=== PATIENT | female | born 1990 | race Caucasian/White ===

== ENCOUNTER 2022-07-09 19:31 | Emergency (ER) | payer BC, SELFPAY ==
[2022-07-09 19:50] VITALS: BP 115/78; PULSE 89; TEMP 36.9; O2SAT 99; BMI 39.0
[2022-07-09] MEDS: ONDANSETRON ODT 4 MG TAB PO (20:33)
[2022-07-09] MEDS: IBUPROFEN 400 MG TABLET 800 MG PO (20:33)
[2022-07-09 20:35] LABS: Appearance Urine Clear (Clear); Bilirubin Urine Negative (Negative); Blood Urine Negative (Negative); Color Urine Yellow (Yellow); Glucose Urine Negative (Negative); Ketones Urine Trace (Negative); Leukocyte Esterase Urine Negative (Negative); Nitrite Urine Negative (Negative); Protein Urine Negative (Negative); Specific Gravity Urine 1.025 (1.000-1.030)
--- OUTSIDE RECORDS SUMMARY | 2022-07-09 20:38 | XMS_ITS | Encounter Summary ---
:1990 Author Organization [place] Address [facility] 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 Diagnoses Previous, desires PT WILL NOT BE 39 WEEKS WILL BE 36 WKS DUE TO PREVIOUS CLASSICAL Rh Labor And Delivery Procedures SECTION repeat, bilateral salpingectomy [address] [place], [place] [phone] Phone: Fax: Referral ID Status Reason Start Date Expiration Date Visits Requ ested Visits Authorized [id number] 1 1 Encounter Details Date Type Department Care Team Description 11/09/2018 Surgery [facility] Sue Herrera CESARE AN SECTION repeat, [place] [facility] bilateral salpingectomy [address] [facility] [place], [place] [address] [facility] [id number] [facility] [address] [place], [place] [address] Surgery Details Date/Time Status Location OR Service Patient Case Case Traum a Class Class Type Case? 11/09/18 11:40 Posted RH L+D LD 01 Obstetrics Surgery AM Admit Panel 1 Procedure LRB Anes Op Region Wound Class Commen ts SECTION repeat, N/A Spinal Abdomen II-Clean Co ntaminated bilateral salpingectomy Surgeon Surgeon Role Service Panel Sue Herrera MD Primary Obstetrics 1 Special Needs 4'11 240# stated documented in this encounter Social History Tobacco Use Types Packs/Day Years Used Date Smoking Tobacco: Never Smokeless Tobacco: Never Comments: Patient denies smoking Alcohol Use Standard Drinks/Week Comments No 0 (1 standard drink = 0.6 oz pure alcoho l) Alcohol Habits Answer Date Recorded How often do you have a drink containing alcohol? Never 11/02/2018 How many drinks containing alcohol do you have on a typical Not asked day when you are drinking? How often do you have six or more drinks on one occasion? No t asked Sex Assigned at Date Recorded Not on file documented as of this encounter Last Filed Vital Signs Vital Sign Reading Time Taken Comments Blood Pressure 111/54 11/09/2018 1:04 PM CATCHER HELPER Pulse 88 11/09/2018 10:00 AM CATCHER HELPER Temperature 36.4 ??C (97.5 ??F) 11/09/2018 1:04 PM CATCHER HELPER Respiratory Rate 18 11/09/2018 1:04 PM CATCHER HELPER Oxygen Saturation 96% 11/09/2018 1:08 PM CATCHER HELPER Inhaled Oxygen Concentration - - Weight 108.9 kg (240 lb) 11/09/2018 10:32 AM CATCHER HELPER Height 149.9 cm (4' 11) 11/09/2018 10:32 AM CATCHER HELPER Body Mass Index 48.47 11/09/2018 10:32 AM CATCHER HELPER documented in this encounter Discharge Summaries Sue Herrera MD - 11/12/2018 11:20 AM CST Patient was admitted 11/09/18 for repeat c/s and bilateral salpingectomies. She had a routine post-opcourse and was discharged with routine teaching. Please see hospital chart for specifics of admission. Sue Herrera HER HELPER documented in this encounter Discharge Instructions Discharge InstructionsToKerrie escamilla RN - 11/12/2018 9:32 AM CST Postop Instructions Follow up in 6 weeks for visit. Remove clear dressing in 1 week. : [phone] Activity ?? Do not lift more than 10 pounds for 6 weeks after surgery. Ask family and friends for help when you need it. ?? No driving until you have stopped taking your pain medications (usually two weeks after surgery). ?? No heavy exercise or activity for 6 weeks. Don't do anything that will put a strain on your surgery site. ?? Don't strain when using the toilet. Your care team may prescribe a stool softener if you have problems with your bowel movements. To care for your incision: ?? Keep the incision clean and dry. ?? Do not soak your incision in water. No swimming or hot tubs until it has fully healed. You may soak in the bathtub if the water level is below your incision. ?? Do not use peroxide, gel, cream, lotion, or ointment on your incision. ?? Adjust your clothes to avoid pressure on your surgery site (check the elastic in your underwear for example). You may see a small amount of clear or pink drainage and this is normal. Check with your health care provider: ?? If the drainage increases or has an odor. ?? If the incision reddens, you have swelling, or develop a rash. ?? If you have increased pain and the medicine we prescribed doesn't help. ?? If you have a fever above 100.4 F (38 C) with or without chills when placing thermometer under your tongue. The area around your incision (surgery wound), will feel numb. This is normal. The numbness should go away in less than a year. Keep your hands clean: Always wash your hands before touching your incision (surgery wound). This helps reduce your risk ofinfection. If your hands aren't dirty, you may use an alcohol hand-rub to clean your hands. Keep your nails clean and short. Call your healthcare provider if you have any of these symptoms: ?? You soak a sanitary pad with blood within 1 hour, or you see blood clots larger than a golf ball. ?? Bleeding that lasts more than 6 weeks. ?? Vaginal discharge that smells bad. ?? Severe pain, cramping or tenderness in your lower belly area. ?? A need to urinate more frequently (use the toilet more often), more urgently (use the toilet veryquickly), or it martínez when you urinate. ?? Nausea and vomiting. ?? Redness, swelling or pain around a vein in your leg. ?? Problems or a red or painful area on your breast. ?? Chest pain and cough or are gasping for air. ?? Problems with coping with sadness, anxiety or depression. If you have concerns about hurting yourself or the baby, call your provider immediately. ?? You have questions or concerns after you return home. HER HELPER documented in this encounter Medications at Time of Discharge Medication Sig Dispensed Refills Start Date End Date MV-Min-Fe Take 1 tablet by 0 Fum-FA-DHA ( 1 mouth daily PO) venlafaxine (EFFEXOR) 75 Take 75 mg by mouth 0 MG tablet 3 times daily oxyCODONE (ROXICODONE) 5 Take 1-2 tablets 20 tablet 0 11/1211/15/2018 MG tabletIndications: S/P (5-10 mg) by mouth repeat low transverse every 3 hours as needed for pain documented as of this encounter Progress Notes Kerrie Fountain RN - 11/12/2018 11:20 AM CST All discharge instructions were reviewed with patient by commercial lines underwriter and all questions answered. Patient left unit with all belongings and infant at 1120. Filled Oxycodone prescription given to patient and discussed next time available. Meaghan Little MD - 11/12/2018 8:48 AM CST POD3 Feels well, no concerns BP 126/70 Pulse 86 Temp 97.8 ??F (36.6 ??C) (Oral) Resp 18 Ht 1.499 m (4' 11) Wt 108.9 kg(240 lb) LMP 02/23/2018 SpO2 99% BMI 48.47 kg/m?? NAD Abd soft, ND Inc CDI Ext NT POD3 s/p RLTCS discharge home F/u 6 wks Meaghan Bee Sue Mcguire MD - 11/11/2018 7:38 AM CST [facility] Obstetrics Progress Note Subjective: This is the patient's second day since delivery. She is doing well. She is urinating on her own. Pain is controlled with medication. Objective: All vitals stable Temp: 98.1 ??F (36.7 ??C) Temp src: Oral BP: 101/55 Pulse: 78 Heart Rate: 84 Resp: 16 SpO2: 99 % EXAM: Constitutional: healthy, alert, no distress. Abdomen: Abdomen soft, non-tender. BS normal. No masses, fundus is firm. JOINT/EXTREMITIES: extremities normal Incision: dry and intact, some dry blood under dressing Last hemoglobin was Hemoglobin Date Value Ref Range Status 11/10/2018 10.7 (L) 11.7 - 15.7 g/dL Final ] Assessment: Stable course. Plan: Routine care. Ambulation encouraged Breast feeding strategies discussed Pain control measures as needed Reportable signs and symptoms dicussed with the patient Anticipate discharge tomorrow- will monitor for weight loss and pre-term concerns prior to discharge. Sue Herrera Anastasia Baca RN - 11/10/2018 10:08 AM CST Public Health Nurse (PHN) met with patient, discussed resources within [facility]. Provided family resources of [facility] services resource card, home visiting card, community resource guide and car seat information card given and discussed. Family is aware how to add baby to insur ance and have a primary provider arranged for baby. Explained how to self refer to [facility]. Patient declined any questions or concerns. Neville Lockwood MD - 11/10/2018 8:46 AM CST [facility] Obstetrics Post-Op / Progress Note Interval History: Doing well. Pain is well-controlled. No fevers. No history of wound drainage, warmth or significant erythema. Good appetite. Denies chest pain, shortness of breath, nausea or vomiting. Ambulatory. well. Significant Problems: Medications: All medications related to the patient's surgery have been reviewed Physical Exam: All vitals stable EXAM: Constitutional: healthy, alert, no distress. Abdomen: Abdomen soft, non-tender. BS normal. No masses, fundus is firm. Incision: Clean, dry and intact, no erythema or induration. JOINT/EXTREMITIES: extremities normal- no calf tenderness Data: All laboratory data related to this surgery reviewed Lab Results Component Value Date HGB 10.7 (L) 11/10/2018 Assessment and Plan: Assessment: Post-operative day #1 Low transverse repeat section and Bilateral salpingectomy No immediate surgical complications identified. Plan: Ambulation encouraged Neville Sanches MD HER HELPER documented in this encounter Miscellaneous Notes Plan of Care - Kerrie Fountain RN - 11/12/2018 9:28 AM CST Patient meeting expected goals. Is up independent in room, meeting all personal and infant needs. VSS. Pain is being managed with Tylenol, Ibuprofen and Oxycodone. Incision to low abdomen is with barrier film, well approximated, scant dried drainage with no signs of infection noted. Patient is aware to removed barrier film after 1 week as MD today directed her to do and to then follow up in 6 weeks in clinic. Patient is , pumping and gives EBM to infant via bottle. Patient is stable andwill be ready for discharge later today. HER HELPER Plan of Care - Karol Velasquez RN - 11/12/2018 4:53 AM CST Patient vital signs stable and meeting expected outcomes. and bottle feeding infant independently. Up independently and voiding adequately. Pain controlled with tylenol, ibuprofen, and oxycodone. Incision WDL. Able to perform all cares for self and . Bonding well with baby. Plan todischarge home today. Will continue to monitor. HER HELPER Plan of Care - Sherri Caballero RN - 11/11/2018 9:42 PM CST VS within normal limits. Eating and drinking, tolerating regular diet well. Voiding without difficulty. Pt c/o incisional pain, rating pain 5-7/10. Taking Tylenol, Ibuprofen and Oxycodone for pain. Incision covered with barrier film, small amount of old serosanguinous drainage present. Incision is well approximated, no signs of infection noted. Pt is both breast and bottle feeding with donor breast milk. Also pumping and performing hand expression. She has been independent with self and cares. Pt is attentive to 's needs, bonding well. Continue to monitor. HER HELPER Plan of Care - Kerrie Fountain RN - 11/11/2018 11:58 AM CST Patient meeting expected goals. Is up independent in room, meeting all personal and infant needs. Pain is being managed with Tylenol and Ibuprofen and discussed PRN Oxycodone availability. VSS. Incision to low abdomen is with barrier film, small dried drainage present. Incision is well approximated, and no signs of infection noted. Is both breast and bottle feeding infant with donor milk due to weight loss issues. Patient is bonding well with infant and performing all cares. Encouraged walking halls. HER HELPER Plan of Care - Jacquelin Cavazos RN - 11/11/2018 4:53 AM CST Having some increased pain, managing with tylenol and ibuprofen, also trying heating pad. Nipple cream given for sore nipples. Needing encouragement and reinforcement for baby cares. No support person this shift. Bonding well with baby. Safe sleep practices reinforced. HER HELPER Plan of Care - Shante Artis RN - 11/10/2018 9:50 PM CST Pt up ambulating independently in room . Voiding without difficulty. Incision has moist drainage under Tegaderm. Reports adequate pain control with current pain plan. Family present and supportive. Meeting expected goals. Mother attentive to infants needs. , hand expressing milk post feeds and pumping. Mother has been unable to express more than 1 or 2 drops post feeds this evening evenwith RN assistance. HER HELPER Plan of Care - Zuleyka Farrell RN - 11/10/2018 3:23 PM CST VSS, Bonding well with baby. Pain is well controlled with Toradol and tylenol. Lo catheter removed at 13:00, tolerated well. Awaiting first void post removal. Ambulated in room with a stand by assist. Steady on her feet, will call out when she needs to use the bathroom. Tolerating regular diet well. Independent in self and baby cares. is going well. HER HELPER Note - Yesenia Shah RN - 11/10/2018 11:33 AM CST LC visit. Infant has been latching frequently and well per Norah's report and RN assessments, however is LPT and small. OT's have been stable. She is also using hand expression and pumping. Weight loss is WNL. Plan for continued support with feeds and close monitoring of latch. No questions present at this time. HER HELPER Plan of Care - Aracely Brink RN - 11/10/2018 5:09 AM CST Pt stable and meeting expected goals. VSS. Pt ambulated to the bathroom and tolerated well. Urine output is adequate. Pain managed with tylenol and toradol. Pt complains of itching & given nubain, but did not get full relief. Will reassess when nubain is due again. is going well. Pt needs reinforcement on infant LPT education. Bonding with infant. Continued to monitor. HER HELPER Plan of Care - Shante Artis RN - 11/09/2018 10:08 PM CST Pt c/o nausea and had episode of emesis tolerating small amounts of water and some crackers. Incision covered with Tegaderm moist drainage noted . Reports adequate pain control with current pain plan. Family present and supportive part of the shift. Meeting expected goals. Mother attentive to infants n eeds. and hand expressing. VSS will continue to monitor. HER HELPER Plan of Care - Khadijah Cuellar RN - 11/09/2018 5:03 PM CST Data: Norah Chun transferred to [facility] via cart at 1630. Baby transferred via parent's arms. Action: Receiving unit notified of transfer: Yes. Patient and family notified of room change. Reportgiven to CHRISTIANNE Frey at 1435. Belongings sent to receiving unit. Accompanied by Registered Nurse. Oriented patient to surroundings. Call light within reach. ID bands double-checked with receiving RN. Response: Patient tolerated transfer and is stable. HER HELPER Plan of Care - Jasmine Gibson RN - 11/09/2018 3:32 PM CST Toxicology screen done in error. Patient denies being a smoker. Bedside handoff given to Khadijah FAUST. HER HELPER Provider Notification - Jasmine Gibson RN - 11/09/2018 1:30 PM CST 11/09/18 1311 Provider Notification Provider Name/Title Dr. Herrera Method of Notification At Bedside Request Evaluate in Person HER HELPER Op Note - Sue Herrera MD - 11/09/2018 1:13 PM CST Procedure Date: 11/09/2018 PREOPERATIVE DIAGNOSES: 1. Prior section x 4; most recent classical. 2. Desired permanent sterilization. 3. Inadequate cardiac visualization on outside echo of fetus. POSTOPERATIVE DIAGNOSES: 1. Prior section x 4; most recent classical. 2. Desired permanent sterilization. 3. Inadequate cardiac visualization on outside echo of fetus. 4. Tissue dystocia. 5. Adhesions. PROCEDURES: 1. Repeat low transverse section. 2. Lysis of adhesions. 3. Vacuum-assisted section. 4. Bilateral salpingectomies. SURGEON: Sue Herrera MD MACHINE PACKAGER: Oneida Ochoa PA-C, and Meaghan Bee MD ANESTHESIA: Spinal. ESTIMATED BLOOD LOSS: 146 QBL. SPECIMENS: Cord blood and blood as well as bilateral fallopian tubes. FINDINGS: A male infant with scarring of the uterus to anterior abdomen. COMPLICATIONS: Scarring of the uterus and tissue dystocia of the head. INDICATIONS: The patient is a 28-year-old G5, P3-1-0-4, at 36-0/7 weeks. She has had 4 prior sections, most recently a classical section for presentation. this time has been complicated by maternal obesity, desire for sterilization and inadequate visualization on 2 echos on outside evaluation; therefore, requiring echo within 24-48 hours after delivery. She transferred care to [facility] due to the ability to do echos over her primary provider Marina. She was seen in the office. Risks, benefits and alternatives were discussed of the procedure and she did sign informed consent. DESCRIPTION OF PROCEDURE: The patient was brought to the operating room where spinal anesthetic was placed. She was prepped and draped in the normal sterile fashion. A pause for the cause was performed. The patient and procedure were correctly identified. At that point, a low transverse skin incision was made. It was carried down to the underlying fascial layer, which was scored with Bovie electrocautery and stretched bilaterally. Two Denny clamps were placed anteriorly and the fascial layer was dissected from the rectus muscles using sharp dissection both inferior and superior. The rectus muscleswere then and the peritoneum was tented with 2 [place] clamps and entered sharply with the Hubbard scissors. A stretch of the peritoneal cavity was performed. It was taken down in meticulous layers. There were adhesions of the anterior uterus to the anterior abdominal wall. This was taken down in layers using Bovie electrocautery. The bladder flap was created and bluntly dissected inferiorly. Due to the thin lower uterine segment, it was tented anteriorly with 2 Allis clamps, entered sharply with a scalpel, clamps were removed and the hysterotomy was stretched bilaterally. The vertex delivered through the uterine wall; however, due to maternal tissue dystocia, a Kiwi vacuum extractor was placed 2 cm into the posterior fontanel and was placed in the green zone and without any pop-offs,the vertex delivered atraumatically. The fetus was delivered and remained on the abdomen with stimulation for delayed cord clamp of 1 minute, the cord was then clamped and cut by myself and the was handed to the NICU staff. At this point, the placenta delivered spontaneously, Schultze pres entation, intact with a 3-vessel cord and the uterus was attempted to be exteriorized. There was significant scarring of the uterus to the anterior abdominal wall. This was taken down in layers with Bovie electrocautery. The uterus was then exteriorized and wrapped in a moist lap. The hysterotomy was c losed with a running locked suture of 0 Monocryl and a second horizontal imbricating suture of 0 Monocryl. The bilateral salpingectomies were performed with LigaSure cautery device and the uterus was returned to the maternal abdomen noting hemostasis of both salpingectomy sites as well as the hysterotomy. Pericolic gutters were irrigated with moist laps and underlying tissue layers were made hemostatic with Bovie electrocautery. The fascia was closed with a running suture of 0 Vicryl without palpable defect. The skin was closed with INSORB malini and dressed with a Tegaderm dressing. All counts were correct and she will be transferred to PACU in stable condition. SUE HERRERA MD MT: NTS Name: NORAH RODRIGUEZ MRN: [id number] Account: [id number] : 1990 Procedure Date: 11/09/2018 Document: [id number] cc: Lidya Hanson MD HER HELPER Brief Op Note - Sue Herrera MD - 11/09/2018 1:04 PM CST [facility] Gynecology Brief Operative Note Pre-operative diagnosis: 1. 4 prior c/s, one classical 2. Desired permanent sterilization 3. Inadequate cardiac visualization on outside echo of fetus. 4. Desired sterilization Post-operative diagnosis Same 4. Tissue dystocia 5. adhesions Procedure: Procedure(s): 1. Repeat low transverse c/s 2. Lysis of adhesions 3. Vacuum assisted vaginal delivery 4. Bilateral salpingectomies Surgeon: Sue Herrera MD Assistants(s): Oneida JENSEN and Meaghan Bee MD Anesthesia: Spinal Estimated blood loss: 146 ml QBL Specimens: Cord blood and blood and bilateral fallopian tubes Findings: Male infant, scaring of uterus to anterior abdomen Complications: Scaring of uterus. Tissue dystocia of head Comments: See dictated operative report for full details Sue Herrera HER HELPER Plan of Care - Jasmine Gibson RN - 11/09/2018 11:56 AM CST , 36 weeks gestation. Here for repeat section and bilateral salpingectomy, patient has classical incision. Category 1 tracing. Consent signed. Education done. home with children. Patient's mother will accompany patient to surgery. HER HELPER Pharmacy-Admission Medication History - Maria Isabel, Annabelle T, [facility] - 11/07/2018 4:55 PM CST Admission medication history interview status for this patient is complete. See [facility] admission navigator for allergy information, prior to admission medications and immunization status. RETAIL SERVICE SPECIALIST meds completed by pre-admitting nurse Zohreh Andrade and reviewed by pharmacy Prior to Admission medications Medication Sig Last Dose Taking? Auth Provider aspirin 81 MG EC tablet Take 81 mg by mouth daily Yes Reported, Patient omeprazole 20 MG tablet Take 20 mg by mouth daily Yes Reported, Patient ondansetron (ZOFRAN-ODT) 8 MG ODT tab Take 8 mg by mouth every 8 hours as needed for nausea Yes Reported, Patient MV-Min-Fe Fum-FA-DHA ( 1 PO) Take 1 tablet by mouth daily Yes Reported, Patient venlafaxine (EFFEXOR) 75 MG tablet Take 75 mg by mouth 3 times daily Yes Reported, Patient HER HELPER documented in this encounter Plan of Treatment Not on filedocumented as of this encounter Procedures Procedure Name Priority Date/Time Associated Comments Diagnosis HEMOGLOBIN Routine 11/10/2018 7:01 AM Results f or this CATCHER HELPER procedure are i n the results section. SURGICAL PATHOLOGY Routine 11/09/2018 12:46 Resul ts for this EXAM PM CATCHER HELPER procedure are i n the results section. SECTION, WITH 11/09/2018 11:49 Previous, jennifer res BILATERAL AM CATCHER HELPER PT WILL NOT BE 39 SALPINGECTOMY WEEKS WILL BE 36 WKS DUE TO PREVIOUS CLASSICAL Special Needs 4' 240# stated DRUG ABUSE SCRN 7 UR Routine 11/09/2018 10:00 AM Results for this (/) (RH, SH, UR) CATCHER HELPER procedure are in the results section . GROUP B STREP PCR Routine 11/02/2018 Results fo r this procedure are i n the results section . RUBELLA ANTIBODY IGG Routine 04/15/2018 Results for this procedure are i n the results section . RUBELLA ANTIBODY IGG Routine 04/15/2018 Results for this procedure are i n the results section . HIV ANTIGEN ANTIBODY COMBO Routine 04/15/2018 R esults for this procedure are i n the results section . HEPATITIS B SURFACE ANTIGEN Routine 04/14/2018 Results for this procedure are i n the results section . documented in this encounter Results (ABNORMAL) Hemoglobin (11/10/2018 7:01 AM CATCHER HELPER) P athologist Signature Hemoglobin 10.7 (L) 11.7 - 15.7 11/10/2018 [place] g/dL 7:17 AM CATCHER HELPER [facility] Specimen Anatomical Collection Method Collection Time Receive d Time (Source) Location / / Volume Laterality Blood specimen 11/10/2018 7:01 AM 019 7:02 (specimen) CATCHER HELPER AM CATCHER HELPER Sue Herrera MD LAB - BLOOD ORDERABLES Performing Organization Address City/State/ZIP Code Phon e Number [place] [address] [address], [place] [address] [facility] [address] [phone] [facility] [phone] Surgical pathology exam (11/09/2018 12:46 PM CATCHER HELPER) Component Value Ref Test Analysis Performed At [facility] Range Method Time Signature Copath Report Patient Name: NORAH RODRIGUEZ MR#: [id number] Specimen #: [id number] Collected: 11/09/2018 Received: 11/09/2018 Reported: 11/10/2018 12:27 Ordering Phy(s): SUE HERRERA For improved result formatting, select 'View Enhanced Report Format' under Linked Documents section. SPECIMEN(S): Fallopian tubes, bilateral FINAL DIAGNOSIS: Fallopian tubes, right and left, salpingectomies. - Two benign transected fallopian tubes present. Electronically signed out by: Tylor Rodriguez M.D. CLINICAL HISTORY: Sterilization. GROSS: The specimen is received in formalin labeled with the patien t's name, identifying information and designated fallopian tubes, bilateral. ??It consists of two fimbriate d fallopian tubes, each measuring 5 x 1 cm. ??The serosa is pink-purple and edematous. ??Chlorine Plant Operator sectio ns of both fallopian tubes with fimbria are submitted in 2 blocks. (Dictated by: MIKEY Erazo 2018 03:58 PM) MICROSCOPIC: Microscopic evaluation performed. The technical component of this testing [facility], with the professional compo nent performed at the [facility], [address] [place] [address] ??[phone] ([phone]) CPT Codes: A: 00204-LO5 COLLECTION SITE: Client: [facility] Location: RHOB (R) Specimen (Source) Anatomical Collection Method Collection Time Re ceived Time Location / / Volume Laterality Tissue specimen BOTH FALLOPIAN 11/09/2018 12:46 (specimen) TUBES / Unknown PM CATCHER HELPER Sue [facility] Performing Organization Address City/State/ZIP Code Phon e Number [place] Drug Screen Urine / (11/09/2018 10:00 AM CATCHER HELPER) [facility] Hospitality Method Time Signature Amphetamine Qual Negative NEG^Negati 11/09/2018 [place] Urine ve 11:38 AM [facility] Comment: Cutoff for a negative amphetami ne is 500 ng/mL or less. Cannabinoids Qual Negative NEG^Negative 11/09/2018 11:39 AM [facility] Comment: Cutoff for a negative cannabino id is 50 ng/mL or less. Cocaine Qual Urine Negative NEG^Negative 11/09/2018 11:38 A [facility] Comment: Cutoff for a negative cocaine i s 300 ng/mL or less. Opiates Qualitative Negative NEG^Negative 11/09/2018 11:38 AM [facility] Comment: Cutoff for a negative opiate is 300 ng/mL or less. Pcp Qual Urine Negative NEG^Negative 11/09/2018 11:39 AM [facility] Comment: Cutoff for a negative PCP is 25 ng/mL or less. Specimen Anatomical Collection Method Collection Time Receive d Time (Source) Location / / Volume Laterality Urine specimen URINE SPECIMEN / 11/09/2018 10:00 11/09 (specimen) Unknown AM CATCHER HELPER 11:17 AM [facility] Sue Herrera MD LAB - URINE ORDERABLES Performing Organization Address City/State/ZIP Code Phon e Number M [facility] [address] [address] [facility] [address] [phone] Group B strep PCR (11/02/2018) athologist Signature Group B Strep Negative PCR Patient Reported LAB - MICRO GENERAL ORDERABL ES Rubella Antibody IgG Quantitative (04/15/2018) athologist Signature Rubella YAKELIN negative IgG Specimen (Source) Anatomical Location Collection Method / Collectio n Time Received Time / Laterality Volume Blood specimen (specimen) Patient Reported LAB - BLOOD ORDERABLES Rubella Antibody IgG Quantitative (04/15/2018) [facility] gist Method Time Signature Rubella Antibody negative IU/mL IgG Quantitative Specimen (Source) Anatomical Location Collection Method / Collectio n Time Received Time / Laterality Volume Blood specimen (specimen) Patient Reported LAB - BLOOD ORDERABLES HIV Antigen Antibody Combo (04/15/2018) Analysis Performed At [facility] Time Signature HIV Antigen non-reacti Antibody Combo ve Specimen (Source) Anatomical Location Collection Method / Collectio n Time Received Time / Laterality Volume Blood specimen (specimen) Patient Reported LAB - BLOOD ORDERABLES Hepatitis B surface antigen (04/14/2018) [facility] Time Signature Hep B Surface non-reacti Agn ve Specimen (Source) Anatomical Location Collection Method / Collectio n Time Received Time / Laterality Volume Blood specimen (specimen) Patient Reported LAB - BLOOD ORDERABLES documented in this encounter Visit Diagnoses Not on filedocumented in this encounter Administered Medications Inactive Administered Medications - up to 3 most recent administrations Medication Order MAR Action Action Date Dose Rate Site dextrose 5% in lactated ringers New Bag 11/10/2018 4:20 AM CATCHER HELPER 125 mL/hr infusion at 125 mL/hr, Intravenous, CONTINUOUS, Subsequent IV at nurse's discretion. DC IV when tolerating fluids or at nurse's discretion & saline lock., Post-procedure, Starting on Wed11/09/18 at 1400, Until 11/12/18 at 1321 New Bag 11/09/2018 8:45 PM CATCHER HELPER 125 mL/hr ibuprofen (ADVIL/MOTRIN) tablet 800 mg Given 11/12/2018 8:59 AM CATCHER HELPER 800 mg 800 mg, Oral, EVERY 6 HOURS PRN, other, cramping, Starting on Ene 11/10/18 at 1200, Start 6 hours after ketorolac is completed (if ordered). Max dose: 3200 mg/day, Post-procedure Given 11/12/2018 1:31 AM CATCHER HELPER 800 mg Given 11/11/2018 7:06 PM CATCHER HELPER 800 mg medication instruction CONTINUOUS PRN, Starting on Wed11/09/18 at 1349, Until 11/12/18 at 1321, -All intrathecal medications must be preserva tive free -All orders must be compounded in preservative free Normal Saline -Absolut shailesh no anticoagulants, thrombolytics, or antiplatelet medications or other opioid analgesics or other sedatives without prior notification of Anesthesia Service -All patients who receive intrathecal medications must have IV access., PACU/Phase II Opioid plan - medication inst ruction CONTINUOUS PRN, Starting on Wed11/09/18 at 1349, Until 11/12/18 at 1321, May give opioids (NOT Sedatives) as ordered by OB provider when patient meets parameters: respirations greater than 14 breaths per m inute, is NOT somnolent, oxygen saturation is greater than 95%, pain inadequate ly controlled with other adjuvant medications. May give other medications per O B provider orders., PACU/Phase II ORAL Pain Medications - may administer a s ordered by surgeon for take home use CONTINUOUS PRN, Starting on Wed11/09/18 at 1349, Until 11/12/18 at 1321, May administer oral pain medications as ordered by surgeon for take home use. Discontinue IV pain medication prior to administration of oral pain medication., PACU/Phase II oxyCODONE (ROXICODONE) tablet 5-10 mg Given 11/12/2018 8:59 AM CATCHER HELPER 5 mg 5-10 mg, Oral, EVERY 3 HOURS PRN, other, pain control or improvement in physical function. Hold dose for analgesic side effects., Starting on Wed11/09/18 at 1350, Start with the lowest dose. May adjust dose by 5 mg every 3 hours as needed. Notify provider to assess for uncontrolled pain or analgesic side effects. Hold while on ROUTE AIDE or with regular IV opioid dosing. Maximum total is 80 mg in 24 hours., Post-procedure Given 11/12/2018 4:22 AM CATCHER HELPER 5 mg Given 11/11/2018 8:06 PM CATCHER HELPER 5 mg oxytocin (PITOCIN) 30 units in New Bag 11/09/2018 3:32 PM CATCHER HELPER 100 mL/hr 100 mL/hr 500 mL 0.9% NaCl infusion 100 mL/hr, Intravenous, CONTINUOUS, Starting on Wed11/09/18 at 1400, Anesthesia Provider to administer at 340 mL/hr for 30 minutes (or longer per provider discretion) then decrease to 100 mL/hr. Continue until a total of 2 bags administered (1st bag initiated by Anesthesia Provider.) Discontinue IV or saline lock IV per nurse discretion., Post-procedure senna-docusate (SENOKOT-S/PERICOLACE) Given 11/12/2018 8:[address] 1 tablet 8.6-50 MG per tablet 1 tablet 1 tablet, Oral, 2 TIMES DAILY PRN, constipation, Starting on Wed11/09/18 at 1350, If no bowel movement in 24 hours, increase to 2 tablets PO. Hold for loose stools. Preferred agent for constipation related to opioids., Post-procedure Given 11/11/2018 9:06 AM CATCHER HELPER 1 tablet Given 11/10/2018 10:52 PM CATCHER HELPER 1 tablet senna-docusate (SENOKOT-S/PERICOLACE) 8. 6-50 MG per tablet 2 tablet 2 tablet, Oral, 2 TIMES DAILY PRN, const ipation, Starting on Wed11/09/18 at 1350, Hold for loose stools. Preferred agent for constipatio n related to opioids., Post-procedure sodium chloride 0.9% (bottle) irrigation Given 11/09/2018 1:09 PM CATCHER HELPER 475 mLs PRN, Starting on Wed11/09/18 at 1309, Anesthesia Intra-op sodium chloride 0.9% (bottle) irrigation Given 11/09/2018 1:10 PM CATCHER HELPER 50 mLs PRN, Starting on Wed11/09/18 at 1310, Anesthesia Intra-op venlafaxine (EFFEXOR) tablet 75 mg Given 11/12/2018 8:59 AM CATCHER HELPER 75 mg 75 mg, Oral, 3 TIMES DAILY, First dose on Wed11/09/18 at 1600 Given 11/11/2018 9:31 PM CATCHER HELPER 75 mg Given 11/11/2018 4:15 PM CATCHER HELPER 75 mg documented in this encounter Active and Recently Administered Medications Times are shown in CATCHER HELPER. Scheduled Medication Order 11/10/2018 11/11/2018 11/12/2018 acetaminophen (TYLENOL) tablet 975 mg 0242 (Given - Pr ovider: Aracely Brink RN)1114 (Given - Provider: Zuleyka Farrell RN)2001 (Given - Provider: Shante Artis RN) 0343 (Given - Provider: Jacquelin Cavazos, CHRISTIANNE )1129 (Given - Provider: Kerrie Fountain, CHRISTIANNE)2005 (Given - Provider: Sherri Caballero RN) 0422 (Given - Provider: Karol Velasquez, CHRISTIANNE) 975 mg, Oral, EVERY 8 HOURS, First dose on Wed11/09/18 at 1400, For 3 days, Do not use if patient has an active opioid/acetaminophen combined analgesic product ordered for pain. Maximum acetaminophen do se from all sources = 75 mg/kg/day not to exceed 4 grams/day., P ost-procedure ketorolac (TORADOL) injection 30 mg (COMPLETED) 0242 ( Given - Provider: Aracely Brink, CHRISTIANNE)0926 (Given - Provider: Zuleyka Farrell RN) 30 mg, Intravenous, EVERY 6 HOURS, First dose on Wed11/09/18 at 1400, For 24 hours, Give first dose in PACU (alright to give with narcotic analgesic if ordered) X 24 hours Can cause pain on injection. I f ordered intravenously (IV) : administe r through a running maintenance fluid over 1 minute followed by a flush. If patient complains of pain on injection, may dilute 15-30 mg in 5 mL and push over 1 to 2 minutes. , Post-procedure scopolamine (TRANSDERM-SCOP) patch REMOVAL 1800 (Patch /Med Removed - Provider: Shante Artis RN) Ene 11/10/18 at 1130, For 1 dose, Remove patch 24 hours after it was placed., PACU/Phase II venlafaxine (EFFEXOR) tablet 75 mg 0926 (Given - Provi ming: Zuleyka Farrell RN)1609 (Given - Provider: Shante Artis RN)2252 (Given - Provider: Shante Artis RN) 0906 (Given - Provider: Rula Orona)1615 (Given - Provider: Sherri Caballero, CHRISTIANNE)2131 (Given - Provider: Sherri Caballero RN) 0859 (Given - Provider: Kerrie Fountain, CHRISTIANNE) 75 mg, Oral, 3 TIMES DAILY, First dose on Wed11/09/18 at 1600 Continuous Medication Order 11/10/2018 11/11/2018 11/12/2018 dextrose 5% in lactated ringers infusion 0420 (New Bag - Provider: Aracely Brink, CHRISTIANNE) at 125 mL/hr, Intravenous, CONTINUOUS, S ubsequent IV at nurse's discretion. DC IV when tolerating fluids or at nurse's discretion & saline lock., Post- procedure, Starting Wed11/09/18 at 1400, Until 11/12/18 at 1321 oxytocin (PITOCIN) 30 units in 500 mL 0.9% NaCl infusion 100 mL/hr, Intravenous, at 100 mL/hr, CO NTINUOUS, Starting 11/09/18 at 1400, Post-procedure, Anesthesia Provider to administer at 340 mL/hr for 30 minutes (or longer per provider discretion) then dec rease to 100 mL/hr. Continue until a tot al of 2 bags administered (1st bag initiated by Anesthesia Provider.) Discontinue IV or saline lock IV per nurse discretion. PRN Medication Order 11/10/2018 11/11/2018 11/12/2018 acetaminophen (TYLENOL) tablet 650 mg 650 mg, Oral, EVERY 4 HOURS PRN, other, multimodal surgical pain management along with NSAIDS and opioid medication as indicated based on pain control and physical function., Starting 11/12/18 at 000 0, May give first dose 4 hours after las t scheduled dose of acetaminophen Maximum acetaminophen dose from all sources = 75 mg/kg/day not to exceed 4 grams/day., Post-procedure bisacodyl (DULCOLAX) Suppository 10 mg 10 mg, Rectal, DAILY PRN, constipation, Starting 11/11/18 at 0000, Start POD 2, Post-procedure hydrocortisone 2.5 % cream Rectal, 3 TIMES DAILY PRN, hemorrhoids, Starting 11/09/18 at 1350, Apply to hemorrhoids. Send only if nurse requests., Post-procedure ibuprofen (ADVIL/MOTRIN) tablet 800 mg 1609 (Given - P rovider: Shante Artis RN)2253 (Given - Provider: Shante Artis RN) 0728 (Given - Provider: Jacquelin Cavazos, CHRISTIANNE)1251 (Given - Provider: Kerrie Fountain, CHRISTIANNE)1906 (Given - Provider: Sherri Caballero RN) 0131 (Given - Provider: Karol langston RN)0859 (Given - Provider: Kerrie Fountain, CHRISTIANNE) 800 mg, Oral, EVERY 6 HOURS PRN, other, cramping, Starting Ene 11/10/18 at 1200, Start 6 hours after ketorolac is completed (if ordered). Max dose: 3200 mg/day, Post-procedure lactated ringers BOLUS 1,000 mL Intravenous, 1,000 mL, ONCE PRN, post pa rtum hemorrhage (PPH), Starting 11/09/18 at 1350, For 1 dose, Rate: 500-1000 mL/hr. Start IF HEMORRHAGE, Post-procedure lanolin ointment Topical, EVERY 1 HOUR PRN, dry skin, sor eness, Starting Wed11/09/18 at 1350, Apply to sore nipples after feedings, Post-procedure lidocaine (LMX4) cream Topical, EVERY 1 HOUR PRN, pain, with VA D insertion or accessing implanted port., Starting Wed11/09/18 at 1350, Do NOT give if patient has a history of allergy to any local anesthetic or any isela pro duct. Apply at least 30 minutes prior to VAD insertion or port access. In divided doses as needed for size of site for insertion with MAX Dose: 2.5 g (?? of 5 g tube), Post-procedure lidocaine 1 % 0.1-1 mL 0.1-1 mL, Other, EVERY 1 HOUR PRN, mild pain with VAD insertion., Starting Wed11/09/18 at 1350, Do NOT give if patient has a history of allergy to any local anesthetic or any isela product. MAX dose 1 mL subcutaneous OR intradermal in divid ed doses as needed for VAD insertion., Post-procedure medication instruction CONTINUOUS PRN, Starting Wed11/09/18 at 1349, Until 11/12/18 at 1321, -All intrathecal medications must be preservative free -All orders must be compounded in preservative free Normal Saline -Absolut shailesh no anticoagulants, thrombolytics, or antiplatelet medications or other opioid analgesics or other sedatives without prior notification of Anesthesia Service -All patients who receive intrathecal medications must have IV access., PACU/Phase II nalbuphine (NUBAIN) injection 2.5-5 mg (CANCELED) 0032 (Given - Provider: Aracely Brink RN)0110 (Given - Provider: Aracely Brink RN)0656 (Given - Provider: Aracely Brink RN) 2.5-5 mg, Intravenous, EVERY 6 HOURS PRN , other, for pruritus, Starting Wed11/09/18 at 1349, Give 2.5 mg initially. If pruritus persists after 30 minutes, may give additional 2.5 mg. If effective, then repeat effective dose Q6H PRN pruritus., PACU/Phase II naloxone (NARCAN) injection 0.1-0.4 mg 0.1-0.4 mg, Intravenous, EVERY 2 MIN PRN , opioid reversal, Starting 11/09/18 at 1350, For respiratory rate LESS than or EQUAL to 8. Partial reversal dose: 0.1 mg titrated q 2 minutes for Analgesia Si de Effects Monitoring Sedation Level of 3 (frequently drowsy, arousable, drifts to sleep during conversation).Full reversal dose: 0.4 mg bolus for Analgesia Side Effects Monitoring Sedation Level of 4 ( somnolent, minimal or no response to sti mulation). For ordered IV doses 0.1-2mg give IVP. Give each 0.4mg over 15 seconds in emergency situations. For non- emergent situations further dilute in 9mL of NS to facilitate titration of response., Post-procedure No MMR Needed - Assessment: Patient does not need MMR vaccine CONTINUOUS PRN, Starting Wed11/09/18 at 1350, Until 11/12/18 at 1321, Post-procedure NO Rho (D) immune globulin (RhoGam) needed - mother Rh POSITIVE CONTINUOUS PRN, Starting Wed11/09/18 at 1350, Until 11/12/18 at 1321, Post-procedure No Tdap Needed - Assessment: Patient does not need Tdap vaccine CONTINUOUS PRN, Starting 11/09/18 at 1350, Until 11/12/18 at 1321, Post-procedure ondansetron (ZOFRAN) injection 4 mg 4 mg, Intravenous, EVERY 6 HOURS PRN, na usea, vomiting, Administer over 2-5 Minutes, Starting 11/09/18 at 1350, If nausea not resolved in 15 minutes, notify provider before proceeding to prochlorpera zicam (COMPAZINE) [if ordered]. Irritant. For ordered IV doses 0.1-4 mg, give IV Push undiluted over 2-5 minutes., Post-procedure Opioid plan - medication instruction CONTINUOUS PRN, Starting Wed11/09/18 at 1349, Until 11/12/18 at 1321, May give opioids (NOT Sedatives) as ordered by OB provider when patient meets parameters: respirations greater than 14 breaths pe r minute, is NOT somnolent, oxygen satur ation is greater than 95%, pain inadequately controlled with other adjuvant medications. May give other medications per OB provider orders., PACU/Phase II ORAL Pain Medications - may administer as ordered by surgeon for take home use CONTINUOUS PRN, Starting Wed11/09/18 at 1349, Until 11/12/18 at 1321, May administer oral pain medications as ordered by surgeon for take home use. Discontinue IV pain medication prior to administration of oral pain medication., PACU/Phase II oxyCODONE (ROXICODONE) tablet 5-10 mg 12 51 (Given - Provider: Kerrie Fountain, RN)1616 (Given - Provider: Sherri Caballero, RN)2006 (Given - Provider: Sherri Caballero RN) 0422 (Given - Provider: Karol langston RN)0859 (Given - Provider: Kerrie Fountain, CHRISTIANNE) 5-10 mg, Oral, EVERY 3 HOURS PRN, other, pain control or improvement in physical function. Hold dose for analgesic side effects., Starting Wed11/09/18 at 1350, Start with the lowest dose. May adjust dos e by 5 mg every 3 hours as needed. Notif y provider to assess for uncontrolled pain or analgesic side effects. Hold while on ROUTE AIDE or with regular IV opioid dosing. Maximum total is 80 mg in 24 hours., Post-procedure oxytocin (PITOCIN) 30 units in 500 mL 0.9% NaCl infusion 340 mL/hr, Intravenous, at 340 mL/hr, CO NTINUOUS PRN, for hemorrhage (PPH) UNTIL bleeding subsided, Starting Wed11/09/18 at 1350, Post-procedure, When bleeding subsides decrease rate to 100 m L/hr. Notify provider immediately when i nfusion begun. Oxytocin is first line medication for PPH. oxytocin (PITOCIN) injection 10 Units 10 Units, Intramuscular, ONCE PRN, postp artum hemorrhage (PPH). IF no IV access is available., Starting Wed11/09/18 at 1350, For 1 dose, Oxytocin is first line medication for PPH., Post-procedure senna-docusate (SENOKOT-S/PERICOLACE) 8. 6-50 MG per tablet 1 tablet(Linked Group 1) 2251 (Given - Provider: Shante Artis RN) 0906 (Giv en - Provider: Kerrie Fountain, CHRISTIANNE) 0859 (Given - Provider: Kerrie Fountain, Rula N) 1 tablet, Oral, 2 TIMES DAILY PRN, const ipation, Starting Wed11/09/18 at 1350, If no bowel movement in 24 hours, increase to 2 tablets PO. Hold for loose stools. Preferred agent for constipation related to opioids., Post-procedure senna-docusate (SENOKOT-S/PERICOLACE) 8. 6-50 MG per tablet 2 tablet(Linked Group 1) 2252 (See Alternative - Provider: Shante Artis RN) 0906 (See Alternative - Provider: Kerrie Fountain, CHRISTIANNE) 0859 (See Alternative - Provider: Kerrie Fountain, CHRISTIANNE) 2 tablet, Oral, 2 TIMES DAILY PRN, const ipation, Starting Wed11/09/18 at 1350, Hold for loose stools. Preferred agent for constipation related to opioids., Post-procedure simethicone (MYLICON) chewable tablet 80 mg 80 mg, Oral, 4 TIMES DAILY PRN, other, g as, Starting Wed11/09/18 at 1350, Chew., Post-procedure sodium chloride (PF) 0.9% PF flush 3 mL 3 mL, Intracatheter, EVERY 1 MIN PRN, li ne flush, for peripheral IV flush post IV meds, Starting Wed11/09/18 at 1350, Post-procedure sodium phosphate (FLEET ENEMA) 1 enema 1 enema, Rectal, DAILY PRN, constipation , , Starting Wed11/11/18 at 0000, Use if bisacodyl not effective. Start POD 2., Post-procedure tranexamic acid (CYKLOKAPRON) infusion 1 g 1 g, Intravenous, Administer over 10 Min utes, EVERY 30 MIN PRN, Starting Wed11/09/18 at 1350, For 2 doses, Post- hemorrhage (PPH), Provider consultation REQUIRED and MUST be administered as soon a s the ONSET of bleeding AND within 3 breezy rs of regardless of cause of the PPH (atony OR laceration). IF bleeding continues, a 2nd dose may be administered after 30 minutes. IF concern for DIC (Diss eminated Intravascular Coagulation), obt ain coagulation studies PRIOR to administration. Mix in 50 mL or 100 mL normal saline and infuse. Contraindications include: history of PE (Pulmonary Emboli), DVT (Deep Vein Thrombosis) and current Suba rachnoid hemorrhage and active DIC., Post-procedure Linked Groups Order Group 1: senna-docusate (SENOKOT-S/PERICOLACE) 8.6-50 MG per tablet 1 tabletJump to med 1 tablet, Oral, 2 TIMES DAILY PRN, const ipation, Starting Wed11/09/18 at 1350
If no bowel movement in 24 hours, increase to 2 tablets PO. Hold for loose stools. Preferred agent for constipation related to opioids.
Post-procedure Or senna-docusate (SENOKOT-S/PERICOLACE) 8.6-50 MG per tablet 2 tabletJump to med 2 tablet, Oral, 2 TIMES DAILY PRN, const ipation, Starting Wed11/09/18 at 1350
Hold for loose stools. Preferred agent for constipation related to opioids.
Post-procedure documented in this encounter Care Teams Maintenance Journeyman Relationship Specialty Start Date End Date Lidya Hanson PCP - General powerhouse oiler 07/13/18 documented as of this encounter
--- OUTSIDE RECORDS SUMMARY | 2022-07-09 20:38 | XMS_ITS | Encounter Summary ---
:1990 Author Organization [place] Address [facility] [place] [address] Care Team Providers Name Role Phone Lidya Hanson Primary Care Provider Unavailable Reason for Visit Reason Comments Ultrasound obesity, HX c/sec x 4 (1 cla ssical), anterior placenta, re evaluate placenta Encounter Details Date Type Department Care Team Description 10/19/2018 Office Visit [facility] Luis F Foley MD [address] [place] [address] History of classical section (P rimary Dx); Maternal Katie Patel DO [address] [place] [address] Obesity affecting in second [facility] [address] [place] [address] Social History Tobacco Use Types Packs/Day Years Used Date Smoking Tobacco: Never Assessed Alcohol Habits Answer Date Recorded How often do you have a drink containing alcohol? Never 11/02/2018 How many drinks containing alcohol do you have on a typical Not asked day when you are drinking? How often do you have six or more drinks on one occasion? No t asked Sex Assigned at Date Recorded Not on file documented as of this encounter Progress Notes Katie Patel DO - 10/19/2018 2:00 PM CST Please see Imaging tab under Chart Review for details of today's US. Katie Patel DO Maternal- Medicine SHAPER SETUP OPERATOR documented in this encounter Plan of Treatment Not on filedocumented as of this encounter Visit Diagnoses Diagnosis History of classical section - Primary Obesity affecting in second tr imester documented in this encounter Care Teams Pump Attendant Relationship Specialty Start Date End Date Lidya Hanson PCP - General belt measurer 07/13/18 documented as of this encounter
--- OUTSIDE RECORDS SUMMARY | 2022-07-09 20:38 | XMS_ITS | Clinical Summary ---
:1990 Author Organization [place] Address [address] [place] [address]. [place] [address] Care Team Providers Name Role Phone Lidya Hanson Primary Care Provider Unavailable Allergies Active Allergy Reactions Severity Noted Date Comments Cats Other (See Comments) 11/09/2018 Rashes and ring worms Medications Medication Sig Dispensed Refills Start Date End Date Status venlafaxine (EFFEXOR) Take 75 mg by 0 Active 75 MG tablet mouth 3 times daily MV-Min-Fe Take 1 tablet by 0 Active Fum-FA-DHA ( 1 mouth daily PO) Active Problems Problem Noted Date S/P repeat low transverse 11/09/2018 Social History Tobacco Use Types Packs/Day Years [...] Assigned at Date Recorded Not on file Last Filed Vital Signs Vital Sign Reading Time Taken Comments Blood Pressure 122/71 11/12/2018 9:00 AM EVENT MANAGER Pulse 86 11/12/2018 2:00 AM EVENT MANAGER Temperature 36.7 ??C (98.1 ??F) 11/12/2018 9:00 AM EVENT MANAGER Respiratory Rate 18 11/12/2018 9:00 AM EVENT MANAGER Oxygen Saturation 99% 11/10/2018 9:26 AM EVENT MANAGER Inhaled Oxygen Concentration - - Weight 108.9 kg (240 lb) 11/09/2018 10:32 AM EVENT MANAGER Height 149.9 cm (4' 11) 11/09/2018 10:32 AM EVENT MANAGER Body Mass Index 48.47 11/09/2018 10:32 AM EVENT MANAGER Plan of Treatment Not on file Insurance Payer Benefit Plan / Subscriber ID Effective Dates Phone Addre ss Type Group BLUE PLUS BLUE PLUS [id number] 2018-Present [phone] [id number] [place] [address] Care Teams Lead Quality Technician Relationship Specialty Start Date End Date Lidya Hanson PCP - General gas well pumper 07/13/18
--- OUTSIDE RECORDS SUMMARY | 2022-07-09 20:38 | XMS_ITS | Encounter Summary ---
:1990 Author Organization [place] Address [facility] [place] [address] Care Team Providers Name Role Phone Lidya Beltran Primary Care Provider Unavailable Reason for Referral - Closed Specialty Diagnoses / Procedures Referred By Contact Refer red To Contact Diagnoses Suspected anomaly, antepartum, single or unspecified fetus Rh Maternal Med [address] [place] [address] Referral ID Status Reason Start Date Expiration Date Visits Requ ested Visits Authorized [id number] Closed 07/13/2018 07/13/2019 1 1 Diagnostic Imaging Ultrasound - Closed Specialty Diagnoses / Procedures Referred By Contact Refer red To Contact Diagnoses Suspected anomaly, antepartum, single or unspecified fetus Rh Maternal Med Procedures MFM US Comprehensive Single F/U [address] [place] [address] Referral ID Status Reason Start Date Expiration Date Visits Requ ested Visits Authorized [id number] Closed 07/13/2018 07/13/2019 1 1 Reason for Visit Reason Comments Ultrasound Comp- hx c/s x4 Encounter Details Date Type Department Care Team Description [facility] [address] [place] [address] Suspected anomaly, antepartum, sin gle or unspecified fetus (Primary Dx); Maternal Katie Patel DO [address] [place] [address] History of poor growth; [facility] History of c lassical section; [place] Hx of pre-eclampsia in prior , currently [address] [facility] [address] [place] [address] Social History Tobacco Use Types [...] encounter Progress Notes Katie Patel DO - 07/13/2018 11:30 AM CDT Please see Imaging tab under Chart Review for details of today's US. Katie Patel DO Maternal- Medicine documented in this encounter Plan of Treatment Scheduled Referrals Name Type Priority Associated Diagnoses Order S chedule [facility] Genetic Counseling Referral Routine Suspected an omaly, Expected: 08/03/2018 antepartum, single or (Appro ximate), unspecified fetus Expires: 1 documented as of this encounter Results [facility] US Comprehensive Single F/U (08/05/2018 9:59 AM INFORMATION TECHNOLOGY AUDITOR) Anatomical Region Laterality Modality Ultrasound Specimen (Source) Anatomical Collection Method Collection Time Re ceived Time Location / / Volume Laterality 08/05/2018 10:16 AM INFORMATION TECHNOLOGY AUDITOR Impressions 08/05/2018 10:03 AM INFORMATION TECHNOLOGY AUDITOR IMPRESSION Growth parameters and estimated we ight were consistent with appropriate for gestational age pattern of growth. The cardiac anatomy was again poorly visualized. anatomy appeared otherwise normal for gestational age. Narrative 08/05/2018 10:03 AM INFORMATION TECHNOLOGY AUDITOR Comp Follow Up Pat. Name: NORAH RODRIGUEZ Study Date: 08/05/2018 10:16am Pat. NO: [id number] Referring ??MD: CHASIDY BELTRAN Site: [place] Boat Pilot: Tomasa Stokes RDMS : 1990 Age: 28 INDICATION Reevaluate growth and suboptimal a natomy. METHOD Transabdominal ultrasound examination. V iew: Suboptimal view: limited by maternal body habitus. Suboptimal view: limited by position Sorensen . Number of fetuses: 1 DATING ? Date ?Details ?Gest. age ?LESLEY Prior assessment ? GA: 6 w + 1 d ?22 w + 2 d ? 12/07/2018 U/S ? 08/05/2018 ? based upon AC, BPD, Femur, HC ? 22 w + 2 d ? 12/07/2018 Assigned dating ?Dating performed on 07/13/2018, based on the prior assessment (on 04/14/2018) ? 22 w + 2 d ? 12/07/2018 GENERAL EVALUATION Cardiac activity present. FHR 135 bpm. movements present. Presentation tranverse with head to mate rnal left. Placenta anterior. Umbilical cord 3 vessel cord. Amniotic fluid MVP 5.6 cm. ELOINA 18.2 cm. Q1 4.6 cm, Q2 3.1 cm, Q3 5.6 cm, Q4 4.9 cm. BIOMETRY Main Biometry: BPD ?54.4 ?mm ? 22w 4d ?Toribio BENAVIDES ?69.0 ?mm ? 21w 4d ?Nicolaides HC ?197.6 ?mm ?22w 0d ?Hadlock Cerebellum tr ?24.5 ? mm ?22w 4d ?Nicolaides AC ?169.9 ?mm ?22w 0d ?Hadlock Femur ?39.1 ? mm ?22w 4d ?Hadlock Humerus ?35.7 ?mm ? 22w 3d ?Marci Weight Calculation: EFW ? 486 ? g ? 38% ?Truman EFW (lb,oz) ? 1 lb 1 ?oz EFW by ?[facility] ([id number]) Head / Face / Neck Biometry: Company Driver ? 5.6 ? mm CM ?2.1 ? mm ANATOMY The following structures appear normal: Head / Neck ? Cranium. Head size. Head shape. Lateral ventricles. Midline falx. Cavum septi pellucidi. Cisterna magna. Thalami. Face ? Profile. Heart / Thorax ?4-chamber view. LVOT view. Abdomen ? Abdominal wall. Stomach: Stomach size and situs appear normal. Bladder: Bladder appears normal in size and shape. Genitals. Spine ?Cervical spine. Thoracic spine. Lumbar spine. Sacral spine. Extremities / Skeleton ?Rig ht foot. Left foot. The following structures could not be ad equately visualized: Abdomen ? Kidneys. The following structures could not be vi sualized: Heart / Thorax ?Aortic arch view. Bicaval view. The following structures were documented previously: Heart / Thorax ?RVOT view. Ductal arch view. Gender: male. MATERNAL STRUCTURES Cervix ?Not examined Right Ovary ?Not examined Left Ovary ?Not examined RECOMMENDATION We discussed the findings on today's ult rasound with the patient. Your patient has been scheduled for a fe katlyn echocardiogram with Pediatric Cardiology. A copy of that consultation will be forwarded to you separately. A repeat ultrasound has been scheduled i n 4 weeks to reevaluate growth due to BMI >40, Return to primary provider for continued care. Thank-you for the opportunity to partici jack in the care of this patient. If you have questions regarding today's evaluation or if we can be of further service, please contact the Maternal- Medicine Center. anomalies may be present but not detected Procedure Note Quique Cooper MD - 08/05/2018Forma tting of this note might be different from the original. Comp Follow Up Pat. Name:Nirav RODRIGUEZ te:08/05/2018 10:16am Pat. NO: [id number] MD:LIDYA BELTRAN [place]:Rula Redmond :1990Age:28 INDICATION Reevaluate growth and suboptimal a natomy. METHOD Transabdominal ultrasound examination. V iew: Suboptimal view: limited by maternal body habitus. Suboptimal view: limited by position Sorensen . Number of fetuses: 1 DATING Date Details Gest. age LESLEY Prior assessment 04/14/2018 GA: 6 w + 1 d 22 w + 2 d 12/07/2018 U/S 08/05/2018 based upon AC, BPD, Femur, HC 22 w + 2 d 12/07/2018 Assigned dating Dating performed on 06/27, based on the prior assessment (on 04/14/2018) w + 2 d 12/07/2018 GENERAL EVALUATION Cardiac activity present. FHR 135 bpm. movements present. Presentation tranverse with head to mate rnal left. Placenta anterior. Umbilical cord 3 vessel cord. Amniotic fluid MVP 5.6 cm. ELOINA 18.2 cm. Q1 4.6 cm, Q2 3.1 cm, Q3 5.6 cm, Q4 4.9 cm. BIOMETRY Main Biometry: BPD 54.4 mm 22w 4d Hadlock OFD 69.0 mm 21w 4d Nicolaides HC 197.6 mm 22w 0d Hadlock Cerebellum tr 24.5 mm 22w 4d Nicolaides AC 169.9 mm 22w 0d Hadlock Femur 39.1 mm 22w 4d Hadlock Humerus 35.7 mm 22w 3d Marci Weight Calculation: EFW 486 g 38% Truman EFW (lb,oz) 1 lb 1 oz EFW by Hadlock ([id number]) Head / Face / Neck Biometry: Company Driver 5.6 mm CM 2.1 mm ANATOMY The following structures appear normal: Head / Neck Cranium. Head size. Head sha pe. Lateral ventricles. Midline falx. Cavum septi pellucidi. Cisterna magna. Thalami. Face Profile. Heart / Thorax 4-chamber view. LVOT view . Abdomen Abdominal wall. Stomach: Stomach size and situs appear normal. Bladder: Bladder appears normal in size and shape. Genitals. Spine Cervical spine. Thoracic spine. Gillian mbar spine. Sacral spine. Extremities / Skeleton Right foot. Left foot. The following structures could not be ad equately visualized: Abdomen Kidneys. The following structures could not be vi sualized: Heart / Thorax Aortic arch view. Bicaval view. The following structures were documented previously: Heart / Thorax RVOT view. Ductal arch vi ew. Gender: male. MATERNAL STRUCTURES Cervix Not examined Right Ovary Not examined Left Ovary Not examined RECOMMENDATION We discussed the findings on today's ult rasound with the patient. Your patient has been scheduled for a fe katlyn echocardiogram with Pediatric Cardiology. A copy of that consultation will be forwarded to you separately. A repeat ultrasound has been scheduled i n 4 weeks to reevaluate growth due to BMI >40, Return to primary provider for continued care. Thank-you for the opportunity to partici jack in the care of this patient. If you have questions regarding today's evaluation or if we can be of further service, please contact the Maternal- Medicine Center. anomalies may be present but not detected IMPRESSION Growth parameters and estimated we ight were consistent with appropriate for gestational age pattern of growth. The cardiac anatomy was again poorly visualized. anatomy appeared otherwise normal for gestational age. Katie Patel DO [facility] US ORDERABLES documented in this encounter Visit Diagnoses Diagnosis Suspected anomaly, antepartum, sin gle or unspecified fetus - Primary History of poor growth Personal history of problems History of classical section Hx of pre-eclampsia in prior , currently with other poor obstetric hist ory Suspected anomaly, antepartum, sin gle or unspecified fetus documented in this encounter Care Teams Mobile Service Rv Technician Relationship Specialty Start Date End Date Lidya Beltran PCP - General jig and fixture maker 07/13/18 documented as of this encounter
--- OUTSIDE RECORDS SUMMARY | 2022-07-09 20:38 | XMS_ITS | Encounter Summary ---
:1990 Author Organization [place] Address [address] [facility] [place] [address] Care Team Providers Name Role Phone Lidya Beltran Primary Care Provider Unavailable Reason for Referral Diagnostic Imaging Ultrasound - Closed Specialty Diagnoses / Procedures Referred By Contact Refer red To Contact Diagnoses History of poor growth Hx of pre-eclampsia in prior , currently Obesity affecting in second trimester Rh Maternal Med Procedures [facility] Comprehensive Single F/U [address] [place] [address] Referral ID Status Reason Start Date Expiration Date Visits Requ ested Visits Authorized [id number] Closed 08/05/2018 08/05/2019 1 1 RECOVERY WORKER Reason for Visit Diagnostic Imaging Ultrasound - Closed Specialty Diagnoses / Procedures Referred By Contact Refer red To Contact Diagnoses History of poor growth Hx of pre-eclampsia in prior , currently Obesity affecting in second trimester Rh Maternal Med Procedures [facility] Comprehensive Single F/U [address] [place] [address] Referral ID Status Reason Start Date Expiration Date Visits Requ ested Visits Authorized [id number] Closed 08/05/2018 08/05/2019 1 1 Encounter Details Date Type Department Care Team Description 08/31/2018 Hospital Encounter [facility] Finn Edmond MD [address] [place], [place] [address] History of poor growth; Maternal Steffi Zuniga, [address] [place], [place] [address] Hx of pre-eclampsia in prior , currently ; [facility] Obesity affe cting in second trimester [place] [address] [place] [address] Social History Tobacco Use Types Packs/Day Years [...] on file documented as of this encounter Plan of Treatment Not on filedocumented as of this encounter Procedures Procedure Name Priority Date/Time Associated Comments Diagnosis [facility] US COMPREHENSIVE Routine 08/31/2018 2:39 PM History of poo r Results for this SINGLE F/U TIN RECOVERY WORKER growth procedure are in Hx of pre-eclampsia the resu lts in prior , section. currently pregna nt Obesity affecting in second trimester documented in this encounter Results [facility] Comprehensive Single F/U (08/31/2018 2:39 PM TIN RECOVERY WORKER) Anatomical Region Laterality Modality Ultrasound Specimen (Source) Anatomical Collection Method Collection Time Re ceived Time Location / / Volume Laterality 08/31/2018 2:11 PM TIN RECOVERY WORKER Impressions 08/31/2018 4:00 PM TIN RECOVERY WORKER IMPRESSION 1) Intrauterine at 26 0/7 week s gestational age in the Breech presentation. 2) The visualized anatomy appears normal. The ultrasound is limited due to maternal body habitus. 3) Growth parameters and estimated weight were consistent with an appropriate for gestation age pattern of growth. 4) The amniotic fluid volume appeared no rmal. Narrative 08/31/2018 4:00 PM TIN RECOVERY WORKER Comp Follow Up Pat. Name: NORAH RODRIGUEZ Study Date: 08/31/2018 2:11pm Pat. NO: [id number] Referring ??MD: CHASIDY BELTRAN Site: [facility] Boat Hand: Rula Roberts : 1990 Age: 28 INDICATION History of x 4, BMI >40, decli javier aneuploidy screening, Suboptimal heart views on prior ultrasounds (normal peds cardiology echo today) METHOD Transabdominal ultrasound examination. V iew: Sufficient Sorensen . Number of fetuses: 1 DATING ? Date ?Details ?Gest. age ?LESLEY Prior assessment ? GA: 6 w + 1 d ?26 w + 0 d ? 12/07/2018 U/S ? 08/31/2018 ? based upon AC, BPD, Femur, HC ? 25 w + 2 d ? 12/12/2018 Assigned dating ?Dating performed on 07/13/2018, based on the prior assessment (on 04/14/2018) ? 26 w + 0 d ? 12/07/2018 GENERAL EVALUATION Cardiac activity present. FHR 145 bpm. movements present. Presentation thais breech. Placenta anterior . Umbilical cord 3 vessel cord. Amniotic fluid Amount of AF: normal. MVP 6.3 cm. BIOMETRY Main Biometry: BPD ?64.7 ?mm ? 26w 1d ?Hadlock OFD ?80.4 ?mm ? 24w 2d ?Nicolaides HC ?233.1 ?mm ?25w 2d ?Hadlock Cerebellum tr ?29.5 ? mm ?26w 2d ?Nicolaides AC ?203.9 ?mm ?25w 0d ?Hadlock Femur ?44.5 ? mm ?24w 5d ?Hadlock Humerus ?42.7 ?mm ? 25w 4d ?Marci Weight Calculation: EFW ? 755 ? g ? 31% ?Truman EFW (lb,oz) ? 1 lb 11 ? oz EFW by ?Hadlock ([id number]) Head / Face / Neck Biometry: Trial Justice ? 3.5 ? mm Nasal bone ? 8.9 ? mm ANATOMY The following structures appear normal: Head / Neck ? Cranium. Head size. Head shape. Lateral ventricles. Midline falx. Cavum septi pellucidi. Cerebellum. Thalami. Face ? Profile. Heart / Thorax ?4-chamber view. RVOT view. LVOT view. Abdomen ? Abdominal wall. Stomach: Stomach size and situs appear normal. Kidneys. Bladder: Bladder appears normal in size and shape. Genitals. Gender: male. MATERNAL STRUCTURES Cervix ?Not examined Right Ovary ?Not examined Left Ovary ?Not examined RECOMMENDATION We discussed the findings on today's ult rasound with the patient. Hx of 4 prior c/s including 1 classical c/s. Anterior placenta- not low lying. The patient has a hx of preeclampsia with severe features and delivered at 32 weeks previously. She is on a baby ASA. She is very worrie d about developing preE again. Suggested bringing up her concerns with you on Wednesday at her visit. Consider q 2 week visits for serial BP checks, etc. The patient had a echo with Peds C ards which was limited, but was otherwise normal. The aortic arch could not be seen. A echo is recommended after 24-48 hrs of life. A repeat ultrasound has been scheduled h ere in 3 weeks to reevaluate growth. Return to primary provider for continued care. Thank you for the opportunity to partici santiago in the care of this patient. If you have questions regarding today's evaluation or if we can be of further service, please contact the Maternal- Medicine Center. anomalies may be present but not detected Procedure Note Steffi Zuniga, DO - 08/31/2018 Comp Follow Up Pat. Name:GARY Nirav CHUN te:08/31/2018 2:11pm Pat. NO: [id number] MD:LIDYA BELTRAN [facility]Yakelin Mayer RDMS :1990Age:28 INDICATION History of x 4, BMI >40, decli javier aneuploidy screening, Suboptimal heart views on prior ultrasounds (normal peds cardiology echo today) METHOD Transabdominal ultrasound examination. V iew: Sufficient Sorensen . Number of fetuses: 1 DATING Date Details Gest. age LESLEY Prior assessment 04/14/2018 GA: 6 w + 1 d 26 w + 0 d 12/07/2018 U/S 08/31/2018 based upon AC, BPD, Femur, HC 25 w + 2 d 12/12/2018 Assigned dating Dating performed on 06/27, based on the prior assessment (on 04/14/2018) 26 w + 0 d 12/07/2018 GENERAL EVALUATION Cardiac activity present. FHR 145 bpm. movements present. Presentation thais breech. Placenta anterior . Umbilical cord 3 vessel cord. Amniotic fluid Amount of AF: normal. MVP 6.3 cm. BIOMETRY Main Biometry: BPD 64.7 mm 26w 1d Hadlock OFD 80.4 mm 24w 2d Nicolaides HC 233.1 mm 25w 2d Hadlock Cerebellum tr 29.5 mm 26w 2d Nicolaides AC 203.9 mm 25w 0d Hadlock Femur 44.5 mm 24w 5d Hadlock Humerus 42.7 mm 25w 4d Marci Weight Calculation: EFW 755 g 31% Truman EFW (lb,oz) 1 lb 11 oz EFW by Hadlock ([id number]) Head / Face / Neck Biometry: Trial Justice 3.5 mm Nasal bone 8.9 mm ANATOMY The following structures appear normal: Head / Neck Cranium. Head size. Head sha pe. Lateral ventricles. Midline falx. Cavum septi pellucidi. Cerebellum. Thalami. Face Profile. Heart / Thorax 4-chamber view. RVOT view . LVOT view. Abdomen Abdominal wall. Stomach: Stomach size and situs appear normal. Kidneys. Bladder: Bladder appears normal in size and shape. Genitals. Gender: male. MATERNAL STRUCTURES Cervix Not examined Right Ovary Not examined Left Ovary Not examined RECOMMENDATION We discussed the findings on today's [facility] rasound with the patient. Hx of 4 prior c/s including 1 classical c/s. Anterior placenta- not low lying. The patient has a hx of preeclampsia with severe features and delivered at 32 weeks previously. She is on a baby ASA. She is very worrie d about developing preE again. Suggested bringing up her concerns with you on Wednesday at her visit. Consider q 2 week visits for serial BP checks, etc. The patient had a echo with Peds C ards which was limited, but was otherwise normal. The aortic arch could not be seen. A echo is recommended after 24-48 hrs of life. A repeat ultrasound has been scheduled h ere in 3 weeks to reevaluate growth. Return to primary provider for continued care. Thank you for the opportunity to partici jack in the care of this patient. If you have questions regarding today's evaluation or if we can be of further service, please contact the [facility] Medicine [facility]. anomalies may be present but not detected IMPRESSION 1) Intrauterine at 26 0/7 week s gestational age in the Breech presentation. 2) The visualized anatomy appears normal. The ultrasound is limited due to maternal body habitus. 3) Growth parameters and estimated weight were consistent with an appropriate for gestation age pattern of growth. 4) The amniotic fluid volume appeared no rmal. Quique Cooper MD [facility] US ORDER[facility] documented in this encounter Visit Diagnoses Diagnosis History of poor growth Personal history of problems Hx of pre-eclampsia in prior , currently with other poor obstetric hist ory Obesity affecting in second tr aydin documented in this encounter Care Teams Live Source Operator Relationship Specialty Start Date End Date Lidya Beltran PCP - General harvest worker field crop 07/13/18 documented as of this encounter
--- OUTSIDE RECORDS SUMMARY | 2022-07-09 20:38 | XMS_ITS | Encounter Summary ---
:1990 Author Organization [place] Address [address] [place] [address]. [place] [address] Care Team Providers Name Role Phone Lidya Hanson Primary Care Provider Unavailable Tate Ibrahim ASSISTANT CHIEF ENGINEER Unavailable Encounter Details Date Type Department Care Team Description 11/02/2018 Orders Only [facility] Sue Her, Pre-op Formerly [facility] laboratory examination [address] [employer] (Primary Dx) [place], [place] [address] [facility] [id number] [facility] [address] [place] [address] Social History Tobacco Use Types Packs/Day Years Used Date Smoking Tobacco: Never Smokeless Tobacco: Never Alcohol Use Standard Drinks/Week Comments No 0 [...] Not on filedocumented as of this encounter Results Hemoglobin (11/08/2018 10:08 AM [facility]) athologist Signature Hemoglobin 12.6 11.7 - 15.7 11/08/2018 [facility] g/dL 10:11 AM [facility] Specimen Anatomical Collection Method Collection Time Receive d Time (Source) Location / / Volume Laterality Blood specimen 11/08/2018 10:08 9 (specimen) AM [facility] 10:09 AM [facility] Sue Her MD LAB - BLOOD ORDERABLES Performing Organization Address City/[facility]/ZIP Code Phon e Number [facility] [address] [place], [place] [address] [place] [address] [address] [place], [place] [address], [facility] [phone] ABO/Rh type and screen (11/08/2018 10:08 AM [facility] SCI[facility] TE[facility]) [facility] Method Time Signature Units Ordered 2 11/09/2018 [facility] 9:57 AM [facility] ABO O 11/08/2018 [facility] 10:53 AM [facility] RH(D) Pos [facility] Antibody Neg 11/08/2018 [facility] Screen 10:53 AM [facility] Test Valid [place] 11/08/2018 [facility] Only At [facility] 10:39 AM [facility] Specimen 11/11/2018 11/08/2018 [facility] Expires 10:39 AM [facility] Crossmatch Red Blood 11/09/2018 [facility] Cells 9:57 AM [facility] Specimen Anatomical Collection Method Collection Time Receive d Time (Source) Location / / Volume Laterality Blood specimen 11/08/2018 10:08 9 (specimen) AM [facility] 10:09 AM [facility] Sue Her MD LAB - BLOOD BANK TEST ORDER Performing Organization Address [facility]/ZIP [facility] [place]on [place] Number [facility] [address] [place], [place] [address] [facility] [address] [place], [place] [address], [facility] [phone] documented in this encounter Visit Diagnoses Diagnosis Pre-operative laboratory examination - P rimary Pre-procedural laboratory examination documented in this encounter Care Teams Line Lead Relationship Specialty Start Date End Date Lidya Hanson PCP - General loan review analyst 07/13/18 Tate Ibrahim LSW Lead Credit Associate Primary Care - CC 01/09/19 05/15/19 documented as of this encounter
--- OUTSIDE RECORDS SUMMARY | 2022-07-09 20:38 | XMS_ITS | Encounter Summary ---
:1990 Author Organization [place] Address 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 - Closed Specialty Diagnoses / Procedures Referred By Contact Refer red To Contact Diagnoses Suspected anomaly, antepartum, single or unspecified fetus Rh Maternal Med [address] [place] [address] Referral ID Status Reason Start Date Expiration Date Visits Requ ested Visits Authorized [id number] Closed 07/13/2018 07/13/2019 1 1 Encounter Details Date Type Department Care Team Description 08/05/2018 Office Visit [facility] Katie Patel DO [address] [place], [place] [id number] Suspected Maternal Quique Cooper MD [address] [place] [address] anomaly, antepartum, Medicine Center Kev Morrow GC MATERNAL MEDICINE [address] [place], [place] [address] single or [place] unspecified fetus [address] [place] [address] Social History Tobacco Use Types Packs/Day Years [...] documented as of this encounter Progress Notes Kev Morrow, - 08/05/2018 8:[address] [facility] Genetic Counseling Consult Patient: Barbra Chun Date of : 1990 Date of Service: 08/05/18 Barbra Chun was seen at the [facility] for genetic consultation as part of her appointment for comprehensive ultrasound. The indication for genetic counseling is marker for increased risk for Down syndrome identified on anatomy scan. Impression/Plan: 1. 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 Please see the ultrasound report for further details. Barbra returned to [facility] today for a follow up scan and genetic counseling. 2. Barbra had a cell-free DNA test in the interim time period, which was normal. History: /Parity: Age at Delivery: 28 year old LESLEY: 12/07/2018, by Ultrasound Gestational Age: 22w2d ??? No significant complications or exposures were reported in the current . ??? Barbra???s history is significant for 4 prior pregnancies, all delivered via , the most recent prematurely due to preeclampsia. Please see corresponding physician note from Barbra's first comprehensive ultrasound for Dr. Patel's recommendations regarding management of Barbra's current . Medical History: Barbra???s reported medical history is not expected to impact management or risks to fetaldevelopment. Family History: A three-generation pedigree was not obtained, but Barbra denies any family history of multiple miscarriages, stillbirths, defects, cognitive impairment, known genetic conditions, and consanguinity. Risk Assessment for Chromosome Conditions: We explained that the risk for chromosome abnormalities increases with maternal age. We discussed specific features of common chromosome abnormalities, including Down syndrome, trisomy 13, trisomy 18, and sex chromosome trisomies. ??? - At age 28 at midtrimester, the risk to have a baby with Down syndrome is 1 in 990. ??? - At age 28 at midtrimester, the risk to have a baby with any chromosome abnormality is 1 in 495. ??? - At age 28 at delivery, the risk to have a baby with Down syndrome is 1 in 1176. ??? - At age 28 at delivery, the risk to have a baby with any chromosome abnormality is 1 in 476. We discussed that markers identified on a level II ultrasound are findings that are used to adjust risk for chromosome abnormalities. We discussed the specific finding that was identified on her initial scan, hypoplastic nasal bone. This finding is a common variant in the general population and seen in as many as 1% of pregnancies. It is not expected to cause any complications or concerns on its own,but we discussed that when it is identified, it increases the risk for a to be affected with Down syndrome. We discussed that the relative risk increase for an hypoplastic nasal bone is 20.1.Based on a current age related risk of 1/990, the adjusted risk for Barbra???s to be affected with Down syndrome is 1/49, or slightly over 2%. We discussed that conversely there is a 98% chance that the does not have Down syndrome. ??? Barbra had maternal serum screening earlier in . Non-invasive Testing (NIPT) ??? Maternal plasma cell-free DNA testing ??? Screens for trisomy 21, trisomy 13, trisomy 18, and sex chromosome aneuploidy ??? First trimester ultrasound with nuchal translucency and nasal bone assessment was not performed in this , to our knowledge. ??? Barbra had a [id number] test earlier in ; we reviewed the results today, which are normal for chromosome 13, chromosome 18 and chromosome 21 (no aneuploidy detected) ??? Given the accuracy of this test, these results greatly decrease the chance for certain chromosome abnormalities ??? We discussed the limitations of normal NIPT results ?? MSAFP (after 15 weeks for open neural tube defect screening) results were not available for our review today. Given the low risk NIPT result, the risks for Brabra's to be affected with Down syndrome are greatly reduced, and considered low, but not zero. Testing Options: We discussed the following options: Non-invasive Testing (NIPT) ?? Maternal plasma cell-free DNA testing; first trimester ultrasound with nuchal translucency and nasal bone assessment is recommended, when appropriate ?? Screens for trisomy 21, trisomy 13, trisomy 18, and sex chromosome aneuploidy ?? Cannot screen for open neural tube defects; maternal serum AFP after 15 weeks is recommended Genetic Amniocentesis ?? Invasive procedure typically performed in the second trimester by which amniotic fluid is obtained for the purpose of chromosome analysis and/or other genetic analysis ?? Diagnostic results; >99% sensitivity for chromosome abnormalities ?? AFAFP measurement tests for open neural tube defects Comprehensive (Level II) ultrasound: Detailed ultrasound performed between 18- 22 weeks gestation toscreen for major defects and markers for aneuploidy. We reviewed the benefits and limitations of this testing. Screening tests provide a risk assessment specific to the for certain chromosome abnormalities, but cannot definitively diagnose or exclude a chromosome abnormality. Follow-up genetic counseling and consideration of diagnostic testing is recommended with any abnormal screening result. Diagnostic tests carry inherent risks- including risk of miscarriage- that require careful consideration. These tests can detect chromosome abnormalities with greater than 99% certainty. Results can be compromised by maternal cell contamination or mosaicism, and are limited by the resolution of c ytogenetic G-banding technology. There is no screening nor diagnostic test that can detect all formsof defects or mental disability. It was a pleasure to be involved with Barbra???s care. [id number] time of the meeting was 20 minutes. Kev Morrow MS, [facility] Licensed Genetic Counselor Pager: [phone] NG MACHINE OPERATOR SEMIAUTOMATIC documented in this encounter Plan of Treatment Not on filedocumented as of this encounter Visit Diagnoses Diagnosis Suspected anomaly, antepartum, sin gle or unspecified fetus documented in this encounter Care Teams Senior Accountant Analyst Relationship Specialty Start Date End Date Lidya Hanson PCP - General court security officer 07/13/18 documented as of this encounter
--- OUTSIDE RECORDS SUMMARY | 2022-07-09 20:38 | XMS_ITS | Encounter Summary ---
:1990 Author Organization [place] Address [address] [place] [address] Care Team Providers Name Role Phone Lidya Beltran Primary Care Provider Unavailable Reason for Referral Diagnostic Imaging Ultrasound - Closed Specialty Diagnoses / Procedures Referred By Contact Refer red To Contact Diagnoses BMI 45.0-49.9, adult (H) Ur Maternal Med Procedures [facility] Comprehensive Single F/U [address] [place], [place] [address] Referral ID Status Reason Start Date Expiration Date Visits Requ ested Visits Authorized [id number] Closed 08/31/2018 08/31/2019 1 1 ESS PLANNER Reason for Visit Diagnostic Imaging Ultrasound - Closed Specialty Diagnoses / Procedures Referred By Contact Refer red To Contact Diagnoses BMI 45.0-49.9, adult (H) Ur Maternal Med Procedures [facility] Comprehensive Single F/U [address] [place], [place] [address] Referral ID Status Reason Start Date Expiration Date Visits Requ ested Visits Authorized [id number] Closed 08/31/2018 08/31/2019 1 1 Encounter Details Date Type Department Care Team Description 09/21/2018 Hospital Encounter [facility] Nano Michel DO [address] [address] BMI 45.0-49.9, Maternal Luis F Foley MD [address] [place] [address] adult (H) [facility] [address] [place] [address] Social History Tobacco Use Types [...] Procedure Name Priority Date/Time Associated Comments Diagnosis [facility] COMPREHENSIVE Routine 09/21/2018 10:59 BMI 45.0-49.9, R esults for this SINGLE F/U AM PROCESS PLANNER adult (H) procedure are i n the results section. documented in this encounter Results [facility] Comprehensive Single F/U (09/21/2018 10:59 AM PROCESS PLANNER) Anatomical Region Laterality Modality Ultrasound Specimen (Source) Anatomical Collection Method Collection Time Re ceived Time Location / / Volume Laterality 09/21/2018 10:32 AM PROCESS PLANNER Impressions 09/21/2018 1:52 PM PROCESS PLANNER IMPRESSION 1) Sorensen intrauterine at 2 9 weeks 0 days gestational age. 2) None of the anomalies commonly detect ed by ultrasound were evident in the limited anatomic survey as described above, anatomy limited by gestational age and lie. 3) Growth parameters and estimated weight were consistent with established dates. 4) The amniotic fluid volume appeared no rmal. 5) Normal activity for gestational age. 6) Anterior placenta, NOT low lying or p revia. No findings to suggest high risk of placenta accreta spectrum at this time. Narrative 09/21/2018 1:52 PM PROCESS PLANNER Comp Follow Up Pat. Name: NORAH RODRIGUEZ Study Date: 09/21/2018 10:32am Pat. NO: [id number] Referring ??MD: CHASIDY BELTRAN Site: [facility] [employer] Consultant: Hanna Smith RDMS : 1990 Age: 28 INDICATION History of x 4 including one c lassical C/S, BMI >40, declines aneuploidy screening, Suboptimal heart views on prior ultrasounds (normal peds cardiology echo today) METHOD Transabdominal ultrasound examination. V iew: Sufficient Sorensen . Number of fetuses: 1 DATING ? Date ?Details ?Gest. age ?LESLEY Prior assessment ? GA: 6 w + 1 d ?29 w + 0 d ? 12/07/2018 U/S ? 09/21/2018 ? based upon AC, BPD, Femur, HC ?28 w + 2 d ? 12/12/2018 Assigned dating ?Dating performed on 09/21/2018, based on the prior assessment (on 04/14/2018) ? 29 w + 0 d ? 12/07/2018 GENERAL EVALUATION Cardiac activity present. FHR 128 bpm. movements present. Presentation cephalic. Placenta anterior. Umbilical cord 3 vessel cord. Amniotic fluid MVP 7.3 cm. BIOMETRY Main Biometry: BPD ?72.6 ?mm ? 29w 1d ?Hadlock OFD ?93.7 ?mm ? 27w 5d ?Nicolaides HC ?267.0 ?mm ?29w 1d ?Hadlock Cerebellum tr ?34.1 ? mm ?29w 4d ?Nicolaides AC ?233.2 ?mm ?27w 5d ?Hadlock Femur ?50.7 ? mm ?27w 1d ?Hadlock Humerus ?48.3 ?mm ? 28w 3d ?Marci Weight Calculation: EFW ? 1,118 ? g ? 31% ?Truman EFW (lb,oz) ? 2 lb 7 ?oz EFW by ?Hadlock ([id number]) ANATOMY The following structures appear normal: Head / Neck ? Cranium. Head size. Head shape. Lateral ventricles. Midline falx. Cavum septi pellucidi. Cisterna magna. Thalami. Face ? Profile. Heart / Thorax ?RVOT view. LVOT view. Aortic arch view. Ductal arch view. Abdomen ? Abdominal wall. Stomach: Stomach size and situs appear normal. Kidneys. Bladder: Bladder appears normal in size and shape. Genitals. The following structures were documented previously: Heart / Thorax ?4-chamber view. Spine ?Cervical spine. Thoracic spine. Lumbar spine. Sacral spine. Gender: male. MATERNAL STRUCTURES Cervix ?Not examined Right Ovary ?Not examined Left Ovary ?Not examined RECOMMENDATION Findings reviewed with Norah today. She has had four prior C/S, including a classical C/S, and it has been recommended that she deliver by repeat C/S between 61l2k-91e9a previously. If delivered at < 37w0d, she should have late steroid course given in the 2-3 days prior to her C/S. She indicates that she was told that we could do a hysterectomy at the time of h er C/S since she has been told that she should not get again and a tubal ligation doesn't always work - states this is what her friend had done. Explained that we do not recommend a hysterectomy for permanent contraception given the increased risk of performing this procedure at the time of C/S. I have recommended t hat she sign tubal consent forms with her primary OB as I do not recommend further pregnancies since this will be her 5th C/S. She states she is interested in permanen t contraception. Did review risk of accreta due to many C/S, including one classical, and now anterior placenta. We will reassess placenta appearance at her follow up MFM US in 3-4 weeks. Will contact office of primary OB in [place] today to determine if they are planning transfer of care to a [place] provider, as the patient stat es that she believes that she has been told to deliver at [facility] due to need for late /early term delivery by C/S and due to recommendation by pediatric cardi ology that she have a echo in first 48 hours of life (unable to complete cardiac assessment with MFM or pediatric cardiology. Procedure Note Luis F Foley MD - 09/21/2018Form atting of this note might be different from the original. Comp Follow Up Pat. Name:GARY AMMY HIMANSHUSarah Thorpe te:09/21/2018 10:32am Pat. NO: [id number] MD:LIDYA BELTRAN [facility]Rula Maddox :1990Age:28 INDICATION History of x 4 including one c lassical C/S, BMI >40, declines aneuploidy screening, Suboptimal heart views on prior ultrasounds (normal peds cardiology echo today) METHOD Transabdominal ultrasound examination. V iew: Sufficient Sorensen . Number of fetuses: 1 DATING Date Details Gest. age LESLEY Prior assessment 04/14/2018 GA: 6 w + 1 d 29 w + 0 d 12/07/2018 U/S 09/21/2018 based upon AC, BPD, Femur , HC 28 w + 2 d 12/12/2018 Assigned dating Dating performed on 08/28, based on the prior assessment (on 04/14/2018) 29 w + 0 d 12/07/2018 GENERAL EVALUATION Cardiac activity present. FHR 128 bpm. movements present. Presentation cephalic. Placenta anterior. Umbilical cord 3 vessel cord. Amniotic fluid MVP 7.3 cm. BIOMETRY Main Biometry: BPD 72.6 mm 29w 1d Hadlock OFD 93.7 mm 27w 5d Nicolaides HC 267.0 mm 29w 1d Hadlock Cerebellum tr 34.1 mm 29w 4d Nicolaides AC 233.2 mm 27w 5d Hadlock Femur 50.7 mm 27w 1d Hadlock Humerus 48.3 mm 28w 3d Marci Weight Calculation: EFW 1,118 g 31% Truman EFW (lb,oz) 2 lb 7 oz EFW by Hadlock ([id number]) ANATOMY The following structures appear normal: Head / Neck Cranium. Head size. Head sha pe. Lateral ventricles. Midline falx. Cavum septi pellucidi. Cisterna magna. Thalami. Face Profile. Heart / Thorax RVOT view. LVOT view. Aor tic arch view. Ductal arch view. Abdomen Abdominal wall. Stomach: Stomach size and situs appear normal. Kidneys. Bladder: Bladder appears normal in size and shape. Genitals. The following structures were documented previously: Heart / Thorax 4-chamber view. Spine Cervical spine. Thoracic spine. Gillian mbar spine. Sacral spine. Gender: male. MATERNAL STRUCTURES Cervix Not examined Right Ovary Not examined Left Ovary Not examined RECOMMENDATION Findings reviewed with Norah today. She has had four prior C/S, including a classical C/S, and it has been recommended that she deliver by repeat C/S between 25s4m-59p4m previously. If delivered at < 37w0d, she should have late steroid course given in the 2-3 days prior to her C/S. She indicates that she was told that we could do a hysterectomy at the time of h er C/S since she has been told that she should not get again and a tubal ligation doesn't always work - states this is what her friend had done. Explained that we do not recommend a hysterectomy for permanent contraception given the increased risk of performing this procedure at the time of C/S. I have recommended t hat she sign tubal consent forms with her primary OB as I do not recommend further pregnancies since this will be her 5th C/S. She states she is interested in permanen t contraception. Did review risk of accreta due to many C/S, including one classical, and now anterior placenta. We will reassess placenta appearance at her follow up MFM US in 3-4 weeks. Will contact office of primary OB in [place] today to determine if they are planning transfer of care to a [place] provider, as the patient stat es that she believes that she has been told to deliver at [facility] due to need for late /early term delivery by C/S and due to recommendation by pediatric cardi ology that she have a echo in first 48 hours of life (unable to complete cardiac assessment with M or pediatric cardiology. IMPRESSION 1) Sorensen intrauterine at 2 9 weeks 0 days gestational age. 2) None of the anomalies commonly detect ed by ultrasound were evident in the limited anatomic survey as described above, anatomy limited by gestational age and lie. 3) Growth parameters and estimated weight were consistent with established dates. 4) The amniotic fluid volume appeared no rmal. 5) Normal activity for gestational age. 6) Anterior placenta, NOT low lying or p revia. No findings to suggest high risk of placenta accreta spectrum at this time. Steffi Zuniga DO IMG M US ORDERABLES documented in this encounter Visit Diagnoses Diagnosis BMI 45.0-49.9, adult (H) Body Mass Index 45.0-49.9, adult documented in this encounter Care Teams Plastic Outfitter Relationship Specialty Start Date End Date Lidya Beltran PCP - General sizing sprayer 07/13/18 documented as of this encounter
--- OUTSIDE RECORDS SUMMARY | 2022-07-09 20:38 | XMS_ITS | Encounter Summary ---
:1990 Author Organization [place] Address [address] [place] [address]. [place] [address] Care Team Providers Name Role Phone Lidya Hanson Primary Care Provider Unavailable Encounter Details Date Type Department Care Team Description 11/08/2018 Travel Social History Tobacco Use Types Packs/Day Years [...] filedocumented as of this encounter Visit Diagnoses Not on filedocumented in this encounter Care Teams Wood Machine Carver Relationship Specialty Start Date End Date Lidya Hanson PCP - General chemistry technical officer 07/13/18 documented as of this encounter
--- OUTSIDE RECORDS SUMMARY | 2022-07-09 20:38 | XMS_ITS | Encounter Summary ---
:1990 Author Organization [place] Address Formerly [facility] [place] [address] Care Team Providers Name Role Phone Lidya Hanson Primary Care Provider Unavailable Reason for Visit Auth/Cert Specialty Diagnoses / Procedures Referred By Contact Refer red To Contact plant packer Diagnoses Previous, desires PT WILL NOT BE 39 WEEKS WILL BE 36 WKS DUE TO PREVIOUS CLASSICAL Rh Labor And Delivery Procedures SECTION repeat, bilateral salpingectomy [address] [place], [place] [address] Phone: Fax: Referral ID Status Reason Start Date Expiration Date Visits Requ ested Visits Authorized [id number] 1 1 Encounter Details Date Type Department Care Team Description 11/09/2018 Anesthesia Event [facility] Deandre Perez DO [facility] ANESTHESIA [address] [place] [address] [facility] Perla Melo APRN CLOTH FINISHER [facility] ANESTHESIA [address] [place] [address] [address] [place] [address] Anesthesia Record Procedure Summary Procedure Name Responsible Anesthesia Start Anesthesia Stop Anesthesiologist Time Time SECTION Florian Perez DO 11/09/18 1206 11/09/18 1 306 repeat, bilateral salpingectomy (Abdomen) Events Date Time Event Comment 11/09/2018 1114 1206 An Start 1207 MD Present 1210 MD Present 1216 An Start Data 1217 MD Present 1225 MD Present 1232 MD Present 1233 Uterine Incision 1234 Baby Delivered 1237 Placenta Delivered 1240 MD Present 1254 an stop data 1304 Present 1306 An Stop Electronically s igned by Perla Melo on November 09 1:06 PM Name Total bupivacaine spinal 0.75% in dextrose 8.25% 12 mg fentaNYL (SUBLIMAZE) injection 15 mcg morphine PF 1mg/mL 0.3 mg ondansetron 2mg/mL 4 mg phenylephrine 10mg/mL 500 mcg oxytocin 30 units in 500 mL 0.9% NaCl infusion 200 mL ceFAZolin (ANCEF) intermittent infusion 2 g in 100 mL dextrose PRE-MIX 2 g lactated ringers infusion 1,300 mL Agents Name NO HELIOX O2 N2O Air Exp Sevoflurane Exp Isoflurane Exp Desflurane Exp N2O Ins Sevoflurane Ins Isoflurane Ins Desflurane O2 Auxiliary Blood No blood administrations on file. Lines, Drains, and Airways Type Details Placement Removal Incision/Surgical Site 11/09/18; 1313; 11/09/18 1313 by Bilateral; Abdomen; Maria Elena Landers, CHRISTIANNE insorb, island dressing Peripheral IV 11/09/18; 1025; 18 G; 11/09/18 1025 by 11/10/18 2101 by Left; Hand; Jasmine Gibson RN Glocke, Ra chel R, Chlorhexidine; None; RN Tolerated well Urethral Catheter 11/09/18; 1225; No; 11/09/18 1225 by 11/10/18 1300 by Epidural/Intrathecal Maria Elena Landers, Zuleyka Holland, Catheter; 16 fr RN documented in this encounter Social History Tobacco [...] on file documented as of this encounter OR Notes Anesthesia Postprocedure Evaluation - Florian Perez DO - 11/09/2018 1:55 PM CST Patient: Barbra Chun Procedure(s): SECTION repeat, bilateral salpingectomy Diagnosis:Previous, desires PT WILL NOT BE 39 WEEKS WILL BE 36 WKS DUE TO PREVIOUS CLASSICAL Diagnosis Additional Information: 1. 4 prior c/s, one classical 2. Desired permanent sterilization 3. Inadequate cardiac visualization on outside echo of fetus. 4. Desired sterilization Post-operative diagnosis Same 4. Tissue dystocia 5. adhesions Procedure: Procedure(s): 1, . Repeat low transverse c/s 2. Lysis of adhesions 3. Vacuum assisted vaginal delivery 4. Bilateral salpingectomies 1. 4 prior c/s, one classical 2. Desired permanent sterilization 3. Inadequate cardiac visualization on outside echo of fetus, . 4. Desired sterilization Post-operative diagnosis Same 4. Tissue dystocia 5. adhesions Anesthesia Type: Spinal Note: Anesthesia Post Evaluation Patient location during evaluation: PACU Patient participation: Able to fully participate in evaluation Level of consciousness: awake Pain management: adequate Airway patency: patent Cardiovascular status: acceptable Respiratory status: acceptable Hydration status: acceptable PONV: controlled Anesthetic complications: None Comments: .Anticipate full return of neurologic function Last vitals: Vitals: 11/09/18 1313 11/09/18 1316 11/09/18 1321 BP: 115/56 110/54 Pulse: Resp: Temp: SpO2: 97% Electronically Signed By: Florian Perez DO November 09, 2018 1:55 PM HAUL CHAIN FEEDER Anesthesia Procedure Notes - Florian Perez DO - 11/09/2018 12:40 PM LOG HAUL CHAIN FEEDER Associated Order(s): Spinal Block Peripheral nerve/Neuraxial procedure note : intrathecal Pre-Procedure Performed by Florian Perez DO Location: OR Pre-Anesthestic Checklist: patient identified, IV checked, risks and benefits discussed, informed consent, monitors and equipment checked, pre-op evaluation and at physician/surgeon's request Timeout Correct Patient: Yes Correct Procedure: Yes Correct Site: Yes Correct Laterality: N/A Correct Position: Yes Site Marked: N/A . Procedure Documentation . Procedure: Intrathecal. Insertion Site:L3-4 (midline approach) Patient Prep;mask, sterile gloves, povidone-iodine 7.5% surgical scrub. . Needle: Sprotte Spinal Needle (gauge): 24 Spinal/LP Needle Length (inches): 3.5 Introducer used . Assessment/Narrative Paresthesias: No. . . clear CSF fluid removed . Comments: .Bupivicaine 12mg + Fentanyl 15mcg + Morphine 0.3mg Rula Perez HAUL CHAIN FEEDER Anesthesia Preprocedure Evaluation - Florian Perez DO - 11/09/2018 11:13 AM CST Anesthesia Pre-Procedure Evaluation Patient: Barbra Chun : 1990 Preoperative Diagnosis: Previous, desires PT WILL NOT BE 39 WEEKS WILL BE 36 WKS DUE TO PREVIOUS CLASSICAL Procedure(s): SECTION repeat, bilateral salpingectomy Past Medical History: Diagnosis Date ??? Anemia after c/s ??? Depressive disorder on medication ??? Gastroesophageal reflux disease ??? Hypertension history of preeclampsis with last baby Past Surgical History: Procedure Laterality Date ??? CHOLECYSTECTOMY ??? ENT SURGERY tonsillectomy ??? 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 ROS/MED HX ENT/Pulmonary: - neg pulmonary ROS Neurologic: - neg neurologic ROS Cardiovascular: - neg cardiovascular ROS METS/Exercise Tolerance: Hematologic: - neg hematologic ROS Musculoskeletal: - neg musculoskeletal ROS GI/Hepatic: (+) GERD Renal/Genitourinary: - ROS Renal section negative Endo: Comment: .Body mass index is 48.47 kg/m??. - neg endo ROS Psychiatric: - neg psychiatric ROS Infectious Disease: - neg infectious disease ROS Malignancy: Other: Comment: .Lab Test 11/08/18 1008 HGB 12.6 No lab results found. Physical Exam Normal systems: cardiovascular and pulmonary Airway Mallampati: III Dental Cardiovascular Rhythm and rate: regular and normal Pulmonary breath sounds clear to auscultation Lab Results Component Value Date HGB 12.6 11/08/2018 Preop Vitals BP Readings from Last 3 Encounters: 11/09/18 118/72 Pulse Readings from Last 3 Encounters: 11/09/18 88 Resp Readings from Last 3 Encounters: 11/09/18 18 SpO2 Readings from Last 3 Encounters: No data found for SpO2 Temp Readings from Last 1 Encounters: 11/09/18 98.6 ??F (37 ??C) (Oral) Ht Readings from Last 1 Encounters: 11/09/18 1.499 m (4' 11) Wt Readings from Last 1 Encounters: 11/09/18 108.9 kg (240 lb) Estimated body mass index is 48.47 kg/m?? as calculated from the following: Height as of this encounter: 1.499 m (4' 11). Weight as of this encounter: 108.9 kg (240 lb). Anesthesia Plan History & Physical Review ASA Status: 3 . Plan for Spinal PONV prophylaxis: Ondansetron (or other 5HT-3) Postoperative Care Postoperative pain management: IV analgesics, Oral pain medications and Multi- modal analgesia. Consents Florian Perez DO . HAUL CHAIN FEEDER documented in this encounter Miscellaneous Notes Anesthesia Care Transfer Note - Perla Melo APRN CRNA - 11/09/2018 1:05 PM CST Patient: Barbra Chun Procedure(s): SECTION repeat, bilateral salpingectomy Diagnosis: Previous, desires PT WILL NOT BE 39 WEEKS WILL BE 36 WKS DUE TO PREVIOUS CLASSICAL Diagnosis Additional Information: No value filed. Anesthesia Type: Spinal Note: Airway :Room Air Patient transferred to:Phase II Handoff Report: Identifed the Patient, Identified the Reponsible Provider, Reviewed the pertinent medical history, Discussed the surgical course, Reviewed Intra-OP anesthesia mangement and issues during anesthesia, Set expectations for post-procedure period and Allowed opportunity for questions and acknowledgement of understanding Vitals: (Last set prior to Anesthesia Care Transfer) RUSSELL VITALKrystina 11/09/2018 1224 - 11/09/2018 1305 11/09/2018 Pulse: 86 SpO2: 97 % Electronically Signed By: Perla Melo APRN CRNA November 09, 2018 1:05 PM HAUL CHAIN FEEDER documented in this encounter Plan of Treatment Not on filedocumented as of this encounter Procedures Procedure Name Priority Date/Time Associated Diagnosis Comme nts ANE SPINAL BLOCK FORM Routine 11/09/2018 12:40 PM LOG HAUL CHAIN FEEDER Procedure Note - Salvador Perez DO - 11/09/2018 12:40 PM CSTThis note is in progress. Formatting of this note migh t be different from the original. Peripheral nerve/Neuraxial p rocedure note : intrathecal Pre-Procedure Performed by Florian Perez DO Location: OR Pre-Anesthestic Checklist: p atient identified, IV checked, risks and benefits discussed, informed consent, monitors and equipment checked, pre-op evaluation and at physician/surgeon's request Timeout Correct Patient: Yes Correct Procedure: Yes Correct Site: Yes Correct Laterality: N/A Correct Position: Yes Site Marked: N/A . Procedure Documentation . Procedure: Intrathecal. Inse rtion Site:L3-4 (midline approach) Patient Prep;mask, sterile g loves, povidone-iodine 7.5% surgical scrub. . Needle: Sprotte Spinal Needle (gauge): 24 Spinal/LP Needle Length (inches): 3.5 Introducer used . Assessment/Narrative Paresthesias: No. . . clear CSF fluid removed . Comments: .Bupivicaine 12mg + Fentanyl 15mcg + Morphine 0.3mg Rula Perez documented in this encounter Visit Diagnoses Not on filedocumented in this encounter Administered Medications Inactive Administered Medications - up to 3 most recent administrations Medication Order MAR Action Action Date Dose Rate Site bupivacaine 0.75% in dextrose Given 11/09/2018 12:13 PM LOG HAUL CHAIN FEEDER 12 m g 8.25% (intrathecal) (SENSORCAINE) 0.75-8.25 % injection PRN, Starting on Wed11/09/18 at 1213, Anesthesia Intra-op ceFAZolin (ANCEF) intermittent infusion 2 g in Given 0 11/09/2018 12:06 PM LOG HAUL CHAIN FEEDER 2 g 100 mL dextrose PRE-MIX Routine, 2 g, Intravenous, PRE-OP/PRE-PROCEDURE, Starting on Wed11/09/18 at 0950, For 1 dose, Give no sooner than 30 minutes prior to incision. If patient weight is greater than or equal to 120 kg increase dose to 3 g., Indications: Perioperative Pharmacoprophylaxis, Pre-procedure fentaNYL (PF) (SUBLIMAZE) injection Given 11/09/2018 12:13 PM LOG HAUL CHAIN FEEDER 15 mcg Intrathecal, PRN, Administer over 3-5 Minutes, Starting on Wed11/09/18 at 1213, Anesthesia Intra-op lactated ringers infusion New Bag 11/09/2018 12:40 PM LOG HAUL CHAIN FEEDER at 125 mL/hr, Intravenous, CONTINUOUS, Pre-procedure, Starting on Wed11/09/18 at 1000, Until Wed11/09/18 at 1308 New Bag 11/09/2018 12:06 PM LOG HAUL CHAIN FEEDER New Bag 11/09/2018 11:28 AM LOG HAUL CHAIN FEEDER 125 mL/hr morphine (PF) (ASTRAMORPH /DURAMORPH) Given 11/09/2018 12:13 PM LOG HAUL CHAIN FEEDER 0.3 mg injection Intrathecal, PRN, Administer over 4-5 Minutes, Starting on Wed11/09/18 at 1213, Anesthesia Intra-op ondansetron (ZOFRAN) injection Given 11/09/2018 12:22 PM LOG HAUL CHAIN FEEDER 4 mg PRN, Administer over 2-5 Minutes, Starting on Wed11/09/18 at 1222, Anesthesia Intra-op oxytocin (PITOCIN) 30 units in 500 mL 0.9% Given 11/09 12:57 PM LOG HAUL CHAIN FEEDER 199 mLs NaCl infusion Intravenous, PRN, Starting on Wed11/09/18 at 1235, Anesthesia Intra-op Given 11/09/2018 12:35 PM LOG HAUL CHAIN FEEDER 1 mL phenylephrine (NADEEN-SYNEPHRINE) injection Given 11/09/2018 12:36 PM LOG HAUL CHAIN FEEDER 100 mcg PRN, Starting on Wed11/09/18 at 1217, Anesthesia Intra-op Given 11/09/2018 12:25 PM LOG HAUL CHAIN FEEDER 100 mcg Given 11/09/2018 12:20 PM LOG HAUL CHAIN FEEDER 150 mcg documented in this encounter Care Teams Marketing Copywriter Relationship Specialty Start Date End Date Lidya Hanson PCP - General plant packer 07/13/18 documented as of this encounter
--- OUTSIDE RECORDS SUMMARY | 2022-07-09 20:38 | XMS_ITS | Encounter Summary ---
:1990 Author Organization [place] Address [address] [place] [address]. [place] [address] Care Team Providers Name Role Phone Lidya Hanson Primary Care Provider Unavailable Reason for Visit Reason Comments Ultrasound Encounter Details Date Type Department Care Team Description 08/31/2018 Office Visit [facility] Sariah Montez Enc ounter for [facility] MBBS screening for Specialty Clinic [address] [place] [address] congenital cardiac [address] [place] [address] [id number] abnormalities ([facility] [address] [place] [address] Dx) [place] [id number] [place] [address] [place] [address] Social History Tobacco Use Types [...] documented as of this encounter Progress Notes Hayley Bragg MD - 08/31/2018 2:11 PM CST Cardiology Consult Date of Visit: 08/31/2018 Gestational Age 26 weeks Due Date: 12/07/2018 Delivery: Dear Dr. Coopre I had the opportunity to meet with Barbra and her partner today for a Cardiology Consult and Echocardiography. Echo demonstrated Likely normal echocardiogram. The study quality is poor. Difficult study due to position and poor imaging windows. heart rate is regular at 147 bpm. The aorticarch is not visualized. No hydrops. I have reviewed the Echo findings. The parents had appropriate questions. I did my best to answer their questions. Plan: Post- echocardiogram should be performed within 24-48 hours of life. Thank you for allowing me to participate in Barbra's care. Feel free to contact me with questions. I spend 10 minutes counseling the patient about her echocardiogram findings. All of this time was face to face. Dr Hayley Bragg Long Term [facility] Pharmacist Director, Cardiology [facility] T ROCK TAPER documented in this encounter Plan of Treatment Not on filedocumented as of this encounter Visit Diagnoses Diagnosis Encounter for screening for congen ital cardiac abnormalities - Primary documented in this encounter Care Teams Carton Inspector Relationship Specialty Start Date End Date Lidya Hanson PCP - General scale balancer 07/13/18 documented as of this encounter
--- OUTSIDE RECORDS SUMMARY | 2022-07-09 20:38 | XMS_ITS | Encounter Summary ---
:1990 Author Organization [place] Address [address] [place] [address] Care Team Providers Name Role Phone Lidya Beltran Primary Care Provider Unavailable Reason for Referral Diagnostic Imaging Ultrasound - Closed Specialty Diagnoses / Procedures Referred By Contact Refer red To Contact Diagnoses Hx of pre-eclampsia in prior , currently BMI 45.0-49.9, adult (H) History of classical section Luis F Foley MD Procedures [facility] Comprehensive Single F/U [address] [facility] [address] [place], [place] [address] Referral ID Status Reason Start Date Expiration Date Visits Requ ested Visits Authorized [id number] Closed 09/21/2018 09/21/2019 1 1 OR'S AIDE Reason for Visit Diagnostic Imaging Ultrasound - Closed Specialty Diagnoses / Procedures Referred By Contact Refer red To Contact Diagnoses Hx of pre-eclampsia in prior , currently BMI 45.0-49.9, adult (H) History of classical section Luis F Foley MD Procedures [facility] Comprehensive Single F/U [address] [place], [place] [address] Referral ID Status Reason Start Date Expiration Date Visits Requ ested Visits Authorized [id number] Closed 09/21/2018 09/21/2019 1 1 Encounter Details Date Type Department Care Team Description 10/19/2018 Hospital Encounter [facility] Mcpherson MD [address] [place], [place] [address] Hx of pre-eclampsia in prior , currently ; Maternal Ktaie Patel DO [address] [place] [address] BMI 45.0-49.9, adult (H); Medicine [facility] History of c lassical section [place] [address] [facility] [address] [place] [address] Social History Tobacco Use Types [...] on file documented as of this encounter Medications at Time of Discharge [...] every 3 hours as needed for pain aspirin 81 MG EC tablet Take 81 mg by mouth 0 11/12/2018 daily omeprazole 20 MG tablet Take 20 mg by mouth 0 11/12/2018 daily ondansetron (ZOFRAN-ODT) Take 8 mg by mouth 0 11/12/2018 8 MG ODT tab every 8 hours as needed for nausea documented as of this encounter Plan of Treatment Not on filedocumented as of this encounter Procedures Procedure Name Priority Date/Time Associated Comments Diagnosis [facility] COMPREHENSIVE Routine 10/19/2018 1:51 PM Hx of pre-ecla mpsia Results for this SINGLE F/U TAILOR'S AIDE in prior , procedur e are in currently pregna nt the results BMI 45.0-49.9, section. adult (H) History of classical section documented in this encounter Results [facility] US Comprehensive Single F/U (10/19/2018 1:51 PM TAILOR'S AIDE) Anatomical Region Laterality Modality Ultrasound Specimen (Source) Anatomical Collection Method Collection Time Re ceived Time Location / / Volume Laterality 10/19/2018 1:22 PM TAILOR'S AIDE Impressions 10/19/2018 1:56 PM TAILOR'S AIDE IMPRESSION 1) Intrauterine at 33+0 weeks gestational age. 2) None of the anomalies commonly detect ed by ultrasound were evident in the limited anatomic survey described above. 3) Growth parameters and estimated weight were consistent with an appropriate for gestation age pattern of growth. 4) The amniotic fluid volume appeared no rmal. Narrative 10/19/2018 1:56 PM TAILOR'S AIDE Comp Follow Up Pat. Name: NORAH RODRIGUEZ Study Date: 10/19/2018 1:22pm Pat. NO: [id number] Referring ??: CHASIDY BELTRAN Site: [facility] Electronic Field Service Engineer: Hanna Smith RDMS : 1990 Age: 28 INDICATION History of x 4 including one c lassical C/S, BMI >40, declines aneuploidy screening. METHOD Transabdominal ultrasound examination. V iew: Sufficient Sorensen . Number of fetuses: 1 DATING ? Date ?Details ?Gest. age ?LESLEY Prior assessment ? 7/ ? GA: 6 w + 1 d ?33 w + 0 d ? 12/07/2018 U/S ? 10/19/2018 ? based upon AC, BPD, Femur, HC ? 32 w + 3 d ? 12/11/2018 Assigned dating ?Dating performed on 10/19/2018, based on the prior assessment (on 04/14/2018) ? 33 w + 0 d ? 12/07/2018 GENERAL EVALUATION Cardiac activity present. FHR 143 bpm. movements present. Presentation cephalic. Placenta anterior. Umbilical cord 3 vessel cord. Amniotic fluid MVP 5.2 cm. BIOMETRY Main Biometry: BPD ?81.3 ?mm ? 32w 5d ?Hadlock OFD ?110.3 ?mm ?33w 1d ?Nicolaides HC ?306.7 ?mm ?34w 1d ?Hadlock Cerebellum tr ?41.7 ? mm ?35w 5d ?Nicolaides AC ?277.2 ?mm ?31w 5d ?Hadlock Femur ?59.4 ? mm ?31w 0d ?Hadlock Humerus ?52.3 ?mm ? 30w 3d ?Marci Weight Calculation: EFW ? 1,848 ?g ? 27% ? Truman EFW (lb,oz) ? 4 lb 1 ?oz EFW by ?Hadlock ([id number]) ANATOMY The following structures appear normal: Head [...] structures were documented previously: Heart / Thorax ?Aortic arch view. Ductal arch view. Spine ?Cervical spine. Thoracic spine. Lumbar spine. Sacral spine. Gender: male. MATERNAL STRUCTURES Cervix ?Not examined Right Ovary ?Not examined Left Ovary ?Not examined RECOMMENDATION We discussed the findings on today's ult rasound with the patient. Plan is for delivery on 11/09 g iven prior classical delivery. We discussed that the placenta does not show any overt signs concerning for placenta accreta at this time, however a small focal accreta carito ot be ruled out with ultrasound. Further ultrasound studies as clinically indicated.. Return to primary provider for continued care.. Thank-you for the opportunity to partici jack in the care of this patient. If you have questions regarding today's evaluation or if we can be of further service, please contact the [facility]. anomalies may be present but not detected Procedure Note Katie Patel, - 10/19/2018Format ting of this note might be different from the original. Comp Follow Up Pat. Name:Nirav RODRIGUEZ te:10/19/2018 1:22pm Pat. NO: [id number] MD:LIDYA BELTRAN Site:Marniegrapher:Rula Maddox :1990Age:28 INDICATION History of x 4 including one c lassical C/S, BMI >40, declines aneuploidy screening. METHOD Transabdominal ultrasound examination. V iew: Sufficient Sorensen . Number of fetuses: 1 DATING Date Details Gest. age LESLEY Prior assessment 04/14/2018 GA: 6 w + 1 d 33 w + 0 d 12/07/2018 U/S 10/19/2018 based upon AC, BPD, Femur, HC 32 w + 3 d 12/11/2018 Assigned dating Dating performed on 09/28, based on the prior assessment (on 04/14/2018) 33 w + 0 d 12/07/2018 GENERAL EVALUATION Cardiac activity present. FHR 143 bpm. movements present. Presentation cephalic. Placenta anterior. Umbilical cord 3 vessel cord. Amniotic fluid MVP 5.2 cm. BIOMETRY Main Biometry: BPD 81.3 mm 32w 5d Hadlock OFD 110.3 mm 33w 1d Nicolaides HC 306.7 mm 34w 1d Hadlock Cerebellum tr 41.7 mm 35w 5d Nicolaides AC 277.2 mm 31w 5d Hadlock Femur 59.4 mm 31w 0d Hadlock Humerus 52.3 mm 30w 3d Marci Weight Calculation: EFW 1,848 g 27% Truman EFW (lb,oz) 4 lb 1 oz EFW by Hadlock ([id number]) ANATOMY The following structures appear normal: Head [...] structures were documented previously: Heart / Thorax Aortic arch view. Ductal arch view. Spine Cervical spine. Thoracic spine. Gillian mbar spine. Sacral spine. Gender: male. MATERNAL STRUCTURES Cervix Not examined Right Ovary Not examined Left Ovary Not examined RECOMMENDATION We discussed the findings on today's [facility] with the patient. Plan is for delivery on 11/09 g iven prior classical delivery. We discussed that the placenta does not show any overt signs concerning for placenta accreta at this time, however a small focal accreta carito ot be ruled out with ultrasound. Further ultrasound studies as clinically indicated.. Return to primary provider for continued care.. Thank-you for the opportunity to partici jack in the care of this patient. If you have questions regarding today's evaluation or if we can be of further service, please contact the [facility]. anomalies may be present but not detected IMPRESSION 1) Intrauterine at 33+0 weeks gestational age. 2) None of the anomalies commonly detect ed by ultrasound were evident in the limited anatomic survey described above. 3) Growth parameters and estimated weight were consistent with an appropriate for gestation age pattern of growth. 4) The amniotic fluid volume appeared no rmal. Ronela Pratima Foley MD [facility] US ORDERABLES documented in this encounter Visit Diagnoses Diagnosis Hx of pre-eclampsia in prior , currently with other poor obstetric hist ory BMI 45.0-49.9, adult (H) Body Mass Index 45.0-49.9, adult History of classical section documented in this encounter Care Teams Project Management Specialist Relationship Specialty Start Date End Date Lidya Beltran PCP - General log feeder 07/13/18 documented as of this encounter
--- OUTSIDE RECORDS SUMMARY | 2022-07-09 20:38 | XMS_ITS | Encounter Summary ---
:1990 Author Organization [place] Address [address] [place] [address]. [place] [address] Care Team Providers Name Role Phone Lidya Hanson Primary Care Provider Unavailable Encounter Details Date Type Department Care Team Description 10/19/2018 Travel Social History Tobacco Use Types Packs/Day [...] on filedocumented in this encounter Care Teams Dryer Feeder Relationship Specialty Start Date End Date Lidya Hanson PCP - General regulatory coordinator 07/13/18 documented as of this encounter
--- OUTSIDE RECORDS SUMMARY | 2022-07-09 20:38 | XMS_ITS | Encounter Summary ---
:1990 Author Organization [place] Address [address] [facility] [place] [address] Care Team Providers Name Role Phone Lidya Beltran Primary Care Provider Unavailable Reason for Referral Diagnostic Imaging Ultrasound - Closed Specialty Diagnoses / Procedures Referred By Contact Refer red To Contact Diagnoses Suspected anomaly, antepartum, single or unspecified fetus Rh Maternal Med Procedures [facility] US Comprehensive Single F/U [address] [place] [address] Referral ID Status Reason Start Date Expiration Date Visits Requ ested Visits Authorized [id number] Closed 07/13/2018 07/13/2019 1 1 ER Reason for Visit Diagnostic Imaging Ultrasound - Closed Specialty Diagnoses / Procedures Referred By Contact Refer red To Contact Diagnoses Suspected anomaly, antepartum, single or unspecified fetus Rh Maternal Med Procedures [facility] US Comprehensive Single F/U [address] [place] [address] Referral ID Status Reason Start Date Expiration Date Visits Requ ested Visits Authorized [id number] Closed 07/13/2018 07/13/2019 1 1 Encounter Details Date Type Department Care Team Description 08/05/2018 Hospital Encounter [facility] Becky Wang DO [address] [place], [place] [id number] Suspected Maternal Quique Cooper MD [address] [place] [address] anomaly, antepartum, [facility] single or [place] unspecified fetus [address] [facility] [address] [place] [address] Social History Tobacco Use Types [...] Procedure Name Priority Date/Time Associated Comments Diagnosis [facility] US COMPREHENSIVE Routine 08/05/2018 9:59 AM Suspected feta l Results for this SINGLE F/U LOPPER anomaly, procedure are i n antepartum, single the resul ts or unspecified section. fetus documented in this encounter Results [facility] US Comprehensive Single F/U (08/05/2018 9:59 AM LOPPER) Anatomical Region Laterality Modality Ultrasound Specimen (Source) Anatomical Collection Method Collection Time Re ceived Time Location / / Volume Laterality 08/05/2018 10:16 AM LOPPER Impressions 08/05/2018 10:03 AM LOPPER IMPRESSION Growth parameters and estimated we ight were consistent with appropriate for gestational age pattern of growth. The cardiac anatomy was again poorly visualized. anatomy appeared otherwise normal for gestational age. Narrative 08/05/2018 10:03 AM LOPPER Comp Follow Up Pat. Name: NORAH RODRIGUEZ Study Date: 08/05/2018 10:16am Pat. NO: [id number] Referring ??MD: CHASIDY BELTRAN Site: [facility] Geothermal Installer: Tomasa Stokes RDMS : 1990 Age: 28 [...] Biometry: BPD ?54.4 ?mm ? 22w 4d ?Hadlock OFD ?69.0 ?mm ? 21w 4d ?Nicolaides HC ?197.6 ?mm ?22w 0d ?Hadlock Cerebellum tr ?24.5 ? mm ?22w 4d ?Nicolaides AC ?169.9 ?mm ?22w 0d ?Hadlock Femur ?39.1 ? mm ?22w 4d ?Hadlock Humerus ?35.7 ?mm ? 22w 3d ?Marci Weight Calculation: EFW ? 486 ? g ? 38% ?Truman EFW (lb,oz) ? 1 lb 1 ?oz EFW by ?Hadlock ([id number]) Head / Face / Neck Biometry: Accounting Lecturer ? 5.6 ? mm CM ?2.1 ? [...] the original. Comp Follow Up Pat. Name:GARY Nirav CHUN te:08/05/2018 10:16am Pat. NO: [id number] MD:LIDYA BELTRAN Site:[facility]:Rula Redmond :1990Age:28 INDICATION Reevaluate growth and suboptimal a natomy. METHOD Transabdominal ultrasound examination. V iew: Suboptimal view: limited by maternal body habitus. Suboptimal view: limited by position Sorensen . Number of fetuses: 1 DATING Date Details Gest. age LESLYE Prior assessment 04/14/2018 GA: 6 w + 1 d 22 w + 2 d 12/07/2018 U/S 08/05/2018 based upon AC, BPD, Femur, HC 22 w + 2 d 12/07/2018 Assigned dating Dating performed on 06/27, based on the prior assessment (on 04/14/2018) 22 w + 2 d 12/07/2018 GENERAL EVALUATION [...] 1 lb 1 oz EFW by Hadlock ([id number]) Head / Face / Neck Biometry: Accounting Lecturer 5.6 mm CM 2.1 mm ANATOMY The [...] RECOMMENDATION We discussed the findings on today's ulalysha uribe with the patient. Your patient has been scheduled for a fe katlyn echocardiogram with Pediatric Cardiology. A copy of that consultation will be forwarded to you separately. A repeat ultrasound has been scheduled i n 4 weeks to reevaluate growth due to BMI >40, Return to primary provider for continued care. Thank-you for the opportunity to partici santiago in [...] normal for gestational age. Katie Patel DO [facility] US ORDERABLES documented in this encounter Visit Diagnoses Diagnosis Suspected anomaly, antepartum, sin gle or unspecified fetus documented in this encounter Care Teams Anodizer Relationship Specialty Start Date End Date Lidya Beltran PCP - General planograph operator 07/13/18 documented as of this encounter
--- OUTSIDE RECORDS SUMMARY | 2022-07-09 20:38 | XMS_ITS | Encounter Summary ---
:1990 Author Organization [facility] Address [address] [place] [address]. [place] [address] Care Team Providers Name Role Phone Lidya Beltran Primary Care Provider Unavailable Reason for Referral - Closed Specialty Diagnoses / Procedures Referred By Contact Refer red To Contact Cardiology Diagnoses History of poor growth Hx of pre-eclampsia in prior , currently Obesity affecting in second trimester Rh Maternal Med Zz Ur Peds Echo Lab Procedures Echo Complete-Peds Cardiology [address] [facility] [address] [place] [address] [place] [address] Referral ID Status Reason Start Date Expiration Date Visits Requ ested Visits Authorized [id number] Closed 08/05/2018 08/05/2019 1 1 TECHNICIAN Reason for Visit - Closed Specialty Diagnoses / Procedures Referred By Contact Refer red To Contact Cardiology Diagnoses History of poor growth Hx of pre-eclampsia in prior , currently Obesity affecting in second trimester Rh Maternal Med Zz Ur Peds Echo Lab Procedures Echo Complete-Peds Cardiology [address] [place] [address] [place] [address] Referral ID Status Reason Start Date Expiration Date Visits Requ ested Visits Authorized [id number] Closed 08/05/2018 08/05/2019 1 1 Encounter Details Date Type Department Care Team Description 08/31/2018 Hospital Encounter [facility] Echo/EKG Glen Bowden MD [address] [place], [place] [address] History of poor growth; [address] Steffi Inman DO [address] [place], [place] [address] Hx of pre-eclampsia in prior , currently ; [place] [address] Urmfmusfet Obesity affecting in second tr imester Social History Tobacco Use Types Packs/Day Years [...] Name Priority Date/Time Associated Diagnosis Comme nts ECHO Routine 08/31/2018 1:53 PM History of poor Result s for this COMPLETE* WELD TECHNICIAN growth procedure are in Hx of pre-eclampsia the resu lts in prior , section. currently pregna nt Obesity affecting in second trimester documented in this encounter Results Echo Complete-Peds Cardiology (08/31/2018 1:53 PM WELD TECHNICIAN) Anatomical Region Laterality Modality Ultrasound Specimen (Source) Anatomical Collection Method Collection Time Re ceived Time Location / / Volume Laterality 08/31/2018 1:14 PM WELD TECHNICIAN Narrative 08/31/2018 2:16 PM WELD TECHNICIAN [id number]^DENNISE^GLEN^ABIGAIL ?Study ID: [id number] ?[facility] ?[facility] ?[address] ?[place] [address] ? Echocardiogram __ Name: NORAH RODRIGUEZ Study Date: 08/31/2018 01:14 PM ? Patient Location: [facility] Gender: Female ?Patient Class: Outpatient : 1990 ? Age: 28 yrs Ordering Provider: GLEN BOWDEN Referring Provider: LIDYA BELTRAN Performed By: Sabina Mera RDCS Reading Physician: Patsy Miramontes Reason For Study: , History of poor feta l growth, Hx of pre-eclampsia in prior pre Data: Number of fetuses: This is a kraus gestation. Due date: 12/07/2018. Gestational age: 26w0d. Deli very at: undecided. Specific Indication: echocar diogram performed for poor views of heart on ultrasound. __ CONCLUSIONS Likely normal echocardiogram. The study quality is poor. Difficult study due to position and poor imaging w indows. heart rate is regular at 147 bpm. The aortic arch is not visualiz ed. No hydrops. Results reviewed with the mother. Post-gene echocardiogram should be perf ormed within 24-48 hours of life. __ Technical Information: A complete two dimensional, spectral and color Doppler echocardiogram is performed. The study quality is poor. Di fficult study due to position and poor imaging windows. position and segmental anatomy: The fetus in transverse position. The he art is in left chest. The cardiac apex points towards the left. There is normal atrial arrangement, with concordant atrioventricular and ventriculoarterial connections. The abdominal aorta is to the left of the spine. There is a left s ided stomach. Systemic and pulmonary veins: The systemic venous return is normal. At least one right and one left pulmonary veins are seen returning to th e left atrium. Atria and atrial septum: Normal right atrial size. The left atriu m is normal in size. The flap of the foramen ovale opens in to the left atriu m. There is laminar [id number]-rr-[id number] shunting across the foramen ovale. Atrioventricular valves: The tricuspid valve is normal in appeara nce and motion. There is no tricuspid insufficiency. The mitral valve is franca l in appearance and motion. There is no mitral valve insufficiency. Ventricles and ventricular septum: Normal right ventricular size. Normal ri ght ventricular systolic function. Normal left ventricular size. Normal lef t ventricular systolic function. No obvious ventricular level shunting. Outflows tracts: Normal great artery relationship. The ri ght ventricular outflow tract is normal in caliber. The pulmonary valve h as normal appearance and motion. There is normal flow across the pulmonary valv e. There is unobstructed flow through the left ventricular outflow tract. The aortic valve has normal appearance and motion. There is normal flow across the aortic valve. Great arteries: The main pulmonary artery has normal shahriar earance. There is unobstructed flow in the main pulmonary artery. The pulmonary artery bifurcation is normal. There is unobstructed flow in both branch pulm onary arteries. The ductus arteriosus has normal appearance with normal antegr allie flow. There is unobstructed antegrade flow in the ascending aorta. T he aortic arch is not visualized. Effusions and extracardiac findings: No pericardial effusion. No hydrops. cardiac rhythm: heart rate is regular at 147 bpm. Doppler: There is normal flow in the ductus venos us, umbilical artery and umbilical vein. echocardiography cannot rule out s mall atrial or ventricular septal defects, persistent ductus arteriosus, m ild coarctation of the aorta, partial anomalous pulmonary venous return, minor anatomic valve anomalies or coronary artery anomalies. Doppler Measurements & Calculations Ao V2 max: 66.4 cm/sec ? PDA max sys madison: 76.6 cm/sec Ao max P.8 mmHg __ Reading Physician: ?Hayley tidwell MD 08/31/2018 02:16 PM Procedure Note Hayley Bragg MD - 08/31/2018Form atting of this note might be different from the original. [id number]^DENNISE^GLEN^ABIGAIL Study ID: [id number] [facility] [address] [address] Echocardiogram __ Name: NORAH RODRIGUEZ Study Date: 08/31/2018 01:14 PM [facility] Gender: Female Patient Class: Outpatient : 1990 Age: 28 yrs Ordering Provider: GLEN BOWDEN Referring Provider: LIDYA BELTRAN Performed By: Sabina Mera RDCS Reading Physician: Patsy Miramontes Reason For Study: , History of poor feta l growth, Hx of pre-eclampsia in prior pre Data: Number of fetuses: This is a kraus gestation. Due date: 12/07/2018. Gestational age: 26w0d. Deli very at: undecided. Specific Indication: echocar diogram performed for poor views of heart on ultrasound. __ CONCLUSIONS Likely normal echocardiogram. The study quality is poor. Difficult study due to position and poor imaging w indows. heart rate is regular at 147 bpm. The aortic arch is not visualiz ed. No hydrops. Results reviewed with the mother. Post- echocardiogram should be perf ormed within 24-48 hours of life. __ Technical Information: A complete two dimensional, spectral and color Doppler echocardiogram is performed. The study quality is poor. Di fficult study due to position and poor imaging windows. position and segmental anatomy: The fetus in transverse position. The he art is in left chest. The cardiac apex points towards the left. There is normal atrial arrangement, with concordant atrioventricular and ventriculoarterial connections. The abdominal aorta is to the left of the spine. There is a left s ided stomach. Systemic and pulmonary veins: The systemic venous return is normal. At least one right and one left pulmonary veins are seen returning to th e left atrium. Atria and atrial septum: Normal right atrial size. The left atriu m is normal in size. The flap of the foramen ovale opens in to the left atriu m. There is laminar [id number]-am-ggrb shunting across the foramen ovale. Atrioventricular valves: The tricuspid valve is normal in appeara nce and motion. There is no tricuspid insufficiency. The mitral valve is franca l in appearance and motion. There is no mitral valve insufficiency. Ventricles and ventricular septum: Normal right ventricular size. Normal ri ght ventricular systolic function. Normal left ventricular size. Normal lef t ventricular systolic function. No obvious ventricular level shunting. Outflows tracts: Normal great artery relationship. The ri ght ventricular outflow tract is normal in caliber. The pulmonary valve h as normal appearance and motion. There is normal flow across the pulmonary valv e. There is unobstructed flow through the left ventricular outflow tract. The aortic valve has normal appearance and motion. There is normal flow across the aortic valve. Great arteries: The main pulmonary artery has normal shahriar earance. There is unobstructed flow in the main pulmonary artery. The pulmonary artery bifurcation is normal. There is unobstructed flow in both branch pulm onary arteries. The ductus arteriosus has normal appearance with normal antegr allie flow. There is unobstructed antegrade flow in the ascending aorta. T he aortic arch is not visualized. Effusions and extracardiac findings: No pericardial effusion. No hydrops. cardiac rhythm: heart rate is regular at 147 bpm. Doppler: There is normal flow in the ductus venos us, umbilical artery and umbilical vein. echocardiography cannot rule out s mall atrial or ventricular septal defects, persistent ductus arteriosus, m ild coarctation of the aorta, partial anomalous pulmonary venous return, minor anatomic valve anomalies or coronary artery anomalies. Doppler Measurements & Calculations Ao V2 max: 66.4 cm/sec PDA max sys madison: 76.6 cm/sec Ao max P.8 mmHg __ Reading Physician: Hayley Bragg MD 08/31/2018 02:16 PM Glen Bowden MD CV PEDS ECHO ORDERABLES documented in this encounter Visit Diagnoses Diagnosis History of poor growth Personal history of problems Hx of pre-eclampsia in prior , currently with other poor obstetric hist ory Obesity affecting in second tr imester documented in this encounter Care Teams Food Technologist Relationship Specialty Start Date End Date Lidya Beltran PCP - General supervisor payroll 07/13/18 documented as of this encounter
--- OUTSIDE RECORDS SUMMARY | 2022-07-09 20:38 | XMS_ITS | Encounter Summary ---
:1990 Author Organization [place] Address [address] [place] [address]. [place] [address] Care Team Providers Name Role Phone Lidya Hanson Primary Care Provider Unavailable Encounter Details Date Type Department Care Team Description 09/21/2018 Travel Social History Tobacco Use Types Packs/Day [...] on filedocumented in this encounter Care Teams Trigonometry Tutor Relationship Specialty Start Date End Date Lidya Hanson PCP - General warp changer 07/13/18 documented as of this encounter
--- OUTSIDE RECORDS SUMMARY | 2022-07-09 20:38 | XMS_ITS | Encounter Summary ---
:1990 Author Organization [place] Address [facility] 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 Diagnoses Previous, desires PT WILL NOT BE 39 WEEKS WILL BE 36 WKS DUE TO PREVIOUS CLASSICAL Rh Labor And Delivery Procedures SECTION repeat, bilateral salpingectomy [address] [place], [place] [address] Phone: Fax: Referral ID Status Reason Start Date Expiration Date Visits Requ ested Visits Authorized [id number] 1 1 Encounter Details Date Type Department Care Team Description 11/09/2018 - Hospital Encounter [facility] Sue Herrera S/P repeat low 11/12/2018 [facility] Isaias transverse [address] SECURITY DISPATCHER (Primary Dx) [place], [place] [facility] [phone] [address] [facility] [phone] [address] [facility] [address] [place], [place] [address] Social History Tobacco Use Types Packs/Day Years [...] Comments Blood Pressure 122/71 11/12/2018 9:00 AM PICKLING MACHINE OPERATOR Pulse 86 11/12/2018 2:00 AM PICKLING MACHINE OPERATOR Temperature 36.7 ??C (98.1 ??F) 11/12/2018 9:00 AM PICKLING MACHINE OPERATOR Respiratory Rate 18 11/12/2018 9:00 AM PICKLING MACHINE OPERATOR Oxygen Saturation 99% 11/10/2018 9:26 AM PICKLING MACHINE OPERATOR Inhaled Oxygen Concentration - - Weight 108.9 kg (240 lb) 11/09/2018 10:32 AM PICKLING MACHINE OPERATOR Height 149.9 cm (4' 11) 11/09/2018 10:32 AM PICKLING MACHINE OPERATOR Body Mass Index 48.47 11/09/2018 10:32 AM PICKLING MACHINE OPERATOR documented in this encounter Discharge Summaries Sue Herrera MD - 11/12/2018 11:20 AM CST Patient was admitted 11/09/18 for repeat c/s and bilateral salpingectomies. She had a routine post-opcourse and was discharged with routine teaching. Please see hospital chart for specifics of admission. Sue Herrera LING MACHINE OPERATOR documented in this encounter Discharge Instructions Discharge InstructionsToKerrie escamilla RN - 11/12/2018 9:32 AM CST Postop Instructions Follow up in 6 weeks for visit. Remove clear dressing in 1 week. : [phone] Activity ?? Do not lift more than [...] questions or concerns after you return home. LING MACHINE OPERATOR documented in this encounter Medications at Time [...] discharge instructions were reviewed with patient by group underwriter and all questions answered. Patient left unit with all belongings and at 1120. Filled Oxycodone prescription given to patient and discussed next time available. LING MACHINE OPERATOR Meaghan Bee MD - 11/12/2018 8:48 AM CST POD3 Feels well, no concerns BP 126/70 Pulse 86 Temp 97.8 ??F (36.6 ??C) (Oral) Resp 18 Ht 1.499 m (4' 11) Wt 108.9 kg(240 lb) LMP 02/23/2018 SpO2 99% BMI 48.47 kg/m?? NAD Abd soft, ND Inc CDI Ext NT POD3 s/p RLTCS discharge home F/u 6 wks Meaghan Bee LING MACHINE OPERATOR Sue Herrera MD - 11/11/2018 7:38 AM CST [facility] Progress Note Subjective: This is the [...] (PHN) met with patient, discussed resources within [facility]. Provided family resources of [facility] services resource card, home visiting card, community resource guide and car seat information card given and discussed. Family is aware how to add baby to insur ance and have a primary provider arranged for baby. Explained how to self refer to [facility]. Patient declined any questions or concerns. Neville Lockwood MD - 11/10/2018 8:46 AM CST [facility] Post-Op / Progress Note Interval History: [...] identified. Plan: Ambulation encouraged Neville Sanches MD LING MACHINE OPERATOR documented in this encounter Miscellaneous Notes Plan of Care - Kerrie Fountain RN - 11/12/2018 9:28 AM CST Patient meeting expected goals. Is up independent in room, meeting all personal and needs. VSS. Pain is being managed with [...] andwill be ready for discharge later today. LING MACHINE OPERATOR Plan of Care - Karol Velasquez RN - 11/12/2018 4:53 AM CST Patient vital signs stable and meeting expected outcomes. and bottle feeding independently. Up independently and voiding adequately. Pain controlled with tylenol, ibuprofen, and oxycodone. Incision WDL. Able to perform all cares for self and infant. Bonding well with baby. Plan todischarge home today. Will continue to monitor. LING MACHINE OPERATOR Plan of Care - Sherri Caballero RN [...] 's needs, bonding well. Continue to monitor. LING MACHINE OPERATOR Plan of Care - Kerrie Fountain RN [...] loss issues. Patient is bonding well with and performing all cares. Encouraged walking halls. LING MACHINE OPERATOR Plan of Care - Jacquelin Cavazos RN - 11/11/2018 4:53 AM CST Having some increased pain, managing with tylenol and ibuprofen, also trying heating pad. Nipple cream given for sore nipples. Needing encouragement and reinforcement for baby cares. No support person this shift. Bonding well with baby. Safe sleep practices reinforced. LING MACHINE OPERATOR Plan of Care - Shante Artis RN [...] post feeds this evening evenwith RN assistance. LING MACHINE OPERATOR Plan of Care - Zuleyka Farrell RN - 11/10/2018 3:23 PM CST VSS, Bonding well with baby. Pain is well controlled with Toradol and tylenol. Ol catheter removed at 13:00, tolerated well. Awaiting first void post removal. Ambulated in room with a stand by assist. Steady on her feet, will call out when she needs to use the bathroom. Tolerating regular diet well. Independent in self and baby cares. is going well. LING MACHINE OPERATOR Note - Yesenia Shah RN - 11/10/2018 11:33 AM CST LC visit. Infant has been latching frequently and well per Norah's report and RN assessments, however is LPT and small. OT's have been stable. She is also using hand expression and pumping. Weight loss is WNL. Plan for continued support with feeds and close monitoring of infant latch. No questions present at this time. LING MACHINE OPERATOR Plan of Care - Aracely Brink RN [...] is going well. Pt needs reinforcement on LPT education. Bonding with infant. Continued to monitor. LING MACHINE OPERATOR Plan of Care - Shante Artis RN [...] hand expressing. VSS will continue to monitor. LING MACHINE OPERATOR Plan of Care - Khadijah Cuellar RN - 11/09/2018 5:03 PM CST Data: Norah Chun transferred to 422 via cart at 1630. Baby transferred via parent's arms. Action: Receiving unit notified of transfer: Yes. Patient and family notified of room change. Reportgiven to CHRISTIANNE Frey at 1435. Belongings sent to receiving unit. Accompanied by Registered Nurse. Oriented patient to surroundings. Call light within reach. ID bands double-checked with receiving RN. Response: Patient tolerated transfer and is stable. LING MACHINE OPERATOR Plan of Care - Jasmine Gibson RN - 11/09/2018 3:32 PM CST Toxicology screen done in error. Patient denies being a smoker. Bedside handoff given to Khadijah FAUST. LING MACHINE OPERATOR Provider Notification - Jasmine Gibson RN - 11/09/2018 1:30 PM CST 11/09/18 1311 Provider Notification Provider Name/Title Dr. Herrera Method of Notification At Bedside Request Evaluate in Person LING MACHINE OPERATOR Op Note - Sue Herrera MD - [...] 4. Bilateral salpingectomies. SURGEON: Sue Herrera MD INFORMATION SERVICES ASSISTANT: Oneida Ochoa PA-C, and Meaghan Bee MD ANESTHESIA: Spinal. ESTIMATED BLOOD LOSS: 146 QBL. SPECIMENS: Cord blood and blood as well as bilateral fallopian tubes. FINDINGS: A male with scarring of the uterus to anterior [...] hours after delivery. She transferred care to [facility] due to the ability to do echos over her primary provider [facility]. She was seen in the office. Risks, [...] and the peritoneum was tented with 2 [place] clamps and entered sharply with the [place] scissors. A stretch of the peritoneal cavity [...] in stable condition. SUE HERRERA MD MT: TRISTEN Name: NORAH RODRIGUEZ MRN: [id number] Account: [id number] : 1990 Procedure Date: 11/09/2018 Document: [id number] cc: Lidya Hanson MD LING MACHINE OPERATOR Brief Op Note - Sue Herrera MD - 11/09/2018 1:04 PM CST [facility] Brief Operative Note Pre-operative diagnosis: 1. [...] operative report for full details Sue Herrera LING MACHINE OPERATOR Plan of Care - Jasmine Gibson RN - 11/09/2018 11:56 AM CST , 36 weeks gestation. Here for repeat section and bilateral salpingectomy, patient has classical incision. Category 1 tracing. Consent signed. Education done. home with children. Patient's mother will accompany patient to surgery. LING MACHINE OPERATOR Pharmacy-Admission Medication History - Annabelle Nicolas RPH - 11/07/2018 4:55 PM CST Admission medication history interview status for this patient is complete. See [facility] admission navigator for allergy information, prior to admission medications and immunization status. MAINTENANCE PLUMBER meds completed by pre-admitting nurse Zohreh Andrade [...] mouth 3 times daily Yes Reported, Patient LING MACHINE OPERATOR documented in this encounter Plan of Treatment Not on filedocumented as of this encounter Procedures Procedure Name Priority Date/Time Associated Comments Diagnosis HEMOGLOBIN Routine 11/10/2018 7:01 AM Results f or this PICKLING MACHINE OPERATOR procedure are i n the results section. SURGICAL PATHOLOGY Routine 11/09/2018 12:46 Resul ts for this EXAM PM PICKLING MACHINE OPERATOR procedure are i n the results section. SECTION, WITH 11/09/2018 11:49 Previous, jennifer res BILATERAL AM PICKLING MACHINE OPERATOR PT WILL NOT BE 39 SALPINGECTOMY WEEKS WILL BE 36 WKS DUE TO PREVIOUS CLASSICAL Special Needs 4'11 240# stated DRUG ABUSE SCRN 7 UR Routine 11/09/2018 10:00 AM Results for this (/) (RH, SH, UR) PICKLING MACHINE OPERATOR procedure are in the results section . [...] encounter Results (ABNORMAL) Hemoglobin (11/10/2018 7:01 AM PICKLING MACHINE OPERATOR) P athologist Signature Hemoglobin 10.7 (L) 11.7 - 15.7 11/10/2018 [place] g/dL 7:17 AM [facility] Specimen Anatomical Collection Method Collection Time Receive d Time (Source) Location / / Volume Laterality Blood specimen 11/10/2018 7:01 AM 019 7:02 (specimen) PICKLING MACHINE OPERATOR AM PICKLING MACHINE OPERATOR Sue Herrera MD LAB - BLOOD ORDERABLES Performing Organization Address City/State/ZIP Code Phon e Number M [place] [address] [address] [facility] [address] [phone] Surgical pathology exam (11/09/2018 12:46 PM PICKLING MACHINE OPERATOR) Component Value Ref Test Analysis Performed At [facility] gist Range Method Time Signature Copath Report Patient Name: NORAH RODRIGUEZ MR#: [id number] Specimen #: [id number] Collected: 11/09/2018 Received: 11/09/2018 Reported: 11/10/2018 12:27 [...] cm. ??The serosa is pink-purple and edematous. ??Patent Paralegal sectio ns of both fallopian tubes with fimbria are submitted in 2 blocks. (Dictated by: MIKEY Erazo 2018 03:58 PM) MICROSCOPIC: Microscopic evaluation performed. The technical component of this testing was completed at the [facility], with the professional compo nent performed at the [facility], [address] [place] [address] ??[phone] ([phone]) CPT Codes: A: 71987-NN2 COLLECTION SITE: Client: [facility] Location: RHOB (R) Specimen (Source) Anatomical Collection Method Collection Time Re ceived Time Location / / Volume Laterality Tissue specimen BOTH FALLOPIAN 11/09/2018 12:46 (specimen) TUBES / Unknown PM PICKLING MACHINE OPERATOR Sue Herrera MD [facility] Performing Organization Address City/State/ZIP Code Phon e Number [place] Drug Screen Urine / (11/09/2018 10:00 AM [facility]) [facility] Method Time Signature Amphetamine Qual Negative NEG^Negati 11/09/2018 [place] Urine ve 11:38 AM [facility] Comment: Cutoff for a negative amphetami ne is 500 ng/mL or less. Cannabinoids Qual Negative NEG^Negative 11/09/2018 11:39 AM [facility] Comment: Cutoff for a negative cannabino id is 50 ng/mL or less. Cocaine Qual Urine Negative NEG^Negative 11/09/2018 11:38 A M [facility] Comment: Cutoff for a negative cocaine i s 300 ng/mL or less. Opiates Qualitative Negative NEG^Negative 11/09/2018 11:38 AM [facility] Comment: Cutoff for a negative opiate is 300 ng/mL or less. Pcp Qual Urine Negative NEG^Negative 11/09/2018 11:39 AM [facility] Comment: Cutoff for a negative PCP is 25 ng/mL or less. Specimen Anatomical Collection Method Collection Time Receive d Time (Source) Location / / Volume Laterality Urine specimen URINE SPECIMEN / 11/09/2018 10:00 11/09 (specimen) Unknown AM PICKLING MACHINE OPERATOR 11:17 AM PICKLING MACHINE OPERATOR Sue Herrera MD LAB - URINE ORDERABLES Performing Organization Address City/State/ZIP Code Phon e Number M [facility] [address] [address] [facility] [address] [phone] Group B strep PCR (11/02/2018) athologist Signature Group B Strep Negative PCR Patient Reported LAB - MICRO GENERAL ORDERABL ES Rubella Antibody IgG Quantitative (04/15/2018) athologist Signature Rubella YAKELIN negative IgG Specimen (Source) Anatomical Location Collection Method / Collectio n Time Received Time / Laterality Volume Blood specimen (specimen) Patient Reported LAB - BLOOD ORDERABLES Rubella Antibody IgG Quantitative (04/15/2018) Patholo gist Method Time Signature Rubella Antibody negative IU/mL IgG Quantitative Specimen (Source) Anatomical Location Collection Method / Collectio n Time Received Time / Laterality Volume Blood specimen (specimen) Patient Reported LAB - BLOOD ORDERABLES HIV Antigen Antibody Combo (04/15/2018) Analysis Performed At Patho logist Time Signature HIV Antigen non-reacti Antibody Combo ve Specimen (Source) Anatomical Location Collection Method / Collectio n Time Received Time / Laterality Volume Blood specimen (specimen) Patient Reported LAB - BLOOD ORDERABLES Hepatitis B surface antigen (04/14/2018) Analysis Performed At Patho logist Time Signature Hep B Surface non-reacti Agn ve Specimen (Source) Anatomical Location Collection Method / Collectio n Time Received Time / Laterality Volume Blood specimen (specimen) Patient Reported LAB - BLOOD ORDERABLES documented in this encounter Visit Diagnoses Diagnosis S/P repeat low transverse - Pr imary delivery, without mention of in dication, unspecified as to episode of care S/P repeat low transverse delivery, without mention of in dication, unspecified as to episode of care documented in this encounter Administered Medications Inactive Administered Medications - up to 3 most recent administrations Medication Order MAR Action Action Date Dose Rate Site acetaminophen (TYLENOL) tablet 975 Given 11/12/2018 4:22 AM PICKLING MACHINE OPERATOR 975 mg mg 975 mg, Oral, EVERY 8 HOURS, First dose on Wed11/09/18 at 1400, For 3 days, Do not use if patient has an active opioid/acetaminophen combined analgesic product ordered for pain. Maximum acetaminophen dose from all sources = 75 mg/kg/day not to exceed 4 grams/day., Post-procedure Given 11/11/2018 8:06 PM PICKLING MACHINE OPERATOR 975 mg Given 11/11/2018 11:29 AM PICKLING MACHINE OPERATOR 975 mg dextrose 5% in lactated ringers infusion New Bag 11/10/2018 4:20 AM PICKLING MACHINE OPERATOR 125 mL/hr at 125 mL/hr, Intravenous, CONTINUOUS, Subsequent IV at nurse's discretion. DC IV when tolerating fluids or at nurse's discretion & saline lock., Post-procedure, Starting on Wed11/09/18 at 1400, Until 11/12/18 at 1321 New Bag 11/09/2018 8:45 PM PICKLING MACHINE OPERATOR 125 mL/hr ibuprofen (ADVIL/MOTRIN) tablet 800 mg Given 11/12/2018 8:59 AM PICKLING MACHINE OPERATOR 800 mg 800 mg, Oral, EVERY 6 HOURS PRN, other, cramping, Starting on Ene 11/10/18 at 1200, Start 6 hours after ketorolac is completed (if ordered). Max dose: 3200 mg/day, Post-procedure Given 11/12/2018 1:31 AM PICKLING MACHINE OPERATOR 800 mg Given 11/11/2018 7:06 PM PICKLING MACHINE OPERATOR 800 mg ketorolac (TORADOL) injection 30 mg Given 11/10/2018 9:26 AM PICKLING MACHINE OPERATOR 30 mg 30 mg, Intravenous, EVERY 6 HOURS, First dose on Wed11/09/18 at 1400, For 24 hours, Give first dose in PACU (alright to give with narcotic analgesic if ordered) X 24 hours Can cause pain on injection. If ordered intravenously (IV) : administer through a running maintenance fluid over 1 minute followed by a flush. If patient complains of pain on injection, may dilute 15-30 mg in 5 mL and push over 1 to 2 minutes. , Post-procedure Given 11/10/2018 2:42 AM PICKLING MACHINE OPERATOR 30 mg Given 11/09/2018 8:02 PM PICKLING MACHINE OPERATOR 30 mg lactated ringers BOLUS 1,000 mL New Bag 11/09/2018 10:27 AM PICKLING MACHINE OPERATOR 1,000 mLs 999 mL/hr Intravenous, 1,000 mL, ONCE, On Wed11/09/18 at 1000, For 1 dose, Prior to surgery. IF preeclamptic give only 500 mL, Pre-procedure lactated ringers infusion New Bag 11/09/2018 12:40 PM PICKLING MACHINE OPERATOR at 125 mL/hr, Intravenous, CONTINUOUS, Pre-procedure, Starting on Wed11/09/18 at 1000, Until Wed11/09/18 at 1308 New Bag 11/09/2018 12:06 PM PICKLING MACHINE OPERATOR New Bag 11/09/2018 11:28 AM PICKLING MACHINE OPERATOR 125 mL/hr medication instruction CONTINUOUS PRN, Starting on Wed11/09/18 [...] PACU/Phase II nalbuphine (NUBAIN) injection 2.5-5 mg Given 11/10/2018 6:56 AM PICKLING MACHINE OPERATOR 5 mg 2.5-5 mg, Intravenous, EVERY 6 HOURS PRN, other, for pruritus, Starting on Wed11/09/18 at 1349, Give 2.5 mg initially. If pruritus persists after 30 minutes, may give additional 2.5 mg. If effective, then repeat effective dose Q6H PRN pruritus., PACU/Phase II Given 11/10/2018 1:10 AM PICKLING MACHINE OPERATOR 2.5 mg Given 11/10/2018 12:32 AM PICKLING MACHINE OPERATOR 2.5 mg Opioid plan - medication inst ruction CONTINUOUS [...] tablet 5-10 mg Given 11/12/2018 8:59 AM PICKLING MACHINE OPERATOR 5 mg 5-10 mg, Oral, EVERY 3 HOURS PRN, other, pain control or improvement in physical function. Hold dose for analgesic side effects., Starting on Wed11/09/18 at 1350, Start with the lowest dose. May adjust dose by 5 mg every 3 hours as needed. Notify provider to assess for uncontrolled pain or analgesic side effects. Hold while on WEIGHT LOSS CONSULTANT or with regular IV opioid dosing. Maximum total is 80 mg in 24 hours., Post-procedure Given 11/12/2018 4:22 AM PICKLING MACHINE OPERATOR 5 mg Given 11/11/2018 8:06 PM PICKLING MACHINE OPERATOR 5 mg oxytocin (PITOCIN) 30 units in New Bag 11/09/2018 3:32 PM PICKLING MACHINE OPERATOR 100 mL/hr 100 mL/hr 500 mL 0.9% NaCl infusion 100 mL/hr, Intravenous, CONTINUOUS, Starting on Wed11/09/18 at 1400, Anesthesia Provider to administer at 340 mL/hr for 30 minutes (or longer per provider discretion) then decrease to 100 mL/hr. Continue until a total of 2 bags administered (1st bag initiated by Anesthesia Provider.) Discontinue IV or saline lock IV per nurse discretion., Post-procedure scopolamine (TRANSDERM) 72 hr Given 11/09/2018 5:22 PM PICKLING MACHINE OPERATOR 1 pat ch Behind Left Ear patch 1 patch 1 patch, Transdermal, ONCE, On Wed11/09/18 at 1400, For 1 dose, For nausea/vomiting. Apply patch to skin, behind ear. Remove after 24 hours. Each 1.5 mg patch delivers 1 mg of scopolamine., PACU/Phase II senna-docusate (SENOKOT-S/PERICOLACE) Given 11/12/2018 8:[address] 1 tablet 8.6-50 MG per tablet 1 tablet 1 tablet, Oral, 2 TIMES DAILY PRN, constipation, Starting on Wed11/09/18 at 1350, If no bowel movement in 24 hours, increase to 2 tablets PO. Hold for loose stools. Preferred agent for constipation related to opioids., Post-procedure Given 11/11/2018 9:06 AM PICKLING MACHINE OPERATOR 1 tablet Given 11/10/2018 10:52 PM PICKLING MACHINE OPERATOR 1 tablet senna-docusate (SENOKOT-S/PERICOLACE) 8. 6-50 MG per tablet 2 tablet 2 tablet, Oral, 2 TIMES DAILY PRN, const ipation, Starting on Wed11/09/18 at 1350, Hold for loose stools. Preferred agent for constipatio n related to opioids., Post-procedure sodium citrate-citric acid (BICITRA) Given 11/09/2018 11:[address] 30 mLs solution 30 mL 30 mL, Oral, PRE-OP/PRE-PROCEDURE, Starting on Wed11/09/18 at 0950, For 1 dose, For gastric pH neutralization. GIVE WITHIN 45 minutes PRIOR TO SURGICAL PROCEDURE., Pre-procedure venlafaxine (EFFEXOR) tablet 75 mg Given 11/12/2018 8:59 AM PICKLING MACHINE OPERATOR 75 mg 75 mg, Oral, 3 TIMES DAILY, First dose on Wed11/09/18 at 1600 Given 11/11/2018 9:31 PM PICKLING MACHINE OPERATOR 75 mg Given 11/11/2018 4:15 PM PICKLING MACHINE OPERATOR 75 mg documented in this encounter Active and Recently Administered Medications Times are shown in PICKLING MACHINE OPERATOR. Scheduled Medication Order 11/10/2018 11/11/2018 11/12/2018 acetaminophen (TYLENOL) tablet 975 mg 0242 (Given - Pr ovider: Aracely Brink RN)1114 (Given - Provider: Zuleyka Farrell RN)2001 (Given - Provider: Shante Artis RN) 0343 (Given - Provider: Jacquelin Cavazos RN )112 (Given - Provider: Kerrie Fountain RN)2005 (Given - Provider: Sherri Caballero RN) 0422 [...] ost-procedure ketorolac (TORADOL) injection 30 mg (COMPLETED) 024 ( Given - Provider: Aracely Brink, CHRISTIANNE)09 (Given - Provider: Zuleyka Farrell RN) 30 [...] Shante Artis RN) 0906 (Given - Provider: Kerrie Fountain R N)1615 (Given - Provider: Sherri Caballero, CHRISTIANNE)2131 (Given - Provider: Sherri Caballero RN) 0859 (Given - Provider: Kerrie Fountain RN) 75 mg, Oral, 3 TIMES DAILY, First dose on Wed11/09/18 at 1600 Continuous Medication Order 11/10/2018 11/11/2018 11/12/2018 dextrose 5% in lactated ringers infusion 0420 (New Bag - Provider: Aracely L Kolles, RN) at 125 mL/hr, Intravenous, CONTINUOUS, S ubsequent IV at nurse's discretion. DC IV when tolerating fluids or at nurse's discretion & saline lock., Post- procedure, Starting Wed11/09/18 at 1400, Until 11/12/18 at 1321 oxytocin (PITOCIN) 30 units in 500 mL 0.9% NaCl infusion 100 mL/hr, Intravenous, at 100 mL/hr, CO NTINUOUS, Starting Wed11/09/18 at 1400, Post-procedure, Anesthesia Provider to administer [...] 10 mg, Rectal, DAILY PRN, constipation, Starting Wed11/11/18 at 0000, Start POD 2, Post-procedure hydrocortisone 2.5 % cream Rectal, 3 TIMES DAILY PRN, hemorrhoids, Starting Wed11/09/18 at 1350, Apply to hemorrhoids. Send only if nurse requests., Post-procedure ibuprofen (ADVIL/MOTRIN) tablet 800 mg 1609 (Given - P rovider: Shante Artis, CHRISTIANNE)2253 (Given - Provider: Shante Artis, CHRISTIANNE) 0728 (Given - Provider: Jacquelin Cavazos RN)1251 (Given - Provider: Kerrie Fountain, CHRISTIANNE)1906 (Given [...] D insertion or accessing implanted port., Starting 11/09/18 at 1350, Do NOT give if patient [...] PRN, mild pain with VAD insertion., Starting 11/09/18 at 1350, Do NOT give if patient has a history of allergy to any local anesthetic or any isela product. MAX dose 1 mL subcutaneous OR intradermal in divid ed doses as needed for VAD insertion., Post-procedure medication instruction CONTINUOUS PRN, Starting 11/09/18 at 1349, Until 11/12/18 at 1321, -All [...] 2 MIN PRN , opioid reversal, Starting Wed11/09/18 at 1350, For respiratory rate LESS than [...] not need Tdap vaccine CONTINUOUS PRN, Starting Wed11/09/18 at 1350, Until 11/12/18 at 1321, Post-procedure ondansetron (ZOFRAN) injection 4 mg 4 mg, Intravenous, EVERY 6 HOURS PRN, na usea, vomiting, Administer over 2-5 Minutes, Starting Wed11/09/18 at 1350, If nausea not resolved in 15 minutes, notify provider before proceeding to prochlorpera zine (COMPAZINE) [if ordered]. Irritant. For ordered IV [...] Fountain, RN)1616 (Given - Provider: Sherri Caballero, CHRISTIANNE)2006 (Given - Provider: Sherri Caballero, CHRISTIANNE) 0422 (Given - Provider: Karol langston RN)0859 (Given - Provider: Kerrie Fountain RN) 5-10 mg, Oral, EVERY 3 HOURS PRN, other, pain control or improvement in physical function. Hold dose for analgesic side effects., Starting Wed11/09/18 at 1350, Start with the lowest dose. May adjust dos e by 5 mg every 3 hours as needed. Notif y provider to assess for uncontrolled pain or analgesic side effects. Hold while on WEIGHT LOSS CONSULTANT or with regular IV opioid dosing. Maximum [...] 2251 (Given - Provider: Shante Artis RN) 09 (Giv en - Provider: Kerrie Fountain, CHRISTIANNE) 0859 (Given - Provider: Rula Orona N) 1 tablet, Oral, 2 TIMES DAILY PRN, const ipation, Starting Wed11/09/18 at 1350, If no bowel movement in 24 hours, increase to 2 tablets PO. Hold for loose stools. Preferred agent for constipation related to opioids., Post-procedure senna-docusate (SENOKOT-S/PERICOLACE) 8. 6-50 MG per tablet 2 tablet(Linked Group 1) 2251 (See Alternative - Provider: Shante Artis RN) 09 (See Alternative - Provider: Kerrie Fountain, CHRISTIANNE) [...] 2 TIMES DAILY PRN, const ipation, Starting 11/09/18 at 1350
If no bowel movement in 24 hours, increase to 2 tablets PO. Hold for loose stools. Preferred agent for constipation related to opioids.
Post-procedure Or senna-docusate (SENOKOT-S/PERICOLACE) 8.6-50 MG per tablet 2 tabletJump to med 2 tablet, Oral, 2 TIMES DAILY PRN, const ipation, Starting 11/09/18 at 1350
Hold for loose stools. Preferred agent for constipation related to opioids.
Post-procedure documented in this encounter Care Teams Snapper On Relationship Specialty Start Date End Date Lidya Hanson PCP - General painter apprentice 07/13/18 documented as of this encounter
--- OUTSIDE RECORDS SUMMARY | 2022-07-09 20:38 | XMS_ITS | Encounter Summary ---
:1990 Author Organization [place] Address [facility] [place] [address] Care Team Providers Name Role Phone Lidya Beltran Primary Care Provider Unavailable Reason for Referral Diagnostic Imaging Ultrasound - Closed Specialty Diagnoses / Procedures Referred By Contact Refer red To Contact Diagnoses BMI 45.0-49.9, adult (H) Ur Maternal Med Procedures [facility] US Comprehensive Single F/U [address] [place], [place] [address] Referral ID Status Reason Start Date Expiration Date Visits Requ ested Visits Authorized [id number] Closed 08/31/2018 08/31/2019 1 1 R COVERING INSTALLER Reason for Visit Reason Comments Ultrasound Echo/RL2-suboptimal vi ews on previous US Encounter Details Date Type Department Care Team Description 08/31/2018 Office Visit [facility] Qiuque Cooper MD [address] [address] Hx of pre-eclampsia in prior , currently (Primary Dx); Maternal Steffi Zuniga DO [address] [facility] [address] [place] [address] BMI 45.0-49.9, adult (H) [facility] [address] [place], [place] [address] Social History Tobacco Use Types Packs/Day Years [...] documented as of this encounter Progress Notes Steffi Zuniga DO - 08/31/2018 2:45 PM CST Please see Imaging tab under Chart Review for details of today's US. Steffi Zuniga DO R COVERING INSTALLER documented in this encounter Plan of Treatment Not on filedocumented as of this encounter Results [facility] US Comprehensive Single F/U (09/21/2018 10:59 AM FLOOR COVERING INSTALLER) Anatomical Region Laterality Modality Ultrasound Specimen (Source) Anatomical Collection Method Collection Time Re ceived Time Location / / Volume Laterality 09/21/2018 10:32 AM FLOOR COVERING INSTALLER Impressions 09/21/2018 1:52 PM FLOOR COVERING INSTALLER IMPRESSION 1) Sorensen intrauterine at 2 9 [...] at this time. Narrative 09/21/2018 1:52 PM FLOOR COVERING INSTALLER Comp Follow Up Pat. Name: NORAH RODRIGUEZ Study Date: 09/21/2018 10:32am Pat. NO: [id number] Referring ??MD: CHASIDY BELTRAN Site: [facility] Correspondence School Teacher: Hanna Smith RDMS : 1990 Age: 28 [...] 2 lb 7 ?oz EFW by ?Hadlock ([id number]) ANATOMY The following structures appear normal: Head [...] that she deliver by repeat C/S between [id number] previously. If delivered at < 37w0d, she [...] Will contact office of primary OB in [place] today to determine if they are planning transfer of care to a [place] provider, as the patient stat es that she believes that she has been told to deliver at [facility] due to need for late /early term delivery by C/S and due to recommendation by pediatric cardi ology that she have a echo in first 48 hours of life (unable to complete cardiac assessment with MFM or pediatric cardiology. Procedure Note Luis F Foley MD - 09/21/2018Form atting of this note might be different from the original. Comp Follow Up Pat. Name:Nirav RODRIGUEZ te:09/21/2018 10:32am Pat. NO: [id number] MD:LIDYA BELTRAN [facility] Maddox :1990Age:28 INDICATION History of x 4 [...] 1d Hadlock Humerus 48.3 mm 28w 3d [facility] Weight Calculation: EFW 1,118 g 31% Truman EFW (lb,oz) 2 lb 7 oz EFW by Hadlock ([id number]) ANATOMY The following structures appear normal: Head [...] that she deliver by repeat C/S between [id number] previously. If delivered at < 37w0d, she [...] Will contact office of primary OB in [place] today to determine if they are planning transfer of care to a [place] provider, as the patient stat es that she believes that she has been told to deliver at [facility] due to need for late /early term delivery by C/S and due to recommendation by pediatric cardi ology that she have a echo in first 48 hours of life (unable to complete cardiac assessment with MFM or pediatric cardiology. IMPRESSION 1) Sorensen intrauterine [...] at this time. Steffi Zuniga DO IMG MFM US ORDERABLES documented in this encounter Visit Diagnoses Diagnosis Hx of pre-eclampsia in prior , currently - Primary with other poor obstetric hist ory BMI 45.0-49.9, adult (H) Body Mass Index 45.0-49.9, adult BMI 45.0-49.9, adult (H) Body Mass Index 45.0-49.9, adult documented in this encounter Care Teams Floor Runner Relationship Specialty Start Date End Date Lidya Beltran PCP - General forest and conservation worker 07/13/18 documented as of this encounter
--- OUTSIDE RECORDS SUMMARY | 2022-07-09 20:38 | XMS_ITS | Encounter Summary ---
:1990 Author Organization [facility] Address [address] [place] [address]. [place] [address] Care Team Providers Name Role Phone Lidya Hanson Primary Care Provider Unavailable Encounter Details Date Type Department Care Team Description 11/08/2018 Hospital Encounter [facility] Sue Her Pre -operative Luna Esparza MD laboratory [address] ALTERATION WORKER examination [place], [place] [facility] [phone] 1955 [facility] [phone] [place], [place] [address] Social History Tobacco Use Types Packs/Day Years [...] Name Priority Date/Time Associated Diagnosis Comme nts BLOOD COMPONENT Routine 11/08/2018 10:08 Pre-operative Results for this AM DOCUMENT CONTROL ASSOCIATE laboratory procedure are i n examination the results section. BLOOD COMPONENT Routine 11/08/2018 10:08 Pre-operative Results for this AM DOCUMENT CONTROL ASSOCIATE laboratory procedure are i n examination the results section. HEMOGLOBIN Routine 11/08/2018 10:08 Pre-operative Results fo r this AM DOCUMENT CONTROL ASSOCIATE laboratory procedure are i n examination the results section. ABO/RH TYPE AND Routine 11/08/2018 10:08 Pre-operative Results for this SCREEN AM DOCUMENT CONTROL ASSOCIATE laboratory procedure are i n examination the results section. documented in this encounter Results Blood component (11/08/2018 10:08 AM DOCUMENT CONTROL ASSOCIATE) [facility] gist Method Time Signature Unit Number [id number] 11/09/2018 [facility] 9:57 AM [facility] Blood Red Blood 11/09/2018 [facility] Component Cells 9:57 AM [facility] Leukocyte HOSPITAL Reduced Division 00 11/09/2018 [facility] Number 9:57 AM [facility] Status of No longer 11/12/2018 [facility] Unit available 3:00 AM [facility] 11/12/2018 HOSPITAL 0300 Blood Product [id number] 11/09/2018 [facility] Code 9:57 AM [facility] Unit Status [facility] Specimen Anatomical Collection Method Collection Time Receive d Time (Source) Location / / Volume Laterality 11/08/2018 10:08 11/08/2018 AM DOCUMENT CONTROL ASSOCIATE 10:09 AM DOCUMENT CONTROL ASSOCIATE Sue Her MD LABORATORY Performing Organization Address City/State/ZIP Code Phon e Number [place] [address] [place], [place] [address] [facility] [address] [place], [place] [address], [facility] [phone] Blood component (11/08/2018 10:08 AM DOCUMENT CONTROL ASSOCIATE) [facility] Method Time Signature Unit Number [id number] 11/09/2018 [facility] 9:57 AM [facility] Blood Red Blood 11/09/2018 [facility] Component Cells 9:57 AM [facility] Leukocyte HOSPITAL Reduced Division 00 11/09/2018 [facility] Number 9:57 AM [facility] Status of No longer 11/12/2018 [facility] Unit available 3:00 AM [facility] 11/12/2018 HOSPITAL 0300 Blood Product [id number] 11/09/2018 [facility] Code 9:57 AM [facility] Unit Status [facility] Specimen Anatomical Collection Method Collection Time Receive d Time (Source) Location / / Volume Laterality 11/08/2018 10:08 11/08/2018 AM DOCUMENT CONTROL ASSOCIATE 10:09 AM DOCUMENT CONTROL ASSOCIATE Sue Her MD LABORATORY Performing Organization Address City/State/ZIP Code [facility] e [facility] [address] [place], [place] [address] [facility] [address], [place] [address], [facility] [phone] ABO/Rh type and screen (11/08/2018 10:08 AM DOCUMENT CONTROL ASSOCIATE) [facility] Time Signature Units Ordered 2 11/09/2018 [facility] 9:57 AM [facility] ABO O 11/08/2018 [facility] 10:53 AM [facility] RH(D) Pos [facility] Antibody Neg 11/08/2018 [facility] Screen 10:53 AM [facility] Test Valid [place] 11/08/2018 [facility] Only At [facility] 10:39 AM [facility] Specimen 11/11/2018 11/08/2018 [facility] Expires 10:39 AM [facility] Crossmatch Red Blood 11/09/2018 [facility] Cells 9:57 AM [facility] Specimen Anatomical Collection Method Collection Time Receive d Time (Source) Location / / Volume Laterality Blood specimen 11/08/2018 10:08 9 (specimen) AM DOCUMENT CONTROL ASSOCIATE 10:09 AM DOCUMENT CONTROL ASSOCIATE Sue Her MD LAB - BLOOD BANK TEST ORDER Performing Organization Address City/State/ZIP [facility] Phon e Number M [facility] [address] [place], [place] [address] [place] [address] [address] [place], [place] [address], [facility] [phone] Hemoglobin (11/08/2018 10:08 AM DOCUMENT CONTROL ASSOCIATE) athologist Signature Hemoglobin 12.6 11.7 - 15.7 11/08/2018 [facility] g/dL 10:11 AM DOCUMENT CONTROL ASSOCIATE HOSPITAL Specimen Anatomical Collection Method Collection Time Receive d Time (Source) Location / / Volume Laterality Blood specimen 11/08/2018 10:08 9 (specimen) AM DOCUMENT CONTROL ASSOCIATE 10:09 AM DOCUMENT CONTROL ASSOCIATE Sue Her MD LAB - BLOOD ORDERABLES Performing Organization Address City/[facility]/ZIP [facility] Phon e Number M [facility] [address] [place], [place] [address] [facility] [address] [place], [place] [address], [facility] [phone] documented in this encounter Visit Diagnoses Diagnosis Pre-operative laboratory examination Pre-procedural laboratory examination documented in this encounter Care Teams Pad Machine Operator Relationship Specialty Start Date End Date Lidya Hanson PCP - General degreaser operator 07/13/18 documented as of this encounter
--- OUTSIDE RECORDS SUMMARY | 2022-07-09 20:38 | XMS_ITS | Encounter Summary ---
:1990 Author Organization [place] Address [address] [place] [address]. [place] [address] Care Team Providers Name Role Phone Lidya Beltran Primary Care Provider Unavailable Reason for Referral - Closed Specialty Diagnoses / Procedures Referred By Contact Refer red To Contact Cardiology Diagnoses History of poor growth Hx of pre-eclampsia in prior , currently Obesity affecting in second trimester Rh Maternal Med Zz Ur Peds Echo Lab Procedures Echo Complete-Peds Cardiology [address] [facility] [address] [place] [address] [place] [address] Referral ID Status Reason Start Date Expiration Date Visits Requ ested Visits Authorized [id number] Closed 08/05/2018 08/05/2019 1 1 CULTURAL TECHNICAL OFFICER Diagnostic Imaging Ultrasound - Closed Specialty Diagnoses / Procedures Referred By Contact Refer red To Contact Diagnoses History of poor growth Hx of pre-eclampsia in prior , currently Obesity affecting in second trimester Rh Maternal Med Procedures MFM US Comprehensive Single F/U [address] [place] [address] Referral ID Status Reason Start Date Expiration Date Visits Requ ested Visits Authorized [id number] Closed 08/05/2018 08/05/2019 1 1 CULTURAL TECHNICAL OFFICER Reason for Visit Reason Comments Ultrasound RL2: suboptimal anatomy, hx of preeclampsia with severe features, hx of FGR Encounter Details Date Type Department Care Team Description 08/05/2018 Office Visit [facility] Katie Wang DO [address] [place], [place] [address] Suspected anomaly, antepartum, sin gle or unspecified fetus (Primary Dx); Maternal Glen Cooper MD [address] [place] [address] History of poor growth; [facility] Hx of pre-ec lampsia in prior , currently ; Howe Obesity affecting in second trimester [address] [facility] [address] [place] [address] Social History Tobacco Use Types [...] documented as of this encounter Progress Notes Glen Cooper MD - 08/05/2018 8:30 AM CST Please see Imaging tab under Chart Review for details of today's US at the [facility]. Glen Cooper MD Maternal- Medicine CULTURAL TECHNICAL OFFICER documented in this encounter Plan of Treatment Not on filedocumented as of this encounter Results [facility] US Comprehensive Single F/U (08/31/2018 2:39 PM AGRICULTURAL TECHNICAL OFFICER) Anatomical Region Laterality Modality Ultrasound Specimen (Source) Anatomical Collection Method Collection Time Re ceived Time Location / / Volume Laterality 08/31/2018 2:11 PM AGRICULTURAL TECHNICAL OFFICER Impressions 08/31/2018 4:00 PM AGRICULTURAL TECHNICAL OFFICER IMPRESSION 1) Intrauterine at 26 0/7 week s gestational age in the Breech presentation. 2) The visualized anatomy appears normal. The ultrasound is limited due to maternal body habitus. 3) Growth parameters and estimated weight were consistent with an appropriate for gestation age pattern of growth. 4) The amniotic fluid volume appeared no rmal. Narrative 08/31/2018 4:00 PM AGRICULTURAL TECHNICAL OFFICER Comp Follow Up Pat. Name: NORAH RODRIGUEZ Study Date: 08/31/2018 2:11pm Pat. NO: [id number] Referring ??MD: CHASIDY BELTRAN Site: [facility] Rn Radiation Oncology: Rula Roberts : 1990 Age: 28 INDICATION History of x 4, BMI >40, decli javier aneuploidy screening, Suboptimal heart views on prior ultrasounds (normal peds cardiology echo today) METHOD Transabdominal ultrasound examination. V iew: Sufficient Kraus . Number of fetuses: 1 DATING ? [...] Biometry: BPD ?64.7 ?mm ? 26w 1d ?Toribio BENAVIDES ?80.4 ?mm ? 24w 2d ?Nicolaides HC ?233.1 ?mm ?25w 2d ?Hadlock Cerebellum tr ?29.5 ? mm ?26w 2d ?Nicolaides AC ?203.9 ?mm ?25w 0d ?Hadlock Femur ?44.5 ? mm ?24w 5d ?Hadlock Humerus ?42.7 ?mm ? 25w 4d ?Marci Weight Calculation: EFW ? 755 ? g ? 31% ?Truman EFW (lb,oz) ? 1 lb 11 ? oz EFW by ?Hadlock ([id number]) Head / Face / Neck Biometry: Bottom Buffer ? 3.5 ? mm Nasal bone ? [...] DO - 08/31/2018 Comp Follow Up Pat. Name:Nirav RODRIGUEZ te:08/31/2018 2:11pm Pat. NO: [id number] MD:LIDYA BELTRAN [facility]Yakelin Mayer RDMS :1990Age:28 INDICATION History of x 4, BMI >40, decli javier aneuploidy screening, Suboptimal heart views on prior ultrasounds (normal peds cardiology echo today) METHOD Transabdominal ultrasound examination. V iew: Sufficient Kraus . Number of fetuses: 1 DATING Date [...] 1 lb 11 oz EFW by Hadlock ([id number]) Head / Face / Neck Biometry: Bottom Buffer 3.5 mm Nasal bone 8.9 mm ANATOMY [...] The amniotic fluid volume appeared no rmal. [facility] Echo Complete-Peds Cardiology (08/31/2018 1:53 PM AGRICULTURAL TECHNICAL OFFICER) Anatomical Region Laterality Modality Ultrasound Specimen (Source) Anatomical Collection Method Collection Time Re ceived Time Location / / Volume Laterality 08/31/2018 1:14 PM AGRICULTURAL TECHNICAL OFFICER Narrative 08/31/2018 2:16 PM AGRICULTURAL TECHNICAL OFFICER [id number]^DENNISE^GLEN^ABIGAIL ?Study ID: [id number] ?[facility] ?[facility] ?[address] ?[place] [address] ? Echocardiogram __ Name: NORAH RODRIGUEZ Study Date: 08/31/2018 01:14 PM ? Patient Location: [facility] Gender: Female ?Patient Class: Outpatient : 1990 ? Age: 28 yrs Ordering Provider: GLEN COOPER Referring Provider: LIDYA BELTRAN Performed By: Sabina Mera, [facility] Reading Physician: Patsy Miramontes Reason For Study: [...] the left atriu m. There is laminar [id number]-khlg shunting across the foramen ovale. Atrioventricular valves: [...] note might be different from the original. [id number] [facility] [id number]^DENNISE^GLEN^ABIGAIL Study ID: [id number] [facility] [address] [address] Echocardiogram __ Name: NORAH RODRIGUEZ Study Date: 08/31/2018 01:14 PM Patient Location: [facility] Gender: Female Patient Class: Outpatient : 1990 Age: 28 yrs Ordering Provider: GLEN COOPER Referring Provider: LIDYA BELTRAN Performed By: Sabina Mera [facility] Reading Physician: Patsy Miramontes Reason For Study: [...] the left atriu m. There is laminar mpynv-rc-phso shunting across the foramen ovale. Atrioventricular valves: [...] Hayley Bragg MD 08/31/2018 02:16 PM Glen Cooper MD CV PEDS ECHO ORDERABLES documented in this encounter Visit Diagnoses Diagnosis Suspected anomaly, antepartum, sin gle or unspecified fetus - Primary History of poor growth Personal history of problems Hx of pre-eclampsia in prior , currently with other poor obstetric hist ory Obesity affecting in second tr imester History of poor growth Personal history of problems Hx of pre-eclampsia in prior , currently with other poor obstetric hist ory Obesity affecting in second tr imester History of poor growth Personal history of problems Hx of pre-eclampsia in prior , currently with other poor obstetric hist ory Obesity affecting in second tr imester documented in this encounter Care Teams Ged Preparation Teacher Relationship Specialty Start Date End Date Lidya Beltran PCP - General pull socket assembler 07/13/18 documented as of this encounter
--- OUTSIDE RECORDS SUMMARY | 2022-07-09 20:38 | XMS_ITS | Encounter Summary ---
:1990 Author Organization [place] Address [address] [facility] [address] Care Team Providers Name Role Phone Lidya Beltran Primary Care Provider Unavailable Reason for Referral Diagnostic Imaging Ultrasound - Closed Specialty Diagnoses / Procedures Referred By Contact Refer red To Contact Diagnoses Hx of pre-eclampsia in prior , currently BMI 45.0-49.9, adult (H) History of classical section Luis F Foley MD Procedures [facility] US Comprehensive Single F/U [address] [place], [place] [address] Referral ID Status Reason Start Date Expiration Date Visits Requ ested Visits Authorized [id number] Closed 09/21/2018 09/21/2019 1 1 ERAGE CLERK Reason for Visit Reason Comments Ultrasound obesity Encounter Details Date Type Department Care Team Description 09/21/2018 Office Visit [facility] Maria Ines Zuniga DO [address] [place] [address] Hx of pre-eclampsia in prior , currently (Primary Dx); Maternal Luis F Foley MD [address] [place] [address] BMI 45.0-49.9, adult (H); Medicine Center History of c lassical section [place] [address] [facility] [address] [place] [phone] Social History Tobacco Use Types Packs/Day Years [...] documented as of this encounter Progress Notes Luis F Foley MD - 09/21/2018 10:45 AM CST Please see full imaging report from ViewPoint program under imaging tab. Findings reviewed with Norah today. She has had four prior C/S, including a classical C/S, and it has been recommended that she deliver by repeat C/S between [id number] previously. If delivered at < 37w0d, she should have late steroid course given in the 2-3 days prior to her C/S. She indicates that she was told that we could do a hysterectomy at the time of her C/S since she has been told that she should not get again and a tubal ligation doesn't always work - states this is what her friend had done. Explained that we do not recommend a hysterectomy for permanent contraception given the increased risk of performing this procedure at the time of C/S. I have recommended that she sign tubal consent forms with her primary OB as I do not recommend further pregnancies since this will be her 5th C/S. She states she is interested in permanent contraception. Did review risk of accreta due to many C/S, including one classical, and now anterior placenta. We will reassess ranjit jasso at her follow up MFM US in 3-4 weeks. Will contact office of primary OB in [place] today to determine if they are planning transfer of care to a [place] provider, as the patient states that she believes that she has been told to deliver at [facility] due to need for late /early term delivery by C/S and due to recommendation by pediatric cardiology that she have a echo in first 48 hours of life (unable to complete cardiac assessment with MFM or pediatric cardiology. Luis F Foley MD Maternal Medicine ERAGE CLERK documented in this encounter Plan of Treatment Not on filedocumented as of this encounter Results M US Comprehensive Single F/U (10/19/2018 1:51 PM BROKERAGE CLERK) Anatomical Region Laterality Modality Ultrasound Specimen (Source) Anatomical Collection Method Collection Time Re ceived Time Location / / Volume Laterality 10/19/2018 1:22 PM BROKERAGE CLERK Impressions 10/19/2018 1:56 PM BROKERAGE CLERK IMPRESSION 1) Intrauterine at 33+0 weeks gestational age. 2) None of the anomalies commonly detect ed by ultrasound were evident in the limited anatomic survey described above. 3) Growth parameters and estimated weight were consistent with an appropriate for gestation age pattern of growth. 4) The amniotic fluid volume appeared no rmal. Narrative 10/19/2018 1:56 PM BROKERAGE CLERK Comp Follow Up Pat. Name: NORAH RODRIGUEZ Study Date: 10/19/2018 1:22pm Pat. NO: [id number] Referring ??: CHASIDY BELTRAN Site: [facility] Applications Processor: Hanna Smith RDMS : 1990 Age: 28 [...] 4 lb 1 ?oz EFW by ?Hadlock ([id number]) ANATOMY The following structures appear normal: Head [...] present but not detected Procedure Note Katie Patel DO - 10/19/2018Format ting of this note might be different from the original. Comp Follow Up Pat. Name:Nirav RODRIGUEZ te:10/19/2018 1:22pm Pat. NO: [id number] MD:LIDYA BELTRAN Site:[facility]acharyer:Rula Maddox :1990Age:28 INDICATION History of x 4 [...] 4 lb 1 oz EFW by Hadlock ([id number]) ANATOMY The following structures appear normal: Head [...] care.. Thank-you for the opportunity to partici santiago [...] The amniotic fluid volume appeared no rmal. Luis F Foley MD [facility] US ORDERABLES documented in this encounter Visit Diagnoses Diagnosis Hx of pre-eclampsia in prior , currently - Primary with other poor obstetric hist ory BMI 45.0-49.9, adult (H) Body Mass Index 45.0-49.9, adult History of classical section Hx of pre-eclampsia in prior , currently with other poor obstetric hist ory BMI 45.0-49.9, adult (H) Body Mass Index 45.0-49.9, adult History of classical section documented in this encounter Care Teams Delicatessen Department Manager Relationship Specialty Start Date End Date Lidya Beltran PCP - General womens health nurse practitioner 07/13/18 documented as of this encounter
--- OUTSIDE RECORDS SUMMARY | 2022-07-09 20:39 | XMS_ITS | Encounter Summary ---
:1990 Author Organization [place] Address [facility] [place] [address] Care Team Providers Name Role Phone Lidya Beltran Primary Care Provider Unavailable Tate Ibrahim CONTROLLED ATMOSPHERIC FURNACE BRAZER Unavailable Reason for Referral Diagnostic Imaging Ultrasound - Closed Specialty Diagnoses / Procedures Referred By Contact Refer red To Contact Diagnoses related condition, antepartum Lidya Beltran Procedures [facility] [address] [place] [address] Referral ID Status Reason Start Date Expiration Date Visits Requ ested Visits Authorized [id number] Closed 07/11/2018 07/11/2019 1 1 - Closed Specialty Diagnoses / Procedures Referred By Contact Refer red To Contact Diagnoses related condition, antepartum Lidya Beltran [address] [place] [address] Referral ID Status Reason Start Date Expiration Date Visits Requ ested Visits Authorized [id number] Closed 07/11/2018 07/11/2019 1 1 Encounter Details Date Type Department Care Team Description 07/11/2018 Orders Only [facility] Valentin, related Maternal Lidya Meier condition, antepartum Medicine Center [address] (Primary Dx) [place], [place] [address] [facility] [address] [address] [place] [address] Social History Tobacco Use Types [...] as of this encounter Plan of Treatment Scheduled Referrals Name Type Priority Associated Diagnoses Order [facility] Referral Routine related Order ed: 07/11/2018 REFERRAL- condition, antepartum documented as of this encounter Results [facility] US Comprehensive Single (07/13/2018 11:40 AM CDT) Anatomical Region Laterality Modality Ultrasound Specimen (Source) Anatomical Collection Method Collection Time Re ceived Time Location / / Volume Laterality 07/13/2018 10:17 AM CDT Impressions 07/13/2018 1:41 PM CDT IMPRESSION 1) Intrauterine at 19+0 weeks gestational age. 2) Hypoplastic nasal bone. None of the a nomalies commonly detected by ultrasound were evident in the detailed anatomic survey described above. Suboptimal cardiac, feet and spine views. 3) Growth parameters and estimated weight were consistent with an appropriate for gestation age pattern of growth. 4) The amniotic fluid volume appeared no rmal. 5) Anterior placenta. Narrative 07/13/2018 1:41 PM CDT Comprehensive Pat. Name: NORAH RODRIGUEZ Study Date: 07/13/2018 10:17am Pat. NO: [id number] Referring ??MD: CHASIDY BELTRAN Site: [facility] Plate Glass Installer Helper: Jerica Gaitan RD MS : 1990 Age: 28 INDICATION History of x 4, obesity, decli javier aneuploidy screening. METHOD Transabdominal ultrasound examination. V iew: Sufficient Sorensen . Number of fetuses: 1 DATING ? Date ?Details ?Gest. age ?LESLEY Prior assessment ? 7/ ? GA: 6 w + 1 d ?19 w + 0 d ? 12/07/2018 U/S ? 07/13/2018 ? based upon AC, BPD, Femur, HC ?19 w + 1 d ? 12/06/2018 Assigned dating ?Dating performed on 07/13/2018, based on the prior assessment (on 04/14/2018) ? 19 w + 0 d ? 12/07/2018 GENERAL EVALUATION Cardiac activity present. FHR 130 bpm. movements present. Presentation cephalic. Placenta anterior, no previa . Umbilical cord 3 vessel cord. Amniotic fluid Amount of AF: normal. MVP 4.1 cm. ELOINA 13.6 cm. Q1 3.0 cm, Q2 3.7 cm, Q3 4.1 cm, Q4 2.8 cm. BIOMETRY Main Biometry: BPD ?43.8 ?mm ? 19w 2d ?Hadlock OFD ?57.9 ?mm ? 19w 0d ?Nicolaides HC ?165.5 ?mm ?19w 2d ?Hadlock Cerebellum tr ?20.2 ? mm ?19w 1d ?Nicolaides AC ?134.3 ?mm ?18w 6d ?Hadlock Femur ?29.1 ? mm ?19w 0d ?Hadlock Humerus ?29.4 ?mm ? 19w 4d ?Marci Weight Calculation: EFW ? 267 ? g EFW (lb,oz) ? 0 lb 9 ?oz EFW by ?Hadlock ([id number]) Head / Face / Neck Biometry: Crisis Mental Health Therapist ? 6.6 ? mm CM ?4.4 ? mm Nasal bone ? 4.8 ? mm Nuchal fold ? 5.0 ? mm ANATOMY The following structures appear normal: Head / Neck ? Cranium. Head size. Head shape. Lateral ventricles. Choroid plexus. Midline falx. Cavum septi pellucidi. Cerebellum. Cisterna magna. ? Parenchyma. Thalami. Vermis. ? Neck. Nuchal fold. Face ? Lips. Profile. Nose. Maxilla. Mandible. Orbits. Lens. Heart / Thorax ?4-chamber view. RVOT view. LVOT view. Situs. Ductal arch view. Superior vena cava. Inferior vena cava. 3-vessel view. Cardiac position. ? Cardiac size. Cardiac rhythm. ? Right lung. Left lung. Diaphragm. Abdomen ? Abdominal wall. Cord insertion. Stomach. Kidneys. Bladder. Liver. Bowel. Genitals. Spine ?Cervical spine. Thoracic spine. Extremities / Skeleton ?Rig ht hand. Left hand. The following structures could not be ad equately visualized: Heart / Thorax ?Aortic arch view. Bicaval view. 7-wwegel-dgjmwor view. Spine ?Lumbar spine. Sacral spine. Extremities / Skeleton ?Rig ht foot. Left foot. Gender: male. MATERNAL STRUCTURES Cervix ?Visualized ? Appearance: Appears Closed Right Ovary ?Not visualized Left Ovary ?Visualized RECOMMENDATION We discussed the findings on today's ult rasound with the patient. We discussed the finding of a hypoplasti c nasal bone on today's ultrasound. This finding is associated with Down syndrome with an associated relative risk of 20.1, making her risk 1/49. We discussed the availabi lity of NIPT screening versus amniocentesis for the precise diagnosis of chromosomal abnormalities including the associated procedure-related risk of loss of 1/500. At this time she is interested in proceeding with NIPT screening, but cannot stay today to have this drawn. She would like to schedule a genetic counseling apporti onment and blood draw at her next visit in 2-3 weeks when we reevaluate cardiac, feet and spine views which were suboptimally seen today. She would not b e interested in termination if testing results were positive. We also discussed the risks of placenta accreta given her anterior placenta and history of 4 prior c-sections, including a classical with her last . At this time there was no evidence of placenta a ccreta on today's ultrasound, but she was counseled that this does not preclude the risk and we recommend this is closely followed every 4 weeks throughout pregna ncy. She was counseled on risks including hemorrhage and potential need for c-hysterectomy at the time of delivery is an accreta is present. Given her prior classical c- section delivery is recommended at 36-37 weeks gestation and potentially earlier if concerns for accreta arise. Growth ultrasounds are also recommended every 4 weeks given a p rior history of growth restriction. She is taking a daily ASA to help reduce her risk of recurrent preeclampsia, which required delivery 32 weeks in her last . Return to primary provider for continued care., Thank-you for the opportunity to partici jack in the care of this patient. If you have questions regarding today's evaluation or if we can be of further service, please contact the Maternal[facility] Medicine Center. anomalies may be present but not detected Procedure Note Katie Patel, - 07/13/2018Format ting of this note might be different from the original. Comprehensive Pat. Name:Nirav RODRIGUEZ te:07/13/2018 10:17am Pat. NO: [id number] MD:LIDYA BELTRAN Site:Marniegrapher:Jerica Gaitan RDMS :1990Age:28 INDICATION History of x 4, obesity, decli javier aneuploidy screening. METHOD Transabdominal ultrasound examination. V iew: Sufficient Sorensen . Number of fetuses: 1 DATING Date Details Gest. age LESLEY Prior assessment 04/14/2018 GA: 6 w + 1 d 19 w + 0 d 12/07/2018 U/S 07/13/2018 based upon AC, BPD, Femur , HC 19 w + 1 d 12/06/2018 Assigned dating Dating performed on 06/27, based on the prior assessment (on 04/14/2018) 19 w + 0 d 12/07/2018 GENERAL EVALUATION Cardiac activity present. FHR 130 bpm. movements present. Presentation cephalic. Placenta anterior, no previa . Umbilical cord 3 vessel cord. Amniotic fluid Amount of AF: normal. MVP 4.1 cm. ELOINA 13.6 cm. Q1 3.0 cm, Q2 3.7 cm, Q3 4.1 cm, Q4 2.8 cm. BIOMETRY Main Biometry: BPD 43.8 mm 19w 2d Hadlock OFD 57.9 mm 19w 0d Nicolaides HC 165.5 mm 19w 2d Hadlock Cerebellum tr 20.2 mm 19w 1d Nicolaides AC 134.3 mm 18w 6d Hadlock Femur 29.1 mm 19w 0d Hadlock Humerus 29.4 mm 19w 4d Marci Weight Calculation: EFW 267 g EFW (lb,oz) 0 lb 9 oz EFW by Hadlock ([id number]) Head / Face / Neck Biometry: Crisis Mental Health Therapist 6.6 mm CM 4.4 mm Nasal bone 4.8 mm Nuchal fold 5.0 mm ANATOMY The following structures appear normal: Head / Neck Cranium. Head size. Head sha pe. Lateral ventricles. Choroid plexus. Midline falx. Cavum septi pellucidi. Cerebellum. Cisterna magna. Parenchyma. Thalami. Vermis. Neck. Nuchal fold. Face Lips. Profile. Nose. Maxilla. Latricia ble. Orbits. Lens. Heart / Thorax 4-chamber view. RVOT view . LVOT view. Situs. Ductal arch view. Superior vena cava. Inferior vena cava. 3-vessel view. Cardiac position. Cardiac size. Cardiac rhythm. Right lung. Left lung. Diaphragm. Abdomen Abdominal wall. Cord insertion. Stomach. Kidneys. Bladder. Liver. Bowel. Genitals. Spine Cervical spine. Thoracic spine. Extremities / Skeleton Right hand. Left hand. The following structures could not be ad equately visualized: Heart / Thorax Aortic arch view. Bicaval view. 0-vgeuxm-rcgvqsp view. Spine Lumbar spine. Sacral spine. Extremities / Skeleton Right foot. Left foot. Gender: male. MATERNAL STRUCTURES Cervix Visualized Appearance: Appears Closed Right Ovary Not visualized Left Ovary Visualized RECOMMENDATION We discussed the findings on today's ul rasound with the patient. We discussed the finding of a hypoplasti c nasal bone on today's ultrasound. This finding is associated with Down syndrome with an associated relative risk of 20.1, making her risk 49. We discussed the availabi lity of NIPT screening versus amniocentesis for the precise diagnosis of chromosomal abnormalities including the associated procedure-related risk of loss of . At this time she is interested in proceeding with NIPT screening, but cannot stay today to have this drawn. She would like to schedule a genetic counseling apporti onment and blood draw at her next visit in 2-3 weeks when we reevaluate cardiac, feet and spine views which were suboptimally seen today. She would not b e interested in termination if testing results were positive. We also discussed the risks of placenta accreta given her anterior placenta and history of 4 prior c-sections, including a classical with her last . At this time there was no evidence of placenta a ccreta on today's ultrasound, but she was counseled that this does not preclude the risk and we recommend this is closely followed every 4 weeks throughout pregna ncy. She was counseled on risks including hemorrhage and potential need for c-hysterectomy at the time of delivery is an accreta is present. Given her prior classical c- section delivery is recommended at 36-37 weeks gestation and potentially earlier if concerns for accreta arise. Growth ultrasounds are also recommended every 4 weeks given a p rior history of growth restriction. She is taking a daily ASA to help reduce her risk of recurrent preeclampsia, which required delivery 32 weeks in her last . Return to primary provider for continued care., Thank-you for the opportunity to partici santiago in the care of this patient. If you have questions regarding today's evaluation or if we can be of further service, please contact the Maternal- Medicine Center. anomalies may be present but not detected IMPRESSION 1) Intrauterine at 19+0 weeks gestational age. 2) Hypoplastic nasal bone. None of the a nomalies commonly detected by ultrasound were evident in the detailed anatomic survey described above. Suboptimal cardiac, feet and spine views. 3) Growth parameters and estimated weight were consistent with an appropriate for gestation age pattern of growth. 4) The amniotic fluid volume appeared no rmal. 5) Anterior placenta. Lidya Beltran [facility] US ORDERABLES documented in this encounter Visit Diagnoses Diagnosis related condition, antepartum - Primary related condition, antepartum documented in this encounter Care Teams Video Producer Relationship Specialty Start Date End Date Lidya Beltran PCP - General poultry farm supervisor 07/13/18 Tate Ibrahim LSW Lead Ore Storage Drier Primary Care - CC 01/09/19 05/15/19 documented as of this encounter
--- OUTSIDE RECORDS SUMMARY | 2022-07-09 20:39 | XMS_ITS | Encounter Summary ---
:1990 Author Organization [facility] Address [address] [place] [address] Care Team Providers Name Role Phone Unavailable Primary Care Provider Unavailable Encounter Details Date Type Department Care Team Description 06/18/2021 Clinical Communication Department of Bayron Lomeli, Radiology, Anup Alexis [facility], in [address] [place] [address] [place] [id number] [place], [place] [phone] (Work) [phone] Social History Tobacco Use Types Packs/Day Years Used Date Smoking Tobacco: Never Smokeless Tobacco: Never Alcohol Use Standard Drinks/Week Comments No 0 (1 standard drink = 0.6 oz pure alcoho l) Alcohol Habits Answer Date Recorded How often do you have a drink containing alcohol? Never 06/25/2021 How many drinks containing alcohol do you have on a typical Not asked day when you are drinking? How often do you have six or more drinks on one occasion? No t asked Comment: Not asked Social Isolation Answer Date Recorded In a typical week, how many times do you More than three dionicio es a week 06/25/2021 talk on the phone with family, friends, or neighbors? How often do you get together with friends More than three t imes a week 06/25/2021 or relatives? How often do you attend gnosticism or Never 2020 restorationism services? Do you belong to any clubs or No 06/25/2021 organizations such as gnosticism groups, unions, fraternal or athletic groups, or school groups? How often do you attend meetings of the Never 06/25/2021 clubs or organizations you belong to? Are you now , , , 06/25/2021 , never or living with a partner? Physical Activity Answer Date Recorded On average, how many days per week do you engage in moderate to 7 days 06/25/2021 strenuous exercise (like walking fast, running, jogging, dancing, swimming, biking, or other activities that cause a light or heavy sweat)? On average, how many minutes do you engage in exercise at th is 50 min 06/25/2021 level? Stress Answer Date Recorded Do you feel stress - tense, restless, nervous, or anxious, o r Very much 06/25/2021 unable to sleep at night because your mind is troubled all the time - these days? Financial Resource Strain Answer Date Recorded How hard is it for you to pay for the very basics like Somew hat hard 06/25/2021 food, housing, medical care, and heating? Food Insecurity Answer Date Recorded Within the past 12 months, you worried that your food would Never true 06/25/2021 run out before you got money to buy more. Within the past 12 months, the food you bought just didn't N ever true 06/25/2021 last and you didn't have money to get more. Transportation Needs Answer Date Recorded In the past 12 months, has lack of transportation kept you f rom No 06/25/2021 medical appointments or from getting medications? In the past 12 months, has lack of transportation kept you f rom No 06/25/2021 meetings, work, or getting things needed for daily living? Housing Stability Answer Date Recorded In the last 12 months, was there a time when you were not ab le Yes 06/25/2021 to pay the mortgage or rent on time? In the last 12 months, how many places have you lived? 1 06/25/2021 In the last 12 months, was there a time when you did not hav e a No 06/25/[address] or slept in a longterm (including now)? Sex Assigned at Date Recorded Female 04/12/2018 10:21 PM CDT documented as of this encounter Plan of Treatment Not on filedocumented as of this encounter Visit Diagnoses Not on filedocumented in this encounter Additional Health Concerns Infection Onset Date Last Indicated Resolved Time COVID19 Pending 06/16/2021 06/17/2021 06/18/2021 3:24 AM CDT Assessment Noted Time PHQ-9 Depression Total Score: 1 11/16/2012 11:45 AM CS T documented as of this encounter
--- OUTSIDE RECORDS SUMMARY | 2022-07-09 20:39 | XMS_ITS | Clinical Summary ---
:1990 Author Organization [facility] [place] [address] Care Team Providers Name Role Phone ChristoferPrabhjotZohreh PAPER BUNDLER Primary Care Provider Allergies Active Allergy Reactions Severity Noted Date Comments Cats (Fur, Dander, Saliva) Hives 04/15/2014 Medications Medication Sig Dispensed Refills Start Date End Date Status cetirizine (ZYRTEC) Take 1 tablet 30 tablet 2 05/24/2019 Active 10 mg by mouth once tabletIndications: daily. Seafood allergy sertraline (ZOLOFT) Take 1.5 45 tablet 0 03/07/2020 Active 100 mg tablets by tabletIndications: mouth every Depression, morning. recurrent (HC) cholestyramine-sucr Take 1 Packet 30 Packet 0 04/30/2020 Active ose 4 G (QUESTRAN) by mouth once 4 gram daily. packetIndications: Increase by 1 Chronic diarrhea packet every week as needed for ongoing chronic diarrhea. Maximum 4 packets daily. ondansetron (ZOFRAN Place 1 20 tablet 0 04/30/2020 Active ODT) 4 mg tablet on the disintegrating tongue every tabletIndications: 8 hours if Adenitis needed for Nausea/Vomiti ng. topiramate Take 1 tablet 60 tablet 0 07/15/2020 Acti ve (TOPAMAX) 50 mg by mouth 2 tabletIndications: times daily. Migraine syndrome traMADoL (ULTRAM) Take 1 tablet 12 tablet 0 07/15/2020 Active 50 mg by mouth tabletIndications: every 6 hours Migraine syndrome if needed for Pain. metoclopramide HCl Take 1 tablet 120 tablet 3 07/15/2020 Active (REGLAN) 5 mg by mouth 4 tabletIndications: times daily Viral syndrome, before meals Nausea and and at vomiting, bedtime. intractability of vomiting not specified, unspecified vomiting type venlafaxine Take 75 mg by 0 Acti ve (EFFEXOR) 75 mg mouth. tablet albuterol HFA Inhale 2 1 Each 0 11/25/2020 Activ e (PRO-AIR; VENTOLIN; Puffs by PROVENTIL) 90 mouth every 4 mcg/actuation hours if inhalerIndications: needed (cough Cough, Suspected or wheezing). COVID-19 virus infection amitriptyline Take 1 Tablet 45 Tablet 0 10/13/2021 A ctive (ELAVIL) 25 mg (25 mg) by tabletIndications: mouth at Has run out of bedtime. medications ketorolac (TORADOL) 0 06/13/2021 Active 10 mg tablet fluconazole 150mg PO x1. 2 Tablet 0 03/19/2022 Acti ve (DIFLUCAN) 150 mg Repeat in 3 tabletIndications: days if Vaginal yeast needed. infection ibuprofen (ADVIL; Take 1 tablet 50 tablet 0 05/24/2019 0 Discontinued MOTRIN) 600 mg by mouth 4 22 (*Me d tabletIndications: times daily complete/Regimen Sore throat if needed. complet e/Level Maximum of of care c hange) 3200 mg in 24 hours. amitriptyline Take 1 Tablet 90 Tablet 3 02/03/2021 07/07/20 D iscontinued (ELAVIL) 25 mg (25 mg) by 22 (Dup licate tabletIndications: mouth at t herapy Headache syndrome bedtime. (E -cancel not sent)) doxycycline Take 1 Tablet 14 Tablet 0 06/14/2022 06/21/20 Exp ired (VIBRAMYCIN) 100 mg (100 mg) by 22 tabletIndications: mouth two Acute non-recurrent times daily maxillary sinusitis for 7 days. fluticasone (50 mcg Inhale 1-2 16 g 0 06/14/2022 06/28/20 per actuation) Sprays to 22 nasal solution both nostrils (FLONASE)Indication two times s: Acute daily for 14 non-recurrent days. maxillary sinusitis Active Problems Patient Care Coordination Note Formatting of this note is different fro m the original. Weight Management - Adult Surgical Progr am Patient Received Binder: Yes Part of [facility] Program: no Initial Consult / Established Care [address] 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 Planned Operation [place]-en-Y Gastric Bypa ss Payor: [employer] [place] / Plan: [employer] [place] / Product Type: *No Product type* / Insurance requirements:None Est. Pgm Completion: ~ April, Procedure Location: [facility] Co-morbidities: GERD Orders: Labs Yes Imaging / Procedures GB out 01/08/15 Pre-Surgery Program Consults: - Registered Dietitian 3 - Psychological Evaluation: TBD Referrals: No -Tobacco Cessation: reports that she has never smoked. She has never used smokeless tobacco. Future Appointments Date Time Provider Department Center 01/01/2022 1:00 PM Savanna Gamboa, RD [facility]BW Problem Noted Date Screening for endocrine, metabolic and immunity disord er 11/28/2021 Obesity 11/28/2021 COVID-19 virus infection 10/15/2021 Endometriosis 05/27/2020 Abnormal obstetric ultrasound scan 07/19/2018 Seasonal allergies 07/11/2018 History of prior with intrauterine growth re stricted 04/14/2018 History of renal calculi 01/12/2017 Vitamin D deficiency 06/24/2016 Morbid obesity with BMI of 40.0-44.9, adult 04/20/2016 Complication of , childbirth and [place] 0 03/10/2016 Mixed anxiety depressive disorder 03/10/2016 Overview: Overview: Depression Anxiety Hypovitaminosis D 01/10/2016 Female pelvic peritoneal adhesions 07/05/2014 Adjustment disorder with depressed mood 07/21/2011 Ovarian cyst Resolved Problems Problem Noted Date Resolved Date Poor growth affecting management of mother in third 06/23/2016 trimester Abnormal placenta function test 04/22/2016 06/23/20 16 Poor growth affecting management of mother in third 06/23/2016 trimester Severe pre-eclampsia in third trimester 04/20/2016 06/23/2016 Previous delivery affecting , antepartum 0 04/20/2016 06/23/2016 Overview: Previous C/S (3) with normal appearing p osterior placenta Severe headache 04/20/2016 04/21/2016 Obesity during third trimester, antepartum 04/20/2016 06/23/2016 Overview: BMI = 43 suspected Asymmetric IUGR 04/20/2016 04/21/2016 suspected Oligohydramnios 04/20/2016 04/21/2016 Previous section complicating 06/18/2014 04/20/2016 Kidney stone 12/23/2011 04/20/2016 Supervision of other normal , antepartum 11/26/2009 06/23/2016 Delivered by section 06/23/2016 Encounters Date Type Specialty Care Team Description 2022 Telemedicine Ana Stokes URI (S evere headache, chills, PA nausea, fever 1 00.0 and rash 3 days /) 2022 Travel 07/02/2022 Travel 06/14/2022 Office Visit Yvette Anderson NP Person U nder Investigation (PUI) (Cough, s ore throat, fevers, chest c ongestion, nasal drainage x 1 week) 06/14/2022 Travel from Last 3 Months Immunizations Name Administration Dates Next Due DTaP 07/04/1996, 04/07/1995, 02/04/1995, 02/14/1993, 1992, 1992 HIB PRP-T (ActHIB,Hiberix) 10/17/1993, 02/14/1993, 3, 1992 Hepatitis A (Peds) 08/26/1999, 12/10/1998 Hepatitis A (Peds),Unspecified 08/26/1999, 12/10/1998 Hepatitis B (Peds) 01/05/1996, 03/04/1995, 01/29/1995 Hepatitis B, Unspecified 01/05/1996, 03/04/1995, 01/29/1995 Hib Conjugate, Unspecified 10/17/1993, 02/14/1993, 3, 1992 Human Papilloma Virus Vaccine 11/30/2011, 10/02/2011 Inactivated Polio Vaccine 07/04/1996, 04/07/1995, 02/04/1995 , 1992, 1992 Influenza A (H1N1), Inactivated 08/20/2009 Influenza A (H1N1), Inactivated (Age 1108/20/2009 6-35 Mos) Influenza A (H1N1), Inactivated (Age 1108/20/2009 >=3 Years) Influenza Virus, Unspecified 07/24/2019, 11/03/2017, 016, 08/27/2015, 06/22/2014, 08/31/2012, 07/10/2009 Influenza, IIV3 (Age >=3 years) 08/30/2012, 07/10/2009 Influenza, IIV4 07/23/2020, 07/24/2019, 07/08/2018, 11/03/2017, 06/23/2016, 06/22/2014 MMR 04/25/2016, 06/21/2014, 06/02/2013, 07/04/1996, 10/17/1993 TD, UNSPECIFIED 05/14/2004 Td (Age >=7 Years) 05/14/2004 Tdap 06/22/2014, 05/14/2004 Family History Medical History Relation Name Comments Good Health Brother 1 Good Health Father Diabetes Maternal Grandfather Hypertension Maternal Grandfather Arthritis Maternal Grandmother Diabetes Maternal Grandmother Diabetes Mother Good Health Mother Diabetes Paternal Grandfather Diabetes Paternal Grandmother Good Health Sister 1 Relation Name Status Comments Brother 1 Alive Brother 2 Alive Daughter Alive Father Alive Maternal Grandfather Alive Maternal Grandmother Alive Mother Alive Paternal Grandfather Alive Paternal Grandmother Alive Sister 1 Alive Sister 2 Alive Sister 3 Alive Son 1 Alive Son 2 Alive Son 3 Alive Social History Tobacco Use Types Packs/Day Years Used Date Never Smoker Smokeless Tobacco: Never Used Tobacco Cessation: Counseling Given: Yes Alcohol Use Standard Drinks/Week Comments No 0 (1 standard drink = 0.6 oz pure alcoho l) Alcohol Habits Answer Date Recorded How often do you have a drink containing alcohol? Never 01/30/2019 How many drinks containing alcohol do you have on a typical Not asked day when you are drinking? How often do you have six or more drinks on one occasion? Ne garett 01/30/2019 Comment: Not asked Sex Assigned at Date Recorded Female 05/24/2020 1:28 PM CDT COVID-19 Exposure Response Date Recorded In the last 10 days, have you been in contact with Yes 2022 4:20 AM CDT someone who was confirmed or suspected to have Coronavirus/COVID-19? Obstetrics History Para Term AB IAB SAB Ectopic Multiple Living Live Births 5 4 3 1 0 0 0 0 0 4 4 Date Outcome GA Total Labor/2nd/3rd Weight Sex Delivery Anes PTL Latha A 1 A5 Name Clin Labor 11/26 Term 37w 3.01 kg M Spina Y Chanel /2009 2d (6 lb l ng 10 oz) Comments: System Generated. Please review and update details. 12/30/2012 Term 39w1d 2.83 kg (6 lb M Spinal N Li ving Aponte 4 oz) 06/20/2014 Term 39w0d 2.55 kg (5 lb F Spinal Y Li ving 8 9 AMMY,BG Aponte 10 oz) (NORAH) Delivery Location: [facility] Comments: pelvic adhesions 04/23/2016 33w1d 1.03 M Spinal N Living [address] kg (2 WilianElodia Chun Casiano lb and D r 4.3 Wasso n oz) Last Filed Vital Signs Vital Sign Reading Time Taken Comments Blood Pressure 108/76 06/14/2022 2:28 PM CDT Pulse 84 06/14/2022 2:28 PM CDT Temperature 36.9 ??C (98.5 ??F) 06/14/2022 2:28 PM CDT Respiratory Rate 16 06/14/2022 2:28 PM CDT Oxygen Saturation 97% 06/14/2022 2:28 PM CDT Inhaled Oxygen Concentration - - Weight 102.1 kg (225 lb) 06/14/2022 2:28 PM CDT Height 144.8 cm (4' 9.01) 01/01/2022 1:00 PM CDT Body Mass Index 48.68 01/01/2022 1:00 PM CDT Plan of Treatment Health Maintenance Due Date Last Done Comments Hepatitis C screening for age 1007/07/2010 18-79 Depression screening for age 12+ 09/28/2020 09/28/2019, , 01/30/2019, Additional history exists COVID-19 vaccine series (3 - 03/19/2021 01/22/2021, 021 Booster for Moderna series) Influenza for age 9-49 05/28/2022 07/23/2020, 07/24/2019, 07/24/2019, Additional history exists Pap test for age 21-65 07/24/2022 07/24/2019, 02/10/2018, 11/08/2014 BMI (ht and wt on same day) for 01/01/2023 01/01/2022, 03/0 12/2021, age 18+ 07/15/2020, Additional history exists Tetanus booster 06/22/2024 06/22/2014, 05/14/2004, 05/14/2004, Additional history exists Tdap Completed 06/22/2014, 05/14/2004 Procedures Procedure Name Priority Date/Time Associated Comments Diagnosis THROAT RAPID STREP Routine 06/14/2022 2:59 PM Sore throat Res ults for this ONLY CLINIC CDT procedure are i n the results section. COVID 19 Routine 06/14/2022 2:41 PM Sore throat Results f or this CDT procedure are i n the results section. COVID 19 COLLECTION Routine 06/14/2022 2:41 PM Sore throat Re sults for this CDT procedure are i n the results section. from Last 3 Months Results THROAT RAPID STREP ONLY CLINIC (06/14/2022 2:59 PM CDT) Analysis Performed At [facility] THROAT RAPID Negative 06/14/2022 VAN TASSELL STREP A 3:05 PM CDT [facility] Specimen Anatomical Collection Method Collection Time Receive d Time (Source) Location / / Volume Laterality Throat SPECIMEN FROM Non-Blood / 06/14/2022 2:59 PM 06/14/20 22 2:59 THROAT / Unknown Unknown CDT PM CDT Yvette Anderson NP MICROBIOLOGY Performing Organization Address City/State/ZIP Code Phon e Number [facility] [address] [place] [address] COVID 19 (06/14/2022 2:41 PM CDT) Analysis Performed At Patho logist Time Signature COVID 19 Negative Negative 06/16/2022 [facility] 4:31 PM CDT LABORATORY-[facility] Comment: All PCR tests are subject to fa lse negative result due to variability in viral load and collection technique. A n egative result does not rule out a SARS-CoV-2 infection. Clinical correlation required . Specimen Anatomical Location / Collection Method Collection Abdi e Received Time (Source) Laterality / Volume Other SPECIMEN FROM Non-Blood / 06/14/2022 2:41 06/16/2022 8:11 NASOPHARYNGEAL Unknown PM CDT AM CDT STRUCTURE / Unknown Narrative [facility] LABORATORY-CENTRAL LABORAT ORY - 06/16/2022 4:31 PM CDT This test has been authorized by FDA und er an Emergency Use Authorization (EUA). This test is only authorized for the duration of time the declaration that circumstances exist justifying the authorization of th e emergency use of in vitro diagnostic tests for detection of SARS-CoV-2 virus and/or diagnosis of COVID-19 infection under section 564(b)(1) of the Act, 21 U.S.C. 360bbb-3(b)(1), unless the authorization is terminated or revoked sooner. Yvette Anderson NP MICROBIOLOGY Performing Organization Address City/[facility] Phon e Number [facility] [address] [place] [id number] LABORATORY-CENTRAL 2000 LABORATORY COVID 19 COLLECTION (06/14/2022 2:41 PM CDT) [facility] Method Time Signature TESTING [facility] 06/16/2022 [facility] Laboratory 8:12 AM CDT LABORATORY-CE NTRAL LABORATORY Comment: Specimen submitted to [facility] for testing. Specimen Anatomical Location / Collection Method Collection Abdi e Received Time (Source) Laterality / Volume Other SPECIMEN FROM Non-Blood / 06/14/2022 2:41 06/14/2022 2:51 NASOPHARYNGEAL Unknown PM CDT PM CDT STRUCTURE / Unknown Yvette Anderson NP SEND OUTS Performing Organization Address City/[facility]/ZIP [facility] Phon e Number [facility] [address] [place] [id number] LABORATORY-CENTRAL 1999 LABORATORY from Last 3 Months Insurance Payer Benefit Plan / Subscriber ID Effective Dates Phone Addre ss Type Group [employer] [place] [employer] [id number] 2018-Present [address] [address] [place] [address] [place] [id number] 2014-Present [address] [place] [address] [address] (Home) [address] [id number] [place] Personal/Family Self 1990 [address] (Home[address] [id number] Wilian Personal/Family Self 1990 [address] (Home) [address] [id number] [employer] [facility] Employer 09/27/2000 [address] JACK OCONNOR [place] (Home) DEPT [id number] Jones Oconnor [phone] KELLER (Work) [place] [id number] [employer] [facility]/[employer] Employer ATTN KIRSTY MARCIAL (Home) RESOURCES [phone] [phone] (Work) [place] [phone] Advance Directives Latest Code Status on File Code Status Date Activated Date Inactivated Comments Full Code 05/15/2020 12:48 PM 05/15/2020 7:36 PM Code Status Discussion: Discussed Full Code 04/23/2016 11:18 AM 04/26/2016 3:48 PM Code Status Discussion: Not Discussed Full Code 04/23/2016 9:26 AM 04/23/2016 11:18 AM Full Code 04/23/2016 8:50 AM 04/23/2016 9:26 AM Full Code 04/20/2016 9:29 PM 04/23/2016 8:50 AM 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
--- OUTSIDE RECORDS SUMMARY | 2022-07-09 20:39 | XMS_ITS | Encounter Summary ---
:1990 Author Organization [facility] Address [address] [place] [address] Care Team Providers Name Role Phone Unavailable Primary Care Provider Unavailable Encounter Details Date Type Department Care Team Description 06/17/2021 Lab Department of [facility] Matthew Andrade Pre procedural Lab Exam; Medicine, [facility] [place] Contact With And (Suspected) Exposure To COVID-19 [facility], in [place], [facility] [address] [place], [place] [address] [facility] [id number] [place] [address] [facility] [phone] Social History Tobacco Use Types Packs/Day Years [...] or relatives? How often do you attend mormonism or Never 2020 denominational services? Do you belong to any clubs or No 06/25/2021 organizations such as mormonism groups, unions, fraternal or athletic groups, or [...] place to sleep or slept in a senior care (including now)? Sex Assigned at Date Recorded Female 04/12/2018 10:21 PM CDT documented as of this encounter Plan of Treatment Not on filedocumented as of this encounter Procedures Procedure Name Priority Date/Time Associated Diagnosis Comme nts SARS CORONAVIRUS-2 Routine 06/17/2021 11:27 Preprocedura l Lab Exam Results for this RNA, V AM CDT Contact With And procedure a re in (Suspected) Exposure the res ults To COVID-19 section. documented in this encounter Results SARS Coronavirus-2 RNA, V Asymptomatic (06/17/2021 11:27 AM CDT) [facility] Method Time Signature SARS-CoV-2 Swab, 06/18/2021 MKTO Specimen Nasopharynx 3:23 AM CDT Source SARS CoV-2 Undetected Undetected 06/18/2021 MKTO RNA, TMA 3:23 AM CDT Comment: SARS-CoV-2 RNA absent. This result does not rule out COVID-19 in the patient, as the sensitivity of the test depends o n the timing of the specimen collection and the quality of the specim en. Result should be correlated with patient's history and clinical presentat ion. ----ADDITIONAL INFORMATION---- This molecular amplification test was pe rformed using the Aptima SARS-CoV-2 assay ([employer] on the [place] [employer] tem under emergency use authorization (EUA) by the U.S. Food and Drug Administ ration. Fact sheets for this EUA assay can be fo und at the following links: For Healthcare Providers: https://www.fd a.gov/media/486583/download For Patients: https://www.fda.gov/media/ 960117/download Specimen Anatomical Collection Method Collection Time Receive d Time (Source) Location / / Volume Laterality Varies 06/17/2021 11:27 06/17/2021 8:18 (Nasopharynx) AM CDT PM CDT Matthew Andrade M.D. LAB MICROBIOLOGY - GENERAL O RDERABLES Performing Organization Address City/State/ZIP Code Phon e Number [facility] [address] [place] [phone] [place] [address] System in [address] documented in this encounter Visit Diagnoses Diagnosis Preprocedural Lab Exam Contact With And (Suspected) Exposure To COVID-19 documented in this encounter Additional Health Concerns Infection Onset Date Last Indicated Resolved Time COVID19 Pending 06/16/2021 06/17/2021 06/18/2021 3:24 AM CDT Assessment Noted Time PHQ-9 Depression Total Score: 1 11/16/2012 11:45 AM CS T documented as of this encounter
--- OUTSIDE RECORDS SUMMARY | 2022-07-09 20:39 | XMS_ITS | Encounter Summary ---
:1990 Author Organization [facility] Address [address] [place] [address] Care Team Providers Name Role Phone Unavailable Primary Care Provider Unavailable Reason for Visit Physical Therapy (Routine) - Closed Specialty Diagnoses / Procedures Referred By Contact Refer red To Contact Diagnoses Pain Pelvic Female Nate Barrios M.D. [facility] Procedures PMR Pelvic floor & bowel/bladder rehab [address] [place] [phone] Referral ID Status Reason Start Date Expiration Date Visits Requ ested Visits Authorized [id number] Closed 03/05/2021 03/05/2022 1 1 Encounter Details Date Type Department Care Team Description 06/25/2021 Comprehensive Visit Department of Physical Nate Weathers M.D. [address] [place] [phone] Spasm Muscle (Primary Dx); Medicine and Charis Akers, P.TWander, D.P.T., OCS [address] [place] [address] [phone] Pain Pelvic Female; Rehabilitation in Lack Of Co ordination [place], [place] [address] [place] [phone] Social History Tobacco Use Types Packs/Day Years [...] or relatives? How often do you attend holiness or Never 2020 protestant services? Do you belong to any clubs or No 06/25/2021 organizations such as holiness groups, unions, fraternal or athletic groups, or [...] place to sleep or slept in a penitentiary (including now)? Education Answer Date Recorded What is the highest level of school you have GED or equivale nt 06/25/2021 completed or the highest degree you have received? Sex Assigned at Date Recorded Female 04/12/2018 10:21 PM CDT documented as of this encounter Consult Notes Charis Akers P.T., D.P.T., [facility] - 06/25/2021 9:30 AM CDT Physical Therapy Pelvic Floor Outpatient Evaluation and Treatment By co-signing this note, the provider certifies the therapy being provided to this patient is reasonable and necessary for the diagnosis or treatment of this patient. SUBJECTIVE Patient's Name: Barbra Medina Referring Provider: Nate Barrios M.D. Medical Diagnosis: 1. Spasm Muscle 2. Pain Pelvic Female Reason for Referral: Pelvic pain Payor: [facility] / Plan: [facility] / Product Type: Medicaid HMO / Psychiatric Visit Count: 1 PT Next Certification Date: 09/23/21 PERTINENT MEDICAL / SURGICAL HISTORY: Patient Active Problem List Diagnosis ??? Other Specified Anxiety Disorders ??? Female Pelvic Peritoneal Adhesions Postinfective ??? Body Mass Index 45.0 To 49.9 Adult (HCC) ??? Complication Preg Previous (C) Section Antepartum ??? Deficiency Vitamin D ??? Stone Urinary Personal History ??? History Of Uterine Scar From Previous Surgery ??? Allergy Seasonal ??? Abnormal Ultrasound ??? Endometriosis ??? Morbid Severe Obesity Due To Excess Calories (HCC) ??? Rhinitis Seasonal ??? Menstrual Irregularity ??? Dysmenorrhea ??? Fever Of Unknown Origin ??? Menorrhagia Past Surgical History: Procedure Laterality Date ??? SECTION N/A 11/26/2009 delivery only;.. ??? SECTION N/A 12/30/2012 delivery only;.. ??? SECTION N/A 06/20/2014 delivery only;.. ??? SECTION N/A 04/23/2016 section ??? SECTION ??? CHOLECYSTECTOMY ??? LAPAROSCOPIC CHOLECYSTECTOMY N/A 01/08/2015 Laparoscopic cholecystectomy ??? MASS EXCISION 04/2020 abdominal wall endometriosis removal; pathology positive for endometriosis ??? SALPINGECTOMY during last ??? TONSILLECTOMY N/A 2015 Tonsillectomy ??? TONSILLECTOMY Barbra Medina is a 30 y.o. female who presents to outpatient physical therapy for evaluation. Her symptoms consist of left lower quadrant/pelvic pain. Patient with known endometriosis, status post ablation 06/19/[address] Barrios. Appreciate referral. Please see this documentation for complete medical and surgical history related to referral. Patient describes her pain as pressure, heavy, sharp, stabbing, cramping. Overall she reports her symptoms vary and are not improving. 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 Patient reports low back pain since her 4th in which her providers have difficulty placing epidural. She will have intermittent left lower extremity pain. She describes this as a ???flash ???of pain the last for approximately 5-10 minutes. This will occur approximately 5 times per month. Denies numbness and tingling. Patient also reports the bilateral upper extremities feel weak. Denies past injury or trauma to her back or hips. Additionally patient reports struggling with migraines daily. Bowel: Patient has struggle slightly with bowel movements ever since her gallbladder removal. She reports urgency after eating. She will have 4-5 bowel movements per day. Typically Camden stool scale type 6. After her surgery/ablation last week she did struggle for couple days of constipation. This has resolved. She is not taking any medication or supplements for her bowels. Patient reports struggling with thirst since her surgery last week and she is currently drinking 6 gal of water per day,, this was verified by asking water intake in multiple questions. Prior to surgery she reports drinking shahriar roximately 80 oz of water per day. Additionally patient reports struggling with nausea.. Bladder: Patient reports struggling with bladder function since she was a child. She does remember being taking to a position as a young person and having some sort of procedure done that resulted in dysuria for some time. Currently she reports positive frequency, positive stress urinary incontinence.She does wear 3 protective pads per day. Positive nocturia with 3-4 9 voids per night. Denies dysuria. Denies difficulty starting the stream of urine. She will have postvoid dribbling and occasional double voiding. Prolapse: Patient does report heaviness and pressure in her lower abdomen, however, has not seen or felt a bulge at the introitus. Reproduction/Sexual Health: , all sections. Onset of menses at approximately age 8. Initially she had regular menses with minimal bleeding and minimal to no dysmenorrhea. After her most recent delivery in 2019 she reports having fallopian tubes removed in after this developing pain with menses, primarily in left lower quadrant. Patient did have biopsy last year which confirmed endometriosis. Denies any sexual health concerns. Patient has not been the victim of unwanted sexual experiences, trauma or abuse. Patient has not been the victim of other typed of abuse. Patient denies balance problems or a history of a fall. Patient rates general health as fair. Additional symptoms: Pain that wakes her from sleeping, widespread muscle/joint pain, nausea, vomiting, depression, stress, anxiety. Patient is also entertaining the possibility of having a gastric bypass surgery. Current exercise: Walking OBJECTIVE I have briefly reviewed the Review of Systems and patient's electronic medical record. I am only responding to those symptoms which are directly relevant to the specific indication for my consultation.I recommend that the patient follow up with their primary or referring provider to pursue any other symptoms which may be of concern. PHYSICAL EXAM Contact monitoring: PPE used during therapy: Therapist was wearing the following PPE throughout entire session: surgicalmask, eye protection and gloves Patient was wearing a mask during therapy session: yes Patient seen with Salome Cavazos PT, DPT who is also wearing a facemask. Provide time and space for patient to fully share their symptoms and adequately address their questions Pleasant female in no acute distress. Alert and orientated to person, place and date. Gait assessment: normal selwyn and stride, able to walk on heels and toes. Posture: Normal Noted most recent BMI: 46.58 Able to fully squat. Patient able to independently single leg stance for greater than 10 seconds bilaterally. Normal trunk range of motion without reports of pain. (-) straight leg raise LILIAN: Negative Hip scour: Negative FADIR: Negative SI screen: Negative Patient is able to globally contract, relax and expand her abdomen. scar: none painful, normal mobility. Paused to explain pelvic floor muscles examination. 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 Explained each step of pelvic floor muscle assessment prior to performing. Patient given option to discontinue examination at any time. Diaphragmatic breathing assessment: Normal pattern after cueing Perineal resting position: Difficult to assess due to body habitus Skin integrity: Normal, intact Vaginal introitus: Normal Cotton swab testing: Sensation: intact to light touch, negative tenderness at vestibule Voluntary pelvic floor muscles contraction: Present after cueing Involuntary pelvic floor muscles contraction cough test: Absent Voluntary pelvic floor muscles relaxation: Present, slightly diminished Involuntary pelvic floor muscles relaxation: Present, slightly diminished Urogenital triangle of superficial muscles (ischiocavernosus, bulbocavernosus, superficial transverse perineal): Increased soda bulbocavernosus bilaterally, patient reports sensation of ???pressure?? Urogenital diaphragm (deep transverse perineal, sphincter urethra): Normal tone, no tenderness Pelvic floor/pelvic diaphragm (levator ani pubo/iliococcygeus, obturator internus): Normal tone, no tenderness Manual muscle test at pelvic diaphragm: Power: Good squeeze, partial lift Endurance (goal is 10 seconds): Able to hold contraction times 10 seconds Coordination (goal of 10 quick contractions): Able to perform 10 quick contractions with cueing Palpation of bulbocavernosus after above: Improved muscle tone tenderness TREATMENT Treatment today consisted of: Evaluation Educated on examination findings and plan of care. Neuromuscular re-education via verbal and tactile cues to improve muscle tone and patient's ability to contract and relax her pelvic floor muscles. Educated on pelvic floor muscles awareness and application to ADLS. Recommended performing 3 to thigh pelvic muscle contract and relax coordination exercises after urination to improve bladder emptying. Neuromuscular re-education via verbal and tactile cueing to improve pace and abdominal expansion with diaphragmatic breathing. Educated on application to ADLS. In particular, recommended performing to 3 press after urination to improve bladder emptying. Therapeutic exercise: Educated on pelvic floor muscles anatomy and function. Educated on relationship between lumbar spine, hip and pelvic floor. Instructed in home exercise program to include: -seated open hip piriformis stretch -seated hip abduction lumbar flexion stretch -diaphragmatic breathing -pelvic floor muscles coordination exercises -yoga series: happy baby, upside down pigeon, cat/cow, child's pose, sphinx and bound angle. Patient performed exercises correctly after verbal and tactile cueing for proper positioning and targeting of correct muscle groups. Patient given the opportunity to ask questions and these were answered to the best of my ability. Patient education materials provided: (Women) Home Instructions for Relief of Pelvic Floor Pain [id number], Relaxed Breathing (Diaphragmatic) [id number] and Sunol handout, Yoga for Pelvic Pain. Assessment Clinical Impression: Ms. Medina presents to physical therapy with signs and symptoms consistent with left lower quadrant pain in the setting of known endometriosis. Pelvic physical therapy assessment today reveals chronic difficulties with bladder function dating back to childhood, lack of coordination pelvic floor muscles and increased tone along bulbocavernosus Rehab Potential: Ms. Medina has Good potential to achieve established physical therapy goalswithin the time frame outlined below, provided she actively participates in her physical therapy treatment plan and home program. Comorbid Conditions: Obesity, Mental health disorder, Other (Comment) (Endometriosis, status post cholecystectomy) Clinical Presentation: Unstable Examination elements: 4+ Clinical Decision Making: High complexity clinical decision making Clinical Decision Making Complexity: High complexity clinical decision making Functional Goals and Timeframes: PT Goal #1: Patient will demonstrate and/or verbalize understanding of home exercise program PT Goal #1 Date: 06/25/21 PT Goal #2: Patient will report >3+ on the Global Rating of Change PT Goal #2 Date: 07/25/21 PT Goal #3: Patient will report a 50% decrease in max pain rating for increased participation in life or work activities PT Goal #3 Date: 12/23/21 Plan Ms. Medina was educated regarding evaluative findings, diagnosis, prognosis, potential risksand benefits of rehabilitation interventions. A collaborative effort was used to establish goals andplan of care. She was informed of her right to make decisions regarding her care, including refusal of examination or treatment or selection of services from another provider if desired. The treatment plan may be progressed or modified based upon her response to treatment. Patient agrees with the plan of care and goals. Plan for next session: Continue with home program. Patient reports she is to be scheduled to follow up with Gynecology in approximately 3 months, recommend follow-up with pelvic physical therapy at same visit. Patient was given my business card to contact me if they should have further questions or concerns. This note is transcribed using [employer]. Proof-reading has been performed in real time, however, minor errors in diesel power mechanic can occur. Treatment Plan: Plan: Plan of care initiated Start of Plan of Care: 06/25/2021 PT Next Certification Date: 09/23/21 Number of Visits: up to 3 visits PT Duration: up to 120 days Treatment interventions may include: Treatment/Interventions: Therapeutic exercise, Therapeutic functional activity, Neuromuscular re-education, Manual therapy Time Spent with Patient PT Evaluation (min): 40 min Therapeutic Exercise (min): 25 min Neuromuscular Re-Education (min): 15 min Time Calculation Total Timed Units (min): 40 min Total Treatment Time (min): 80 min Charis Akers P.T., D.P.T., OCS documented in this encounter Plan of Treatment Not on filedocumented as of this encounter Visit Diagnoses Diagnosis Spasm Muscle - Primary Pain Pelvic Female Lack Of Coordination documented in this encounter Additional Health Concerns Assessment Noted Time PHQ-9 Depression Total Score: 1 11/16/2012 11:45 AM CS T documented as of this encounter
--- OUTSIDE RECORDS SUMMARY | 2022-07-09 20:39 | XMS_ITS | Encounter Summary ---
:1990 Author Organization [facility] Address [address] [place] [address] Care Team Providers Name Role Phone Unavailable Primary Care Provider Unavailable Encounter Details Date Type Department Care Team Description 06/17/2021 Hospital Encounter Department of Matthew Andrade Soft Tissue Laboratory Medicine [place] in [place], [facility] [place], [place] [id number] [place], [place] [phone] (Work) [phone] Social History Tobacco Use Types Packs/Day Years [...] or relatives? How often do you attend jain or Never 2020 gnosticism services? Do you belong to any clubs or No 06/25/2021 organizations such as jain groups, unions, fraternal or athletic groups, or [...] place to sleep or slept in a retirement (including now)? Sex Assigned at Date Recorded Female 04/12/2018 10:21 PM CDT documented as of this encounter Medications at Time of Discharge Medication Sig Dispensed Refills Start Date End Date albuterol (PROVENTIL Inhale 1-2 puffs as 0 2017 HFA,VENTOLIN HFA) 90 needed. mcg/actuation inhaler amitriptyline (ELAVIL) 25 mg Take 25 mg by mouth 0 02/03/2021 tablet at bedtime. cetirizine (ZyrTEC) 10 mg Take 10 mg by mouth 0 0 05/24/2019 tablet as needed. cholestyramine (QUESTRAN) 4 Take 1 packet by 0 gram packet mouth as needed. ibuprofen (ADVIL,MOTRIN) 200 Take 400 mg by 0 mg tablet mouth as needed for pain. metoclopramide (REGLAN) 5 mg Take 5 mg by mouth 0 07/15/2020 tablet as needed. ondansetron (ZOFRAN) 4 mg Take 4 mg by mouth 0 tablet daily. sertraline (ZOLOFT) 100 mg Take 100 mg by 0 03/07 tablet mouth at bedtime. topiramate (TOPAMAX) 50 mg Take 50 mg by mouth 0 03/07/2020 tablet at bedtime. traMADoL (ULTRAM) 50 mg Take 50 mg by mouth 0 tablet as needed. venlafaxine (EFFEXOR) 75 mg Take 75 mg by mouth 0 tablet at bedtime. documented as of this encounter Plan of Treatment Not on filedocumented as of this encounter Procedures Procedure Name Priority Date/Time Associated Comments Diagnosis PROTHROMBIN TIME Routine 06/17/2021 11:54 Lesion Soft Tissue R esults for this (PT), P AM CDT procedure are i n the results section. CBC WITHOUT Routine 06/17/2021 11:54 Lesion Soft Tissue Resul ts for this DIFFERENTIAL, B AM CDT procedure ar e in the results section. CREATININE WITH EGFR, Routine 06/17/2021 11:54 Lesion Soft Tis sophia Results for this S/P AM CDT procedure are i n the results section. documented in this encounter Results Creatinine with Estimated GFR (06/17/2021 11:54 AM CDT) P athologist Signature Creatinine 0.65 0.59 - 06/17/2021 [facility] 1.04 mg/dL 12:49 PM CDT eGFR-Black/Afric >90 >=60 06/17/2021 [facility] an Chinese mL/min/BSA 12:49 PM CDT Comment: ----ADDITIONAL INFORMATION---- Estimated GFR calculated using the 2009 CKD_EPI creatinine equation. eGFR Non-Black/ >90 >=60 mL/min/BSA 06/17/2021 12:49 PM CDT [facility] Comment: ----ADDITIONAL INFORMATION---- Estimated GFR calculated using the 2009 CKD_EPI creatinine equation. Specimen Anatomical Collection Method Collection Time Receive d Time (Source) Location / / Volume Laterality Blood (Blood, 06/17/2021 11:54 06/17/2021 Venous) AM CDT 11:58 AM CDT Matthew Andrade M.D. LAB BLOOD ADD-ON Performing Organization Address City/[facility] Code Phon e Number [facility]- [address] [place] [address] [facility] [address] System in [place] [address] [place] [address] Prothrombin Time (PT) (06/17/2021 11:54 AM CDT) P athologist Signature Prothrombin 10.7 9.4 - 12.5 06/17/2021 [facility] Time, P sec 12:13 PM CDT INR 0.9 0.9 - 1.1 06/17/2021 [place] 12:13 PM CDT Comment: ----ADDITIONAL INFORMATION---- Standard intensity warfarin therapeutic range: 2.0 to 3.0 ?? High intensity warfarin therapeutic rang e: 2.5 to 3.5 Specimen Anatomical Collection Method Collection Time Receive d Time (Source) Location / / Volume Laterality Blood (Blood, 06/17/2021 11:54 06/17/2021 Venous) AM CDT 11:58 AM CDT Matthew Andrade M.D. LAB BLOOD ADD-ON Performing Organization Address City/State/[facility] Code Phon e Number [facility]- [address] [place] [address] [place] [address] System in [place] [address] [place] [address] CBC without Differential (06/17/2021 11:54 AM CDT) P athologist Signature Hemoglobin 13.4 11.6 - 06/17/2021 [place] 15.0 g/dL 12:01 PM CDT Hematocrit 40.9 35.5 - 06/17/2021 [facility] 44.9 % 12:01 PM CDT Erythrocytes 4.61 3.92 - 06/17/2021 [place] 5.13 12:01 PM CDT x10(12)/L MCV 88.7 78.2 - 06/17/2021 [place] 97.9 fL 12:01 PM CDT RBC Distrib Width 12.9 12.2 - 06/17/2021 [place] 16.1 % 12:01 PM CDT Platelet Count 302 157 - 371 06/17/2021 [place] x10(9)/L 12:01 PM CDT Leukocytes 8.4 3.4 - 9.6 06/17/2021 [facility] x10(9)/L 12:01 PM CDT Specimen Anatomical Collection Method Collection Time Receive d Time (Source) Location / / Volume Laterality Blood (Blood, 06/17/2021 11:54 06/17/2021 Venous) AM CDT 11:58 AM CDT Matthew Andrade M.D. LAB BLOOD ADD-ON Performing Organization Address City/State/ZIP Code Phon e Number [facility]- [address] [address] [place] [address] System in [place] [address] [facility] documented in this encounter Visit Diagnoses Diagnosis Lesion Soft Tissue documented in this encounter Additional Health Concerns Infection Onset Date Last Indicated Resolved Time COVID19 Pending 06/16/2021 06/17/2021 06/18/2021 3:24 AM CDT Assessment Noted Time PHQ-9 Depression Total Score: 1 11/16/2012 11:45 AM CS T documented as of this encounter
--- OUTSIDE RECORDS SUMMARY | 2022-07-09 20:39 | XMS_ITS | Encounter Summary ---
:1990 Author Organization [facility] Address [address] [place] [address] Care Team Providers Name Role Phone Unavailable Primary Care Provider Unavailable Reason for Referral Outpatient (Routine) - Closed Specialty Diagnoses / Procedures Referred By Contact Refer red To Contact Radiology Oneida De León APRN, C.N.PWander, [facility] M.S.N. [address] [place] [phone] Referral ID Status Reason Start Date Expiration Date Visits Requ ested Visits Authorized [id number] Closed 06/20/2021 06/20/2022 1 1 Scheduling Instructions Phone visit f/u post AWE ablation Reason for Visit Outpatient (Routine) - Closed Specialty Diagnoses / Procedures Referred By Contact Refer red To Contact Radiology Oneida De León APRN C.N.PWander, [facility] M.S.N. [address] [place] [phone] Referral ID Status Reason Start Date Expiration Date Visits Requ ested Visits Authorized [id number] Closed 06/19/2021 06/19/2022 1 1 Encounter Details Date Type Department Care Team Description 06/20/2021 Virtual Visit Department of Radiology, Oneida De León APRN, [facility], in C.N.P., M.S.N. [place], [place] [address] [facility] [address] [place] [phone] (Wo rk) Social History Tobacco Use Types Packs/Day Years [...] or relatives? How often do you attend jehovah's witness or Never 2020 mandaeism services? Do you belong to any clubs or No 06/25/2021 organizations such as jehovah's witness groups, unions, fraternal or athletic groups, or [...] place to sleep or slept in a custodial (including now)? Sex Assigned at Date Recorded Female 04/12/2018 10:21 PM CDT documented as of this encounter Progress Notes Oneida De León APRN, C.N.P., M.S.N. - 06/20/2021 9:[address] ABLATION PROGRESS NOTE Phone Consult SUBJECTIVE This patient is post-procedure day 1 from percutaneous ablation of ... This patient did well post-procedure and was discharged from the post-procedure area to local lodging. Overnight, the patient reports doing well. Pain well- controlled. Denies difficulty with urination or noting hematuria. No N/V. No drainage or bleeding from puncture sites. Discussed that it is normal for her procedural area and abdomen to feel swollen. Should could expectfluid retention and weight gain of 10-15 pounds for the next 7-10 days as her body heals. She could also expect to notice puffiness or swelling in her lower back, upper thighs or labia, which should resolve on its own. Patient reports no pain with the ablation 0/10-- her pain pain complaint is her throat, which she will take tylenol/ibuprofen and over the counter numbing cough drops for. I will plan to reach out to her in about 4 weeks to see if her abdominal endometrial pain has improved after cycling. OBJECTIVE CURRENT MEDICATIONS Current Outpatient Medications on File Prior to Visit Medication Sig Dispense Refill ??? albuterol (PROVENTIL HFA,VENTOLIN HFA) 90 mcg/actuation inhaler Inhale 1-2 puffs as needed. ??? amitriptyline (ELAVIL) 25 mg tablet Take 25 mg by mouth at bedtime. ??? cetirizine (ZyrTEC) 10 mg tablet Take 10 mg by mouth as needed. ??? cholestyramine (QUESTRAN) 4 gram packet Take 1 packet by mouth as needed. ??? ibuprofen (ADVIL,MOTRIN) 200 mg tablet Take 400 mg by mouth as needed for pain. ??? metoclopramide (REGLAN) 5 mg tablet Take 5 mg by mouth as needed. ??? ondansetron (ZOFRAN) 4 mg tablet Take 4 mg by mouth daily. 0 ??? sertraline (ZOLOFT) 100 mg tablet Take 100 mg by mouth at bedtime. ??? topiramate (TOPAMAX) 50 mg tablet Take 50 mg by mouth at bedtime. ??? traMADoL (ULTRAM) 50 mg tablet Take 50 mg by mouth as needed. ??? venlafaxine (EFFEXOR) 75 mg tablet Take 75 mg by mouth at bedtime. Current Facility-Administered Medications on File Prior to Visit Medication Dose Route Frequency Provider Last Rate Last Admin ??? [DISCONTINUED] acetaminophen tablet 650 mg (TYLENOL) 650 mg oral Q4H PRN Oneida De León APRN, C.N.P., M.S.N. ??? [DISCONTINUED] bupivacaine PF 0.25 % (2.5 mg/mL) injection (MARCAINE) Code/Trauma/Sedation Mattehw Holcomb M.D. 6 mL at 06/19/21 1307 ??? [DISCONTINUED] ceFAZolin injection (ANCEF) intravenous PRN Tate Almanza APRN, SHIPPING AND RECEIVING COORDINATOR, MNA 2 g at 06/19/21 1145 ??? [DISCONTINUED] dexmedeTOMIDine 4 mcg/mL in NaCl 0.9% 100 mL infusion (PRECEDEX) 0.1-1.5 mcg/kg/hr (Order-Specific) intravenous Continuous Altagracia Mcgee M.D. Stopped at 06/19/21 1320 ??? [DISCONTINUED] ePHEDrine (PF) injection intravenous PRN Tate Almanza WASTEWATER ENGINEER, SHIPPING AND RECEIVING COORDINATOR, MNA 5 mg at06/19/21 1257 ??? [DISCONTINUED] fentaNYL injection (SUBLIMAZE) intravenous PRN Tate Almanza WASTEWATER ENGINEER, SHIPPING AND RECEIVING COORDINATOR, MNA 50 mcg at 06/19/21 1057 ??? [DISCONTINUED] glycopyrrolate injection (ROBINUL) intravenous PRN EversmAmaya whites Gina, WASTEWATER ENGINEER, SHIPPING AND RECEIVING COORDINATOR, DNAP 0.1 mg at 06/19/21 1300 ??? [DISCONTINUED] HYDROmorphone (PF) injection (DILAUDID) intravenous PRN Tate Almanaz APRN, SHIPPING AND RECEIVING COORDINATOR, MNA 0.4 mg at 06/19/21 1230 ??? [DISCONTINUED] HYDROmorphone (PF) injection 0.2 mg (DILAUDID) 0.2 mg intravenous Q5 Min PRN Altagracia Mcgee M.D. ??? [DISCONTINUED] ketamine injection (KETALAR) intravenous PRN Tate Almanza APRN, SHIPPING AND RECEIVING COORDINATOR, MNA 10 mg at 06/19/21 1214 ??? [DISCONTINUED] ketamine injection 10 mg (KETALAR) 10 mg intravenous Once PRN Altagracia Mcgee M.D. ??? [DISCONTINUED] lactated ringers intravenous As Directed PRN Tate Almanza APRN, SHIPPING AND RECEIVING COORDINATOR, MNA Stopped at 06/19/21 1340 ??? [DISCONTINUED] lactated ringers intravenous As Directed PRN Tate Almanza WASTEWATER ENGINEER, SHIPPING AND RECEIVING COORDINATOR, MNA Anesthesia Discontinued at 06/19/21 1413 ??? [DISCONTINUED] lactated ringers 20 mL/hr intravenous Continuous Eversman, Narjis A, WASTEWATER ENGINEER, SHIPPING AND RECEIVING COORDINATOR, DNAP ??? [DISCONTINUED] lactated ringers 20 mL/hr intravenous Continuous Eversman, Narjis A, WASTEWATER ENGINEER, SHIPPING AND RECEIVING COORDINATOR, DNAP ??? [DISCONTINUED] lidocaine (PF) (cardiac) injection intravenous PRN Pendl, Tate M, WASTEWATER ENGINEER, SHIPPING AND RECEIVING COORDINATOR, MNA 100 mg at 06/19/21 1057 ??? [DISCONTINUED] ondansetron (PF) injection (ZOFRAN) intravenous PRN EverAmaya ruizs A, WASTEWATER ENGINEER, SHIPPING AND RECEIVING COORDINATOR, DNAP 4 mg at 06/19/21 1247 ??? [DISCONTINUED] phenylephrine injection intravenous PRN Tate Almanza, WASTEWATER ENGINEER, SHIPPING AND RECEIVING COORDINATOR, MNA 100 mcg at 06/19/21 1143 ??? [DISCONTINUED] propofol 10 mg/mL infusion (DIPRIVAN) intravenous As Directed PRN Tate Almanza, WASTEWATER ENGINEER, SHIPPING AND RECEIVING COORDINATOR, MNA Stopped at 06/19/21 1320 ??? [DISCONTINUED] propofoL injection (DIPRIVAN) intravenous PRN Tate Almanza, WASTEWATER ENGINEER, SHIPPING AND RECEIVING COORDINATOR, MNA 100 mg at 06/19/21 1107 ??? [DISCONTINUED] sodium chloride 0.9 % injection 10 mL 10 mL intravenous PRN Matthew Andrade M.D. ??? [DISCONTINUED] sodium chloride 0.9 % injection 3 mL 3 mL intravenous PRN Matthew Andrade M.D. ??? [DISCONTINUED] sodium chloride 0.9 % injection 3 mL 3 mL intravenous Q12H Matthew Bowie M.D. ??? [DISCONTINUED] sugammadex injection (BRIDION) intravenous PRN Eversman, Narjis A, WASTEWATER ENGINEER, SHIPPING AND RECEIVING COORDINATOR, DNAP ??? [DISCONTINUED] sugammadex injection (BRIDION) intravenous PRN Everjimyan, Narjis A, WASTEWATER ENGINEER, SHIPPING AND RECEIVING COORDINATOR, DNAP 300 mg at 06/19/21 1300 ??? [DISCONTINUED] vecuronium injection (NORCURON) intravenous PRN Tate Almanza, WASTEWATER ENGINEER, SHIPPING AND RECEIVING COORDINATOR, MNA 2 mg at 06/19/21 1214 VITAL SIGNS There were no vitals filed for this visit. ALLERGIES Allergies Allergen Reactions ??? House Dust Other (see comments) Cough, eyes watery and red, throat tickles and runny nose ??? Cat Dander Hives has allergy to cats ASSESSMENT/PLAN #1 Post-procedure day [address] ablation procedure Patient reports doing well overnight. No immediate notable complications. Reviewed puncture site care and encouraged patient to call with any questions or concerns. She returned home last evening. For any questions or concerns regarding this patient, please page Ablation Radiology nurse at [phone] Wednesday through Wednesday 7 a.m. to 5 p.m. or Body Radiology on-call fellow at [phone] after 5 p.m.and on weekends I spent 5 minutes in discussion with the patient on post-procedure care as described above. documented in this encounter Plan of Treatment Scheduled Referrals Name Type Priority Associated Order Schedule Diagnoses Interventional Outpatient Referral Routine Expect ed: Radiology office visit 07/17, (clinic) Expires: 06/20/2024 documented as of this encounter Visit Diagnoses Diagnosis Endometriosis documented in this encounter Additional Health Concerns Assessment Noted Time PHQ-9 Depression Total Score: 1 11/16/2012 11:45 AM CS T documented as of this encounter
--- OUTSIDE RECORDS SUMMARY | 2022-07-09 20:39 | XMS_ITS | Encounter Summary ---
:1990 Author Organization [facility] Address [address] [place] [address] Care Team Providers Name Role Phone Unavailable Primary Care Provider Unavailable Reason for Visit Reason Comments Follow-up Encounter Details Date Type Department Care Team Description 08/05/2021 Clinical Communication Department of Link Ascencio, Follow-up Obstetrics and M.D. Gynecology in [address] [place] [address] 200 [facility] [address] [place], [place] [phone] [address] (Work) [phone] Social History Tobacco Use Types Packs/Day Years [...] or relatives? How often do you attend samaritan or Never 2020 islam services? Do you belong to any clubs or No 06/25/2021 organizations such as samaritan groups, unions, fraternal or athletic groups, or [...] place to sleep or slept in a mcc (including now)? Education Answer Date Recorded What is the highest level of school you have GED or equivale nt 06/25/2021 completed or the highest degree you have received? Sex Assigned at Date Recorded Female 04/12/2018 10:21 PM CDT documented as of this encounter Miscellaneous Notes Telephone Encounter - Vivien Burns R.N. - 08/13/2021 11:04 AM CST Images from the original note were not included. Ruby Veras R.N. You 2 hours ago (8:31 AM) Dr. Barrios's recommendation is not to renew the Depo Lupron at this time. ??Have patient monitor her pain until now and her return visit to see Dr. Barrios on 09/23/21. Thank you, Ruby Veras RN Patient notified and agrees with plan. Advised to check for an sooner appointments in [place]. TE CLERK FOR BASIC TRAFFIC Telephone Encounter - Vivien Burns R.N. - 08/12/2021 2:37 PM CST CHIEF COMPLAINT / REASON FOR CALL Follow-up Information Discussed Spoke with patient. She stated that she has not reached out to anyone in [place] and called first since we are closer. She is s/p ablation for LLQ abdominal wall endometriosis on 06/19 in [place]. She stated that her pain is back and she is also spotting. She is wondering if she can get the depolupron injection locally in . She is scheduled for a MRI pelvis and TECHNICAL PROJECT COORDINATOR follow up in [place] on 09/23. PLAN Notified that we will reach out to [place] to see what their recommendations are and we can go from there. Dr. Ascencio is OK with this as long as [place] is. We will be in touch once we hear back. Disposition/Recommendation: notified provider and awaiting recommendations Information/Education: patient/caller able to teach back Caller agreeable to plan of care: yes The following references were used: nursing clinical judgement TE CLERK FOR BASIC TRAFFIC Telephone Encounter - Tomasa Wu R.N. - 08/08/2021 9:49 AM CST Left message for patient to return our call if any further questions after reviewing portal message sent. TE CLERK FOR BASIC TRAFFIC Telephone Encounter - Tomasa Wu R.N. - 08/07/2021 11:27 AM MINUTE CLERK FOR BASIC TRAFFIC Portal message sent to patient for update. TE CLERK FOR BASIC TRAFFIC Telephone Encounter - Sue Duggan - 08/05/2021 2:24 PM CST Reason for Communication: Patient calling in and states that she is due for her DEPO shot but forgotto schedule it. Patients last DEPO shot was 02/25/21 and states she is now having bad cramping. Patient is wanting to schedule the DEPO shot but there are no scheduling orders. Please advise. Current Can Nursing/Provider leave a detailed message?: Yes Did the patient refuse triage through Nurse line? (for symptom based concerns): n/a Action Needed: Place scheduling orders for DEPO and call back Name of Medication (if relevant): n/a Please send all scheduling replies to scheduling pool. TE CLERK FOR BASIC TRAFFIC documented in this encounter Plan of Treatment Not on filedocumented as of this encounter Visit Diagnoses Not on filedocumented in this encounter Additional Health Concerns Assessment Noted Time PHQ-9 Depression Total Score: 1 11/16/2012 11:45 AM CS T documented as of this encounter
--- OUTSIDE RECORDS SUMMARY | 2022-07-09 20:39 | XMS_ITS | Encounter Summary ---
:1990 Author Organization [facility] Address [address] [place] [address] Care Team Providers Name Role Phone Lidya Beltran Primary Care Provider Unavailable Reason for Referral Diagnostic Imaging Ultrasound - Closed Specialty Diagnoses / Procedures Referred By Contact Refer red To Contact Diagnoses related condition, antepartum Lidya Beltran Procedures [facility] Comprehensive Single [address] [place] [address] Referral ID Status Reason Start Date Expiration Date Visits Requ ested Visits Authorized [id number] Closed 07/11/2018 07/11/2019 1 1 Reason for Visit Diagnostic Imaging Ultrasound - Closed Specialty Diagnoses / Procedures Referred By Contact Refer red To Contact Diagnoses related condition, antepartum Lidya Beltran Procedures [facility] Comprehensive Single [address], [place] [address] Referral ID Status Reason Start Date Expiration Date Visits Requ ested Visits Authorized [id number] Closed 07/11/2018 07/11/2019 1 1 Encounter Details Date Type Department Care Team Description 07/13/2018 Hospital Encounter [facility] Lidya Beltran [address] [place] [address] related Maternal Patel, Katie Wise, DO [address] [place] [address] condition, Medicine Center antepartum [place] [address] [facility] [address] [place] [address] Social History Tobacco Use Types [...] Procedure Name Priority Date/Time Associated Comments Diagnosis [facility] COMPREHENSIVE Routine 07/13/2018 11:40 relate d Results for this SINGLE AM CDT condition, procedure are i n antepartum the results section. documented in this encounter Results [facility] Comprehensive Single (07/13/2018 11:40 AM CDT) [...] RODRIGUEZ Study Date: 07/13/2018 10:17am Pat. NO: [id number] Referring ??MD: CHASIDY BELTRAN Site: [facility] Landman: Jerica Gaitan RD MS : 1990 Age: [...] 0 lb 9 ?oz EFW by ?Hadlock ([id number]) Head / Face / Neck Biometry: Clinical Science Liaison ? 6.6 ? mm CM ?4.4 ? [...] / Thorax ?Aortic arch view. Bicaval view. 9-lpegyx-djffunk view. Spine ?Lumbar spine. Sacral spine. Extremities [...] Pat. Name:Nirav RODRIGUEZ te:07/13/2018 10:17am Pat. NO: [id number] MD:LIDYA BELTRAN Site:[facility]her:Jerica Gaitan RDMS :1990Age:28 INDICATION [...] (lb,oz) 0 lb 9 oz EFW by Toribio ([id number]) Head / Face / Neck Biometry: Clinical Science Liaison 6.6 mm CM 4.4 mm Nasal bone [...] / Thorax Aortic arch view. Bicaval view. 7-cjhmfj-xuhchqt view. Spine Lumbar spine. Sacral spine. Extremities [...] no rmal. 5) Anterior placenta. Lidya Beltran [facility] US ORDERABLES documented in this encounter Visit Diagnoses Diagnosis related condition, antepartum documented in this encounter Care Teams Pr Specialist Relationship Specialty Start Date End Date Lidya Beltran PCP - General back tender paper machine 07/13/18 documented as of this encounter
--- OUTSIDE RECORDS SUMMARY | 2022-07-09 20:39 | XMS_ITS | Encounter Summary ---
:1990 Author Organization [facility] Address [address] [place] [address] Care Team Providers Name Role Phone Unavailable Primary Care Provider Unavailable Reason for Referral Outpatient (Routine) - Closed Specialty Diagnoses / Procedures Referred By Contact Refer red To Contact Radiology Oneida De León APRN, C.N.PWander, [facility] M.S.N. [address] [place] [phone] Referral ID Status Reason Start Date Expiration Date Visits Requ ested Visits Authorized [id number] Closed 06/19/2021 06/19/2022 1 1 Encounter Details Date Type Department Care Team Description 06/19/2021 Orders Only Department of Radiology, Sal Wallace, [place], [place] [address] [place] [address] [place] [phone] Social History Tobacco Use Types Packs/Day Years [...] or relatives? How often do you attend methodist or Never 2020 adventism services? Do you belong to any clubs or No 06/25/2021 organizations such as methodist groups, unions, [facility] or athletic groups, or school groups? How [...] place to sleep or slept in a halfway (including now)? Sex Assigned at Date Recorded Female 04/12/2018 10:21 PM CDT documented as of this encounter Plan of Treatment Scheduled Referrals Name Type Priority Associated Order Schedule Diagnoses Interventional Outpatient Referral Routine Expect ed: Radiology office visit 06/20, (clinic) Expires: 06/19/2024 documented as of this encounter Visit Diagnoses Not on filedocumented in this encounter Additional Health Concerns Assessment Noted Time PHQ-9 Depression Total Score: 1 11/16/2012 11:45 AM CS T documented as of this encounter
--- OUTSIDE RECORDS SUMMARY | 2022-07-09 20:39 | XMS_ITS | Encounter Summary ---
:1990 Author Organization [facility] Address [address] [place] [address] Care Team Providers Name Role Phone Unavailable Primary Care Provider Unavailable Reason for Visit Outpatient (Routine) - Closed Specialty Diagnoses / Procedures Referred By Contact Refer red To Contact Radiology Oneida De León APRN, C.N.PWander, [facility] M.S.N. [address] [place] [phone] Referral ID Status Reason Start Date Expiration Date Visits Requ ested Visits Authorized [id number] Closed 10/23/2021 10/23/2022 1 1 Encounter Details Date Type Department Care Team Description 12/22/2021 Virtual Visit Department of Radiology, Mirza De León APRN C.N.P., M.S.N. [address] [place] [phone] [place], in Silvana Loja P.A.-C. [address] [place] [phone] [phone] Social History Tobacco Use Types Packs/Day Years [...] or relatives? How often do you attend hinduism or Never 2020 taoist services? Do you belong to any clubs or No 06/25/2021 organizations such as hinduism groups, unions, fraternal or athletic groups, or [...] place to sleep or slept in a care home (including now)? Education Answer Date Recorded What is the highest level of school you have GED or equivale nt 06/25/2021 completed or the highest degree you have received? Sex Assigned at Date Recorded Female 04/12/2018 10:21 PM CDT documented as of this encounter Progress Notes Silvana Loja P.A.-C. - 12/22/2021 8:30 AM CDT Called pt. 6 month f/u post AWE ablation. Pt did not answer. Message left for her to return the call. Oneida De León APRN, C.N.P., M.S.N. - 12/22/2021 8:[address] ABLATION PROGRESS NOTE Phone Consult SUBJECTIVE This patient is post-procedure 6 months from percutaneous ablation of AWE. This patient did well post-procedure and was discharged from the post-procedure area to local lodging. Initially, her pain wascompletely resolved. Over the past several months, morning nausea and pain with menstrual cycle havereturn to preprocedural pain levels. Unfortunately, the patient had missed follow-up appointments and imaging scans that were schedule due to COVID diagnosis. She states that she received an injection (unsure of the name) over the past several months that assisted with the AWE pain. She states that she was told she is unable to receive any more of these injections until she does her follow-up with imaging and the gynecology team. I am uncertain as to what medications she is referring to and do not see any relevant notes in her charts here or locally. OBJECTIVE CURRENT MEDICATIONS Current Outpatient Medications on [...] Take 75 mg by mouth at bedtime. No current facility-administered medications on file prior to visit. VITAL SIGNS There were no vitals filed for this visit. ALLERGIES Allergies Allergen Reactions ??? House Dust Other (see comments) Cough, eyes watery and red, throat tickles and runny nose ??? Cat Dander Hivaviva has allergy to cats ASSESSMENT/PLAN #1 6 months post AWE ablation procedure Unfortunately, it appears the patient has recurrence of AWE given symptoms of return of pain with menstrual cycle and morning nausea. I encouraged her to reach out to the gynecology team to reschedule her updated imaging and see if they have any additional suggestions or if she might be a candidate for repeat ablation. I spent 5 minutes in discussion with [...]
--- OUTSIDE RECORDS SUMMARY | 2022-07-09 20:39 | XMS_ITS | Encounter Summary ---
:1990 Author Organization [facility] Address [address] [place] [address] Care Team Providers Name Role Phone Unavailable Primary Care Provider Unavailable Reason for Referral Outpatient (Routine) - Closed Specialty Diagnoses / Procedures Referred By Contact Refer red To Contact Radiology Oneida De León [facility] [address] [place] [phone] Referral ID Status Reason Start Date Expiration Date Visits Requ ested Visits Authorized [id number] Closed 10/23/2021 10/23/2022 1 1 Scheduling Instructions Phone call f/u INAL PROFILER Encounter Details Date Type Department Care Team Description 10/23/2021 Orders Only Department of Radiology, [facility] C[facility]., M.S.N . [place], [place] [address] [place] [address] [address] [place] [phone] (Wo rk) Social History Tobacco Use Types [...] or relatives? How often do you attend religious or Never 2020 mu-ism services? Do you belong to any clubs or No 06/25/2021 organizations such as religious groups, unions, fraternal or athletic groups, or [...] place to sleep or slept in a intermediate (including now)? Education Answer Date Recorded What [...] Referral Routine Expect ed: Radiology office visit 12/21, (clinic) Expires: 01/21/2023 documented as of this encounter Visit Diagnoses Not on filedocumented in this encounter Additional Health Concerns Assessment Noted Time PHQ-9 Depression Total Score: 1 11/16/2012 11:45 AM CS T documented as of this encounter
--- OUTSIDE RECORDS SUMMARY | 2022-07-09 20:39 | XMS_ITS | Encounter Summary ---
:1990 Author Organization [facility] Address [address] [place] [address] Care Team Providers Name Role Phone Unavailable Primary Care Provider Unavailable Encounter Details Date Type Department Care Team Description 12/23/2021 Clinical Communication Department of Matthew Andrade, Radiology, Silvana Menchaca M.D. [facility], in [address] [place] [phone] [place], [place] [phone] (Work) [phone] Social History Tobacco Use Types Packs/Day Years [...] do you attend gnosticism or Never 2020 zoroastrian services? Do you belong to any clubs [...] this encounter Miscellaneous Notes Telephone Encounter - Leonardo Harvey - 12/23/2021 3:00 PM CDT Good Afternoon - Ms. Medina called in this afternoon. She missed her telephone visit yesterday and was calling in. She can be reached at . -Leonardo documented in this encounter Plan of Treatment Not on filedocumented as of this encounter Visit Diagnoses Not on filedocumented in this encounter Additional Health Concerns Assessment Noted Time PHQ-9 Depression Total Score: 1 11/16/2012 11:45 AM CS T documented as of this encounter
--- OUTSIDE RECORDS SUMMARY | 2022-07-09 20:39 | XMS_ITS | Encounter Summary ---
:1990 Author Organization [facility] Address [address] [place] [address] Care Team Providers Name Role Phone Unavailable Primary Care Provider Unavailable Encounter Details Date Type Department Care Team Description 07/01/2021 Orders Only Department of Radiology, Bayron Lomeli R.N. [facility], in [address] [place], [place] [address] [place] [phone] [place] [phone] Social History Tobacco Use Types Packs/Day Years [...] or relatives? How often do you attend jewish or Never 2020 scientologist services? Do you belong to any clubs or No 06/25/2021 organizations such as jewish groups, unions, fraternal or athletic groups, or [...] place to sleep or slept in a fpc (including now)? Education Answer Date Recorded What [...]
--- OUTSIDE RECORDS SUMMARY | 2022-07-09 20:39 | XMS_ITS | Encounter Summary ---
:1990 Author Organization [facility] [place] [facility] Address [address] [place] [address] Care Team Providers Name Role Phone Unavailable Primary Care Provider Unavailable Reason for Referral Outpatient (Routine) - Closed Specialty Diagnoses / Procedures Referred By Contact Refer red To Contact Diagnoses Lesion Soft Tissue Matthew Andrade M.D. [facility] Procedures US Assisted Guidance [address] [place] [phone] Referral ID Status Reason Start Date Expiration Date Visits Requ ested Visits Authorized [id number] Closed 05/08/2021 05/08/2022 1 1 Reason for Visit Auth/Cert Specialty Diagnoses / Procedures Referred By Contact Refer red To Contact Diagnoses Lesion Soft Tissue Procedures CT SOFT TISSUE ABLATION OP Referral ID Status Reason Start Date Expiration Date Visits Requ ested Visits Authorized [id number] 1 1 Encounter Details Date Type Department Care Team Description 06/19/2021 Hospital Encounter Department of Matthew Andrade Lesion Soft Tissue Radiology, Greta Esparza M.D. [place], in [place], [address] [place] [address] [place] [phone] [place], [place] [phone] (Work) [phone] Social History Tobacco Use Types Packs/Day Years [...] or relatives? How often do you attend druze or Never 2020 church services? Do you belong to any clubs or No 06/25/2021 organizations such as druze groups, unions, fraternal or athletic groups, or [...] place to sleep or slept in a half-way (including now)? Sex Assigned at Date Recorded [...] Procedure Name Priority Date/Time Associated Comments Diagnosis US ASSISTED RAD - Routine 06/19/2021 1:48 Lesion Soft Results for this GUIDANCE (most inpatients PM CDT Tissue procedure a re in and all the results outpatients) section. documented in this encounter Results US Assisted Guidance (06/19/2021 1:48 PM CDT) Anatomical Region Laterality Modality Procedural, Ultrasound RST LOS, Ultrasound ARZ LOS, Procedur e N/A Ultrasound FLA LOS Specimen (Source) Anatomical Collection Method Collection Time Re ceived Time Location / / Volume Laterality 06/19/2021 3:16 PM CDT Impressions 06/19/2021 3:19 PM CDT Percutaneous cryoablation of endometriosis in the left abdominal wall. NR Narrative 06/19/2021 3:19 PM CDT EXAM: CT SOFT TISSUE ABLATION, US ASSISTED GUIDANCE PRE-PROCEDURE: Patient seen, evaluated, and history reviewed. Discussed risks, benefits, alternatives for procedure, an d obtained informed consent. Patient understands information and questions an swered. Immediately prior to starting the procedure, in the presence of the as sisting personnel, procedural pause was conducted to verify correct patient iden tity and verification of procedure to be performed, and as applicable, correct si de and site, correct patient position, availability of implants, special equipm ent, or special requirements, and all image and specimen identification data. The roles and responsibilities of care team members, residents, and fellows wer e discussed. Sedation provided by [employer]. The risks, benefits, and alternatives to the planned procedure were discussed in detail, including the risk of exposure t o COVID-19 within the facility. Careful consideration was given to the urgency o f the procedure, which has been reviewed and confirmed by practice leadership. Ad ditional consideration has been given to the availability of staff, supplies and equipment, including but not limited to a post-operative bed, a ventilator in th e intensive care unit, blood products, and personal protective equipment. All q uestions pertaining to the procedure and these risks were answered, and the patie nt agreed to proceed. TECHNIQUE: Using sterile technique, ultr asound and CT guidance, and general anesthesia, percutaneous image-guided ab lation was performed. Prior to probe placement, 22-gauge spinal needle was pl aced between the targeted mass and the underlying abdominal wall. Saline was in stilled to hydro-displace the target from the abdominal wall musculature. Add itional saline was placed between the skin and the target to minimize the risk of freezing the skin. 50 mL of saline total were instilled. Following ablation , 6 mL of 0.25% bupivacaine were instilled along and within the left abdo emiliano wall near the ablation site. TARGET LESION AND LOCATION: Left abdomin al wall ABLATIVE METHOD: Cryoablation. PRESUMED OR KNOWN TUMOR TYPE: Endometrio sis TARGET LESION SIZE: 1.5 cm x 1.5 cm x 1. 5 cm PROBES: 2 x Galil IceForce DURATION: 8 min freeze, 5 min active tim w, 6 min freeze, 14 min active thaw. BIOPSY: Not performed today. COMPLICATION: None. BLOOD LOSS: Less than 5 mL. FINDINGS: The ablation zone encompasses the targeted left abdominal wall mass. Expected fluid in the subcutaneous fat f rom hydro-displacement and ablation. Procedure Note Matthew Andrade M.D. - 06/19/2021Format ting of this note might be different from the original. EXAM: CT SOFT TISSUE ABLATION, US ASSIST ED GUIDANCE PRE-PROCEDURE: Patient seen, evaluated, and history reviewed. Discussed risks, benefits, alternatives for procedure, an jyotsna obtained informed consent. Patient understands information and questions an swered. Immediately prior to starting the procedure, in the presence of the as sisting personnel, procedural pause was conducted to verify correct patient iden tity and verification of procedure to be performed, and as applicable, correct si de and site, correct patient position, availability of implants, special equipm ent, or special requirements, and all image and specimen identification data. The roles and responsibilities of care team members, residents, and fellows wer e discussed. Sedation provided by [employer]. The risks, benefits, and alternatives to the planned procedure were discussed in detail, including the risk of exposure t o COVID-19 within the facility. Careful consideration was given to the urgency o f the procedure, which has been reviewed and confirmed by practice leadership. Ad ditional consideration has been given to the availability of staff, supplies and equipment, including but not limited to a post-operative bed, a ventilator in e intensive care unit, blood products, and personal protective equipment. All q uestions pertaining to the procedure and these risks were answered, and the patie nt agreed to proceed. TECHNIQUE: Using sterile technique, ultr asound and CT guidance, and general anesthesia, percutaneous image-guided ab lation was performed. Prior to probe placement, 22-gauge spinal needle was pl aced between the targeted mass and the underlying abdominal wall. Saline was in stilled to hydro-displace the target from the abdominal wall musculature. Add itional saline was placed between the skin and the target to minimize the risk of freezing the skin. 50 mL of saline total were instilled. Following ablation , 6 mL of 0.25% bupivacaine were instilled along and within the left abdo emiliano wall near the ablation site. TARGET LESION AND LOCATION: Left abdomin al wall ABLATIVE METHOD: Cryoablation. PRESUMED OR KNOWN TUMOR TYPE: Endometrio sis TARGET LESION SIZE: 1.5 cm x 1.5 cm x 1. 5 cm PROBES: 2 x Galil IceForce DURATION: 8 min freeze, 5 min active tim w, 6 min freeze, 14 min active thaw. BIOPSY: Not performed today. COMPLICATION: None. BLOOD LOSS: Less than 5 mL. FINDINGS: The ablation zone encompasses the targeted left abdominal wall mass. Expected fluid in the subcutaneous fat f rom hydro-displacement and ablation. IMPRESSION: Percutaneous cryoablation of endometrios is in the left abdominal wall. NR Matthew ELIZABETH US PROCEDURES documented in this encounter Visit Diagnoses Diagnosis Lesion Soft Tissue documented in this encounter Additional Health Concerns Assessment Noted Time PHQ-9 Depression Total Score: 1 11/16/2012 11:45 AM CS T documented as of this encounter
--- OUTSIDE RECORDS SUMMARY | 2022-07-09 20:39 | XMS_ITS | Encounter Summary ---
:1990 Author Organization [facility] Address [address] [place] [address] Care Team Providers Name Role Phone Unavailable Primary Care Provider Unavailable Encounter Details Date Type Department Care Team Description 05/08/2021 Documentation Preoperative Evaluation Shefali Gonzalez, [facility] L[facility]R .T. [place] [address] [place] [phone] Social History Tobacco Use Types Packs/Day Years [...] or relatives? How often do you attend mandaen or Never 2020 zoroastrian services? Do you belong to any clubs or No 06/25/2021 organizations such as mandaen groups, unions, fraternal or athletic groups, or [...] documented as of this encounter Progress Notes Shefali Gonzalez, C[facility]lle., L.R.T. - 05/08/2021 10:01 AM CDT There was a complete review of the EMR (Electronic Medical Record) to ascertain if a BRITTANY (Pre-Op Exam) appointment is needed. Scheduled for soft tissue ablation on 06/19/2021 to be performed by Matthew Andrade The following portions of the patient's history were reviewed and updated as appropriate: allergies,family history, social history and surgical history. Based upon information available in the EMR, patient can proceed directly to the OR (operating room)for the planned procedure. Physical exam to be done by anesthesia the morning of procedure. If the patient is on anticoagulation or antiplatelet agents, perioperative management is arranged bythe surgical service as indicated. The patient should skip all oral anti-diabetic agents, NABILA (bpqwnzkarmk-lzuxlurown-eaqwaq) inhibitors, diuretics, ARB's (angiotensin receptor blockers) and tobacco products on the day of the procedure. This is a BRITTANY pre-screening note. The patient was not seen in BRITTANY. Preoperative evaluation and assessment Do you have heart problems : No Do you have any difficulties or need assistance activities of daily living: No Do you have any bleeding problems or are you taking any blood thinners No Do you have diabetes No Do you have breathing problems No Have you had a stroke, TIA, or seizures No Do you have kidney or liver problems No Is your BMI >40? Yes Do you take more than five prescriptions medications No Do you have chronic pain that requires daily prescription pain medications No Age: 30 Patient Risk Factor Score: 1 Surgical Risk Category: 2 Per Preoperative Medical Assessment and Evaluation Types; the patient meets: (X) Fast Track documented in this encounter Plan of Treatment Not on filedocumented as of this encounter Visit Diagnoses Not on filedocumented in this encounter Additional Health Concerns Assessment Noted Time PHQ-9 Depression Total Score: 1 11/16/2012 11:45 AM CS T documented as of this encounter
--- OUTSIDE RECORDS SUMMARY | 2022-07-09 20:39 | XMS_ITS | Encounter Summary ---
:1990 Author Organization [facility] Address [address] [place] [address] Care Team Providers Name Role Phone Unavailable Primary Care Provider Unavailable Encounter Details Date Type Department Care Team Description 06/24/2021 Orders Only Department of Ruby Veras Endometriosi s In Cutaneous Scar (Primary Dx); Obstetrics and R.N. Pain Pelvic Female; Gynecology in [address] [place] [address] Endometriosis [place], [place] [address] [place] [phone] [place] [address] Social History Tobacco Use Types Packs/Day Years [...] or relatives? How often do you attend christianity or Never 2020 jain services? Do you belong to any clubs or No 06/25/2021 organizations such as christianity groups, unions, fraternal or athletic groups, or [...] place to sleep or slept in a jail (including now)? Sex Assigned at Date Recorded Female 04/12/2018 10:21 PM CDT documented as of this encounter Plan of Treatment Not on filedocumented as of this encounter Visit Diagnoses Diagnosis Endometriosis In Cutaneous Scar - Primar y Pain Pelvic Female Endometriosis documented in this encounter Additional Health Concerns Assessment Noted Time PHQ-9 Depression Total Score: 1 11/16/2012 11:45 AM CS T documented as of this encounter
--- OUTSIDE RECORDS SUMMARY | 2022-07-09 20:39 | XMS_ITS | Encounter Summary ---
:1990 Author Organization [facility] Address [address] [place] [address] Care Team Providers Name Role Phone Unavailable Primary Care Provider Unavailable Reason for Referral MRI/CAT/PET Scan (Routine) - Closed Specialty Diagnoses / Procedures Referred By Contact Refer red To Contact Radiology Diagnoses Lesion Soft Tissue Matthew Andrade M.D. [facility] Procedures CT Soft Tissue Ablation [address] [place] [address] Referral ID Status Reason Start Date Expiration Date Visits Requ ested Visits Authorized [id number] Closed 05/08/2021 05/08/2022 1 1 Reason for Visit Auth/Cert Specialty Diagnoses / Procedures Referred By Contact Refer red To Contact Diagnoses Lesion Soft Tissue Procedures CT SOFT TISSUE ABLATION OP Referral ID Status Reason Start Date Expiration Date Visits Requ ested Visits Authorized [id number] 1 1 Encounter Details Date Type Department Care Team Description 06/19/2021 Hospital Encounter Department of Matthew Andrade Lesion Soft Tissue Radiology, Silvana Esparza M.D. [facility], in [address] [place] [address] [place] [phone] [place], [place] [phone] (Work) [phone] Social History Tobacco Use Types Packs/Day Years [...] or relatives? How often do you attend amish or Never 2020 methodist services? Do you belong to any clubs or No 06/25/2021 organizations such as amish groups, unions, fraternal or athletic groups, or [...] PM CDT documented as of this encounter Last Filed Vital Signs Vital Sign Reading Time Taken Comments Blood Pressure 124/70 06/19/2021 3:15 PM CDT Pulse 68 06/19/2021 3:15 PM CDT Temperature 36.8 ??C (98.2 ??F) 06/19/2021 2:13 PM CDT Respiratory Rate 14 06/19/2021 3:15 PM CDT Oxygen Saturation 93% 06/19/2021 3:15 PM CDT Inhaled Oxygen Concentration - - Weight 106 kg (234 lb 2.1 oz) 06/19/2021 9:53 AM CDT Height - - Body Mass Index 46.58 02/17/2021 2:19 PM CDT documented in this encounter Discharge Instructions Discharge Instr - Oneida Chirinos APRN, C.N.P., M.S.N. - 06/18/2021 9:02 AM CDT Medications: She should continue to take tylenol on a schedule as bupivacaine will wear off in 4-6 hours. Starting 24 hours post-procedure, can alternate tylenol and ibuprofen for pain control. Care for the percutaneous puncture site Keep dressing in place over puncture site for 24-48 hours. 24-48 hours after procedure, it is okay to shower. Remove the dressing and clean and rinse the puncture site gently with soap and water. If there is drainage or crusting at the insertion site, gently but thoroughly clean the site using awash cloth or cotton tip swab with soap and water. After removing the dressing and cleaning the site, allow the area to air-dry or pat dry with a cleantowel. Reapply a Band-Aid to the puncture site or leave open to air. Do not submerge puncture site in water such as tub bathing or swimming until completely healed. No vigorous activities for 24 hours, then advance activity as tolerated. Limit lifting to less than 10 pounds for one week. Seeking emergency care Contact your health care provider immediately or seek emergency care for the following symptoms: A temperature of 101 degrees Fahrenheit (38.3 degrees Celsius) or higher Chills Severe abdominal pain Drainage that has blood in it for more than 24 hours. For nonemergent questions or concerns: If you have questions related to the ablation procedure, please contact [phone] Wednesday through Wednesday 8AM-5PM. If on weekends or nights, please contact the [facility] molded goods controls operator ([phone]) and ask to be connected to the non-vascular interventional radiology fellow reception manager. AttachmentsThe following attachments cannot be sent through Care Everywhere. Instructions After Sedation or Anesthesia for Adults (Belizean)documented in this encounter Medications at Time of [...] at bedtime. documented as of this encounter Progress Notes Oneida De León APRN, C.N.P., M.S.N. - 06/19/2021 1:[address] ABLATION NOTE CHIEF COMPLAINT / PURPOSE FOR VISIT Percutaneous cryoablation of endometriosis in the left abdominal wall without complication. HISTORY OF PRESENT ILLNESS Barbra Medina is a 30 y.o. female from [place], [place] now s/p ablation for left lower quadrant abdominal wall endometriosis. Doing well in post-procedure area without N/V, uncontrolled pain, or difficulty speaking or swallowing, voiding and walking without issue. Post-procedural communication sent to the referring provider: Dr. Barrios We discussed pre-procedure during consult of the possibility of need for steroid taper. The procedure did not involve a large amount of abdominal wall muscle, so we decided it was not necessary. She will be given tylenol before discharge-- but did not feel particular pain with the bupivacaine post-procedure. She should continue to take tylenol on a schedule as this will wear off in 4-6 hours. Starting 24 hours post-procedure, can alternate tylenol and ibuprofen for pain control. Reporting 0/10 pain post-procedure. CURRENT MEDICATIONS No current facility-administered medications on file prior to encounter. Current Outpatient Medications on File Prior to Encounter Medication Sig Dispense Refill ??? albuterol (PROVENTIL [...] Take 75 mg by mouth at bedtime. VITAL SIGNS Vitals: 06/19/21 0953 BP: 130/71 Temp: 36.8 ??C SpO2: 97% ALLERGIES Allergies Allergen Reactions ??? House Dust Other (see comments) Cough, eyes watery and red, throat tickles and runny nose ??? Cat Dander Hives has allergy to cats ASSESSMENT/PLAN - Post-procedure care: Puncture site care per AVS. - Antibiotics - Cefazolin given prior to procedure. No ongoing antibiotics required. - Anticoagulation - Hold X 24 hours, then as needed. - Diet: as tolerated - Activity: Out of bed as tolerated. No vigorous activities for 24 hours, then advance activity as tolerated. Limit lifting to less than 10 pounds for one week. - Pain: Tylenol 1 gm po q 6 hr as needed. May start alternating tylenol and ibuprofen starting 24 hours post-procedure. - Skin: Patient reports difficulty with an odor that comes from the suprapubic area under the pannus. She has cleaned this area with alcohol for some time, but still notes is has an odor. She has had previous providers look at this area without recommendations for what she should do. I recommend not putting any ointments or powders on this area while the procedural wounds are healing. She should washthis with gentle soap and water, patting dry. Once healed-- She could try a thin layer of anti-fungal ointment twice daily after cleansing/drying. If after several days of this it does not improve-- she should stop and see her GP. - Disposition: Okay for dismissal when stable, O2 sats stable over 90%, and meets PACU dismissal criteria. For any questions or concerns regarding this patient please page Ablation Radiology nurse at [phone] Wednesday through Wednesday 7 a.m. to 5 p.m. or the [facility] molded goods controls operator ([phone]) and ask paulino connected to the non-vascular interventional radiology fellow reception manager. documented in this encounter Plan of Treatment Not on filedocumented as of this encounter Procedures Procedure Name Priority Date/Time Associated Comments Diagnosis CT SOFT TISSUE RAD - Routine 06/19/2021 2:04 Lesion Soft Results f or this ABLATION (most inpatients PM CDT Tissue procedure a re in and all the results outpatients) section. ADULT OXYGEN Routine 06/19/2021 1:29 THERAPY PM CDT documented in this encounter Results CT Soft Tissue Ablation (06/19/2021 2:04 PM CDT) Anatomical Region Laterality Modality Whole body, Abdominal RST LOS, N/A Computed Tomography, Computed Neuroradiology ARZ LOS, Vascular Tomogra phy Interventional ARZ LOS, Vascular Interventional FLA LOS, Procedural Specimen (Source) Anatomical Collection Method Collection Time [...] fellows wer e discussed. Sedation provided by [facility]. The risks, benefits, and alternatives to the [...] fellows wer e discussed. Sedation provided by [facility]. The risks, benefits, and alternatives to the [...] the left abdominal wall. NR Matthew ELIZABETH CT PROCEDURES documented in this encounter Visit Diagnoses Diagnosis Lesion Soft Tissue documented in this encounter Administered Medications Inactive Administered Medications - up to 3 most recent administrations Medication Order MAR Action Action Date Dose Rate Site acetaminophen tablet 650 mg (TYLENOL) 650 mg, oral, Every 4 hours PRN, mild pain or score 1- 3 of 10, Starting on Ene 06/19/21 at 1537 bupivacaine PF 0.25 % (2.5 mg/mL) Given 06/19/2021 1:07 6 mL Abdominal Tissue injection (MARCAINE) PM CDT Code/trauma/sedation medication, Starting on Ene 06/19/21 at 1307 sodium chloride 0.9 % injection 10 mL 10 mL, intravenous, As needed, line care, Starting on Ene 06/19/21 at 0948, Preprocedure (RAD), Peripheral Intraveno us Catheter and Rapid Infusion Catheter, prior to blood sampling, post blood transfusion or pos t blood sampling sodium chloride 0.9 % injection 3 mL 3 mL, intravenous, As needed, line care, Starting on T hu 06/19/21 at 0948, Preprocedure (RAD), Prior to and following infusion an d between multiple consecutive infusions: sodium chloride 0.9 % injection sodium chloride 0.9 % injection 3 mL 3 mL, intravenous, Every 12 hours scheduled, First dos e on Ene 06/19/21 at 2100, Preprocedure (RAD), Peripheral Intraveno us Catheter and Rapid Infusion Catheter, when no infusion to maintain patency documented in this encounter Active and Recently Administered Medications Times are shown in CDT. Scheduled Medication Order 06/17/2021 06/18/2021 06/19/2021 sodium chloride 0.9 % injection 3 mL 3 mL, intravenous, Every 12 hours schedu led, First dose on Ene 06/19/21 at 2100, Preprocedure (RAD), Peripheral Intravenous Catheter and Rapid Infusion Catheter, when no infusion to maintain patency Continuous Medication Order 06/17/2021 06/18/2021 06/19/2021 dexmedeTOMIDine 4 mcg/mL in NaCl 0.9% 100 mL infusion (PRECEDEX) (CANCELED) 1059 (New Bag - Provider: Tate Almanza APRN, RUSSELL, MNA)1101 (Rate/Dose Change - Provider: Tate Almanza APRN, RUSSELL, MNA)1250 (Rate/Dose Change - Provider: Lucy Long APRN, RUSSELL, DNAP) 0.1-1.5 mcg/kg/hr ? 110 kg Order-specific weight (2.75-41.25 mL/hr), intravenous, Continuous, Starting on Ene 06/19/21 at 1030, Intra-Op, In OR 400 mcg in 100 mL, Initiate at: Other, Rate: Per Provider, 1320 (Stopped - Provider: Lucy Long, DATA MANAGEMENT ASSOCIATE, [facility], DNAP) Titrate at: Other, Titrate: Per Provide r, Goal: Other, Goal: Per Provider, Restriction Criteria (Pharmacy will review and approve if criteria met): INITIATED and MAINTAINED only in patients in the operating rooms or in the intensive care unit lactated ringers 1300 (Due) 20 mL/hr, intravenous, at 20 mL/hr, Cont inuous, Starting on Ene 06/19/21 at 1300, PACU & Post-Op lactated ringers 1300 (Due) 20 mL/hr, intravenous, at 20 mL/hr, Cont inuous, Starting on Ene 06/19/21 at 1300, PACU & Post-Op PRN Medication Order 06/17/2021 06/18/2021 06/19/2021 acetaminophen tablet 650 mg (TYLENOL) 650 mg, oral, Every 4 hours PRN, mild pa in or score 1-3 of 10, Starting on Ene 06/19/21 at 1537 bupivacaine PF 0.25 % (2.5 mg/mL) injection (MARCAINE) (CANCELED ) 1307 (Given - Provider: Matthew Andrade M.D.) Code/trauma/sedation medication, Starting on Ene 06/19/21 at 1307 HYDROmorphone (PF) injection 0.2 mg (DILAUDID) 0.2 mg, intravenous, Every 5 min PRN, mo derate pain or score 4-6 of 10, severe pain or score 7-10 of 10, Starting on Ene 06/19/21 at 1329, PACU (only), Up to maximum total dose of 2 mg ketamine injection 10 mg (KETALAR) 10 mg, intravenous, Once as needed, Refr actory moderate pain or score 4-6 of 10, Refractory severe pain score 7-10 of 10 after fentanyl or hydromorphone administration, Pain sedation mismatch AND RASS l ess than -1, Starting on Ene 06/19/21 at 1329, For 1 dose, PACU ( only) sodium chloride 0.9 % injection 10 mL 10 mL, intravenous, As needed, line care , Starting on Ene 06/19/21 at 0948, Preprocedure (RAD), Peripheral Intravenous Catheter and Rapid Infusion Catheter, prior to blood sampling, post blood transfusion or post blood sampling sodium chloride 0.9 % injection 3 mL 3 mL, intravenous, As needed, line care, Starting on Ene 06/19/21 at 0948, Preprocedure (RAD), Prior to and following infusion and between multiple consecutive infusions: sodium chloride 0.9 % injection documented in this encounter Additional Health Concerns Assessment Noted Time PHQ-9 Depression Total Score: 1 11/16/2012 11:45 AM CS T documented as of this encounter
--- OUTSIDE RECORDS SUMMARY | 2022-07-09 20:39 | XMS_ITS | Encounter Summary ---
:1990 Author Organization [facility] Address [address] [place] [id number] Care Team Providers Name Role Phone Unavailable Primary Care Provider Unavailable Reason for Visit Outpatient (Routine) - Closed Specialty Diagnoses / Referred By Contact Referred To Contact Procedures Interventional Pain Diagnoses Pain Pelvic Female Nate Barrios, Luda Foster, Medicine / Pain Medicine Procedures PM THER CPM GROUP SELAM Bethea APRN, M.S. [address] [facility] [address] [place] [phone] Fax: Referral ID Status Reason Start Date Expiration Date Visits Requ ested Visits Authorized [id number] Closed 05/21/2021 05/21/2022 1 1 Encounter Details Date Type Department Care Team Description 05/21/2021 Clinical Support Division of Pain Luda Foster, Pain Pelvic Female Medicine in SELAM QUIROZ, M.S. (Primary Dx) [place], [place] [address] [place] [address] [place] [phone] Social History Tobacco Use Types Packs/Day Years [...] do you attend druze or Never 2020 druze services? Do you belong to any clubs [...] documented as of this encounter Progress Notes Luda Foster APRN, CNS, M.S. - 05/21/2021 1:30 PM CDT SUBJECTIVE REASON FOR VISIT Pain Clinic Chronic Pain Management Group visit. CHIEF COMPLAINT [facility] Pain Management Cognitive Behavioral Therapy Program for management of Chronic Pain. Patient attended the [facility] group Program total time of 135 minutes. HISTORY OF PRESENT ILLNESS Barbra Medina is a 30 y.o. female, who attended the Cognitive Behavioral program focused on functional adaptation to chronic pain, facilitated by: SELAM Landrum APRN. She was 1 of 4 patients and family present. I reviewed the patient's medical history and facilitated the group with patient involvement for 135 minutes. I would direct the interested reader to notes by Katya Hernandez APRN, CNP for full details and pain history dated May 06, 2021. Diagnosis: #1 Pelvic pain female ASSESSMENT / PLAN Barbra Medina attended the Cognitive Behavioral Group visit which focused on functional adaptation to chronic pain. Topics discussed include understanding chronic pain, acute vs. chronicpain, tje-ksjwwl-whefde perspectives impacted by the cycle of pain and review of the pain cycle in order to identify patterns of thoughts and behaviors that have impaired function and quality of life. Begin discussion on how to make changes using rehabilitative strategies such as goal setting, use of cognitive behavioral therapy in managing problematic mood, thoughts and behaviors related to chronic pain, benefits of exercise, sleep hygiene, stress management, appropriate use of medications, problems related to pain behaviors, and benefits of relaxation. Learning methods used: Class/Group, Demonstration, Discussion, Explanation, Examples, Handouts. Therapeutic interventions: Encouraging group members to provide input in discussion as to how their liveshave been affected by chronic pain. Therapist will assist participants with identification of goals toward self-management of chronic pain. Mood: Euthymic. Behaviors/level of attentiveness, participation level: very active in discussion, asking appropriatequestions in attempts to understand. Summary group session: Very open to discussion on how to use self-management strategies to manage chronic pain, specifically cognitive behavioral therapy. Patient appreciative of additional educationalmaterials provided. She is especially interested utilizing sleep hygiene strategies. Educational materials provided to the patient include: Understanding Chronic Pain (MJ0210-16) What Is Cognitive Behavioral Therapy (CBT)? (XH5462) Cognitive Coping Skills: Changing Your Thought About Chronic Pain and Illness (WS2296-65) Anxiety and Chronic Pain or Illness (ET9414-91) Chronic Pain or Illness: Relaxation Skills (AA7936-57) Stress Management (UZ1247) Relaxed Breathing (Diaphragmatic) (NQ1071) Moderation/Modification for Chronic Conditions (FE5022-99) Perfectionism (TD6118-79) Self-Talk for Better Sleep (SN5928) Some Facts to Help You Sleep (JO7445-08) The patient was provided with the following relaxation CD and instructed to use it on a daily basis: Relaxation for Your Mind and Body (FS8316) The patient was provided the following educational DVDs: Living in the Moment (JH4463) Mindful Movements: Gentle Yoga (TH9885-35) Gentle Movements: Cam Chi Qigong (NT8204) Paced Breathing Meditation (LQ3654-46) Understanding Central Sensitization (MP5809) Additional web links: Patient enjoys online educational resources. The following TEDx talk topics were provided: ??? Karol Rogel on self-compassion ??? Rand Bobby on perfectionism ??? Caden Louis M.D.on mindfulness, resiliency and stress management ??? Caden Louis on happy brain: how to overcome our neural predispositions to suffering ??? Eladia Aguilar on stress management ??? Luiz Johnson on happiness and gratitude ??? Kaleigh Thomas on behavior change ??? Chinmay Fox on self esteem ??? Sabina Lynn on mindfulness over matter ??? Tame the beast-It's time to rethink persistent pain -commercetoolsube Additional websites for online learning: Understanding Pain in Less than 5 minutes https://www.commercetoolsube.com/watch?v=C_3phB93rvI Understanding Pain: Sheyla stops his opioids https://www.commercetoolsube.com/watch?v=QA5xbKUPwHR Sheyla Chooses https://www.commercetoolsube.com/watch?v=lDcg5mH5zLE https://www.retrainpain.org/japanese Taming the Beast Dr. Manish Weeks https://www.commercetoolsube.com/watch?v=neMgcGlg8K7 Understanding Central Sensitization Chapter 1 NF4121-13 https://www.[facility].org/patient-education?VID=vid-96612049 Understanding Central Sensitization Chapter 2 Calming Central Sensitization UD6174-95 https://www.[facility].org/patient-education?VID=vid-81415150 Dr. Kev Brandon Central Sensitization https://www.commercetoolsube.com/watch?v=3svpH0lSynt Neuroplasticity made simple: Valentín Johns, PhD researcher - [employer] https://www.commercetoolsube.com/watch?v=uX09bSHKJbC Dr. Brian Willis breathing exercise Sleep in 60 seconds https://www.commercetoolsube.com/watch?v=mz7K00REhsv Dr. Brian Willis breathing exercises Three Breathing Exercises http://www.finn.Iceni [employer]/nita/u/WZE21147/lnxbe-xugvnmhnw-mdkzkabgf.html. Chronic Pain: Take Steps to Regain Your Life Qv3945 https://askmayoexpert.[facility].org/document/aueloiy-sqehcroqhuuwt-ntota-strate kuld-vr-bdzg-nkg-btxv-e-kpowmf-nmgwbwe-ip-life/doc-24502115?request_lang=en Smart device apps: Hqfzyr0Lyhww:Breathing pacer: My Calm Beat BellyBio Interactive Breathing MeMoves: Calming movement activities Patient enjoys learning through reading and the following supplemental reading list was provided: ??? Back in Control by Dr. Delfino Orozco www.Plei.[employer]eni Technology ??? A Calm Brain by Dr. Lauren Castanon ??? Timeless Healing by Dr. Asael Holt ??? Women's Bodies, Women's Hall and other books by Dr. Mariajose Steiner ??? The [facility] Handbook for Happiness: A Four-Step Plan for Resilient Living by Dr. Caden Louis. ??? No More Sleepless Nights by Leonardo Leong PhD Together we discussed the following Plan: 1. Use of cognitive behavioral therapy strategies in managing chronic pain. If she chooses, it may be helpful to follow with a cognitive behavioral therapist in her local area to assist in changing thoughts and behaviors and improve coping strategies. 2. Relaxation- recommended daily practice of relaxed diaphragmatic breathing. Demonstration providedduring this session. Relaxation DVD???s and CD provided as well. 3. Recommend daily exercise 4. Review of moderation of activity 5. Review of importance of leisure/hobby/fun activities on a daily basis. 6. We did discuss the [facility] 3 week outpatient programwhich may be beneficial if she has difficulty with the application of these strategies. It was a pleasure to meet with Barbra Medina. I provided ample opportunity for questions and all questions were addressed. She verbalized her appreciation of this group and the opportunity to discuss these concepts. Thank you for the referral. Total group time: 135 minutes documented in this encounter Plan of Treatment Not on filedocumented as of this encounter Visit Diagnoses Diagnosis Pain Pelvic Female - Primary documented in this encounter Additional Health Concerns Assessment Noted Time PHQ-9 Depression Total Score: 1 11/16/2012 11:45 AM CS T documented as of this encounter
--- OUTSIDE RECORDS SUMMARY | 2022-07-09 20:39 | XMS_ITS | Encounter Summary ---
:1990 Author Organization [facility] Address [address] [place] [id number] Care Team Providers Name Role Phone Unavailable Primary Care Provider Unavailable Reason for Visit Outpatient (Routine) - Closed Specialty Diagnoses / Procedures Referred By Contact Refer red To Contact Radiology Diagnoses Endometriosis In Cutaneous Scar Pain Left Lower Quadrant Nate Barrios M.D. [facility] [address] [place] [phone] Referral ID Status Reason Start Date Expiration Date Visits Requ ested Visits Authorized [id number] Closed 05/07/2021 05/07/2022 1 1 Encounter Details Date Type Department Care Team Description 05/15/2021 Virtual Visit Department of Nate Barrios M.D. [address] [place] [address] [phone] Endometriosis In Cutaneous Scar; Radiology, Oneida Rosa APRN, C.N.P., M.S.N. [address] [place] [address] [phone] Pain Left Lower Quadrant Building, in Andre Parekh M.D. [address] [place] [phone] [place] [id number] [place] [address] [phone] Social History Tobacco Use Types Packs/Day Years [...] or relatives? How often do you attend hoahaoism or Never 2020 yazidi services? Do you belong to any clubs or No 06/25/2021 organizations such as hoahaoism groups, unions, fraternal or athletic groups, or [...] or slept in a mcc (including now)? Sex Assigned at Date Recorded Female 04/12/2018 10:21 PM CDT documented as of this encounter Consult Notes Oneida De León APRN, C.N.P., M.S.N. - 05/15/2021 10:00 AM CDT IR ABLATION CONSULT The patient was present for a consult via real-time audio technology by Dr. Parekh and Oneida De León APRN, CNP on 05/15/21. REASON FOR CONSULT Chief Complaint/Reason for Consult: Consult and consideration of percutaneous ablation. HISTORY OF PRESENT ILLNESS Barbra Medina is a 30 y.o. female referred for consideration of ablation for left lower quadrant abdominal wall endometriosis. Mrs. Medina is , deliveries x 5, with pathology proven endometriosis in April 2020. Patient reports that she initially sought care from a provider when she noticed she had heavier, longer, and more painful menstrual cycles after her third or fourth and section. Pain in the left lower quadrant has been cyclical and there is a palpable mass. She underwent excision of the mass, but unfortunately developed progressively worsening pain in the LLQ and radiated to the lower back. She has also undergone a variety of hormonal controls to try and resolve the pain, these have also been unsuccessful. Pain today during our visit was 7/10, at it's worst it's a 10/10. She has had to seek medical care to treat the pain when it's most severe. Plan is to cryoablate the prominent endometrial tissue mass on the left lower abdominal region along the section scar. This is scheduled for 06/[address] Andrade. We will plan for post-procedural steroid taper for pain and inflammation. Referring provider: Dr. Barrios Approving provider: Dr. Izabella Medina denies any anti-platelet or anticoagulative medications. Recent pertinent laboratory values include (07/24/21) hemoglobin 13.3, platelets 336, white blood cell count 7.7. Labs will need to be updated before ablation. MEDICATIONS: Current Outpatient Medications: ??? albuterol (PROVENTIL HFA,VENTOLIN HFA) 90 mcg/actuation inhaler, Inhale 1-2 puffs as needed. , Disp: , Rfl: ??? amitriptyline (ELAVIL) 25 mg tablet, Take 25 mg by mouth at bedtime. , Disp: , Rfl: ??? cetirizine (ZyrTEC) 10 mg tablet, Take 10 mg by mouth as needed. , Disp: , Rfl: ??? cholestyramine (QUESTRAN) 4 gram packet, Take 1 packet by mouth as needed. , Disp: , Rfl: ??? ibuprofen (ADVIL,MOTRIN) 200 mg tablet, Take 400 mg by mouth as needed for pain., Disp: , Rfl: ??? metoclopramide (REGLAN) 5 mg tablet, Take 5 mg by mouth as needed. , Disp: , Rfl: ??? ondansetron (ZOFRAN) 4 mg tablet, Take 4 mg by mouth daily. , Disp: , Rfl: 0 ??? sertraline (ZOLOFT) 100 mg tablet, Take 100 mg by mouth at bedtime. , Disp: , Rfl: ??? topiramate (TOPAMAX) 50 mg tablet, Take 50 mg by mouth at bedtime. , Disp: , Rfl: ??? traMADoL (ULTRAM) 50 mg tablet, Take 50 mg by mouth as needed. , Disp: , Rfl: ??? venlafaxine (EFFEXOR) 75 mg tablet, Take 75 mg by mouth at bedtime. , Disp: , Rfl: ALLERGIES Allergies Allergen Reactions ??? House Dust Other (see comments) Cough, eyes watery and red, throat tickles and runny nose ??? Cat Dander Hives has allergy to cats Past Medical History: Diagnosis Date ??? Abnormal Pap Smear Cervix x1, No cervical procedures, repeat normal ??? Adhesion Pelvic Female 07/05/2014 ??? Allergy Initial ??? Body Mass Index 45.0 To 49.9 Adult (HCC) 01/12/2017 Rule activated problem due to BMI 45-49 posted on 01/12 at 08:26 CDT. ??? Deficiency Vitamin D 06/24/2016 ??? Depression Anxiety 03/10/2016 Depression Anxiety ??? Dysmenorrhea ??? Endometriosis ??? Gallbladder Disorder ??? Hirsutism ??? Infection Urinary Tract during pregnacy ??? Labor Greater Than 22 Less Than 37 Week delivery at 32 and 34 weeks ??? Menorrhagia ??? Menstrual Irregularity ??? Migraine Headache ??? Nausea And Vomiting ??? Preeclampsia fourth pregnacy ??? Stone Kidney Personal History 01/12/2017 Past Surgical History: Procedure Laterality Date ??? SECTION N/A 11/26/2009 delivery only;.. ??? SECTION N/A 12/30/2012 delivery only;.. ??? SECTION N/A 06/20/2014 delivery only;.. ??? SECTION N/A 04/23/2016 section ??? SECTION ??? CHOLECYSTECTOMY ??? LAPAROSCOPIC CHOLECYSTECTOMY N/A 01/08/2015 Laparoscopic cholecystectomy ??? MASS EXCISION 04/2020 abdominal wall endometriosis removal; pathology positive for endometriosis ??? SALPINGECTOMY during last ??? TONSILLECTOMY N/A 2015 Tonsillectomy ??? TONSILLECTOMY VITAL SIGNS Temp Readings from Last 1 Encounters: 05/22/19 36.4 ??C (Temporal) BP Readings from Last 2 Encounters: 02/25/21 108/70 02/17/21 124/70 Pulse Readings from Last 2 Encounters: 02/17/21 96 06/18/20 80 CONSENT: Discussed risks and benefits of procedure. Risks include infection, bleeding risk, damage to adjacent organs, vessels or nerves as well as risk of exposure to COVID-19 within the facility and risks with anesthesia. Benefits include curative procedure to ablate the tumor. All questions pertaining to the procedure and these risks were answered and the patient agreed to proceed. Written informed consent to procedure and blood product administration need to be obtained. ASSESSMENT / PLAN #1 Left lower quadrant abdominal wall endometriosis prior to ablation - Mass appears amenable to ablation. Discussed risks and benefits of procedure. Patient is agreeableto procedure, but will need consent signed prior to procedure. - Discussed anticipated post-procedure course with puncture site care including keeping bandage clean and dry for 24 hours, then okay to shower. Keep from avoiding submerging in nicholas, bath or hot tub for 1 week and limit lifting to <10 lbs for one week. - Discussed recommendation for f/u in 3 months with referring provider for imaging post procedure. - Patient is not on anticoagulation, NABILA/ARB's or DMII medications. Discussed that Aspirin should beavoided for the week prior to the procedure. - Will need COVID testing prior - Will need BRITTANY clearance and updated lab testing #2 Disposition - Patient scheduled for ablation procedure 06/[address] Andrade; planning for post-procedural steroid taper for pain and inflammation management. - Anticipate same-day procedure, although discussed the possibility of having to stay overnight in the hospital. Patient is from out of town, and we discussed that it is recommended that the patient stay at local lodging with career and transition teacher present the evening post procedure. For any questions or concerns regarding this patient please page the [facility] nurse pager at [phone] Wednesday through Wednesday 7 a.m. to 5 p.m. or contact the note author. We spent over half of a total 30 minutes with the patient in counseling and discussion and/or coordination of care as described above. documented in this encounter Plan of Treatment Not on filedocumented as of this encounter Visit Diagnoses Diagnosis Endometriosis In Cutaneous Scar Pain Left Lower Quadrant documented in this encounter Additional Health Concerns Assessment Noted Time PHQ-9 Depression Total Score: 1 11/16/2012 11:45 AM CS T documented as of this encounter
--- OUTSIDE RECORDS SUMMARY | 2022-07-09 20:39 | XMS_ITS | Encounter Summary ---
:1990 Author Organization [facility] Address [facility] [place] [address] Care Team Providers Name Role Phone Unavailable Primary Care Provider Unavailable Reason for Visit Reason Comments Ultrasound hx of c/s x4, hx FGR Encounter Details Date Type Department Care Team Description 07/12/2018 PRE VISIT [facility] Maria Elena Rivera Ultraso und (hx of c/s Maternal Medicine RN x4, hx FGR) [address] [place] [address] Social History Tobacco Use Types [...]
--- OUTSIDE RECORDS SUMMARY | 2022-07-09 20:39 | XMS_ITS | Encounter Summary ---
:1990 Author Organization [facility] Address [facility] [place] [address] Care Team Providers Name Role Phone Lidya Hanson Primary Care Provider Unavailable Travis Ibrahimjose FUENTESW Unavailable Reason for Referral - Closed Specialty Diagnoses / Procedures Referred By Contact Refer red To Contact Diagnoses related condition, antepartum Lidya Hanson [address] [place] [address] Referral ID Status Reason Start Date Expiration Date Visits Requ ested Visits Authorized [id number] Closed 07/11/2018 07/11/2019 1 1 Encounter Details Date Type Department Care Team Description 07/11/2018 Orders Only [facility] Valentin, related Maternal Lidya Meier condition, antepartum Medicine Center [address] (Primary Dx) [place], [place] [address] [facility] [phone] [address] [place] [address] Social History Tobacco Use Types [...] Type Priority Associated Diagnoses Order S chedule [facility] Referral Routine related Order ed: 07/11/2018 REFERRAL- condition, antepartum documented as of this encounter Visit Diagnoses Diagnosis related condition, antepartum - Primary documented in this encounter Care Teams Blocker And Sewer Relationship Specialty Start Date End Date Lidya Hanson PCP - General drilling plant operator 07/13/18 Tate Ibrahim LSW Lead Manager Of Construction Primary Care - CC 01/09/19 05/15/19 documented as of this encounter
--- OUTSIDE RECORDS SUMMARY | 2022-07-09 20:39 | XMS_ITS | Encounter Summary ---
:1990 Author Organization [facility] Address [address] [place] [id number] Care Team Providers Name Role Phone Unavailable Primary Care Provider Unavailable Reason for Visit Auth/Cert Specialty Diagnoses / Procedures Referred By Contact Refer red To Contact Diagnoses Lesion Soft Tissue Procedures CT SOFT TISSUE ABLATION OP Referral ID Status Reason Start Date Expiration Date Visits Requ ested Visits Authorized [id number] 1 1 Encounter Details Date Type Department Care Team Description 06/19/2021 Anesthesia Event Department of Radiology, Lucy Isbell APRN, FISHER SEAL, DNAP [address] [place] [address] [phone] [facility] in Altagracia Mcgee M.D. [address] [place] [phone] [place], [place] [address] [place], [place] [id number] Anesthesia Record Procedure Summary Procedure Name Responsible Anesthesia Start Anesthesia Stop Time Anesthesiologist Time CT SOFT TISSUE Lucy Long APRN, 06/19/21 1049 1413 ABLATION FISHER SEAL, DNAP Events Date Time Event Comment 06/19/2021 1049 An Start Machine/Equipmen t Checked Infection Precautions Foll owed Procedure/Site Verified NPO Sta tus Verified Supine Standard ASA Mon itors Applied 1103 An Induction 1103 An Intubation 1135 Turnover to Proceduralist 1147 Proc Start 1150 Anesthesia Time Out 1256 Quick Note Proceduralist in jecting 0.025% 6ml bupivacaine 1305 Quick Note Gas off 1322 Proc Fin 1340 Turnover to ANE Staff 1353 Airway Removal Criteria Met 1354 Extubation/Airway Removed 1357 an stop data 1413 An End I completed my h andoff to the receiving staff during [facility] we 1. Identified the patient 2. Ident ified the responsible provider 3. Revi ewed the pertinent medical history 4. Discussed the surgical course 5. Review ed intra-op anesthesia management and i ssues during anesthesia 6. Set expectati ons for post-procedure period 7. Allowe d opportunity for questions and ac knowledgement of understanding. Name Total fentanyl injection 50 mcg/mL 100 mcg lidocaine 2% (mg) injection 100 mg propofol 10 mg/mL 300 mg propofol 10 mg/mL infusion 738.09 mg vecuronium 10 mg injection 14 mg phenylephrine 100 mcg/mL injection 300 mcg ePHEDrine PF 5 mg/mL syringe injection 20 mg ondansetron 4 mg/2 mL injection 4 mg sugammadex 100 mg/mL injection 300 mg glycopyrrolate 0.2 mg/mL injection 0.1 mg dexmedeTOMIDine 4 mcg/mL in NaCl 0.9% 100 mL infusion (PRECEDEX) 169.95 mcg ketamine 10 mg/mL injection 20 mg HYDROmorphone PF 2 mg/mL injection 1 mg ceFAZolin 2 g Lactated Ringers Free Drip 1,000 mL lactated ringers free drip 600 mL Agents No agents on file. Blood No blood administrations on file. Lines, Drains, and Airways Type Details Placement Removal Puncture Abdomen; Lower; Abdominal 06/19/21 1208 by Wall Ablation Peripheral IV Placement Date: 06/19/21; 06/19/21 0959 by 06/19 1600 by Placement Time: 958; Larry Jo Sarah M, R.N. Catheter Size: 20 G; Orientation: Left; Location: Antecubital; Site Prep: Chlorhexidine (Preferred); Technique: (vcb); Inserted by: tony; Insertion Attempts: 1; Removal Date: 06/19/21; Removal Time: 1600; Removal Reason: Patient discharged ETT Placement Date: 06/19/21; 06/19/21 1103 by Pendl , 06/19/21 1357 by Placement Time: 1103 Tate Garner APRN, RUSSELL, Adelina man, Narjis A, (created via procedure MNA RICHIE, SOCORRO A, DNAP documentation); Mask Ventilation: Easy mask; Type: Standard ETT; Single Lumen Tube Size: 7 mm; Cuffed: Yes; Location: Oral; Grade View: Grade 1; Insertion Attempts: 1; Placement Verification: Bilateral breath sounds, Positive ETCO2, Symmetrical chest wall movement; Removal Date: 06/19/21; Removal Time: 1357 Peripheral IV Placement Date: 06/19/21; 06/19/21 1113 by Pendl , 06/19/21 1600 by Placement Time: 1113; Tate Garner APRN, RUSSELL, Naomi castro, Yakelin Garner, R.N. Catheter Size: 18 G; MNA Orientation: Right; Location: Hand; Removal Date: 06/19/21; Removal Time: 1600; Removal Reason: Patient discharged documented in this encounter Social History Tobacco [...] do you attend christianity or Never 2020 orthodoxy services? Do you belong to any clubs [...] place to sleep or slept in a skilled nursing (including now)? Sex Assigned at Date Recorded Female 04/12/2018 10:21 PM CDT documented as of this encounter OR Notes Anesthesia Postprocedure Evaluation - Lucy Long, RICHIE, FISHER SEAL, DNAP - 06/19/2021 3:38 PM CDT Patient: Barbra Medina Procedure Summary Date: 06/19/21 Room / Location: Department of Radiology in [place], [place] Anesthesia Start: 1049 Anesthesia Stop: 1413 Procedure: CT SOFT TISSUE ABLATION Diagnosis: Lesion Soft Tissue Lesion Soft Tissue (Left abdominal wall, endometriosis) Scheduled Providers: Matthew Andrade M.D. Responsible Provider: Tate Almanza APRN, CRNA, MNA Anesthesia Type: general ASA Status: 3 Anesthesia Type: general Last vitals Vitals Value Taken Time BP 108/74 06/19/21 1445 Temp 36.8 ??C 06/19/21 1413 Pulse 81 06/19/21 1451 Resp 20 06/19/21 1451 SpO2 93 % 06/19/21 1451 Vitals shown include unvalidated device data. Please reference Vitals flowsheet for most recent vital signs. Anesthesia Post Evaluation Patient Disposition: dismissal Cardiovascular status: hemodynamics (HR & BP) acceptable Respiratory status: patent airway with spontaneous effort Temperature: normothermic Oxygen requirements: room air Level of consciousness: awake Pain score: pain adequately controlled and/or at baseline Post Op nausea/vomiting: none Hydration status: euvolemic Anesthesia Procedure Notes - Tate Almanza APRN, CRNA, MNA - 06/19/2021 11:44 AM CDTAssociated Order(s): Airway Airway Date/Time: 06/19/2021 11:03 AM Performed by: Tate Almanza APRN, CRNA, MNA Authorized by: Tate Almanza APRN, CRNA, MNA Care team members present 1. Tate Almanza APRN, CRNA, MNA 3. Altagracia Mcgee M.D. Patient location during procedure: OR / Procedure Area PROCEDURE DETAILS: Mask difficulty assessment: easy mask Final airway type: video laryngoscope Laryngeal Manipulation: no Final best view of glottic structures - Cormack/Lehane Score: grade 1 ETT location: oral VL device: glide scope Adult tube size: 7 Adult ETT distance at teeth/gum: 19 Oral tube type: standard ETT Cuffed: yes Number of attempt to successful placement: 1 Airway confirmation: bilateral breath sounds, positive ETCO2 and bilateral chest rise Other previous techniques attempted: none PRE PROCEDURE DETAILS: Pre evaluation for airway management: procedure Urgency: elective Preop assessment of probable difficulty: questionable / suspicious difficult airway Preoxygenation: bag valve mask SEDATION / ANESTHESIA Anesthesia method: none POST PROCEDURE DETAILS: Procedure outcome: successful Airway event: no complications ATTESTATION STATEMENT Anesthesia Preprocedure Evaluation - Altagarcia Mcgee M.D. - 06/19/2021 10:04 AM CDT Preprocedure Anesthesia & H&P Assessment Procedure Summary Date/Time: 06/19/21 1030 Scheduled providers: Matthew Andrade M.D. Procedure: CT SOFT TISSUE ABLATION Diagnosis: Lesion Soft Tissue [M79.89] Lesion Soft Tissue [M79.89] Indications: Left abdominal wall, endometriosis Location: Department of Radiology in [place], [place] Pertinent components of the patient's history including current problem list, medical history, surgical history, family history, social history, medications and allergies were reviewed. Present illnessand pre-op diagnosis were confirmed. The planned surgery / procedure was verified with the patient /legal guardian. The patient's general health condition remains unchanged RELEVANT COMORBID CONDITIONS MSK/RHEUM (+) Female Pelvic Peritoneal Adhesions Postinfective Other (+) Body Mass Index 45.0 To 49.9 Adult (HCC) (+) Endometriosis (+) Morbid Severe Obesity Due To Excess Calories (HCC) OBJECTIVE PHYSICAL EXAMINATION Airway (HEENT) Mallampati: I TM Distance: >3 FB Neck ROM: Full Mouth Opening: >3 cm Upper Lip Bite Test Class: III Cardiovascular Rhythm: Regular Functional Capacity: >4 METS Pulmonary Pulmonary Assessment: Non labored General / Constitutional Constitutional Assessment: Obese General State of Health:: healthy appearing Neurological Normal Dental Normal ASSESSMENT / PLAN ANESTHESIA PLAN ASA: 3 Anesthesia Plan: general PLAN: .GETA Access: 2 PIV Monitors: standard ASA Airway: 7.0 ETT Induction: fent/prop/yoan Maintenance: prop gtt, precedex Analgesia: tylenol, fentanyl PONV prophylaxis: zofran, dexamethasone Disposition: PACU post op, outpatient Patient seen and allergies reviewed, anesthesia plan and risks discussed directly with patient /legal guardian or through an fell cutter. Risks/Benefits/Alternatives of Blood transfusion discussed with patient / legal guardian, including an opportunity to ask questions and/or decline some or all transfusion therapies. The patient / legalguardian consented to the use of all blood products, as deemed medically necessary Approval to Proceed: approved for anesthesia documented in this encounter Miscellaneous Notes Addendum Note - Lucy Long APRN, CRNA, DNAP - 07/25/2021 3:19 PM CDT Addendum created 07/25/21 1519 by Lucy Long APRN, CRNA, DNAP Clinical Note Signed documented in this encounter Plan of Treatment Not on filedocumented as of this encounter Procedures Procedure Name Priority Date/Time Associated Comments Diagnosis LDA ANE ENDOTRACHEAL Routine 06/19/2021 11:03 Res ults for this AIRWAY AM CDT procedure are i n the results section. documented in this encounter Results LDA ANE ENDOTRACHEAL AIRWAY (06/19/2021 11:03 AM CDT) Narrative Tate Almanza APRN, CRNA, MNA - 06/19 11:03 AM CDT Tate Almanza APRN, CRNA, MNA ? 06/19/2021 11:45 AM Airway Date/Time: 06/19/2021 11:03 AM Performed by: Tate Almanza APRN, CRN A, MNA Authorized by: Tate lAmanza APRN, CR NA, MNA Care team members present 1. Tate Almanza APRN, CRNA, MNA 3. Altagracia Mcgee M.D. Patient location during procedure: OR / Procedure Area PROCEDURE DETAILS: Mask difficulty assessment: easy mask Final airway type: video laryngoscope Laryngeal Manipulation: no ?? Final best view of glottic structures - Cormack/Lehane Score: grade 1 ETT location: oral VL device: glide scope Adult tube size: 7 Adult ETT distance at teeth/gum: 19 Oral tube type: standard ETT Cuffed: yes Number of attempt to successful placemen t: 1 Airway confirmation: bilateral breath so unds, positive ETCO2 and bilateral chest rise Other previous techniques attempted: non e PRE PROCEDURE DETAILS: Pre evaluation for airway management: pr ocedure Urgency: elective Preop assessment of probable difficulty: questionable / suspicious difficult airway Preoxygenation: bag valve mask SEDATION / ANESTHESIA Anesthesia method: none POST PROCEDURE DETAILS: ? Procedure outcome: successful ?? Airway event: no complications ATTESTATION STATEMENT Tate Almanza RECEIVING BARN CUSTODIAN, FISHER SEAL, MNA ANESTHESIA ORDERABLES documented in this encounter Visit Diagnoses Not on filedocumented in this encounter Administered Medications Inactive Administered Medications - up to 3 most recent administrations Medication Order MAR Action Action Date Dose Rate Site ceFAZolin injection (ANCEF) Given 06/19/2021 11:45 AM CDT 2 g intravenous, As needed, Starting on Ene 06/19/21 at 1145, Anesthesia Intra-op dexmedeTOMIDine 4 mcg/mL Rate/Dose Change 06/19/2021 12:50 0.5 mcg/ kg/hr 13.75 mL/hr in NaCl 0.9% 100 mL PM CDT infusion (PRECEDEX) 0.1-1.5 mcg/kg/hr ? 110 kg Order-specific weight (2.75-41.25 mL/hr), intravenous, Continuous, Starting on Ene 06/19/21 at 1030, Intra-Op, In OR 400 mcg in 100 mL, Initiate at: Other, Rate: Per Provider, Titrate at: Other, Titrate: Per Provider, Goal: Other, Goal: Per Provider, Restriction Criteria (Pharmacy will review and approve if criteria met): INITIATED and MAINTAINED only in patients in the operating rooms or in the intensive care unit Rate/Dose Change 06/19/2021 11:01 AM CDT 0.7 mcg/kg/hr 19.25 mL/hr New Bag 06/19/2021 10:59 AM CDT 0.7 mcg/kg/hr 19.25 mL/hr ePHEDrine (PF) injection Given 06/19/2021 12:57 PM CDT 5 mg intravenous, As needed, Starting on Ene 06/19/21 at 1158, Anesthesia Intra-op Given 06/19/2021 12:12 PM CDT 5 mg Given 06/19/2021 11:58 AM CDT 10 mg fentaNYL injection (SUBLIMAZE) Given 06/19/2021 10:57 AM CDT 50 mcg intravenous, As needed, Starting on Ene 06/19/21 at 1056, Anesthesia Intra-op Given 06/19/2021 10:56 AM CDT 50 mcg glycopyrrolate injection (ROBINUL) Given 06/19/2021 1:00 PM CDT 0.1 mg intravenous, As needed, Starting on Ene 06/19/21 at 1300, Anesthesia Intra-op HYDROmorphone (PF) injection (DILAUDID) Given 06/19/2021 12:30 PM CDT 0.4 mg intravenous, As needed, Starting on Ene 06/19/21 at 1149, Anesthesia Intra-op Given 06/19/2021 11:49 AM CDT 0.6 mg ketamine injection (KETALAR) Given 06/19/2021 12:14 PM CDT 10 mg intravenous, As needed, Starting on Ene 06/19/21 at 1108, Anesthesia Intra-op Given 06/19/2021 11:08 AM CDT 10 mg lactated ringers New Bag 06/19/2021 11:15 AM CDT intravenous, Continuous Infusion: Per Instructions PRN, Starting on Ene 06/19/21 at 1115, Anesthesia Intra-op lactated ringers New Bag 06/19/2021 1:39 PM CDT intravenous, Continuous Infusion: Per Instructions PRN, Starting on Ene 06/19/21 at 1051, Anesthesia Intra-op New Bag 06/19/2021 10:51 AM CDT lidocaine (PF) (cardiac) injection Given 06/19/2021 10:57 AM CDT 100 mg intravenous, As needed, Starting on Ene 06/19/21 at 1057, Anesthesia Intra-op ondansetron (PF) injection (ZOFRAN) Given 06/19/2021 12:47 PM CDT 4 mg intravenous, As needed, Starting on Ene 06/19/21 at 1247, Anesthesia Intra-op phenylephrine injection Given 06/19/2021 11:43 AM CDT 100 mcg intravenous, As needed, Starting on Ene 06/19/21 at 1117, Anesthesia Intra-op Given 06/19/2021 11:34 AM CDT 100 mcg Given 06/19/2021 11:17 AM CDT 100 mcg propofol 10 mg/mL infusion New Bag 06/19/2021 11:01 50 mcg/kg/min 31.86 mL/hr (DIPRIVAN) AM CDT intravenous, Continuous Infusion: Per Instructions PRN, Starting on Ene 06/19/21 at 1101, Anesthesia Intra-op propofoL injection (DIPRIVAN) Given 06/19/2021 11:07 AM CDT 100 mg intravenous, As needed, Starting on Ene 06/19/21 at 1058, Anesthesia Intra-op Given 06/19/2021 10:58 AM CDT 200 mg sugammadex injection (BRIDION) Given 06/19/2021 1:00 PM CDT 300 mg intravenous, As needed, Starting on Ene 06/19/21 at 1300, Anesthesia Intra-op vecuronium injection (NORCURON) Given 06/19/2021 12:14 PM CDT 2 mg intravenous, As needed, Starting on Ene 06/19/21 at 1058, Anesthesia Intra-op Given 06/19/2021 11:48 AM CDT 2 mg Given 06/19/2021 10:58 AM CDT 10 mg documented in this encounter Additional Health Concerns Assessment Noted Time PHQ-9 Depression Total Score: 1 11/16/2012 11:45 AM CS T documented as of this encounter
--- OUTSIDE RECORDS SUMMARY | 2022-07-09 20:39 | XMS_ITS | Clinical Summary ---
:1990 Author Organization [facility] Address [address] [place] [address] Care Team Providers Name Role Phone Unavailable Primary Care Provider Unavailable Source Comments Patient records contain information from all sites at [facility]. For routine questions regarding patient records, call [phone] during business hours, M-F 8:00 AM - 5:00 PM Central Time. Record requests for emergency care only can be directed to [phone] at any time.[facility] Allergies Active Allergy Reactions Severity Noted Date Comments Cat Dander Hives 04/11/2009 has allergy to cats House Dust Other (see comments) Medium 05/05/2021 Cough, eyes watery and red, throat tickles and runny nose Medications Medication Sig Dispensed Refills Start Date End Date Status ondansetron (ZOFRAN) 4 Take 4 mg by 0 07/21/2018 Active mg tablet mouth daily. albuterol (PROVENTIL Inhale 1-2 puffs 0 09/14/2018 Active HFA,VENTOLIN HFA) 90 as needed. mcg/actuation inhaler cetirizine (ZyrTEC) 10 Take 10 mg by 0 05/24/2019 Active mg tablet mouth as needed. cholestyramine Take 1 packet by 0 04/30/2020 Active (QUESTRAN) 4 gram packet mouth as needed. topiramate (TOPAMAX) 50 Take 50 mg by 0 03/07/2020 Active mg tablet mouth at bedtime. sertraline (ZOLOFT) 100 Take 100 mg by 0 03/07/2020 Active mg tablet mouth at bedtime. venlafaxine (EFFEXOR) 75 Take 75 mg by 0 Active mg tablet mouth at bedtime. amitriptyline (ELAVIL) Take 25 mg by 0 02/03/2021 Active 25 mg tablet mouth at bedtime. metoclopramide (REGLAN) Take 5 mg by 0 07/15/2020 Active 5 mg tablet mouth as needed. traMADoL (ULTRAM) 50 mg Take 50 mg by 0 07/15/2020 Active tablet mouth as needed. ibuprofen (ADVIL,MOTRIN) Take 400 mg by 0 Active 200 mg tablet mouth as needed for pain. Active Problems Patient Care Coordination Note Formatting of this note might be differe nt from the original. OB education completed. LMP:02/23/18 EDC: 12/07/18 FOB involved: Donato Hx prior classical section and prior CS x 4: CS at 36+0 - 37+6 weeks, Level II US with shows anterior placenta, no evidence of accreta, US q 4 weeks to reassess this Desires sterilization: Federal tubal con sent signed 09/23/2018 History of preeclampsia with severe feat ures: Patient was delivered early, at 33 weeks, due to this. Baseline HELLP labs normal, 24 urine protein and urine protein to creatinine ratio to be collected. A spirin 81 mg beginning at 13 weeks. Iván y growth ultrasounds after 20 weeks. Urine dips prior to each visit. History of growth restriction: Mon thly growth ultrasounds after 20 weeks. Depression and anxiety: EPDS 5 on 2017, EPDS 10 05/27/2018, EPDS 13 on 06/21/2018, Zoloft increased to 75 mg daily, EPDS at next visit BMI greater than 40: Anesthesia consult in the 3rd trimester, early GCT normal, repeat at 28 weeks Vitamin D deficiency: S/P ergocalciferol 50,000 IU weekly x 8 weeks, daily vitamin D3 800 IU Seasonal allergies: Zyrtec daily Hypoplastic nasal bone: Maternal serum s creen normal, follow up US normal Cardiac structures not well visualized o n cardiac echo: echocardiogram recommended 24-28 hours post delivery Pain at prior Pfannenstiel incision site : Improved post injection Heartburn: Not well managed with Zantac, prescription for omeprazole sent. Hospital registration completed and sent to [facility] for processing. Problem Noted Date Menorrhagia 02/12/2021 Fever Of Unknown Origin 07/24/2020 Overview: With associated cough, loss of taste and smell, and body aches. COVID test negative x 2. Will order testing for EBV and CBC to further evaluate. Menstrual Irregularity 06/22/2020 Overview: Associated with abnormal hair growth, ac ne, and weight gain. TSH, prolactin, testosterone studies, SHBG, 17-hydroxyprogesterone, and day #21 progesterone level all normal. Fasting insulin not accurate, as she was not fasting when this was col lected. Will also get US between days 5- 10 of cycle to further evaluate. She will call with onset of menses to schedule this. Dysmenorrhea 06/22/2020 Overview: Normal Pelvic US 07/04/2020. Surgical co nsultation ordered and scheduled. Endometriosis 05/27/2020 Overview: Mass within anterior abdominal wall invo lving the fascia excised on 05/15/2020. Surgical consultation ordered and scheduled. Abnormal Ultrasound 07/19/2018 Allergy Seasonal 07/11/2018 Rhinitis Seasonal 07/11/2018 History Of Uterine Scar From Previous Surgery 04/14/20 18 Overview: Previous section x5. Body Mass Index 45.0 To 49.9 Adult 01/12/2017 Overview: Rule activated problem due to BMI 45-49 posted on 01/12 at 08:26 CDT. Stone Urinary Personal History 01/12/2017 Deficiency Vitamin D 06/24/2016 Morbid Severe Obesity Due To Excess Calories 6 Overview: May be contributing to ovulatory dysfunc tion. Other Specified Anxiety Disorders 03/10/2016 Overview: Depression Anxiety Depression Anxiety Formatting of this note might be differe nt from the original. Overview: Depression Anxiety Complication Preg Previous (C) Section Antepa rtum 03/10/2016 Female Pelvic Peritoneal Adhesions Postinfective 07/05 Resolved Problems Problem Noted Date Resolved Date Examination Other Normal Third Trimester 10/07/2018 06/22/2020 Maternal Care For Unspecified Type Scar From Previous 201706/22/2020 Delivery With Personal History Preeclampsia Previous 201706/22/2020 Personal History Intrauterine Growth Restriction High Risk 0 04/14/2018 06/22/2020 Immunizations Name Administration Dates Next Due 4vHPV (discontinued) 11/30/2011, 10/02/2011 DTaP (Infanrix, [employer]edia) 07/04/1996, 04/07/1995, 02/04/1995 , 02/14/1993, 1992, 1992 H1N1 All Forms 08/20/2009 H1N1 Inj 08/20/2009 H1N1 Inj Preservative Free 08/20/2009 HepA Pediatric/Adolescent 08/26/1999, 12/10/1998 HepA, Pediatric Unspecified 08/26/1999, 12/10/1998 HepB Pediatric/Adolescent 01/05/1996, 03/04/1995, 01/29/1995 HepB, Unspecified 01/05/1996, 03/04/1995, 01/29/1995 Hib (PRP-T) (ACTHIB, HIBERIX) 10/17/1993, 02/14/1993, 1992, 1992 Hib, Unspecified 10/17/1993, 02/14/1993, 1992, 1992 IPV 07/04/1996, 04/07/1995, 02/04/1995, 1992, 1992 Influenza (IM) Preservative Free 07/10/2009 Influenza TIV (IM) 08/30/2012, 07/10/2009 Influenza, Injectable, Quadrivalent 07/24/2019, 11/03/2017, 06/23/2016, 06/22/2014 Influenza, Seasonal, Injectable 08/31/2012 Influenza, Unspecified 11/03/2017, 06/23/2016, 08/27/2015, 06/22/2014, 08/31/2012, 07/10/2009 MMR 04/25/2016, 06/21/2014, 06/02/2013, 07/04/1996, 10/17/1993 Td (Adult), adsorbed 05/14/2004 Td, (Adult) Unspecified 05/14/2004 Tdap 09/23/2018, 03/24/2016, 06/22/2014, 06/02/2013, 05/14/2004 influenza vaccine quad 07/23/2020, 07/08/2018, 11/03/2017, (FLUZONE/FLUARIX) (6 months and 06/23/2016, 06/22/2014 older)(PF) Family History Medical History Relation Name Comments Diabetes Maternal Grandfather Hypertension Maternal Grandfather Arthritis Maternal Grandmother Diabetes Mother Shante Ramirez Alzheimer's disease Paternal Grandfather Diabetes Paternal Grandfather Breast cancer Neg Hx Cancer of intestine Neg Hx Endometrial cancer Neg Hx Ovarian cancer Neg Hx Uterine cancer Neg Hx Relation Name Status Comments Maternal Grandfather Maternal Grandmother Mother Shante Ramirez Paternal Grandfather Social History Tobacco Use Types Packs/Day Years [...] or relatives? How often do you attend orthodox or Never 2020 church services? Do you belong to any clubs or No 06/25/2021 organizations such as orthodox groups, unions, fraternal or athletic groups, or [...] minutes do you engage in exercise at is 50 min 06/25/2021 level? Stress Answer [...] place to sleep or slept in a group home (including now)? Education Answer Date Recorded What is the highest level of school you have GED or equivale nt 06/25/2021 completed or the highest degree you have received? Sex Assigned at Date Recorded Female 04/12/2018 10:21 PM CDT Last Filed Vital Signs Vital Sign Reading Time Taken Comments Blood Pressure 124/70 06/19/2021 3:15 PM CDT Pulse 68 06/19/2021 3:15 PM CDT Temperature 36.8 ??C (98.2 ??F) 06/19/2021 2:13 PM CDT Respiratory Rate 14 06/19/2021 3:15 PM CDT Oxygen Saturation 93% 06/19/2021 3:15 PM CDT Inhaled Oxygen Concentration - - Weight 106 kg (234 lb 2.1 oz) 06/19/2021 9:53 AM CDT Height 151 cm (4' 11.45) 02/17/2021 2:19 PM CDT Body Mass Index 46.58 02/17/2021 2:19 PM CDT Plan of Treatment Health Maintenance Due Date Last Done Comments Hepatitis C Screening 1990 COVID-19 Vaccine (3 - 03/19/2021 01/22/2021, 12/25/2020 Booster for Moderna series) Depression Screening 09/27/2021 (Annual PHQ-2) Influenza Vaccine (#1) 2022 07/23/2020, 07/24/2019, 07/24/2019, Additional history exists Cervical Cancer Screening 07/24/2022 07/24/2019 (Performed elsewhere), 01/13/2017, 01/02/2014 DTaP,Tdap,and Td Vaccines 09/23/2028 09/23/2018, 03/24/2016 , (10 - Td or Tdap) 06/22/2014, Additional history exists Hepatitis B Vaccines Completed 01/05/1996, 01/05/1996, 03/04/1995, Additional history exists HIV Screening Completed 04/14/2018, 01/22/2014, 10/26/2012 Pneumococcal vaccine (0-64 Aged Out No lo nger eligible years) based on patient 's age to complete this topic Insurance Payer Benefit Plan Subscriber ID Effective Phone Address Typ e / Group Dates BLUE CROSS BCBS BLUE [id number] 2018-Prese ATTN: Patsy shabazz HMO BLUE SHIELD PLUS HMO nt CONSUMER [facility] [address] [address] [place] [address]
--- OUTSIDE RECORDS SUMMARY | 2022-07-09 20:40 | XMS_ITS | Encounter Summary ---
:1990 Author Organization [facility] Address [address] [place] [address] Care Team Providers Name Role Phone Unavailable Primary Care Provider Unavailable Encounter Details Date Type Department Care Team Description 04/30/2021 Admin Visit Urgent Care in [place], [place] [address] [place] [address] [facility] [phone] Social History Tobacco Use Types Packs/Day Years [...] or relatives? How often do you attend protestant or Never 2020 yazidism services? Do you belong to any clubs or No 06/25/2021 organizations such as protestant groups, unions, fraternal or athletic groups, or [...] Date Last Indicated Resolved Time COVID19 Pending 04/29/2021 04/30/2021 04/30/2021 11:53 PM CDT Assessment Noted Time PHQ-9 Depression Total Score: 1 11/16/2012 11:45 AM CS T documented as of this encounter
--- OUTSIDE RECORDS SUMMARY | 2022-07-09 20:40 | XMS_ITS | Encounter Summary ---
:1990 Author Organization [facility] Address [address] [place] [address] Care Team Providers Name Role Phone Unavailable Primary Care Provider Unavailable Encounter Details Date Type Department Care Team Description 07/04/2020 Hospital Encounter Department of Valentin, Yordyua mu Laboratory Medicine Ramonita Bose Irregularity in [place], [address] [facility] [place] [phone] [phone] Social History Tobacco Use Types Packs/Day Years [...] or relatives? How often do you attend baptist or Never 2020 adventism services? Do you belong to any clubs or No 06/25/2021 organizations such as baptist groups, unions, fraternal or athletic groups, or [...] 2017 HFA,VENTOLIN HFA) 90 needed. mcg/actuation inhaler cetirizine (ZyrTEC) 10 mg Take 10 mg by mouth 0 0 05/24/2019 tablet as needed. cholestyramine (QUESTRAN) Take 1 packet by 0 12/2019 4 gram packet mouth as needed. ondansetron (ZOFRAN) 4 mg Take 4 mg by mouth 0 tablet daily. sertraline (ZOLOFT) 100 mg Take 100 mg by 0 03/07 tablet mouth at bedtime. topiramate (TOPAMAX) 50 mg Take 50 mg by mouth 0 03/07/2020 tablet at bedtime. venlafaxine (EFFEXOR) 75 Take 75 mg by mouth 0 mg tablet at bedtime. aspirin [address] tablet Take by mouth. 0 05/05/2021 ibuprofen (ADVIL,MOTRIN) Take 600 mg by 0 019 05/05/2021 600 mg tablet mouth. sertraline (ZOLOFT) 25 mg Take 1 tablet (25 30 tablet 11 05/05/2021 tablet mg total) by mouth daily. Take with 50 mg tablets for 75 mg daily. sertraline (ZOLOFT) 50 mg Take 1 tablet (50 30 tablet 05/05/2021 tablet mg total) by mouth daily. documented as of this encounter Plan of Treatment Not on filedocumented as of this encounter Procedures Procedure Name Priority Date/Time Associated Diagnosis Comme nts INSULIN, S Routine 07/04/2020 3:46 PM Menstrual Irregularity Results for this CDT procedure are i n the results section. PROGESTERONE, S Routine 07/04/2020 3:46 PM Menstrual Irregular ity Results for this CDT procedure are i n the results section. documented in this encounter Results (ABNORMAL) Insulin (07/04/2020 3:46 PM CDT) P athologist Signature Insulin, S 25.7 (H) 2.6 - 24.9 07/05/2020 SDSC mcIU/mL 9:10 AM CDT Specimen Anatomical Collection Method Collection Time Receive d Time (Source) Location / / Volume Laterality Blood (Blood, 07/04/2020 3:46 PM 07/05/20 8:25 Venous) CDT AM CDT Lidya Hanson M.D. LAB BLOOD ADD-ON Performing Organization Address City/[facility]/ZIP Code Phon e Number [facility] [address] [place], [place] [phone] SU[facility] CENTER [facility] [place] [address] Laboratory Medicine and Pathology [address] [place] Progesterone Level (07/04/2020 3:46 PM CDT) P athologist Signature Progesterone, S 8.4 See Note* 07/05/2020 DTL ng/mL 7:15 AM CDT Comment: Reference intervals are central 90th % o f healthy population. Follicular phase: <=0.89 ng/mL Ovulation: <=12 ng/mL Luteal phase: 1.8-24 ng/ml Post-menopausal: <0.20 ng/mL 1st Trimester: 11-44 ng/mL 2nd Trimester: 25-83 ng/mL 3rd Trimester: 58-214 ng/mL Specimen Anatomical Collection Method Collection Time Receive d Time (Source) Location / / Volume Laterality Blood (Blood, 07/04/2020 3:46 PM 07/05/20 6:43 Venous) CDT AM CDT Lidya Hanson M.D. LAB BLOOD ADD-ON Performing Organization Address City/[facility]/ZIP Code Phon e Number [facility] - [address] [place], [place] [address] [facility] [place] [address] Laboratories-[facility] [address] documented in this encounter Visit Diagnoses Diagnosis Menstrual Irregularity documented in this encounter Additional Health Concerns Assessment Noted Time PHQ-9 Depression Total Score: 1 11/16/2012 11:45 AM CS T documented as of this encounter
--- OUTSIDE RECORDS SUMMARY | 2022-07-09 20:40 | XMS_ITS | Encounter Summary ---
:1990 Author Organization [facility] Address [address] [place] [address] Care Team Providers Name Role Phone Unavailable Primary Care Provider Unavailable Reason for Visit Reason Onset Date Comments Outpatient COVID-19 Testing 07/10/2020 Encounter Details Date Type Department Care Team Description 07/10/2020 External Outreach Department of Jc Snyder Infect ion [facility] Internal Medicine in J, D.O. Respiratory (Primary [place], [place] [address] Dx) [address] [place] [phone] Social History Tobacco Use Types Packs/Day Years [...] or relatives? How often do you attend buddhist or Never 2020 yazidism services? Do you belong to any clubs or No 06/25/2021 organizations such as buddhist groups, unions, fraternal or athletic groups, or [...] documented as of this encounter Progress Notes Annemarie Anderson R.N. - 07/10/2020 8:11 AM CDT Encounter created for the drive-through COVID-19 testing. documented in this encounter Plan of Treatment Not on filedocumented as of this encounter Procedures Procedure Name Priority Date/Time Associated Diagnosis Comme nts SARS CORONAVIRUS-2 Routine 07/10/2020 3:32 PM Infection Upper Results for this RNA, V CDT Respiratory procedure are i n the results section. documented in this encounter Results SARS Coronavirus-2 RNA, V Symptomatic (07/10/2020 3:32 PM CDT) [facility] Method Time Signature SARS-CoV-2 Swab, 07/11/2020 MKTO Specimen Nasopharynx 4:12 AM CDT Source SARS CoV-2 Undetected Undetected 07/11/2020 MKTO RNA, TMA 4:12 AM CDT Comment: SARS-CoV-2 RNA absent. This result does not rule out COVID-19 in the patient, as the sensitivity of the test depends o n the timing of the specimen collection and the quality of the specim en. Result should be correlated with patient's history and clinical presentat ion. ----ADDITIONAL INFORMATION---- This test is performed using the Aptima SARS-CoV-2 assay ([employer] which has received Emergency Use Authori zation (EUA) by the U.S. Food and Drug Administration. Fact sheets for this Emergency Use Autho rization (EUA) assay can be found at the following links: For Healthcare Providers: https://www.fd a.gov/media/241971/download For Patients: https://www.fda.gov/media/ 717132/download Specimen Anatomical Collection Method Collection Time Receive d Time (Source) Location / / Volume Laterality Varies 07/10/2020 3:32 PM 0 7:17 (Nasopharynx) CDT PM CDT Jc J Hellweg D.O. LAB MICROBIOLOGY - GENERAL O RDERABLES Performing Organization Address City/State/ZIP Code Phon e Number [facility]- [facility] [place] [address] [place] [address] System in [place] [address] [place] [address] documented in this encounter Visit Diagnoses Diagnosis Infection Upper Respiratory - Primary documented in this encounter Additional Health Concerns Infection Onset Date Last Indicated Resolved Time COVID19 Pending 07/10/2020 07/10/2020 07/11/2020 4:13 AM CDT Assessment Noted Time PHQ-9 Depression Total Score: 1 11/16/2012 11:45 AM CS T documented as of this encounter
--- OUTSIDE RECORDS SUMMARY | 2022-07-09 20:40 | XMS_ITS | Encounter Summary ---
:1990 Author Organization [facility] Address [address] [place] [address] Care Team Providers Name Role Phone Unavailable Primary Care Provider Unavailable Reason for Visit Reason Comments Pre-Ablation Encounter Details Date Type Department Care Team Description 05/07/2021 Clinical Communication Department of Rakesh Lopez Pre-Ablation Radiology, Silvana Garner R.N.[facility], in [place]N. [place], [place] [address] [place] [address] [address] [place] [phone] Social History Tobacco Use Types Packs/Day Years [...] or relatives? How often do you attend baptism or Never 2020 presybeterian services? Do you belong to any clubs or No 06/25/2021 organizations such as baptism groups, unions, fraternal or athletic groups, or [...] place to sleep or slept in a alf (including now)? Sex Assigned at Date Recorded Female 04/12/2018 10:21 PM CDT documented as of this encounter Miscellaneous Notes Telephone Encounter - Andre Parekh M.D. - 05/07/2021 4:11 PM CDT Case Review by Interventional Oncology for potential ablation: Referring provider: Dr. Barrios Target Location: left abdominal wall Number of lesions: one Updated imaging needed: no Schedule consult: yes Schedule US: no Neuromonitoring: No Primary modality: CT Ureteral stent: no Combined embolization case?: no Approved for ablation: Yes Third case candidate?: no Reviewed by: Andre Parekh M.D. documented in this encounter Plan of Treatment Not on filedocumented as of this encounter Visit Diagnoses Not on filedocumented in this encounter Additional Health Concerns Assessment Noted Time PHQ-9 Depression Total Score: 1 11/16/2012 11:45 AM CS T documented as of this encounter
--- OUTSIDE RECORDS SUMMARY | 2022-07-09 20:40 | XMS_ITS | Encounter Summary ---
:1990 Author Organization [facility] Address [address] [place] [address] Care Team Providers Name Role Phone Unavailable Primary Care Provider Unavailable Reason for Referral Outpatient (Routine) - Closed Specialty Diagnoses / Procedures Referred By Contact Refer red To Contact Obstetrics and Diagnoses Endometriosis Link Ascencio, [facility] Gynecology M.DWander [address] [place] [address] Referral ID Status Reason Start Date Expiration Date Visits Requ ested Visits Authorized [id number] Closed 02/21/2021 02/21/2022 1 1 Encounter Details Date Type Department Care Team Description 02/21/2021 Clinical Communication Department of Link Ascencio, Obstetrics and M.DWander Gynecology in 200 [place], [place] 200 [facility] [address] [place], [place] [phone] (Work) [phone] Social History Tobacco Use Types Packs/Day Years [...] or relatives? How often do you attend pentecostalism or Never 2020 holiness services? Do you belong to any clubs or No 06/25/2021 organizations such as pentecostalism groups, unions, fraMyTrainer or athletic groups, or school groups? How [...] or slept in a intermediate (including now)? Sex Assigned at Date Recorded Female 04/12/2018 10:21 PM CDT documented as of this encounter Miscellaneous Notes Addendum Note - Tomasa Wu R.N. - 02/21/2021 1:47 PM CDT Addended by: TOMASA WU on: 02/21/2021 01:47 PM Modules accepted: Orders Telephone Encounter - Tomasa Wu R.N. - 02/21/2021 1:46 PM CDT Spoke with Arcelia from Gynecology in [place] to make sure the consult is entered appropriately. New order has been entered. Telephone Encounter - Sharon Mcneil - 02/21/2021 12:50 PM CDT Reason for Communication: Patient called. She has been waiting for a call from [place] to set up ahysterectomy since Wednesday. She hadn't gotten a call so she call them. They told her that the order by Dr Ascencio was put in for [facility] - but needs to be entered as [facility]. Current if questions Can Nursing/Provider leave a detailed message?: yes Did the patient refuse triage through Nurse line? (for symptom based concerns): na Action Needed: wants corrected order entered so she can get this scheduled in [place] Name of Medication (if relevant): na documented in this encounter Plan of Treatment Scheduled Referrals Name Type Priority Associated Diagnoses Order S [facility] Obstetrics and Outpatient Referral Routine Endometriosis Expec aureliano: Gynecology - 02/21/2021 Gynecology consult (Approxim ate), (clinic) Expires: 02/22/2024 documented as of this encounter Visit Diagnoses Diagnosis Endometriosis - Primary documented in this encounter Additional Health Concerns Assessment Noted Time PHQ-9 Depression Total Score: 1 11/16/2012 11:45 AM CS T documented as of this encounter
--- OUTSIDE RECORDS SUMMARY | 2022-07-09 20:40 | XMS_ITS | Encounter Summary ---
:1990 Author Organization [facility] Address [address] [place] [address] Care Team Providers Name Role Phone Unavailable Primary Care Provider Unavailable Encounter Details Date Type Department Care Team Description 06/22/2020 Clinical Communication Department of Valentin Obstetrics and [place] Gynecology in [address] [place], [place] 200 [facility] [place] [address] [place], [place] [phone] [phone] (Work) [phone] Social History Tobacco Use Types Packs/Day Years [...] or relatives? How often do you attend judaism or Never 2020 yazdanism services? Do you belong to any clubs or No 06/25/2021 organizations such as judaism groups, unions, fraternal or athletic groups, or [...] place to sleep or slept in a usp (including now)? Sex Assigned at Date Recorded Female 04/12/2018 10:21 PM CDT documented as of this encounter Miscellaneous Notes Addendum Note - Rauenhorst, Cooper, M.D. - 06/24/2020 4:35 PM CDT Addended by: COOPER BELTRAN on: 06/24/2020 04:35 PM Modules accepted: Orders Telephone Encounter - Aysha Mckay - 06/24/2020 4:01 PM CDT Patient notified of the process needed for prior authorization. Telephone Encounter - Cooper Beltran M.D. - 06/24/2020 3:22 PM CDT I will sign this. Please let her know that we need to do this prior to starting the prior authorization process. It doesn't mean that she has to go ahead with this. Addendum Note - Aysha Mckay - 06/24/2020 8:08 AM CDT Addended by: AYSHA MCKAY on: 06/24/2020 08:08 AM Modules accepted: Orders Telephone Encounter - Cooper Beltran M.D. - 06/22/2020 10:27 AM CDT I would like to start her on a 6 month course of depot lupron for ovarian supression due to history of endometriosis. Please find out if we need prior authorization or if this will be feasible for her from a cost perspective. documented in this encounter Plan of Treatment Not on filedocumented as of this encounter Visit Diagnoses Diagnosis Endometriosis - Primary documented in this encounter Additional Health Concerns Assessment Noted Time PHQ-9 Depression Total Score: 1 11/16/2012 11:45 AM CS T documented as of this encounter
--- OUTSIDE RECORDS SUMMARY | 2022-07-09 20:40 | XMS_ITS | Encounter Summary ---
:1990 Author Organization [facility] Address [address] [place] [address] Care Team Providers Name Role Phone Unavailable Primary Care Provider Unavailable Reason for Referral Outpatient (Routine) - Closed Specialty Diagnoses / Procedures Referred By Contact Refer red To Contact Radiology Diagnoses Endometriosis In Cutaneous Scar Pain Left Lower Quadrant Nate Barrios M.D. [facility] [address] [place] [phone] Referral ID Status Reason Start Date Expiration Date Visits Requ ested Visits Authorized [id number] Closed 05/07/2021 05/07/2022 1 1 Reason for Visit Outpatient (Routine) - Closed Specialty Diagnoses / Procedures Referred By Contact Refer red To Contact Obstetrics and Diagnoses Endometriosis Link Ascencio, [facility] Gynecology [place] [address] [place] [phone] Referral ID Status Reason Start Date Expiration Date Visits Requ ested Visits Authorized [id number] Closed 02/21/2021 02/21/2022 1 1 Encounter Details Date Type Department Care Team Description 05/07/2021 Comprehensive Visit Department of Mike Barrios riocolt In Cutaneous Scar (Primary Dx); Obstetrics and Nate Blue M.D. Pain Left Lower Quadrant Gynecology in [address] [place] [phone] [place] [address] [place], [place] (Work) [address] [phone] Social History Tobacco Use Types Packs/Day Years [...] or relatives? How often do you attend mormon or Never 2020 congregation services? Do you belong to any clubs or No 06/25/2021 organizations such as mormon groups, unions, fraternal or athletic groups, or [...] documented as of this encounter Consult Notes Nate Barrios M.D. - 05/07/2021 2:00 PM CDT SUBJECTIVE Referring provider: Link Ascencio M.D. REASON FOR VISIT Left lower quadrant pain, abdominal wall endometriosis HISTORY OF PRESENT ILLNESS I had the pleasure of seeing Ms. Barbra Medina in the Complex Endometriosis [facility] at [facility] on 05/07/2021. Patient is unaccompanied.She is a 30 y.o. who presents with the above stated complaint. Please see the history as documented in the 1st part of her endometriosis clinic visit by nurse practitioner Shefali Hernandez on May 06, 2021. In short, the she has had pain to some degree during and in between her 5 sections. She has had more and more left lower quadrant pain that seems to cycle with her menses. In 2019 she was noted to have a subcutaneous mass, in April of that year it was excised and found to be positive for endometriosis on pathology. She reports that this was not done by an manager wellness. She continued to have pain. Repeat imaging demonstrated persistence of the mass. Again, see the consult from May 06, 2021 for the complete history. Menstrual History: No LMP recorded. Past Medical History: Diagnosis Date ??? Abnormal Pap Smear Cervix x1, No cervical procedures, repeat normal ??? Adhesion Pelvic Female 07/05/2014 ??? Allergy Initial ??? Body Mass Index 45.0 To 49.9 Adult ([facility]) 01/12/2017 Rule activated problem due to BMI [...] ??? TONSILLECTOMY N/A 2015 Tonsillectomy ??? TONSILLECTOMY Family History Problem Relation Age of Onset ??? Diabetes Mother ??? Arthritis Maternal Grandmother ??? Hypertension Maternal Grandfather ??? Diabetes Maternal Grandfather ??? Diabetes Paternal Grandfather ??? Alzheimer's disease Paternal Grandfather ??? Breast cancer Neg Hx ??? Ovarian cancer Neg Hx ??? Uterine cancer Neg Hx ??? Endometrial cancer Neg Hx ??? Cancer of intestine Neg Hx Social History Socioeconomic History ??? Marital status: Spouse name: Brian ??? Number of children: None ??? Years of education: None ??? Highest education level: None Occupational History ??? None Tobacco Use ??? Smoking status: Never Smoker ??? Smokeless tobacco: Never Used Vaping Use ??? Vaping Use: never used Substance and Sexual Activity ??? Alcohol use: No ??? Drug use: No ??? Sexual activity: Yes Partners: Male control/protection: Tubal ligation (tubes tied) Comment: No history of STDs. + recent pap smear. Other Topics Concern ??? None Social History Narrative ??? None Social Determinants of Health Financial Resource Strain: ??? Difficulty of Paying Living Expenses: Food Insecurity: ??? Worried About Running Out of Food in the Last Year: ??? Ran Out of Food in the Last Year: Transportation Needs: ??? Lack of Transportation (Medical): ??? Lack of Transportation (Non-Medical): Physical Activity: ??? Days of Exercise per Week: ??? Minutes of Exercise per Session: Stress: ??? Feeling of Stress : Social Connections: ??? Frequency of Communication with Friends and Family: ??? Frequency of Social Gatherings with Friends and Family: ??? Attends Judaism Services: ??? Active Member of Clubs or Organizations: ??? Attends Club or Organization Meetings: ??? Marital Status: Intimate Partner Violence: ??? Fear of Current or Ex-Partner: ??? Emotionally Abused: ??? Physically Abused: ??? Sexually Abused: Allergies Allergen Reactions ??? House Dust Other (see comments) Cough, eyes watery and red, throat tickles and runny nose ??? 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 MRI of the pelvis is reviewed both images and report. ASSESSMENT / PLAN #1 Endometriosis In Cutaneous Scar #2 Pain Left Lower Quadrant Imaging demonstrates a 1.7 cm mass consistent with likely abdominal wall endometriosis given her section history and prior excision demonstrating endometriosis on pathology. This was likely incompletely excised. The location of the mass corresponds with the left lower quadrant location of thepatient's symptoms. In regards to endometriosis of the abdominal wall or section scar, we reviewed this etiology. We discussed that this appears to be a separate etiology from pelvic endometriosis. We discussed treatment options including hormonal suppression, surgical excision, and Interventional Radiology ablation. She has failed to respond to hormonal suppression in the form of Depo Lupron. Given lower complication rates and equivalent treatment success seen in limited case series, interventional radiology ablation is preferred over surgical excision. Her lesion appears amenable to our ablation technique. She is referred for an ablation consult and procedure. I do not believe biopsy is necessary given that this was previously sampled. We discussed remains possible she might have symptoms from uterine or other causes of discomfort. However, I do believe starting with ablation of this obvious left lower quadrant mass is the recommended 1st step. We will re- evaluate 3 months after the ablation to determine if there are any residual cau ses of discomfort in need of addressing. All questions and concerns were addressed to the best of my ability. Nate Barrios M.D. Total time 40 min, at least 50% of which was spent counseling. Orders Placed This Encounter Procedures ??? Radiology - Ablation Consult (Clinic) Has biopsy proven endometriosis of this site Standing Status: Future Standing Expiration Date: 05/07/2024 Referral Priority: Routine Referral Type: Outpatient Referral Location: [facility] Requested Specialty: Radiology Number of Visits Requested: 1 documented in this encounter Plan of Treatment Scheduled Referrals Name Type Priority Associated Diagnoses Order S chedule Radiology - Outpatient RAD - Routine Endometriosis In Expected: Ablation Consult Referral (most inpatients Cutaneous Scar 05/07/2021 (Clinic) and all Pain Left Lower (Approximate ), outpatients) Quadrant Expires: 05/07/2024 documented as of this encounter Visit Diagnoses Diagnosis Endometriosis In Cutaneous Scar - Primar y Pain Left Lower Quadrant documented in this encounter Additional Health Concerns Assessment Noted Time PHQ-9 Depression Total Score: 1 11/16/2012 11:45 AM CS T documented as of this encounter
--- OUTSIDE RECORDS SUMMARY | 2022-07-09 20:40 | XMS_ITS | Encounter Summary ---
:1990 Author Organization [facility] Address [address] [place] [address] Care Team Providers Name Role Phone Unavailable Primary Care Provider Unavailable Encounter Details Date Type Department Care Team Description 08/08/2020 Clinical Communication Department of [place], Obstetrics and [place] [facility]ne[facility] in [address] [address] [place] [address] [facility] [phone] Social History Tobacco Use Types Packs/Day Years [...] do you attend samaritan or Never 2020 bahai services? Do you belong to any clubs [...] place to sleep or slept in a [place] [facility] facility (including now)? Sex Assigned at Date Recorded Female 04/12/2018 10:21 PM CDT documented as of this encounter Miscellaneous Notes Telephone Encounter - Horejsi, Vivien L, R.N. - 08/13/2020 10:57 AM CST Left message for patient to return our call. Advised that US would have to be done by 08/16 with this cycle. CRAB SHEDDER Telephone Encounter - Vivien Burns R.N. - 08/09/2020 8:36 AM CST Left message for patient to return our call. CRAB SHEDDER Telephone Encounter - Vivien Burns R.N. - 08/08/2020 1:24 PM CST Left message for patient to return our call. Pelvic US ordered to be done on days 5-10. CRAB SHEDDER Telephone Encounter - Raquel Biswas - 08/08/2020 12:33 PM CST Reason for Communication: pt called and was told to call in when she started her period to set up anUS. Please order. Current Can Nursing/Provider leave a detailed message?: yes Did the patient refuse triage through Nurse line? (for symptom based concerns): na Action Needed: Please call back Name of Medication (if relevant): CRAB SHEDDER documented in this encounter Plan of Treatment Not on filedocumented as of this encounter Visit Diagnoses Diagnosis Menstrual Irregularity - Primary documented in this encounter Additional Health Concerns Assessment Noted Time PHQ-9 Depression Total Score: 1 11/16/2012 11:45 AM CS T documented as of this encounter
--- OUTSIDE RECORDS SUMMARY | 2022-07-09 20:40 | XMS_ITS | Encounter Summary ---
:1990 Author Organization [facility] Address [address] [place] [address] Care Team Providers Name Role Phone Unavailable Primary Care Provider Unavailable Reason for Referral Physical Therapy (Routine) - Closed Specialty Diagnoses / Procedures Referred By Contact Refer red To Contact Diagnoses Endometriosis Pelvic Floor Tension Myalgia Shefali Hernandez APRN, C.N.P., M.S.N. [address] [place] [phone] Referral ID Status Reason Start Date Expiration Date Visits V isits Requested Authorized [id number] Closed Service not 05/06/2021 05/06/2022 1 1 available in [facility] Reason for Visit Outpatient (Routine) - Closed Specialty Diagnoses / Procedures Referred By Contact Refer red To Contact Obstetrics and Diagnoses Endometriosis Link Ascencio, [facility] M.DWander [address] [place] [address] Referral ID Status Reason Start Date Expiration Date Visits Requ ested Visits Authorized [id number] Closed 02/21/2021 02/21/2022 1 1 Encounter Details Date Type Department Care Team Description 05/06/2021 Comprehensive Visit Department of Shefali Hernandez (Primary Dx); Obstetrics and R, RICHIE, C.N.P., Pain Pelv ic Female Chronic; Gynecology in M.S.N. Pelvic Floor Tension Myalgia [place], 200 [place], [place] 200 [facility] [address] [place], [place] [phone] (Work) [phone] Social History Tobacco Use Types Packs/Day Years [...] do you attend religious or Never 2020 alevism services? Do you belong to any clubs [...] documented as of this encounter Consult Notes Shefali Hernandez, RICHIE, C.N.P., M.S.N. - 05/06/2021 11:00 AM CDT SUBJECTIVE CHIEF COMPLAINT/REASON FOR VISIT endometriosis Chronic pelvic pain REFERRING PROVIDER: Link Ascencio M.D. HISTORY OF PRESENT ILLNESS Barbra Medina is a pleasant 30 y.o. , deliveries x 5, who presents today into the Endometriosis Clinic for evaluation of a left lower quadrant abdominal wall nodule and pelvic pain.The patient's past gynecologic history is significant for pathology proven endometriosis in April 2020. Barbra reported irregular menstrual periods in 2019. Menses occurred every 21 days and lasted 2-3 days in duration. Vaginal bleeding was heavy in flow, changing a pad every 2-3 hours. No intermenstrualbleeding. The vaginal bleeding was accompanied by left lower quadrant pain and a palpable mass. She s ubsequently underwent excision of the mass within the left lower abdominal wall. Per operative report The mass was dissected from surrounding tissues using a combination of blunt dissection and electrocautery, and was then sent to pathology for further evaluation. The mass was noted to involve the deep fascia. Pathology was positive for endometriosis. Barbra's pelvic pain progressively worsened following the excisional procedure. She describes the pain as a constant sharp/stabing sensation in the LLQ radiating to the low back. At baseline pain is rated a 10/10. The pelvic pain is aggravated with walking, activity, and lying down. She denies alleviating factors. Tylenol, ibuprofen, heat, and ice have not been effective in managing her discomfort. Barbra has been evaluated on several different occasions for the pelvic pain. She was given Depo Lupron on 02/17/21 for management of pain. The pelvic pain has not responded to the Depo Lupron. She reports feeling cold, hirsutism, and hair loss following the Depo Lupron injection. She has been amenorrheic since January 2021. Barbra reports occasional pain with defecation, primarily with constipation. This is unrelated to menstrual periods. Stool softeners were utilized during menses. Barbra denies pain with urination. She does suffer from urinary frequency. Prior to Depo Lupron, Barbra had menstrual periods every 21 days lasting 3-5 days in duration. Vaginal bleeding was moderate in flow. Pelvic pain did not change with menstruation. Barbra did have onset of menarche at age 6/7. Menses were regular, occurring monthly, lasting 2-3 days in duration. Vaginal bleeding was light in flow. She denies dysmenorrhea. Pain Description: Onset: 2020 Location: LLQ, low back Ratin/10 Aggravating factors: Walking, activity, lying Alleviating factors: None Pain rating: Pain with ovulation: 10 Pain just before period: 10 Pain with period: 10 Pain after period: 10 Pain with intercourse: 5 Pain hours or days after intercourse: 4 Prior surgeries: Past Surgical History: Procedure Laterality Date ??? SECTION N/A 11/26/2009 delivery only;.. ??? SECTION N/A 12/30/2012 delivery only;.. ??? SECTION N/A 06/20/2014 delivery only;.. ??? SECTION N/A 04/23/2016 section ??? SECTION ??? LAPAROSCOPIC CHOLECYSTECTOMY N/A 01/08/2015 Laparoscopic cholecystectomy ??? TONSILLECTOMY N/A 2015 Tonsillectomy Recent Imaging: Pelvic MRI 05/05/2021 IMPRESSION: 1. T1 bright foci with some T2 dark thickening and heterogeneous enhancement along the scar, likely related to endometriosis implants. 2. Discrete enhancing tissue in the subcutaneous fat of the left lower abdominal wall with imaging characteristics consistent with an area of abdominal wall endometriosis. 3. Follicles in normal-sized ovaries bilaterally without evidence of an endometrioma in either side. 4. No imaging evidence of deep infiltrating endometriosis or bowel invasive Disease. CT abdomen Pelvis 02/06/2021: IMPRESSION: 1. Increased size a left lower quadrant abdominal wall nodule which is superior to the level of the previously excised area of endometriosis and could represent an additional focus of abdominal wall endometriosis. Axial image 121. 2. Incidental follicular cyst in the left ovary. 3. No additional pelvic abnormality. 4. Fatty infiltration of the liver. Status post gallbladder surgery. Pelvic ultrasound 07/04/2020: Uterus: 4.6 x 5.2 x 8.8 cm. Anteverted Myometrium: Presumed scar. Endometrium: Normal. Thickness: 10 mm ?? Right ovary: Only seen transabdominally. Ovarian volume: Visually normal. Left ovary: Normal. Ovarian volume: 19 ml. Normal Doppler characteristics of the ovary. Intraperitoneal Fluid: Trivial, likely physiologic. ?? Transvaginal exam performed to better visualize the adnexa. ?? IMPRESSION: 1. Endometrial thickness within physiologic limits for age. 2. Prior section. Previous hormonal treatments: Mirena IUD- removed after 1 year d/t discomfort, Nexplanon- removed after 1 year d/t irregular bleeding, Depo Lupron Current hormonal treatments: Depo Lupron administered 02/17/21 Other treatments: None Pathology proven endometriosis: 05/15/2020 LEFT SUPRAPUBIC MASS, EXCISION: 1. Endometriosis 2. Negative for malignancy Menses: Currently amenorrheic on Depo Lupron. History of sexual assault: No REVIEW OF SYSTEMS GI: Pain with defecation, primarily with constipation. No incontinence or hematochezia. Urinary: Urinary frequency. No hesitancy, burning, pain, or hematuria. DIAGNOSTICS OBJECTIVE PHYSICAL EXAM There were no vitals taken for this visit. General: Alert and oriented, well appearing, no acute distress. Psych: Appropriate affect, answers questions appropriately. HEENT Head: normocephalic Respiratory: Breaths nonlabored Abdomen: Soft and protuberant. No evidence of organomegaly. No discrete masses palpated. tender to palpation in left lower quadrant and along low transverse region of the abdomen. Positive Carnett's Sign. Lymph: No inguinal lymphadenopathy bilaterally. Pelvis: External genitalia were normal in appearance; no lesions noted. Urethral meatus was normal in size, location, and appearance. Urethra was negative. Bimanual exam reveals no CMT or uterine tenderness. Uterus is normal size. Vulvodynia exam: Negative Pelvic Floor Exam: Right levator ani muscle area:5 Right obturator internus muscle area: 0 Left levator ani muscle area:5 Left obturator internus muscle area:0 This visit was chaperoned by clinical assistant account manager Aggie Payne. IMPRESSION/REPORT/PLAN Diagnosis Plan 1. Endometriosis Obstetrics and Gynecology - Gynecology consult (clinic) External referral PT ([facility]) 2. Pain Pelvic Female Chronic 3. Pelvic Floor Tension Myalgia External referral PT ([facility]) It was a pleasure meeting Barbra today. We reviewed the protocol in our Endometriosis Clinic, which involves multidisciplinary consults, MRI imaging, review of MRI images in multidisciplinary conference, and conclusion of visits with my esteemed colleague, Dr. Nate Barrios. Barbra reports LLQ and low back pain starting in 2019. She is status post excision of a left lower abdominal wall mass in April 2020. Pathology was positive for endometriosis. Pelvic plain has progressively worsened following this procedure. Today, Barbra reports constant left lower quadrant and back pain. Pain is rated a 10/10. She did receive Depo Lupron on February 17, 2021. This has made no impact on her pain. A pelvic exam was performed today. Mild pelvic floor tension myalgia was palpated along the bilateral anterior levators. We discussed that she may benefit from pelvic floor physical therapy. She is scheduled to meet with a pelvic floor physical therapist on June 25, 2021. Barbra is also pre scheduled for cognitive behavioral therapy. We briefly reviewed the pelvic MRI from 05/05/21. The MRI noted possible endometriosis along the scar and endometriosis implants. Barbra is scheduled to meet with Dr. Barrios tomorrow, 05/07/21. The pelvic MRI and plan of care willbe discussed in detail during this visit. She verbalized understanding and denied further questions. Shefali Hernandez APRN, [place]y.N.Belen., M.S.N. Total time: 60 minutes documented in this encounter Plan of Treatment Not on filedocumented as of this encounter Visit Diagnoses Diagnosis Endometriosis - Primary Pain Pelvic Female Chronic Pelvic Floor Tension Myalgia documented in this encounter Additional Health Concerns Assessment Noted Time PHQ-9 Depression Total Score: 1 11/16/2012 11:45 AM CS T documented as of this encounter
--- OUTSIDE RECORDS SUMMARY | 2022-07-09 20:40 | XMS_ITS | Encounter Summary ---
:1990 Author Organization [facility] Address [address] [place] [address] Care Team Providers Name Role Phone Unavailable Primary Care Provider Unavailable Encounter Details Date Type Department Care Team Description 06/18/2020 Hospital Encounter Department of [place], Menstrua l Irregularity; Laboratory Medicine Ramonita Bose. Dysmenorrhea in [facility] [address] [place] [facility] [address] [phone] Social History Tobacco Use Types Packs/Day Years [...] or relatives? How often do you attend jew or Never 2020 catholic services? Do you belong to any clubs or No 06/25/2021 organizations such as jew groups, unions, fraternal or athletic groups, or [...] mg Take 1 tablet (25 30 tablet 05/05/2021 tablet mg total) by mouth daily. Take with 50 mg tablets for 75 mg daily. sertraline (ZOLOFT) 50 mg Take 1 tablet (50 30 tablet 05/05/2021 tablet mg total) by mouth daily. documented as of this encounter Plan of Treatment Not on filedocumented as of this encounter Procedures Procedure Name Priority Date/Time Associated Diagnosis Comme nts TESTOSTERONE, TOT, Routine 06/18/2020 5:16 PM Menstrual Res ults for this BIOAVAILABLE, AND CDT Irregularity procedure are in FREE, S the results section. SEX HORMONE-BINDING Routine 06/18/2020 5:16 PM Menstrual Re sults for this GLOBULIN (SHBG), S CDT Irregularity procedure are in the results section. 17-HYDROXYPROGESTER Routine 06/18/2020 5:16 PM Menstrual Re sults for this ONE, S CDT Irregularity procedure are i n the results section. PROLACTIN, S Routine 06/18/2020 5:16 PM Menstrual Results f or this CDT Irregularity procedure are i n the results section. THYROID-STIMULATING Routine 06/18/2020 5:16 PM Menstrual Re sults for this HORMONE-SENSITIVE CDT Irregularity procedure are in (S-TSH) the results section. documented in this encounter Results Prolactin (06/18/2020 5:16 PM CDT) athologist Signature Prolactin Total 11.0 4.8 - 23.3 06/19/2020 DTL ng/mL 7:16 AM CDT Comment: ----ADDITIONAL INFORMATION---- The testing method is an electrochemilum inescence assay manufactured by [employer] and performed on the Karoline system. Values obtained with different assay met hods or kits may be different and cannot be used inte rchangeably. Test results cannot be interpreted as ab solute evidence for the presence or absence of malignant disease. Specimen Anatomical Collection Method Collection Time Receive d Time (Source) Location / / Volume Laterality Blood (Blood, 06/18/2020 5:16 PM 06/19/20 6:37 Venous) CDT AM CDT Lidya Hanson M.D. LAB BLOOD ADD-ON Performing Organization Address City/State/ZIP Code Phon e Number [facility] - [address] [place], [place] [address] [facility] [place] [address] Laboratories-[facility] 200 [facility] 17-Hydroxyprogesterone (06/18/2020 5:16 PM CDT) athologist Signature 17-Hydroxyproge <40 ng/dL 06/20/2020 [facility] sterlizbet, S 8:59 PM CDT Comment: ----REFERENCE VALUE---- < 80 (Follicular) <285 (Luteal) ----ADDITIONAL INFORMATION---- This test was developed and its performa nce characteristics determined by [facility] in a manner consistent with CLIA requirements. This test has not been cleared or approved by the [place] and Drug Administration. Specimen Anatomical Collection Method Collection Time Receive d Time (Source) Location / / Volume Laterality Blood (Blood, 06/18/2020 5:16 PM 06/19/20 20 Venous) CDT 12:14 PM CDT Lidya Hanson M.D. LAB BLOOD NON ADD-ON Performing Organization Address City/[facility] [address]/[facility] Phon e Number [facility] [address] [place] [address] [address] [facility] [place] [address] Laboratory Medicine and Pathology [address] [place] [address] Dr. CROCKER Sex Hormone-Binding Globulin (SHBG) (06/18/2020 5:16 PM CDT) athologist Signature Sex Hormone 30 18-144 06/19/2020 [facility] Binding (non-pregna 9:42 AM CDT Globulin, S nt) nmol/L Specimen Anatomical Collection Method Collection Time Receive d Time (Source) Location / / Volume Laterality Blood (Blood, 06/18/2020 5:16 PM 06/19/20 20 8:18 Venous) CDT AM CDT Lidya Hanson M.D. LAB BLOOD ADD-ON Performing Organization Address [facility] [address]/[facility] Phon e Number [address] [place] [address] [facility] [place] [address] Laboratory Medicine and Pathology [address] [place] [address] Dr. CROCKER Testosterone, Total, Bioavailable, and Free (06/18/2020 5:16 PM CDT) athologist Signature Testosterone, 6.9 ng/dL 06/20/2020 [facility] Bioavailable, S 10:12 PM CDT Comment: ----REFERENCE VALUE---- Females (non-oophorectomized): 0.8-4.0 (On oral estrogen) 0.8-10 (Not on oral estrogen) ----ADDITIONAL INFORMATION---- Testing performed by Differential Precip itation. This test was developed and its performa nce characteristics determined by [facility] in a manner consistent with CLIA requirements. This test has not been cleared or approved by the [place] and Drug Administration. Testosterone, Total by Mass 30 8 - 60 ng/dL 0 8:39 AM CDT [facility] Spectrometry, Serum Comment: ----ADDITIONAL INFORMATION---- Testing performed by Liquid Chromatograp hy-Tandem Mass Spectrometry (LC-MS/MS). This test was developed and its performa nce characteristics determined by [facility] in a manner consistent with CLIA requirements. This test has not been cleared or approved by the [place] and Drug Administration. Testosterone, Free, S 0.69 0.06 - 1.06 ng/dL 06/21/2020 3:54 PM CDT [facility] Comment: ----ADDITIONAL INFORMATION---- Testing performed by Milena holder This test was developed and its performa nce characteristics determined by [facility] in a manner consistent with CLIA requirements. This test has not been cleared or approved by the [place] and Drug Administration. Specimen Anatomical Collection Method Collection Time Receive d Time (Source) Location / / Volume Laterality Blood (Blood, 06/18/2020 5:16 PM 06/19/20 6:50 Venous) CDT AM CDT Lidya Hanson M.D. LAB BLOOD NON ADD-ON Performing Organization Address City/[facility] [address]/ZIP Code Phon e Number [facility] [address] [place], [place] [address] [place] [address] CENTER [facility] [place] [address] Laboratory Medicine and Pathology [address] CROCKER S-TSH (Thyroid-Stimulating Hormone - Sensitive) (06/18/2020 5:16 PM CDT) athologist Signature TSH, Sensitive 1.4 0.3 - 4.2 06/18/2020 [place] mIU/L 6:21 PM CDT Comment: Biotin has been identified by the best martins as a potential interfering substance. ??Higher concentr ations of biotin may be found in multivitamins, hair/nail supple ments, and workout supplements. ??If the result does not [facility] clinical observations, repeat testing after patient refrains fr om the use of supplements for at least 12 hours. Specimen Anatomical Collection Method Collection Time Receive d Time (Source) Location / / Volume Laterality Blood (Blood, 06/18/2020 5:16 PM 06/18/20 20 6:01 Venous) CDT PM CDT Lidya Hanson M.D. LAB BLOOD ADD-ON Performing Organization Address City/[facility] [address]/ZIP [facility] Phon e Number [facility] [address] [place] [address] [place] [address] System in [place] [address] documented in this encounter Visit Diagnoses Diagnosis Menstrual Irregularity Dysmenorrhea documented in this encounter Additional Health Concerns Assessment Noted Time PHQ-9 Depression Total Score: 1 11/16/2012 11:45 AM CS T documented as of this encounter
--- OUTSIDE RECORDS SUMMARY | 2022-07-09 20:40 | XMS_ITS | Encounter Summary ---
:1990 Author Organization [facility] Address [address] [place] [address] Care Team Providers Name Role Phone Unavailable Primary Care Provider Unavailable Reason for Visit Reason Comments Endometriosis Outpatient (Routine) - Closed Specialty Diagnoses / Procedures Referred By Contact Refer red To Contact Obstetrics and Diagnoses Endometriosis Aracely Shah, [facility] Gynecology EXHAUSTER ENGINEER, C.N.P. [address] [place] [address] Referral ID Status Reason Start Date Expiration Date Visits Requ ested Visits Authorized [id number] Closed 02/12/2021 02/12/2022 1 1 Encounter Details Date Type Department Care Team Description 02/17/2021 Office Visit Department of Link Ascencio, Aracelyio sis (Primary Obstetrics and M.D. Dx) Gynecology in [address] [place] [address] [address] [facility] [address] [place], [place] [phone] [address] (Work) [phone] Social History Tobacco Use Types Packs/Day Years [...] do you attend samaritan or Never 2020 gnosticism services? Do you belong to any clubs or No 06/25/2021 organizations such as samaritan groups, unions, fraWeatlas or athletic groups, or school groups? How [...] Reading Time Taken Comments Blood Pressure 124/70 02/17/2021 2:19 PM CDT Pulse 96 02/17/2021 2:19 PM CDT Temperature - - Respiratory Rate - - Oxygen Saturation - - Inhaled Oxygen Concentration - - Weight 108 kg (238 lb 10.4 oz) 02/17/2021 2:19 PM CDT Height 151 cm (4' 11.45) 02/17/2021 2:19 PM CDT Body Mass Index 47.48 02/17/2021 2:19 PM CDT documented in this encounter Progress Notes Link Ascencio M.D. - 02/17/2021 2:30 PM CDT Consult note Consult requested by Aracely Shah HISTORY OF PRESENT ILLNESS Barbra García Carol is a 30 y.o. who presents in consultation regarding Abnormal Uterine Bleeding as well as pelvic pain secondary to known endometriosis. History of Caesarean x5 with bilateral salpingectomy at last delivery. History of endometriosis as proven by excision of a mass within the left lower abdominal wall/groin on 05/15/2020, per the operative report, The mass was dissected from surrounding tissues using a combination of blunt dissection and electrocautery, and was then sent to pathology for further evaluation. The mass was noted to involve the deep fascia.?? Also noted with her 5th section was scarring of the uterus to the abdominal wall as noted in the operative report dated 11/09/2018: There was significant scarring of the uterus to the anterior abdominal wall. This was taken down in layers with Bovie electrocautery. She has previously received counseling with options of hormonal suppression including Depo Lupron, she is not interested in these options. She understands that there will likely be residual deep pelvicendometriosis following hysterectomy. Menstrual periods were normal until 2018. Since that time reports ongoing cyclic pelvic pain, which frequently causes her to miss work. Pain is constant, however much worse during her periods. She alsonotices significant pain with bowel movements during her periods over the last 2-3 years. Dyspareunia is also new over this time, however pain generally only with initiation of intercourse and resolvesonce underway. Menstrual bleeding is very heavy, requiring her to wear a diaper, which requires changing every 1-2 hours. Heavy bleeding is also new over the last 2-3 years. Strongly desires surgical management for her bleeding as well as endometrial. OBSTETRICAL HISTORY: , status post Caesarean x5 GYNECOLOGIC HISTORY: Patient's last menstrual period was 01/22/2021 (exact date).. Menses are regular, every month, lasting 2 days, with heavy flow, and very painful Last pap normal, June 2019, per patient report MEDICAL HISTORY Past Medical History: Diagnosis Date ??? Adhesion Pelvic Female 07/05/2014 ??? Body Mass Index 45.0 To 49.9 Adult ([facility]) 01/12/2017 Rule activated problem due to BMI 45-49 posted on 01/12 at 08:26 CDT. ??? Deficiency Vitamin D 06/24/2016 ??? Depression Anxiety 03/10/2016 Depression Anxiety ??? Stone Kidney Personal History 01/12/2017 SURGICAL HISTORY Past Surgical History: Procedure Laterality Date ??? SECTION N/A 11/26/2009 delivery only;.. ??? SECTION N/A 12/30/2012 delivery only;.. ??? SECTION N/A 06/20/2014 delivery only;.. ??? SECTION N/A 04/23/2016 section ??? SECTION ??? LAPAROSCOPIC CHOLECYSTECTOMY N/A 01/08/2015 Laparoscopic cholecystectomy ??? TONSILLECTOMY N/A 2015 Tonsillectomy FAMILY HISTORY Family History Problem Relation Age of Onset ??? Diabetes Mother ??? Arthritis Maternal Grandmother ??? Hypertension Maternal Grandfather ??? Diabetes Maternal Grandfather ??? Diabetes Paternal Grandfather ??? Alzheimer's disease Paternal Grandfather SOCIAL HISTORY Social History Socioeconomic History ??? Marital status: Spouse name: Not on file ??? Number of children: Not on file ??? Years of education: Not on file ??? Highest education level: Not on file Occupational History ??? Not on file Tobacco Use ??? Smoking status: Never Smoker ??? Smokeless tobacco: Never Used Substance and Sexual Activity ??? Alcohol use: No ??? Drug use: No ??? Sexual activity: Yes Partners: Male control/protection: None Comment: No history of STDs. + recent pap smear. Other Topics Concern ??? Not on file Social History Narrative ??? Not on file Social Determinants of Health Financial Resource Strain: [...] Gatherings with Friends and Family: ??? Attends Rastafari Services: ??? Active Member of Clubs or Organizations: ??? Attends Club or Organization Meetings: ??? Marital Status: Intimate Partner Violence: ??? Fear of Current or Ex-Partner: ??? Emotionally Abused: ??? Physically Abused: ??? Sexually Abused: ALLERGIES/CONTRAINDICATIONS Cat dander CURRENT MEDICATIONS Current Outpatient Medications Medication Sig Dispense Refill ??? albuterol (PROVENTIL HFA,VENTOLIN HFA) 90 mcg/actuation inhaler Inhale 1-2 puffs. ??? amitriptyline (ELAVIL) 25 mg tablet Take 25 mg by mouth. ??? aspirin [address] tablet Take by mouth. ??? cetirizine (ZyrTEC) 10 mg tablet Take 10 mg by mouth. ??? cholestyramine (QUESTRAN) 4 gram packet Take 1 packet by mouth. ??? ibuprofen (ADVIL,MOTRIN) 600 mg tablet Take 600 mg by mouth. ??? metoclopramide (REGLAN) 5 mg tablet Take 5 mg by mouth. ??? ondansetron (ZOFRAN) 4 mg tablet 0 ??? sertraline (ZOLOFT) 100 mg tablet Take 150 mg by mouth. ??? sertraline (ZOLOFT) 25 mg tablet Take 1 tablet (25 mg total) by mouth daily. Take with 50 mg tablets for 75 mg daily. (Patient not taking: Reported on 05/22/2019 ) 30 tablet 11 ??? sertraline (ZOLOFT) 50 mg tablet Take 1 tablet (50 mg total) by mouth daily. 30 tablet 11 ??? topiramate (TOPAMAX) 50 mg tablet Take 50 mg by mouth. ??? traMADoL (ULTRAM) 50 mg tablet Take 50 mg by mouth. ??? venlafaxine (EFFEXOR) 75 mg tablet Take 75 mg by mouth. No current facility-administered medications for this visit. REVIEW OF SYSTEMS A 10 point Review of Systems was negative, other than as noted in the History of Present Illness. OBJECTIVE PHYSICAL EXAMINATION VITAL SIGNS Vitals: 02/17/21 1419 BP: 124/70 Pulse: 96 Weight: 108 kg Height: 151 cm Body mass index is 47.48 kg/m??. General: Alert, oriented, appropriately interactive, in no acute distress. Cardiovascular: Regular rate and rhythm. Respiratory: Clear to auscultation bilaterally. Good effort, without distress. Abdomen: Soft, obese, diffusely tender without focus, nondistended. No masses appreciated. No hernias. No inguinal lymphadenopathy. Musculoskeletal: Normal gait. Symmetric movements of upper extremities and lower extremities. Lower Extremities: Nontender, no edema. DIAGNOSTICS Hemoglobin 13.3, prolactin 11, TSH 1.4 (June 2020) Pelvic US (07/16): Uterus: 4.6 x 5.2 x 8.8 cm. Anteverted Myometrium: Presumed scar. Endometrium: Normal. Thickness: 10 mm Right ovary: Only seen transabdominally. Ovarian volume: Visually normal. Left ovary: Normal. Ovarian volume: 19 ml. Normal Doppler characteristics of the ovary. Intraperitoneal Fluid: Trivial, likely physiologic. Transvaginal exam performed to better visualize the adnexa. IMPRESSION: 1. Endometrial thickness within physiologic limits for age. 2. Prior section. The following portions of the patient's history were reviewed and updated as appropriate: allergies,current medications, family history, medical history, social history, surgical history and problem list. ASSESSMENT / PLAN Barbra Medina is a 30 y.o. who presents with chronic cyclic pelvic pain secondary to known endometriosis as well as abnormal uterine bleeding, strongly desires surgical management. We reviewed her prior surgical as well as pathology findings. We reviewed the nature of endometriosis, we also discussed potential surgical complications given no scar tissue from prior sections as well as likely scar tissue from her endometriosis. Risks of injury to bladder, bowels, or vasculature are increased in the setting of dense scar tissue. We read also reviewed that we would recommend she retain her ovaries, and that there will likely be residual endometriosis deep in her pelvis,that she could continue to potentially have cyclic the pelvic pain after a hysterectomy. Though, many women with endometriosis have significant improvements to pain following a hysterectomy. I am recommending that she sees a residential program manager who specializes in endometriosis for better outcomes for a potent ial surgery. She is requesting something to improve pain while she waits for surgery, we reviewed options and we will plan for a 1 time dose of Depo Lupron. This has been ordered. Link Ascencio M.D. 02/17/2021 2:25 PM CDT documented in this encounter Plan of Treatment Not on filedocumented as of this encounter Visit Diagnoses Diagnosis Endometriosis - Primary documented in this encounter Additional Health Concerns Assessment Noted Time PHQ-9 Depression Total Score: 1 11/16/2012 11:45 AM CS T documented as of this encounter
--- OUTSIDE RECORDS SUMMARY | 2022-07-09 20:40 | XMS_ITS | Encounter Summary ---
:[address] [facility] Address [address] [place] [address] Care Team Providers Name Role Phone Unavailable Primary Care Provider Unavailable Reason for Referral Outpatient (Routine) - Closed Specialty Diagnoses / Procedures Referred By Contact Refer red To Contact Diagnoses Lesion Soft Tissue Matthew Andrade M.D. [facility] Procedures US Assisted Guidance [address] [place], [place] [address] Referral ID Status Reason Start Date Expiration Date Visits Requ ested Visits Authorized [id number] Closed 05/08/2021 05/08/2022 1 1 MRI/CAT/PET Scan (Routine) - Closed Specialty Diagnoses / Procedures Referred By Contact Refer red To Contact Radiology Diagnoses Lesion Soft Tissue Matthew Andrade M.D. [facility] Procedures CT Soft Tissue Ablation [address] [place], [place] [address] Referral ID Status Reason Start Date Expiration Date Visits Requ ested Visits Authorized [id number] Closed 05/08/2021 05/08/2022 1 1 Encounter Details Date Type Department Care Team Description 05/08/2021 Orders Only Department of Rakesh Lopez Lesion So ft Tissue (Primary Dx); Radiology, Silvana Garner R.N., C.M.S.R .N. Preprocedural Lab Exam; [facility], in [address] [facility] Contact With And (Suspected) Exposure To COVID-19 [place], [place] [address] [facility] [address] [place] [address] Social History Tobacco Use Types Packs/Day Years [...] do you attend methodist or Never 2020 presybeterian services? Do you belong to any clubs or No 06/25/2021 organizations such as methodist groups, unions, fraternal or athletic groups, or [...] on filedocumented as of this encounter Results CT Soft Tissue Ablation [...] fellows wer e discussed. Sedation provided by CRANIOLOGIST. The risks, benefits, and alternatives to the [...] reviewed. Discussed risks, benefits, alternatives for procedure, cindy goyal obtained informed consent. Patient understands information and [...] fellows wer e discussed. Sedation provided by CRANIOLOGIST. The risks, benefits, and alternatives to the [...] in the left abdominal wall. NR Matthew Andrade M.D. IMG CT PROCEDURES US Assisted Guidance (06/19/2021 1:48 PM CDT) [...] fellows wer e discussed. Sedation provided by CRANIOLOGIST. The risks, benefits, and alternatives to the [...] to a post-operative bed, a ventilator in [facility] intensive care unit, blood products, and personal [...] fellows wer e discussed. Sedation provided by CRANIOLOGIST. The risks, benefits, and alternatives to the [...] in the left abdominal wall. NR Matthew Andrade M.D. IMG US PROCEDURES Creatinine with Estimated GFR (06/17/2021 11:54 AM CDT) P athologist Signature Creatinine 0.65 0.59 - 06/17/2021 [place] 1.04 mg/dL 12:49 PM CDT eGFR-Black/Afric >90 >=60 06/17/2021 [place] an Romanian mL/min/BSA 12:49 PM CDT Comment: ----ADDITIONAL INFORMATION---- [...] Address City/State/ZIP Code Phon e Number [facility]- [address] [place] [address] [place] [address] System in [place] [address] [place] [address] Prothrombin Time (PT) (06/17/2021 11:54 AM CDT) athologist Signature Prothrombin 10.7 9.4 - 12.5 [...] Address City/State/ZIP Code Phon e Number [facility]- [address] [place] [address] [place] [address] System in [place] [address] [facility] CBC without Differential (06/17/2021 11:54 AM CDT) athologist Signature Hemoglobin 13.4 11.6 - 06/17/2021 [...] M.D. LAB BLOOD ADD-ON Performing Organization Address City/[facility]/ZIP Code Phon e Number [facility]- [address] [place] [address] [place] [address] System in [place] [address] SARS Coronavirus-2 RNA, V Asymptomatic (06/17/2021 11:27 AM CDT) [facility] Method Time Signature SARS-CoV-2 Swab, 06/18/2021 [...] pe rformed using the Aptima SARS-CoV-2 assay ([employer] on the Oculus360s tem under emergency use authorization (EUA) by the U.S. Food and Drug Administ ration. Fact sheets for this EUA assay can be fo und at the following links: For Healthcare Providers: https://www.fd a.gov/media/891694/download For Patients: https://www.fda.gov/media/ 617820/download Specimen Anatomical Collection Method Collection Time Receive d Time (Source) Location / / Volume Laterality Varies 06/17/2021 11:27 06/17/2021 8:18 (Nasopharynx) AM CDT PM CDT Matthew Andrade M.D. LAB MICROBIOLOGY - GENERAL O RDERABLES Performing Organization Address City/[facility]/ZIP Code Phon e Number [facility]- [address] [place] [address] [place] [address] System in [place] [address] [facility] documented in this encounter Visit Diagnoses Diagnosis Lesion Soft Tissue - Primary Preprocedural Lab Exam Contact With And (Suspected) Exposure To COVID-19 Lesion Soft Tissue Lesion Soft Tissue documented in this encounter Additional Health Concerns Assessment Noted Time PHQ-9 Depression Total Score: 1 11/16/2012 11:45 AM CS T documented as of this encounter
--- OUTSIDE RECORDS SUMMARY | 2022-07-09 20:40 | XMS_ITS | Encounter Summary ---
:[address] [facility] Address [address] [place] [address] Care Team Providers Name Role Phone Unavailable Primary Care Provider Unavailable Encounter Details Date Type Department Care Team Description 04/30/2021 Hospital Encounter Department of Laboratory Belol Snyder, Medicine, [facility], in [place], [address] [place], [place] [address] [facility] [address] [place] [address] [phone] Social History Tobacco Use Types Packs/Day Years [...] or relatives? How often do you attend bahai or Never 2020 druze services? Do you belong to any clubs or No 06/25/2021 organizations such as bahai groups, unions, fraternal or athletic groups, or [...] slept in a group home (including now)? Sex Assigned at Date Recorded Female 04/12/2018 10:21 PM CDT documented as of this encounter Medications at Time of Discharge Medication Sig Dispensed Refills Start Date End Date albuterol (PROVENTIL Inhale 1-2 puffs as 0 2017 HFA,VENTOLIN HFA) 90 needed. mcg/actuation inhaler amitriptyline (ELAVIL) 25 Take 25 mg by mouth 0 0 02/03/2021 mg tablet at bedtime. cetirizine (ZyrTEC) 10 mg Take 10 mg by mouth 0 0 05/24/2019 tablet as needed. cholestyramine (QUESTRAN) Take 1 packet by 0 12/2019 4 gram packet mouth as needed. metoclopramide (REGLAN) 5 Take 5 mg by mouth 0 mg tablet as needed. ondansetron (ZOFRAN) 4 mg Take 4 mg by mouth 0 tablet daily. sertraline (ZOLOFT) 100 mg Take 100 mg by 0 03/07 tablet mouth at bedtime. topiramate (TOPAMAX) 50 mg Take 50 mg by mouth 0 03/07/2020 tablet at bedtime. traMADoL (ULTRAM) 50 mg Take 50 mg by mouth 0 tablet as needed. venlafaxine (EFFEXOR) 75 Take 75 mg by [...] mg Take 1 tablet (50 30 tablet 11 05/05/2021 tablet mg total) [...]
--- OUTSIDE RECORDS SUMMARY | 2022-07-09 20:40 | XMS_ITS | Encounter Summary ---
:1990 Author Organization [facility] Address [address] [place] [address] Care Team Providers Name Role Phone Unavailable Primary Care Provider Unavailable Reason for Visit Reason Onset Date Comments Outpatient COVID-19 Testing 04/29/2021 Encounter Details Date Type Department Care Team Description 04/29/2021 External Outreach Department of [facility] Jc Snyder Contact With And Medicine, Lida Esparza D.O. (Suspected) Exposure [facility], in [place], [address] To COVID-19 (Primary [place], [place] Dx) [address] [address] [place], [place] [phone] [address] (Work) [phone] Social History Tobacco Use Types Packs/Day Years [...] or relatives? How often do you attend lutheran or Never 2020 zoroastrianism services? Do you belong to any clubs or No 06/25/2021 organizations such as lutheran groups, unions, fraternal or athletic groups, or [...] documented as of this encounter Progress Notes Sharla Wise L.PWandreN. - 04/29/2021 11:06 AM CDT Encounter created for COVID-19 screening. documented in this encounter Plan of Treatment Not on filedocumented as of this encounter Procedures Procedure Name Priority Date/Time Associated Diagnosis Comme nts SARS CORONAVIRUS-2 Routine 04/30/2021 1:11 PM Contact With And Results for this RNA, V CDT (Suspected) Exposure procedu re are in To COVID-19 the results section. documented in this encounter Results SARS Coronavirus-2 RNA, V Asymptomatic (04/30/2021 1:11 PM CDT) [facility] Method Time Signature SARS-CoV-2 Swab, 04/30/2021 [place] Specimen Nasopharynx 11:52 PM Source CDT SARS CoV-2 Undetected Undetected 04/30/2021 [place] RNA, TMA 11:52 PM CDT Comment: SARS-CoV-2 RNA absent. This result does not rule out COVID-19 in the patient, as the sensitivity of the test depends o n the timing of the specimen collection and the quality of the specim en. Result should be correlated with patient's history and clinical presentat ion. ----ADDITIONAL INFORMATION---- This molecular amplification test was pe rformed using the Aptima SARS-CoV-2 assay ([employer] on the [employer] tem under emergency use authorization (EUA) by the U.S. Food and Drug Administ ration. Fact sheets for this EUA assay can be fo und at the following links: For Healthcare Providers: https://www.fd a.gov/media/871911/download For Patients: https://www.fda.gov/media/ 737670/download Specimen Anatomical Collection Method Collection Time Receive d Time (Source) Location / / Volume Laterality Varies 04/30/2021 1:11 PM 7:13 (Nasopharynx) CDT PM CDT Jc Snyder D.O. LAB MICROBIOLOGY - GENERAL O RDERABLES Performing Organization Address City/State/ZIP Code Phon e Number [facility]- [address] [place] [address] [place] [address] System in [place] [address] [place] [address] documented in this encounter Visit Diagnoses Diagnosis Contact With And (Suspected) Exposure To COVID-19 - Primary documented in this encounter Additional Health Concerns Infection Onset Date Last Indicated Resolved Time COVID19 Pending 04/29/2021 04/30/2021 04/30/2021 11:53 PM CDT Assessment Noted Time PHQ-9 Depression Total Score: 1 11/16/2012 11:45 AM CS T documented as of this encounter
--- OUTSIDE RECORDS SUMMARY | 2022-07-09 20:40 | XMS_ITS | Encounter Summary ---
:1990 Author Organization [facility] Address [address] [place] [address] Care Team Providers Name Role Phone Unavailable Primary Care Provider Unavailable Reason for Visit Reason Comments Other follow-up post Ultrasound dy smenorrhea Outpatient (Routine) - Closed Specialty Diagnoses / Procedures Referred By Contact Refer red To Contact Obstetrics and Diagnoses Menstrual Irregularity ROSENDO Hanson [facility] [place] [address] [place] [address] Referral ID Status Reason Start Date Expiration Date Visits Requ ested Visits Authorized [id number] Closed 06/18/2020 06/18/2021 1 1 Encounter Details Date Type Department Care Team Description 07/23/2020 Office Visit Department of Zackary Hanson (Primary Dx); Obstetrics and [place] Menstrual Irregularity; Gynecology in [address] Fever Of Unknown Origin; [place], [place] Morbid Severe Obesity Due To Excess Calories (HCC); [address] [phone] Dysmenorrhea; [place], [place] [phone] Need Vaccine I mmunization Influenza [id number] (Work) [phone] Social History Tobacco Use Types Packs/Day Years [...] do you attend pentecostalism or Never 2020 mormonism services? Do you belong to any clubs or No 06/25/2021 organizations such as pentecostalism groups, unions, fraternal or athletic groups, or [...] Sign Reading Time Taken Comments Blood Pressure 120/68 07/23/2020 4:24 PM CDT Pulse - - Temperature - - Respiratory Rate - - Oxygen Saturation - - Inhaled Oxygen Concentration - - Weight 107 kg (235 lb 10.8 oz) 07/23/2020 4:24 PM CDT Height - - Body Mass Index 48.15 04/14/2018 11:36 AM CDT documented in this encounter Progress Notes Lidya Hanson M.D. - 07/23/2020 4:30 PM CDT Images from the original note were not included. 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 female who presents for follow up of endometriosis. Barbra underwent excision of a mass within the left lower abdominal wall on 05/15/2020. Per the operative report, The mass was dissected from surrounding tissues using a combination of blunt dissection and electrocautery,and was then sent to pathology for further evaluation. The mass was noted to involve the deep fascia. Pathology returned showing endometriosis. She was sent here to discuss further treatment options. She reports that the pain in this area has improved, though she still has some pain there with menses, and the mass has resolved. She also complains of irregular menses. Sometimes she has 2 periods in amonth. The bleeding with menses is sometimes light and will stop and start. She has abnormal hair growth on her lower abdomen. Labs to evaluate for PCOS were ordered at the time of the last visit. Day #21 progesterone, testosterone levels, SHBG, prolactin, and TSH were normal. Insulin was elevated butwas not drawn when she was fasting, as was the plan. Also, her pelvic US was normal but was performed during the 2nd half of her cycle when her lining was thickened physiologically. We had discussed the option of medical management with depot lupron. She believes her insurance company has approved this. More recently, she reports that she can feel a small lump near her section incision on the left side and there is pain in this area. This is new. She also reports that she has not been feeling well over the last month. She reports fevers, and most recent high fever was to 102.5 F two days ago. She reports associated body aches, mild cough, loss of taste and smell. She has been taking tylenol and ibuprofen for this and has been off of work. She has been tested for COVID x 2 with negative results. The patient's allergies and current medications were reviewed and updated as appropriate. SYSTEMS REVIEW Constitutional: Positive for fatigue and fever. Negative for weight gain of more than 10 pounds and weight loss of more than 10 pounds. Skin: Negative for skin rash, change in mole or skin spot, breast lump and nipple discharge. Eyes: Negative for visual problems. ENT: Negative for difficulty hearing and sinus congestion. Respiratory: Positive for dry cough. Negative for coughing up mucus (phlegm), dyspnea and wheezing. Cardiovascular: Negative for chest pain, pressure or tightness and rapid or fluttering heart beat. Gastrointestinal: Positive for abdominal (belly) pain or cramping. Negative for constipation, diarrhea, heartburn, nausea and vomiting. Genitourinary: Negative for abnormal vaginal bleeding, incontinence, difficulty urinating, pain withurination and menses change or abnormal. Musculoskeletal: Positive for arthralgias and pain or stiffness in the joints. Negative for back pain. Neurological: Negative for numbness or shooting pain in hands, arms, legs, or feet, loss of balance or tendency to fall easily and headaches. Psychiatric/Behavioral: Negative for sleep disturbance, feeling down, depressed, or hopeless over past two weeks and feeling nervous, anxious, or on edge in past two weeks. OBJECTIVE Vitals: 07/23/20 1624 BP: 120/68 Weight: 107 kg PHYSICAL EXAM Constitutional General: She is not in acute distress. Appearance: Normal appearance. She is well-developed. HENT Head: Normocephalic and atraumatic. Eyes General: Vision grossly intact. Pulmonary Effort: Pulmonary effort is normal. No respiratory distress. Abdominal General: Abdomen is flat. Bowel sounds are normal. There is no distension. Palpations: Abdomen is soft. There is mass. Tenderness: There is abdominal tenderness in the left lower quadrant. There is no guarding or rebound. Neurological Mental Status: She is alert. Mental status is at baseline. Skin Findings: No lesion or rash. Psychiatric Mood and Affect: Mood normal. Behavior: Behavior normal. ASSESSMENT / PLAN Barbra Medina is a 30 y.o. female who presents for follow up of endometriosisand fever with generalized symptoms. #1 Endometriosis Overview: Mass within anterior abdominal wall involving the fascia excised on 05/15/2020. Discussed need for ovarian suppression to prevent recurrence. She has a new painful area with a small, palpable mass on the left. Will follow this closely. Discussed depo lupron to induce medical menopause, followed by supression with OCPs or depo provera. She believes her insurance company has approved this and will plan to start the injections at the time of her next visit. #2 Menstrual Irregularity Overview: Associated with abnormal hair growth, acne, and weight gain. TSH, prolactin, testosterone studies, SHBG, 17-hydroxyprogesterone, and day #21 progesterone level all normal. Fasting insulin not accurate,as she was not fasting when this was collected. Will also get US between days 5-10 of cycle to further evaluate. She will call with onset of menses to schedule this. Orders: - Obstetrics and Gynecology office visit (clinic) - Obstetrics and Gynecology office visit (clinic); Future; Expected date: 08/23/2020 #3 Fever Of Unknown Origin Overview: With associated cough, loss of taste and smell, and body aches. COVID test negative x 2. Will order testing for EBV and CBC to further evaluate. Orders: - Infectious Mononucleosis, Rapid Test; Future; Expected date: 07/23/2020 - EBV DNA Detect / Quant, Plasma; Future; Expected date: 07/23/2020 - CBC with Differential, Blood; Future; Expected date: 07/23/2020 #4 Morbid Severe Obesity Due To Excess Calories (HCC) Overview: May be contributing to ovulatory dysfunction. #5 Dysmenorrhea Overview: Pelvic US to further evaluate. Will recommend ovarian supression due to history of endometriosis. This should help with dysmenorrhea, as well. #6 Need Vaccine Immunization Influenza - influenza vaccine quad (FLUZONE/FLUARIX) (6 months and older) (PF) Followup: Tomorrow for labs, on days 5-10 of cycle for pelvic US, and in 1 month for follow up and likely depot lupron shot. documented in this encounter Plan of Treatment Not on filedocumented as of this encounter Results CBC with Differential, Blood (07/24/2020 1:35 PM CDT) athologist Signature Hemoglobin 13.3 11.6 - 07/24/2020 [facility] 15.0 g/dL 1:44 PM CDT Hematocrit 41.2 35.5 - 07/24/2020 [facility] 44.9 % 1:44 PM CDT Erythrocytes 4.63 3.92 - 07/24/2020 [facility] 5.13 1:44 PM CDT x10(12)/L MCV 89.0 78.2 - 07/24/2020 [facility] 97.9 fL 1:44 PM CDT RBC Distrib Width 12.8 12.2 - 07/24/2020 [facility] 16.1 % 1:44 PM CDT Platelet Count 336 157 - 371 07/24/2020 [facility] x10(9)/L 1:44 PM CDT Leukocytes 7.7 3.4 - 9.6 07/24/2020 [facility] x10(9)/L 1:44 PM CDT Neutrophils 4.62 1.56 - 07/24/2020 [facility] 6.45 1:44 PM CDT x10(9)/L Lymphocytes 2.49 0.95 - 07/24/2020 [facility] 3.07 1:44 PM CDT x10(9)/L Monocytes 0.34 0.26 - 07/24/2020 [facility] 0.81 1:44 PM CDT x10(9)/L Eosinophils 0.20 0.03 - 07/24/2020 [facility] 0.48 1:44 PM CDT x10(9)/L Basophils 0.02 0.01 - 07/24/2020 [facility] 0.08 1:44 PM CDT x10(9)/L Specimen Anatomical Collection Method Collection Time Receive d Time (Source) Location / / Volume Laterality Blood (Blood, 07/24/2020 1:35 PM 07/24/20 20 1:39 Venous) CDT PM CDT Liyda Hanson M.D. LAB BLOOD ADD-ON Performing Organization Address City/[facility]/ZIP Code Phon e Number [facility] [address] [place] [address] [place] [address] System in [place] [address] EBV DNA Detect / Quant, Plasma (07/24/2020 1:35 PM CDT) [facility] Method Time Signature EBV DNA Undetected Undetected 07/25/2020 [facility] Detect / IU/mL 9:13 PM CDT Quant, P Comment: Result in log IU/mL is Undetected. EBV DNA is not detected. ----ADDITIONAL INFORMATION---- This laboratory-developed, real-time PCR assay has a quantification range of 100 to 5,000,000 IU/mL (2.00 log IU/mL t o 6.70 log IU/mL). This test was developed using an analyte specific reagent. Its performance characteristics were determined by [facility] in a manner consistent with CLIA requirements. This test has not bee n cleared or approved by the U.S. Food and Drug Administration. Specimen Anatomical Collection Method Collection Time Receive d Time (Source) Location / / Volume Laterality Blood (Blood, 07/24/2020 1:35 PM 07/25/20 20 8:17 Venous) CDT AM CDT Lidya Hanson M.D. LAB MICROBIOLOGY - BLOOD ORD ERABLES Performing Organization Address City/State/ZIP Code Phon e Number [facility] [address] [place] [address] [facility] [place] [address] Laboratory Medicine and Pathology [address] [place] Infectious Mononucleosis, Rapid Test (07/24/2020 1:35 PM CDT) Analysis Performed At Path logist Time Signature Infectious [place] Negative Negative 07/24/2020 [facility] Test, B 1:51 PM CDT Specimen Anatomical Collection Method Collection Time Receive d Time (Source) Location / / Volume Laterality Blood (Blood, 07/24/2020 1:35 PM 07/24/20 1:39 Venous) CDT PM CDT Lidya Hanson M.D. LAB MICROBIOLOGY - BLOOD ORD ERABLES Performing Organization Address City/State/ZIP Code Phon e Number [facility]- [address] [place] [address] [place] [address] System in [place] [address] documented in this encounter Visit Diagnoses Diagnosis Endometriosis - Primary Menstrual Irregularity Fever Of Unknown Origin Morbid Severe Obesity Due To Excess Angélica norris (HCC) Dysmenorrhea Need Vaccine Immunization Influenza documented in this encounter Additional Health Concerns Assessment Noted Time PHQ-9 Depression Total Score: 1 11/16/2012 11:45 AM CS T documented as of this encounter
--- OUTSIDE RECORDS SUMMARY | 2022-07-09 20:40 | XMS_ITS | Encounter Summary ---
:1990 Author Organization [facility] Address [address] [place] [address] Care Team Providers Name Role Phone Unavailable Primary Care Provider Unavailable Encounter Details Date Type Department Care Team Description 12/27/2020 Orders Only [facility] PCP [facility] Sa joleen Acosta M.D. [address] [place], [place] [phone] (Wo rk) Social History Tobacco Use Types [...] or relatives? How often do you attend shinto or Never 2020 catholic services? Do you belong to any clubs or No 06/25/2021 organizations such as shinto groups, unions, fraternal or athletic groups, or [...] place to sleep or slept in a detention (including now)? Sex Assigned at Date Recorded Female 04/12/2018 10:21 PM CDT documented as of this encounter Plan of Treatment Not on filedocumented as of this encounter Visit Diagnoses Not on filedocumented in this encounter Additional Health Concerns Assessment Noted Time PHQ-9 Depression Total Score: 1 11/16/2012 11:45 AM CS T documented as of this encounter
--- OUTSIDE RECORDS SUMMARY | 2022-07-09 20:40 | XMS_ITS | Encounter Summary ---
:1990 Author Organization [facility] Address [address] [place] [address] Care Team Providers Name Role Phone Unavailable Primary Care Provider Unavailable Encounter Details Date Type Department Care Team Description 07/24/2020 Hospital Encounter Department of [place], Fever Of Unknown Laboratory Medicine Ramonita Bsoe. Origin in [address] [place] [phone] Social History Tobacco Use Types Packs/Day Years [...] or relatives? How often do you attend voodoo or Never 2020 yazdanism services? Do you belong to any clubs or No 06/25/2021 organizations such as voodoo groups, unions, fraternal or athletic groups, or [...] place to sleep or slept in a residential (including now)? Sex Assigned at Date Recorded [...] Procedure Name Priority Date/Time Associated Comments Diagnosis EBV DNA DETECT / Routine 07/24/2020 1:35 PM Fever Of Unknown R esults for this QUANT, P CDT [place] procedure are i n the results section. INFECTIOUS Routine 07/24/2020 1:35 PM Fever Of Unknown Resul ts for this MONONUCLEOSIS, RAPID CDT Origin procedu re are in TEST, S/B the results section. CBC WITH Routine 07/24/2020 1:35 PM Fever Of Unknown Resul ts for this DIFFERENTIAL, B CDT Origin procedure ar e in the results section. documented in this encounter Results CBC with Differential, Blood (07/24/2020 1:35 PM CDT) P athologist Signature Hemoglobin 13.3 11.6 - 07/24/2020 [...] 07/24/20 20 1:39 Venous) CDT PM CDT Lidya Hanson M.D. LAB BLOOD ADD-ON Performing Organization Address City/State/ZIP Code Phon e Number [facility]- [address] [place] [address] [facility] [place] [address] System in [place] [address] EBV DNA Detect / Quant, Plasma (07/24/2020 1:35 PM CDT) Patholo gist Method Time Signature EBV DNA Undetected Undetected 07/25/2020 [facility] Detect / IU/mL 9:13 PM CDT Quant, P Comment: Result in log IU/mL is Undetected. EBV DNA is not detected. ----ADDITIONAL INFORMATION---- This laboratory-developed, real-time PCR assay has a quantification range of 100 to 5,000,000 IU/mL (2.00 log IU/mL t o 6.70 log IU/mL). This test was developed using an analyte specific reagent. Its performance characteristics were determined by [facility] in a manner consistent with CLIA requirements. This test has not bee n cleared or approved by the U.S. Food and Drug Administration. Specimen Anatomical Collection Method Collection Time Receive d Time (Source) Location / / Volume Laterality Blood (Blood, 07/24/2020 1:35 PM 07/25/20 20 8:17 Venous) CDT AM CDT Lidya Hanson M.D. LAB MICROBIOLOGY - BLOOD ORD ERAREINIER Performing Organization Address City/State/ZIP Code Phon e Number [facility] [address] [place] [address] [facility] [place] [address] Laboratory Medicine and Pathology [address] [place] Infectious Mononucleosis, Rapid Test (07/24/2020 1:35 PM CDT) Analysis Performed At Patho logist Time Signature Infectious [place] Negative Negative 07/24/2020 [facility] Test, B 1:51 PM CDT Specimen Anatomical Collection Method Collection Time Receive d Time (Source) Location / / Volume Laterality Blood (Blood, 07/24/2020 1:35 PM 07/24/20 20 1:39 Venous) CDT PM CDT Lidya Hanson M.D. LAB MICROBIOLOGY - BLOOD ORD ERABLES Performing Organization Address City/State/ZIP Code Phon e Number [facility]- [address] [place] [address] [facility] [facility] [address] System in [place] [address] documented in this encounter Visit Diagnoses Diagnosis Fever Of Unknown Origin documented in this encounter Additional Health Concerns Assessment Noted Time PHQ-9 Depression Total Score: 1 11/16/2012 11:45 AM CS T documented as of this encounter
--- OUTSIDE RECORDS SUMMARY | 2022-07-09 20:40 | XMS_ITS | Encounter Summary ---
:1990 Author Organization [facility] Address [address] [place] [address] Care Team Providers Name Role Phone Unavailable Primary Care Provider Unavailable Reason for Visit Reason Comments Pre-visit Intake Encounter Details Date Type Department Care Team Description 05/05/2021 Clinical Communication Visit Review in Pr e-visit Intake [place], [place] [address] [place] [address] Social History Tobacco Use Types Packs/Day Years [...] do you attend buddhist or Never 2020 restorationist services? Do you belong to any clubs [...] place to sleep or slept in a correction (including now)? Sex Assigned at Date Recorded Female 04/12/2018 10:21 PM CDT documented as of this encounter Plan of Treatment Not on filedocumented as of this encounter Visit Diagnoses Not on filedocumented in this encounter Additional Health Concerns Assessment Noted Time PHQ-9 Depression Total Score: 1 11/16/2012 11:45 AM CS T documented as of this encounter
--- OUTSIDE RECORDS SUMMARY | 2022-07-09 20:40 | XMS_ITS | Encounter Summary ---
:1990 Author Organization [facility] Address [address] [place] [address] Care Team Providers Name Role Phone Unavailable Primary Care Provider Unavailable Reason for Visit Reason Comments COVID Inquiry Encounter Details Date Type Department Care Team Description 04/28/2021 Clinical Communication Central Appointment RonanedAZALEA dye Inquiry Office in [address] [address] Social History Tobacco Use Types Packs/Day [...] or relatives? How often do you attend oriental orthodox or Never 2020 denominational services? Do you belong to any clubs or No 06/25/2021 organizations such as oriental orthodox groups, unions, fraternal or athletic groups, [...] to sleep or slept in a senior living (including now)? Sex Assigned at Date Recorded Female 04/12/2018 10:21 PM CDT documented as of this encounter Miscellaneous Notes Telephone Encounter - Moihni Singleton - 04/28/2021 2:37 PM CDT What is the purpose of the call?: Requesting Testing Only Request Testing In the past 14 days are any of the following symptoms new to you and not related to an existing health condition?: New cough, Fever*, New shortness of breath, New sore throat, New diarrhea, New nausea,New chills, New myalgias (muscle aches), New headache Because of symptoms, transfer patient to: : [facility] Nurse Line (End Screening) Symptom Onset Date of symptom onset: 04/24/21 Testing Recommendation Endpoint Is testing recommended? : Recommended to test Plan: Endpoint recommendation: Transferred to Nursing/COVID Line/Care Team *Reminder if sending patient for testing in [facility] or [facility], route encounter to the correct testing pool. documented in this encounter Plan of Treatment Not on filedocumented as of this encounter Visit Diagnoses Not on filedocumented in this encounter Additional Health Concerns Assessment Noted Time PHQ-9 Depression Total Score: 1 11/16/2012 11:45 AM CS T documented as of this encounter
--- OUTSIDE RECORDS SUMMARY | 2022-07-09 20:40 | XMS_ITS | Encounter Summary ---
:1990 Author Organization [facility] Address [address] [place] [address] Care Team Providers Name Role Phone Unavailable Primary Care Provider Unavailable Reason for Referral Outpatient (Routine) - Closed Specialty Diagnoses / Procedures Referred By Contact Refer red To Contact Obstetrics and Diagnoses Endometriosis Aracely Shah, [facility] Gynecology FINANCIAL ADVISOR TRAINEE, C.N.P. [address] [place] [address] Referral ID Status Reason Start Date Expiration Date Visits Requ ested Visits Authorized [id number] Closed 02/12/2021 02/12/2022 1 1 Reason for Visit Reason Comments Abnormal Uterine Bleeding dub Appointment Request (Routine) - Closed Specialty Diagnoses / Procedures Referred By Contact Saira story To Contact Obstetrics and Gynecology Referral ID Status Reason Start Date Expiration Date Visits Requ ested Visits Authorized [id number] Closed 01/08/2021 01/08/2022 1 1 Encounter Details Date Type Department Care Team Description 02/12/2021 Office Visit Department of Aracely Shah (Primary Dx); Obstetrics and RICHIE Esparza, C.N.P. History Of Uterine Scar From Previous Zelaya rgery; Gynecology in [address] [place], [place] [address] [address] [place], [place] [phone] [address] (Work) [phone] Social History Tobacco Use Types Packs/Day Years [...] or relatives? How often do you attend spiritism or Never 2020 yarsanism services? Do you belong to any clubs or No 06/25/2021 organizations such as spiritism groups, unions, fraternal or athletic groups, or [...] Sign Reading Time Taken Comments Blood Pressure 98/62 02/12/2021 2:16 PM CDT Pulse - - Temperature - - Respiratory Rate - - Oxygen Saturation - - Inhaled Oxygen Concentration - - Weight 108 kg (237 lb 15.8 oz) 02/12/2021 2:16 PM CDT Height - - Body Mass Index 48.62 04/14/2018 11:36 AM CDT documented in this encounter Progress Notes Aracely Shah, RICHIE, C.N.P. - 02/12/2021 2:30 PM CDT SUBJECTIVE CHIEF COMPLAINT / REASON FOR VISIT Chief Complaint Patient presents with ??? Abnormal Uterine Bleeding dub HISTORY OF PRESENT ILLNESS Barbra is a 30 y.o. . Patient's last menstrual period was 01/22/2021 (exact date). She presents with concerns surrounding Abnormal Uterine Bleeding (dub). She has history of Caesarean section x5with bilateral salpingectomy at the time of her 5th and final on 11/09/2018. She does havehistory of endometriosis as proven by excision of a mass within the left lower abdominal wall on 05/15/2020, and pathology returning indicating endometriosis. Per the operative report, The mass was dissected from surrounding tissues using a combination of blunt dissection and electrocautery, and was then sent to pathology for further evaluation. The mass was noted to involve the deep fascia.? Also noted with her 5th section was scarring of the uterus to the abdominal wall as noted in the operative report dated 11/09/2018: There was significant scarring of the uterus to the anterior abdominal wall. This was taken down in layers with Bovie electrocautery. The uterus was then exteriorized and wrapped in a moist lap. The hysterotomy was closed with a running locked suture of 0 Monocryl and a second horizontal imbricating suture of 0 Monocryl. She was last seen in the department of Obstetrics and Gynecology by Dr. Hanson on 07/23/2020. Dr. Hanson recommended an ultrasound and discuss the need for ovarian suppression to prevent recurrence of her endometriosis. She discussed Depo Lupron to induce medical menopause, followed by suppression with OCPs or Depo-Provera. Follow-up never occurred. Patient is here today with primary concerns surrounding pain that she rates a 10/10. States that sheuses a heating pad to her low abdominal area, primarily on the left side, on a daily basis. There are many time she has had to miss work due to her pain. She notes that her pain is most problematic when she has her period, but that there is always pain. States that when she does have her. Her bleedingis very heavy, requiring her to wear a diaper, which requires changing every 1-2 hours. She also states that she feels as if the mass that was removed previously has returned. States that she can feel it when she pushes on her abdomen. She is interested in discussing management options to improve her pain, as well as her heavy and painful menstrual cycles. REVIEW OF SYSTEMS Gastrointestinal: Positive for abdominal (belly) pain or cramping. Genitourinary: Positive for abnormal vaginal bleeding and menses change or abnormal. The following systems were negative: Constitutional, Skin, Eyes, ENT, CV, Respiratory, Hematologic, Musculoskeletal, Neuro, Psych The patient's allergies, current medications, problem list, social history and family history were reviewed and updated as appropriate. OBJECTIVE BP 98/62 Wt 108 kg LMP 01/22/2021 (Exact Date) BMI 48.62 kg/m?? PHYSICAL EXAM General: She is a well-appearing female, in no acute distress. ASSESSMENT / PLAN #1 Endometriosis Overview: Mass within anterior abdominal wall involving the fascia excised on 05/15/2020. Surgical consultationordered and scheduled. Orders: - Obstetrics and Gynecology office visit (clinic); Future; Expected date: 02/12/2021 #2 History Of Uterine Scar From Previous Surgery Overview: Previous section x5. #3 Menorrhagia We did spend time discussing options for management including Depo Lupron, Depo- Provera, OCPs, Orilissa, or surgical consultation. She is most interested in proceeding with surgical consultation for consideration of possible hysterectomy at this point. She will schedule at her convenience. All questions have been answered and those present are in agreement with this plan. Aracely Shah APRN, C.N.P. Patient Education Ready to learn, no apparent learning barriers were identified; learning preferences include listening. Explained diagnosis and treatment plan; patient expressed understanding of the content. documented in this encounter Plan of Treatment Scheduled Referrals Name Type Priority Associated Diagnoses [facility] and Outpatient Referral Routine Endometriosis Expec aureliano: Gynecology office 02/12/2021 visit (clinic) (Approximate) , Expires: 02/13/2024 documented as of this encounter Visit Diagnoses Diagnosis Endometriosis - Primary History Of Uterine Scar From Previous Zelaya rgery Menorrhagia documented in this encounter Additional Health Concerns Assessment Noted Time PHQ-9 Depression Total Score: 1 11/16/2012 11:45 AM CS T documented as of this encounter
--- OUTSIDE RECORDS SUMMARY | 2022-07-09 20:40 | XMS_ITS | Encounter Summary ---
:1990 Author Organization [facility] Address [address] [place] [address] Care Team Providers Name Role Phone Unavailable Primary Care Provider Unavailable Reason for Visit Reason Comments Injections Outpatient (Routine) - Closed Specialty Diagnoses / Procedures Referred By Contact Refer red To Contact Diagnoses Endometriosis Link Ascencio M.D. [facility] Procedures Injection Visit - Depo-Lupron [address] [place] [address] Referral ID Status Reason Start Date Expiration Date Visits Requ ested Visits Authorized [id number] Closed 02/18/2021 02/18/2022 1 1 Encounter Details Date Type Department Care Team Description 02/25/2021 Procedure visit Department of Obstetrics Link Ascencio M.D. [address] [place] [address] Endometriosis and Gynecology in Fabienne Smith L.P.N. [address] [place] [phone] [place], [place] [address] [place] [address] Social History Tobacco Use Types Packs/Day Years [...] or relatives? How often do you attend latter day or Never 2020 congregational services? Do you belong to any clubs or No 06/25/2021 organizations such as latter day groups, unions, fraternal or athletic groups, or [...] place to sleep or slept in a assisted (including now)? Sex Assigned at Date Recorded Female 04/12/2018 10:21 PM CDT documented as of this encounter Last Filed Vital Signs Vital Sign Reading Time Taken Comments Blood Pressure 108/70 02/25/2021 2:42 PM CDT Pulse - - Temperature - - Respiratory Rate - - Oxygen Saturation - - Inhaled Oxygen Concentration - - Weight 109 kg (240 lb 13.6 oz) 02/25/2021 2:42 PM CDT Height - - Body Mass Index 47.91 02/17/2021 2:19 PM CDT documented in this encounter Progress Notes Fabienne Smith, L.P.N. - 02/25/2021 2:30 PM CDT Patient here for her lupron injection. Patient tolerated the injection well. documented in this encounter Plan of Treatment Not on filedocumented as of this encounter Visit Diagnoses Diagnosis Endometriosis documented in this encounter Administered Medications Inactive Administered Medications - up to 3 most recent administrations Medication Order MAR Action Action Date Dose Rate Site leuprolide (3 month) Given 02/25/2021 2:44 PM 11.25 mg Left Ventrogluteal injection 11.25 mg CDT (LUPRON DEPOT) 11.25 mg, intramuscular, Once, On Wed02/17/21 at 1445, For 1 dose documented in this encounter Additional Health Concerns Assessment Noted Time PHQ-9 Depression Total Score: 1 11/16/2012 11:45 AM CS T documented as of this encounter
--- OUTSIDE RECORDS SUMMARY | 2022-07-09 20:40 | XMS_ITS | Encounter Summary ---
:1990 Author Organization [facility] Address [address] [place] [address] Care Team Providers Name Role Phone Unavailable Primary Care Provider Unavailable Reason for Visit Reason Comments COVID Nurse Line Encounter Details Date Type Department Care Team Description 04/28/2021 Clinical Communication Division of Matthew Causey Nurse Line [facility], M.B.AWander, Medicine, Marcos Alexis [place], in [phone] [place], [place] (Work) [address] [place] [address] Social History Tobacco Use Types Packs/Day Years [...] or relatives? How often do you attend tenriism or Never 2020 mandaeism services? Do you belong to any clubs or No 06/25/2021 organizations such as tenriism groups, unions, fraternal or athletic groups, or [...] place to sleep or slept in a [facility]p (including now)? Sex Assigned at Date Recorded Female 04/12/2018 10:21 PM CDT documented as of this encounter Miscellaneous Notes Telephone Encounter - Matthew Causey R.N. - 04/28/2021 3:28 PM CDT COVID-19 Nurse Line Screening ASSESSMENT Region Select appropriate region: : [place] Age Pathway Select approprite pathway: : Adult Have you had close contact* with a person who has a LABORATORY CONFIRMED case of COVID-19 in the past 14 days?: No (Continue Screening) In the last 48 hours, have you had a fever* OR symptoms that are unrelated to a preexisting illness?: New headache, Fever, New nausea, New diarrhea, New cough Have you received a COVID-19 vaccine in the last 72 hours? : No vaccine received (Continue Screening) Do you have any of the following urgent symptoms?: No urgent symptoms noted (Continue Screening) Have you tested positive for COVID-19 in the last 45 days?: No (Continue Screening) Are ALL the following criteria met: age between 18 to 75 yrs, main symptom is a sore throat with duration of 24 hrs to 7 days, onset of sore throat not associated with new upper respiratory symptoms*? : No, COVID testing is recommended (End Screening) Symptom Onset Date of symptom onset: 04/24/21 Testing Recommendation Endpoint Is testing recommended? : Recommended to test PLAN Endpoint recommendation: Screening positive, testing indicated, advised to be swabbed for COVID-19 Only , [facility] [facility] [facility] You must schedule an appointment for testing at this location. ??Please call [phone] during the hours of 7am to 6 pm (M-F) or 9 am to 4 pm (Sat and Sun) for an appointment time. You can also schedule via your Patient Online Services account. and Please avoid using public transportation per CDC recommendation. If you do not have personal transportation please self-quarantine until a personal transportation option is available. Standard Care Points -Get a COVID -19 vaccine as soon as you can if not fully vaccinated. -Wash hands frequently with soap and water, use hand forestry consultant if soap and water aren't available. -Wear a mask over your nose and mouth to help protect yourself and others if not fully vaccinated and having no symptoms -Stay 6 feet between yourself and others who don't live with you. -Avoid crowds and poorly ventilated indoor spaces. -Seek emergent care if any of the following occur Trouble breathing Bluish lips or face Persistent pain or pressure in the chest New confusion or inability to rouse. -Notify your regular care provider of any new or worsening symptoms. Symptomatic Carepoints: Stay home and separate yourself from others and stay in a specific sick room if able. Avoid sharing personal or household items. Rest. Hydrate. Take Acetaminophen/Ibuprofen asneeded to control fever and muscles aches. Use over the counter medications as needed for other symptoms. If you have received a negative COVID-19 test result and continue to have new or worsening symptoms after 72 hours please call the COVID Nurse Line to assess if you need repeat testing or reach out to your Primary Care Provider for guidance. Education: Patient/caregiver able to teach back Patient agreeable to plan of care: Yes The following references were used: [facility] novel coronavirus (COVID- 19) resources Nursing judgement documented in this encounter Plan of Treatment Not on filedocumented as of this encounter Visit Diagnoses Not on filedocumented in this encounter Additional Health Concerns Assessment Noted Time PHQ-9 Depression Total Score: 1 11/16/2012 11:45 AM CS T documented as of this encounter
--- OUTSIDE RECORDS SUMMARY | 2022-07-09 20:40 | XMS_ITS | Encounter Summary ---
:1990 Author Organization [facility] Address [address] [place] [address] Care Team Providers Name Role Phone Unavailable Primary Care Provider Unavailable Reason for Referral Physical Therapy (Routine) - Closed Specialty Diagnoses / Procedures Referred By Contact Refer red To Contact Diagnoses Pain Pelvic Female Nate Barrios M.D. [facility] Procedures PMR Pelvic floor & bowel/bladder rehab [address] [place], [place] [phone] Referral ID Status Reason Start Date Expiration Date Visits Requ ested Visits Authorized [id number] Closed 03/05/2021 03/05/2022 1 1 Specialty Diagnoses / Procedures Referred By Contact Refer red To Contact [facility] [place] [facility] [address] [place] [address] Referral ID Status Reason Start Date Expiration Date Visits Requ ested Visits Authorized MRI/CAT/PET Scan (Routine) - Closed Specialty Diagnoses / Procedures Referred By Contact Refer red To Contact Radiology Diagnoses Pain Pelvic Female aNte Barrios M.D. [facility] Procedures MR Gynecologic Pelvis without and with IV Contrast [address] [place], [place] [phone] Referral ID Status Reason Start Date Expiration Date Visits Requ ested Visits Authorized [id number] Closed 03/05/2021 03/05/2022 1 1 Reason for Visit Reason Comments [facility]age Encounter Details Date Type Department Care Team Description 02/25/2021 Clinical Communication [facility] and Provider Gynecology in [place], [place] [address] [place] [address] Social History Tobacco Use Types Packs/Day Years [...] you attend latter day or Never 2020 mormon services? Do you belong to any clubs [...] this encounter Miscellaneous Notes Telephone Encounter - Mariaa Garcia - 05/05/2021 9:10 AM CDT 05-05-2021: Spoke with our [facility] medical receptionist biller. They will put in a reminder to have patient complete the CPP Packet when she checks in for her appt on 05-06-2021. Telephone Encounter - Mariaa Garcia - 05/01/2021 10:12 AM CDT 05-01-2021: Portal to patient. Appt 05-06-2021 Telephone Encounter - Sabina Zhou - 04/25/2021 10:30 AM CDT 04-25-2021: E-mail to patient NEED: CPP Packet Appt 05-06 Telephone Encounter - Mariaa Garcia - 04/07/2021 4:14 PM CDT 04-07-2021: Portal unread. E-mail to patient. NEED: CPP Packet for May 06 appts! Telephone Encounter - Mariaa Garcia - 04/03/2021 9:38 AM CDT 04-03-2021: Portal to patient. NEED: CPP Packet Telephone Encounter - Sabina Zhou - 03/06/2021 7:59 AM CDT 03-06-2021: CPP Packet mailed to the patient at her home address. Appt 05-06-2021. Telephone Encounter - Arcelia Hong - 03/05/2021 11:02 AM CDT Patient has been scheduled for endo clinic with MRI, CPM and PMR coordinated. She is awareof appts. Telephone Encounter - Nate Barrios M.D. - 03/04/2021 5:09 PM CDT Endo clinic. MRI, [employer] [employer], Pain group, PFPT, and consult with me. Thanks. Telephone Encounter - Arcelia Hong - 02/25/2021 4:26 PM CDT Quick Summary Obstetrics and Gynecology - Gynecology consult (clinic) for Barbra Fregoso [[phone]] (Routine) Request Summary [[id number]] Procedure: Obstetrics and Gynecology - Gynecology consult (clinic) Status: Financial Review Pending (Deferred until 03/11/2021) Requested appt date: 02/21/2021 (Before surgery) (Approximate) Authorizing: Connie Le M.D. in [facility] OBG FBAL Referral: [id number] (Authorized) Responsible dept: T OB SEROLOGY TECHNICIAN TAMI Expires: 02/22/2024 Priority: Routine Diagnosis: Endometriosis [N80.9] Request Details Triage Status: ?? Triage Priority: Routine Triage Reject Reason: ?? Triage Comments: ?? Task Type: ?? Task Status: ?? Task Due Date: ?? Task Comments: ?? Notes [place] [id number], ok to schedule Order Details Procedure: Obstetrics and Gynecology - Gynecology consult (clinic) [[id number]] Proc category: Outpatient Referral Orderables Class: Internal Referral Standing status: Future Expires: 02/22/2024 Standing interval: ?? Enc department: [facility] Ob Fbal Enc provider: Connie Le M.D. Order status: ?? Order date: 02/21/2021 Order user: Tomasa Wu, RWanderNWander Ordering provider: CONNIE LE Expected Date: First Available [1007] Auth provider: CONNIE LE Expected Completion Date: 02/21/2021 ? Ordering Comment: ? Order Panel: [facility] OBSTETRICS AND GYNECOLOGY - GYNECOLOGY CONSULT (CLINIC) PANEL [[id number]] Preference List: [facility] INTERMODAL CUSTOMER SERVICE REFERRALS [[id number]] Specimen Type: ?? Specimen Source: ?? ECL Reason for Referral: ?? Order Specific Questions Region: [place] [[id number]] Indication Other Specify: Endometriosis Clinical question: Endometriosis with likely significant scar tissue, desires hysterectomy and ablation of endometriosis documented in this encounter Plan of Treatment Scheduled Referrals Name Type Priority Associated Order Schedule Diagnoses Pain Medicine - Outpatient Referral Routine Pain Pelvic Female Expected: Group Chronic Pain Management Session (Approxim ate), (Clinic) Expires: 03/05/2024 documented as of this encounter Results MR Gynecologic Pelvis without and with IV Contrast (05/05/2021 4:17 PM CDT) Anatomical Region Laterality Modality Pelvis, Abdominal RST LOS, Abdominal ARZ LOS, Abdominal N/A Magnetic Resonance FLA LOS, Musculoskeletal ARZ LOS Specimen (Source) Anatomical Collection Method Collection Time Re ceived Time Location / / Volume Laterality 05/05/2021 4:26 PM CDT Impressions 05/05/2021 5:11 PM CDT 1. T1 bright foci with some T2 dark thickening and heterogeneous enhancement along the scar, likely related to endometriosis implants. 2. Discrete enhancing tissue in the subc utaneous fat of the left lower abdominal wall with imaging characteristics consis tent with an area of abdominal wall endometriosis. 3. Follicles in normal-sized ovaries dm aterally without evidence of an endometrioma in either side. 4. No imaging evidence of deep infiltrat ing endometriosis or bowel invasive disease. Narrative 05/05/2021 5:11 PM CDT EXAM: ??MR GYNECOLOGIC PELVIS WITHOUT AND WITH IV CONTRAST COMPARISON: ??CT abdomen and pelvis 09/2017; pelvic ultrasound 07/04/2020 FINDINGS: ?? The uterus is anteverted in orientation. Changes related to scar. Due to motion artifact of the junctional zon e is suboptimally visualized, but likely slightly irregular and thickened in the region of the fundus, suspicious for adenomyosis. The uterus measures 9.3 x 4 .5 x 6.4 cm. There are some foci of T1 bright materia l adjacent to the scar within the uterus with associated enhancement, suspicious for implants related to endometriosis (series 12, image 29-30; s eries 14, image 27-28). Postoperative changes and thickening adj acent anterior abdominal wall where the uterine fundus closely approximates the peritoneum and right rectus abdominis musculature. Enhancing discrete rounded focus of heterogeneous soft tissue with some patchy areas of T1 bright signal in the subcutaneous fat of the left lower abdominal wall with some associated soft tissue thickening that extends towards the midline scar. This focus measures 1. 7 cm in greatest dimension and has features consistent with abdominal wall endometriosis. This may extend towards the midline with an associated 2nd thick ened focus over the midline abdominal scar (series 14, image 16-18; series 8, image 5; series 29, image 9-14). Follicles in normal-sized normally posit ioned ovaries bilaterally without evidence of an endometrioma or surface i mplants on either one. The left ovary is closely apposed to the sigmoid colon wit h some intervening soft tissue thickening, but no evidence of bowel inv asive disease (series 9, image 30; series 6, image 12 Both round ligaments and uterosacral lig aments are slightly symmetrically thickened without nodularity. No lymphadenopathy. No free fluid in the pelvis. The appendix is normal. Procedure Note Stacie Arnold M.D. - 05/05/2021Formatt ing of this note might be different from the original. EXAM: MR GYNECOLOGIC PELVIS WITHOUT AND WITH IV CONTRAST COMPARISON: CT abdomen and pelvis 2017; pelvic ultrasound 07/04/2020 FINDINGS: The uterus is anteverted in orientation. Changes related to scar. Due to motion artifact of the junctional zon e is suboptimally visualized, but likely slightly irregular and thickened in the region of the fundus, suspicious for adenomyosis. The uterus measures 9.3 x 4 .5 x 6.4 cm. There are some foci of T1 bright materia l adjacent to the scar within the uterus with associated enhancement, suspicious for implants related to endometriosis (series 12, image 29-30; s eries 14, image 27-28). Postoperative changes and thickening adj acent anterior abdominal wall where the uterine fundus closely approximates the peritoneum and right rectus abdominis musculature. Enhancing discrete rounded focus of heterogeneous soft tissue with some patchy areas of T1 bright signal in the subcutaneous fat of the left lower abdominal wall with some associated soft tissue thickening that extends towards the midline scar. This focus measures 1. 7 cm in greatest dimension and has features consistent with abdominal wall endometriosis. This may extend towards the midline with an associated 2nd thick ened focus over the midline abdominal scar (series 14, image 16-18; series 8, image 5; series 29, image 9-14). Follicles in normal-sized normally posit ioned ovaries bilaterally without evidence of an endometrioma or surface i mplants on either one. The left ovary is closely apposed to the sigmoid colon wit h some intervening soft tissue thickening, but no evidence of bowel inv asive disease (series 9, image 30; series 6, image 12 Both round ligaments and uterosacral lig aments are slightly symmetrically thickened without nodularity. No lymphadenopathy. No free fluid in the pelvis. The appendix is normal. IMPRESSION: 1. T1 bright foci with some T2 dark thic kening and heterogeneous enhancement along the scar, likely related to endometriosis implants. 2. Discrete enhancing tissue in the subc utaneous fat of the left lower abdominal wall with imaging characteristics consis tent with an area of abdominal wall endometriosis. 3. Follicles in normal-sized ovaries dm aterally without evidence of an endometrioma in either side. 4. No imaging evidence of deep infiltrat ing endometriosis or bowel invasive disease. Nate Barrios M.D. [facility] PROCEDURES documented in this encounter Visit Diagnoses Diagnosis Pain Pelvic Female - Primary Pain Pelvic Female documented in this encounter Additional Health Concerns Infection Onset Date Last Indicated Resolved Time COVID19 Pending 04/29/2021 04/30/2021 04/30/2021 11:53 PM CDT Assessment Noted Time PHQ-9 Depression Total Score: 1 11/16/2012 11:45 AM CS T documented as of this encounter
--- OUTSIDE RECORDS SUMMARY | 2022-07-09 20:40 | XMS_ITS | Encounter Summary ---
:1990 Author Organization [facility] Address [address] [place] [address] Care Team Providers Name Role Phone Unavailable Primary Care Provider Unavailable Reason for Referral MRI/CAT/PET Scan (Routine) - Closed Specialty Diagnoses / Procedures Referred By Contact Refer red To Contact Radiology Diagnoses Pain Pelvic Female Nate Barrios M.D. [facility] Procedures MR Gynecologic Pelvis without and with IV Contrast [address] [place] [phone] Referral ID Status Reason Start Date Expiration Date Visits Requ ested Visits Authorized [id number] Closed 03/05/2021 03/05/2022 1 1 Reason for Visit MRI/CAT/PET Scan (Routine) - Closed Specialty Diagnoses / Procedures Referred By Contact Refer red To Contact Radiology Diagnoses Pain Pelvic Female Nate Barrios M.D. [facility] Procedures MR Gynecologic Pelvis without and with IV Contrast [address] [place] [phone] Referral ID Status Reason Start Date Expiration Date Visits Requ ested Visits Authorized [id number] Closed 03/05/2021 03/05/2022 1 1 Encounter Details Date Type Department Care Team Description 05/05/2021 Hospital Encounter Department of Nate Barrios Pain Pelvic Female Radiology, Krishan Blue M.D. [facility] [place] [address] [place] [address] [place] [address] [place], [place] [phone] (Work) [phone] Social History Tobacco Use Types Packs/Day Years [...] or relatives? How often do you attend orthodoxy or Never 2020 denominational services? Do you belong to any clubs or No 06/25/2021 organizations such as orthodoxy groups, unions, fraternal or athletic groups, or [...] at bedtime. documented as of this encounter Nursing Notes Netta Enciso R.N. - 05/05/2021 2:45 PM CDT Glucagon Administration Screening: Does patient have an allergy to glucagon or lactose (e.g. hives, difficulty breathing, anaphylaxis, necrolytic migratory erythema)? Note: nausea vomiting, bloating, and diarrhea are common and expected adverse effects of glucagon and/or lactose intolerance. NO If no???continue. Does patient have a history of insulinoma or phenochromocytoma? NO If no???continue. If yes, discusswith Radiologist. Does patient have diabetes? NO If no.. continue.. If yes??? initiate nurse initiated protocol to order POC blood glucose . If yes and insulin dependent, provide patient with Glucagon Injections if you Have Diabetes card. What is patient's glucose? Not diabetic - less than 70 treat f using Hypoglycemia Nurse Initiated Protocol - between 70 and 300 administer medication as ordered. - greater than 300 notify radiologist and do not administer medication. Is patient safe to receive Glucagon YES If yes.. Administer Glucagon as outlined in order. Does the patient need to remain NPO following scan for additional appointments today? NO Gel Administration Screening: * If also ordered with Glucagon, perform that screening as well. If not ordered with Glucagon, verify with Technologist if this may have been an oversight and Glucagon is wanted. Does patient have an allergy or sensitivity to Lidocaine or other amide-type (Prilocaine, Mepivacaine, Bupivacaine, Levobupivacaine, Articaine, Ropivacaine) local anesthetics? No If no... continue Does patient have a latex allergy? No If no, administer as ordered and outlined in medication reference document. documented in this encounter Plan of Treatment Not on filedocumented as of this encounter Procedures Procedure Name Priority Date/Time Associated Comments Diagnosis MR GYNECOLOGIC RAD - Routine 05/05/2021 4:17 Pain Pelvic Results f or this PELVIS WITHOUT AND (most inpatients PM CDT Female proce dure are in WITH IV CONTRAST and all the results outpatients) section. documented in this encounter Results MR Gynecologic Pelvis without [...] ing endometriosis or bowel invasive disease. Nate [facility] MRI PROCEDURES documented in this encounter Visit Diagnoses Diagnosis Pain Pelvic Female documented in this encounter Administered Medications Inactive Administered Medications - up to 3 most recent administrations Medication Order MAR Action Action Date Dose Rate Site gadobutrol injection 0.01-30 mL Given 05/05/2021 3:59 PM CDT 11 mL (GADAVIST) 0.01-30 mL, intravenous, Once in imaging, contrast, Starting on Wed05/05/21 at 1513, For 1 dose, Imaging Protocol Orders, Dose per Radiant Medication Guidelines Intrathecal doses greater than 0.25 mL not recommended. glucagon injection 0.5-1 mg Given 05/05/2021 3:13 PM CDT 1 mg Right Upper Arm (GlucaGen) (Back) 0.5-1 mg, subcutaneous, Once, On Wed05/05/21 at 1515, For 1 dose, Imaging Protocol Orders sodium chloride (PF) 0.9 % injection 1-1 00 mL Given 05/05/2021 4:00 PM CDT 40 mL 1-100 mL, intravenous, Once, On Wed05/05/21 at 1515, For 1 dose, Imaging Protocol Orders ultrasound gel topical gel 60-180 mL Given 05/05/2021 3:14 PM CDT 60 mL 60-180 mL, vaginal, Once, On Wed05/05/21 at 1515, For 1 dose, Imaging Protocol Orders, Dose per Radiant Medication Guidelines documented in this encounter Additional Health Concerns Assessment Noted Time PHQ-9 Depression Total Score: 1 11/16/2012 11:45 AM CS T documented as of this encounter
--- OUTSIDE RECORDS SUMMARY | 2022-07-09 20:40 | XMS_ITS | Encounter Summary ---
:1990 Author Organization [facility] Address [address] [place] [address] Care Team Providers Name Role Phone Unavailable Primary Care Provider Unavailable Encounter Details Date Type Department Care Team Description 06/24/2020 Orders Only Department of Obstetrics and Lidya Hanson Gynecology in [place] [address] [place], [place] [phone] (Wo rk) Social History Tobacco Use Types [...] or relatives? How often do you attend confucianist or Never 2020 confucianist services? Do you belong to any clubs or No 06/25/2021 organizations such as confucianist groups, unions, fraternal or athletic groups, or [...]
--- OUTSIDE RECORDS SUMMARY | 2022-07-09 20:40 | XMS_ITS | Encounter Summary ---
:1990 Author Organization [facility] Address [address] [place] [address] Care Team Providers Name Role Phone Unavailable Primary Care Provider Unavailable Encounter Details Date Type Department Care Team Description 06/24/2020 Clinical Communication Department of [place] Obstetrics and [place] Gynecology in [address] [address] [place] [address] [facility] [phone] Social History Tobacco Use Types Packs/Day Years [...] do you attend buddhist or Never 2020 yarsani services? Do you belong to any clubs [...] this encounter Miscellaneous Notes Telephone Encounter - Aysha Coffman - 06/24/2020 4:00 PM CDT See note dated 06/22 Telephone Encounter - Valarie Navas - 06/24/2020 3:56 PM CDT Patient returning call, documented in this encounter Plan of Treatment Not on filedocumented as of this encounter Visit Diagnoses Not on filedocumented in this encounter Additional Health Concerns Assessment Noted Time PHQ-9 Depression Total Score: 1 11/16/2012 11:45 AM CS T documented as of this encounter
--- OUTSIDE RECORDS SUMMARY | 2022-07-09 20:40 | XMS_ITS | Encounter Summary ---
:1990 Author Organization [facility] Address [address] [place] [address] Care Team Providers Name Role Phone Unavailable Primary Care Provider Unavailable Reason for Referral Outpatient (Routine) - Closed Specialty Diagnoses / Procedures Referred By Contact Refer red To Contact Diagnoses Dysmenorrhea Lidya Hanson [facility] [place] [facility] Procedures US Pelvis Transvaginal and Transabdominal M.D. [address] [place] [phone] Referral ID Status Reason Start Date Expiration Date Visits Requ ested Visits Authorized [id number] Closed 06/18/2020 06/18/2021 1 1 Reason for Visit Outpatient (Routine) - Closed Specialty Diagnoses / Procedures Referred By Contact Refer red To Contact Diagnoses Yolandaenorrhea Lidya Hanson [facility] [place] [facility] Procedures US Pelvis Transvaginal and Transabdominal M.D. [address] [place] [phone] Referral ID Status Reason Start Date Expiration Date Visits Requ ested Visits Authorized [id number] Closed 06/18/2020 06/18/2021 1 1 Encounter Details Date Type Department Care Team Description 07/04/2020 Hospital Encounter Department of Radiology [place] [address] [facility] [address] [place] [address] [place] [phone] Social History Tobacco Use Types Packs/Day [...] or relatives? How often do you attend mandaeism or Never 2020 gnosticism services? Do you belong to any clubs or No 06/25/2021 organizations such as mandaeism groups, unions, fraternal or athletic groups, or [...] cholestyramine (QUESTRAN) Take 1 packet by 0 0 12/2019 4 gram packet mouth as [...] Name Priority Date/Time Associated Comments Diagnosis US PELVIS RAD - Routine 07/04/2020 4:47 Dysmenorrhea Results for TRANSVAGINAL AND (most inpatients PM CDT this pr ocedure TRANSABDOMINAL and all are in the outpatients) results section. documented in this encounter Results US Pelvis Transvaginal and Transabdominal (07/04/2020 4:47 PM CDT) Anatomical Region Laterality Modality Pelvis, Ultrasound RST LOS, Ultrasound ARZ LOS, Ultrasound F LA N/A Ultrasound LOS Specimen (Source) Anatomical Collection Method Collection Time Re ceived Time Location / / Volume Laterality 07/04/2020 4:48 PM CDT Impressions 07/04/2020 4:54 PM CDT 1. Endometrial thickness within physiologic limits for age. 2. Prior section. Narrative 07/04/2020 4:54 PM CDT EXAM: ??US PELVIS TRANSVAGINAL AND TRANSABDOMINAL COMPARISON: ??11/25/2017 TECHNIQUE: ??Transabdominal and transvag inal. FINDINGS: ?? Uterus: 4.6 x 5.2 ??x 8.8 cm. ??Antevert ed Myometrium: Presumed scar. Endometrium: Normal. Thickness: 10 mm ?? Right ovary: Only seen transabdominally. ??Ovarian volume: Visually normal. Left ovary: Normal. ??Ovarian volume: 19 ml. Normal Doppler characteristics of the ovary. Intraperitoneal Fluid: Trivial, likely p hysiologic. Transvaginal exam performed to better vi sualize the adnexa. Procedure Note Jaison Roman M.D. - 07/04/2020Formatt ing of this note might be different from the original. EXAM: US PELVIS TRANSVAGINAL AND TRANSAB DOMINAL COMPARISON: 11/25/2017 TECHNIQUE: Transabdominal and transvagin al. FINDINGS: Uterus: 4.6 x 5.2 x 8.8 cm. Anteverted Myometrium: Presumed scar. Endometrium: Normal. Thickness: 10 mm Right ovary: Only seen transabdominally. Ovarian volume: Visually normal. Left ovary: Normal. Ovarian volume: 19 m l. Normal Doppler characteristics of the ovary. Intraperitoneal Fluid: Trivial, likely p hysiologic. Transvaginal exam performed to better vi sualize the adnexa. IMPRESSION: 1. Endometrial thickness within physiolo gic limits for age. 2. Prior section. Lidya EL[facility]ETH US PROCEDURES documented in this encounter Visit Diagnoses Diagnosis Dysmenorrhea documented in this encounter Additional Health Concerns Assessment Noted Time PHQ-9 Depression Total Score: 1 11/16/2012 11:45 AM CS T documented as of this encounter
--- OUTSIDE RECORDS SUMMARY | 2022-07-09 20:41 | XMS_ITS | Encounter Summary ---
:[address] [facility] Address [address] [place] [address] Care Team Providers Name Role Phone Unavailable Primary Care Provider Unavailable Reason for Visit Reason Comments Conjunctivitis X 6 days Headache Encounter Details Date Type Department Care Team Description 05/22/2019 Office Visit Urgent Care in [place] Conjuncti vitis (Primary [place], [place] M.D. Dx) [address] [place] [phone] Social History Tobacco Use Types Packs/Day Years [...] do you attend druze or Never 2020 advent services? Do you belong to any clubs [...] place to sleep or slept in a nursing home (including now)? Sex Assigned at Date Recorded Female 04/12/2018 10:21 PM CDT documented as of this encounter Last Filed Vital Signs Vital Sign Reading Time Taken Comments Blood Pressure 123/75 05/22/2019 10:03 AM CDT Pulse 80 05/22/2019 10:03 AM CDT Temperature 36.4 ??C (97.5 ??F) 05/22/2019 10:03 AM CDT Respiratory Rate - - Oxygen Saturation 97% 05/22/2019 10:03 AM CDT Inhaled Oxygen Concentration - - Weight 107 kg (236 lb 15.9 oz) 05/22/2019 10:03 AM CDT Height - - Body Mass Index 48.42 04/14/2018 11:36 AM CDT documented in this encounter Progress Notes Amilcar Wylie M.D. - 05/22/2019 10:00 AM CDT CHIEF COMPLAINT/REASON FOR VISIT Barbra Medina is a 28 y.o. female that presents with irritated reddened eyes for several days. Current Outpatient Medications: ??? albuterol (PROVENTIL HFA,VENTOLIN HFA) 90 mcg/actuation inhaler, Inhale 1-2 puffs., Disp: , Rfl: ??? aspirin [address] tablet, Take by mouth., Disp: , Rfl: ??? cetirizine (ZyrTEC) 10 mg tablet, Take 1 tablet (10 mg total) by mouth daily., Disp: 30 tablet, Rfl: 11 ??? cholecalciferol (VITAMIN D3) 400 Unit tablet, Take 2 tablets (800 Units total) by mouth daily., Disp: 60 tablet, Rfl: 8 ??? omeprazole (PriLOSEC) [address] capsule, Take 1 capsule (20 mg total) by mouth daily., Disp: 30 capsule, Rfl: 9 ??? ondansetron (ZOFRAN) 4 mg tablet, , Disp: , Rfl: 0 ??? sertraline (ZOLOFT) 50 mg tablet, Take 1 tablet (50 mg total) by mouth daily., Disp: 30 tablet, Rfl: 11 ??? SUMAtriptan (IMITREX) 50 mg tablet, daily., Disp: , Rfl: ??? venlafaxine (EFFEXOR) 75 mg tablet, Take 75 mg by mouth daily., Disp: , Rfl: ??? erythromycin (ROMYCIN) 5 mg/gram (0.5 %) ophthalmic ointment, Apply 1 cm to left eye every 6 (six) hours for 7 days., Disp: 3.5 g, Rfl: 0 ??? sertraline (ZOLOFT) 25 mg tablet, Take 1 tablet (25 mg total) by mouth daily. Take with 50 mg tablets for 75 mg daily. (Patient not taking: Reported on 05/22/2019 ), Disp: 30 tablet, Rfl: 11 Allergies Allergen Reactions ??? Cat Dander Hives has allergy to cats Vitals: 05/22/19 1003 BP: 123/75 Pulse: 80 Temp: 36.4 ??C SpO2: 97% PHYSICAL EXAMINATION GENERAL APPEARANCE: No acute distress. HEENT: Conjunctival injection both palpebral scleral, worse on the right than on the left. Vision seems fine. No other unusual findings. IMPRESSION/PLAN Conjunctivitis. Erythromycin ointment until cleared. Conservative measures are reviewed. Follow-up if not improving as expected or otherwise as needed. documented in this encounter Plan of Treatment Not on filedocumented as of this encounter Visit Diagnoses Diagnosis Conjunctivitis - Primary documented in this encounter Additional Health Concerns Assessment Noted Time PHQ-9 Depression Total Score: 1 11/16/2012 11:45 AM CS T documented as of this encounter
--- OUTSIDE RECORDS SUMMARY | 2022-07-09 20:41 | XMS_ITS | Encounter Summary ---
:1990 Author Organization [facility] Address [address] [place] [address] Care Team Providers Name Role Phone Unavailable Primary Care Provider Unavailable Encounter Details Date Type Department Care Team Description 10/04/2018 Hospital Encounter Department of Dana Hanson ion Other Normal First Trimester; Laboratory Medicine Ramonita Bose With Personal History Preeclam psia Previous in [place], [address] [place] [phone] Social History Tobacco Use Types Packs/Day Years [...] do you attend hoahaoism or Never 2020 synagogue services? Do you belong to any clubs [...] End Date albuterol (PROVENTIL Inhale 1-2 puffs 0 8 HFA,VENTOLIN HFA) 90 as needed. mcg/actuation inhaler ondansetron (ZOFRAN) 4 mg Take 4 mg by mouth 0 tablet daily. cetirizine (ZyrTEC) 10 mg Take 1 tablet (10 30 tablet 11 05/27/2019 tablet mg total) by mouth daily. omeprazole (PriLOSEC) 20 Take 1 capsule (20 30 capsule 9 09/23/[address] capsule mg total) by mouth daily. Take 1 tablet by 90 tablet 3 03/24/2018 03/24/20 19 lbarqma-rsuacrfj-epog mouth daily. fumarate-FA (VINATE M) 27-1 mg per tablet raNITIdine (ZANTAC) 150 mg Take 1 tablet (150 60 tablet 3 0 05/02/2018 05/02/2019 tablet mg total) by mouth 2 (two) times a day. aspirin [address] tablet Take by mouth. 0 05/05/2021 cholecalciferol (VITAMIN Take 2 tablets 60 tablet 8 018 06/18/2020 D3) 400 Unit tablet (800 Units total) by mouth daily. 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 With Personal History Preeclampsia Previous documented in this encounter Results (ABNORMAL) Urinalysis, Dipstick (10/04/2018 12:09 PM PAPER CUTTER OPERATOR) P athologist Signature Source Midstream 10/04/2018 ED [facility] 12:18 PM [facility] Clarity Clear Clear 10/04/2018 ED [facility] 12:18 PM [facility] Color Yellow 10/04/2018 ED [facility] 12:18 PM [facility] Comment: ----REFERENCE VALUE---- Colorless Yellow Jaimee Blood Trace (A) Negative 10/04/2018 12:18 PM [facility] Nitrite Negative Negative 10/04/2018 12:18 PM [facility] Leukocyte Esterase Negative Negative 10/04/2018 12:18 PM [facility] Protein Negative mg/dL 10/04/2018 12:18 PM [facility] Comment: ----REFERENCE VALUE---- Negative Trace Glucose Negative Negative mg/dL 10/04/2018 12:18 PM [facility] Ketones, QI(U) Negative Negative mg/dL 10/04/2018 12:18 PM [facility] Bilirubin Negative Negative 10/04/2018 12:18 PM [facility] pH 6.0 5.0 - 8.0 10/04/2018 12:18 PM [facility] Specific [place] 1.020 1.001 - 1.035 10/04/2018 12:18 PM [facility] Urobilinogen 0.2 0.2 - 1.0 mg/dL 10/04/2018 12:18 PM [facility] Specimen Anatomical Collection Method Collection Time Receive d Time (Source) Location / / Volume Laterality Urine (Urine, 10/04/2018 12:09 10/04/2018 Clean Catch) PM PAPER CUTTER OPERATOR 12:14 PM PAPER CUTTER OPERATOR Lidya Hanson M.D. LAB URINE ORDERABLES Performing Organization Address City/State/ZIP Code Phon e Number [facility] [address] [place] [address] LAB documented in this encounter Visit Diagnoses Diagnosis Examination Other Normal Pregna ncy First Trimester (HCC) With Personal History Preeclam psia Previous (HCC) documented in this encounter Additional Health Concerns Assessment Noted Time PHQ-9 Depression Total Score: 1 11/16/2012 11:45 AM CS T documented as of this encounter
--- OUTSIDE RECORDS SUMMARY | 2022-07-09 20:41 | XMS_ITS | Encounter Summary ---
:1990 Author Organization [facility] Address [address] [place] [address] Care Team Providers Name Role Phone Unavailable Primary Care Provider Unavailable Encounter Details Date Type Department Care Team Description 07/19/2018 Hospital Encounter Department of [place], Abnormal Ultrasound Laboratory Medicine Ramonita Bose. in [place], [address] [place], [place] [phone] Social History Tobacco Use Types Packs/Day Years [...] or relatives? How often do you attend anabaptism or Never 2020 zoroastrian services? Do you belong to any clubs or No 06/25/2021 organizations such as anabaptism groups, unions, fraternal or athletic groups, or [...] Sig Dispensed Refills Start Date End Date cetirizine (ZyrTEC) 10 mg Take 1 tablet (10 30 tablet 11 05/27/2019 tablet mg total) by mouth daily. Take 1 tablet by 90 tablet 3 03/24/2018 03/24/20 19 upotikx-ffahkxyg-jnuj mouth daily. fumarate-FA (VINATE M) 27-1 mg [...] Name Priority Date/Time Associated Diagnosis Comme nts [id number] Routine 07/19/2018 3:47 PM Abnormal Ultrasound Re sults for this PLUS-SENT OUT LAB CDT procedure are in the results section. documented in this encounter Results [id number] Plus (07/19/2018 3:47 PM CDT) P athologist Signature Result SEE COMMENT 07/25/2018 [place] 10:34 AM CDT [facility] Comment: For final report, select Lab-Send Out L ab Results hyperlink below. Specimen Anatomical Collection Method Collection Time Receive d Time (Source) Location / / Volume Laterality Blood (Blood, 07/19/2018 3:47 PM 07/20/20 18 8:46 Venous) CDT AM CDT Narrative [place] [facility] Dattch L LC - 07/25/2018 10:34 AM CDT Specimen Information: Specimen ID: [id number] Specimen Type: Blood Specimen Collection Start Date: 018 ??3:47 PM Specimen Received Date: 07/20/2018 ??8: 46 AM Specimen ID: [id number] Specimen Type: Blood Specimen Collection Start Date: 018 ??3:47 PM Specimen Received Date: 07/20/2018 ??8: 46 AM Lidya Hanson M.D. LAB BLOOD NON ADD-ON Performing Organization Address City/State/ZIP Code Phon e Number [facility] [address] documented in this encounter Visit Diagnoses Diagnosis Abnormal Ultrasound documented in this encounter Additional Health Concerns Assessment Noted Time PHQ-9 Depression Total Score: 1 11/16/2012 11:45 AM CS T documented as of this encounter
--- OUTSIDE RECORDS SUMMARY | 2022-07-09 20:41 | XMS_ITS | Encounter Summary ---
:1990 Author Organization [facility] Address [address] [place] [address] Care Team Providers Name Role Phone Unavailable Primary Care Provider Unavailable Encounter Details Date Type Department Care Team Description 06/21/2018 Orders Only Department of Obstetrics and Lidya Hanson Gynecology in [place] [address] [place], [place] [phone] (Wo rk) Social History Tobacco Use Types [...] or relatives? How often do you attend worship or Never 2020 temple services? Do you belong to any clubs or No 06/25/2021 organizations such as worship groups, unions, fraternal or athletic groups, or [...]
--- OUTSIDE RECORDS SUMMARY | 2022-07-09 20:41 | XMS_ITS | Encounter Summary ---
:1990 Author Organization [facility] Address [address] [place] [address] Care Team Providers Name Role Phone Unavailable Primary Care Provider Unavailable Encounter Details Date Type Department Care Team Description 10/07/2018 Clinical Communication Department of [place] Obstetrics and [place] [facility] in [address] [place], [place] [address] [facility] [address] [place], [place] [phone] (Work) [phone] Social History Tobacco Use Types Packs/Day Years [...] or relatives? How often do you attend caodaism or Never 2020 faith services? Do you belong to any clubs or No 06/25/2021 organizations such as caodaism groups, unions, fraternal or athletic groups, or [...] this encounter Miscellaneous Notes Telephone Encounter - Lidya Hanson M.D. - 10/10/2018 4:24 PM [facility] Noted. I agree with plan. R COATING HAND Telephone Encounter - Hanna Riggins R.N. - 10/10/2018 4:01 PM CST Barbra returned call and advised that we need to have her sign a PAULA to send her records to [facility] for continued care. She informs me that she has not been feeling well and has had nausea/vomiting since Wednesday night. Also states having dizziness. She says that she has not had much food and taking small amounts of fluids. Confirms good movement. States she is having contractions, she was vague as to how often. When asked how many times/hour she states 6 contractions per hour. Denies vaginal bleeding or loss offluids. I advised that it would be best to have her present to [facility] to be evaluated/monitored. Verbalizes understanding. U staff notified. 31 5/7 week gestation with H/O previous delivery R COATING HAND Telephone Encounter - Hanna Riggins R.N. - 10/10/2018 1:33 PM CST Left message to call back [facility] COATING HAND Telephone Encounter - Lidya Hanson M.D. - 10/10/2018 11:56 AM [facility] I would like her to see Dr. Her at [facility] then. Please arrange an appointment in the next 2-3 weeks and arrange for release of information as you mentioned. Thank you! R COATING HAND Telephone Encounter - Hanna Riggins R.N. - 10/10/2018 10:19 AM CST I called both clinics and both doctors that you suggested do deliver at [facility]. Were you only wanting those specific doctors? I was told Dr. Davis is scheduled out further. [facility] would be one from their group. Do you have a preference in clinic? I will then call the patient as and here come to sign release of information for records to get faxed/reviewed. [facility] fax number: [phone] [facility] fax number: [phone] Attn: Fabienne [facility]ATING [facility] Telephone Encounter - Lidya Hanson M.D. - 10/07/2018 4:22 PM [facility] [employer] Barbra cannot deliver here in [place] due to the need for a echocardiogram within 24-48 hours after delivery. She would prefer to deliver in [place]. Please see if either Dr. Daivs [facility] ([phone]) or Dr. Her with [facility] ([phone]) deliver in [place], and if so, please see if we could send a referral to get her in with one of these physicians inthe next couple of weeks. R COATING HAND documented in this encounter Plan of Treatment Not on filedocumented as of this encounter Visit Diagnoses Not on filedocumented in this encounter Additional Health Concerns Assessment Noted Time PHQ-9 Depression Total Score: 1 11/16/2012 11:45 AM CS T documented as of this encounter
--- OUTSIDE RECORDS SUMMARY | 2022-07-09 20:41 | XMS_ITS | Encounter Summary ---
:1990 Author Organization [facility] Address [address] [place] [address] Care Team Providers Name Role Phone Unavailable Primary Care Provider Unavailable Reason for Referral Outpatient (Routine) - Closed Specialty Diagnoses / Procedures Referred By Contact Refer red To Contact Physical Medicine and Diagnoses Pain Generalized Abdominal Examination Other Normal Second Trimester (HCC) ROSENDO Hanson [facility] [place] [address] [place] [address] Referral ID Status Reason Start Date Expiration Date Visits Requ ested Visits Authorized [id number] Closed 07/19/2018 07/19/2019 1 1 Scheduling Instructions Schedule in [place] Reason for Visit Reason Comments Routine Visit 19 6/7 weeks Encounter Details Date Type Department Care Team Description 07/19/2018 Routine Department of Beltran Hanson Other Normal Second Trimester (Primary Dx); Obstetrics and [place] Pain Generalized Abdominal; Gynecology in [address] Abnormal Ultra sound ; [place], [place] [address] Allergy Seasonal; [address] [place], [place] Maternal Care For Unspecifie d Type Scar From Previous Delivery; [place] [address] Personal History Intrauterine Growth Res triction High Risk ; [address] With Personal Hist ory Preeclampsia Previous ; Maternal Care Due To Uterine Scar From O ther Previous Surgery; [phone] Depression Anxi ety; (Fax) Body Mass Index 45.0 To 49.9 Adult (HCC) Social History Tobacco Use Types Packs/Day Years [...] do you attend methodist or Never 2020 mormonism services? Do you [...] Sign Reading Time Taken Comments Blood Pressure 102/68 07/19/2018 2:57 PM CDT Pulse - - Temperature - - Respiratory Rate - - Oxygen Saturation - - Inhaled Oxygen Concentration - - Weight 106 kg (233 lb 11 oz) 07/19/2018 2:57 PM CDT Height - - Body Mass Index 47.75 04/14/2018 11:36 AM CDT documented in this encounter Progress Lidya Garza M.D. - 07/19/2018 3:00 PM CDT S: She reports that she is feeling pain in the area of her section incision. This is after eating, when turning over while laying down, and when she is moving around. It is a sharp, cutting pain. She is also continues to feel very fatigued. 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 No other anatomic anomalieswere noted, but the views of the heart, feet, and spine were suboptimal. She was counseled of the increased risk of Down syndrome of 1 in 49 due to the findings of the hypoplastic nasal bone. She has been very concerned about this possibility ever since the ultrasound. REVIEW OF SYSTEMS: General: No fever, chills, fatigue, unintentional weight loss, or weight gain HEENT: No sore throat, nasal congestion, changes in vision or changes in hearing Cardiovascular: No chest pain, irregular heartbeat or racing heart Respiratory: No shortness of breath, cough, or wheezing Gastrointestinal: No nausea, vomiting, diarrhea, or constipation, + abdominal pain Genitourinary: No leaking urine, pain with urination, burning with urination, irregular vaginal bleeding, heavy periods, painful periods, abnormal vaginal discharge or leaking gas or stool Skin: No rashes or skin lesions Breasts: No masses or lumps, or discharge from the nipples Neuro: No difficulty with memory, numbness, tingling, or falls Psych: No anxiety or depression, + difficulty sleeping Endocrine: Hair loss, + intolerance of heat or cold or excessive thirst O: ABDOMEN: Soft, nontender. Gravid. No masses palpable. Well-healed Pfannenstiel skin incision. EXTREMITIES: Lower extremities nontender. No edema. IMPRESSION/PLAN 27 y.o. at 19w6d by 6+1 week ultrasound who presents for an acute OB visit today. 1. care: 1st trimester OB education up to date. Second and 3rd trimester education at 28 week visit. 2. History of prior section x4 with classical section with her last delivery: Level 2 ultrasound with Maternal Medicine revealed an anterior placenta. There was no evidence of placenta accreta on the Level II US. The provider counseled her that this does not preclude the risk. Maternal- Medicine will follow this closely with ultrasounds every 4 weeks throughout the . She was counseled on the risks including hemorrhage and potential need for hysterectomy at the time of section if accreta is present. Given her prior classical section, delivery was recommended at 36+0 to 37+0??weeks. This would need to potentially be earlier if there were concerns for placenta accreta. 3. ??History of depression and anxiety: ??She reports that her mood symptoms have improved with the medication she was prescribed. Her EPDS score was 11 at the time of the last visit. ??She has been onEffexor 150 mg daily in the past for management of this. We started her on Zoloft 50 mg daily and increased her dose to 75 mg 3 weeks ago. I will see how she is doing with this when she returns, and wewill increase her doses as needed. She believes that she has taken the news regarding the ultrasoundharder due to her mood issues recently. 4. ??History of preeclampsia with severe features: ??The patient was delivered at 33 weeks 1 day dueto this. ??So far with this , her blood pressure is normal. Baseline HELLP labs returned normal. 24 hr urine protein and urine protein/creatininte ratio have not been completed, so I will ask the patient again to do this at the time of her next visit. ??Urine dip is negative for protein today. She is on aspirin 81 mg for preeclampsia prevention. ??I will see her weekly beginning at 32 weeks.We will also plan growth ultrasounds monthly after 20 weeks. Urine dips for protein prior to each visit. 5. History of growth restriction: ??As noted above, we will plan monthly ultrasounds after 20 weeks to assess growth with this . Since Maternal- Medicine will be performing monthly growth ultrasounds to assess her placenta, they will follow growth, as well. ??If growth restriction were noted, we would need to initiate testing with Dopplers. 6. ??BMI >40: ??Plan anesthesia consult in the 3rd trimester. Early GCT returned normal. We will repeat this at 28 weeks. 7. Seasonal allergies: A prescription for Zyrtec to use daily was sent. Her symptoms are improved with this. 8. Vitamin-D efficiency: The patient is status post ergocalciferol 50,000 international units weeklyx8 weeks. Rx for daily vitamin D3 800 international units sent today. 9. Heartburn: Improved with Zantac 150 mg bid. 10. 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 cardiac anatomy,spine anatomy, and feet were not able to be visualized well at the time of level 2 ultrasound. The patient will return 1 month after the initial ultrasound for repeat ultrasound to evaluate those structures. Maternal- Medicine also offered maternal serum screening and amniocentesis for further evaluation of this finding, since it does increase her risk of trisomy 21 to 1 in 49. The patient is scheduled to return there in the next several weeks for genetic counseling, maternal serum screening, and repeat ultrasound. However, she would like to get the results of this maternal serum screening back sooner. This will be ordered here today. 12. Low abdominal pain at her Pfannenstiel skin incision site: This is likely due to scar tissue andstretching of the tissue related to her gravid abdomen. She has been seen at the center once or twice since I saw her last for this pain. She has also called into the clinic due to this. She was reassured today that this is not dangerous but likely related to scar tissue from her prior sections. I have sent referral to physical medicine rehab to see if they have any potential options for injections near her incision to help with this pain. 13. Follow-up: In 2 weeks for OBFU and in 2-3 weeks with MFM for repeat US and genetic counseling. documented in this encounter Plan of Treatment Scheduled Referrals Name Type Priority Associated Order Schedule Diagnoses Physical Medicine and Outpatient Routine Pain Generalized Ex pected: Rehabilitation - Referral Abdominal 07/19/2018 General consult Examination (Approximate ), (clinic) Other Expires: Normal 07/19/2021 Second Trimester documented as of this encounter Results [id number] Plus (07/19/2018 3:47 PM CDT) P athologist Signature Result SEE COMMENT 07/25/2018 [facility] 10:34 AM CDT [facility] Comment: For final report, select Lab-Send Out L ab Results hyperlink below. Specimen Anatomical Collection Method Collection Time Receive d Time (Source) Location / / Volume Laterality Blood (Blood, 07/19/2018 3:47 PM 07/20/20 18 8:46 Venous) CDT AM CDT Narrative [facility] - 07/25/2018 10:34 AM CDT Specimen Information: Specimen ID: [id number] Specimen Type: Blood Specimen Collection Start Date: 018 ??3:47 PM Specimen Received Date: 07/20/2018 ??8: 46 AM Specimen ID: [id number] Specimen Type: Blood Specimen Collection Start Date: 018 ??3:47 PM Specimen Received Date: 07/20/2018 ??8: 46 AM Lidya Hanson M.D. LAB BLOOD NON ADD-ON Performing Organization Address City/State/ZIP Code Phon e Number [place] [id number] [address] documented in this encounter Visit Diagnoses Diagnosis Examination Other Normal Pregna ncy Second Trimester (HCC) - Primary Pain Generalized Abdominal Abnormal Ultrasound Allergy Seasonal Maternal Care For Unspecified Type Scar From Previous Delivery (HCC) Personal History Intrauterine Growth Res triction High Risk (HCC) With Personal History Preeclam psia Previous ([facility]) Maternal Care Due To Uterine Scar From O ther Previous Surgery ([facility]) Depression Anxiety Body Mass Index 45.0 To 49.9 Adult (HCC) Abnormal Ultrasound documented in this encounter Additional Health Concerns Assessment Noted Time PHQ-9 Depression Total Score: 1 11/16/2012 11:45 AM CS T documented as of this encounter
--- OUTSIDE RECORDS SUMMARY | 2022-07-09 20:41 | XMS_ITS | Encounter Summary ---
:1990 Author Organization [facility] Address [address] [place] [address] Care Team Providers Name Role Phone Unavailable Primary Care Provider Unavailable Encounter Details Date Type Department Care Team Description 07/19/2018 Clinical Communication Department of [place] Obstetrics and [place] Gynecology in [address] [place], [place] 200 [facility] [place] [address] [place], [place] [phone] [address] (Work) [phone] Social History Tobacco Use Types Packs/Day Years [...] do you attend druze or Never 2020 hinduism services? Do you belong to any clubs [...] this encounter Miscellaneous Notes Telephone Encounter - Zohreh Hinton L.P.N. - 07/22/2018 9:55 AM CDT Patient will be seen on Jul 28 at 330 Telephone Encounter - Deepa Barakat - 07/20/2018 4:08 PM CDT Patient is calling back please call her back at [phone] Telephone Encounter - Lashonda Cavazos L.P.N. - 07/20/2018 9:10 AM CDT Left message to call back. Telephone Encounter - Siddharth Tripathi M.D. - 07/20/2018 4:13 AM CDT Zohreh, please contact this patient and offer her a triage slot for mayra. Thank you for the messageLidya. Telephone Encounter - Lidya Hanson M.D. - 07/19/2018 7:[address] Tripathi, I am sending this patient to see you. She is 19 weeks and has a history of 4 prior cesareansections. She has sharp abdominal pain in the area of her pfannenstiel incision with movement. I am unable to reproduce it with palpation and it is across the entire area of her incision She has had frequent visits to the clinic and Center and calls to the clinic due to this. Not sure if you will be able to help, since it does seem to be generalized in the area of the incision. Thank you for your help with this! documented in this encounter Plan of Treatment Not on filedocumented as of this encounter Visit Diagnoses Not on filedocumented in this encounter Additional Health Concerns Assessment Noted Time PHQ-9 Depression Total Score: 1 11/16/2012 11:45 AM CS T documented as of this encounter
--- OUTSIDE RECORDS SUMMARY | 2022-07-09 20:41 | XMS_ITS | Encounter Summary ---
:1990 Author Organization [facility] Address [address] [place] [address] Care Team Providers Name Role Phone Unavailable Primary Care Provider Unavailable Encounter Details Date Type Department Care Team Description 09/23/2018 Hospital Encounter Department of Dana Hanson ion Other Normal First Trimester; Laboratory Medicine [place] With Personal History Preeclam psia Previous in [place], [address] [place] [phone] Social History Tobacco Use Types Packs/Day Years [...] or relatives? How often do you attend mu-ism or Never 2020 orthodox services? Do you belong to any clubs or No 06/25/2021 organizations such as mu-ism groups, unions, fraternal or athletic groups, or [...] slept in a care home (including now)? Sex Assigned at Date [...] by 90 tablet 3 03/24/2018 03/24/20 19 tpudaqx-cdaabxbo-rldo mouth daily. fumarate-FA (VINATE M) 27-1 mg [...] Date/Time Associated Diagnosis Comme nts URINALYSIS, Routine 09/23/2018 8:57 AM Examination R esults for this DIPSTICK ICT DEVELOPMENT MANAGER Other Normal procedure are i n First the results Trimester section. With Personal History Preeclampsia Previous documented in this encounter Results (ABNORMAL) Urinalysis, Dipstick (09/23/2018 8:57 AM ICT DEVELOPMENT MANAGER) P athologist Signature Source Midstream 09/23/2018 [facility] 9:09 AM [facility] Clarity Cloudy (A) Clear 09/23/2018 [facility] 9:09 AM [facility] Color Yellow 09/23/2018 [facility] 9:09 AM [facility] Comment: ----REFERENCE VALUE---- Colorless Yellow Jaimee Blood Trace (A) Negative 09/23/2018 9:09 AM [facility] Nitrite Negative Negative 09/23/2018 9:09 AM [facility] Leukocyte Esterase Negative Negative 09/23/2018 9:09 AM CS T [facility] B Protein Negative mg/dL 09/23/2018 9:09 AM [facility] Comment: ----REFERENCE VALUE---- Negative Trace Glucose Negative Negative mg/dL 09/23/2018 9:09 AM [facility] Ketones, QI(U) Negative Negative mg/dL 09/23/2018 9:09 AM [facility] Bilirubin Negative Negative 09/23/2018 9:09 AM [facility] pH 6.0 5.0 - 8.0 09/23/2018 9:09 AM [facility] Specific [place] 1.025 1.001 - 1.035 09/23/2018 9:09 AM [facility] Urobilinogen 0.2 0.2 - 1.0 mg/dL 09/23/2018 9:09 AM [facility] Specimen Anatomical Collection Method Collection Time Receive d Time (Source) Location / / Volume Laterality Urine (Urine, 09/23/2018 8:57 AM 09/23/20 18 9:02 Clean Catch) ICT DEVELOPMENT MANAGER [facility] Lidya Hanson M.D. LAB URINE ORDERABLES Performing Organization Address City/State/ZIP Code Phon e Number [facility] [address] [place] [address] LAB documented in this encounter Visit Diagnoses Diagnosis Examination Other Normal Pregna ncy First Trimester (HCC) With Personal History Preeclam psia Previous (HCC) documented in this encounter Additional Health Concerns Assessment Noted Time PHQ-9 Depression Total Score: 1 11/16/2012 11:45 AM CS T documented as of this encounter
--- OUTSIDE RECORDS SUMMARY | 2022-07-09 20:41 | XMS_ITS | Encounter Summary ---
:[address] [facility] Address [address] [place] [address] Care Team Providers Name Role Phone Unavailable Primary Care Provider Unavailable Encounter Details Date Type Department Care Team Description 07/11/2018 Clinical Communication Department of [place] Obstetrics and [place] Gynecology in [address] [place], [place] 200 [facility] [address] [place], [place] [phone] (Work) [phone] Social History Tobacco Use Types Packs/Day Years [...] do you attend religious or Never 2020 worship services? Do you belong to any clubs [...]
--- OUTSIDE RECORDS SUMMARY | 2022-07-09 20:41 | XMS_ITS | Encounter Summary ---
:1990 Author Organization [facility] Address [address] [place] [address] Care Team Providers Name Role Phone Unavailable Primary Care Provider Unavailable Reason for Visit Reason Comments Routine Visit NOB exam Outpatient (Routine) - Closed Specialty Diagnoses / Procedures Referred By Contact Refer red To Contact Obstetrics and ROSENDO Hanson [place] Gynecology [place] [address] [facility] [place] [address] Referral ID Status Reason Start Date Expiration Date Visits Requ ested Visits Authorized [id number] Closed 05/27/2018 05/27/2019 1 1 Encounter Details Date Type Department Care Team Description 07/08/2018 Routine Department of Beltran Hanson Other Normal Second Trimester (Primary Dx); Obstetrics and [place] Personal History Intrauterine Growth Res triction High Risk ; Gynecology in [address] With Personal History Preeclampsia Previous ; [facility] Maternal Care Due To Uterine Scar From O ther Previous Surgery; [address] [facility] [place] [facility] Personal Histor y; [place] [address] Deficiency Vitamin D; [address] Body Mass Index 45.0 To 49.9 Adult (HCC); Depression Anxiety; [phone] Maternal Care F or Unspecified Type Scar From Previous Delivery; (Fax) Allergy Seasona l Social History Tobacco Use Types Packs/Day Years [...] do you attend shinto or Never 2020 nondenominational services? Do you belong to any clubs [...] Sign Reading Time Taken Comments Blood Pressure 100/64 07/08/2018 2:23 PM CDT Pulse 80 07/08/2018 2:23 PM CDT Temperature 36.6 ??C (97.9 ??F) 07/08/2018 2:23 PM CDT Respiratory Rate 16 07/08/2018 2:23 PM CDT Oxygen Saturation - - Inhaled Oxygen Concentration - - Weight 105 kg (230 lb 9.6 oz) 07/08/2018 2:23 PM CDT Height - - Body Mass Index 47.12 04/14/2018 11:36 AM CDT documented in this encounter Progress Lidya Garza M.D. - 07/08/2018 2:15 PM CDT S: She reports that she is feeling pain in the area of her section incision. She is also feeling very fatigued and reports that she sleeps all the time. She has had improvement in her allergy symptoms with Zyrtec. REVIEW OF SYSTEMS: General: No fever or chills, + fatigue, No unintentional weight loss, or weight gain HEENT: [...] memory, numbness, tingling, or falls Psych: No anxiety, depression or difficulty sleeping Endocrine: No excessive thirst, hair loss, intolerance of heat or cold O: Vitals: 07/08/18 1423 BP: 100/64 Pulse: 80 Temp: 36.6 ??C Resp: 16 Weight: 104.6 kg TempSrc: Temporal GENERAL: Well nourished female in no acute distress. SKIN: No rashes or lesions HEAD: Normocephalic, atraumatic. EYES: Sclerae without injection or icterus. ENT: Tympanic membranes pearly white bilaterally with positive light reflex. Nasal turbinates are not erythematous or edematous. Posterior oropharynx without erythema or exudates. Good dentition. LYMPH NODES: Neck supple. No cervical, supraclavicular or axillary lymphadenopathy. THYROID: No thyromegaly. BREASTS: Symmetric bilaterally. No lesions or dimpling of the skin noted. No dominant masses palpable. Nipples without inversion or drainage. HEART: Regular rate and rhythm. No murmurs, rubs or gallops. LUNGS: Breathing nonlabored. Chest clear to auscultation bilaterally. No wheezes or rales. ABDOMEN: Soft, nontender. Nondistended. Normoactive bowel sounds. No masses palpable. Fundus palpable and 20 weeks size. Well-healed Pfannenstiel skin incision. RECTUM: No external hemorrhoids noted. GENITALIA: External genitalia without lesions or abnormalities. Normal pubic hair distribution. Urethral meatus normal in location and appearance without masses. Vaginal mucosa is pink and moist with asmall amount of thin clear discharge present. The cervix is nulliparous and without gross lesions or abnormalities. On bimanual examination, the uterus is enlarged and 20 weeks size, nontender, there are no adnexal masses or tenderness noted. SPINE: No spinal, paraspinal or CVA tenderness. EXTREMITIES: Lower extremities nontender. No edema. GAIT: Normal. MENTAL: Alert and oriented times three. Affect pleasant. Mood happy. NEUROLOGIC: Cranial nerves II through XII grossly intact. Reflexes 2+ at patellas. IMPRESSION/PLAN 27 y.o. at 18w2d by 6+1 week ultrasound who presents for new OB visit today. 1. care: 1st trimester OB education up to date. Second and 3rd trimester education at 28 week visit. New OB physical examination completed today. 2. History of prior section x4 with classical section with her last delivery: ??Khadra plan level 2 ultrasound with Maternal Medicine to assess placentation due to increased risk of abnormal placentation with 4 prior sections. ??Will she require repeat section at 36+0 to 37+0??weeks due to this. 3. ??History of depression and anxiety: ??She reports that her mood symptoms have improved with the medication she was prescribed. Her EPDS score is 11 today. ??She has been on Effexor 150 mg daily in the past for management of this. We started her on Zoloft 50 mg daily and increased her dose to 75 mg2 1/2 weeks ago. I will see how she is doing with this when she returns, and we will increase her doses as needed. 4. ??History of preeclampsia with severe features: ??The patient was delivered at 33 weeks 1 day dueto this. ??So far with this , her blood pressure is normal. Baseline HELLP labs and urine protein to creatinine ratio returned normal. 24 hr urine protein and urine protein/creatininte ratio have not been completed, so I will ask the patient again to do this at the time of her next visit. ??She is on aspirin 81 mg for preeclampsia prevention. ??I will see her weekly beginning at 32 weeks. ??As noted above, we will plan level 2 ultrasound with Maternal Medicine. ??We will also plan growth ultrasounds monthly after 20 weeks. Urine dips for protein prior to each visit. 5. Viability: Doptones were unable to be heard today. Therefore, ultrasound was performed and shows a viable intrauterine with normal cardiac activity. 6. ??History of growth restriction: ??As noted above, we will plan monthly ultrasounds after 20 weeks to assess growth with this . ??If growth restriction were noted, we would needto initiate testing with Dopplers. 7. ??BMI >40: ??Plan anesthesia consult in the 3rd trimester. Early GCT returned normal. We will repeat this at 288 weeks. 8. Seasonal allergies: A prescription for Zyrtec to use daily was sent. Her symptoms are improved with this. 9. Vitamin-D efficiency: The patient is currently taking ergocalciferol 50,000 international units weekly x8 weeks. Once she completes this, we will transition her to daily vitamin D3 800 internationalunits. 10. Heartburn: Zantac 150 mg bid. I will see how she is doing with this when she returns. 11. Follow-up: In 1 month for OBFU and in 1-2 weeks with MFM for level II US. documented in this encounter Plan of Treatment Not on filedocumented as of this encounter Visit Diagnoses Diagnosis Examination Other Normal Pregna ncy Second Trimester (HCC) - Primary Personal History Intrauterine Growth Res triction High Risk (HCC) With Personal History Preeclam psia Previous ([facility]) Maternal Care Due To Uterine Scar From O ther Previous Surgery ([facility]) Stone Kidney Personal History Deficiency Vitamin D Body Mass Index 45.0 To 49.9 Adult ([facility]) Depression Anxiety Maternal Care For Unspecified Type Scar From Previous Delivery ([facility]) Allergy Seasonal documented in this encounter Additional Health Concerns Assessment Noted Time PHQ-9 Depression Total Score: 1 11/16/2012 11:45 AM CS T documented as of this encounter
--- OUTSIDE RECORDS SUMMARY | 2022-07-09 20:41 | XMS_ITS | Encounter Summary ---
:1990 Author Organization [facility] Address [address] [place] [address] Care Team Providers Name Role Phone Unavailable Primary Care Provider Unavailable Encounter Details Date Type Department Care Team Description 10/12/2018 Hospital Encounter Department of Dana Hanson ion Laboratory Medicine Ramonita Bose. Other Normal in [place], [address] Trimester [address] [place] [id number] [phone] Social History Tobacco Use Types Packs/Day Years [...] do you attend judaism or Never 2020 baptist services? Do you belong to any clubs [...] by 90 tablet 3 03/24/2018 03/24/20 19 modssky-qonvonis-loqp mouth daily. fumarate-FA (VINATE M) 27-1 mg [...] Name Priority Date/Time Associated Diagnosis Comme nts SYPHILIS TOTAL AB Routine 10/12/2018 3:17 PM Examination Prena katlyn Results for this W/ REFLEX S MEAT TRIMMER Other Normal procedure are i n Third the results Trimester section. GLUCOSE WILBERT, 1HR, Routine 10/12/2018 3:17 PM Examination Prena katlyn Results for this S/P MEAT TRIMMER Other Normal procedure are i n Third the results Trimester section. CBC WITHOUT Routine 10/12/2018 3:17 PM Examination R esults for this DIFFERENTIAL, B MEAT TRIMMER Other Normal procedure ar e in Third the results Trimester section. documented in this encounter Results Syphilis IgG Antibody with Reflex (10/12/2018 3:17 PM MEAT TRIMMER) athologist [facility] Syphilis IgG Negative Negative 10/14/2018 [facility] Ab, S 12:20 PM MEAT TRIMMER [facility] LAB Comment: No serologic evidence of exposu re to syphilis. Specimen Anatomical Collection Method Collection Time Receive d Time (Source) Location / / Volume Laterality Blood (Blood, 10/12/2018 3:17 PM 10/13/19 19 Venous) MEAT TRIMMER 11:31 AM MEAT TRIMMER Lidya Hanson M.D. LAB BLOOD ADD-ON Performing Organization Address City/[facility]/ZIP Code Phon e Number [facility]- [address] [place] [address] [phone] [place] LAB (ABNORMAL) Glucose Tolerance Test, 1 hour (10/12/2018 3:17 PM MEAT TRIMMER) athologist [facility] Glucose Wilbert, 1 156 (H) <130 mg/dL 10/12/2018 [facility] hr, S 6:24 PM [facility] LAB Specimen Anatomical Collection Method Collection Time Receive d Time (Source) Location / / Volume Laterality Blood (Blood, 10/12/2018 3:17 PM 10/12/19 19 6:14 Venous) MEAT TRIMMER PM MEAT TRIMMER Lidya Hanson M.D. LAB BLOOD NON ADD-ON Performing Organization Address City/State/ZIP Code Phon e Number [facility] [address] [place] [phone] LAB (ABNORMAL) CBC without Differential (10/12/2018 3:17 PM MEAT TRIMMER) [facility] Method Time Signature Hemoglobin 11.6 11.6 - 10/12/2018 [facility] 15.0 g/dL 3:28 PM [facility] Hematocrit 35.1 (L) 35.5 - 10/12/2018 [facility] 44.9 % 3:28 PM [facility] LAB Erythrocytes 3.89 (L) 3.92 - 10/12/2018 [facility] 5.13 3:28 PM [facility] x10(12)/L SYSTEM- [employer] [facility] LAB MCV 90.2 78.2 - 10/12/2018 [facility] 97.9 fL 3:28 PM [facility] LAB RBC Distrib Width 13.3 12.2 - 10/12/2018 [facility] 16.1 % 3:28 PM [facility] LAB Platelet Count 253 157 - 371 10/12/2018 [facility] x10(9)/L 3:28 PM [facility] LAB Leukocytes 7.6 3.4 - 9.6 10/12/2018 [facility] x10(9)/L 3:28 PM [facility] LAB Specimen Anatomical Collection Method Collection Time Receive d Time (Source) Location / / Volume Laterality Blood (Blood, 10/12/2018 3:17 PM 10/12/19 19 3:23 Venous) MEAT TRIMMER PM MEAT TRIMMER Lidya Hanson M.D. LAB BLOOD ADD-ON Performing Organization Address City/State/ZIP Code Phon e Number [facility] [address] [place] [address] LAB documented in this encounter Visit Diagnoses Diagnosis Examination Other Normal Pregna ncy Third Trimester (HCC) documented in this encounter Additional Health Concerns Assessment Noted Time PHQ-9 Depression Total Score: 1 11/16/2012 11:45 AM CS T documented as of this encounter
--- OUTSIDE RECORDS SUMMARY | 2022-07-09 20:41 | XMS_ITS | Encounter Summary ---
:[address] [facility] Address [address] [place] [address] Care Team Providers Name Role Phone Unavailable Primary Care Provider Unavailable Reason for Referral Specialty Diagnoses / Procedures Referred By Contact Refer red To Contact Cooper Beltran M.D. [facility] Region [address] [place] [address] Referral ID Status Reason Start Date Expiration Date Visits Requ ested Visits Authorized Scheduling Instructions Schedule for 1 hour OMER SUPPORT TECHNICIAN Reason for Visit Reason Comments Routine Visit 29+2 weeks Appointment Request (Routine) - Closed Specialty Diagnoses / Procedures Referred By Contact Refer red To Contact Obstetrics and Gynecology Referral ID Status Reason Start Date Expiration Date Visits Requ ested Visits Authorized [id number] Closed 08/26/2018 08/26/2019 1 1 Encounter Details Date Type Department Care Team Description 09/23/2018 Routine Department of Beltran Beltran Other Normal Third Trimester (Primary Dx); Obstetrics and [place] Allergy Seasonal; Gynecology in [address] Maternal Care For Unspecified Type Scar From Previous Delivery; [facility] Personal History Intrauterine Growth Res triction High Risk ; [address] [place], [place] With Personal Hist ory Preeclampsia Previous ; [place] [address] Deficiency Vitamin D; [id number] Body Mass Index 45.0 To 49.9 Adult (HCC); Depression Anxiety; [phone] Heartburn; (Fax) Counseling Ster ilization Social History Tobacco Use Types Packs/Day Years [...] do you attend gnosticism or Never 2020 hindu services? Do you belong to any clubs [...] Sign Reading Time Taken Comments Blood Pressure 112/60 09/23/2018 9:13 AM CUSTOMER SUPPORT TECHNICIAN Pulse - - Temperature - - Respiratory Rate - - Oxygen Saturation - - Inhaled Oxygen Concentration - - Weight 105 kg (231 lb 9.5 oz) 09/23/2018 9:13 AM CUSTOMER SUPPORT TECHNICIAN Height - - Body Mass Index 47.32 04/14/2018 11:36 AM CDT documented in this encounter Progress Cooper Garza M.D. - 09/23/2018 9:00 AM CST S: She complains of having nausea and no energy. Some days are much worse than others. She is takingZofran for the nausea, but it does not help a lot. The nausea is not necessary worse with a full or empty stomach, but it does cause her to have decreased appetite. She does have occasional contractions, especially at bed time. The pain near her incision has improved significantly after the area was injected by Dr. Tripathi in PM&R. At this point, she only notices the pain when she coughs. Her initial level 2 ultrasound was performed on 07/13/2018 and revealed a hypoplastic nasal bone. Follow-upultrasounds since then have shown normal anatomy. However, cardiac echo was unable to appropriately visualize the cardiac structures. Maternal serum screen returned normal. She has had increased heartburn recently not managed with Zantac. She also reports occasional contractions but none that are regular or painful. REVIEW OF SYSTEMS: General: No fever, chills, fatigue, unintentional weight loss, or weight gain HEENT: No sore throat, nasal congestion, changes in vision or changes in hearing Cardiovascular: No chest pain, irregular heartbeat or racing heart Respiratory: No shortness of breath, cough, or wheezing Gastrointestinal: + nausea, No vomiting, diarrhea, constipation, or abdominal pain Genitourinary: No leaking urine, pain with urination, burning with urination, irregular vaginal bleeding, heavy periods, painful periods, abnormal vaginal discharge or leaking gas or stool Skin: No rashes or skin lesions Breasts: No masses or lumps, or discharge from the nipples Neuro: No difficulty with memory, numbness, tingling, or falls Psych: No anxiety, depression, or difficulty sleeping Endocrine: No hair loss, intolerance of heat or cold, or excessive thirst O: EXTREMITIES: Lower extremities nontender. No edema. IMPRESSION/PLAN 27 y.o. at 29w2d by 6+1 week ultrasound who presents for [...] delivery was recommended at 36+0 to 37+0??weeks. There is no concern for placenta accreta spectrum on US. We will plan a late course of steroids 2-3 days prior to her scheduled section per [facility] recommendations. 3. ??History of depression and anxiety: ??She reports that her mood symptoms have improved with the medication she was prescribed. Her EPDS score was 12 at the time of the last visit and has improved to 8 today. She has a lot of stressors that contribute to her mood symptoms, but overall she feels like she is doing much better from a mood standpoint.??We started her on Zoloft 50 mg daily and increased her dose to 75 mg. 4. ??History of preeclampsia with severe features: [...] weekly beginning at 32 weeks.We will also continue growth ultrasounds monthly with MFM. Urine dips for protein prior to each visit. 5. History of growth restriction: ??As noted above, we will plan monthly ultrasounds after 20 weeks to assess growth with this . Since Maternal- Medicine will be performing monthly growth ultrasounds to assess her placenta, they will follow growth, as well. Most recent US with MFM on 09/21/18 showed normal growth. If growth restriction were noted, we would need to initiate testing with Dopplers. 6. ??BMI >40: ??Plan anesthesia consult in the 3rd trimester. Early GCT returned normal. We will repeat this at the time of the next visit. 7. Seasonal allergies: A prescription for Zyrtec to use daily was sent. Her symptoms are improved with this. 8. Vitamin-D efficiency: Status post ergocalciferol 50,000 international units weekly x8 weeks. Daily vitamin D3 800 international units. 9. Heartburn: Initially improved with Zantac 150 mg bid. She is now having heart burn despite that and this may be contributing to her nausea. Rx for omeprazole sent today. 10. 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 We will obtain a CBCand type and screen at the time of admission for her section. 11. cardiac structures not well visualized at the time of cardiac echo: Structures are likely normal but the study quality was poor and not all structures were well visualized. Therefore, echocardiogram has been recommended 24-48 hours post delivery. The patient desires a Dr. Lorenz see the after delivery. I will be in touch with Dr. Lorenz to see if this is possible locally or if we need to deliver else for due to this. 12. Low abdominal pain at her Pfannenstiel skin incision site: This was likely due to scar tissue and stretching of the tissue related to her gravid abdomen. She was seen by Dr. Tripathi in physical medicine rehab for injections near her incision which has helped a lot with this pain. 13. Desires sterilization: We discussed today that sterilization is considered permanent. We discussed that there are alternative methods of contraception besides sterilization. However, the patient has had four prior sections, including a classical section, and her risk with further pregnancies is high. Therefore, she desires to proceed with sterilization at the time of her section. The Federal Tubal Consent form was discussed with her and she signed today. 14. Follow-up: In 2 weeks for education, 28 week labs and OBFU with the OB educator and in 1 month with mo for OBFU. OMER SUPPORT TECHNICIAN documented in this encounter Miscellaneous Notes Addendum Note - Cooper Beltran M.D. - 09/23/2018 9:00 AM CUSTOMER SUPPORT TECHNICIAN Addended by: COOPER BELTRAN on: 10/13/2018 12:15 PM Modules accepted: Orders OMER SUPPORT TECHNICIAN documented in this encounter Plan of Treatment Scheduled Referrals Name Type Priority Associated Diagnoses Order S chedule Obstetrics and Outpatient Referral Routine Examination Prenata l Expected: Gynecology - OB Other Normal 10/07/2018 education visit Third (Approxim ate), (clinic) Trimester Expires: 09/23/2021 documented as of this encounter Results Syphilis IgG Antibody with Reflex (10/12/2018 3:17 PM CUSTOMER SUPPORT TECHNICIAN) P athologist Signature Syphilis IgG Negative Negative 10/14/2018 [facility] Ab, S 12:20 PM CUSTOMER SUPPORT TECHNICIAN [facility] Comment: No serologic evidence of exposu re to syphilis. Specimen Anatomical Collection Method Collection Time Receive d Time (Source) Location / / Volume Laterality Blood (Blood, 10/12/2018 3:17 PM 10/13/19 19 Venous) CUSTOMER SUPPORT TECHNICIAN 11:31 AM CUSTOMER SUPPORT TECHNICIAN Cooper Beltran M.D. LAB BLOOD ADD-ON Performing Organization Address City/State/ZIP Code Phon e Number [facility]- [address] [place] [address], [place] [address] [place] LAB (ABNORMAL) Glucose Tolerance Test, 1 hour (10/12/2018 3:17 PM CUSTOMER SUPPORT TECHNICIAN) P athologist Signature Glucose Wilbert, 1 156 (H) <130 mg/dL 10/12/2018 [facility] hr, S 6:24 PM [facility] LAB Specimen Anatomical Collection Method Collection Time Receive d Time (Source) Location / / Volume Laterality Blood (Blood, 10/12/2018 3:17 PM 10/12/19 19 6:14 Venous) CUSTOMER SUPPORT TECHNICIAN PM CUSTOMER SUPPORT TECHNICIAN Cooper Beltran M.D. LAB BLOOD NON ADD-ON Performing Organization Address City/State/ZIP Code Phon e Number [facility] [place] [address] [place] [address] LAB (ABNORMAL) CBC without Differential (10/12/2018 3:17 PM CUSTOMER SUPPORT TECHNICIAN) [facility] gist Method Time Signature Hemoglobin 11.6 11.6 - 10/12/2018 [facility] 15.0 g/dL 3:28 PM [facility] Hematocrit 35.1 (L) 35.5 - 10/12/2018 [facility] 44.9 % 3:28 PM [facility] LAB Erythrocytes 3.89 (L) 3.92 - 10/12/2018 [facility] 5.13 3:28 PM [facility] x10(12)/L [facility] LAB MCV 90.2 78.2 - 10/12/2018 [facility] 97.9 fL 3:28 PM [facility] RBC Distrib Width 13.3 12.2 - 10/12/2018 [facility] 16.1 % 3:28 PM [facility] LAB Platelet Count 253 157 - 371 10/12/2018 [facility] x10(9)/L 3:28 PM [facility] Leukocytes 7.6 3.4 - 9.6 10/12/2018 [facility] x10(9)/L 3:28 PM [facility] LAB Specimen Anatomical Collection Method Collection Time Receive d Time (Source) Location / / Volume Laterality Blood (Blood, 10/12/2018 3:17 PM 10/12/19 19 3:23 Venous) CUSTOMER SUPPORT TECHNICIAN PM CUSTOMER SUPPORT TECHNICIAN Cooper Beltran M.D. LAB BLOOD ADD-ON Performing Organization Address City/State/ZIP Code Phon e Number [facility] [address] [place] [address] LAB documented in this encounter Visit Diagnoses Diagnosis Examination Other Normal Pregna ncy Third Trimester ([facility]) - Primary Allergy Seasonal Maternal Care For Unspecified Type Scar From Previous Delivery ([facility]) Personal History Intrauterine Growth Res triction High Risk (HCC) With Personal History Preeclam psia Previous ([facility]) Deficiency Vitamin D Body Mass Index 45.0 To 49.9 Adult ([facility]) Depression Anxiety Heartburn Counseling Sterilization documented in this encounter Additional Health Concerns Assessment Noted Time PHQ-9 Depression Total Score: 1 11/16/2012 11:45 AM CS T documented as of this encounter
--- OUTSIDE RECORDS SUMMARY | 2022-07-09 20:41 | XMS_ITS | Encounter Summary ---
:1990 Author Organization [facility] Address [address] [place] [address] Care Team Providers Name Role Phone Unavailable Primary Care Provider Unavailable Encounter Details Date Type Department Care Team Description 06/21/2018 Clinical Communication Department of [place] Obstetrics and [place] Gynecology in [address] [place], [place] [address] [facility] [address] [place], [place] [phone] [address] (Work) [phone] Social History Tobacco Use Types Packs/Day Years [...] or relatives? How often do you attend episcopal or Never 2020 yazidism services? Do you belong to any clubs or No 06/25/2021 organizations such as episcopal groups, unions, fraternal or athletic groups, or [...] place to sleep or slept in a snf (including now)? Sex Assigned at Date Recorded Female 04/12/2018 10:21 PM CDT documented as of this encounter Miscellaneous Notes Telephone Encounter - Hanna Riggins R.N. - 06/23/2018 11:53 AM CDT Barbra was notified. Telephone Encounter - Hanna Riggins R.N. - 06/23/2018 9:30 AM CDT Left message to call back Telephone Encounter - Diamond Johnson L.P.N. - 06/22/2018 8:25 AM CDT Left message for patient to return call. Telephone Encounter - Lidya Hanson M.D. - 06/21/2018 5:31 PM CDT Please let the patient know that I sent a prescription for Zoloft, 25 mg tablets, to take with the 50 mg tablets so that we are increasing her dose based upon her mood symptoms that she reported to Melonie. documented in this encounter Plan of Treatment Not on filedocumented as of this encounter Visit Diagnoses Not on filedocumented in this encounter Additional Health Concerns Assessment Noted Time PHQ-9 Depression Total Score: 1 11/16/2012 11:45 AM CS T documented as of this encounter
--- OUTSIDE RECORDS SUMMARY | 2022-07-09 20:41 | XMS_ITS | Encounter Summary ---
:1990 Author Organization [facility] Address [address] [place] [address] Care Team Providers Name Role Phone Unavailable Primary Care Provider Unavailable Encounter Details Date Type Department Care Team Description 07/19/2018 Hospital Encounter Department of Dana Hanson Other Normal First Trimester; Laboratory Medicine Ramonita Bose With Personal History Preeclam psia Previous in [place], [address] [place] [phone] Social History Tobacco Use Types Packs/Day Years [...] or relatives? How often do you attend restorationist or Never 2020 mosque services? Do you belong to any clubs or No 06/25/2021 organizations such as restorationist groups, unions, fraternal or athletic groups, or [...] by 90 tablet 3 03/24/2018 03/24/20 19 uqzyzyi-rpxkxesh-vksz mouth daily. fumarate-FA (VINATE M) 27-1 mg [...] Date/Time Associated Diagnosis Comme nts URINALYSIS, Routine 07/19/2018 3:56 PM Examination R esults for this DIPSTICK CDT Other Normal procedure are i n First the results Trimester section. With Personal History Preeclampsia Previous documented in this encounter Results Urinalysis, Dipstick (07/19/2018 3:56 PM CDT) P athologist Signature Source Midstream 07/19/2018 [facility] 4:03 PM [facility] Clarity Clear Clear 07/19/2018 [facility] 4:03 PM [facility] Color Yellow 07/19/2018 [facility] 4:03 PM [facility] Comment: ----REFERENCE VALUE---- Colorless Yellow Jaimee Blood Negative Negative 07/19/2018 4:03 PM T [facility] [place] [facility] Nitrite Negative Negative 07/19/2018 4:03 PM CDT [facility] Leukocyte Esterase Negative Negative 07/19/2018 4:03 PM CD T [facility] [place] [facility] Protein Negative mg/dL 07/19/2018 4:03 PM CDT [facility] [place] [facility] Comment: ----REFERENCE VALUE---- Negative Trace Glucose Negative Negative mg/dL 07/19/2018 4:03 PM [facility] [place] [facility] Ketones, QI(U) Negative Negative mg/dL 07/19/2018 4:03 PM [facility] Bilirubin Negative Negative 07/19/2018 4:03 PM [facility] pH 6.0 5.0 - 8.0 07/19/2018 4:03 PM [facility] [place] [facility] Specific [place] 1.025 1.001 - 1.035 07/19/2018 4:03 PM [facility] Urobilinogen 0.2 0.2 - 1.0 mg/dL 07/19/2018 4:03 PM [facility] Specimen Anatomical Collection Method Collection Time Receive d Time (Source) Location / / Volume Laterality Urine (Urine, 07/19/2018 3:56 PM 07/19/20 18 3:56 Clean Catch) CDT PM CDT Lidya Hanson M.D. LAB URINE ORDERABLES Performing Organization Address City/State/ZIP Code Phon e Number [facility] [address] [facility] [place] [address] [place] [facility] [address] [facility] [place] [address], [facility] [place] [facility] documented in this encounter Visit Diagnoses Diagnosis Examination Other Normal Pregna ncy First Trimester (HCC) With Personal History Preeclam psia Previous (HCC) documented in this encounter Additional Health Concerns Assessment Noted Time PHQ-9 Depression Total Score: 1 11/16/2012 11:45 AM CS T documented as of this encounter
--- OUTSIDE RECORDS SUMMARY | 2022-07-09 20:41 | XMS_ITS | Encounter Summary ---
:1990 Author Organization [facility] Address [address] [place] [address] Care Team Providers Name Role Phone Unavailable Primary Care Provider Unavailable Reason for Visit Reason Comments Routine Visit 32 weeks Patient Education Third trimester OB educaiton Encounter Details Date Type Department Care Team Description 10/12/2018 Routine Department of Chente Hanson M.D. [address], [place] [address] Examination Obstetrics and Vivien Burns, RJoshua [address] [place] [phone] Other Normal Gynecology in [place], [place] Trimester [address] [place] [address] Social History Tobacco Use Types Packs/Day Years [...] or relatives? How often do you attend restoration or Never 2020 uatsdin services? Do you belong to any clubs or No 06/25/2021 organizations such as restoration groups, unions, fraternal or athletic groups, or [...] Sign Reading Time Taken Comments Blood Pressure 118/64 10/12/2018 2:27 PM DISTRICT ADMINISTRATOR Pulse - - Temperature - - Respiratory Rate - - Oxygen Saturation - - Inhaled Oxygen Concentration - - Weight 108 kg (238 lb 1.6 oz) 10/12/2018 2:27 PM DISTRICT ADMINISTRATOR Height - - Body Mass Index 48.65 04/14/2018 11:36 AM CDT documented in this encounter Progress Notes Vivien Burns R.N. - 10/12/2018 2:30 PM CST S: Patient states she is feeling ok. She has had cramping, has had nausea, has had vomiting, has nothad any vaginal bleeding or leaking of fluid. Has had irregular contractions for the past couple days. She presented to [facility] on 10/10 and was discharged home with reassurance. She stated movement is present and active. She stated her nausea and vomiting has gotten better. She is able to tolerate oral intake at this time. She stated she feels a lot of pressure when going to the bathroom. She stated that she has to push hard when she urinates or has a BM. She stated that it is hard for her to have a BM. She states that she is only going in small amounts. She also reports a mild headache that is bothersome to her at times. She also reports that she is very tired. REVIEW OF SYSTEMS: General: No fever, chills, fatigue, unintentional weight loss, or weight gain HEENT: No sore throat, nasal congestion, changes in vision or changes in hearing Cardiovascular: No chest pain, irregular heartbeat or racing heart Respiratory: No shortness of breath, cough, or wheezing Gastrointestinal: No nausea, vomiting, diarrhea, constipation or abdominal pain Genitourinary: No leaking urine, pain with urination, burning with urination, irregular vaginal bleeding, heavy periods, painful periods, abnormal vaginal discharge or leaking gas or stool Skin: No rashes or skin lesions Breasts: No masses or lumps, positive for discharge from the nipples Neuro: No difficulty with memory, numbness, tingling, or falls Psych: No anxiety, depression or difficulty sleeping Endocrine: No excessive thirst, hair loss, intolerance of heat or cold A/P: 28 y.o. at 32w0d who presents for OB follow up and third trimester OB education. 1.) 28 week labs were ordered and obtained today. We will contact her with results. 2.) TDAP was administered on 09/23. 3.) Depression screening was completed and her EPDS score was 3 today, which is normal. She stated that her mood is stable on current regimn. She will contact us with any worsening mood concerns. 4.) movement monitoring, labor signs, signs and symptoms of preeclampsia, postterm counseling,and depression were all discussed in detail. 5.) Anesthesia plans discussed. She is planning on spinal for a repeat c- section. This procedure wasreviewed today. Non-medication pain relief options were also discussed in detail. She is needing to transfer care to [place], Dr. Her, due to needing a echo 24-48 hours after delivery. Referral was faxed today and requested they call her to schedule an appt in 2 weeks to transfer care. Patient agrees with plan. 6.) education was discussed in detail, including safe sleeping positions/ SIDS, medications, and screening. [place] provider is on- call provider. She is having a boy. She is not planning oh having him circumcised. She is planning to breastfeed. Signs and symptoms of mastitis were also reviewed. 7.) family planning was reviewed and she is planning on sterilization. She stated she does not want any other children. Tubal consent form was signed. She was encouraged to discuss this withDr. Her at her first appt to get this set up with her . 8.) Has had irregular contractions for the past couple days. She presented [facility]10 and was discharged home with reassurance. She stated she feels a lot of pressure when going to the bathroom. She stated that she has to push hard when she urinates or has a BM. Due to these complaints, Dr. James was asked to check her cervix for reassurance. Cervix was closed, 60 % effaced, soft, and posterior. station was -3. Reassurance was given. 9.) She stated that it is hard for her to have a BM. She states that she is only going in small amounts. OTC medications were reviewed. She was encouraged to try these recommendations and let us know if her symptoms worsen. Third trimester education provided today using the ACOG list of recommended antepartum education topics and in accordance with [facility] guidelines. Patient states understanding to all topics presented. All questions answered during appointment. Written information regarding topics presented provided for patient to take home. Please see education tab for further details about topics addressed. RICT ADMINISTRATOR documented in this encounter Plan of Treatment Not on filedocumented as of this encounter Visit Diagnoses Diagnosis Examination Other Normal Pregna ncy Third Trimester (HCC) documented in this encounter Additional Health Concerns Assessment Noted Time PHQ-9 Depression Total Score: 1 11/16/2012 11:45 AM CS T documented as of this encounter
--- OUTSIDE RECORDS SUMMARY | 2022-07-09 20:41 | XMS_ITS | Encounter Summary ---
:1990 Author Organization [facility] Address [address] [place] [address] Care Team Providers Name Role Phone Unavailable Primary Care Provider Unavailable Reason for Visit Reason Onset Date Comments Problem 08/25/2018 Encounter Details Date Type Department Care Team Description 08/25/2018 Clinical Communication Department of Katia Hanson Problem Obstetrics and Lidya, Gynecology in [place], [place] [address] [place] [phone] Social History Tobacco Use Types Packs/Day Years [...] do you attend christianity or Never 2020 holiness services? Do you [...] place to sleep or slept in a chcf (including now)? Sex Assigned at Date Recorded Female 04/12/2018 10:21 PM CDT documented as of this encounter Miscellaneous Notes Telephone Encounter - Diamond Johnson L.P.N. - 08/26/2018 11:36 AM CORPORATE STRATEGY ASSOCIATE Please call Barbra and get her scheduled on Wednesday at 11 am with [address] Hanson. ORATE STRATEGY ASSOCIATE Telephone Encounter - Lidya Hanson M.D. - 08/26/2018 11:10 AM CORPORATE STRATEGY ASSOCIATE Barbra was seen at the Center last evening. She was not having contractions, NST was reactive,and she was discharged to home. I would like to see her back for follow-up on Wednesday. Pleasecontact her and make sure an appointment is scheduled. ORATE STRATEGY ASSOCIATE Telephone Encounter - Vivien Burns R.N. - 08/25/2018 4:20 PM CST Barbra Medina is a 28 y.o. patient of . She is 25w1d today, and a . Her Blood type is O Positive. Next OB appt is 09/02. She calls in to clinic today with concerns of nausea, constant cramping and pelvic pressure. She stated that this started this morning and it has been constant. Denies VB or LOF. Denies fever. She stated that she has hardly ate or drank anything today due to the nausea. She also stated that she is under a lot of stress, her mom just had a stoke, which she thought could also be contributing to her symptoms. She also complained of urinary frequency. Lastly, she stated that movement has been lesstoday than others. She was advised to present to [facility] for evaluation. Patient agrees with plan. [facility] notified. ORATE STRATEGY ASSOCIATE Telephone Encounter - Vivien Burns RJoshua - 08/25/2018 4:04 PM CST Left message for patient to return our call. ORATE STRATEGY ASSOCIATE Telephone Encounter - Twila Gilbert - 08/25/2018 3:22 PM CST Reason for Communication: Patient is feeling nauseous and has abdominal pain. She is approx 25 weeks. Current Can Nursing/Provider leave a detailed message: Yes Action Needed: Please call her back to discuss this. Name of Medication (if relevant): ORATE STRATEGY ASSOCIATE documented in this encounter Plan of Treatment Not on filedocumented as of this encounter Visit Diagnoses Not on filedocumented in this encounter Additional Health Concerns Assessment Noted Time PHQ-9 Depression Total Score: 1 11/16/2012 11:45 AM CS T documented as of this encounter
--- OUTSIDE RECORDS SUMMARY | 2022-07-09 20:41 | XMS_ITS | Encounter Summary ---
:1990 Author Organization [facility] Address [address] [place] [address] Care Team Providers Name Role Phone Unavailable Primary Care Provider Unavailable Reason for Visit Outpatient (Routine) - Canceled Specialty Diagnoses / Procedures Referred By Contact Refer red To Contact Obstetrics and ROSENDO Hanson DON reveles Gynecology [place] [address] [place] [address] Referral ID Status Reason Start Date Expiration Date Visits V isits Requested Authorized [id number] Canceled 07/08/2018 07/08/2019 1 1 Encounter Details Date Type Department Care Team Description 08/05/2018 Routine Department of Beltran Hanson Other Normal Second Trimester (Primary Dx); Obstetrics and [place] Maternal Care For Unspecified Type Scar From Previous Delivery; Gynecology in [address] Allergy Season al; [facility] Abnormal Ultrasound ; [address] [place], [place] With Personal Hist ory Preeclampsia Previous ; [place] [address] Personal History 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 How often do you attend hindu or Never 2020 jewish services? Do you belong to any clubs or No 06/25/2021 organizations such as hindu groups, unions, fraternal or athletic groups, or [...] Sign Reading Time Taken Comments Blood Pressure 110/64 08/05/2018 1:53 PM AIRCRAFT PAINTER Pulse - - Temperature - - Respiratory Rate - - Oxygen Saturation - - Inhaled Oxygen Concentration - - Weight 104 kg (228 lb 15.2 oz) 08/05/2018 1:53 PM AIRCRAFT PAINTER Height - - Body Mass Index 46.78 04/14/2018 11:36 AM CDT documented in this encounter Progress Notes Lidya Hanson M.D. - 08/05/2018 2:15 PM CST S: She reports that the pain near her incision has improved significantly after the area was injected by Dr. Tripathi in PM&R. 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 No other anatomic anomalies were noted, but the views of the heart, feet, and spine were suboptimal. She underwent maternal serum screen and repeat US. Maternal serum screen returned normal. Cardiac views were limited on repeat US so she will be going to [place] for cardiac echo. She feels like her legs are very swollen. She also continues to have social stressors, such as their firmness not working currently. Overall, however, she feels that her mood is improved. She also reports occasional contractions but none that are regular or painful. REVIEW OF SYSTEMS: General: No fever, chills, fatigue, unintentional weight loss, or weight gain HEENT: No sore throat, nasal congestion, changes in vision or changes in hearing Cardiovascular: No chest pain, irregular heartbeat or racing heart Respiratory: No shortness of breath, cough, or wheezing Gastrointestinal: No nausea, vomiting, diarrhea, constipation, or abdominal pain Genitourinary: No leaking urine, pain with urination, burning with urination, irregular vaginal bleeding, heavy periods, painful periods, abnormal vaginal discharge or leaking gas or stool Skin: No rashes or skin lesions Breasts: No masses or lumps, or discharge from the nipples Neuro: No difficulty with memory, numbness, tingling, or falls Psych: + anxiety, depression, and difficulty sleeping Endocrine: No hair loss, + intolerance of heat and cold, and excessive thirst O: EXTREMITIES: Lower extremities nontender. No edema. IMPRESSION/PLAN 27 y.o. at 22w2d by 6+1 week ultrasound who presents for [...] at the time of the last visit. It is 12 today. She has a lot of stressors that contribute to her mood symptoms, but overall she feels like she is doing much better from a mood standpoint.??She has been on Effexor 150 mg daily [...] vitamin D3 800 international units. 9. Heartburn: Improved with Zantac 150 mg bid. 10. 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 cardiac anatomy,spine anatomy, and feet were not able to be visualized well at the time of level 2 ultrasound. Repeat ultrasound to evaluate those structures was also limited with suboptimal views of the heart. Therefore, cardiac echo has been ordered. Maternal serum screen returned normal. 12. Low abdominal pain at her Pfannenstiel skin incision site: This was likely due to scar tissue and stretching of the tissue related to her gravid abdomen. She was seen by Dr. Tripathi in physical medicine rehab for injections near her incision which as help a lot with this pain. 13. Follow-up: In 1 month for OBFU and with [facility] for repeat US and cardiac echo as scheduled. 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
--- OUTSIDE RECORDS SUMMARY | 2022-07-09 20:41 | XMS_ITS | Encounter Summary ---
:1990 Author Organization [facility] Address [address] [place] [address] Care Team Providers Name Role Phone Unavailable Primary Care Provider Unavailable Encounter Details Date Type Department Care Team Description 07/18/2018 Clinical Communication Department of [facility], [facility], [facility] [address] [place], [place] [address] [place] [address] [facility] [phone] Social History Tobacco Use Types Packs/Day Years [...] or relatives? How often do you attend roman catholic or Never 2020 jew services? Do you belong to any clubs or No 06/25/2021 organizations such as roman catholic groups, unions, fraternal or athletic groups, or [...] Telephone Encounter - Hanna Riggins R.N. - 07/18/2018 4:33 PM CDT Notified of recommendations. She will also try using some tylenol for discomfort. Telephone Encounter - Lidya Hanson M.D. - 07/18/2018 4:23 PM CDT She mentioned this to me at the time of her last visit and was seen and evaluated at the Center recently for the same issue. This is likely stretching and pain from scar tissue at her prior abdominal incision site. An appointment tomorrow is appropriate. Telephone Encounter - Hanna Riggins R.N. - 07/18/2018 4:16 PM CDT Barbra is 19 5/7 week gestation. She has had 4 (last being 03/2016). She states that she ishaving real bad pain at scar area going to umbilicus with any movement. She states it is very difficult to get comfortable. We did discuss round ligament pain, but wanted to run this past you as wellas Barbra states that she had classical . Her next OB appointment is scheduled for tomorrow. Thanks Telephone Encounter - Sue Duggan - 07/18/2018 3:56 PM CDT Patient calling in. She states that her scare area has been hurting. She does not know if this is from the inside or on the outside. She states that this is unbearable at times and starts to cry. She would like to speak to a nurse mayra. Please advise and call back at [phone] documented in this encounter Plan of Treatment Not on filedocumented as of this encounter Visit Diagnoses Not on filedocumented in this encounter Additional Health Concerns Assessment Noted Time PHQ-9 Depression Total Score: 1 11/16/2012 11:45 AM CS T documented as of this encounter
--- OUTSIDE RECORDS SUMMARY | 2022-07-09 20:41 | XMS_ITS | Encounter Summary ---
:1990 Author Organization [facility] Address [address] [place] [address] Care Team Providers Name Role Phone Unavailable Primary Care Provider Unavailable Reason for Visit Reason Comments Abdominal Pain Outpatient (Routine) - Closed Specialty Diagnoses / Procedures Referred By Contact Refer red To Contact Physical Medicine and Diagnoses Pain Generalized Abdominal Examination Other Normal Second Trimester (HCC) ROSENDO Hanson [facility] [place] [address] [place] [address] Referral ID Status Reason Start Date Expiration Date Visits Requ ested Visits Authorized [id number] Closed 07/19/2018 07/19/2019 1 1 Encounter Details Date Type Department Care Team Description 07/28/2018 Comprehensive Visit Department of Physical Alfaro, Pain Abdominal Wall (Primary Dx); Medicine and Susie F, Pain Generalize d Abdominal; Rehabilitation in [place] Examination Other Normal Pregna ncy Second Trimester [place], [place] [address] [place] [id number] Social History Tobacco Use Types Packs/Day [...] or relatives? How often do you attend yarsani or Never 2020 anabaptist services? Do you belong to any clubs or No 06/25/2021 organizations such as yarsani groups, unions, fraternal or athletic groups, or [...] PM CDT documented as of this encounter Patient Instructions Patient InstructionsSusie Alfaro M.D. - 07/28/2018 4:15 PM CDT Images from the original note were not included. Patient Education Care After Your Steroid Injection Follow these instructions after your steroid injection. If you have questions, talk with your healthcare provider. Diet Continue with your usual diet, unless you are told otherwise. Bathing You may shower. Do not soak in a bath tub or use a hot tub, whirlpool, or sauna for the first 48 hours. Procedure site dressing(s) Remove your adhesive bandage(s) before showering. Side effects The following conditions may begin within one hour of the procedure and last up to four hours: ?? Numbness, tingling or weakness in your arms, legs or both. ?? Difficulty urinating or leaking urine. ?? Dizziness or light-headedness. If these conditions last longer than four hours, contact a member of your health care team as you were told. For a few days after your injection, you may have: ?Hot flashes?? and a red, flushed look on your face. ?? Difficulty sleeping and/or feel very alert or ???revved up.? Both positive and negative moods (mood swings). Activity Do not drive today. Do not provide care for anyone who depends on your help. After the first day, ease back into doing your daily activities. Fall prevention (for injections in the spine or legs) For several hours after the injection, it is easier to fall and hurt yourself because your legs may feel numb, clumsy, weak and unsteady. Falling could cause you to break a bone or have a serious back injury. To help keep from falling: ?? Be careful when you step on and off curbs, climb stairs and walk. ?? Remove any clutter and rugs from your floors, especially in the walkways. ?? Wear shoes with low heels until your legs feel steady again. Pain After four to six hours, the local anesthetic will wear off and your usual pain will return for a few days until you feel the anti-inflammatory effect of the steroid. It is possible for the pain to feel worse before it begins to feel better. Your procedure site(s) may feel sore for one to two days. It may be about two weeks after the procedure before you feel the greatest pain relief. For mild discomfort related to your procedure site(s), apply an ice pack covered in a soft cloth to the site(s) for 15 to 20 minutes during the first 24 hours. Repeat every four to six hours, as needed. Do not use a heating pad or any form of heat on the procedure site(s) for the first 48 hours. Medications Take your regular medications, unless you are told otherwise by your health care provider. For pain relief, take prescription pain medication or acetaminophen (Tylenol???) in the recommended dose according to package instructions. If you take blood-thinning medication Blood-thinning medications affect clotting and bleeding. If your blood-thinning medications were stopped before your procedure, both the health care provider who manages these medications and the provider who performed your procedure will need to decide when to restart these medications. If you have diabetes Your blood glucose will rise for a few days after your steroid injection(s). Monitor your blood glucose as instructed by the health care provider managing your diabetes. If your blood glucose is higher than your usual range, or if you have any questions or concerns, contact the health care provider managing your diabetes. Illness not related to injection If you become ill, have an injury or need surgery after you have the injection, tell your health care provider you had a cortisone injection. When to get medical care Contact a member of your health care team as you were told if you have: ?? A temperature of 100.4 degrees Fahrenheit (38 degrees Celsius) or higher. ?? Chills. ?? A procedure site that becomes red, swollen, tender, or warm. ?? Unusual drainage, color or odor from a procedure site. ?? Increasing pain or tenderness at a procedure site that cannot be relieved with pain medication. ?? A change in the color or temperature of your arms or legs. ?? Questions or concerns. Have someone take you to the nearest emergency center (do not drive yourself), or call 911 or your local emergency number if you have: ?? Bleeding that does not stop after you put ice on the area for 10 minutes. ?? Signs of an allergic reaction: ?? Rash. ?? Swelling in your throat. ?? Difficulty with swallowing. ?? Wheezing or difficulty with breathing. Monitoring your pain It is important to know the amount and duration of pain you have after your procedure. A care senior engineering team leader may call you within two weeks after your procedure to see if you have any questions or concernsand to ask about your pain. Be prepared to answer the following questions: ?? Did your pain improve? ?? If so, how much did your pain improve? ?? For how long did your relief last? You may be asked to rate your pain on a scale of 0 to 10, or another scale as appropriate. Zero means you have no pain, 5 means you have a moderate amount of pain, and 10 is the worst pain you have ever had. This material is for your education and information only. This content does not replace medical advice, diagnosis or treatment. New medical research may change this information. If you have questions about a medical condition, always talk with your health care provider. ? 2017 [facility] [employer] ([employer]). All rights reserved. [id number] documented in this encounter Procedure Notes Susie Alfaro M.D. - 07/28/2018 4:15 PM CDTAssociated Order(s): PMR TRIGGER POINT INJECTION (PROCEDURE ONLY) Post-Procedure Diagnose(s): Pain Abdominal Wall Ultrasound-guided, diagnostic and therapeutic, bilateral lower quadrant (inferior rectus abdominis and linea alba) abdominal wall trigger point injections Date/Time: 07/28/2018 4:59 PM Performed by: SUSIE ALFARO Authorized by: SUSIE ALFARO Care team members present: PMR nurse Indication: Bilateral abdominal wall pain, 2nd trimester Soft tissue site: Right abdominal wall and Left abdominal wall Abdominal wall: Bilateral inferior rectus abdominis muscles, linea alba Procedure details: Abdominal wall position: supine Preparation: Patient was prepped and draped in usual sterile fashion Needle size: 25 G Needle length: 2.5 in Ultrasound guidance?: Yes Ultrasound probe (MHz): Linear mid-frequency Needle visualization: In-plane Needle approach: Lateral to medial Injected medications: The injected medication(s) listed was divided equally between the identified injection location(s) Injected medications: 4 mL bupivacaine 0.25 % (2.5 mg/mL) 40 mg methylPREDNISolone acetate 40 mg/mL Three or more muscles: No Post-procedure details: Abdominal wall procedure description: The patient was placed in the appropriate position. Prior to the procedure, the appropriate abdominal wall region was examined to determine the location of the trigger point(s) and optimal needle path. Thereafter, a needle was advanced into the trigger point(s) and after negative aspiration, the medication was injected. Following the injection, the needle was withdrawn. The patient tolerated the procedure well and there were no apparent complications. After an appropriate amount of observation, the patient was dismissed from the clinic in good condition under their own power. Complications: no apparent complications Consent: Consent obtained: Verbal and written Consent given by: Patient The benefits, risks and alternatives to the procedure and the potential need for sedation or anesthesia as well as the names, roles, and responsibilities of healthcare team members performing significant interventional tasks were discussed with the patient and/or decision maker: yes [place] protocol: All relevant documentation and testing were reviewed and available. All required blood products, implants, devices and/or special equipment were made available as applicable. The pre-procedure verification was conducted, the correct site was marked if required, and the procedural time out was conducted prior to performing the procedure and confirmed in a procedural pause: yes Pre-procedure details: Appropriate hand hygiene, gown, cap, mask, protective eyewear, sterile gloves, skin preparation, sterile drape, and strict aseptic technique were utilized as applicable for the procedure.: yes Skin preparation: Chlorhexidine documented in this encounter Plan of Treatment Not on filedocumented as of this encounter Procedures Procedure Name Priority Date/Time Associated Diagnosis Comme nts PMR TRIGGER POINT Routine 07/28/2018 4:15 PM Pain Abdominal Wa ll Results for this INJECTION CDT procedure are i n (PROCEDURE ONLY) the results section. documented in this encounter Results PMR Trigger Point Injection (Procedure Only) (07/28/2018 4:15 PM CDT) Narrative [facility] - 07/28/2018 4:15 PM CDT Susie Alfaro M.D. ? 07/28/2018 10:01 PM Ultrasound-guided, diagnostic and therap eutic, bilateral lower quadrant (inferior rectus abdominis and linea alb a) abdominal wall trigger point injections Date/Time: 07/28/2018 4:59 PM Performed by: SUSIE ALFARO Authorized by: SUSIE ALFARO Care team members present: ??PMR nurse ?Indication: Bilateral abdominal wall pain, 2nd trimester ??Soft tissue site: ??Right abdominal w all and Left abdominal wall ??Abdominal wall: ??Bilateral inferior rectus abdominis muscles, linea alba Procedure details: ??Abdominal wall position: supine ??Preparation: Patient was prepped and draped in usual sterile fashion ?Needle size: ??25 G ??Needle length: ??2.5 in ??Ultrasound guidance?: Yes ?Ultrasound probe (MHz): ??Linear mid- frequency ??Needle visualization: ??In-plane ??Needle approach: ??Lateral to medial ??Injected medications: The injected me dication(s) listed was divided equally between the identified injection location(s) ?? Injected medications: ?4 mL bupivacaine 0.25 % (2.5 mg/mL) ??40 mg methylPREDNISolone acetate 40 m g/mL ??Three or more muscles: No ?? Post-procedure details: ??Abdominal wall procedure description: The patient was placed in the appropriate position. Prior to the proce dure, the appropriate abdominal wall region was examined to determine th e location of the trigger point(s) and optimal needle path. Thereafter, a n eedle was advanced into the trigger point(s) and after negative aspi ration, the medication was injected. Following the injection, the n eedle was withdrawn. ??The patient tolerated the procedure well and there w ere no apparent complications. ?? After an appropriate amount of observati on, the patient was dismissed from the clinic in good condition under their own power. ?Complications: no apparent complicati ons ?? Consent: ??Consent obtained: ??Verbal and writte n ??Consent given by: ??Patient ??The benefits, risks and alternatives to the procedure and the potential need for sedation or anesthesia as well as the names, roles, and responsibilities of healthcare team memb ers performing significant interventional tasks were discussed with the patient and/or decision maker: yes ?? [place] protocol: ??All relevant documentation and testin g were reviewed and available. All required blood products, implants, devic es and/or special equipment were made available as applicable. The pre-pr ocedure verification was conducted, the correct site was marked i f required, and the procedural time out was conducted prior to performi ng the procedure and confirmed in a procedural pause: yes ?? Pre-procedure details: ??Appropriate hand hygiene, gown, cap, mask, protective eyewear, sterile gloves, skin preparation, sterile drape, and strict aseptic technique were utilized as applicable for the procedure .: yes ?Skin preparation: ??Chlorhexidine Susie Alfaro M.D. PROCEDURE/MINOR SURGICAL ORD ERABLES Performing Organization Address City/State/ZIP Code Phon e Number MMODAL MM[facility]AL NA documented in this encounter Visit Diagnoses Diagnosis Pain Abdominal Wall - Primary Pain Generalized Abdominal Examination Other Normal Pregna ncy Second Trimester (HCC) documented in this encounter Administered Medications Inactive Administered Medications - up to 3 most recent administrations Medication Order MAR Action Action Date Dose Rate Site bupivacaine 0.25 % (2.5 mg/mL) Given 07/28/2018 4:59 PM CDT 4 mL injection 4 mL (MARCAINE) 4 mL, injection, One-Time, Starting on Ene 07/28/18 at 1659, For 1 dose methylPREDNISolone acetate injection 40 mg Given 07/28/2018 4:59 PM CDT 40 mg (DEPO-Medrol) 40 mg, injection, One-Time, Starting on Ene 07/28/18 at 1659, For 1 dose documented in this encounter Additional Health Concerns Assessment Noted Time PHQ-9 Depression Total Score: 1 11/16/2012 11:45 AM CS T documented as of this encounter
--- OUTSIDE RECORDS SUMMARY | 2022-07-09 20:41 | XMS_ITS | Encounter Summary ---
:1990 Author Organization [facility] Address [address] [place] [address] Care Team Providers Name Role Phone Unavailable Primary Care Provider Unavailable Encounter Details Date Type Department Care Team Description 05/27/2020 Clinical Communication Department of [facility] and [place] [facility] in [address] [place], [place] [address] [facility] [address] [place], [place] [phone] (Work) [phone] Social History Tobacco Use Types Packs/Day Years [...] do you attend hindu or Never 2020 spiritism services? Do you belong to any clubs [...] this encounter Miscellaneous Notes Telephone Encounter - Newton Dhaliwal - 05/27/2020 4:26 PM CDT ([facility] and [place] [facility] locations only: If the patient is not having symptoms and is requesting COVID-19 Nasal Swab testing only, use the process listed in the COVID-19 Patient Requesting COVID PCR Test OTG COVID-19 [place] Patient Requesting COVID PCR Test). 1. Do you have a pending COVID test because you had symptoms or exposure to someone with COVID or you have tested positive for COVID in the last 30 days? no 2. In the past 14 days, do you, anyone in the household, or anyone you have had prolonged exposure have any of the following? a. Fever greater than or equal to 37.8 C (100.0 F)? no b. New symptoms (Specifically: headache, cough, shortness of breath, respiratory distress, sore throat, diarrhea, nausea, vomiting, chills and repeated shaking with chills, myalgia's (muscle aches), loss of smell, or change or loss of taste sensation)? no Route reply to: Scheduling Contact Number: [phone] documented in this encounter Plan of Treatment Not on filedocumented as of this encounter Visit Diagnoses Not on filedocumented in this encounter Additional Health Concerns Assessment Noted Time PHQ-9 Depression Total Score: 1 11/16/2012 11:45 AM CS T documented as of this encounter
--- OUTSIDE RECORDS SUMMARY | 2022-07-09 20:41 | XMS_ITS | Encounter Summary ---
:1990 Author Organization [facility] Address [address] [place] [address] Care Team Providers Name Role Phone Unavailable Primary Care Provider Unavailable Encounter Details Date Type Department Care Team Description 07/28/2018 Ancillary Procedure Department of Physical Medicine and Rehab Social History Tobacco Use Types Packs/Day Years [...] do you attend druze or Never 2020 islam services? Do you [...] Name Priority Date/Time Associated Diagnosis Comme nts PHYSICAL MEDICINE Routine 07/28/2018 5:05 PM Resu lts for this AND REHAB IMAGE CDT procedure ar e in EXAM the results section. documented in this encounter Results PHYSICAL MEDICINE AND REHAB IMAGE EXAM (07/28/2018 5:05 PM CDT) Specimen (Source) Anatomical Location Collection Method / Collectio n Time Received Time / Laterality Volume Narrative [facility] - 07/28/2018 10:12 PM CDT This order has been created and auto-finalized to support the import of images acquired without order. The clini german documentation to support these images can be found on the encounter tim t produced images. Provider Not In System IMG NON RAD IMAGING PROCEDUR ES Performing Organization Address City/State/ZIP Code Phon e Number IIMS I[facility] NA documented in this encounter Visit Diagnoses Not on filedocumented in this encounter Additional Health Concerns Assessment Noted Time PHQ-9 Depression Total Score: 1 11/16/2012 11:45 AM CS T documented as of this encounter
--- OUTSIDE RECORDS SUMMARY | 2022-07-09 20:41 | XMS_ITS | Encounter Summary ---
:1990 Author Organization [facility] Address [address] [place] [address] Care Team Providers Name Role Phone Unavailable Primary Care Provider Unavailable Reason for Referral Outpatient (Routine) - Closed Specialty Diagnoses / Procedures Referred By Contact Refer red To Contact Obstetrics and Diagnoses Menstrual Irregularity ROSENDO Hanson [facility] [place] [address] [place] [phone] Referral ID Status Reason Start Date Expiration Date Visits Requ ested Visits Authorized [id number] Closed 06/18/2020 06/18/2021 1 1 Scheduling Instructions Schedule 15 minute visit Outpatient (Routine) - Closed Specialty Diagnoses / Procedures Referred By Contact Refer porsha To Contact Diagnoses Dysmenorrhea Lidya Hanson [facility] Procedures US Pelvis Transvaginal and Transabdominal [place] [address] [place] [phone] Referral ID Status Reason Start Date Expiration Date Visits Requ ested Visits Authorized [id number] Closed 06/18/2020 06/18/2021 1 1 Reason for Visit Reason Comments Endometriosis painful periods and heavy cy cles Appointment Request (Routine) - Closed Specialty Diagnoses / Procedures Referred By Contact Refer red To Contact Obstetrics and Gynecology Referral ID Status Reason Start Date Expiration Date Visits Requ ested Visits Authorized [id number] Closed 05/27/2020 05/27/2021 1 1 Encounter Details Date Type Department Care Team Description 06/18/2020 Office Visit Department of Valentin, Endometriosis (Primary Dx); Obstetrics and [place] Menstrual Irregularity; Gynecology in [address] Dysmenorrhea; [place], [place] Morbid Severe Obesity Due To Excess Calories ([facility]) [address] [facility] [address] [place], [place] [phone] (Work) [phone] Social History Tobacco Use Types Packs/Day Years [...] you attend oriental orthodox or Never 2020 baptist services? Do you [...] Sign Reading Time Taken Comments Blood Pressure 100/68 06/18/2020 3:59 PM CDT Pulse 80 06/18/2020 3:59 PM CDT Temperature - - Respiratory Rate 20 06/18/2020 3:59 PM CDT Oxygen Saturation - - Inhaled Oxygen Concentration - - Weight 108 kg (238 lb 1.6 oz) 06/18/2020 3:59 PM CDT Height - - Body Mass Index 48.65 04/14/2018 11:36 AM CDT documented in this encounter Consult Notes Lidya Hanson M.D. 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 HISTORY OF PRESENT ILLNESS Barbra is a 29 y.o. female who presents in consultation for endometriosis. Barbra underwent excision of a mass within the left lower abdominal wall on 05/15/2020. Per the operative report, Themass was dissected from surrounding tissues using a combination of blunt dissection and electrocautery, and was then sent to pathology for further evaluation. The mass was noted to involve the deep fascia. Pathology returned showing endometriosis. She was sent here to discuss further treatment options. She reports that the pain in this area has improved, though she still has some pain there with mens es, and the mass has resolved. She also complains of irregular menses. Sometimes has 2 periods in a month. The bleeding with menses is sometimes light and will stop and start. She has abnormal hair growth on her lower abdomen. She also has issues with acne. Her periods got heavier after she delivered her last child. She complains of weight gain. The patient's allergies and current medications were reviewed and updated as appropriate. REVIEW OF SYSTEMS: Constitutional: Positive for weight loss of more than 10 pounds. Negative for fatigue, fever and weight gain of more than 10 pounds. Skin: Negative for skin rash, change in mole or skin spot, breast lump and nipple discharge. Eyes: Negative for visual problems. ENT: Negative for difficulty hearing and sinus congestion. Respiratory: Negative for coughing up mucus (phlegm), dry cough, dyspnea and wheezing. Cardiovascular: Negative for chest pain, pressure or tightness and rapid or fluttering heart beat. Gastrointestinal: Negative for abdominal (belly) pain or cramping, constipation, diarrhea, heartburn, nausea and vomiting. Genitourinary: Negative for abnormal vaginal bleeding, incontinence, difficulty urinating, pain withurination and menses change or abnormal. Musculoskeletal: Negative for arthralgias, back pain and pain or stiffness in the joints. Neurological: Positive for headaches. Negative for numbness or shooting pain in hands, arms, legs, or feet and loss of balance or tendency to fall easily. Psychiatric/Behavioral: Positive for sleep disturbance, feeling down, depressed, or hopeless over past two weeks and feeling nervous, anxious, or on edge in past two weeks. The patient's Past Medical History, Past Surgical History, Social History, and Family History were reviewed and updated as appropriate. FLOOR REPRESENTATIVE HISTORY OB History Para Term AB Living 5 4 3 1 4 SAB TAB Ectopic Molar Multiple Live Births 4 # Outcome Date GA Lbr Vu/2nd Weight Sex Delivery Anes PTL Lv 5 4 04/23/16 33w1d 1.03 kg M CS-Classical Spinal N JORJE Complications: Preeclampsia Severe 3 Term 06/20/14 39w0d 2.551 kg F CS-Unspec JORJE 2 Term 12/30/12 39w1d 2.835 kg M CS-Unspec JORJE 1 Term 11/26/09 37w2d 3.005 kg M CS-LTranv JORJE Menarche was at age 9. Menses are heavy sometimes, are painful, and are not regular. She is sexuallyactive and has no issues with intercourse. She uses sterilization for contraception. OBJECTIVE PHYSICAL EXAM Vitals: 06/18/20 1559 BP: 100/68 Pulse: 80 Resp: 20 Weight: 108 kg Exam conducted with a desk representative present. Constitutional General: She is not in acute distress. Appearance: Normal appearance. She is well-developed. Genitourinary: Bladder is not tender. HENT Head: Normocephalic and atraumatic. Eyes General: Vision grossly intact. Cardiovascular Rate and Rhythm: Normal rate and regular rhythm. Heart sounds: No murmur. No friction rub. No gallop. Pulmonary Breath sounds: Normal breath sounds. No wheezing or rales. Abdominal General: A surgical scar is present. Bowel sounds are normal. There is no distension. Palpations: Abdomen is soft. There is no mass. Tenderness: There is no abdominal tenderness. Comments: Pfannenstiel skin incision and recent surgical scar well healed and without evidence of mass or tenderness in the area of recent endometriosis excision. Musculoskeletal General: No tenderness. Right lower leg: She exhibits no tenderness. No edema. Left lower leg: She exhibits no tenderness. No edema. Neurological Mental Status: She is alert and oriented to person, place, and time. Skin General: Skin is warm and dry. Findings: No lesion or rash. Psychiatric Mood and Affect: Mood normal. Behavior: Behavior normal. ASSESSMENT / PLAN 29 y.o. female who presents in consultation for endometriosis . #1 Endometriosis Overview: Mass within anterior abdominal wall involving the fascia excised on 05/15/2020. Discussed need for ovarian suppression to prevent recurrence. Discussed depo lupron to induce medical menopause, followed by supression with OCPs or depo provera. Will work on prior authorization to see if this is an optionfor her. Will discuss further at the time of the next visit. #2 Menstrual Irregularity Overview: Associated with abnormal hair growth, acne, and weight gain. Will check TSH, prolactin, testosteronestudies, SHBG, fasting insulin, 17-hydroxyprogesterone, and day #21 progesterone level to further evaluation. Will also get US between days 5-10 of cycle to further evaluate. Orders: - S-TSH (Thyroid-Stimulating Hormone - Sensitive); Future; Expected date: 06/18/2020 - Testosterone, Total, Bioavailable, and Free; Future; Expected date: 06/18/2020 - Sex Hormone-Binding Globulin (SHBG); Future; Expected date: 06/18/2020 - 17-Hydroxyprogesterone; Future; Expected date: 06/18/2020 - Prolactin; Future; Expected date: 06/18/2020 - Progesterone Level; Future; Expected date: 07/03/2020 - Obstetrics and Gynecology office visit (clinic); Future; Expected date: 07/18/2020 - Insulin; Future; Expected date: 06/26/2020 #3 Dysmenorrhea Overview: Pelvic US to further evaluate. Will recommend ovarian supression due to history of endometriosis. This should help with dysmenorrhea, as well. Orders: - US Pelvis Transvaginal and Transabdominal; Future; Expected date: 06/18/2020 Follow-up: In 1 month to discuss results and determine plan. documented in this encounter Plan of Treatment Scheduled Referrals Name Type Priority Associated Diagnoses Order S jailyndule Obstetrics and Outpatient Referral Routine Menstrual Expect ed: Gynecology office Irregularity 07/18/2020 visit (clinic) (Approximate) , Expires: 06/18/2023 documented as of this encounter Results US Pelvis Transvaginal and [...] 2. Prior section. Lidya ELIZABETH US PROCEDURES (ABNORMAL) Insulin (07/04/2020 3:46 PM CDT) P athologist Signature Insulin, S 25.7 (H) 2.6 - 24.9 07/05/2020 [facility] mcIU/mL 9:10 AM CDT Specimen Anatomical Collection Method Collection Time Receive d Time (Source) Location / / Volume Laterality Blood (Blood, 07/04/2020 3:46 PM 07/05/20 8:25 Venous) CDT AM CDT Lidya Hanson M.D. LAB BLOOD ADD-ON Performing Organization Address City/[facility]/ZIP Code Phon e Number [facility] [address] [place], [place] [address] [facility] [place] [address] Laboratory Medicine and Pathology [address] [place] Progesterone Level (07/04/2020 3:46 PM CDT) athologist Signature Progesterone, S 8.4 See Note* [...] PM 07/05/20 6:43 Venous) CDT AM CDT Authorizing Provider Result Tony Hanson M.D. LAB BLOOD ADD-ON Performing Organization Address City/[facility] Code Phon e Number [facility] - [address] [place], [place] [address] [facility] [place] [address] Laboratories-[facility] [address] Prolactin (06/18/2020 5:16 PM CDT) athologist Signature Prolactin Total 11.0 4.8 - 23.3 06/19/2020 [place] ng/mL 7:16 AM CDT Comment: ----ADDITIONAL INFORMATION---- The testing method is an electrochemilum inescence assay manufactured by [employer] and performed on the Karoline [...] Blood (Blood, 06/18/2020 5:16 PM 06/19/20 20 6:37 Venous) CDT AM CDT Lidya Hanson M.D. LAB BLOOD ADD-ON Performing Organization Address City/[facility] Phon e Number [facility] - [address] [place], [place] [address] [facility] [place] [address] Laboratories-[facility] [address] 17-Hydroxyprogesterone (06/18/2020 5:16 PM CDT) athologist Signature 17-Hydroxyproge <40 ng/dL 06/20/2020 [facility] sterone, S 8:59 PM CDT Comment: ----REFERENCE VALUE---- < 80 (Follicular) <285 (Luteal) ----ADDITIONAL INFORMATION---- This test was developed and its performa nce characteristics determined by [facility] in a manner consistent with CLIA requirements. This test has not been cleared or approved by the [place] and Drug Administration. Specimen Anatomical Collection Method Collection Time Receive d Time (Source) Location / / Volume Laterality Blood (Blood, 06/18/2020 5:16 PM 06/19/20 Venous) CDT 12:14 PM CDT Lidya Hanson M.D. LAB BLOOD NON ADD-ON Performing Organization Address City/[facility] Phon e Number [facility] [address] [place], [place] [address] [facility] [place] [address] Laboratory Medicine and Pathology [address] [place] Sex Hormone-Binding Globulin (SHBG) (06/18/2020 5:16 PM CDT) athologist Signature Sex Hormone 30 18-144 06/19/2020 [facility] Binding (non-pregna 9:42 AM CDT Globulin, S nt) nmol/L Specimen Anatomical Collection Method Collection Time Receive d Time (Source) Location / / Volume Laterality Blood (Blood, 06/18/2020 5:16 PM 06/19/20 20 8:18 Venous) CDT AM CDT Lidya Hanson M.D. LAB BLOOD ADD-ON Performing Organization Address City/State/ZIP Code Phon e Number [facility] [address] [place], [place] [address] [place] [address] [facility] [place] [address] Laboratory Medicine and Pathology [address] [place] Testosterone, Total, Bioavailable, and Free (06/18/2020 5:16 PM CDT) athologist Signature Testosterone, 6.9 ng/dL 06/20/2020 [facility] Bioavailable, S 10:12 PM CDT Comment: ----REFERENCE VALUE---- Females (non-oophorectomized): 0.8-4.0 (On oral estrogen) 0.8-10 (Not on oral estrogen) ----ADDITIONAL INFORMATION---- Testing performed by Differential Precip itation. This test was developed and its performa nce characteristics determined by [facility] in a manner consistent with CLIA requirements. This test has not been cleared or approved by the [place] and Drug Administration. Testosterone, Total by Mass 30 8 - 60 ng/dL 0 8:39 AM CDT [facility] Spectrometry, Serum Comment: ----ADDITIONAL INFORMATION---- Testing performed by Liquid Chromatograp hy-Tandem Mass Spectrometry (LC-MS/MS). This test was developed and its performa nce characteristics determined by [facility] in a manner consistent with CLIA requirements. This test has not been cleared or approved by the [place] and Drug Administration. Testosterone, Free, S 0.69 0.06 - 1.06 ng/dL 06/21/2020 3:54 PM CDT [facility] Comment: ----ADDITIONAL INFORMATION---- Testing performed by Milena Aguilari s. This test was developed and its performa nce characteristics determined by [facility] in a manner consistent with CLIA requirements. This test has not been cleared or approved by the [place] and Drug Administration. Specimen Anatomical Collection Method Collection Time Receive d Time (Source) Location / / Volume Laterality Blood (Blood, 06/18/2020 5:16 PM 09/23/20 20 6:50 Venous) CDT AM CDT Lidya Hanson M.D. LAB BLOOD NON ADD-ON Performing Organization Address City/State/ZIP Code Phon e Number [facility] [address] [place] [address] [place], [place] [address]. [place] [address] Laboratory Medicine and Pathology [address] [place] S-TSH (Thyroid-Stimulating Hormone - Sensitive) (06/18/2020 5:16 PM CDT) athologist Signature TSH, Sensitive 1.4 0.3 - 4.2 06/18/2020 [place] mIU/L 6:21 PM CDT Comment: Biotin has been identified by the best martins as a potential interfering substance. ??Higher concentr ations of biotin may be found in multivitamins, hair/nail supple ments, and workout supplements. ??If the result does not ma tch clinical observations, repeat testing after patient refrains fr om the use of supplements for at least 12 hours. Specimen Anatomical Collection Method Collection Time Receive d Time (Source) Location / / Volume Laterality Blood (Blood, 06/18/2020 5:16 PM 06/18/20 20 6:01 Venous) CDT PM CDT Lidya Hanson M.D. LAB BLOOD ADD-ON Performing Organization Address City/State/ZIP Code Phon e Number [facility]- [address] [place] [address] [place] [address] System in [place] [address] documented in this encounter Visit Diagnoses Diagnosis Endometriosis - Primary Menstrual Irregularity Dysmenorrhea Morbid Severe Obesity Due To Excess Angélica norris (HCC) Dysmenorrhea documented in this encounter Additional Health Concerns Assessment Noted Time PHQ-9 Depression Total Score: 1 11/16/2012 11:45 AM CS T documented as of this encounter
--- OUTSIDE RECORDS SUMMARY | 2022-07-09 20:41 | XMS_ITS | Encounter Summary ---
:1990 Author Organization [facility] Address [address] [place] [address] Care Team Providers Name Role Phone Unavailable Primary Care Provider Unavailable Encounter Details Date Type Department Care Team Description 10/12/2018 Hospital Encounter Department of Dana Hanson ion Other Normal First Trimester; Laboratory Medicine Ramonita Bose With Personal History Preeclam psia Previous in [place], [address] [place] [phone] Social History Tobacco Use Types Packs/Day Years [...] you attend roman catholic or Never 2020 religion services? Do you belong to any clubs [...] by 90 tablet 3 03/24/2018 03/24/20 19 [id number] mouth daily. fumarate-FA (VINATE M) 27-1 mg [...] Date/Time Associated Diagnosis Comme nts URINALYSIS, Routine 10/12/2018 2:08 PM Examination R esults for this DIPSTICK VIDEO SPECIALIST Other Normal procedure are i n First the results Trimester section. With Personal History Preeclampsia Previous documented in this encounter Results (ABNORMAL) Urinalysis, Dipstick (10/12/2018 2:08 PM VIDEO SPECIALIST) athologist Signature Source Midstream 10/12/2018 [facility] 2:[address] [facility] Clarity Cloudy (A) Clear 10/12/2018 [facility] 2:[address] [facility] Color Yellow 10/12/2018 [facility] 2:[address] [facility] Comment: ----REFERENCE VALUE---- Colorless Yellow Jaimee Blood Trace (A) Negative 10/12/2018 2:[address] [facility] Nitrite Negative Negative 10/12/2018 2:16 PM VIDEO SPECIALIST [facility] Leukocyte Esterase Negative Negative 10/12/2018 2:16 PM CS T [facility] B Protein Negative mg/dL 10/12/2018 2:[address] [facility] Comment: ----REFERENCE VALUE---- Negative Trace Glucose Negative Negative mg/dL 10/12/2018 2:16 PM [facility] Ketones, QI(U) Negative Negative mg/dL 10/12/2018 2:16 PM [facility] Bilirubin Negative Negative 10/12/2018 2:16 PM [facility] pH 7.0 5.0 - 8.0 10/12/2018 2:16 PM [facility] Specific David 1.025 1.001 - 1.035 10/12/2018 2:16 PM [facility] Urobilinogen 0.2 0.2 - 1.0 mg/dL 10/12/2018 2:16 PM [facility] [place] Specimen Anatomical Collection Method Collection Time Receive d Time (Source) Location / / Volume Laterality Urine (Urine, 10/12/2018 2:08 PM 10/12/19 19 2:12 Clean Catch) VIDEO SPECIALIST PM [facility] Lidya Hanson M.D. LAB URINE ORDERABLES Performing Organization Address City/State/ZIP Code Phon e Number [facility] [address] [place] [address] LAB documented in this encounter Visit Diagnoses Diagnosis Examination Other Normal Pregna ncy First Trimester (HCC) With Personal History Preeclam psia Previous (HCC) documented in this encounter Additional Health Concerns Assessment Noted Time PHQ-9 Depression Total Score: 1 11/16/2012 11:45 AM CS T documented as of this encounter
--- OUTSIDE RECORDS SUMMARY | 2022-07-09 20:41 | XMS_ITS | Encounter Summary ---
:1990 Author Organization [facility] Address [address] [place] [address] Care Team Providers Name Role Phone Unavailable Primary Care Provider Unavailable Encounter Details Date Type Department Care Team Description 07/20/2018 Clinical Communication Department of Physical Tripathi , Medicine and Siddharth Nesbitt M.D. Rehabilitation in [address] [place], [place] [address] [address] [place] [address] [facility] [phone] Social History Tobacco Use Types Packs/Day Years [...] or relatives? How often do you attend catholic or Never 2020 rastafarian services? Do you belong to any clubs or No 06/25/2021 organizations such as catholic groups, unions, fraternal or athletic groups, [...]
--- OUTSIDE RECORDS SUMMARY | 2022-07-09 20:41 | XMS_ITS | Encounter Summary ---
:1990 Author Organization [facility] Address [address] [place] [address] Care Team Providers Name Role Phone Unavailable Primary Care Provider Unavailable Encounter Details Date Type Department Care Team Description 08/05/2018 Hospital Encounter Department of Dana Hanson ion Other Normal First Trimester; Laboratory Medicine Ramonita Bose With Personal History Preeclam psia Previous in [place], [address] [place] [phone] Social History Tobacco Use Types Packs/Day Years [...] do you attend mandaen or Never 2020 advent services? Do you [...] Sig Dispensed Refills Start Date End Date ondansetron (ZOFRAN) 4 mg Take 4 mg by mouth 0 tablet daily. cetirizine (ZyrTEC) 10 mg Take 1 tablet (10 30 tablet 11 05/27/2019 tablet mg total) by mouth daily. Take 1 tablet by 90 tablet 3 03/24/2018 03/24/20 19 [id number] mouth daily. fumarate-FA (VINATE M) 27-1 mg [...] Date/Time Associated Diagnosis Comme nts URINALYSIS, Routine 08/05/2018 2:43 PM Examination R esults for this DIPSTICK CERTIFIED MASSAGE THERAPIST Other Normal procedure are i n First the results Trimester section. With Personal History Preeclampsia Previous documented in this encounter Results (ABNORMAL) Urinalysis, Dipstick (08/05/2018 2:43 PM CERTIFIED MASSAGE THERAPIST) P athologist Signature Source Midstream 08/05/2018 [facility] 2:[address] [facility] Clarity Turbid (A) Clear 08/05/2018 [facility] 2:[address] [facility] [employer] [facility] Color Yellow 08/05/2018 [facility] 2:46 PM [facility] Comment: ----REFERENCE VALUE---- Colorless Yellow Jaimee Blood Negative Negative 08/05/2018 2:46 PM CERTIFIED MASSAGE THERAPIST [facility] Nitrite Negative Negative 08/05/2018 2:46 PM CERTIFIED MASSAGE THERAPIST [facility] Leukocyte Esterase Negative Negative 08/05/2018 2:46 PM CS T [facility] Protein Negative mg/dL 08/05/2018 2:46 PM CERTIFIED MASSAGE THERAPIST [facility] B Comment: ----REFERENCE VALUE---- Negative Trace Glucose Negative Negative mg/dL 08/05/2018 2:46 PM [facility] [place] [facility] Ketones, QI(U) Negative Negative mg/dL 08/05/2018 2:46 PM [facility] [place] [facility] Bilirubin Negative Negative 08/05/2018 2:46 PM [facility] pH 8.5 (A) 5.0 - 8.0 08/05/2018 2:46 PM [facility] Specific [place] 1.015 1.001 - 1.035 08/05/2018 2:46 PM [facility] Urobilinogen 0.2 0.2 - 1.0 mg/dL 08/05/2018 2:46 PM [facility] Specimen Anatomical Collection Method Collection Time Receive d Time (Source) Location / / Volume Laterality Urine (Urine, 08/05/2018 2:43 PM 08/05/20 18 2:43 Clean Catch) CERTIFIED MASSAGE THERAPIST PM CERTIFIED MASSAGE THERAPIST Lidya Hanson M.D. LAB URINE ORDERABLES Performing Organization Address City/State/ZIP Code Phon e Number [facility] [address] [facility] [place] [address] LAB documented in this encounter Visit Diagnoses Diagnosis Examination Other Normal Pregna ncy First Trimester (HCC) With Personal History Preeclam psia Previous (HCC) documented in this encounter Additional Health Concerns Assessment Noted Time PHQ-9 Depression Total Score: 1 11/16/2012 11:45 AM CS T documented as of this encounter
--- OUTSIDE RECORDS SUMMARY | 2022-07-09 20:41 | XMS_ITS | Encounter Summary ---
:1990 Author Organization [facility] Address [address] [place] [address] Care Team Providers Name Role Phone Unavailable Primary Care Provider Unavailable Reason for Visit Reason Comments Routine Visit Appointment Request (Routine) - Closed Specialty Diagnoses / Procedures Referred By Contact Refer red To Contact Obstetrics and Gynecology Referral ID Status Reason Start Date Expiration Date Visits Requ ested Visits Authorized [id number] Closed 09/29/2018 09/29/2019 1 1 Encounter Details Date Type Department Care Team Description 10/04/2018 Routine Department of Beltran Hanson Other Normal Third Trimester (Primary Dx); Obstetrics and [place] Allergy Seasonal; Gynecology in 2199 Maternal Care For Unspecified Type Scar From Previous Delivery; [facility] Personal History Intrauterine Growth Res triction High Risk ; [address] [place] [address] With Personal Hist ory Preeclampsia Previous ; [place] [address] Maternal Care Due To Uterine Scar From O ther Previous Surgery; [id number] Deficiency Vitamin D; Body Mass Index 45.0 To 49.9 Adult ([facility]) ; [phone] Depression Anxi ety (Fax) Social History Tobacco [...] do you attend judaism or Never 2020 worship services? 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 - 10/04/2018 11:30 AM CST S: She complains still of having no energy and being very tired. She is tired today because she finished her shift at 6 am this morning. Her nausea is a little better. She is having tension headaches in the occipital area that sometimes radiate into the right ear, and due to this, sometimes she can not hear in that ear. She tries eating or drinking pop or water when she has the headaches. She does have occasional contractions, especially at bed time. The pain near her incision has improved significantly after the area was injected by Dr. Tripathi in PM&R. At this point, she only notices the pain when she coughs. Her initial level 2 ultrasound was performed on 07/13/2018 and revealed a hypoplastic nasal bone. Follow-up ultrasounds since then have shown normal anatomy. However, cardiac echo was unable to appropriately visualize the cardiac structures. Maternal serum screen returnednormal. Her heartburn is better with zantac and omeprazole. 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 She has to walk up 6-10 stairs 3 times a day. She is lifting 50 lbs 3 times during her shifts. Her shifts are 12 hours long. She expresses a desire to be off of work. REVIEW OF SYSTEMS: General: No fever, chills, [...] or difficulty sleeping Endocrine: No hair loss, + intolerance of heat, cold, and excessive thirst O: EXTREMITIES: Lower extremities nontender. No edema. IMPRESSION/PLAN 27 y.o. at 30w6d by 6+1 week ultrasound who presents for [...] her that this does not preclude the risk, though [facility] did comment on the most recent US that there is no concern for placenta accreta spectrum on US . Maternal- Medicine will follow this closely with ultrasounds every 4 weeks throughout thepregnancy. She was counseled on the risks including hemorrhage and potential need for hysterectomy at the time of section if accreta is present. Given her prior classical section, delivery was recommended at 36+0 to 37+0??weeks. We will plan a late course of steroids 2-3 daysprior to her scheduled section per [facility] recommendations. 3. ??History of depression and anxiety: ??She reports that her mood symptoms have improved with the medication she was prescribed. Her EPDS score was 8 when it was last checked. She has a lot of stressors that [...] initiate testing with Dopplers. 6. ??BMI >40: ??Early GCT returned normal. We will repeat this at the time of the next visit. 7. Seasonal allergies: Zyrtec daily. Her symptoms are improved with this. 8. Vitamin-D efficiency: Status post ergocalciferol 50,000 international units weekly x8 weeks. Daily vitamin D3 800 international units. 9. Heartburn: Initially improved with Zantac 150 mg bid. She is now having heart burn despite that and this may be contributing to her nausea. Rx for omeprazole was sent but was not managing her symptoms, so she is taking both zantac and omeprazole and her symptoms are improved with this. 10. 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 11. cardiac structures not well visualized at the time of cardiac echo: Structures are likely normal but the study quality was poor and not all structures were well visualized. Therefore, echocardiogram has been recommended 24-48 hours post delivery. I have been in touch with who will be the baby's doctor. Dr. Lorenz inform me that this cannot be scheduled here in [place]. Therefore we will plan delivery elsewhere. The patient prefers [place], so we will assist her in finding a provider there, and she can transfer care in there near future. 12. Low abdominal pain at her Pfannenstiel skin incision site: This was likely due to scar tissue and stretching of the tissue related to her gravid abdomen. She was seen by Dr. Tripathi in physical medicine rehab for injections near her incision which has helped with this pain. 13. Desires sterilization: We [...] Consent form was discussed with her and signed. 14. Musculoskeletal aches and pains of : The patient works long shift, lifts heavy amounts at work, and is going up stairs at work. These are likely contributing to her aches and pains. She was given a work note today restricting her to 8 hr shifts, no heavy lifting and no stairs. 15. Follow-up: In 2 weeks for education, 28 week labs and OBFU with the OB educator and in 1 month with me or with a provider in [place] for OBFU. 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 Plan of Treatment Not on filedocumented as of this encounter Visit Diagnoses Diagnosis Examination Other Normal Pregna ncy Third Trimester ([facility]) - Primary Allergy Seasonal Maternal Care For Unspecified Type Scar From Previous Delivery ([facility]) Personal History Intrauterine Growth Res triction High Risk ([facility]) With Personal History Preeclam psia Previous ([facility]) Maternal Care Due To Uterine Scar From O ther Previous Surgery ([facility]) Deficiency Vitamin D Body Mass Index 45.0 To 49.9 Adult ([facility]) Depression Anxiety documented in this encounter Additional Health Concerns Assessment Noted Time PHQ-9 Depression Total Score: 1 11/16/2012 11:45 AM CS T documented as of this encounter
--- OUTSIDE RECORDS SUMMARY | 2022-07-09 20:41 | XMS_ITS | Encounter Summary ---
:1990 Author Organization [facility] Address [address] [place] [address] Care Team Providers Name Role Phone Unavailable Primary Care Provider Unavailable Encounter Details Date Type Department Care Team Description 07/08/2018 Hospital Encounter Department of Dana Hanson ion Other Normal First Trimester; Laboratory Medicine Ramonita Bose With Personal History Preeclam psia Previous in [place], [address] [place] [phone] Social History Tobacco Use Types Packs/Day Years [...] do you attend mu-ism or Never 2020 mandaeism services? Do you [...] Start Date End Date cetirizine (ZyrTEC) 10 Take 1 tablet (10 mg 30 tablet 11 05/27/2019 mg tablet total) by mouth daily. Take 1 tablet by 90 tablet 3 03/24/2018 03/24/20 19 hfaeihl-wpeutwdu-hmjg mouth daily. fumarate-FA (VINATE M) 27-1 mg per tablet raNITIdine (ZANTAC) 150 Take 1 tablet (150 mg 60 tablet 3 0 05/02/2018 05/02/2019 mg tablet total) by mouth 2 (two) times a day. sertraline (ZOLOFT) 25 Take 1 tablet (25 mg 30 tablet 11 05/05/2021 mg tablet total) by mouth daily. Take with 50 mg tablets for 75 mg daily. sertraline (ZOLOFT) 50 Take 1 tablet (50 mg 30 tablet 11 05/05/2021 mg tablet total) by mouth daily. documented as of this encounter Plan of Treatment Not on filedocumented as of this encounter Procedures Procedure Name Priority Date/Time Associated Diagnosis Comme nts URINALYSIS, Routine 07/08/2018 2:12 PM Examination R esults for this DIPSTICK CDT Other Normal procedure are i n First the results Trimester section. With Personal History Preeclampsia Previous documented in this encounter Results Urinalysis, Dipstick (07/08/2018 2:12 PM CDT) P athologist Signature Source Midstream 07/08/2018 [facility] 2:24 PM CDT [facility] Clarity Clear Clear 07/08/2018 [facility] 2:24 PM CDT [facility] Color Yellow 07/08/2018 [facility] 2:24 PM CDT [facility] Comment: ----REFERENCE VALUE---- Colorless Yellow Jaimee Blood Negative Negative 07/08/2018 2:24 PM CDT [facility] [place] [facility] Nitrite Negative Negative 07/08/2018 2:24 PM CDT [facility] Leukocyte Esterase Negative Negative 07/08/2018 2:24 PM CD T [facility] [place] [facility] Protein Negative mg/dL 07/08/2018 2:24 PM CDT [facility] [place] [facility] Comment: ----REFERENCE VALUE---- Negative Trace Glucose Negative Negative mg/dL 07/08/2018 2:24 PM [facility] [place] [facility] Ketones, QI(U) Negative Negative mg/dL 07/08/2018 2:24 PM [facility] Bilirubin Negative Negative 07/08/2018 2:24 PM [facility] pH 6.0 5.0 - 8.0 07/08/2018 2:24 PM [facility] Specific Lily >=1.030 1.001 - 1.035 07/08/2018 2:24 PM [facility] Urobilinogen 0.2 0.2 - 1.0 mg/dL 07/08/2018 2:24 PM [facility] Specimen Anatomical Collection Method Collection Time Receive d Time (Source) Location / / Volume Laterality Urine (Urine, 07/08/2018 2:12 PM 07/08/20 18 2:18 Clean Catch) CDT PM CDT Lidya Hanson M.D. LAB URINE ORDERABLES Performing Organization Address City/State/ZIP Code Phon e Number [facility] [address] [place] [address] [place] [facility] [address] [place] [address] [place] [address] [place] [facility] documented in this encounter Visit Diagnoses Diagnosis Examination Other Normal Pregna ncy First Trimester (HCC) With Personal History Preeclam psia Previous (HCC) documented in this encounter Additional Health Concerns Assessment Noted Time PHQ-9 Depression Total Score: 1 11/16/2012 11:45 AM CS T documented as of this encounter
--- OUTSIDE RECORDS SUMMARY | 2022-07-09 20:42 | XMS_ITS | Encounter Summary ---
:1990 Author Organization [facility] Address [address] [place] [address] Care Team Providers Name Role Phone Unavailable Primary Care Provider Unavailable Reason for Referral Outpatient (Routine) - Closed Specialty Diagnoses / Procedures Referred By Contact Refer red To Contact Obstetrics [facility] Bakari Bose M.D. [address] [phone] Referral ID Status Reason Start Date Expiration Date Visits Requ ested Visits Authorized [id number] Closed 05/27/2018 05/27/2019 1 1 Scheduling Instructions 30 minute visit Specialty Diagnoses / Procedures Referred By Contact Refer porsha To Contact Lidya Hanson M.D. [facility] [address] [place] [phone] Referral ID Status Reason Start Date Expiration Date Visits Requ ested Visits Authorized Scheduling Instructions Schedule for 1 hour Reason for Visit Reason Comments Routine Visit very tired Appointment Request (Routine) - Closed Specialty Diagnoses / Procedures Referred By Contact Refer porsha To Contact Obstetrics and Gynecology Referral ID Status Reason Start Date Expiration Date Visits Requ ested Visits Authorized [id number] Closed 05/19/2018 05/19/2019 1 1 Encounter Details Date Type Department Care Team Description 05/27/2018 Routine Department of Beltran Hanson Other Normal First Trimester (Primary Dx); Obstetrics and [place] Personal History Intrauterine Growth Res triction High Risk ; Gynecology in 2199 With Personal History Preeclampsia Previous ; [place], [facility] Body Mass Index 45.0 To 49.9 Adult (HCC) ; [address] [facility] [place] Depression Anxiety; [facility] [address] Maternal Care Due To Uterine Scar From O ther Previous Surgery; [id number] Deficiency Vitamin D Social History Tobacco Use Types Packs/Day Years [...] or relatives? How often do you attend denominational or Never 2020 jehovah's witness services? Do you belong to any clubs or No 06/25/2021 organizations such as denominational groups, unions, fraternal or athletic groups, or [...] Sign Reading Time Taken Comments Blood Pressure 110/62 05/27/2018 11:55 AM CDT Pulse - - Temperature - - Respiratory Rate - - Oxygen Saturation - - Inhaled Oxygen Concentration - - Weight 104 kg (228 lb 13.4 oz) 05/27/2018 11:55 AM CDT Height - - Body Mass Index 46.76 04/14/2018 11:36 AM CDT documented in this encounter Progress Notes Lidya Hanson M.D. - 05/27/2018 11:30 AM CDT REASON FOR VISIT/CHIEF COMPLAINT New OB visit HISTORY OF PRESENT ILLNESS 27 y.o. at 12w2d by 6+1 week ultrasound who presents for new OB visit today. She has red, itchy eyes and feels congested. She wakes up at night sneezing and it is even worse in the morning. Shehas been using OTC eye drops for this with minimal relief. She has never had a problem with allergies before this year. This has been going on for the last month. She also reports a labile mood. She states that she gets mad very easily. She has been to the ER for low back and low abdominal pain. This pain is much different than anything she experienced with her other pregnancies. REVIEW OF SYSTEMS: General: No fever, chills, [...] skin lesions Breasts: No masses or lumps, no discharge from the nipples Neuro: No difficulty with memory, numbness, tingling, or falls Psych: + anxiety, depression and difficulty sleeping Endocrine: + excessive thirst, hair loss, intolerance of heat and cold Current Outpatient Prescriptions: ??? ergocalciferol (DRISDOL) 50,000 Unit capsule, Take 1 capsule (50,000 Units total) by mouth once a week for 8 doses., Disp: 8 capsule, Rfl: 0 ??? fxwotwi-cpumekcz-vsdk fumarate-FA (VINATE M) 27-1 mg per tablet, Take 1 tablet by mouthdaily., Disp: 90 tablet, Rfl: 3 ??? raNITIdine (ZANTAC) 150 mg tablet, Take 1 tablet (150 mg total) by mouth 2 (two) times a day., Disp: 60 tablet, Rfl: 3 ??? spironolactone (ALDACTONE) 25 mg tablet, , Disp: , Rfl: 0 ??? SUMAtriptan (IMITREX) 50 mg tablet, , Disp: , Rfl: 0 ??? topiramate (TOPAMAX) 50 mg tablet, , Disp: , Rfl: 0 ??? venlafaxine XR (EFFEXOR-XR) 150 mg 24 hr capsule, , Disp: , Rfl: 0 Allergies Allergen Reactions ??? Cat Dander Hives has allergy to cats Past Medical History: Diagnosis Date ??? Adhesion Pelvic Female 07/05/2014 ??? Body Mass Index 45.0 To 49.9 Adult ([facility]) 01/12/2017 Rule activated problem due to BMI 45-49 posted on 01/12 at 08:26 CDT. ??? Deficiency Vitamin D 06/24/2016 ??? Depression Anxiety 03/10/2016 Depression Anxiety ??? Stone Kidney Personal History 01/12/2017 Past Surgical History: Procedure Laterality Date ??? SECTION N/A 11/26/2009 delivery only;.. ??? SECTION N/A 12/30/2012 delivery only;.. ??? SECTION N/A 06/20/2014 delivery only;.. ??? SECTION N/A 04/23/2016 section ??? LAPAROSCOPIC CHOLECYSTECTOMY N/A 01/08/2015 Laparoscopic cholecystectomy ??? TONSILLECTOMY N/A 2015 Tonsillectomy OB History Para Term AB Living 5 4 3 1 4 SAB TAB Ectopic Molar Multiple Live Births 4 # Outcome Date GA Lbr Vu/2nd Weight Sex Delivery Anes PTL Lv 5 Current 4 04/23/16 33w1d 1.03 kg M CS-Classical Spinal N JORJE Complications: Preeclampsia Severe 3 Term 06/20/14 39w0d 2.551 kg F CS-Unspec JORJE 2 Term 12/30/12 39w1d 2.835 kg M CS-Unspec JORJE 1 Term 11/26/09 37w2d 3.005 kg M CS-LTranv JORJE Social History Social History ??? Marital status: Spouse name: N/A ??? Number of children: N/A ??? Years of education: N/A Occupational History ??? Not on file. Social History Main Topics ??? Smoking status: Never Smoker ??? Smokeless tobacco: Never Used ??? Alcohol use No ??? Drug use: No ??? Sexual activity: Yes Partners: Male Comment: No history of STDs. + recent pap smear. Other Topics Concern ??? Not on file Social History Narrative ??? No narrative on file Family History Problem Relation Age of Onset ??? Diabetes Mother ??? Arthritis Maternal Grandmother ??? Hypertension Maternal Grandfather ??? Diabetes Maternal Grandfather ??? Diabetes Paternal Grandfather ??? Alzheimer's disease Paternal Grandfather She does not have a family history of congenital anomalies. The father of the baby does not have a family history of congenital anomalies. O: Vitals: 05/27/18 1155 BP: 110/62 Weight: 103.8 kg GENERAL: Well nourished female in no acute distress. SKIN: No rashes or lesions HEAD: Normocephalic, atraumatic. EYES: Sclerae with injection bilaterally, no icterus. ENT: Tympanic membranes Pale bilaterally with positive light reflex. Nasal turbinates are mildly edematous and pale, posterior oropharynx with mild erythema, No exudates. Good dentition. LYMPH NODES: Neck supple. No submandibular or cervical lymphadenopathy. ABDOMEN: Soft, nontender. Nondistended. Normoactive bowel sounds. No masses palpable. IMPRESSION/PLAN 27 y.o. at 12w2d by 6+1 week ultrasound who presents for new OB visit today. 1. care: 1st trimester OB education up to date. Second and 3rd trimester education at 28 week visit. We will complete her new OB physical examination at the time of the next visit. 2. History of prior section x4 with classical section with her last delivery: We will plan level 2 ultrasound with Maternal Medicine to assess placentation due to increased riskof abnormal placentation with 4 prior sections. Will she require repeat section at36+0 to 37+0 weeks due to this. 3. History of depression and anxiety: She reports that her mood symptoms have increased recently. Her EPDS score is 10 today. She has been on Effexor 150 mg daily in the past for management of this. Khadra start her on Zoloft 50 mg daily. I will see how she is doing with this when she returns. 4. History of preeclampsia with severe features: The patient was delivered at 33 weeks 1 day due to this. So far with this , her blood pressure is normal. Baseline HELLP labs and urine proteinto creatinine ratio returned normal. 24 hr urine protein has not been completed, so I will ask the patient again to do this at the time of her next visit. We will start her on aspirin 81 mg daily for seizure prevention. I will see her weekly beginning at 32 weeks. As noted above, we will plan level 2 ultrasound with Maternal Medicine. We will also plan growth ultrasounds monthly after 20 weeks. 5. Viability: Doptones were unable to be heard today. Therefore, ultrasound was performed and shows a viable intrauterine with appropriate growth. 6. History of growth restriction: As noted above, we will plan monthly ultrasounds after 20 weeks to assess growth with this . If growth restriction were noted, we would need to initiate testing with Dopplers. 7. BMI >40: Plan anesthesia consult in the 3rd trimester. Plan early GCT at the time of her next visit. 8. Seasonal allergies: Exam findings and symptoms are consistent with this. A prescription for Zyrtec to use daily has been sent. Advised her to stop using the eyedrops she has been using until she confirms their safety with us. She was unable to recall the name of these eyedrops today. I will see howrivka is doing with this when she returns. 9. Vitamin-D efficiency: The patient is currently taking ergocalciferol 50,000 international units weekly x8 weeks. Once she completes this, we will transition her to daily vitamin D3 800 internationalunits. 10. Follow-up: In 3 weeks for OB ed, OBFU and GCT, and in 6 weeks for new OB exam and OBFU with me. documented in this encounter Plan of Treatment Scheduled Referrals Name Type Priority Associated Diagnoses Order S chedule Obstetrics and Outpatient Referral Routine Examination Prenata l Expected: Gynecology - OB Other Normal 06/17/2018 education visit First (Approxim ate), (clinic) Trimester Expires: 05/27/2021 Obstetrics and Outpatient Referral Routine Expect ed: Gynecology office 07/08/2018 visit (clinic) (Approximate) , Expires: 05/27/2021 documented as of this encounter Procedures Procedure Name Priority Date/Time Associated Comments Diagnosis US OB LIMITED RAD - Routine 05/27/2018 4:32 Examination Results fo r this (most inpatients PM CDT Other procedure are in and all Normal the results outpatients) First Trimester section. documented in this encounter Results Glucose Tolerance Test, 1 hour (06/21/2018 2:46 PM CDT) P athologist Signature Glucose Wilbert, 1 90 <130 mg/dL 06/21/2018 [facility] hr, S 6:07 PM CDT [facility] Specimen Anatomical Collection Method Collection Time Receive d Time (Source) Location / / Volume Laterality Blood (Blood, 06/21/2018 2:46 PM 06/21/20 18 5:40 Venous) CDT PM CDT Lidya Hanson M.D. LAB BLOOD NON ADD-ON Performing Organization Address City/State/ZIP Code Phon e Number [facility] [address] [place] [address] LAB US OB Limited (05/27/2018 4:32 PM CDT) P athologist Signature FHR 153 bpm CRL 55.9 mm Anatomical Region Laterality Modality Ultrasound OB RST LOS N/A Ultrasound Specimen (Source) Anatomical Location Collection Method / Collectio n Time Received Time / Laterality Volume Narrative 05/27/2018 4:32 PM CDT Single, living intrauterine with crown-rump length measuring 5.59 cm corresponding with 12+ 2 weeks g estational age. Cardiac activity is present at 153 beats per minute. ??Yo lk sac is not visualized. ?? Gestational sac is fundal. ??There has b een appropriate interval growth since the last ultrasound. The report for this exam was documented during the exam and is located with the images in Qreads. Lidya Hanson M.D. IMG OB US PROCEDURES documented in this encounter Visit Diagnoses Diagnosis Examination Other Normal Pregna ncy First Trimester (HCC) - Primary Personal History Intrauterine Growth Res triction High Risk (HCC) With Personal History Preeclam psia Previous (HCC) Body Mass Index 45.0 To 49.9 Adult (HCC) Depression Anxiety Maternal Care Due To Uterine Scar From O ther Previous Surgery (HCC) Deficiency Vitamin D documented in this encounter Additional Health Concerns Assessment Noted Time PHQ-9 Depression Total Score: 1 11/16/2012 11:45 AM CS T documented as of this encounter
--- OUTSIDE RECORDS SUMMARY | 2022-07-09 20:42 | XMS_ITS | Encounter Summary ---
:1990 Author Organization [facility] Address [address] [place] [address] Care Team Providers Name Role Phone Unavailable Primary Care Provider Unavailable Encounter Details Date Type Department Care Team Description 08/09/2015 Hospital Encounter HX [facility] Todd Dinero M .D. Social History Tobacco Use Types Packs/Day Years [...] or relatives? How often do you attend congregation or Never 2020 anabaptist services? Do you belong to any clubs or No 06/25/2021 organizations such as congregation groups, unions, fraternal or athletic groups, or [...] Sign Reading Time Taken Comments Blood Pressure 104/64 08/09/2015 11:36 AM ACTUARIAL TRAINEE Pulse - - Temperature - - Respiratory Rate - - Oxygen Saturation - - Inhaled Oxygen Concentration - - Weight 90.9 kg (200 lb 6.4 oz) 08/09/2015 11:36 AM ACTUARIAL TRAINEE Height 149 cm (4' 10.66) 08/09/2015 11:36 AM ACTUARIAL TRAINEE Body Mass Index 40.94 08/09/2015 11:36 AM ACTUARIAL TRAINEE documented in this encounter Progress Notes Todd Aponte M.D. - 08/09/2015 11:32 AM CST [id number] CHIEF COMPLAINT/REASON FOR VISIT Requests Nexplanon removal. HISTORY OF PRESENT ILLNESS This patient is a 25-year-old G3, P3-0-0-3 female who requests to have Nexplanon removed. She had the Nexplanon placed on 08/30/2014. The patient no longer feels comfortable having an implant in her body. She would like to consider changing to another form of contraception. She does report she still has periods with the Nexplanon and that she also has irregular bleeding. She no longer feels comfortable with the irregular bleeding symptoms and does not feel comfortable having an implant left inside her body. ALLERGIES No known drug allergies. MEDICATIONS Nexplanon, removed today. PAST MEDICAL/SURGICAL HISTORY PAST MEDICAL HISTORY: 1. Obesity. 2. GERD. 3. Constipation. 4. Seasonal allergic rhinitis. 5. Depression. 6. Pelvic adhesions. 7. History of overdose and suicide attempt. PAST SURGICAL HISTORY: 1. section 2009. 2. section 2012. 3. section 06/20/2014. PAST OBSTETRICAL HISTORY: section x3. SOCIAL HISTORY Patient denies tobacco, alcohol or drug use. No history of PID. She has been treated for chlamydia in 2012. No history of cervical dysplasia. ADULT PREVENTIVE SERVICES Provided by Zohreh Beaulieu, Certified Nurse Practitioner, at [facility]. VITAL SIGNS Weight 90.9 kg, height 149 cm. Blood pressure 104/64. PHYSICAL EXAMINATION GENERAL: Well-developed, well-nourished, obese female, in no apparent distress. Alert and oriented x3. EXTREMITIES: No clubbing, cyanosis, or edema. Nontender bilaterally. The Nexplanon capsule is palpated on the medial aspect of left upper arm in the usual location. No erythema. No signs of infection. Mobile, nontender. ABDOMINAL: Exam deferred. GENITALIA: Exam deferred. PROCEDURE I reviewed the risks, benefits, alternatives, and indication for Nexplanon removal with the patient.Patient verbalizes understanding and desires to proceed. I prepped and draped the medial aspect of left upper arm in the usual fashion. I am able to palpate and locate the Nexplanon capsule. I cleaned the area with Betadine. I located the Nexplanon capsule. I injected the distal end of the Nexplanon capsule at the prior insertion site with 3 mL of lidocaine at 1% lidocaine for local pain control. I then made a small stab incision at the distal end of the Nexplanon capsule at the prior insertion sitewith the scalpel. I passed a small hemostat through the stab incision and was able to grasp the Nexplanon capsule and, with gentle traction, this is removed. It is inspected and found to be intact. It is measured at 4 cm in length. This is shown to the patient. The small stab incision is closed with Steri-Strips. A pressure bandage is placed over the site in the usual fashion. All sponge, lap, needle, and instrument counts are correct x2. The patient tolerated the procedure well. IMPRESSION/REPORT/PLAN 1. Nexplanon capsule removal at patient request. 2. Contraception counseling. PLAN: 1. I discussed contraception options available to the patient. If the Nexplanon capsule is being removed then she will need something for contraception. I discussed control pills. I discussed Ortho Evra patch. I discussed NuvaRing. I discussed Mirena IUD, ParaGard IUD, and condoms. I discussed Depo- Provera. I gave patient literature to review. The patient is undecided. 2. The patient strongly desires to have the Nexplanon capsule removed. She no longer wants to have an implant left inside her body. She is complaining of irregular vaginal bleeding with her menses on the Nexplanon. I reviewed with the patient that this is a common finding with Nexplanon. She still desires to have the Nexplanon capsule removed. 3. I removed the Nexplanon capsule as mentioned above without difficulty. 4. The patient is undecided on contraception. I recommend she remain abstinent until she is on reliable contraception. 5. The patient states that she has an appointment with her primary provider next week and she will discuss contraception further with her primary provider. Todd Aponte M.D./ruiz cc: Zohreh Beaulieu [phone] [place] [address] Electronically Signed By: TODD APONTE MD On: 08/09/2015 01:38 PM [facility] Document Id: [id number] ARIAL TRAINEE documented in this encounter Miscellaneous Notes Miscellaneous - Todd Aponte M.D. - 08/09/2015 11:52 AM CST Ambulatory Patient Summary [address] [id number] Visit Information Name: BARBRA ROSE [facility] Number: [id number] Current Date: 08/09/2015 11:52:31 Physicians Attending Provider: TODD APONTE MD Primary Care Provider: PCP, BARBRA OVALLELE has been given the following list of follow-up instructions, medication list, and patient education materials: Follow-up Instructions Your Medications Here is a list of your medications. It is important to take your medications as directed. Use a pillbox or chart to help remind you to take your medications. Please let your doctor or nurse know if you have problems taking your medications. Medication/Strength How to Take Indications/Special Instructions/Comments/Notes for Patient Medication Changes/Routing Stop Taking the Following Medications: etonogestrel (etonogestrel) multivitamin, ( Multivitamins oral tablet) Medication list as of 08-09-15 11:52 Attention: If you have any medications at home that are not on this list, DO NOT take them until youcontact your provider for clarification. Give a copy of your medication list to your primary care provider. Update your medication list any time medications or doses are changed and carry your medication list at all times in case of emergency. Electronically Signed By: TODD APONTE MD Signed On:09-AUG-2015 11:52:25 Your Allergies & Intolerances Substance Reaction Symptoms Category Comments Cats Other has allergy to cats Your Problem List Problem Status Onset Comments Family History of Diabetes Mellitus Active Adhesion Pelvic Female Active Your Upcoming Appointments Date Time Location Provider No Appointments found Attention: Contact your local Clinic if further appointment detail needed. Consider Using Patient Online Services Patient Online Services is a secure online and Mobile application that lets you: ?? View lab and test results ?? View portions of your medical record including clinical notes, immunizations and discharge summaries ?? Request an appointment or medication refill ?? Review your appointment schedule ?? Send secure messages to your care team Its easy to create an account if you dont have one. Go to [email or web address] and click on Create Your Account. Then, follow the directions to complete the online form. Youll be asked for your [facility] number which you can find at the top of this document. Your Goals/Additional instructions: Source: [facility] [employer] Document Id: [id number] Grieraneous - Todd Aponte M.D. - 08/09/2015 11:52 AM CST Ambulatory Discharge Medication List [address] [id number] Visit Information Name: BARBRA ROSE [facility] Number: [id number] Visit Date: 08/09/2015 11:52:30 Attending Provider: TODD APONTE MD Primary Care Provider: PCP, BABRRA OVALLE has been given the following list of medications: Your Medications It is important to take your medications as directed. Use a pill box or chart to help remind you to take your medications. Please let your doctor or nurse know if you have problems taking your medications. Medication/Strength How to Take Indications/Special Instructions/Comments/Notes for Patient Medication Changes/Routing Stop Taking the Following Medications: etonogestrel (etonogestrel) multivitamin, ( Multivitamins oral tablet) Medication list as of 08-09-15 11:52 Attention: If you have any medications at home that are not on this list, DO NOT take them until youcontact your provider for clarification. Give a copy of your medication list to your primary care provider. Update your medication list any time medications or doses are changed and carry your medication list at all times in case of emergency. Electronically Signed By: TODD APONTE MD Signed On:09-AUG-2015 11:52:25 Additional Information: Source: [facility] [employer] Document Id: [id number] ARIAL TRAINEE Miscellaneous - Kylee Crespo LWanderP.N. - 08/09/2015 11:36 AM CST Adult Obstetrics Gyn Intake/History Adult Obstetrics Gyn Intake/History Entered On: 08/09/2015 11:38 ACTUARIAL TRAINEE Performed On: 08/09/2015 11:36 ACTUARIAL TRAINEE by KYLEE CRESPO LPN Intake Chief Complaint : Issues with control Systolic Blood Pressure : 104 mmHg Diastolic Blood Pressure : 64 mmHg NIBP Mean : 77 mmHg BP Location : Left upper extremity Blood Pressure Cuff Size : Large Height : 149 cm(Converted to: 4 ft 11 inch(es), 59 inch(es)) Actual Weight : 90.9 kg(Converted to: 200 lb 6 oz) Weight Source : Standing scale Dosing Weight Clinic : 90.9 kg Clinic BSA : 1.94 Body Mass Index : 40.94 kg/m2 KYLEE CRESPO LPN - 08/09/2015 11:36 ACTUARIAL TRAINEE General Info Information Given By : Patient Languages : [place] Islander Is Patient Female and 13-50 no hysterectomy : Yes Status : Patient denies Are you ? : No KYLEE CRESPO LPN - 08/09/2015 11:36 ACTUARIAL TRAINEE Subjective Pain Symptoms : No KYLEE CRESPO LPN - 08/09/2015 11:36 ACTUARIAL TRAINEE Dependent Habits Tobacco Use/Currently Using : No Exposure to Tobacco Smoke : Lives with someone who smokes, Other: none Smoking Status : Never smoker KYLEE CRESPO LPN - 08/09/2015 11:36 ACTUARIAL TRAINEE Caffeine Use Grid Caffeine Use : Current Type : Coffee Frequency : Daily KYLEE CRESPO LPN - 08/09/2015 11:36 ACTUARIAL TRAINEE Source: [facility] POWERCHART Document Id: [id number] ACTUARIAL TRAINEE!31 ARIAL TRAINEE documented in this encounter Plan of Treatment Not on filedocumented as of this encounter Visit Diagnoses Not on filedocumented in this encounter Additional Health Concerns Assessment Noted Time PHQ-9 Depression Total Score: 1 11/16/2012 11:45 AM CS T documented as of this encounter
--- OUTSIDE RECORDS SUMMARY | 2022-07-09 20:42 | XMS_ITS | Encounter Summary ---
:1990 Author Organization [facility] Address [address] [place] [address] Care Team Providers Name Role Phone Unavailable Primary Care Provider Unavailable Encounter Details Date Type Department Care Team Description 03/10/2016 Hospital Encounter HX [facility] Florentin Rosado M.D. [address] [place], [place] [phone] (Wo rk) Social History Tobacco Use Types [...] or relatives? How often do you attend mosque or Never 2020 episcopal services? Do you belong to any clubs or No 06/25/2021 organizations such as mosque groups, unions, fraternal or athletic groups, or [...] or slept in a fpc (including now)? Sex Assigned at Date Recorded Female 04/12/2018 10:21 PM CDT documented as of this encounter Last Filed Vital Signs Vital Sign Reading Time Taken Comments Blood Pressure 118/72 03/10/2016 8:52 AM CDT Pulse - - Temperature - - Respiratory Rate - - Oxygen Saturation - - Inhaled Oxygen Concentration - - Weight 96.9 kg (213 lb 10 oz) 03/10/2016 8:52 AM CDT Height 149 cm (4' 10.66) 03/10/2016 8:22 AM CDT Body Mass Index 43.65 03/10/2016 8:22 AM CDT documented in this encounter H&P Notes Lidya Beltran M.D. - 03/10/2016 8:21 AM CDT [id number] CHIEF COMPLAINT/REASON FOR VISIT Establish care with me this . HISTORY OF PRESENT ILLNESS Norah is a 25-year-old 4, para 3-0-0-3 female at 26+2 weeks by last menstrual period consistent with 7+5 week ultrasound, who presents to establish care with me in this . She was seenby Dr. Bobby up until recently when she referred her here for consult due to her history of prior sections x3. She reports that this has been a very difficult for her. She reports syncopal episodes in early requiring her to quit her other job and to go to work at [employer]. She has significant musculoskeletal aches and pains and low abdominal pain that is very bothersome to her. She reports that the baby is moving well. She does possibly have occasional contractions but none that are regular or painful. She has had no recent vaginal bleeding or leakage of fluid though she did have some significant bleeding early on in the in the first trimester. MEDICATIONS See medication list updated in the EMR today. ALLERGIES See allergy list updated in the EMR today. SYSTEMS REVIEW GENERAL: Positive for fevers and chills. No fatigue, unintentional weight loss or weight gain. HEENT: Positive for changes in vision and sore throat. CARDIOVASCULAR: No chest pain, irregular heartbeat or racing heart. RESPIRATORY: No shortness of breath, cough or wheeze. GASTROINTESTINAL: Positive for constipation and abdominal pain. No nausea, vomiting, diarrhea. GENITOURINARY: Positive for abnormalvaginal discharge. No pain or burning with urination, no irregular vaginal bleeding, heavy periods, painful periods, leaking urine, leaking stool or gas. SKIN: No rashes or skin lesions. BREASTS: No masses or lumps, no discharge from the nipples. NEUROLOGIC: No difficulty with memory, numbness, tingling, falls. PSYCHIATRIC: Positive for difficulty sleeping related to . No anxiety or depression. ENDOCRINE: Positive for hair loss related to . No heat intolerance, cold intolerance, excessive thirst. PAST MEDICAL/SURGICAL HISTORY PAST MEDICAL HISTORY: See problem list updated in the EMR today. PAST SURGICAL HISTORY: See procedure list updated in the EMR today. NOTCHER HISTORY: 4, para 3-0-0-3 female, status post 3 sections, 2 at full term and the first was at early term at 37+2 weeks. She has no history of STDs or abnormal Pap smears. SOCIAL HISTORY No tobacco, alcohol, or drug use. She denies any concerns about abuse. She works at [employer] and is to her , [place]. FAMILY HISTORY See family history list updated in the EMR today. VITAL SIGNS See results review section in the EMR. PHYSICAL EXAMINATION GENERAL: Well-nourished female, in no acute distress. HEAD: Normocephalic, atraumatic. EENT: Vision and hearing grossly intact. RESPIRATORY: Breathing nonlabored. ABDOMEN: Gravid, fundal height 29 cm. heart tones 140's. LOWER EXTREMITIES: Nontender, no edema. SKIN: No rashes or lesions. NEUROLOGIC: Alert and oriented x3. IMPRESSION/REPORT/PLAN A 25-year-old 4, para 3-0-0-3 female at 26+2 weeks by last menstrual period consistent with 7+5 week ultrasound, who presents to establish care with me in today. 1. care: No specific issues were addressed today. 2. Prior section x3: The placenta was posterior on ultrasound and no evidence of previa wasnoted. We will plan repeat section at 39 weeks with this . 3. Size greater than dates: The fundal height is greater than 2 cm discrepant from the gestational age. The patient is doing her GCT today. I will plan a growth ultrasound at the time of the next visit. 4. Depression/anxiety: I will see how the patient is doing from a mood standpoint when she returns. 5. Low abdominal pain: The patient has pain with palpation of the bladder. Her cervix is closed, long and high today. Long dip showed small leukocyte esterase but otherwise was not suspicious for infection but we will send a urine culture to exclude this. I think this is most likely musculoskeletal and the patient was counseled that often musculoskeletal aches and pains are worse with each successivepregnancy. I will give her a referral so that she can see Physical Therapy for this musculoskeletal low abdominal pain that radiates into her legs. 6. Followup: Two weeks. Lidya Beltran M.D./ruiz Electronically Signed By: LIDYA BELTRAN MD On: 03/12/2016 05:56 PM Source: [facility] MHSDOLBEYNONRADSYS Document Id: [id number] documented in this encounter Procedure Notes Sumit Quesada L.P.NWander - 03/10/2016 9:07 AM CDT Urine Dipstick Urine Dipstick Entered On: 03/10/2016 9:08 CDT Performed On: 03/10/2016 9:07 CDT by SUMIT QUESADA LPN Urine Dipstick UA Color POC : Jaimee UA Appear POC : Slightly Cloudy UA Leuk POC : Trace UA Nitrite POC : Negative UA Urobilinogen POC : 1 mg/dl UA Protein POC : 1+ (30 mg/dl) UA pH POC : 6.0 UA Blood POC : Negativ UA Spec Grav POC : 1.030 UA Ketones POC : Negative UA Bili POC : 1+ Small UA Glucose POC : Negative SUMIT QUESADA LPN - 03/10/2016 9:07 CDT Source: [facility] POWERCHART Document Id: [id number] CDT!14 documented in this encounter Miscellaneous Notes Telephone Encounter - Conversion, Historical Provider Ser - 03/11/2016 10:09 AM CDT *Phone Message/Dr. Beltran Document Contains Addenda Addendum by KYLEE CRESPO LPN on March 11, 2016 10:24:36 CDT Left message notifying patient. From: MINI FLORES ( [employer]) To: Obstetrics/Gynecology Nurse; Sent: 03/11/2016 10:09:43 CDT Subject: *Phone Message/Dr. Beltran Caller is: ( x ) Patient ( ) Mother ( ) Father ( ) Spouse ( ) Daughter ( ) Son ( ) Pharmacy ( ) Other: Physician: Dr. Beltran Patient MRN #: Reason for Call: Message: Patient was calling to schedule her follow up OB appointments and is wondering if the nursehas the results of her glucose test yesterday. Please call her back at [phone] with results. Advice/Action: Source used: ( ) Verbalizes understanding of instructions ( ) Instructed to call back if symptoms worsen or do not resolve ( ) Refused to see provider ( ) Appointment Scheduled ( ) OK to leave message on voice mail ( ) Patient told to expect return call: ( ) today ( ) tomorrow ( ) next work day ( ) Patient's email ( ) Patient told physician out of office, will call upon return call on ( ) ( ) Patient told physician out of office, routed to other physician ( ) Other ( ) Call back telephone number ( ) Call back cell phone number ( ) [facility] Document Id: [id number] Miscellaneous - Lidya Beltran M.D. - 03/10/2016 6:52 PM CDT Ambulatory Patient Summary [facility] [address] [place] [id number] Visit Information Name: NORAH HDZ [facility] Number: [id number] Current Date: 03/10/2016 18:52:45 Physicians Attending Provider: LIDYA BELTRAN MD Primary Care Provider: PCP, NORAH PERERA has been given the following list of [...] Take Indications/Special Instructions/Comments/Notes for Patient Medication Changes/Routing fluconazole (Diflucan 150 mg oral tablet) See Instructions 1 tab(s) PO Once today, repeat in 3 days. multivitamin, ( Multivitamins) Oral, once a day Stop Taking the Following Medications: Medication list as of 03-10-16 18:52 Attention: If you have any medications at home that are not on this list, DO NOT take them until youcontact your provider for clarification. Give a copy of your medication list to your primary care provider. Update your medication list any time medications or doses are changed and carry your medication list at all times in case of emergency. Electronically Signed By: LIDYA BELTRAN MD Signed On:10-MAR-2016 18:52:42 Your Allergies & Intolerances Substance Reaction Symptoms Category Comments Cats Other has allergy to cats Your Problem List Problem Status Onset Comments Family History of Diabetes Mellitus Active Adhesion Pelvic Female Active Normal Preg Not First 1st Preg (IUPF) Active Depression Anxiety Active Discrepancy Uterine Size Date Antepartum Preg Active Complication Preg Previous (C) Section Antepartum Active Your Upcoming Appointments Date Time Location [...] if you dont have one. Go to [email or web address] and click on Create Your Account. Then, follow the directions to complete the online form. Youll be asked for your [facility] number which you can find at the top of this document. Your Goals/Additional instructions: Source: [facility] POWERCHART Document Id: [id number] Miscellaneous - Lidya Beltran M.D. - 03/10/2016 6:52 PM CDT Ambulatory Discharge Medication List [address] [id number] Visit Information Name: NORAH HDZ [facility] Number: [id number] Visit Date: 03/10/2016 18:52:45 Attending Provider: LIDYA BELTRAN MD Primary Care Provider: PCP, NIYA NORAH HDZ has been given the following list of medications: Your Medications It is important to take your medications as directed. Use a pill box or chart to help remind you to take your medications. Please let your doctor or nurse know if you have problems taking your medications. Medication/Strength How to Take Indications/Special Instructions/Comments/Notes for Patient Medication Changes/Routing fluconazole (Diflucan 150 mg oral tablet) See Instructions 1 tab(s) PO Once today, repeat in 3 days. multivitamin, ( Multivitamins) Oral, once a day Stop Taking the Following Medications: Medication list as of 03-10-16 18:52 Attention: If you have any medications at home that are not on this list, DO NOT take them until youcontact your provider for clarification. Give a copy of your medication list to your primary care provider. Update your medication list any time medications or doses are changed and carry your medication list at all times in case of emergency. Electronically Signed By: LIDYA BELTRAN MD Signed On:10-MAR-2016 18:52:42 Additional Information: Source: [facility] POWERCHART Document Id: [id number] Miscellaneous - Alden Hong, L.P.N. - 03/10/2016 1:52 PM CDT Director Of Music Therapy Documentation Director Of Music Therapy Documentation Entered On: 03/10/2016 13:52 CDT Performed On: 03/10/2016 13:52 CDT by ALDEN HONG LPN Director Of Music Therapy Documentation Exam/Procedure Performed : Cervical check CD Director Of Music Therapy Present : Yes CD Director Of Music Therapy Name : Sumit Tripathi LPN Present in Room During Exam/Procedure : Alone ALDEN HONG LPN - 03/10/2016 13:52 CDT [facility] Document Id: [id number] CDT!6 Miscellaneous - Sumit Quesada L.PJoshua - 03/10/2016 8:52 AM CDT Adult Surveillance Director Intake/History Adult Surveillance Director Intake/History Entered On: 03/10/2016 8:55 CDT Performed On: 03/10/2016 8:52 CDT by SUMIT QUESADA LPN Intake Chief Complaint : obfu 26+4 Systolic Blood Pressure : 118 mmHg Diastolic Blood Pressure : 72 mmHg NIBP Mean : 87 mmHg BP Location : Left upper extremity Blood Pressure Cuff Size : Regular Actual Weight : 96.9 kg(Converted to: 213 lb 10 oz) Weight Source : Standing scale Dosing Weight Clinic : 96.9 kg SUMIT QUESADA LPN - 03/10/2016 8:52 CDT General Info Information Given By : Patient Languages : Sammarinese Is Patient Female and 13-50 no hysterectomy : Yes Status : Confirmed positive Are you ? : No SUMIT QUESADA LPN - 03/10/2016 8:52 CDT Subjective Pain Symptoms : No SUMIT QUESADA LPN - 03/10/2016 8:52 CDT Dependent Habits Exposure to Tobacco Smoke : Lives with someone who smokes, Other: none Smoking Status : Never smoker Tobacco 2A : No Tobacco Use/Currently Using : No Tobacco Use/Last 30 Days : No Tobacco Use/Last 12 months : No SUMIT QUESADA LPN - 03/10/2016 8:52 CDT Caffeine Use Grid Caffeine Use : Current Type : Coffee Frequency : Daily SUMIT QUESADA LPN - 03/10/2016 8:52 CDT [facility] Document Id: [id number] CDT!31 documented in this encounter Plan of Treatment Not on filedocumented as of this encounter Procedures Procedure Name Priority Date/Time Associated Comments Diagnosis SYPHILIS TOTAL AB W/ Routine 03/10/2016 10:29 Res ults for this REFLEX S AM CDT procedure are i n the results section. GLUCOSE, GESTATIONAL Routine 03/10/2016 10:29 Res ults for this 1HR, S AM CDT procedure are i n the results section. CBC WITHOUT Routine 03/10/2016 10:29 Results for this DIFFERENTIAL, B AM CDT procedure ar e in the results section. DIPSTICK, POCT, U Routine 03/10/2016 9:07 AM Resu lts for this (NURSING) INTERFACED CDT procedu re are in the results section. BACTERIAL CULTURE, Routine 03/10/2016 9:02 AM Res ults for this AEROBIC, URINE CDT procedure are in the results section. documented in this encounter Results CBC without Differential (03/10/2016 10:29 AM CDT) P athologist Signature Leukocytes 7.5 3.4 - 10.5 POWERCHART X109L Erythrocytes 4.20 3.90 - 5.03 POWERCHART P5419G Hemoglobin 12.9 12.0 - 15.5 POWERCHART GDL Hematocrit 38.1 34.9 - 44.5 POWERCHART MCV 90.7 82.0 - 98.0 POWERCHART FL Platelet Count 247 150 - 450 POWERCHART X109L HX RDW 13.4 11.9 - 15.5 POWERCHART Specimen (Source) Anatomical Collection Method Collection Time Re ceived Time Location / / Volume Laterality Blood 03/10/2016 10:29 AM CDT Lidya Beltran M.D. LAB BLOOD ADD-ON Performing Organization Address City/State/ZIP Code Phon e Number POWERCHART Glucose, Gestational 1HR (03/10/2016 10:29 AM CDT) P athologist Signature HXGlucose 1 Hr 102 70 - 139 POWERCHART OB MGDL Specimen (Source) Anatomical Collection Method Collection Time Re ceived Time Location / / Volume Laterality Blood 03/10/2016 10:29 AM CDT Lidya Beltran M.D. LAB BLOOD ADD-ON Performing Organization Address City/State/ZIP Code Phon e Number POWERCHART Syphilis IgG Antibody with Reflex (03/10/2016 10:29 AM CDT) P athologist Signature Syphilis IgG Negative Negative POWERCHART Ab, S Comment: No serologic evidence of exposure to syp hilis. Test Performed by: [place] [address] Negative Turner Apprentice: Pablo Amaro II, M.D., Ph.D. Specimen (Source) Anatomical Collection Method Collection Time Re ceived Time Location / / Volume Laterality Blood 03/10/2016 10:29 AM CDT Lidya Beltran M.D. LAB BLOOD ADD-ON Performing Organization Address City/State/ZIP Code Phon e Number POWERCHART Dipstick, POCT, Urine (nursing) (03/10/2016 9:07 AM CDT) [facility] Method Time Signature Color Jaimee POWERCHART Appearance Slightly POWERCHART Cloudy Leukocytes, Trace POWERCHART POCT, U Nitrites, Negative POWERCHART POCT, U Urobilinogen, 1 mg/dl POWERCHART POCT, Urine Protein, POCT, 1+ (30 POWERCHART U mg/dl) pH, POCT, 6.0 5.0 - 9.0 POWERCHART Urine Blood, POCT, U Negativ POWERCHART Specific 1.030 1.000 - POWERCHART [place], POCT, 1.030 U Ketone, POCT, Negative POWERCHART U Bilirubin, 1+ Small POWERCHART POCT, U Glucose, POCT, Negative POWERCHART U Specimen (Source) Anatomical Collection Method Collection Time Re ceived Time Location / / Volume Laterality 03/10/2016 9:07 AM CDT Lidya Beltran M.D. LAB POCT ORDERABLES - DEVICE Performing Organization Address City/[facility]/ZIP Code Phon e Number POWERCHART Bacterial Culture, Aerobic, Urine (03/10/2016 9:02 AM CDT) [facility] Method Time Signature Bacterial POWERCHART Culture, Aerobic, Urine HXFinal Mixed say. No POWERCHART further studies unless notified. HXFinal [place] POWERCHART Microbiology laboratory [phone]. Specimen (Source) Anatomical Collection Method Collection Time Re ceived Time Location / / Volume Laterality Urine, First 03/10/2016 9:02 AM Voided CDT Lidya Beltran M.D. LAB MICROBIOLOGY - GENERAL O RDERABLES Performing Organization Address City/State/ZIP Code Phon e Number POWERCHART documented in this encounter Visit Diagnoses Not on filedocumented in this encounter Additional Health Concerns Assessment Noted Time PHQ-9 Depression Total Score: 1 11/16/2012 11:45 AM CS T documented as of this encounter
--- OUTSIDE RECORDS SUMMARY | 2022-07-09 20:42 | XMS_ITS | Encounter Summary ---
:1990 Author Organization [facility] Address [address] [place] [address] Care Team Providers Name Role Phone Unavailable Primary Care Provider Unavailable Encounter Details Date Type Department Care Team Description 03/24/2018 Clinical Communication Department of Hanna Riggins Obstetrics and R.N. Gynecology in [address] [facility] [place], [place] [address] [facility] [address] [place], [place] [phone] (Wo rk) [address] [phone] Social History Tobacco Use Types Packs/Day Years Used Date Smoking Tobacco: Never Alcohol Habits Answer Date Recorded How often [...] do you attend mandaen or Never 2020 jewish services? Do you [...] of this encounter Visit Diagnoses Diagnosis Encounter For Supervision Of Connie dobbins Unspecified Trimester (HCC) - Primary documented in this encounter Additional Health Concerns Assessment Noted Time PHQ-9 Depression Total Score: 1 11/16/2012 11:45 AM CS T documented as of this encounter
--- OUTSIDE RECORDS SUMMARY | 2022-07-09 20:42 | XMS_ITS | Encounter Summary ---
:1990 Author Organization [facility] Address [address] [place] [address] Care Team Providers Name Role Phone Unavailable Primary Care Provider Unavailable Encounter Details Date Type Department Care Team Description 03/10/2016 Hospital Encounter HX NO MAPPING Sumeet Hanson M.D. [address] [place], [place] [phone] (Wo rk) Social History [...] or relatives? How often do you attend pentecostal or Never 2020 worship services? Do you belong to any clubs or No 06/25/2021 organizations such as pentecostal groups, unions, fraternal or athletic groups, or [...]
--- OUTSIDE RECORDS SUMMARY | 2022-07-09 20:42 | XMS_ITS | Encounter Summary ---
:1990 Author Organization [facility] Address [address] [place] [address] Care Team Providers Name Role Phone Unavailable Primary Care Provider Unavailable Reason for Visit Reason Comments Initial Visit Confirm 7+1 weeks Outpatient (Routine) - Closed Specialty Diagnoses / Procedures Referred By Contact Refer red To Contact Obstetrics and ROSENDO Beltran DON reveles Gynecology [place] [address] [facility] [address] Referral ID Status Reason Start Date Expiration Date Visits Requ ested Visits Authorized [id number] Closed 03/24/2018 03/24/2019 1 1 Encounter Details Date Type Department Care Team Description 04/14/2018 Routine Department of Beltran Beltran Other Normal First Trimester (Primary Dx); Obstetrics and [place] With Personal History Preeclam psia Previous ; Gynecology in [address] Maternal Care Due To Uterine Scar From Other Previous Surgery; [facility] Personal History Intrauterine Growth Res triction High Risk ; [address] [place], [place] Depression Anxiety; [facility] [place] [address] Body Mass Index 45.0 To 49.9 Adult ([facility]) [id number] Social History Tobacco Use Types Packs/Day [...] or relatives? How often do you attend yazidi or Never 2020 religion services? Do you belong to any clubs or No 06/25/2021 organizations such as yazidi groups, unions, fraternal or athletic groups, or [...] place to sleep or slept in a fdc (including now)? Sex Assigned at Date Recorded Female 04/12/2018 10:21 PM CDT documented as of this encounter Last Filed Vital Signs Vital Sign Reading Time Taken Comments Blood Pressure 92/60 04/14/2018 11:36 AM CDT Pulse - - Temperature - - Respiratory Rate - - Oxygen Saturation - - Inhaled Oxygen Concentration - - Weight 104 kg (229 lb 11.5 oz) 04/14/2018 11:36 AM CDT Height 149 cm (4' 10.66) 04/14/2018 11:36 AM CDT Body Mass Index 46.94 04/14/2018 11:36 AM CDT documented in this encounter Progress Lidya Garza M.D. - 04/14/2018 11:15 AM CDT REASON FOR VISIT/CHIEF COMPLAINT confirmation HISTORY OF PRESENT ILLNESS LMP: 02/23/2018, and it was difficult to tell if it was on time because she had a heavy and prolongedperiod in early January, and the period at the end of January was mangle catcher and only 3 days. She has not had VB since her LMP. She has had varicella or the vaccination, has no history of TB, has no history of blood transfusions, has no history of herpes, and has no history of complications from anesthesia. She has no significant nausea or vomiting. She has no other concerns today. REVIEW OF SYSTEMS: General: No fever, chills, fatigue, or unintentional weight loss, + weight gain HEENT: No sore throat, nasal [...] anxiety or depression, + difficulty sleeping Endocrine: No excessive thirst, hair loss, intolerance of heat or cold Current Outpatient Prescriptions on File Prior to Visit Medication Sig Dispense Refill ??? wkxelco-ldlttwhw-zebb fumarate-FA (VINATE M) 27-1 mg per tablet Take 1 tablet by mouth daily. 90 tablet 3 No current facility-administered medications on file prior to visit. Allergies Allergen Reactions ??? Cat Dander Hives has allergy to cats No past medical history on file. O: Vitals: 04/14/18 1136 BP: 92/60 Height: 149 cm Weight: 104.2 kg General: Well-nourished female in no acute distress Head: Normocephalic, atraumatic ENT: Vision and hearing grossly intact Chest: Breathing nonlabored Abdomen: Soft, nondistended, nontender Lower extremities: Nontender, no edema Neuro: Alert and oriented x3, normal gait Skin: No rashes or lesions IMPRESSION/PLAN 27 y.o. at 6w1d by 6+1 week ultrasound who presents for confirmation today. 1. care: The patient will return in 1 month for an OB visit with our OB educator and for her 1st trimester OB education. New OB labs were drawn today. 2. Dating/viability: Ultrasound today shows a single living intrauterine at 6+1 weeks gestation which is not consistent with dates by her last menstrual period. Therefore her LESLEY will be 12/07/2018. 3. History of prior section x4 with classical section with her last delivery: We will plan level 2 ultrasound with Maternal Medicine to assess placentation due to increased riskof abnormal placentation with 4 prior sections. Will she require repeat section at36+0 to 37+0 weeks due to this. 4. History of depression and anxiety: She reports that her mood symptoms are stable at this time andher EPDS score is 5. We will repeat this with any worsening of symptoms or at 28 weeks and in the period. She has been on Effexor 150 mg daily in the past for management of this. I will see whether she is still on this when she returns. 5. History of preeclampsia with severe features: The patient was delivered at 33 weeks 1 day due to this. So far with this , her blood pressure is normal. We will obtain baseline HELLP labs today, baseline urine protein to creatinine ratio and 24 hr urine protein. We will start her on ypowlmy42 mg daily for seizure prevention. I will see her weekly beginning at 32 weeks. As noted above, we will plan level 2 ultrasound with Maternal Medicine. We will also plan growth ultrasounds monthly after 20 weeks. 6. History of growth restriction: As noted above, we will plan monthly ultrasounds after 20 weeks to assess growth this . If growth restriction were noted, we would need to initiate testing with Dopplers. 7. BMI >40: Plan anesthesia consult in the 3rd trimester. 8. Follow-up: In 1 month with the OB educator and in 6 weeks with me for new OB visit. documented in this encounter Miscellaneous Notes Addendum Note - Lidya Beltran M.D. - 04/14/2018 11:15 AM CDT Addended by: LIDYA BELTRAN on: 04/18/2018 04:05 PM Modules accepted: Orders documented in this encounter Plan of Treatment Not on filedocumented as of this encounter Procedures Procedure Name Priority Date/Time Associated Comments Diagnosis US OB LIMITED RAD - Routine 04/14/2018 5:35 Examination Results fo r this (most inpatients PM CDT Other procedure are in and all Normal the results outpatients) First Trimester section. documented in this encounter Results US OB Limited (04/14/2018 5:35 PM CDT) P athologist Signature CRL 4 mm Anatomical Region Laterality Modality Ultrasound OB RST LOS N/A Ultrasound Specimen (Source) Anatomical Location Collection Method / Collectio n Time Received Time / Laterality Volume Narrative 04/14/2018 5:35 PM CDT Single, living intrauterine with crown-rump length of 4 mm corresponding to 6 weeks 1 day gestation al age. Cardiac activity is noted. Yolk sac is visualized. ??Gestational s ac is fundal. ??LESLEY by ultrasound today is 12/07/2018. The report for this exam was documented during the exam and is located with the images in Qreads. Lidya Beltran M.D. IMG OB US PROCEDURES (ABNORMAL) Creatinine with Estimated GFR (04/14/2018 1:22 PM CDT) Analysis Performed At Patho logist Time Signature Creatinine 0.53 (L) 0.59 - 04/14/2018 [facility] 1.04 mg/dL 6:57 PM CDT [facility] eGFR-Non >90 >=60 04/14/2018 [facility] Black/ mL/min/BSA 6:57 PM CDT [facility] LAB Comment: ----ADDITIONAL INFORMATION---- Estimated GFR calculated using the 2009 CKD_EPI creatinine equation. eGFR-Black/ >90 >=60 mL/min/BSA 2017 6:57 PM [facility] Comment: ----ADDITIONAL INFORMATION---- Estimated GFR calculated using the 2009 CKD_EPI creatinine equation. Specimen Anatomical Collection Method Collection Time Receive d Time (Source) Location / / Volume Laterality Blood (Blood, 04/14/2018 1:22 PM 04/14/20 18 6:40 Venous) CDT PM CDT Lidya Beltran M.D. LAB BLOOD ADD-ON Performing Organization Address City/State/ZIP Code Phon e Number [facility] [address] [place] [address] LAB BUN (Blood Urea Nitrogen) (04/14/2018 1:22 PM CDT) P athologist Signature BUN (Blood Urea 6 6 - 21 04/14/2018 [facility] Nitrogen), S mg/dL 6:57 PM CDT [facility] Specimen Anatomical Collection Method Collection Time Receive d Time (Source) Location / / Volume Laterality Blood (Blood, 04/14/2018 1:22 PM 04/14/20 18 6:40 Venous) CDT PM CDT Lidya Beltran M.D. LAB BLOOD ADD-ON Performing Organization Address City/[facility]/ZIP Code Phon e Number [facility] [address] [place] [address] LAB AST (Aspartate Aminotransferase) (04/14/2018 1:22 PM CDT) [facility] Method Time Signature Aspartate 20 8 - 43 04/14/2018 [facility] Aminotransferase U/L 6:57 PM CDT [employer] (AST), [facility] LAB Specimen Anatomical Collection Method Collection Time Receive d Time (Source) Location / / Volume Laterality Blood (Blood, 04/14/2018 1:22 PM 04/14/20 18 6:40 Venous) CDT PM CDT Lidya Beltran M.D. LAB BLOOD ADD-ON Performing Organization Address City/[facility]/ZIP Code Phon e Number [facility] [address] [place] [address] LAB ALT (Alanine Aminotransferase) (04/14/2018 1:22 PM CDT) [facility] Method Time Signature Alanine 24 7 - 45 04/14/2018 [facility] Aminotransferase U/L 6:57 PM CDT [facility] (ALT)[facility] LAB Specimen Anatomical Collection Method Collection Time Receive d Time (Source) Location / / Volume Laterality Blood (Blood, 04/14/2018 1:22 PM 04/14/20 18 6:40 Venous) CDT PM CDT Lidya Beltran M.D. LAB BLOOD ADD-ON Performing Organization Address City/[facility]/ZIP Code Phon e Number [facility] [address] [place] [address] LAB (ABNORMAL) 25-Hydroxyvitamin D2 and D3 (04/14/2018 1:22 PM CDT) athologist Signature 25-Hydroxy D2 <4.0 ng/mL 04/17/2018 [facility] 2:51 PM CDT [facility] 25-Hydroxy D3 15 ng/mL 04/17/2018 [facility] 2:51 PM CDT [facility] 25-Hydroxy D 15 (L) ng/mL 04/17/2018 [facility] Total 2:51 PM CDT [facility] Comment: Interpretation: 10-19 ng/mL (mild to mod erate deficiency) ----REFERENCE VALUE---- 25-HYDROXY D TOTAL (D2+D3) Optimum level s in the healthy population are 20-50, patients with bone disease may benefit from higher levels within this r june. ----ADDITIONAL INFORMATION---- This test was developed and its performa nce characteristics determined by [facility] in a manner consistent with CLIA requirements. This test has not been cleared or approved by the [place] and Drug Administration. Specimen Anatomical Collection Method Collection Time Receive d Time (Source) Location / / Volume Laterality Blood (Blood, 04/14/2018 1:22 PM 04/15/20 7:57 Venous) CDT AM CDT Lidya Beltran M.D. LAB BLOOD ADD-ON Performing Organization Address City/State/ZIP Code Phon e Number [facility] [address] [place], [place] [address] [place] [address] CENTER Syphilis IgG Antibody with Reflex (04/14/2018 1:22 PM CDT) athologist Signature Syphilis IgG Negative Negative 04/15/2018 [facility] Ab, S 3:40 PM CDT [facility] Comment: No serologic evidence of exposu re to syphilis. Specimen Anatomical Collection Method Collection Time Receive d Time (Source) Location / / Volume Laterality Blood (Blood, 04/14/2018 1:22 PM 04/15/20 18 Venous) CDT 12:42 PM CDT Lidya Beltran M.D. LAB BLOOD ADD-ON Performing Organization Address City/State/ZIP Code Phon e Number [facility]- [address] [place] [phone] [place] LAB Rubella Antibodies, IgG (04/14/2018 1:22 PM CDT) athologist Signature Rubella Ab, Negative 04/15/2018 [facility] IgG, S 3:40 PM CDT [facility] Comment: ----REFERENCE VALUE---- Vaccinated: Positive (>=1.0 AI) Unvaccinated: Negative (<=0.7 AI) Rubella IgG Antibody Index 0.6 04/15/2018 3: 40 PM CDT [facility] LAB Specimen Anatomical Collection Method Collection Time Receive d Time (Source) Location / / Volume Laterality Blood (Blood, 04/14/2018 1:22 PM 04/15/20 18 Venous) CDT 12:42 PM CDT Lidya Beltran M.D. LAB MICROBIOLOGY - BLOOD ORD ERABLES Performing Organization Address [facility] Phon e Number [address] [phone] [place] LAB HIV-1/-2 Ag and Ab Screen (04/14/2018 1:22 PM CDT) Analysis Performed At Patho logist Time Signature HIV-1/-2 Ag Non-Reacti Non-Reacti 04/15/2018 [facility] and Ab Screen, ve ve 3:40 PM CDT [facility] LAB HIV-1 Ab, S Non-Reacti Non-Reacti 04/15/2018 [facility] ve ve 3:40 PM CDT [facility] HIV-1 Ag, S Non-Reacti Non-Reacti 04/15/2018 [facility] ve ve 3:40 PM CDT [facility] HIV-2 Ab, S Non-Reacti Non-Reacti 04/15/2018 [facility] ve ve 3:40 PM CDT [facility] Specimen Anatomical Collection Method Collection Time Receive d Time (Source) Location / / Volume Laterality Blood (Blood, 04/14/2018 1:22 PM 04/15/20 18 Venous) CDT 12:41 PM CDT Lidya Beltran M.D. LAB MICROBIOLOGY - BLOOD ORD ERABLES Performing Organization Address [facility] Phon e Number [facility]- [address] [place] [address], [place] [phone] [place] LAB Hepatitis B Surface Antigen (04/14/2018 1:22 PM CDT) Patholo gist Method Time Signature HBs Antigen, Nonreactive Nonreactive 04/14/2018 [facility] S 9:55 PM CDT [facility] LAB Comment: Biotin has been identified by the [...] Location / / Volume Laterality Blood (Blood, 04/14/2018 1:22 PM 04/14/20 18 9:20 Venous) CDT PM CDT Lidya Beltran M.D. LAB MICROBIOLOGY - BLOOD ORD ERABLES Performing Organization Address City/State/ZIP Code Phon e Number [facility]- [address] [place] [address] [place] LAB CBC with Differential, Blood (04/14/2018 1:22 PM CDT) athologist Signature Hemoglobin 12.4 11.6 - 04/14/2018 [facility] 15.0 g/dL 1:33 PM CDT [facility] LAB Hematocrit 37.4 35.5 - 04/14/2018 [facility] 44.9 % 1:33 PM CDT [facility] LAB Erythrocytes 4.13 3.92 - 04/14/2018 [facility] 5.13 1:33 PM CDT HEALTH x10(12)/L [facility] LAB MCV 90.6 78.2 - 04/14/2018 [facility] 97.9 fL 1:33 PM CDT [facility] RBC Distrib Width 13.0 12.2 - 04/14/2018 [facility] 16.1 % 1:33 PM CDT [facility] Platelet Count 273 157 - 371 04/14/2018 [facility] x10(9)/L 1:33 PM CDT [facility] Leukocytes 7.4 3.4 - 9.6 04/14/2018 [facility] x10(9)/L 1:33 PM CDT [facility] Neutrophils 3.94 1.56 - 04/14/2018 [facility] 6.45 1:33 PM CDT HEALTH x10(9)/L [facility] [place] [facility] Lymphocytes 2.95 0.95 - 04/14/2018 [facility] 3.07 1:33 PM CDT HEALTH x10(9)/L [facility] [place] [facility] Monocytes 0.35 0.26 - 04/14/2018 [facility] 0.81 1:33 PM CDT HEALTH x10(9)/L [facility] [place] [facility] Eosinophils 0.11 0.03 - 04/14/2018 [facility] 0.48 1:33 PM CDT HEALTH x10(9)/L [facility] [place] [facility] Basophils 0.02 0.01 - 04/14/2018 [facility] 0.08 1:33 PM CDT [facility]ALTH x10(9)/L [facility] [place] [facility] Specimen Anatomical Collection Method Collection Time Receive d Time (Source) Location / / Volume Laterality Blood (Blood, 04/14/2018 1:22 PM 04/14/20 18 1:33 Venous) CDT PM CDT Lidya Beltran M.D. LAB BLOOD ADD-ON Performing Organization Address City/State/ZIP Code Phon e Number [facility]- [address] [place] [address] [place] [facility]- [address] [place], [place] [address] [place] LAB ABORh, RBC (04/14/2018 1:22 PM CDT) athologist Signature ABO Group O 04/15/2018 [facility] 11:[address] [facility] LAB Rh Type POS 04/15/2018 [facility] 11:28 AM T [facility] LAB Specimen Anatomical Collection Method Collection Time Receive d Time (Source) Location / / Volume Laterality Blood (Blood, 04/14/2018 1:22 PM 04/14/20 18 9:19 Venous) CDT PM CDT Lidya Beltran M.D. LAB BLOOD BANK TEST ORDERABL ES Performing Organization Address City/State/ZIP Code Phon e Number [facility]- [address] [place] [address] [place] [facility] Antibody Screen, RBC (04/14/2018 1:22 PM CDT) athologist Signature Antibody Screen NEG 04/15/2018 [facility] 11:28 AM CDT [facility] LAB Specimen Anatomical Collection Method Collection Time Receive d Time (Source) Location / / Volume Laterality Blood (Blood, 04/14/2018 1:22 PM 04/14/20 18 9:19 Venous) CDT PM CDT Authorizing Provider Result Tony Beltran M.D. LAB BLOOD BANK TEST ORDERABL ES Performing Organization Address City/[facility]/ZIP Code Phon e Number [facility]- [address] [place] [address] [place] [facility] Protein/Creatinine Ratio, Random, Urine (04/14/2018 1:16 PM CDT) Analysis Performed At Patho logist Time Signature Protein, Total, 11 mg/dL 04/14/2018 [facility] Random, U 4:20 PM CDT [facility] Creatinine 140 mg/dL 04/14/2018 [facility] Concentration 4:20 PM CDT [facility] Protein/Creatinine 0.08 <0.18 04/14/2018 [facility] Ratio mg/mg 4:20 PM CDT [facility] Specimen Anatomical Collection Method Collection Time Receive d Time (Source) Location / / Volume Laterality Urine (Urine, 04/14/2018 1:16 PM 04/14/20 18 3:24 Clean Catch) CDT PM CDT Lidya Beltran M.D. LAB URINE ORDERABLES Performing Organization Address City/[facility]/ZIP Code Phon e Number [facility] [address] [place] [address] LAB Bacterial Culture, Aerobic + Susc, Urine (04/14/2018 1:16 PM CDT) Analysis Performed At [facility] Signature Bacterial Mixed 04/15/2018 [facility] Culture, say. 4:08 PM CDT [facility] Aerobic, [facility] Specimen Anatomical Collection Method Collection Time Receive d Time (Source) Location / / Volume Laterality Urine (Urine, 04/14/2018 1:16 PM 04/14/20 18 Midstream) CDT 11:38 PM CDT Comment: Specimen Source Site: Urine Lidya Beltran M.D. LAB MICROBIOLOGY - GENERAL O RDERABLES Performing Organization Address City/State/ZIP Code Phon e Number [address] [address] LAB documented in this encounter Visit Diagnoses Diagnosis Examination Other Normal Pregna ncy First Trimester (HCC) - Primary With Personal History Preeclam psia Previous ([facility]) Maternal Care Due To Uterine Scar From O ther Previous Surgery ([facility]) Personal History Intrauterine Growth Res triction High Risk ([facility]) Depression Anxiety Body Mass Index 45.0 To 49.9 Adult ([facility]) documented in this encounter Additional Health Concerns Assessment Noted Time PHQ-9 Depression Total Score: 1 11/16/2012 11:45 AM CS T documented as of this encounter
--- OUTSIDE RECORDS SUMMARY | 2022-07-09 20:42 | XMS_ITS | Encounter Summary ---
:1990 Author Organization [facility] Address [address] [place] [address] Care Team Providers Name Role Phone Unavailable Primary Care Provider Unavailable Encounter Details Date Type Department Care Team Description 05/27/2018 Ancillary Procedure Department of Obstetrics Mannie encarnacion, and Gynecology in [place], [place] [address] [facility] [phone] Social History Tobacco Use Types Packs/Day Years [...] or relatives? How often do you attend yazdanism or Never 2020 denominational services? Do you belong to any clubs or No 06/25/2021 organizations such as yazdanism groups, unions, fraternal or athletic groups, or [...] in this encounter Results US OB Limited (05/27/2018 4:32 PM CDT) [...] located with the images in Qreads. Lidya ELIZABETH OB US PROCEDURES documented in this encounter Visit Diagnoses Not on filedocumented in this encounter Additional Health Concerns Assessment Noted Time PHQ-9 Depression Total Score: 1 11/16/2012 11:45 AM CS T documented as of this encounter
--- OUTSIDE RECORDS SUMMARY | 2022-07-09 20:42 | XMS_ITS | Encounter Summary ---
:1990 Author Organization [facility] Address [address] [place] [address] Care Team Providers Name Role Phone Unavailable Primary Care Provider Unavailable Encounter Details Date Type Department Care Team Description 06/21/2018 Hospital Encounter Department of Dana Hanson ion Laboratory Medicine Ramonita Bose Other Normal in [place], [address] Tr[address] [place] [address] [phone] Social History Tobacco Use Types Packs/Day Years [...] do you attend jew or Never 2020 alevism services? Do you [...] by 90 tablet 3 03/24/2018 03/24/20 19 xywrdtk-eqpivocu-wdgi mouth daily. fumarate-FA (VINATE M) 27-1 mg [...] Name Priority Date/Time Associated Diagnosis Comme nts GLUCOSE WILBERT, 1HR, Routine 06/21/2018 2:46 PM Examination Prena katlyn Results for this S/P CDT Other Normal procedure are i n First the results Trimester section. documented in this encounter Results Glucose Tolerance Test, 1 hour (06/21/2018 2:46 PM CDT) P athologist Signature Glucose Wilbert, 1 90 <130 mg/dL 06/21/2018 [facility] hr, S 6:[address] [facility] Specimen Anatomical Collection Method Collection Time Receive d Time (Source) Location / / Volume Laterality Blood (Blood, 06/21/2018 2:46 PM 06/21/20 18 5:40 Venous) CDT PM CDT Lidya Hanson M.D. LAB BLOOD NON ADD-ON Performing Organization Address City/State/ZIP Code Phon e Number [facility] [address] [place] [address] LAB documented in this encounter Visit Diagnoses Diagnosis Examination Other Normal Pregna ncy First Trimester (HCC) documented in this encounter Additional Health Concerns Assessment Noted Time PHQ-9 Depression Total Score: 1 11/16/2012 11:45 AM CS T documented as of this encounter
--- OUTSIDE RECORDS SUMMARY | 2022-07-09 20:42 | XMS_ITS | Encounter Summary ---
:1990 Author Organization [facility] Address [address] [place] [address] Care Team Providers Name Role Phone Unavailable Primary Care Provider Unavailable Reason for Referral Outpatient (Routine) - Closed Specialty Diagnoses / Procedures Referred By Contact Refer red To Contact Obstetrics and ROSENDO Hanson DON [facility] Gyne[facility] [place] [address] [place] [address] Referral ID Status Reason Start Date Expiration Date Visits Requ ested Visits Authorized [id number] Closed 03/24/2018 03/24/2019 1 1 Encounter Details Date Type Department Care Team Description 03/24/2018 Clinical Communication Department of Hanna Riggins Obstetrics and R.N. Gynecology in [address] [place], [place] [address] [place] [id number] [place], [place] [phone] (Wo rk) [phone] Social History Tobacco Use Types Packs/Day Years [...] or relatives? How often do you attend moravian or Never 2020 hoahaoism services? Do you belong to any clubs or No 06/25/2021 organizations such as moravian groups, unions, [employer] or athletic groups, or school groups? How [...] or slept in a penitentiary (including now)? Sex Assigned at Date Recorded Female 04/12/2018 10:21 PM CDT documented as of this encounter Miscellaneous Notes Telephone Encounter - Fatuma Salazar R.N. - 03/28/2018 3:36 PM CDT Patient notified. Instructions discusse. Telephone Encounter - Lidya Hanson M.D. - 03/28/2018 3:26 PM CDT Please let her know that I reviewed the hormone levels, and they were rising appropriately. Therefore, I do not think further testing of the hormone levels would be helpful. It will be also helpful to do an ultrasound on the to evaluate the . If she has further concerns prior to that visit, she should let us know. Otherwise, we will plan to see her then. Telephone Encounter - Diamond Johnson L.P.N. - 03/28/2018 12:56 PM CDT Spoke with patient. States she was seen in the ER today for pain around her c- section scar. Denies vaginal bleeding or LOF. States she was given Sucralfate in the ER to help her abd. pain and nausea which did improve. She was also given a Rx for this to take at home as needed. Patient states she is not taking Spironolactone and stopped the day she found out she was . C/o swelling especially in her legs and feet but states she stands a lot at work. I did offer patient appointment on 04/14 at 11 am. The patient will follow up at that time. Patient thought the ER provider had wanted her to have another Beta Hcg drawn to ensure appropriate rise. Please review ER records in care everywhe re and advise if any further follow up is needed before her scheduled appt. on 04/14. Telephone Encounter - Fatuma Salazar R.N. - 03/28/2018 8:24 AM CDT Called [facility]bra. No answer. LM to call clinic back. Telephone Encounter - Lidya Hanson M.D. - 03/25/2018 8:07 PM CDT Please find out if she is still taking spironolactone. If she is, she needs to stop taking this. Also, I would like to see her on April 14 or , if possible, rather than later in the month. Please help to coordinate this. Telephone Encounter - Hanna Riggins R.N. - 03/24/2018 10:22 AM CDT Patient called with positive test. She had serial Hcg at [facility] on 03/22=24 and on 03/24=93 LMP 02/23/18 [place] 11/30/18 5 Para 4 Type of Delivery x4 Any complications with previous pregnancies?PRE-ECLAMPSIA with last . [facility] at [facility] with a 33 week delivery. Past Medical History ( hypertension, diabetes, thyroid)State she is having headaches. She was evaluated by Zohreh Beaulieu on 03/21/18 and prescribed Imitrex and Topiramate. She has not taken either since positive test. She said that she is resting for headaches. Advised may take tylenol, force fluids, and should call if no relief from those measure. She also said that she is having nausea-discussed jamee tablets, vitamin B6 25mg And unisom 1/2 tablet. Discussed TUMS for heartburn. Zika Screen: negative PNV sent to Aftab Goldman per nursing protocol. Transferred to [facility] to schedule NOB appointment. Please advise if you have any other recommendations.Thank you . Telephone Encounter - Hanna Riggins R.N. - 03/24/2018 9:54 AM CDT documented in this encounter Plan of Treatment Scheduled Referrals Name Type Priority Associated Order Schedule Diagnoses Obstetrics and Outpatient Referral Routine Expect ed: Gynecology office 03/24/2018 visit (clinic) (Approximate) , Expires: 03/24/2021 documented as of this encounter Visit Diagnoses Diagnosis Encounter For Supervision Of Other Kiana dobbins Unspecified Trimester (HCC) - Primary documented in this encounter Additional Health Concerns Assessment Noted Time PHQ-9 Depression Total Score: 1 11/16/2012 11:45 AM CS T documented as of this encounter
--- OUTSIDE RECORDS SUMMARY | 2022-07-09 20:42 | XMS_ITS | Encounter Summary ---
:1990 Author Organization [facility] Address [address] [place] [address] Care Team Providers Name Role Phone Unavailable Primary Care Provider Unavailable Encounter Details Date Type Department Care Team Description 04/14/2018 Hospital Encounter Department of Dana Hanson Other Normal First Trimester; Laboratory Medicine Ramonita Bose With Personal History Preeclam psia Previous in [place], [address] [place] [phone] Social History Tobacco Use Types Packs/Day Years [...] you attend jehovah's witness or Never 2020 tenriism services? Do you belong to any clubs [...] place to sleep or slept in a fci (including now)? Sex Assigned at Date Recorded Female 04/12/2018 10:21 PM CDT documented as of this encounter Medications at Time of Discharge Medication Sig Dispensed Refills Start Date End Date ergocalciferol (DRISDOL) Take 1 capsule 8 capsule 0 018 06/07/2018 50,000 Unit capsule (50,000 Units total) by mouth once a week for 8 doses. Take 1 tablet by 90 tablet 3 03/24/2018 03/24/20 [id number] mouth daily. fumarate-FA (VINATE M) 27-1 mg per tablet spironolactone (ALDACTONE) 0 8 05/27/2018 25 mg tablet SUMAtriptan (IMITREX) 50 0 03/21/2018 05/27/2018 mg tablet topiramate (TOPAMAX) 50 mg 0 8 05/27/2018 tablet venlafaxine XR 0 02/10/2018 05/27/2018 (EFFEXOR-XR) 150 mg 24 hr capsule documented as of this encounter Plan of Treatment Not on filedocumented as of this encounter Procedures Procedure Name Priority Date/Time Associated Diagnosis Comme nts URINALYSIS, Routine 04/14/2018 1:16 PM Examination R esults for this DIPSTICK CDT Other Normal procedure are i n First the results Trimester section. With Personal History Preeclampsia Previous BACTERIAL CULTURE, Routine 04/14/2018 1:16 PM Examination Pren atal Results for this AEROBIC + SUSC, CDT Other Normal procedure ar e in URINE First the results Trimester section. PROTEIN/CREATININE Routine 04/14/2018 1:16 PM Examination Pren atal Results for this RATIO, RANDOM, CDT Other Normal procedure are in URINE First the results Trimester section. documented in this encounter Results Urinalysis, Dipstick (04/14/2018 1:16 PM CDT) P athologist Signature Source Midstream 04/14/2018 [facility] 1:44 PM CDT [facility] Clarity Clear Clear 04/14/2018 [facility] 1:44 PM CDT [facility] Color Yellow 04/14/2018 [facility] 1:44 PM CDT [facility] Comment: ----REFERENCE VALUE---- Colorless Yellow Jaimee Blood Negative Negative 04/14/2018 1:44 PM CDT [facility] [place] Nitrite Negative Negative 04/14/2018 1:44 PM CDT [facility] Leukocyte Esterase Negative Negative 04/14/2018 1:44 PM CD T [facility] [place] [facility] Protein Negative mg/dL 04/14/2018 1:44 PM CDT [facility] Comment: ----REFERENCE VALUE---- Negative Trace Glucose Negative Negative mg/dL 04/14/2018 1:[address] [facility] Ketones, QI(U) Negative Negative mg/dL 04/14/2018 1:44 PM [facility] [place] [facility] Bilirubin Negative Negative 04/14/2018 1:44 PM [facility] [place] [facility] pH 5.0 5.0 - 8.0 04/14/2018 1:44 PM [facility] Specific [place] 1.025 1.001 - 1.035 04/14/2018 1:44 PM [facility] Urobilinogen 0.2 0.2 - 1.0 mg/dL 04/14/2018 1:44 PM [facility] Specimen Anatomical Collection Method Collection Time Receive d Time (Source) Location / / Volume Laterality Urine (Urine, 04/14/2018 1:16 PM 04/14/20 18 1:39 Clean Catch) CDT PM CDT Lidya Hanson M.D. LAB URINE ORDERABLES Performing Organization Address City/State/ZIP Code Phon e Number [facility] [address] [facility] [place] [address] [facility] [address] [place] [address], [place] [address] [place] [address] [place] [facility] Protein/Creatinine Ratio, Random, Urine (04/14/2018 1:16 PM CDT) Analysis Performed At Patho logist Time Signature Protein, Total, 11 mg/dL 04/14/2018 [facility] Random, U 4:20 PM T [facility] [place] [facility] Creatinine 140 mg/dL 04/14/2018 [facility] Concentration 4:20 PM CDT [facility] Protein/Creatinine 0.08 <0.18 04/14/2018 [facility] Ratio mg/mg 4:20 PM CDT [facility] Specimen Anatomical Collection Method Collection Time Receive d Time (Source) Location / / Volume Laterality Urine (Urine, 04/14/2018 1:16 PM 04/14/20 18 3:24 Clean Catch) CDT PM CDT Lidya Hanson M.D. LAB URINE ORDERABLES Performing Organization Address City/[facility]/ZIP Code Phon e Number [facility] [address] [place] [address] LAB Bacterial Culture, Aerobic + Susc, Urine (04/14/2018 1:16 PM CDT) Analysis Performed At Patho logist Time Signature Bacterial Mixed 04/15/2018 [facility] Culture, say. 4:08 PM CDT [facility] Specimen Anatomical Collection Method Collection Time Receive d Time (Source) Location / / Volume Laterality Urine (Urine, 04/14/2018 1:16 PM 04/14/20 18 Midstream) CDT 11:38 PM CDT Comment: Specimen Source Site: Urine Lidya Hanson M.D. LAB MICROBIOLOGY - GENERAL O RDERABLES Performing Organization Address City/[facility]/ZIP Code Phon e Number [facility] [address] [place] [address] LAB documented in this encounter Visit Diagnoses Diagnosis Examination Other Normal Pregna ncy First Trimester (HCC) With Personal History Preeclam psia Previous (HCC) documented in this encounter Additional Health Concerns Assessment Noted Time PHQ-9 Depression Total Score: 1 11/16/2012 11:45 AM CS T documented as of this encounter
--- OUTSIDE RECORDS SUMMARY | 2022-07-09 20:42 | XMS_ITS | Encounter Summary ---
:1990 Author Organization [facility] Address [address] [place] [address] Care Team Providers Name Role Phone Unavailable Primary Care Provider Unavailable Encounter Details Date Type Department Care Team Description 02/20/2016 Hospital Encounter HX [facility] Niltno Sellers, SOCIOLOGY INSTRUCTOR, C.N.P. [address] [place], [place] [phone] (Wo rk) Social History [...] or relatives? How often do you attend christian or Never 2020 congregational services? Do you belong to any clubs or No 06/25/2021 organizations such as christian groups, unions, fraternal or athletic groups, or [...] Sign Reading Time Taken Comments Blood Pressure 102/70 02/20/2016 8:23 AM CDT Pulse - - Temperature - - Respiratory Rate - - Oxygen Saturation - - Inhaled Oxygen Concentration - - Weight 95.5 kg (210 lb 8.6 oz) 02/20/2016 8:23 AM CDT Height 149 cm (4' 10.66) 02/20/2016 8:23 AM CDT Body Mass Index 43.02 02/20/2016 8:23 AM CDT documented in this encounter Progress Notes Nilton Whiting APRN, C.N.P. - 02/20/2016 8:17 AM CDT [id number] CHIEF COMPLAINT/REASON FOR VISIT Vaginal discharge during . HISTORY OF PRESENT ILLNESS Norah is a 25-year-old 4, para 3-0-0-3 ( section x3) who states that she has been getting her care at the [facility] from Dr. Bobby. We were able to obtain her ultrasounds but do not have her record as of yet. She was scheduled to see Dr. Aponte in our clinic for transfer of care due to previous on 01/31/2016 but she no-showed that visit. EDC is 06/12/2016 based on 1st-trimester ultrasound performed it 8+0 days gestation at the [facility] which makes her 23 and 6/7 weeks gestation today. She notes that her first trimester was complicated by about 4 weeks of spotting. Otherwise she states that she has had an uncomplicated . I do have a normal anatomy screen that was performed on 01/21/2016. Patient presents today due to concerns surrounding vaginal discharge. She describes some greenish-colored thick curdy vaginal discharge that has been going on for a few days now. She is unsure as to exactly when that started but states that it has progressively been getting a little bit more problematic. She recently started noticing an odor as well as some increased pressure in her pelvic area andvagina. She has not had any spotting or bleeding. She denies any itching or burning. No fevers, chills, or body aches. No excessive urinary urgency or frequency. No pain with urination. No fevers, chills, or body aches. No changes in her bowel function. She notes that her fetus has been active. She is . States that she and her are monogamous. Has no concerns about STDs but is interested in repeat gonorrhea and chlamydia testing today along with vaginitis pain. MEDICATIONS vitamins. ALLERGIES Cats. PAST MEDICAL/SURGICAL HISTORY MEDICAL HISTORY: 1. History of pelvic adhesions. 2. Family history of diabetes. 3. Anxiety with depression. SURGICAL HISTORY: 1. section 06/20/2014. 2. section 06/01/2013. 3. IUD insertion 03/10/2010. 4. section 11/26/2009. VITAL SIGNS Blood pressure 102/70, height 149, weight 95.5. Tobacco use: No. PHYSICAL EXAMINATION GENERAL: She is a well-appearing female, in no acute distress. SKIN: Warm, dry, and pink. No rashes, lesions or bruising. HEENT: Vision and hearing grossly intact. ABDOMEN: Soft and nontender. Gravid. Fundal height 24 cm. heart tones 150. PELVIS: External genitalia appears slightly erythemic. Upon speculum examination, vaginal mucosa does appear erythemic. Cervix is visualized, appears erythemic, otherwise closed and within normal limits. There is abnormal discharge throughout the vagina that is dark yellow to light green in color. It does appear thick, curdy, creamy texture. Vaginitis swab obtained. Gonorrhea and chlamydia obtained. IMPRESSION/REPORT/PLAN Concern surrounding possible vaginitis during . PLAN: I will plan to give her a call at [phone] with her vaginitis panel results yet today. If a prescription is required she would like that sent to [facility] in [place]. We discussed that the gonorrhea and chlamydia results will take a few days to get back. She has indicated she would like me to call her only if they are positive. Otherwise she can review them at her next visit. I would like her to return to see Dr. Hanson to establish OB care, as that is who she would like to see for her , sometime in the next 2 weeks. She will schedule that on her way out today. We reviewed precautions and reasons that she should return prior to that time. She verbalizes understanding. Has no further concerns or questions and will await my phone call. Nilton Whiting CNP/ruiz Electronically Signed By: NILTON WHITING APRN, CNP On: 02/21/2016 08:42 AM Source: [facility] [email or web address] Document Id: [id number] documented in this encounter Miscellaneous Notes Miscellaneous - Nilton Whiting APRN, C.N.P. - 02/20/2016 12:07 PM CDT Results Notification Document Contains Addenda Addendum by ALDEN HONG LPN on February 20, 2016 16:48:44 CDT Message left for patient. From: NILTON WHITING APRN ARCHITECTURAL JOB CAPTAIN To: CHARLIE Obstetrics/Gynecology Nurse; Sent: 02/20/2016 12:07:19 CDT ! Show up: 02/20/2016 12:07:19 CDT Subject: Results Notification Actions: Notify patient of results Reminder Comments: I tried calling her, but straight to voicemail. Please call her and let her know she has a yeast infection. Rx for diflucan 1 tab today, 2nd in 3 days was faxed to [facility] in [place]. FU in 1 wk if sxs persisit. Bel Mcqueen Results: Date Result Type Ind Result Name MBO POS Vaginosis Panel, DNA Source: [facility] POWERCHART Document Id: [id number] Miscellaneous - Nilton Whiting APRN, C.N.P. - 02/20/2016 8:59 AM CDT Ambulatory Patient Summary [facility] [address] [place] [id number] Visit Information Name: NORAH HDZ [facility] Number: [id number] Current Date: 02/20/2016 08:59:50 Physicians Attending Provider: NILTON WHITING APRN, CNP Primary Care Provider: PCP, ELSEWHERE NORAH HDZ has been given the following [...] Take Indications/Special Instructions/Comments/Notes for Patient Medication Changes/Routing multivitamin, ( Multivitamins) Oral, once a day Stop Taking the Following Medications: Medication list as of 02-20-16 08:59 Attention: If you have any medications at home that are not on this list, DO NOT take them until youcontact your provider for clarification. Give a copy of your medication list to your primary care provider. Update your medication list any time medications or doses are changed and carry your medication list at all times in case of emergency. Electronically Signed By: NILTON WHITING APRN ARCHITECTURAL JOB CAPTAIN Signed On:20-FEB-2016 08:59:48 Your Allergies & Intolerances Substance Reaction Symptoms [...] if you dont have one. Go to [email or web address] and click on Create Your Account. Then, follow the directions to complete the online form. Youll be asked for your [facility] number which you can find at the top of this document. Your Goals/Additional instructions: Source: [facility] POWERCHART Document Id: [id number] Miscellaneous - Nilton Whiting APRN, C.N.P. - 02/20/2016 8:59 AM CDT Ambulatory Discharge Medication List [address] [id number] Visit Information Name: GARYNORAH WINSLOW [facility] Number: [id number] Visit Date: 02/20/2016 08:59:50 Attending Provider: NILTON WHITING APRN, CNP Primary Care Provider: PCP, NIYA NORAH HDZ [...] Take Indications/Special Instructions/Comments/Notes for Patient Medication Changes/Routing multivitamin, ( Multivitamins) Oral, once a day Stop Taking the Following Medications: Medication list as of 02-20-16 08:59 Attention: If you have any medications at home that are not on this list, DO NOT take them until youcontact your provider for clarification. Give a copy of your medication list to your primary care provider. Update your medication list any time medications or doses are changed and carry your medication list at all times in case of emergency. Electronically Signed By: NILTON WHITING APRN, CNP Signed On:20-FEB-2016 08:59:48 Additional Information: Source: [facility] [employer]CHART Document Id: [id number] Miscellaneous - Alden Hong, L.P.N. - 02/20/2016 8:59 AM CDT New Accounts Clerk Documentation New Accounts Clerk Documentation Entered On: 02/20/2016 8:59 CDT Performed On: 02/20/2016 8:59 CDT by ALDEN HONG LPN New Accounts Clerk Documentation Exam/Procedure Performed : Pelvic exam CD New Accounts Clerk Present : Yes CD New Accounts Clerk Name : Vivien Hong LPN Present in Room During Exam/Procedure : Alone ALDEN HONG LPN - 02/20/2016 8:59 CDT Source: [facility] POWERCHART Document Id: [id number] CDT!6 Miscellaneous - Alden Hong L.P.NWander - 02/20/2016 8:23 AM CDT Adult Rnfa Intake/History Adult Rnfa Intake/History Entered On: 02/20/2016 8:25 CDT Performed On: 02/20/2016 8:23 CDT by ALDEN HONG LPN Intake Chief Complaint : OB visit 23 LMP Date : 09/04/2015 Systolic Blood Pressure : 102 mmHg Diastolic Blood Pressure : 70 mmHg NIBP Mean : 81 mmHg BP Location : Right upper extremity Blood Pressure Cuff Size : Regular Height : 149 cm(Converted to: 4 ft 11 inch(es), 59 inch(es)) Actual Weight : 95.5 kg(Converted to: 210 lb 9 oz) Weight Source : Standing scale Dosing Weight Clinic : 95.5 kg Clinic BSA : 1.99 Body Mass Index : 43.02 kg/m2 ALDEN HONG LPN - 02/20/2016 8:23 CDT General Info Languages : Malagasy Is Patient Female and 13-50 no hysterectomy : Yes Status : Confirmed positive Are you ? : No ALDEN HONG LPN - 02/20/2016 8:23 CDT Subjective Pain Symptoms : No ALDEN HONG LPN - 02/20/2016 8:23 CDT Dependent Habits Exposure to Tobacco Smoke : Lives with someone who smokes, Other: none Smoking Status : Never smoker Tobacco 2A : No Tobacco Use/Currently Using : No Tobacco Use/Last 30 Days : No Tobacco Use/Last 12 months : No ALDEN HONG LPN - 02/20/2016 8:23 CDT Caffeine Use Grid Caffeine Use : Current Type : Coffee Frequency : Daily ALDEN HONG LPN - 02/20/2016 8:23 CDT Source: [employer] POWERCHART Document Id: [id number] CDT!34 documented in this encounter Plan of Treatment Not on filedocumented as of this encounter Procedures Procedure Name Priority Date/Time Associated Comments Diagnosis VAGINITIS BATTERY, Routine 02/20/2016 9:00 AM Res ults for this DNA (GENITAL) CDT procedure are in the results section. CHLAMYDIA/GONORRHOEAE Routine 02/20/2016 9:00 AM Results for this AMPLIFIED RNA CDT procedure are in the results section. CHLAMYDIA TRACHOMATIS Routine 02/20/2016 9:00 AM Results for this AMPLIFIED RNA CDT procedure are in the results section. documented in this encounter Results Chlamydia / Gonorrhoeae Amplified RNA (02/20/2016 9:00 AM CDT) Component Value Ref Test Analysis Performed At [facility] [employer] [place] Method Time Signature HX GC by Nucleic POWERCHART Acid Amplification HXFinal Negative for POWERCHART Neisseria gonorrhea by RNA amplification . HXFinal Reference: POWERCHART Negative HXFinal If you POWERCHART submitted a female urine sample, please note it is a Laboratory Developed Test. Specimen (Source) Anatomical Collection Method Collection Time Re ceived Time Location / / Volume Laterality Cervix/Endocervix 02/20/2016 9:00 AM CDT Nilton Whiting APRN, C.N.P. LAB MICROBIOLOGY - GENE RAL ORDERABLES Performing Organization Address City/State/[facility] Code Phon e Number POWERCHART Chlamydia Trachomatis Amplified RNA (02/20/2016 9:00 AM CDT) Component Value Ref Test Analysis Performed At [facility] [employer] Method Time Signature HXChlamydia by POWERCHART Nucleic Acid Amplification HXFinal Negative for POWERCHART Chlamydia trachomatis by RNA amplification. HXFinal Reference: POWERCHART Negative HXFinal If you POWERCHART submitted a female urine sample, please note it is a Laboratory Developed Test. Specimen (Source) Anatomical Collection Method Collection Time Re ceived Time Location / / Volume Laterality Cervix/Endocervix 02/20/2016 9:00 AM CDT Nilton Whiting APRN, C.N.P. LAB MICROBIOLOGY - GENE RAL ORDERABLES Performing Organization Address City/State/ZIP Code Phon e Number POWERCHART (ABNORMAL) VAGINITIS BATTERY, DNA (GENITAL) (02/20/2016 9:00 AM CDT) Component Value Ref Test Analysis Performed At [facility] [employer] [place] Method Time Signature HXVaginitis (POSITIVE) POWERCHART Battery, DNA (Genital) HXFinal Trichomonas POWERCHART vaginalis DNA negative HXFinal Gardnerella POWERCHART vaginalis DNA negative HXFinal Jailene species POWERCHART DNA positive HXFinal Reference: POWERCHART Negative Specimen (Source) Anatomical Collection Method Collection Time Re ceived Time Location / / Volume Laterality Vagina 02/20/2016 9:00 AM CDT Nilton Whiting APRN, C.N.P. LAB HISTORICAL ORDERS Performing Organization Address City/State/ZIP Code Phon e Number POWERCHART documented in this encounter Visit Diagnoses Not on filedocumented in this encounter Additional Health Concerns Assessment Noted Time PHQ-9 Depression Total Score: 1 11/16/2012 11:45 AM CS T documented as of this encounter
--- OUTSIDE RECORDS SUMMARY | 2022-07-09 20:42 | XMS_ITS | Encounter Summary ---
:1990 Author Organization [facility] Address [address] [place] [address] Care Team Providers Name Role Phone Unavailable Primary Care Provider Unavailable Encounter Details Date Type Department Care Team Description 01/12/2017 Hospital Encounter HX NO MAPPING Sumeet Hanson M.D. [address] [place], [place] [phone] (Wo rk) Social History [...] do you attend judaism or Never 2020 mandaeism services? Do you [...] documented as of this encounter Miscellaneous Notes Miscellaneous - Conversion, Historical Provider Ser - 01/12/2017 11:59 PM CDT Coding Summary-Paper Based CODING DATE: 01/21/[address] [facility] STATUS: * Discharged to Home or Self Care PAYOR: Self Pay ADMIT DX: REASON FOR VISIT DX: FINAL DX: PRINCIPAL: R30.0 Dysuria SECONDARY: PROCEDURES DOCTOR NAME DATE NOTE: The code number assigned matches the documented diagnosis and / or procedure in the patient's chart. However, the narrative phrase printed from the coding software may appear abbreviated, or result in slightly different terminology. Coded By: JUAN COOPER Date Saved: 01/21/2017 08:36 am Source: [email or web address] Document Id: [id number] documented in this encounter Plan of Treatment Not on filedocumented as of this encounter Visit Diagnoses Not on filedocumented in this encounter Additional Health Concerns Assessment Noted Time PHQ-9 Depression Total Score: 1 11/16/2012 11:45 AM CS T documented as of this encounter
--- OUTSIDE RECORDS SUMMARY | 2022-07-09 20:42 | XMS_ITS | Encounter Summary ---
:1990 Author Organization [facility] Address [address] [place] [address] Care Team Providers Name Role Phone Unavailable Primary Care Provider Unavailable Encounter Details Date Type Department Care Team Description 04/14/2018 Hospital Encounter Department of Dana Hanson ion Laboratory Medicine aRmonita Bose Other Normal in [place], [address] Trimester [address] [facility] [place] [phone] Social History Tobacco Use Types Packs/Day Years [...] or relatives? How often do you attend gnosticist or Never 2020 mandaeism services? Do you belong to any clubs or No 06/25/2021 organizations such as gnosticist groups, unions, fraternal or athletic groups, or [...] tablet by 90 tablet 3 03/24/2018 03/24/20 [id number] mouth daily. fumarate-FA (VINATE M) 27-1 mg [...] Comments Diagnosis SYPHILIS TOTAL AB W/ Routine 04/14/2018 1:22 Examination Resu lts for this REFLEX S PM CDT Other procedure are in Normal the results First Trimester section. HIV-1/-2 AG AND AB Routine 04/14/2018 1:22 Examination Result s for this SCREEN PM CDT Other procedure are in Normal the results First Trimester section. ABORH, RBC Routine 04/14/2018 1:22 Examination Results for this PM CDT Other procedure are in Normal the results First Trimester section. 25-HYDROXYVITAMIN D2 AND Routine 04/14/2018 1:22 Examination Results for this D3, S PM CDT Other procedure are in Normal the results First Trimester section. RUBELLA ANTIBODIES, IGG Routine 04/14/2018 1:22 Examination R esults for this PM CDT Other procedure are in Normal the results First Trimester section. HEPATITIS B SURFACE Routine 04/14/2018 1:22 Examination Resul ts for this ANTIGEN PM CDT Other procedure are in Normal the results First Trimester section. CBC WITH DIFFERENTIAL, B Routine 04/14/2018 1:22 Examination Results for this PM CDT Other procedure are in Normal the results First Trimester section. ANTIBODY SCREEN, B Routine 04/14/2018 1:22 Examination Result s for this PM CDT Other procedure are in Normal the results First Trimester section. BUN (BLOOD UREA Routine 04/14/2018 1:22 Examination Results f or this NITROGEN), S/P PM CDT Other procedure a re in Normal the results First Trimester section. ALANINE AMINOTRANSFERASE Routine 04/14/2018 1:22 Examination Results for this (ALT), S/P PM CDT Other procedure are in Normal the results First Trimester section. ASPARTATE Routine 04/14/2018 1:22 Examination Results for this AMINOTRANSFERASE (AST), PM CDT Other pr ocedure are in S/P Normal the results First Trimester section. CREATININE WITH EGFR, Routine 04/14/2018 1:22 Examination Res ults for this S/P PM CDT Other procedure are in Normal the results First Trimester section. documented in this encounter Results (ABNORMAL) Creatinine with Estimated GFR (04/14/2018 1:22 PM CDT) Analysis Performed At Patho logist Time Signature Creatinine 0.53 (L) 0.59 - 04/14/2018 [facility] 1.04 mg/dL 6:[address] [facility] eGFR-Non >90 >=60 04/14/2018 [facility] Black/ mL/min/BSA 6:57 PM CDT [facility] Comment: ----ADDITIONAL INFORMATION---- Estimated GFR calculated using the 2009 CKD_EPI creatinine equation. eGFR-Black/ >90 >=60 mL/min/BSA 2017 6:57 PM [facility] Comment: ----ADDITIONAL INFORMATION---- Estimated GFR calculated using the 2009 CKD_EPI creatinine equation. Specimen Anatomical Collection Method Collection Time Receive d Time (Source) Location / / Volume Laterality Blood (Blood, 04/14/2018 1:22 PM 04/14/20 18 6:40 Venous) CDT PM CDT Lidya Hanson M.D. LAB BLOOD ADD-ON Performing Organization Address City/State/ZIP Code Phon e Number [facility] [address] [place] [address] LAB BUN (Blood Urea Nitrogen) (04/14/2018 1:22 PM CDT) P athologist Signature BUN (Blood Urea 6 6 - 21 04/14/2018 [facility] Nitrogen), S mg/dL 6:57 PM CDT [facility] Specimen Anatomical Collection Method Collection Time Receive d Time (Source) Location / / Volume Laterality Blood (Blood, 04/14/2018 1:22 PM 04/14/20 18 6:40 Venous) CDT PM CDT Lidya Hanson M.D. LAB BLOOD ADD-ON Performing Organization Address City/[facility]/ZIP Code Phon e Number [facility] [address] [place] [address] LAB AST (Aspartate Aminotransferase) (04/14/2018 1:22 PM CDT) [facility] Method Time Signature Aspartate 20 8 - 43 04/14/2018 [facility] Aminotransferase U/L 6:57 PM CDT [place] (AST), [facility] Specimen Anatomical Collection Method Collection Time Receive d Time (Source) Location / / Volume Laterality Blood (Blood, 04/14/2018 1:22 PM 04/14/20 18 6:40 Venous) CDT PM CDT Lidya Hanson M.D. LAB BLOOD ADD-ON Performing Organization Address City/[facility]/ZIP Code Phon e Number [facility] [address] [address] LAB ALT (Alanine Aminotransferase) (04/14/2018 1:22 PM CDT) [facility] Method Time Signature Alanine 24 7 - 45 04/14/2018 [facility] Aminotransferase U/L 6:57 PM CDT [place] (ALT), [employer] [facility] [place] [facility] Specimen Anatomical Collection Method Collection Time Receive d Time (Source) Location / / Volume Laterality Blood (Blood, 04/14/2018 1:22 PM 04/14/20 18 6:40 Venous) CDT PM CDT Lidya Hanson M.D. LAB BLOOD ADD-ON Performing Organization Address City/[facility]/ZIP Code Phon e Number [facility] [address] [place] [address] LAB (ABNORMAL) 25-Hydroxyvitamin D2 and D3 (04/14/2018 1:22 PM CDT) athologist Signature 25-Hydroxy D2 <4.0 ng/mL 04/17/2018 [facility] 2:51 PM CDT [facility] 25-Hydroxy D3 15 ng/mL 04/17/2018 [facility] 2:51 PM CDT [facility] 25-Hydroxy D 15 (L) ng/mL 04/17/2018 [facility] Total 2:51 PM CDT [facility] Comment: Interpretation: 10-19 ng/mL (mild to mod erate deficiency) ----REFERENCE VALUE---- 25-HYDROXY D TOTAL (D2+D3) Optimum level s in the healthy population are 20-50, patients with bone disease may benefit from higher levels within this r june. ----ADDITIONAL INFORMATION---- This test was developed and its performa nce characteristics determined by [facility] in a manner consistent with CLIA requirements. This test has not been cleared or approved by the [place] and Drug Administration. Specimen Anatomical Collection Method Collection Time Receive d Time (Source) Location / / Volume Laterality Blood (Blood, 04/14/2018 1:22 PM 04/15/20 7:57 Venous) CDT AM CDT Lidya Hanson M.D. LAB BLOOD ADD-ON Performing Organization Address City/State/ZIP Code Phon e Number [facility] [address] [place], [place] [address] [facility] Syphilis IgG Antibody with Reflex (04/14/2018 1:22 PM CDT) athologist Signature Syphilis IgG Negative Negative 04/15/2018 [facility] Ab, S 3:40 PM CDT [facility] Comment: No serologic evidence of exposu re to syphilis. Specimen Anatomical Collection Method Collection Time Receive d Time (Source) Location / / Volume Laterality Blood (Blood, 04/14/2018 1:22 PM 04/15/20 18 Venous) CDT 12:42 PM CDT Lidya Hanson M.D. LAB BLOOD ADD-ON Performing Organization Address City/State/ZIP Code Phon e Number [address] [address] [place] [facility] Rubella Antibodies, IgG (04/14/2018 1:22 PM CDT) P athologist Signature Rubella Ab, Negative 04/15/2018 [facility] IgG, S 3:40 PM CDT [facility] [place] Comment: ----REFERENCE VALUE---- Vaccinated: Positive (>=1.0 AI) Unvaccinated: Negative (<=0.7 AI) Rubella IgG Antibody Index 0.6 04/15/2018 3: 40 PM CDT [facility] Specimen Anatomical Collection Method Collection Time Receive d Time (Source) Location / / Volume Laterality Blood (Blood, 04/14/2018 1:22 PM 04/15/20 18 Venous) CDT 12:42 PM CDT Lidya Hanson M.D. LAB MICROBIOLOGY - BLOOD ORD SARMAD Performing Organization Address [facility] Phon e Number [address] [place], [place] [address] [place] [facility] HIV-1/-2 Ag and Ab Screen (04/14/2018 1:22 PM CDT) Analysis Performed At Patho logist Time Signature HIV-1/-2 Ag Non-Reacti Non-Reacti 04/15/2018 [facility] and Ab Screen, ve ve 3:40 PM CDT [facility] [place] [facility] HIV-1 Ab, S Non-Reacti Non-Reacti 04/15/2018 [facility] ve ve 3:40 PM CDT [facility] HIV-1 Ag, S Non-Reacti Non-Reacti 04/15/2018 [facility] ve ve 3:40 PM CDT [facility] HIV-2 Ab, S Non-Reacti Non-Reacti 04/15/2018 [facility] ve ve 3:40 PM CDT [facility] Specimen Anatomical Collection Method Collection Time Receive d Time (Source) Location / / Volume Laterality Blood (Blood, 04/14/2018 1:22 PM 04/15/20 18 Venous) CDT 12:41 PM CDT Lidya Hanson M.D. LAB MICROBIOLOGY - BLOOD ORD SARMAD Performing Organization Address [facility] Phon e Number [facility]- [address] [place], [place] [address] [place] [facility] Hepatitis B Surface Antigen (04/14/2018 1:22 PM CDT) Patholo gist Method Time Signature HBs Antigen, Nonreactive Nonreactive 04/14/2018 [facility] S 9:55 PM CDT [facility] Comment: Biotin has been identified by the best martins as a potential interfering substance. ??Higher concentr ations of biotin may be found in multivitamins, hair/nail supple ments, and workout supplements. ??If the result does not [facility] clinical observations, repeat testing after patient refrains fr om the use of supplements for at least 12 hours. Specimen Anatomical Collection Method Collection Time Receive d Time (Source) Location / / Volume Laterality Blood (Blood, 04/14/2018 1:22 PM 04/14/20 18 9:20 Venous) CDT PM CDT Lidya Hanson M.D. LAB MICROBIOLOGY - BLOOD ORD ERABLES Performing Organization Address City/State/ZIP Code Phon e Number [facility]- [address] [place] [address] [place] [facility] CBC with Differential, Blood (04/14/2018 1:22 PM CDT) P athologist Signature Hemoglobin 12.4 11.6 - 04/14/2018 [facility] 15.0 g/dL 1:33 PM CDT [facility] Hematocrit 37.4 35.5 - 04/14/2018 [facility] 44.9 % 1:33 PM CDT [facility] Erythrocytes 4.13 3.92 - 04/14/2018 [facility] 5.13 1:33 PM CDT [facility] x10(12)/L [facility] MCV 90.6 78.2 - 04/14/2018 [facility] 97.9 fL 1:[facility] RBC Distrib Width 13.0 12.2 - 04/14/2018 [facility] 16.1 % 1:33 PM CDT [facility] Platelet Count 273 157 - 371 04/14/2018 [facility] x10(9)/L 1:33 PM CDT [facility] Leukocytes 7.4 3.4 - 9.6 04/14/2018 [facility] x10(9)/L 1:33 PM CDT [facility] Neutrophils 3.94 1.56 - 04/14/2018 [facility] 6.45 1:33 PM CDT [facility] x[facility](9)/[facility] [place] [facility] Lymphocytes 2.95 0.95 - 04/14/2018 [facility] 3.07 1:33 PM CDT [facility] x[facility](9[facility] [place] [facility] Monocytes 0.35 0.26 - 04/14/2018 [facility] 0.81 1:33 PM CDT [facility] x[facility](9)/[facility] [place] [facility] Eosinophils 0.11 0.03 - 04/14/2018 [facility] 0.48 1:33 PM CDT [facility](9[facility] Basophils 0.02 0.01 - 04/14/2018 [facility] 0.08 1:33 PM CDT [facility](9[facility] Specimen Anatomical Collection Method Collection Time Receive d Time (Source) Location / / Volume Laterality Blood (Blood, 04/14/2018 1:22 PM 04/14/20 18 1:33 Venous) CDT PM CDT Lidya Hanson M.D. LAB BLOOD ADD-ON Performing Organization Address City/State/ZIP Code Phon e Number [facility]- [address] [place] [address] [place] [facility]- [address] [place], [place] [address] ABORh, RBC (04/14/2018 1:22 PM CDT) P athologist Signature ABO Group O 04/15/2018 [facility] 11:28 AM CDT [facility] Rh Type POS 04/15/2018 [facility] 11:28 AM CDT [facility] Specimen Anatomical Collection Method Collection Time Receive d Time (Source) Location / / Volume Laterality Blood (Blood, 04/14/2018 1:22 PM 04/14/20 18 9:19 Venous) CDT PM CDT Lidya Hanson M.D. LAB BLOOD BANK TEST ORDERABL ES Performing Organization Address City/State/ZIP Code Phon e Number [facility] [address] [place] [address] [place] [facility] Antibody Screen, RBC (04/14/2018 1:22 PM CDT) P athologist Signature Antibody Screen NEG 04/15/2018 [facility] 11:28 AM CDT [facility] [place] [facility] Specimen Anatomical Collection Method Collection Time Receive d Time (Source) Location / / Volume Laterality Blood (Blood, 04/14/2018 1:22 PM 04/14/20 18 9:19 Venous) CDT PM CDT Lidya Hanson M.D. LAB BLOOD BANK TEST ORDERABL ES Performing Organization Address City/State/ZIP Code Phon e Number [facility]- [address] [place] [address] [facility] documented in this encounter Visit Diagnoses Diagnosis Examination Other Normal Pregna ncy First Trimester (HCC) documented in this encounter Additional Health Concerns Assessment Noted Time PHQ-9 Depression Total Score: 1 11/16/2012 11:45 AM CS T documented as of this encounter
--- OUTSIDE RECORDS SUMMARY | 2022-07-09 20:42 | XMS_ITS | Encounter Summary ---
:1990 Author Organization [facility] Address [address] [place] [address] Care Team Providers Name Role Phone Unavailable Primary Care Provider Unavailable Encounter Details Date Type Department Care Team Description 01/12/2017 Hospital Encounter HX [facility] Florentin Rosado M.D. [address] [place], [place] [phone] (Wo rk) Social History [...] or relatives? How often do you attend scientologist or Never 2020 presybeterian services? Do you belong to any clubs or No 06/25/2021 organizations such as scientologist groups, unions, fraternal or athletic groups, or [...] Sign Reading Time Taken Comments Blood Pressure 114/60 01/12/2017 8:26 AM CDT Pulse 60 01/12/2017 8:26 AM CDT Temperature - - Respiratory Rate 14 01/12/2017 8:26 AM CDT Oxygen Saturation - - Inhaled Oxygen Concentration - - Weight 102 kg (225 lb 12 oz) 01/12/2017 8:26 AM CDT Height 149 cm (4' 10.66) 01/12/2017 8:26 AM CDT Body Mass Index 46.12 01/12/2017 8:26 AM CDT documented in this encounter H&P Notes Lidya Beltran M.D. - 01/12/2017 8:00 AM CDT [id number] CHIEF COMPLAINT/REASON FOR VISIT Evaluation of left lower quadrant abdominal pain and other generalized symptoms. HISTORY OF PRESENT ILLNESS Norah is a 26-year-old para 3-1-0-4 female who presents today for evaluation of left lower quadrantabdominal pain and other generalized symptoms. As far as the left lower quadrant abdominal pain is concerned, she reports that she has had this pain for about 2 months. She describes the pain as constant and sharp, heavy, worse than when she was in labor with her first baby. She reports that it has been worsening over this last 2 months. She reports that she notices this most when she is bending and when she gets up to stand. However, standing itself makes it feel better. She underwent [facility] scan at [facility] due to low abdominal pain on 11/30/2016, and the CT scan showed no acute findings in the abdomen or pelvis, no urinary tract calculus or hydronephrosis, and a 3.4 cm left ovarian cyst. She has since been seen 3 times in the ER. She was seen on 01/03/2017 for abdominal pain and at that time had a negative urinalysis, negative test, and normal white count. Wet prep at that time was also negative. The note states that the pelvic exam revealed minimal vaginal discharge andcervical motion tenderness on bimanual examination, so she was treated with Rocephin 250 mg IM and doxycycline 100 mg 2 times a day for 2 weeks. She then went to [facility] on 01/04/2017, 1 day later, reporting similar symptoms. Pelvic ultrasound was performed at that time and showed a 4.6 cmsimple appearing cyst in the left ovary. Otherwise, her urinalysis was normal at that time, white count was slightly elevated at 10.7, and other laboratory results were normal other than her CRP which was slightly elevated. She returned to the emergency department again on 01/07/2017 with complaints of chest pain, facial numbness and cough. At that time, CT of the chest PE study was performed and wasnegative for PE. Her white count was not elevated, and she was treated with azithromycin 250 mg and Tessalon Perles for the cough. She was advised to use ibuprofen and [place] for pain. She reports to [facility] that her entire family has been sick and she has many other generalized complaints likely related to that. She reports that she is weak and she has a sore throat, nasal congestion, chest pain, shortness of breath, and cough. She does report that she was tested for influenza and that returned negative. She reports that she has been having frequent bowel movements since these upper respiratory symptoms began, about 2 to 3 times per day, and eventually she feels like she cannot go any more and that she is constipated. She also describes dysuria today and a sensation of urinary frequency. She feels like she cannot empty her bladder completely. Postvoid residual was obtained at the ER in [place] and was elevated at 155 mL. She denies any difficulty actually starting her stream. Finally, she reports that she has been having difficulty sleeping due to her abdominal pain. She feels like she just cannot get comfortable. She has also had vaginal bleeding for the last 3 days since she had intercourse. She has an IUD in place and has not really had bleeding for the last 2 months with that. She reports that after having intercourse, she feels like she has started a period. MEDICATIONS See medication list updated in the EMR today. ALLERGIES See allergy list updated in the EMR today. SYSTEMS REVIEW GENERAL: Positive for fever which has ranged 99.9 to 101 Fahrenheit for the last 2 weeks, chills, fatigue, and she has felt achy for the last week. Also positive for weight gain. No unintentional weight loss. HEENT: Positive for changes in vision, sore throat, nasal congestion. No changes in hearing. CARDIOVASCULAR: Positive for chest pain. No irregular heartbeat or racing heart. RESPIRATORY: Positive for shortness of breath and cough. No wheeze. GASTROINTESTINAL: Positive for nausea and abdominal pain. No vomiting, diarrhea, or constipation. GENITOURINARY: Positive for irregular vaginal bleeding, heavy periods, and painful periods. No pain or burning with urination, no abnormal vaginal discharge,leaking urine, leaking stool or gas. SKIN: No rashes or skin lesions. BREASTS: No masses or lumps, no discharge from the nipples. NEUROLOGIC: No difficulty with memory, numbness, tingling, falls. PSYCHIATRIC: Positive for anxiety, depression, and difficulty sleeping. ENDOCRINE: Positive for heat intolerance, cold intolerance, and hair loss. No excessive thirst. PAST MEDICAL/SURGICAL HISTORY PAST MEDICAL HISTORY: See problem list updated in the EMR today. PAST SURGICAL HISTORY: See procedure list updated in the EMR today. APPLIANCE SERVICE REPRESENTATIVE HISTORY: Para 3-1-0-4 female status post 4 sections, 3 of them were at full term andher most recent one was . She underwent menarche at age 14, and she has not had menses for the last 2 months with the IUD in place. The IUD was appropriately located on the recent ultrasound, but she has had bleeding for the last 3 days after intercourse like a period. She has no history of STDs or cervical dysplasia and uses the Mirena IUD for contraception. SOCIAL HISTORY No tobacco, alcohol, or drug use, and she does not work outside of the home. FAMILY HISTORY See family history list updated in the EMR today. VITAL SIGNS See results review section updated in the EMR today. PHYSICAL EXAMINATION GENERAL: Well-nourished female in no acute distress. HEAD: Normocephalic, atraumatic. EENT: Vision and hearing grossly intact. HEART: Regular rate and rhythm, no murmurs, rubs, or gallops. CHEST: Clear to auscultation bilaterally, no wheezes or rales. ABDOMEN: Soft, nondistended, normoactive bowel sounds. Positive for tenderness to palpation in many different areas of the abdomen including just superior to the umbilicus and across the entire low abdomen including bilateral quadrants and in the suprapubic area. No rebound or guarding. No masses palpable. PELVIC: External genitalia without lesions or abnormalities, normal pubic hair distribution. Urethral meatus normal location and appearance without masses. Vaginal mucosa pink and moist with a small amount of thin, clear discharge present in the posterior vaginal fornix. Cervix appears nulliparous andis without gross lesions or abnormalities. On bimanual examination, the pelvic floor musculature is nontender. The bladder and urethra are very tender to palpation. There is no cervical motion tenderness, but there is a uterine tenderness. The uterus is normal in size. There is bilateral adnexal tenderness but no adnexal masses are noted. LOWER EXTREMITIES: Nontender. No edema. SKIN: No rashes or lesions. NEUROLOGIC: Alert and oriented x3. IMPRESSION/REPORT/PLAN Yfnidd-dlcw-xjac-old para 3-1-0-4 female who presents today with complaints of left lower quadrant abdominal pain, vaginal bleeding with an IUD in place, fevers, body aches, cough, and other upper respiratory symptoms. 1. Lower abdominal pain: The patient has been evaluated recently with a pelvic ultrasound. The only abnormality noted at the time of the ultrasound on 01/04/2017 was a 4.6 cm simple left ovarian cyst. Given the diffuse nature of her pain on the pelvic examination today, I do not think that is the likely cause of her pain as she has significant tenderness of the bladder and urethra as well the uterus and even into the right adnexa. She has had several white counts drawn the last several days, and they have all been normal except for 1 that was slightly elevated, but she also has a significant upper respiratory infection. She was recently treated for pelvic inflammatory disease, but today has no cervical motion tenderness. I think first she needs to recover from her upper respiratory infection and then we will need to do a better job of sorting out the cause of her abdominal pain. Interestingly, she did have an elevated postvoid residual when she was seen at the [facility]. At the time of the next visit, I will evaluate for evidence of a cystocele or other issue that could be causing her not to empty well. She has had several urinalysis' in the last several days, and they have all beennormal without evidence of infection. We could consider repeating the pelvic ultrasound when she returns to evaluate for stability or enlargement or resolution of the left ovarian cyst. 2. Elevated postvoid residual: As noted above, the patient does have an elevated postvoid residual of 155 mL. The etiology of this is unclear. Will evaluate this further when she returns. 3. Upper respiratory infection: I believe this has contributed to her fevers that she reports of 99.9 to 101 over the last 2 weeks. She has also had body aches, sore throat, nasal congestion, chest pain, shortness of breath and cough. I think much of what she is noting is related to this virus. She has had many sick contacts in her household including her children. When she recovers from this, I think will be better able to sort out her other symptoms. She was recently treated with a Z-Sagar, and chest x-ray was performed today to exclude pneumonia. She recently had a chest CT that ruled out pulmonary embolism as well. 4. Preventive services: Patient was due for a Pap smear so this was performed today. 5. Followup: Two weeks. Lidya Beltran M.D./ruiz Electronically Signed By: LIDYA BELTRAN MD On: 01/16/2017 03:13 PM Source: [facility] MHSDOLBEYNONRADSYS Document Id: [id number] documented in this encounter Procedure Notes Alden Hong L.P.N. - 01/12/2017 9:31 AM CDT Urine Dipstick Urine Dipstick Entered On: 01/12/2017 9:31 CDT Performed On: 01/12/2017 9:31 CDT by ALDEN HONG LPN Urine Dipstick UA Color POC : Yellow UA Appear POC : Clear UA Leuk POC : Negative UA Nitrite POC : Negative UA Urobilinogen POC : 0.2 mg/dl UA Protein POC : Negative UA pH POC : 5.5 UA Blood POC : 2+ MODERATE UA Spec Grav POC : 1.030 UA Ketones POC : Negative UA Bili POC : Negative UA Glucose POC : Negative ALDEN HONG LPN - 01/12/2017 9:31 CDT Source: [facility] POWERCHART Document Id: [id number] CDT!14 documented in this encounter Miscellaneous Notes Miscellaneous - Lidya Beltran M.D. - 01/25/2017 11:48 AM CDT Normal Results Letter January 25, 2017 NORAH HDZ [address] [facility] [id number] Dear NORAH HDZ, I am happy to inform you that your recent Pap smear has been read as normal. This is very reassuring. I would recommend following up with your next Pap smear in 3 years or sooner should you have any problems. If you should have any questions, please do not hesitate to contact my office. We look forward to serving you again in the future. Would you like to see your lab results quickly? If you have an e-mail account, join the other [phone],000 [facility] patients who use the Patient Online Services to conveniently access their lab results by calling [phone] to sign up for an account. It just takes a few minutes! Result Name Current Result TRANSIT MIXER OPERATOR Cytology. 01/13/2017 Sincerely, LIDYA BELTRAN [address] [place] [id number] Electronic Signature Electronically Signed By: LIDYA BELTRAN MD On: January 25, 2017 This document has images extracted. Source: [facility] POWERCHART Document Id: [id number] Electronically signed by Conversion, [facility] Project Manager Retail [id number] at 03/09/2017 12:30 PM CDT Miscellaneous - Lidya Beltran M.D. - 01/12/2017 9:00 PM CDT Ambulatory Patient Summary [address] [id number] Visit Information Name: NORAH HDZ [facility] Number: [id number] Current Date: 01/12/2017 21:00:26 Physicians Attending Provider: LIDYA BELTRAN MD Primary [...] multivitamin, ( Multivitamins) Oral, once a day ranitidine (Zantac 150 oral tablet) 1 Tablet(s), Oral, two times a day Stop Taking the Following Medications: Medication list as of 01-12-17 21:00 Attention: If you have any medications at [...] Electronically Signed By: LIDYA BELTRAN MD Signed On:12-JAN-2017 21:00:24 Your Allergies & Intolerances Substance Reaction Symptoms Category Comments Cats Other has allergy to cats Your Problem List Problem Status Onset Comments Family History of Diabetes Mellitus Active Adhesion Pelvic Female Active Depression Anxiety Active Complication Preg Previous (C) Section Antepartum Active Body mass index (BMI) 45.0-49.9, adult Active 01/12/17 Rule activated problem due to BMI 45-49 posted on 01/12 at 08:26 CDT. Stone Kidney Pers Hx Active Deficiency Vitamin D Active Your Upcoming Appointments Date Time Location Provider 01/26/2017 11:00 [facility] APPLIANCE SERVICE REPRESENTATIVE Lidya Beltran MD Attention: Contact your local Clinic if further [...] if you dont have one. Go to [email or web address] and click on Create Your Account. Then, follow the directions to complete the online form. Youll be asked for your [facility] number which you can find at the top of this document. Your Goals/Additional instructions: Source: [facility] POWERCHART Document Id: [id number] Miscellaneous - RaLidya guido M.D. - 01/12/2017 9:00 PM CDT Ambulatory Discharge Medication List [address] [id number] Visit Information Name: NORAH HDZ [facility] Number: [id number] Current Date: 01/12/2017 21:00:25 Attending Provider: LIDYA BELTRAN MD Primary Care Provider: PCP, NIYA GARYGOLDYNORAH has been given the following list of [...] multivitamin, ( Multivitamins) Oral, once a day ranitidine (Zantac 150 oral tablet) 1 Tablet(s), Oral, two times a day Stop Taking the Following Medications: Medication list as of 01-12-17 21:00 Attention: If you have any medications at [...] Electronically Signed By: LIDYA BELTRAN MD Signed On:12-JAN-2017 21:00:24 Additional Information: Source: [facility] POWERCHART Document Id: [id number] Miscellaneous - Adlen Hong, L.P.N. - 01/12/2017 9:20 AM CDT Patent Clerk Documentation Patent Clerk Documentation Entered On: 01/12/2017 9:20 CDT Performed On: 01/12/2017 9:20 CDT by ALDEN HONG LPN Patent Clerk Documentation Exam/Procedure Performed : Pelvic exam CD Patent Clerk Present : Yes CD Patent Clerk Name : Vivien Hong LPN Present in Room During Exam/Procedure : Alone ALDEN HONG LPN - 01/12/2017 9:20 CDT Source: [employer] Document Id: [id number] CDT!6 Miscellaneous - Alden Hong L.P.NWander - 01/12/2017 8:26 AM CDT Adult Life Insurance Actuary Intake/History Adult Life Insurance Actuary Intake/History Entered On: 01/12/2017 8:28 CDT Performed On: 01/12/2017 8:26 CDT by ALDEN HONG LPN Intake Chief Complaint : Consult- left ovarian cyst Peripheral Pulse Rate : 60 /min Respiratory Rate : 14 /min Heart Rhythm : Regular Systolic Blood Pressure : 114 mmHg Diastolic Blood Pressure : 60 mmHg NIBP Mean : 78 mmHg BP Location : Right upper extremity Blood Pressure Cuff Size : Large Height : 149 cm(Converted to: 4 ft 11 inch(es), 59 inch(es)) Actual Weight : 102.4 kg(Converted to: 225 lb 12 oz) Weight Source : Standing scale Dosing Weight Clinic : 102.4 kg Clinic BSA : 2.06 Body Mass Index : 46.12 kg/m2 HOLLI ALDENLAISHA Blue LPN - 01/12/2017 8:26 CDT General Info Languages : Mexican Is Patient Female and 13-50 no hysterectomy : Yes Status : Patient denies Are you ? : No ALDEN HONG LPN - 01/12/2017 8:26 CDT Subjective Pain Symptoms : No ALDEN HONG LPN - 01/12/2017 8:26 CDT Dependent Habits Exposure to Tobacco Smoke : Lives with someone who smokes, Other: none Smoking Status : Never smoker Tobacco 2A : No Tobacco Use/Currently Using : No Tobacco Use/Last 30 Days : No Tobacco Use/Last 12 months : No ALDEN HONG LPN - 01/12/2017 8:26 CDT Caffeine Use Grid Caffeine Use : Current Type : Coffee Frequency : Daily ALDEN HONG LPN - 01/12/2017 8:26 CDT Source: [employer] Document Id: [id number] CDT!36 documented in this encounter Plan of Treatment Not on filedocumented as of this encounter Procedures Procedure Name Priority Date/Time Associated Comments Diagnosis PATHOLOGY TRANSIT MIXER OPERATOR Routine 01/13/2017 12:00 AM Results for this CYTOLOGY CDT procedure are i n the results section. DIPSTICK, POCT, U Routine 01/12/2017 9:31 AM Resu lts for this (NURSING) INTERFACED CDT procedu re are in the results section. BACTERIAL CULTURE, Routine 01/12/2017 9:20 AM Res ults for this AEROBIC, URINE CDT procedure are in the results section. documented in this encounter Results Pathology TRANSIT MIXER OPERATOR Cytology (01/13/2017 12:00 AM CDT) Specimen (Source) Anatomical Location Collection Method / Collectio n Time Received Time / Laterality Volume 01/13/2017 Narrative [facility] - 01/25/2017 10:41 AM CDT [facility] [place] [address] [facility] [address] [place] [address] ??[phone] Patient Name: NORAH HDZ PRECIOUS Patient ID #: [id number] Collected: 01/13/2017 Address: [facility]/Zip: [address] [place], [place] [id number] [address] [place] [address] ??[phone] Received: Reported: 01/14/2017 01/25/2017 Soc. Sec. #: ?/Age/Sex 1 (Age: 26) ??F Physician(s): SETH BELTRAN MD Copy To: ? [facility] ??[id number] [address] [place] [address], ??[place] ??[id number] CYTOPATHOLOGY TRANSIT MIXER OPERATOR REPORT FINAL CYTOLOGIC DIAGNOSIS Pap Smear VCE - ThinPrep: NEGATIVE FOR INTRAEPITHELIAL LESION OR MALIGNANCY ENDOCERVICAL CELLS/COMPONENT PRESENT. SATISFACTORY SPECIMEN FOR EVALUATION. Electronically Signed Out By dls/01/25/[address](ASCP) The Pap test is a screening procedure an d, as such, is subject to both false positive and false negative results as evidenced by published data. ??It is not a diagnostic test and results should be inter preted in the context of the patient's h istory and other clinical findings. ??Obtaining per iodic Pap tests may help to minimize the consequences of any false negatives that may occur. SPECIMEN(S) RECEIVED: Pap Smear VCE - ThinPrep CLINICAL HISTORY: Date of Last Menstrual Period: N/A Hormonal History: Hormone therapy Other Clinical Conditions: HPV TYPING REQUESTED: 16/[address] place Lidya Beltran M.D. LAB PAP COPATH ORDERABLES Performing Organization Address City/State/ZIP Code Phon e Number [facility] Dipstick, POCT, Urine (nursing) (01/12/2017 9:31 AM CDT) [facility] Method Time Signature Color Yellow POWERCHART Appearance Clear POWERCHART Leukocytes, Negative POWERCHART POCT, U Nitrites, Negative POWERCHART POCT, U Urobilinogen, 0.2 mg/dl POWERCHART POCT, Urine Protein, POCT, Negative POWERCHART U pH, POCT, 5.5 5.0 - 9.0 POWERCHART Urine Blood, POCT, U 2+ MODERATE POWERCHART Specific 1.030 1.000 - POWERCHART [place], POCT, 1.030 U Ketone, POCT, Negative POWERCHART U Bilirubin, Negative POWERCHART POCT, U Glucose, POCT, Negative POWERCHART U Specimen (Source) Anatomical Collection Method Collection Time Re ceived Time Location / / Volume Laterality 01/12/2017 9:31 AM CDT Lidya Beltran M.D. LAB POCT ORDERABLES - DEVICE Performing Organization Address City/State/ZIP Code Phon e Number POWERCHART Bacterial Culture, Aerobic, Urine (01/12/2017 9:20 AM CDT) [facility] Method Time Signature Bacterial POWERCHART Culture, Aerobic, Urine HXFinal Mixed say. No POWERCHART further studies unless notified. HXFinal [place] POWERCHART Microbiology laboratory [phone]. Specimen (Source) Anatomical Collection Method Collection Time Re ceived Time Location / / Volume Laterality Urine, First 01/12/2017 9:20 AM Voided CDT Lidya Beltran M.D. LAB MICROBIOLOGY - GENERAL O RDERABLES Performing Organization Address City/State/ZIP Code Phon e Number POWERCHART documented in this encounter Visit Diagnoses Not on filedocumented in this encounter Additional Health Concerns Assessment Noted Time PHQ-9 Depression Total Score: 1 11/16/2012 11:45 AM CS T documented as of this encounter
--- OUTSIDE RECORDS SUMMARY | 2022-07-09 20:42 | XMS_ITS | Encounter Summary ---
:1990 Author Organization [facility] Address [address] [place] [address] Care Team Providers Name Role Phone Unavailable Primary Care Provider Unavailable Encounter Details Date Type Department Care Team Description 03/10/2016 Hospital Encounter HX NO MAPPING Sumeet Hanson M.D. [address] [place], [place] [phone] (Wo rk) Social [...] do you attend mu-ism or Never 2020 jehovah's witness services? Do [...] Miscellaneous - Conversion, Historical Provider Ser - 03/10/2016 11:59 PM CDT Coding Summary-Paper Based CODING DATE: 03/24/2016 FINAL [facility] STATUS: * Discharged to Home or Self Care PAYOR: Medicaid ADMIT DX: REASON FOR VISIT DX: FINAL DX: PRINCIPAL: Z34.90 Encounter for supervision of normal , unspecified, unspecified trimester SECONDARY: PROCEDURES DOCTOR NAME DATE NOTE: The code number assigned matches the documented diagnosis and / or procedure in the patient's chart. However, the narrative phrase printed from the coding software may appear abbreviated, or result in slightly different terminology. Coded By: JUAN COOPER Date Saved: 03/24/2016 12:20 pm [facility] Document Id: [id number] documented in this encounter Plan of Treatment Not on filedocumented as of this encounter Visit Diagnoses Not on filedocumented in this encounter Additional Health Concerns Assessment Noted Time PHQ-9 Depression Total Score: 1 11/16/2012 11:45 AM CS T documented as of this encounter
--- OUTSIDE RECORDS SUMMARY | 2022-07-09 20:42 | XMS_ITS | Encounter Summary ---
:1990 Author Organization [facility] Address [address] [place] [address] Care Team Providers Name Role Phone Unavailable Primary Care Provider Unavailable Reason for Visit Reason Comments Abdominal Pain Back Pain Encounter Details Date Type Department Care Team Description 11/25/2017 Emergency [facility] ED Nausea (Primary Dx); [address] Abdominal Pain; [place] [phone] Pain Pelvic Female [phone] Social History Tobacco Use Types Packs/Day Years [...] or relatives? How often do you attend quaker or Never 2020 latter day services? Do you belong to any clubs or No 06/25/2021 organizations such as quaker groups, unions, fraternal or athletic groups, or [...] documented as of this encounter Progress Notes Gayathri Lemon RWanderT.(R) - 11/25/2017 5:33 AM CST 150 cc's of Omni 300 contrast was administered via IV at 5:13 AM on 11/25/2017 by Gayathri Lemon for the radiology procedure. Please contact Radiology with questions. SCOPIC TECHNICIAN documented in this encounter Plan of Treatment Not on filedocumented as of this encounter Procedures Procedure Name Priority Date/Time Associated Comments Diagnosis US PELVIS RAD - Semiurgent 11/25/2017 8:12 Pain Pelvic Results for TRANSVAGINAL AND (Fast; most ED AM ENDOSCOPIC TECHNICIAN Female this proc edure TRANSABDOMINAL patients; some are in the inpatients) results section. CT ABDOMEN PELVIS RAD - Semiurgent 11/25/2017 5:33 Abdominal Pain R esults for WITH IV CONTRAST (Fast; most ED AM ENDOSCOPIC TECHNICIAN this proc edure patients; some are in the inpatients) results section. documented in this encounter Results US Pelvis Transvaginal and Transabdominal (11/25/2017 8:12 AM ENDOSCOPIC TECHNICIAN) Anatomical Region Laterality Modality Pelvis N/A Ultrasound Specimen (Source) Anatomical Collection Method Collection Time Re ceived Time Location / / Volume Laterality 11/25/2017 8:35 AM ENDOSCOPIC TECHNICIAN Impressions 11/25/2017 8:39 AM ENDOSCOPIC TECHNICIAN IMPRESSION: Normal sonographic appearance of both ovaries without evidence of torsion. No free fluid. Narrative 11/25/2017 8:39 AM ENDOSCOPIC TECHNICIAN EXAM: US PELVIS TRANSVAGINAL AND TRANSABDOMINAL COMPARISON: None FINDINGS: Uterus: ??4.3 x 5.5 x 9.9 cm Myometrium: Normal Endometrial thickness: 8 mm. Other: N/A. Right ovary: 3.0 x 2.3 x 2.8 cm. 1.4 cm dominant follicle or cyst. Left ovary: 2.6 x 2.2 x 3.2 cm. Normal s ize and appearance. Fluid: No free fluid. Procedure Note Tomasa Amador M.D. - 11/25/2017Form atting of this note might be different from the original. EXAM: US PELVIS TRANSVAGINAL AND TRANSAB DOMINAL COMPARISON: None FINDINGS: Uterus: 4.3 x 5.5 x 9.9 cm Myometrium: Normal Endometrial thickness: 8 mm. Other: N/A. Right ovary: 3.0 x 2.3 x 2.8 cm. 1.4 cm dominant follicle or cyst. Left ovary: 2.6 x 2.2 x 3.2 cm. Normal s ize and appearance. Fluid: No free fluid. IMPRESSION: Normal sonographic appearanc e of both ovaries without evidence of torsion. No free fluid. Gerardo Mendiola M.D. IMG US PROCEDURES CT Abdomen Pelvis with IV Contrast (11/25/2017 5:33 AM ENDOSCOPIC TECHNICIAN) Anatomical Region Laterality Modality Abdomen, Pelvis N/A Computed Tomography Specimen (Source) Anatomical Collection Method Collection Time Re ceived Time Location / / Volume Laterality 11/25/2017 7:49 AM ENDOSCOPIC TECHNICIAN Impressions 11/25/2017 7:51 AM ENDOSCOPIC TECHNICIAN IMPRESSION: 1. ??No acute intra-abdominal findings. Narrative 11/25/2017 7:51 AM ENDOSCOPIC TECHNICIAN EXAM: CT ABDOMEN PELVIS WITH IV CONTRAST COMPARISON: None FINDINGS: Cholecystectomy. The liver, sp marifer, kidneys, adrenal glands and pancreas are negative. No evidence of co litis or enteritis. Negative appendix. No bowel obstruction. No free fluid or f ree intraperineal air. No enlarged abdominal lymph nodes. The uterus and ov ramsey are normal. Negative lung bases. No suspicious skeletal lesions. vRad: ??Findings concordant with prelimi lara [place] report. Procedure Note Anayeli Mcclure M.D. - 11/25/2017Forma tting of this note might be different from the original. EXAM: CT ABDOMEN PELVIS WITH IV CONTRAST COMPARISON: None FINDINGS: Cholecystectomy. The liver, sp marifer, kidneys, adrenal glands and pancreas are negative. No evidence of co litis or enteritis. Negative appendix. No bowel obstruction. No free fluid or f ree intraperineal air. No enlarged abdominal lymph nodes. The uterus and ov ramsey are normal. Negative lung bases. No suspicious skeletal lesions. vRad: Findings concordant with prelimina julito vRad report. IMPRESSION: 1. No acute intra-abdominal findings. Gerardo Mendiola M.D. IMG CT PROCEDURES documented in this encounter Visit Diagnoses Diagnosis Nausea - Primary Abdominal Pain Pain Pelvic Female documented in this encounter Additional Health Concerns Assessment Noted Time PHQ-9 Depression Total Score: 1 11/16/2012 11:45 AM CS T documented as of this encounter
--- OUTSIDE RECORDS SUMMARY | 2022-07-09 20:42 | XMS_ITS | Encounter Summary ---
:1990 Author Organization [facility] Address [address] [place] [address] Care Team Providers Name Role Phone Unavailable Primary Care Provider Unavailable Reason for Visit Reason Comments Routine Visit Patient Education Encounter Details Date Type Department Care Team Description 06/21/2018 Routine Department of Chente Hanson M.D. [address] [place] [id number] Examination Obstetrics and [place] Fatuma Araya, Lisandra.S.N., R.N. Other Normal Gynecology in [place], [place] Trimester [address] [place] [address] Social History Tobacco Use Types [...] do you attend spiritism or Never 2020 pentecostalism services? Do you belong to any clubs [...] Reading Time Taken Comments Blood Pressure 110/62 06/21/2018 3:21 PM CDT Pulse - - Temperature - - Respiratory Rate - - Oxygen Saturation - - Inhaled Oxygen Concentration - - Weight 104 kg (228 lb 13.4 oz) 06/21/2018 3:21 PM CDT Height - - Body Mass Index 46.76 04/14/2018 11:36 AM CDT documented in this encounter Progress Notes Fatuma Salazar R.N. - 06/21/2018 3:00 PM CDT S: Patient states she is feeling well. She has not had cramping, has not had nausea, has not had vomiting. She does report that she has been very fatigued. REVIEW OF SYSTEMS: General: No fever, chills, [...] loss, intolerance of heat or cold A/P: 27 y.o. at 15w6d who presents for OB follow up and first trimester OB education. 1.) Barbra has a hx of pre-eclampsia with severe features during her last . She was advisedto start taking a baby Aspirin at 13 weeks gestation to reduce the risk of preeclampsia. She reportstoday that she did not start taking this as directed because she read on the bottle that it could cause problems in people with diabetes. She was strongly encouraged to begin this as soon as possible. 2.)Hospital registration form completed at today's appointment and submitted to [facility] for processing 3.) Barbra has a hx of depression and anxiety during . She is intermittently tearful today reports that in has been worse over the past few weeks while dealing with immigration related to her 's deportation. EPDS score today is 13. She is interested in increasing her medication dose and seeing a therapist related to this. List of recommended therapists was provided to patient. This message will be forwarded to Dr. Hanson to determine if medication changes are needed. 1st trimester education and signs and symptoms of labor education provided today using the ACOG list of recommended antepartum education topics and in accordance with [facility] guidelines. Patient states understanding to all topics presented. All questions answered during appointment. Written information regarding topics presented provided for patient to take home. Please see education tab for further details about topics addressed. documented in this encounter Plan of Treatment Not on filedocumented as of this encounter Visit Diagnoses Diagnosis Examination Other Normal Pregna ncy First Trimester (HCC) documented in this encounter Additional Health Concerns Assessment Noted Time PHQ-9 Depression Total Score: 1 11/16/2012 11:45 AM CS T documented as of this encounter
--- OUTSIDE RECORDS SUMMARY | 2022-07-09 20:42 | XMS_ITS | Encounter Summary ---
:1990 Author Organization [facility] Address [address] [place] [address] Care Team Providers Name Role Phone Unavailable Primary Care Provider Unavailable Encounter Details Date Type Department Care Team Description 01/12/2017 Hospital Encounter HX NO MAPPING Sumeet Hanson M.D. [address] [place], [place] [phone] (Wo rk) Social History [...] do you attend buddhist or Never 2020 presybeterian services? Do you [...] place to sleep or slept in a prison (including now)? Sex Assigned at Date Recorded Female 04/12/2018 10:21 PM CDT documented as of this encounter Plan of Treatment Not on filedocumented as of this encounter Visit Diagnoses Not on filedocumented in this encounter Additional Health Concerns Assessment Noted Time PHQ-9 Depression Total Score: 1 11/16/2012 11:45 AM CS T documented as of this encounter
--- OUTSIDE RECORDS SUMMARY | 2022-07-09 20:42 | XMS_ITS | Encounter Summary ---
:1990 Author Organization [facility] Address [address] [place] [address] Care Team Providers Name Role Phone Unavailable Primary Care Provider Unavailable Encounter Details Date Type Department Care Team Description 11/30/2014 Hospital Encounter HX NO MAPPING Mariaa Weiss P.A. Social History Tobacco Use Types Packs/Day Years [...] or relatives? How often do you attend sikh or Never 2020 jewish services? 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
--- OUTSIDE RECORDS SUMMARY | 2022-07-09 20:42 | XMS_ITS | Encounter Summary ---
:1990 Author Organization [facility] Address [address] [place] [address] Care Team Providers Name Role Phone Unavailable Primary Care Provider Unavailable Encounter Details Date Type Department Care Team Description 03/24/2016 Hospital Encounter HX [facility] Florentin Rosado M.D. [address] [place], [place] [phone] (Wo rk) Social History [...] or relatives? How often do you attend sabianist or Never 2020 protestant services? Do you belong to any clubs or No 06/25/2021 organizations such as sabianist groups, unions, fraternal or athletic groups, or [...] place to sleep or slept in a long-term (including now)? Sex Assigned at Date Recorded Female 04/12/2018 10:21 PM CDT documented as of this encounter Last Filed Vital Signs Vital Sign Reading Time Taken Comments Blood Pressure 118/82 03/24/2016 10:15 AM CDT Pulse - - Temperature - - Respiratory Rate - - Oxygen Saturation - - Inhaled Oxygen Concentration - - Weight 97.2 kg (214 lb 4.6 oz) 03/24/2016 10:15 AM CDT Height 149 cm (4' 10.66) 03/24/2016 10:15 AM CDT Body Mass Index 43.78 03/24/2016 10:15 AM CDT documented in this encounter Progress Notes Lidya Beltran M.D. - 03/24/2016 10:12 AM CDT OBGYN-SV CHIEF COMPLAINT/REASON FOR VISIT OB followup. HISTORY OF PRESENT ILLNESS Norah is a 25-year-old 4, para 3-0-0-3 female at 28+6 weeks by last menstrual period, consistent with 7+5 week ultrasound, who presents for OB followup today. She was seen by Dr. Bobby up until recently, when she was referred here for consult due to history of prior section x3. This p regnancy has been very difficult for her. However, her symptoms have improved somewhat since I saw her last. I started her on Zantac for her heartburn, and that has improved significantly. However, shedoes continue to have contractions. She has had up to 5 to 6 per hour, most recently 4 nights ago. She also reports that she has vaginal discharge that is greenish in color and has not improved with 3 days of Terazol. She has had no itching associated with it. The baby is moving well. She denies any vaginal bleeding or leakage of fluid. She has also had significant musculoskeletal aches and pains in this and low abdominal pain that has been bothersome to her. MEDICATIONS See medication list updated in the EMR today. ALLERGIES See allergy list updated in the EMR today. SYSTEMS REVIEW GENERAL: No fevers, chills, fatigue, unintentional weight loss or weight gain. HEENT: No changes in vision or hearing, no sore throat or nasal congestion. CARDIOVASCULAR: No chest pain, irregular heartbeat or racing heart. RESPIRATORY: No shortness of breath, cough or wheeze. GASTROINTESTINAL: No nausea, vomiting, diarrhea, constipation or abdominal pain. GENITOURINARY: Positive for abnormal vaginal discharge - see HPI. No pain or burning with urination, no irregular vaginal bleeding, heavy periods,painful periods, leaking urine, leaking stool or gas. SKIN: No rashes or skin lesions. BREASTS: No masses or lumps, no discharge from the nipples. NEUROLOGIC: No difficulty with memory, numbness, tingling, falls. PSYCHIATRIC: Positive for difficulty sleeping due to . No anxiety, depression. ENDOCRINE: Positive for heat intolerance, excessive thirst, and hair loss related to . No cold intolerance. COMPLICATIONS OF See high-risk factors section on the OB flow sheet. VITAL SIGNS See results review section in the EMR. PHYSICAL EXAMINATION See OB flow sheet scanned into the EMR. Pelvic exam: External genitalia without lesions or abnormalities. Normal pubic hair distribution, urethral meatus, normal location and appearance, without masses, vaginal mucosa pink and moist with a moderate amount of thick greenish- white discharge present in the posterior vaginal fornix. Cervix appears nulliparous and is without gross lesions or abnormalities. Vaginal pH is acidic. IMPRESSION/REPORT/PLAN A 25-year-old 4, para 3-0-0-3 female at 28+6 weeks by last menstrual period, consistent with7+5 week ultrasound, who presents for obstetrical followup today. 1. care: See education sheet scanned into the electronic medical record for issuesaddressed today. 2. History of prior section x3: Placenta was posterior on ultrasound with no evidence of previa noted. We will plan scheduled repeat section at 39 weeks with this . 3. Size greater than dates. Fundal height was more than 2 cm, discrepant from gestational age at thetime of the last visit but was consistent with gestational age today. This is likely due to the position. I will continue to monitor this closely, and if there continues to be a discrepancy, willplan a growth ultrasound. 4. Depression and anxiety: I will see how the patient is doing from a mood standpoint when she returns. 5. Vaginal discharge: This seems to be consistent with yeast. She was given a prescription for Diflucan to treat this since the Terazol 7 does not seem to be working. 6. Low abdominal pain: The patient's cervix was visually closed on speculum examination today. I believe that this is likely musculoskeletal and not related to labor. We will continue to monitor this closely. She was given a referral to Physical Therapy at the time of the last visit, and I will see how she is doing with this when she returns. 7. Heartburn: Improved with Zantac. 8. Followup: Two weeks. Lidya Beltran M.D./ruiz Electronically Signed By: LIDYA BELTRAN MD On: 04/14/2016 01:44 PM Source: [facility] MHSDOLBEYNONRADSYS Document Id: [id number] documented in this encounter Procedure Notes Alden Hong LWanderP.N. - 03/24/2016 10:20 AM CDT Urine Dipstick Urine Dipstick Entered On: 03/24/2016 10:20 CDT Performed On: 03/24/2016 10:20 CDT by ALDEN HONG LPN Urine Dipstick UA Color POC : Yellow UA Appear POC : Clear UA Protein POC : Negative UA Glucose POC : Negative ALDEN HONG LPN - 03/24/2016 10:20 CDT Source: [facility] POWERCHART Document Id: [id number] CDT!6 documented in this encounter Miscellaneous Notes Telephone Encounter - Conversion, Historical Provider Ser - 01/11/2017 11:22 AM CDT *Phone Message/Dr. Beltran Document Contains Addenda Addendum by ALDEN HONG LPN on January 11, 2017 13:33:06 CDT Patient notified, appointment has been scheduled. Records have been requested from [place]. Addendum by LIDYA BELTRAN MD on January 11, 2017 13:01:02 CDT From: LIDYA BELTRAN MD To: Obstetrics/Gynecology Nurse; Sent: 01/11/2017 13:01:02 CDT Subject: RE: *Phone Message/Dr. Beltran Sure, 8:45 would be great, unless that spot is held for another reason. Also, she reported to the [facility] provider that she was seen at the [place] [facility] ER on 01/04 or 01/05 and that she had a pelvic US at that time that showed that her left ovarian cyst was larger. Please get copies of those records before her visit. Addendum by ALDEN HONG LPN on January 11, 2017 11:24:10 CDT From: ALDEN HONG LPN ( Obstetrics/Gynecology Nurse) To: LIDYA BELTRAN MD; Sent: 01/11/2017 11:24:10 CDT Subject: FW: *Phone Message/Dr. Beltran Would you like to see her tommorw some time? From: MINI FLORES ( Carey Ep Technologist) To: Obstetrics/Gynecology Nurse; Sent: 01/11/2017 11:22:15 CDT Subject: *Phone Message/Dr. Beltran Caller is: ( x ) Patient ( ) Mother ( ) Father ( ) Spouse ( ) Daughter ( ) Son ( ) Pharmacy ( ) Other: Physician: Dr. Beltran Patient MRN #: Reason for Call: Message: Patient state that her cyst on her ovary is hurting a lot. She would like to see Dr. Beltran. I tried to schedule her with Dr. Aponte on Wednesday afternoon, but she states that she can't come that afternoon because she has a job interview. She would like to be seen sooner than that. Pleasecall her back at [phone] to advise. Advice/Action: Source used: ( ) Verbalizes understanding [...] back cell phone number ( ) Source: [facility] POWERCHART Document Id: [id number] URE ENGRAVER Miscellaneous - Lidya Beltran M.D. - 04/06/2016 6:58 PM CDT Ambulatory Patient Summary [address] [id number] Visit Information Name: NORAH HDZ [facility] Number: [id number] Current Date: 04/06/2016 18:58:20 Physicians Attending Provider: LIDYA BELTRAN MD Primary [...] you have problems taking your medications. Medication/Strength Dose Route Frequency Indications/Special Instructions/Comments/Notes ranitidine (Zantac 150 oral tablet) 150 mg Oral two times a day multivitamin, ( Multivitamins) Oral once a day Attention: If you have any medications at home that are not on this list, DO NOT take them until youcontact your provider for clarification. Give a copy of your medication list to your primary care provider. Update your medication list any time medications or doses are changed and carry your medication list at all times in case of emergency. Electronically Signed By: LDIYA BELTRAN MD Signed On:06-APR-2016 18:58:17 Your Allergies & Intolerances Substance Reaction Symptoms [...] Your Upcoming Appointments Date Time Location Provider 04/07/2016 08:45 [facility] GERIATRIC PHYSICAL THERAPIST Lidya Beltran MD 04/21/2016 08:15 [facility] GERIATRIC PHYSICAL THERAPIST Lidya Beltran MD 05/05/2016 08:15 [facility] GERIATRIC PHYSICAL THERAPIST Lidya Beltran MD 05/19/2016 08:15 [facility] GERIATRIC PHYSICAL THERAPIST Lidya Beltran MD Attention: Contact your local [...] if you dont have one. Go to [email or web address] and click on Create Your Account. Then, follow the directions to complete the online form. Youll be asked for your [facility] number which you can find at the top of this document. Your Goals/Additional instructions: Source: [facility] POWERCHART Document Id: [id number] Miscellaneous - Lidya Beltran M.D. - 04/06/2016 6:58 PM CDT Ambulatory Discharge Medication List [address] [id number] Visit Information Name: NORAH HDZ [facility] Number: [id number] Visit Date: 04/06/2016 18:58:19 Attending Provider: LIDYA BELTRAN MD Primary Care Provider: PCP, NORAH PERERA has been given the following list of medications: Your Medications It is important to take your medications as directed. Use a pill box or chart to help remind you to take your medications. Please let your doctor or nurse know if you have problems taking your medications. Medication/Strength Dose Route Frequency Indications/Special Instructions/Comments/Notes ranitidine (Zantac 150 oral tablet) 150 mg Oral two times a day multivitamin, ( Multivitamins) Oral once a day Attention: If you have any medications at [...] Electronically Signed By: LIDYA BELTRAN MD Signed On:06-APR-2016 18:58:17 Additional Information: Source: [facility] POWERCHART Document Id: [id number] Telephone Encounter - Conversion, Historical Provider Ser - 04/03/2016 3:11 PM CDT *Phone Message/Dr. Beltran Document Contains Addenda Addendum by KYLEE CRESPO LPN on April 03, 2016 15:17:43 CDT Left message for patient. Advised for her to go to [facility] to have this evaluated. Told to call back with any other questions, otherwise she will present to [facility]. From: MINI FLORES ( Carey Ep Technologist) To: Obstetrics/Gynecology Nurse; Sent: 04/03/2016 15:11:22 CDT Subject: *Phone Message/Dr. Beltran Caller is: ( x ) Patient ( ) Mother ( ) Father ( ) Spouse ( ) Daughter ( ) Son ( ) Pharmacy ( ) Other: Physician: Dr. Beltran Patient MRN #: Reason for Call: Message: Patient states that she has been having contractions and her bottom hurts like her cervix is opening. Please call her back at [phone] to advise. Advice/Action: Source used: ( ) Verbalizes understanding [...] back cell phone number ( ) Source: [facility] POWERCHART Document Id: [id number] Miscellaneous - Alden Hong L.P.NWander - 03/24/2016 10:16 AM CDT Neurosurgical Nurse Documentation Neurosurgical Nurse Documentation Entered On: 03/24/2016 10:16 CDT Performed On: 03/24/2016 10:16 CDT by ALDEN HONG LPN Neurosurgical Nurse Documentation Exam/Procedure Performed : Pelvic exam CD Neurosurgical Nurse Present : Yes CD Neurosurgical Nurse Name : Vivien Hong LPN Present in Room During Exam/Procedure : Alone ALDEN HONG LPN - 03/24/2016 10:16 CDT Source: [facility] [employer] GroupCHART Document Id: [id number] CDT!6 Miscellaneous - Alden Hong L.P.N. - 03/24/2016 10:15 AM CDT Adult Pole Classifier Intake/History Adult Pole Classifier Intake/History Entered On: 03/24/2016 10:16 CDT Performed On: 03/24/2016 10:15 CDT by ALDEN HONG LPN Intake Chief Complaint : OBFU 28 + 6 weeks LMP Date : 09/04/2015 Systolic Blood Pressure : 118 mmHg Diastolic Blood Pressure : 82 mmHg NIBP Mean : 94 mmHg BP Location : Left upper extremity Blood Pressure Cuff Size : Regular Height : 149 cm(Converted to: 4 ft 11 inch(es), 59 inch(es)) Actual Weight : 97.2 kg(Converted to: 214 lb 5 oz) Weight Source : Standing scale Dosing Weight Clinic : 97.2 kg Clinic BSA : 2.01 Body Mass Index : 43.78 kg/m2 ALDEN HONG LPN - 03/24/2016 10:15 CDT General Info Languages : Singaporean Is Patient Female and 13-50 no hysterectomy : Yes Status : Confirmed positive Are you ? : No ALDEN HONG BRENNA - 03/24/2016 10:15 CDT Subjective Pain Symptoms : No ALDEN HONG BRAKE PRESS OPERATOR - 03/24/2016 10:15 CDT Dependent Habits Exposure to Tobacco Smoke : Lives with someone who smokes, Other: none Smoking Status : Never smoker Tobacco 2A : No Tobacco Use/Currently Using : No Tobacco Use/Last 30 Days : No Tobacco Use/Last 12 months : No HOLLIALDEN Glover BRAKE PRESS OPERATOR - 03/24/2016 10:15 CDT Caffeine Use Grid Caffeine Use : Current Type : Coffee Frequency : Daily ALDEN HONG BRAKE PRESS OPERATOR - 03/24/2016 10:15 CDT Source: [facility] POWERCHART Document Id: [id number] CDT!34 documented in this encounter Plan of Treatment Not on filedocumented as of this encounter Procedures Procedure Name Priority Date/Time Associated Comments Diagnosis VAGINITIS BATTERY, Routine 03/24/2016 12:40 PM Re sults for this DNA (GENITAL) CDT procedure are in the results section. DIPSTICK, POCT, U Routine 03/24/2016 10:20 AM Res ults for this (NURSING) INTERFACED CDT procedu re are in the results section. documented in this encounter Results (ABNORMAL) VAGINITIS BATTERY, DNA (GENITAL) (03/24/2016 12:40 PM CDT) Component Value Ref Test Analysis Performed At Patholo gist Range Method Time Signature HXVaginitis (POSITIVE) POWERCHART Battery, DNA (Genital) HXFinal Trichomonas POWERCHART vaginalis DNA negative HXFinal Gardnerella POWERCHART vaginalis DNA negative HXFinal Jailene species POWERCHART DNA positive HXFinal Reference: POWERCHART Negative Specimen (Source) Anatomical Collection Method Collection Time Re ceived Time Location / / Volume Laterality Vagina 03/24/2016 12:40 PM CDT Lidya Beltran M.D. LAB HISTORICAL ORDERS Performing Organization Address City/State/ZIP Code Phon e Number POWERCHART Dipstick, POCT, Urine (nursing) (03/24/2016 10:20 AM CDT) Analysis Performed At Patho logist Time Signature Color Yellow POWERCHART Appearance Clear POWERCHART Protein, POCT, Negative POWERCHART U Glucose, POCT, Negative POWERCHART U Specimen (Source) Anatomical Collection Method Collection Time Re ceived Time Location / / Volume Laterality 03/24/2016 10:20 AM CDT Lidya Beltran M.D. LAB POCT ORDERABLES - DEVICE Performing Organization Address City/State/ZIP Code Phon e Number POWERCHART documented in this encounter Visit Diagnoses Not on filedocumented in this encounter Additional Health Concerns Assessment Noted Time PHQ-9 Depression Total Score: 1 11/16/2012 11:45 AM CS T documented as of this encounter
--- OUTSIDE RECORDS SUMMARY | 2022-07-09 20:42 | XMS_ITS | Encounter Summary ---
:1990 Author Organization [facility] Address [address] [place] [address] Care Team Providers Name Role Phone Unavailable Primary Care Provider Unavailable Encounter Details Date Type Department Care Team Description 04/15/2016 Hospital Encounter HX NO MAPPING Mau Longo M.D. [address] [place], [place] [address] (Wo rk) Social History Tobacco Use Types [...] do you attend restoration or Never 2020 religion services? Do you [...]
--- OUTSIDE RECORDS SUMMARY | 2022-07-09 20:42 | XMS_ITS | Encounter Summary ---
:1990 Author Organization [facility] Address [address] [place] [address] Care Team Providers Name Role Phone Unavailable Primary Care Provider Unavailable Encounter Details Date Type Department Care Team Description 04/14/2018 Ancillary Procedure Department of Obstetrics Mannie encarnacion, and Gynecology in [place], [place] [address] [facility] [place] [phone] Social History Tobacco Use Types Packs/Day Years [...] do you attend baptist or Never 2020 latter day services? Do [...]
--- OUTSIDE RECORDS SUMMARY | 2022-07-09 20:42 | XMS_ITS | Encounter Summary ---
:1990 Author Organization [facility] Address [address] [place] [address] Care Team Providers Name Role Phone Unavailable Primary Care Provider Unavailable Encounter Details Date Type Department Care Team Description 03/22/2018 Clinical Communication Department of Internal [facility] [address] [place] [address] [facility] [phone] Social History Tobacco Use Types Packs/Day Years [...] or relatives? How often do you attend sabianism or Never 2020 sikhism services? Do you belong to any clubs or No 06/25/2021 organizations such as sabianism groups, unions, fraternal or athletic groups, or [...] this encounter Miscellaneous Notes Telephone Encounter - Candace Foley - 03/28/2018 12:34 PM CDT Patient states she is returning a call. Please call [phone] Telephone Encounter - Hanna Riggins R.N. - 03/23/2018 1:49 PM CDT Barbra return call and said that she is going to follow up at [facility] in [facility] for beta Hcg tomorrow and will call back to initiate care if it is positive. Telephone Encounter - Vivien Burns R.N. - 03/23/2018 9:20 AM CDT Left message for patient to return our call. She was seen at [facility] yesterday, UPT was negative and beta quant was 24. She is planning to return there on for a repeat draw. Telephone Encounter - Vivien Burns R.N. - 03/22/2018 10:26 AM CDT Left message for patient to return our call. Telephone Encounter - Candace Foley - 03/22/2018 8:28 AM CDT Patient states she has had a positive home test. Please call [phone] documented in this encounter Plan of Treatment Not on filedocumented as of this encounter Visit Diagnoses Not on filedocumented in this encounter Additional Health Concerns Assessment Noted Time PHQ-9 Depression Total Score: 1 11/16/2012 11:45 AM CS T documented as of this encounter
--- OUTSIDE RECORDS SUMMARY | 2022-07-09 20:42 | XMS_ITS | Encounter Summary ---
:1990 Author Organization [facility] Address [address] [place] [address] Care Team Providers Name Role Phone Unavailable Primary Care Provider Unavailable Encounter Details Date Type Department Care Team Description 01/12/2017 Hospital Encounter HX [facility] Joseline Hernández M.D. [address] [place], [place] [phone] (Wo rk) Social History [...] do you attend methodist or Never 2020 hindu services? Do you [...] - - Height 149 cm (4' 10.66) 01/12/2017 9:47 AM CDT Body Mass Index - - documented in this encounter Miscellaneous Notes Yessicacellkhadijah - Lidya Beltran M.D. - 01/14/2017 12:46 PM CDT Normal Results Letter January 14, 2017 NORAH HDZ [address] [place] [id number] Dear NORAH HDZ, I am pleased to report that your results from the urine culture are normal. Please follow up with usas we discussed during your visit or sooner if you have any concerns. If you have questions or concerns, please do not hesitate to call our office. Would you like to see your lab results quickly? If you have an e-mail account, join the other [phone],000 [facility] patients who use the Patient Online Services to conveniently access their lab results by calling [phone] to sign up for an account. It just takes a few minutes! Sincerely, LIDYA BELTRAN [address] [place] [address] [place] [address] Electronic Signature Electronically Signed By: LIDYA BELTRAN MD On: January 14, 2017 This document has images extracted. Source: [facility] POWERCHART Document Id: [id number] Electronically signed by Maycol [facility] [employer] Baseball Coach [id number] at 03/09/2017 12:30 PM CDT Miscellaneous - Lidya Beltran M.D. - 01/12/2017 12:04 PM CDT Results Notification Document Contains Addenda Addendum by ALDEN DE LA GARZA LPN on January 12, 2017 14:59:56 CDT Patient notified. From: LIDYA BELTRAN MD To: ALDEN DE LA GARZA LPN; Sent: 01/12/2017 12:04:17 CDT ! Show up: 01/12/2017 12:04:17 CDT Subject: Results Notification Actions: Note to Nurse Reminder Comments: Please let Norah know that her chest x-ray shows no evidence of pneumonia. Therefore, the symptoms she is having are most likely viral and should run their course. Results: Date Result Type Result Name 01/12/2017 11:40 Radiology XR Chest 2 Views Source: [facility] POWERCHART Document Id: [id number] Electronically signed by Conversion, [facility] [employer] Baseball Coach [id number] at 03/09/2017 12:30 PM CDT documented in this encounter Plan of Treatment Not on filedocumented as of this encounter Procedures Procedure Name Priority Date/Time Associated Diagnosis Comme nts DX CHEST AP OR PA Routine 01/12/2017 9:40 AM Resu lts for this AND LATERAL 2 VIEWS CDT procedur e are in the results section. documented in this encounter Results DX Chest AP or PA and Lateral 2 Views (01/12/2017 9:40 AM CDT) Anatomical Region Laterality Modality Chest N/A Radiographic Imaging Specimen (Source) Anatomical Collection Method Collection Time Re ceived Time Location / / Volume Laterality 01/12/2017 9:40 AM CDT Impressions 01/12/2017 11:36 AM CDT No acute findings. Narrative 01/12/2017 11:36 AM CDT EXAM: ??XR Chest 2 Views. DEMOGRAPHICS: ??26 years Female. INDICATION: ??Evaluate for pneumonia. COMPARISON: ??July 01, 2011 FINDINGS: ??Normal cardiac silhouette. N o focal areas of consolidation. No pneumothorax. Several scattered chronic appearing Schm orl's node deformities are present within the mid thoracic spine. Postop changes prior cholecystectomy. Chest otherwise negative for acute findi ngs. Procedure Note Harvey Hunt M.D. / Provider, Kalyan zelaya M.D. - 03/15/2017 EXAM: XR Chest 2 Views. DEMOGRAPHICS: 26 years Female. INDICATION: Evaluate for pneumonia. COMPARISON: July 01, 2011 FINDINGS: Normal cardiac silhouette. No focal areas of consolidation. No pneumothorax. Several scattered chronic appearing Schm orl's node deformities are present within the mid thoracic spine. Postop changes prior cholecystectomy. Chest otherwise negative for acute findi ngs. IMPRESSION: No acute findings. Joanne Velarde(R), RYasir(R)(M) IMG DIAGNOSTIC IMAGING PROCEDURES documented in this encounter Visit Diagnoses Not on filedocumented in this encounter Additional Health Concerns Assessment Noted Time PHQ-9 Depression Total Score: 1 11/16/2012 11:45 AM CS T documented as of this encounter
--- OUTSIDE RECORDS SUMMARY | 2022-07-09 20:42 | XMS_ITS | Encounter Summary ---
:1990 Author Organization [facility] Address [address] [place] [address] Care Team Providers Name Role Phone Unavailable Primary Care Provider Unavailable Encounter Details Date Type Department Care Team Description 05/27/2018 Hospital Encounter Department of Dana Hanson Other Normal First Trimester; Laboratory Medicine Ramonita Bose With Personal History Preeclam psia Previous in [place], [address] [place] [phone] Social History Tobacco Use Types Packs/Day Years [...] or relatives? How often do you attend rastafarian or Never 2020 rastafarian services? Do you belong to any clubs or No 06/25/2021 organizations such as rastafarian groups, unions, fraternal or athletic groups, or [...] 05/27/2019 tablet mg total) by mouth daily. ergocalciferol (DRISDOL) Take 1 capsule 8 capsule 0 018 06/07/2018 50,000 Unit capsule (50,000 Units total) by mouth once a week for 8 doses. Take 1 tablet by 90 tablet 3 03/24/2018 03/24/20 19 jzfvtik-gtcejsgp-xifo mouth daily. fumarate-FA (VINATE M) 27-1 mg per tablet raNITIdine (ZANTAC) 150 mg Take 1 tablet (150 60 tablet 3 0 05/02/2018 05/02/2019 tablet mg total) by mouth 2 (two) times a day. sertraline (ZOLOFT) 50 mg Take 1 tablet (50 30 tablet 11 05/05/2021 tablet mg total) by mouth daily. documented as of this encounter Plan of Treatment Not on filedocumented as of this encounter Procedures Procedure Name Priority Date/Time Associated Diagnosis Comme nts URINALYSIS, Routine 05/27/2018 11:45 Examination Res ults for this DIPSTICK AM CDT Other Normal procedure are i n First the results Trimester section. With Personal History Preeclampsia Previous documented in this encounter Results (ABNORMAL) Urinalysis, Dipstick (05/27/2018 11:45 AM CDT) P athologist Signature Source Midstream 05/27/2018 [facility] 11:[address] [facility] Clarity Clear Clear 05/27/2018 [facility] 11:[address] [facility] Color Yellow 05/27/2018 [facility] 11:[address] [facility] Comment: ----REFERENCE VALUE---- Colorless Yellow Jaimee Blood Negative Negative 05/27/2018 11:[address] [facility] [place] [facility] Nitrite Negative Negative 05/27/2018 11:[address] [facility] [place] [facility] Leukocyte Esterase Negative Negative 05/27/2018 11:52 AM CDT [facility] [place] [facility] Protein Trace mg/dL 05/27/2018 11:[address] [facility] [place] [facility] Comment: ----REFERENCE VALUE---- Negative Trace Glucose Negative Negative mg/dL 05/27/2018 11:52 AM [facility] Ketones, QI(U) 15 (A) Negative mg/dL 05/27/2018 11:52 AM [facility] Bilirubin Small (A) Negative 05/27/2018 11:52 AM [facility] pH 5.5 5.0 - 8.0 05/27/2018 11:52 AM [facility] Specific [place] >=1.030 1.001 - 1.035 05/27/2018 11:52 AM [facility] Urobilinogen 0.2 0.2 - 1.0 mg/dL 05/27/2018 11:52 AM [facility] Specimen Anatomical Collection Method Collection Time Receive d Time (Source) Location / / Volume Laterality Urine (Urine, 05/27/2018 11:45 05/27/2018 [place]) AM CDT 11:48 AM CDT Lidya Hanson M.D. LAB URINE ORDERABLES Performing Organization Address City/State/ZIP Code Phon e Number [facility] [address] [place], [place] [address] [address] [place] [address] [place] [address] [place] [address] [facility] documented in this encounter Visit Diagnoses Diagnosis Examination Other Normal Pregna ncy First Trimester (HCC) With Personal History Preeclam psia Previous (HCC) documented in this encounter Additional Health Concerns Assessment Noted Time PHQ-9 Depression Total Score: 1 11/16/2012 11:45 AM CS T documented as of this encounter
[2022-07-09 20:43] LABS: Bacteria Urine Few; Calcium Oxalate Crystals Urine Few; RBC Urine 0-2 (0-2); WBC Urine 0-2 (0-5)
--- OUTSIDE RECORDS SUMMARY | 2022-07-09 20:43 | XMS_ITS | Encounter Summary ---
:1990 Author Organization [facility] Address [address] [place] [address] Care Team Providers Name Role Phone Unavailable Primary Care Provider Unavailable Encounter Details Date Type Department Care Team Description 07/12/2014 Hospital Encounter HX [facility] Todd Dinero [...] or relatives? How often do you attend yarsanism or Never 2020 sikhism services? Do you belong to any clubs or No 06/25/2021 organizations such as yarsanism groups, unions, fraternal or athletic groups, or [...] Sign Reading Time Taken Comments Blood Pressure 110/68 07/12/2014 4:29 PM CDT Pulse 84 07/12/2014 4:29 PM CDT Temperature - - Respiratory Rate 16 07/12/2014 4:29 PM CDT Oxygen Saturation - - Inhaled Oxygen Concentration - - Weight 88.5 kg (195 lb 1.7 oz) 07/12/2014 4:29 PM CDT Height 149 cm (4' 10.66) 07/12/2014 4:29 PM CDT Body Mass Index 39.86 07/12/2014 4:29 PM CDT documented in this encounter Progress Notes Todd Aponte M.D. - 07/12/2014 4:23 PM CDT [id number] CHIEF COMPLAINT/REASON FOR VISIT Abdominal pain, blood with stools and headache. HISTORY OF PRESENT ILLNESS This patient is a 23-year-old, G3, P3-0-0-3 female who had a repeat section on 06/20/2014, delivering a viable female . The patient was seen on 07/05/2014 and diagnosed with postop incision cellulitis at her section incision. She was started on Keflex antibiotics. She reports she is still taking the antibiotics. The patient complains abdominal pain at the left edge of the incision that is strong and feels like a burn. She reports that she is taking the antibiotics 2 times a day. She reports that she is taking hot baths twice a day and using hot, wet washcloth 4 times a day to clean her incision. She reports for the last 2 days, the left edge of her incision has been burningand is very uncomfortable. She denies any drainage or discharge. She reports that the foul odor and smell from incision is continuing but it is starting to improved. She denies leaking of fluid from the incision. The patient is nursing without difficulty. She reports light lochia that has not completely stopped.She denies difficulty urinating. No dysuria, hematuria or flank pain. The patient denies any constipation symptoms or diarrhea. She denies any pain with defecation. She has noted some blood streaks on her stools this last week. She denies fevers. ALLERGIES No known drug allergies. MEDICATIONS 1. Generic vitamins. 2. Hpcm-ips-mzgazoh stool softener. 3. Keflex 500 mg by mouth 2 times a day x10 days started on 07/05/2014. 4. Depo-Provera, given on 06/22/2014. 5. Nsfw-ksp-mqsidah preparation H recommended. 6. Vntm-zzf-dopslva burn ointment and hydrocortisone cream recommended. PAST MEDICAL/SURGICAL HISTORY PAST MEDICAL HISTORY: 1. Obesity. 2. GERD. 3. Constipation. 4. Seasonal allergic rhinitis. 5. Depression. 6. Pelvic adhesions. 7. History of overdose and suicide attempt. PAST SURGICAL HISTORY: 1. section 2009. 2. section 2012. 3. section 06/20/2014. PAST OBSTETRICAL HISTORY: 1. section 11/26/2009 at 37 weeks, male infant, 6 pounds 10 ounces. 2. section 06/01/2013 at39 weeks, male , 2905 g. 3. section 06/20/2014 at 39 weeks, female , 2550 g with dense pelvic adhesions. SOCIAL HISTORY The patient is single. She denies tobacco, alcohol or drug use. She was treated for chlamydia in 2012. No history of abuse. No history of cervical dysplasia. VITAL SIGNS Weight 88.5 kg, height 149 cm. Temperature 36.2, pulse 84, respirations 16, blood pressure 110/68. PHYSICAL EXAMINATION GENERAL: Well-developed, well-nourished, obese female, in no apparent distress. Alert and oriented x3. Normal affect. ABDOMEN: Soft, obese, nontender. Positive bowel sounds. Fundus not palpated. Incision is healing. There is no induration. There is some erythema at the left edge of the incision. There is no drainage. There is no evidence of dehiscence. There is a foul odor consistent with cellulitis that has improvedfrom last week. At the left edge of the incision, the patient has a 2 x 3 cm scald that looks like acontact burn and it is tender to palpation. EXTREMITIES: No clubbing, cyanosis, or edema. Nontender bilaterally. GENITALIA: Exam deferred. RECTAL: Exam declined by patient. IMPRESSION/REPORT/PLAN 1. visit status post repeat section 06/20/2014. 2. Pelvic adhesive disease. 3. Incision cellulitis on Keflex antibiotic. 4. Burn on the abdominal skin at the left edge of the incision. 5. Nursing. 6. Suspect hemorrhoids with streaking of blood on stools. 7. History of depression, currently asymptomatic. PLAN: 1. I discussed the patient's constipation and straining, which she reports doing the last few weeks.She now has some streaks of blood on her stools. I discussed with patient I suspect this is secondary to hemorrhoids. She declines emanation today. I recommend the patient continue stool softener. I recommend that she use ygrs-bwb-lbfdbig preparation H as directed on the package to help with the hemorrhoids which will help with the bleeding. If these symptoms continue, she needs to come in for evaluation and will need to evaluate her rectum for possible hemorrhoids or fissures. I encouraged soft diet, fruit and lots of fluid in her diet. 2. I discussed the patient's incision. It appears that she has a 2 x 3 cm scald with a burn at the left edge of her incision, which I suspect is secondary to the hot baths and hot washcloths that she is using on her incisions. I recommend the patient stop doing the hot baths and putting hot washclothsand hot water on the incision to clean it. 3. I would like the patient to use a hydrocortisone cream and/or a soothing burn ointment, which shecan get bgim-zff-klwstfl at the pharmacy, on this burn in the left edge of her incision. I discussedthis with the patient. 4. I would like the patient to finish the full course of Keflex antibiotics. Her incision is healing. The erythema is decreasing and there is no further induration. There is no drainage. 5. Incision care and hygiene is discussed with the patient. 6. I discussed bathing and hygiene habits with the patient. I have recommended the patient keep the incision clean and dry. 7. Routine postop precautions, recommendations, instructions are reviewed with patient. 8. Routine depression precautions are reviewed with patient. 9. Nursing is encouraged. 10. I would like the patient to keep her appointment in clinic next week as scheduled or be seen sooner. 11. I discussed the patient's headaches. She reports she has been having some occasional headaches. She has taken no pain medication. I encouraged her to take Tylenol or ibuprofen as needed for these headaches. I also encouraged lots of fluids and to try an occasional drink with caffeine. 12. Patient has received 1 dose of Depo-Provera in the hospital prior to discharge she would like a Mirena IUD for long-term contraception. Will put this in at her 6 to 8-week visit. 13. I spent 30 minutes wfbn-xp-aigr time with patient with over 50% of that time spent in counseling. Todd Aponte M.D./ruiz Electronically Signed By: TODD APONTE MD On: 07/13/2014 01:24 PM Source: [facility] MHSDOLBEYNONRADSYS Document Id: [id number] documented in this encounter Miscellaneous Notes Miscellaneous - Todd Aponte M.D. - 07/12/2014 5:06 PM CDT Ambulatory Patient Summary [address] [id number] Visit Information Name: BARBRA GIMENEZ [facility] Number: [id number] Current Date: 07/12/2014 17:06:05 Physicians Attending Provider: TODD APONTE MD Primary Care Provider: TODD APONTE MD AMYM BARBRA MAYORGA has been given the following list of [...] Take Indications/Special Instructions/Comments/Notes for Patient Medication Changes/Routing cephalexin (Keflex 500 mg oral capsule) 1 cap, Oral, two times a day x 10 day(s) *medroxyPROGESTERone (Depo-Provera Contraceptive) 150 mg, Intramuscular, once multivitamin, ( Multivitamins oral tablet) 1 Tablet(s), Oral, once a day * You have let us know that you are not taking this medication as listed. Please talk with your primary care provider or the health care provider who prescribed the medication as soon as possible. Stop Taking the Following Medications: Medication list as of 07-12-14 17:06 Attention: If you have any medications at [...] Electronically Signed By: TODD APONTE MD Signed On:12-JUL-2014 17:06:01 Your Allergies & Intolerances Substance Reaction Symptoms Category Comments Cats Other has allergy to cats Your Problem List Problem Status Onset Comments Family History of Diabetes Mellitus Active Adhesion Pelvic Female Active Your Upcoming Appointments Date Time Location Provider 07/18/2014 14:30 [facility] RIGGER CHIEF Todd Aponte MD Attention: Contact your local Clinic if further appointment detail needed. Your Goals/Additional instructions: Source: [facility] POWERCHART Document Id: [id number] Miscellaneous - Todd Aponte M.D. - 07/12/2014 5:06 PM CDT Ambulatory Discharge Medication List [address] [id number] Visit Information Name: BARBRA GIMENEZ MUKESH [facility] Number: [id number] Visit Date: 07/12/2014 17:06:04 Attending Provider: TODD APONTE MD Primary Care Provider: TODD APONTE MD BARBRA GIMENEZ has been given the following list of medications: Your Medications It is important to take your medications as directed. Use a pill box or chart to help remind you to take your medications. Please let your doctor or nurse know if you have problems taking your medications. Medication/Strength How to Take Indications/Special Instructions/Comments/Notes for Patient Medication Changes/Routing cephalexin (Keflex 500 mg oral capsule) 1 cap, Oral, two times a day x 10 day(s) *medroxyPROGESTERone (Depo-Provera Contraceptive) 150 mg, Intramuscular, once multivitamin, ( Multivitamins oral tablet) 1 Tablet(s), Oral, once a day * You have let us know that you are not taking this medication as listed. Please talk with your primary care provider or the health care provider who prescribed the medication as soon as possible. Stop Taking the Following Medications: Medication list as of 07-12-14 17:06 Attention: If you have any medications at [...] Electronically Signed By: TODD APONTE MD Signed On:12-JUL-2014 17:06:01 Additional Information: Source: [facility] POWERCHART Document Id: [id number] Miscellaneous - Conversion, Historical Provider Ser - 07/12/2014 4:29 PM CDT Adult Stockroom Clerk Intake/History Adult Stockroom Clerk Intake/History Entered On: 07/12/2014 16:32 CDT Performed On: 07/12/2014 16:29 CDT by REUBEN RODRÍGUEZ LPN Intake Chief Complaint : Abdomianl and Kidney pain, Rectal bleeding, and headaches. Temperature Core : 36.2 DegC(Converted to: 97.2 DegF) (LOW) Peripheral Pulse Rate : 84 /min Respiratory Rate : 16 /min Systolic Blood Pressure : 110 mmHg Diastolic Blood Pressure : 68 mmHg NIBP Mean : 82 mmHg BP Location : Right upper extremity Height : 149 cm(Converted to: 4 ft 11 inch(es), 59 inch(es)) Actual Weight : 88.5 kg(Converted to: 195 lb 2 oz) Weight Source : Standing scale Dosing Weight Clinic : 88.5 kg Clinic BSA : 1.91 Body Mass Index : 39.86 kg/m2 REUBEN RODRÍGUEZ LPN - 07/12/2014 16:29 CDT General Info Information Given By : Patient Preferred Communication Mode : Verbal Languages : [place] Is Patient Female and 13-50 no hysterectomy : Yes Status : Patient denies Are you ? : Yes REUBEN RODRÍGUEZ LPN - 07/12/2014 16:29 CDT Subjective Pain Symptoms : Yes REUBEN RODRÍGUEZ LPN - 07/12/2014 16:29 CDT Pain Pain Assessment Grid Pain 1 Pain 2 Pain 3 Location : Abdomen Lower back Head Laterality : Bilateral REUBEN RODRÍGUEZ LPN - 07/12/2014 16:29 CDT REUBEN RODRÍGUEZ LPN - 07/12/2014 16:29 CDT MANUELITO RODRÍGUEZ LPN - 07/12/2014 16:29 CDT Dependent Habits Tobacco Use/Currently Using : No Exposure to Tobacco Smoke : Lives with someone who smokes, Other: none Smoking Status : Never smoker REUBEN RODRÍGUEZ [facility] - 07/12/2014 16:29 CDT Caffeine Use Grid Caffeine Use : Current Type : Coffee Frequency : Daily REUBEN RODRÍGUEZ [facility] - 07/12/2014 16:29 CDT Source: [facility] Star Fever AgencyCHART Document Id: [id number] CDT!43 documented in this encounter Plan of Treatment Not on filedocumented as of this encounter Visit Diagnoses Not on filedocumented in this encounter Additional Health Concerns Assessment Noted Time PHQ-9 Depression Total Score: 1 11/16/2012 11:45 AM CS T documented as of this encounter
--- OUTSIDE RECORDS SUMMARY | 2022-07-09 20:43 | XMS_ITS | Encounter Summary ---
:1990 Author Organization [facility] Address [address] [place] [address] Care Team Providers Name Role Phone Unavailable Primary Care Provider Unavailable Encounter Details Date Type Department Care Team Description 04/22/2014 Hospital Encounter HX NO MAPPING Katie Patel [address] [place] [address] (Wo rk) Social History Tobacco Use Types [...] or relatives? How often do you attend nondenominational or Never 2020 restorationist services? Do you belong to any clubs or No 06/25/2021 organizations such as nondenominational groups, unions, fraternal or athletic groups, or [...]
--- OUTSIDE RECORDS SUMMARY | 2022-07-09 20:43 | XMS_ITS | Encounter Summary ---
:1990 Author Organization [facility] Address [address] [place] [address] Care Team Providers Name Role Phone Unavailable Primary Care Provider Unavailable Encounter Details Date Type Department Care Team Description 05/10/2014 Hospital Encounter HX NO MAPPING Matthew Aponte M.D. Social History Tobacco Use Types Packs/Day Years [...] do you attend restoration or Never 2020 mandaeism services? Do you [...]
--- OUTSIDE RECORDS SUMMARY | 2022-07-09 20:43 | XMS_ITS | Encounter Summary ---
:1990 Author Organization [facility] Address [address] [place] [address] Care Team Providers Name Role Phone Unavailable Primary Care Provider Unavailable Encounter Details Date Type Department Care Team Description 04/16/2014 Hospital Encounter HX NO MAPPING Provider, Historical Social History Tobacco Use Types Packs/Day Years [...] do you attend mormon or Never 2020 jain services? Do you [...]
--- OUTSIDE RECORDS SUMMARY | 2022-07-09 20:43 | XMS_ITS | Encounter Summary ---
:1990 Author Organization [facility] Address [address] [place] [address] Care Team Providers Name Role Phone Unavailable Primary Care Provider Unavailable Encounter Details Date Type Department Care Team Description 07/05/2014 Hospital Encounter HX [facility] Todd Dinero [...] or relatives? How often do you attend rastafari or Never 2020 restorationist services? Do you belong to any clubs or No 06/25/2021 organizations such as rastafari groups, unions, fraternal or athletic groups, or [...] place to sleep or slept in a long term (including now)? Sex Assigned at Date Recorded Female 04/12/2018 10:21 PM CDT documented as of this encounter Last Filed Vital Signs Vital Sign Reading Time Taken Comments Blood Pressure 110/78 07/05/2014 2:33 PM CDT Pulse 76 07/05/2014 2:33 PM CDT Temperature - - Respiratory Rate - - Oxygen Saturation - - Inhaled Oxygen Concentration - - Weight - - Height 149 cm (4' 10.66) 07/05/2014 2:33 PM CDT Body Mass Index - - documented in this encounter Progress Notes Todd Aponte M.D. - 07/05/2014 2:24 PM CDT [id number] CHIEF COMPLAINT/REASON FOR VISIT 1. visit. 2. Possible postop infection. HISTORY OF PRESENT ILLNESS This patient is a 23-year-old -0-0-3 female who presents for visit. She underwent repeat section on 06/20/2014, delivering a viable female infant. The patient presents for visit. She reports light lochia which has not stopped yet. She denies heavy blood flow or blood clots. She reports good pain control and she stopped her pain medication. She denies fevers or chills. No shortness of breath or chest pain. No headaches or vision changes. No depression symptoms. Thepatient is both nursing and bottle feeding. The patient complains of a foul odor and smell from her incision that has been ongoing for the last week. She also reports that her incision is moist and damp. She denies leaking of fluid. She denies fevers or chills. No difficulty urinating. She does complain of constipation and is still having some problems with straining with bowel movements . ALLERGIES No known drug allergies. MEDICATIONS 1. Generic vitamins. 2. Colace recommended. Patient would like to use [id number]. 3. Keflex, new prescription given to the patient today. 4. Depo-Provera given on 06/22/2014. 5. Rubella immunization given on 06/22/2014. PAST MEDICAL/SURGICAL HISTORY PAST MEDICAL HISTORY: 1. Obesity. 2. GERD. 3. Seasonal allergic rhinitis. 4. Depression. 5. History of overdose and suicide attempt. 6. Constipation. 7. Pelvic adhesions. PAST SURGICAL HISTORY: 1. section 2009. 2. section 2012. 3. section 06/20/2014. PAST OBSTETRICAL HISTORY: 1. section 11/26/2009, 37 weeks, male infant, 6 pounds, 10 ounces, progressive dilation. 2. section 06/01/2013, 39 weeks, male , 2905 g. 3. section 06/20/2014, 39 weeks, female infant, 2550 g with dense pelvic adhesions. SOCIAL HISTORY Patient is single. She denies tobacco, alcohol or drug use. She was treated for chlamydia in 2012. No history of cervical dysplasia. No history of abuse. VITAL SIGNS Weight declined by patient. Height 149 cm. Pulse 76, blood pressure 110/78, temperature 36.6. PHYSICAL EXAMINATION GENERAL: Well-developed, well-nourished, obese female, in no apparent distress. Alert and oriented x3. Normal affect. ABDOMEN: Obese, soft, nontender. Positive bowel sounds. Fundus not palpated. Incision is moist with erythema around the incision and mild tenderness consistent with cellulitis. No induration. No drainage. No evidence of dehiscence. There is a foul odor consistent with cellulitis. EXTREMITIES: No clubbing, cyanosis or edema. Nontender bilaterally. GENITAL: Deferred. IMPRESSION/REPORT/PLAN 1. visit status post repeat section 06/20/2014. 2. History of 3 prior sections. 3. Pelvic adhesive disease. 4. Suspected incision cellulitis from her section. 5. Nursing and bottle feeding. 6. History of depression, currently asymptomatic. PLAN: 1. I discussed the patient's incision. I discussed postoperative cellulitis at her incision. I gave the patient prescription for Keflex 500 mg by mouth 2 times a day x10 days, #20 pills. I discussed use of this medication with the patient. I discussed hygiene and bathing habits with the patient. I encouraged the patient to keep the incision clean and dry. 2. Postoperative incision care discussed with the patient. 3. Routine postoperative precautions, recommendations, instructions are reviewed with the patient. 4. Routine precautions are reviewed with the patient. 5. Routine depression precautions are reviewed with the patient. 6. Nursing is encouraged. 7. I would like the patient follow up in 2 weeks for visit and incision check or be seen sooner as needed. 8. Patient will follow up immediately if her incision symptoms worsen. 9. The patient has received 1 dose of Depo-Provera in the hospital prior to discharge. She would like a Mirena IUD for long-term contraception. 10. I spent 25 minutes in [id number] time with the patient, with over 50% of that time spent in counseling. Todd Aponte M.D./ruiz Electronically Signed By: TODD APONTE MD On: 07/09/2014 09:04 AM Source: [facility] MHSDOLBEYNRAJI Document Id: [id number] documented in this encounter Miscellaneous Notes Miscellaneous - Todd Aponte M.D. - 07/05/2014 3:10 PM CDT Ambulatory Patient Summary [address] [id number] Visit Information Name: BARBRA GIMENEZ [facility] Number: [id number] Current Date: 07/05/2014 15:10:04 Physicians Attending Provider: TODD APONTE MD Primary Care Provider: TODD APONTE MD AMMY BARBRA MAYORGA has been given the following [...] two times a day x 10 day(s) New Routed to [address] [id number] multivitamin, ( Multivitamins oral tablet) 1 Tablet(s), Oral, once a day Stop Taking the Following Medications: Medication list as of 07-05-14 15:10 Attention: If you have any medications at [...] Electronically Signed By: TODD APONTE MD Signed On:05-JUL-2014 15:09:59 Your Allergies & Intolerances Substance Reaction Symptoms Category Comments Cats Other has allergy to cats Your Problem List Problem Status Onset Comments Family History of Diabetes Mellitus Active Mild Hyperemesis Gravidarum, Antepartum Condition or Complication Active 10/26/2012 Previous delivery, antepartum Active 10/27/2013 Labor >22 Active Your Upcoming Appointments Date Time Location Provider 07/18/2014 14:30 [facility] Todd Aponte MD Attention: Contact your local Clinic if further appointment detail needed. Your Goals/Additional instructions: Source: [facility] [employer] Document Id: [id number] Miscellaneous - Todd Aponte M.D. - 07/05/2014 3:10 PM CDT Ambulatory Discharge Medication List [address] [id number] Visit Information Name: BARBRA GIMENEZ [facility] Number: [id number] Visit Date: 07/05/2014 15:10:02 Attending Provider: TODD APONTE MD Primary Care Provider: TODD APONTE MD AMMY BARBRA MAYORGA has been given the following [...] two times a day x 10 day(s) New Routed to [address] [id number] multivitamin, ( Multivitamins oral tablet) 1 Tablet(s), Oral, once a day Stop Taking the Following Medications: Medication list as of 07-05-14 15:10 Attention: If you have any medications at [...] Electronically Signed By: TODD APONTE MD Signed On:05-JUL-2014 15:09:59 Additional Information: Source: [facility] [employer]ART Document Id: [id number] Miscellaneous - Kylee Crespo L.P.N. - 07/05/2014 2:33 PM CDT Adult Center Punch Operator Intake/History Adult Center Punch Operator Intake/History Entered On: 07/05/2014 14:37 CDT Performed On: 07/05/2014 14:33 CDT by KYLEE CRESPO LPN Intake Chief Complaint : Post op Ambulatory Intake Additional Information : c/o a lot of pain, bleeding, bleeding from rectum, constipation c/o discharge and foul odor from incision Peripheral Pulse Rate : 76 /min Systolic Blood Pressure : 110 mmHg Diastolic Blood Pressure : 78 mmHg NIBP Mean : 89 mmHg BP Location : Left upper extremity Blood Pressure Cuff Size : Regular Height : 149 cm(Converted to: 4 ft 11 inch(es), 59 inch(es)) Weight Source : Standing scale KYLEE CRESPO LPN - 07/05/2014 14:33 CDT General Info Information Given By : Patient Languages : Azerbaijani Is Patient Female and 13-50 no hysterectomy : Yes Status : Patient denies Are you ? : Yes KYLEE CRESPO LPN - 07/05/2014 14:33 CDT Subjective Pain Symptoms : No KYLEE CRESPO LPN - 07/05/2014 14:33 CDT Dependent Habits Tobacco Use/Currently Using : No Exposure to Tobacco Smoke : Lives with someone who smokes, Other: none Smoking Status : Never smoker KYLEE CRESPO LPN - 07/05/2014 14:33 CDT Caffeine Use Grid Caffeine Use : Current Type : Coffee Frequency : Daily KYLEE CRESPO LPN - 07/05/2014 14:33 CDT Source: [facility] [employer] Document Id: [id number] CDT!29 documented in this encounter Plan of Treatment Not on filedocumented as of this encounter Visit Diagnoses Not on filedocumented in this encounter Additional Health Concerns Assessment Noted Time PHQ-9 Depression Total Score: 1 11/16/2012 11:45 AM CS T documented as of this encounter
--- OUTSIDE RECORDS SUMMARY | 2022-07-09 20:43 | XMS_ITS | Encounter Summary ---
:1990 Author Organization [facility] Address [address] [place] [address] Care Team Providers Name Role Phone Unavailable Primary Care Provider Unavailable Encounter Details Date Type Department Care Team Description 06/18/2014 Hospital Encounter HX [facility] Todd Dinero [...] or relatives? How often do you attend sikhism or Never 2020 mosque services? Do you belong to any clubs or No 06/25/2021 organizations such as sikhism groups, unions, fraternal or athletic groups, or [...] Sign Reading Time Taken Comments Blood Pressure 116/88 06/18/2014 2:36 PM CDT Pulse - - Temperature - - Respiratory Rate - - Oxygen Saturation - - Inhaled Oxygen Concentration - - Weight 97.2 kg (214 lb 4.6 oz) 06/18/2014 2:36 PM CDT Height 149 cm (4' 10.66) 06/18/2014 2:36 PM CDT Body Mass Index 43.78 06/18/2014 2:36 PM CDT documented in this encounter Progress Notes Todd Aponte M.D. - 06/18/2014 2:30 PM CDT [id number] CHIEF COMPLAINT/REASON FOR VISIT Routine OB visit. HISTORY OF PRESENT ILLNESS This patient is a 23-year-old, G3, P2-0-0-2 female with LMP of 09/20/2013, EDC of 06/27/2014, at 38-5/7 weeks. Patient presents for OB visit. She has complicated by prior section x2,obesity, GERD, seasonal allergic rhinitis, history of depression, rubella nonimmune status, labor at 31 weeks during this . The patient was given betamethasone x2 doses on 04/22/2014 and 04/23/2014. The patient is doing well. She reports active movement. She continues to have irregular contractions when she is active and standing, and this resolves when she rests. No current contractions. She has some pelvic pressure when she is on her feet and this again resolves when she rests. She deniesleaking of fluid or vaginal bleeding. No headaches or vision changes. No depression symptoms. No fevers or chills. No difficulty urinating. The patient does report some increased nausea over the last week with occasional emesis. This has been ongoing for the whole . She is tolerating diet well today. No emesis today. No stomach pain or discomfort other than the contractions as mentioned. ALLERGIES No known drug allergies. MEDICATIONS Generic vitamins. PAST MEDICAL/SURGICAL HISTORY PAST MEDICAL HISTORY: 1. Obesity. 2. GERD. 3. Seasonal allergic rhinitis. 4. Depression. 5. History of overdose and suicide attempt. PAST SURGICAL HISTORY: 1. section, 2009. 2. section, 2012. PAST OBSTETRICAL HISTORY: 1. section, 11/26/2009. 2. section, 06/01/2013. SOCIAL HISTORY Patient is single. She denies tobacco, alcohol, or drug use. She was treated for chlamydia in 2012. No history of cervical dysplasia. No history of abuse. VITAL SIGNS Weight 97.2 kg, height 149 cm. Blood pressure 116/88, pulse 66. PHYSICAL EXAMINATION GENERAL: Well-developed, well-nourished gravid female in no apparent distress. Alert and oriented times 3. Normal affect. ABDOMEN: Obese, gravid, soft and nontender. Fundal height is 38 cm. Positive heart tones, 140 beats per minute. Vertex presentation by Katie. Well- healed Pfannenstiel skin incision. EXTREMITIES: No edema or tenderness. GENITALIA: Cervix is 1 cm dilated, 3 cm thick, 0 station. Cephalic presentation confirmed. No changefrom prior examination. DIAGNOSTICS 06/06/2014: GBS culture negative. IMPRESSION/REPORT/PLAN 1. Intrauterine at 38-5/7 weeks. Positive cardiac activity. 2. History of 2 prior sections. 3. Rubella nonimmune status. 4. Persistent nausea in . 5. History of labor at 31 weeks this gestation. The patient was given betamethasone x2 doseson 04/22/2014 and 04/23/2014. 6. Obesity. 7. History of depression. PLAN: 1. The patient is scheduled for elective repeat section on 06/20/2014 at [facility] at 39-0/7 weeks. She has no questions about repeat section. 2. Patient will be nothing by mouth for at least 8 hours prior to surgery. 3. Routine obstetric precautions, recommendations, and instructions are reviewed with patient including movement and kick counts. 4. Labor precautions are reviewed with the patient. 5. The patient has already been seen for preoperative history and physical examination. 6. Patient's questions about contraception. I discussed contraception options for the patient. The patient is now interested in Depo-Provera immediately , and then she would like to transition to a Mirena IUD at her visit. 7. I spent 25 minutes in skyd-yq-lcha time with patient, with over 50% of that time spent in counseling. Todd Aponte M.D./ruiz Electronically Signed By: TODD APONTE MD On: 06/20/2014 10:12 AM Source: [facility] MHSDOLBEYNONRADSYS Document Id: [id number] documented in this encounter Miscellaneous Notes Telephone Encounter - Todd Aponte M.D. - 07/04/2014 12:00 AM CDT [id number] Ms. Chun no-showed her appointment in the [facility] today. Todd Aponte M.D./ruiz Electronically Signed By: TODD APONTE MD On: 07/05/2014 11:38 AM Source: [facility] MHSDOLBEYNONRADSYS Document Id: [id number] Miscellaneous - Todd Aponte M.D. - 06/18/2014 3:00 PM CDT Ambulatory Patient Summary [address] [id number] Visit Information Name: AMMY BARBRA MAYORGA [facility] Number: [id number] Current Date: 06/18/2014 15:00:16 Physicians Attending Provider: TODD APONTE MD Primary Care Provider: TODD APONTE MD AMMYHIMANSHUBARBRAJOSEY MAYORGA has been given the following list [...] Instructions/Comments/Notes for Patient Medication Changes/Routing multivitamin, ( Multivitamins oral tablet) 1 Tablet(s), Oral, once a day Stop Taking the Following Medications: Medication list as of 06-18-14 15:00 Attention: If you have any medications at [...] Electronically Signed By: TODD APONTE MD Signed On:18-JUN-2014 15:00:09 Your Allergies & Intolerances Substance Reaction Symptoms Category Comments Cats Other has allergy to cats Your Problem List Problem Status Onset Comments Family History of Diabetes Mellitus Active Mild Hyperemesis Gravidarum, Antepartum Condition or Complication Active 10/26/2012 Previous delivery, antepartum Active 10/27/2013 Labor >22 Active Your Upcoming Appointments Date Time Location Provider 07/04/2014 13:30 [facility] CANCELING AND CUTTING CONTROL CLERK Todd Aponte MD Attention: Contact your local Clinic if further appointment detail needed. Your Goals/Additional instructions: Source: [facility] [employer] Document Id: [id number] Miscellaneous - Todd Aponte M.D. - 06/18/2014 3:00 PM CDT Ambulatory Discharge Medication List [address] [id number] Visit Information Name: BARBRA CHUN MUKESH [facility] Number: [id number] Visit Date: 06/18/2014 15:00:15 Attending Provider: TODD APONTE MD Primary Care Provider: TODD APONTE MD BARBRA CHUNLE has been given the following list of medications: Your Medications It is important to take your medications as directed. Use a pill box or chart to help remind you to take your medications. Please let your doctor or nurse know if you have problems taking your medications. Medication/Strength How to Take Indications/Special Instructions/Comments/Notes for Patient Medication Changes/Routing multivitamin, ( Multivitamins oral tablet) 1 Tablet(s), Oral, once a day Stop Taking the Following Medications: Medication list as of 06-18-14 15:00 Attention: If you have any medications at [...] Electronically Signed By: TODD APONTE MD Signed On:18-JUN-2014 15:00:09 Additional Information: Source: [facility] [employer] Document Id: [id number] Miscellaneous - Kylee Crespo L.P.N. - 06/18/2014 2:36 PM CDT Adult Anesthesiologist Assistant Certified Intake/History Adult Anesthesiologist Assistant Certified Intake/History Entered On: 06/18/2014 14:37 CDT Performed On: 06/18/2014 14:36 CDT by KYLEE CRESPO LPN Intake Chief Complaint : Ob visit 38 5/ LMP Date : 09/20/13 Systolic Blood Pressure : 116 mmHg Diastolic Blood Pressure : 88 mmHg NIBP Mean : 97 mmHg BP Location : Right upper extremity Blood Pressure Cuff Size : Regular Height : 149 cm(Converted to: 4 ft 11 inch(es), 59 inch(es)) Actual Weight : 97.2 kg(Converted to: 214 lb 5 oz) Weight Source : Standing scale Dosing Weight Clinic : 97.2 kg Clinic BSA : 2.01 Body Mass Index : 43.78 kg/m2 KYLEE CRESPO LPN - 06/18/2014 14:36 CDT General Info Information Given By : Patient Languages : Mongolian Is Patient Female and 13-50 no hysterectomy : Yes Status : Confirmed positive Are you ? : No KYLEE CRESPO LPN - 06/18/2014 14:36 CDT Subjective Pain Symptoms : No KYLEE CRESPO LPN - 06/18/2014 14:36 CDT Dependent Habits Tobacco Use/Currently Using : No Exposure to Tobacco Smoke : Lives with someone who smokes, Other: none Smoking Status : Never smoker KYLEE CRESPO LPN - 06/18/2014 14:36 CDT Caffeine Use Grid Caffeine Use : Current Type : Coffee Frequency : Daily KYLEE CRESPO LPN - 06/18/2014 14:36 CDT [facility] Document Id: [id number] CDT!32 documented in this encounter Plan of Treatment Not on filedocumented as of this encounter Visit Diagnoses Not on filedocumented in this encounter Additional Health Concerns Assessment Noted Time PHQ-9 Depression Total Score: 1 11/16/2012 11:45 AM CS T documented as of this encounter
--- OUTSIDE RECORDS SUMMARY | 2022-07-09 20:43 | XMS_ITS | Encounter Summary ---
:1990 Author Organization [facility] Address [address] [place] [address] Care Team Providers Name Role Phone Unavailable [...] or relatives? How often do you attend buddhism or Never 2020 faith services? Do you belong to any clubs or No 06/25/2021 organizations such as buddhism groups, unions, fraternal or athletic groups, or [...] Encounter - Conversion, Historical Provider Ser - 09/05/2015 11:36 AM CST *Phone Message Document Contains Addenda Addendum by DEVON SAUCEDA LPN on 05 September 2015 12:57:48 THERAPY TECHNICIAN Left message for Shefali, if Dr. Chang is not available, pt should proceed to [facility] and Dr. Foley will see. Addendum by DEVON SAUCEDA LPN on 05 September 2015 12:18:[address] Foley should be seen by Rossi LOZOYA as he is in surgery all day. Per Rossi Meehan isin unavailable and she will contact Dr. Chang as he has afternoon clinic in [facility]. From: LEANNE LONG (MIGUE Gamarguerite Nurse) To: MIGUE Ears Nose Throat/Audiology Nurse; Sent: 09/05/2015 11:36:31 THERAPY TECHNICIAN ! Subject: *Phone Message Caller is: ( ) Patient ( ) Mother ( ) Father ( ) Spouse ( ) Daughter ( ) Son ( ) Pharmacy ( x ) Other: Shefali from [facility] ([facility]) Physician: Patient MRN #: Reason for Call: URGENT: patient has abscess on tonsil, needs to get removed mayra. Call Shefali back at [phone]. She is at the [facility] at [facility]. Message: Advice/Action: Source used: ( ) Verbalizes understanding of instructions ( ) Instructed to call back if symptoms worsen or do not resolve ( ) Refused to see provider ( ) Appointment Scheduled ( ) OK to leave message on voice mail ( x ) Patient told to expect return call: ( x ) today ( ) tomorrow ( ) next work day ( ) Patient's email ( ) Patient told physician out of office, will call upon return call on ( ) ( ) Patient told physician out of office, routed to other physician ( ) Other ( ) Call back telephone number ( ) Call back cell phone number ( ) Source: [facility] POWERCHART Document Id: [id number] documented in this encounter Plan of Treatment Not on filedocumented as of this encounter Visit Diagnoses Not on filedocumented in this encounter Additional Health Concerns Assessment Noted Time PHQ-9 Depression Total Score: 1 11/16/2012 11:45 AM CS T documented as of this encounter
--- OUTSIDE RECORDS SUMMARY | 2022-07-09 20:43 | XMS_ITS | Encounter Summary ---
:1990 Author Organization [facility] Address [address] [place] [address] Care Team Providers Name Role Phone Unavailable Primary Care Provider Unavailable Encounter Details Date Type Department Care Team Description 04/04/2014 Hospital Encounter HX [facility] Todd Dinero [...] do you attend holiness or Never 2020 sikh services? Do you belong to any clubs [...] Sign Reading Time Taken Comments Blood Pressure 118/78 04/04/2014 8:37 AM CDT Pulse - - Temperature - - Respiratory Rate - - Oxygen Saturation - - Inhaled Oxygen Concentration - - Weight 91.7 kg (202 lb 2.6 oz) 04/04/2014 8:37 AM CDT Height 149 cm (4' 10.66) 04/04/2014 8:37 AM CDT Body Mass Index 41.31 04/04/2014 8:37 AM CDT documented in this encounter Progress Notes Todd Aponte M.D. - 04/04/2014 8:32 AM CDT [id number] CHIEF COMPLAINT/REASON FOR VISIT Routine OB visit HISTORY PRESENT ILLNESS This patient is 23-year-old G3, P2-0-0-2 female with LMP of 09/20/2013 and EDC of 06/27/2014 at 28 and 0/7 weeks. Patient presents for OB visit and Glucola. The patient was seen in clinic yesterday by my partner, complained of cramping and contractions. She was found to have no contractions and her cervix is closed and thick. She had an urine culture obtained to check for possible urinary tract infection. The patient now presents today for followup for Glucola diabetic screen as well as re-evaluation of her cramping. The patient reports active movement. She denies leaking of fluid or vaginal bleeding. She denies pelvic pressure. She does continue to have irregular uterine contractions that are worse when she is standing at work. She denies current contractions, but does report contractions 3 to 4 per hour overnight. The patient denies headaches or vision changes. She denies depression symptoms. The patient complains urinary frequency. She reports that she is urinating more frequently now.She denies dysuria or hematuria. The symptoms have been ongoing for the last 4 weeks. She does not recall similar symptoms with her other pregnancies. No vaginal itching, irritation, or discharge. ALLERGIES No known drug allergies. MEDICATIONS Generic vitamins. PAST MEDICAL/SURGICAL HISTORY PAST MEDICAL HISTORY: 1. Obesity. 2. History of GERD. 3. Seasonal allergic rhinitis. 4. History depression. 5. History of overdose and suicide attempt. PAST SURGICAL HISTORY: 1. section in 2009. 2. section in 2012 PAST OBSTETRICAL HISTORY: 1. section on 11/26/2009. 2. section on 06/01/2013. SOCIAL HISTORY The patient is single. She denies tobacco, alcohol, or drug use. She has a history of chlamydia in 2012, which was treated. No history of cervical dysplasia. No history of abuse. VITAL SIGNS Weight 91.7 kg, height 149 cm, blood pressure 118/78, pulse 68. PHYSICAL EXAMINATION GENERAL: Well-developed, well-nourished female in no apparent distress. Alert and oriented x 3. Normal affect. Patient appears groomed appropriately. SKIN: Normal without evidence of rashes or lesions. HEAD: Head within normal limits. ENT: Neck is supple and within normal limits. Oropharynx is clear. No cervical adenopathy or tenderness. Trachea is midline. THYROID: No thyromegaly or tenderness. BREASTS: No masses, tenderness, skin changes, adenopathy or discharge. HEART: Regular rate and rhythm without murmur. No rubs or gallops. No JVD. No peripheral vascular disease. LUNGS: Clear to auscultation bilaterally with good inspiratory effort. ABDOMEN: Soft, nontender, and nondistended. Positive bowel sounds. No enlarged groin nodes palpable.No hepatosplenomegaly. No rebound. No guarding. No evidence of hernias present. Fundal height is 28 cm. Positive Doptones are auscultated, 152 beats per minute. Vertex presentation by Damion. Well-healed Pfannenstiel skin incision. RECTUM: Normal sphincter tone. Examination confirms genital examination. GENITALIA: Normal external female genitalia. Normal BUS. Normal vaginal rugae without lesions. Cervix is normal. Multiparous. External cervical os with closed internal cervical os. The cervix is 4 cm thick. High station. Cephalic presentation confirmed. SPINE: No CVA tenderness bilaterally. EXTREMITIES: No clubbing, cyanosis or edema. Nontender bilaterally. GAIT: Normal gait. NEUROLOGICAL: No gross motor or sensory deficits noted. DIAGNOSTICS 03/16/2014, urine culture no growth. 04/03/2014, urine culture pending. 04/04/2014, diabetic screen 147, hemoglobin 11.1. PROCEDURE I discussed having the patient do a nonstress test to evaluate or wait for contractions. The patientdeclined. IMPRESSION/REPORT/PLAN 1. Intrauterine at 28 and 0/7 weeks. Positive cardiac activity. 2. History of 2 prior sections. 3. Rubella nonimmune status. 4. Obesity. 5. Urinary frequency with negative recent urine culture. 6. Irregular uterine contractions with no cervical change. 7. History depression, currently stable, off medication. 8. History of gastroesophageal reflux disease, currently stable, off medication. 9. History of seasonal allergic rhinitis. Currently stable, off medication. PLAN: 1. Reassurance given to the patient. Her cervix is closed and thick. There is no change from examination yesterday or from examination 3 weeks ago. The patient reports irregular uterine contractions. Ioffered to do nonstress test to evaluate the fetus and check for contractions frequency and the patient declines. She reports she is not really having a contractions currently. Wet prep not performed as she had a pelvic exam without discharge, ertythema or foul odor. If her symptoms continue then I recommend doing a wet prep. 2. labor precautions with the patient. 3. I reviewed diabetic screen results, which are elevated at 147, I recommend checking a 3-hour glucose tolerance test. The patient had an elevated 1-hour Glucola with the last and also underwent a 3-hour glucose tolerance test with normal results. Reviewed the instructions with the patient.She will go to the front to have this scheduled. She will come in fasting state. 4. I would like to see the patient back in 2 weeks for OB visit or be seen sooner. I would like for her to do the 3-hour glucose tolerance test prior to that visit. 5. I will contact the patient with results of the urine culture later this week. If it is positive, I will be happy to treat the patient. She has no CVA tenderness or evidence of infection. I discussedurinary frequency in . 6. Routine OB precautions, recommendations, instructions reviewed with the patient including movement and kick counts. 7. labor precautions with the patient. 8. I gave the patient a work note recommending that she take frequent breaks and avoid heavy liftingover 25 pounds for the rest of the . 9. I would like the patient follow up in 2 weeks as mentioned above or be seen sooner. 10. I recommend elective repeat section at term. 11. I spent 30 minutes [id number] time with the patient with over 50% time spent in counseling. Todd Aponte M.D./ruiz Electronically Signed By: TODD APONTE MD On: 04/04/2014 11:01 AM Modified by and Electronically Signed by: TODD APONTE MD On: 04/04/2014 11:01 AM Source: [facility] MHSDOLBEYNONRADSYS Document Id: [id number] documented in this encounter Procedure Notes Nori Hong L.PWanderN. - 04/04/2014 8:41 AM CDT Hemoglobin POC Hemoglobin POC Entered On: 04/04/2014 8:41 CDT Performed On: 04/04/2014 8:41 CDT by NORI HONG Hemoglobin POC Hgb POC : 11.1 gm/dL (LOW) Site : Finger, Right NORI HONG - 04/04/2014 8:41 CDT Source: [employer] Document Id: [id number] CDT!4 Nori Hong L.P.N. - 04/04/2014 8:41 AM CDT Glucose 1 Hr OB POC Glucose 1 Hr OB POC Entered On: 04/04/2014 8:41 CDT Performed On: 04/04/2014 8:41 CDT by NORI HONG Glucose 1 Hr OB POC Glucose 1 Hr OB POC Result : 147 mg/dL (HI) Site : Finger, Right NORI HONG - 04/04/2014 8:41 CDT Source: [employer] Document Id: [id number] CDT!4 documented in this encounter Miscellaneous Notes Miscellaneous - Todd Aponte M.D. - 04/04/2014 8:56 AM CDT Ambulatory Patient Summary [address] [id number] Visit Information Name: BARBRA GIMENEZ [facility] Number: [id number] Current Date: 04/04/2014 08:56:30 Physicians Attending Provider: TODD APONTE MD Primary [...] the Following Medications: Medication list as of 04-04-14 08:56 Attention: If you have any medications at [...] Electronically Signed By: TODD APONTE MD Signed On:04-APR-2014 08:56:23 Your Allergies & Intolerances Substance Reaction Symptoms Category Comments Cats Other has allergy to cats Your Problem List Problem Status Onset Comments Family History of Diabetes Mellitus Active Mild Hyperemesis Gravidarum, Antepartum Condition or Complication Active 10/26/2012 Previous delivery, antepartum Active 10/27/2013 Your Upcoming Appointments Date Time Location Reason Provider 04/18/2014 08:15 [facility] 04/18/2014 11:30 [facility]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 Your Goals/Additional instructions: Source: [facility] POWERCHART Document Id: [id number] Miscellaneous - oTdd Aponte M.D. - 04/04/2014 8:56 AM CDT Ambulatory Discharge Medication List [address] [id number] Visit Information Name: BARBRA GIMENEZ [facility] Number: [id number] Visit Date: 04/04/2014 08:56:29 Attending Provider: TODD APONTE MD Primary Care Provider: TODD APONTE MD BARBRA GIMENEZ MUKESH has been given the following list of [...] the Following Medications: Medication list as of 04-04-14 08:56 Attention: If you have any medications at [...] Electronically Signed By: TODD APONTE MD Signed On:04-APR-2014 08:56:23 Additional Information: Source: [facility] POWERCHART Document Id: [id number] Miscellaneous - Todd Aponte M.D. - 04/04/2014 8:47 AM CDT Work Excuse 04 April 2014 BARBRA GIMENEZ [address] [facility] [address] Dear BARBRA GIMENEZ, You were examined in my office on: 04/04/2014 8:45 Reason for work excuse: Medical Illness ( x ) Yes ( _ ) No Injury ( _ ) Yes ( x ) No Is excused from all work: ( _ ) Yes ( x ) No Has work limitations: ( x ) Yes ( _ ) No As follows: no heavy lifting for the rest of the Limitations apply until: _ Follow-Up Appointment : ( _ ) Return to Work date: today Notes: This patient is with an EDC 06/27/2014. I recommend that she not do any heavy lifting over 25 pounds for the rest of the . Sincerely, TODD APONTE [address] [place] [address] [id number] Electronic Signature Electronically Signed By: TODD APONTE MD On: 04 April 2014 This document has images extracted. Source: [facility] [employer] Document Id: [id number] Electronically signed by Maycol, [facility] Clock Assembler [id number] at 02/23/2017 1:43 AM CDT Miscellaneous - Nori Hong L.P.N. - 04/04/2014 8:37 AM CDT Adult Etcher Electrolytic Intake/History Adult Etcher Electrolytic Intake/History Entered On: 04/04/2014 8:38 CDT Performed On: 04/04/2014 8:37 CDT by NORI HONG Intake Chief Complaint : OB visit glucola 28 weeks LMP Date : 09/20/2013 Systolic Blood Pressure : 118 mmHg Diastolic Blood Pressure : 78 mmHg NIBP Mean : 91 mmHg BP Location : Right upper extremity Blood Pressure Cuff Size : Regular Height : 149 cm(Converted to: 4 ft 11 inch(es), 59 inch(es)) Actual Weight : 91.7 kg(Converted to: 202 lb 3 oz) Weight Source : Standing scale Dosing Weight Clinic : 91.7 kg Clinic BSA : 1.95 Body Mass Index : 41.3 kg/m2 NORI HONG - 04/04/2014 8:37 CDT General Info Languages : Sami NORI HONG - 04/04/2014 8:37 CDT Subjective Pain Symptoms : No NORI HONG - 04/04/2014 8:37 CDT Dependent Habits Tobacco Use/Currently Using : No Exposure to Tobacco Smoke : Lives with someone who smokes, Other: none Smoking Status : Never smoker NORI HONG - 04/04/2014 8:37 CDT Caffeine Use Grid Caffeine Use : Current Type : Coffee Frequency : Daily NORI HONG - 04/04/2014 8:37 CDT Source: [facility] [employer] Document Id: [id number] CDT!28 documented in this encounter Plan of Treatment Not on filedocumented as of this encounter Procedures Procedure Name Priority Date/Time Associated Comments Diagnosis HX GLUCOSE 1 HR OB Routine 04/04/2014 8:41 AM Res ults for this POC RESULT CDT procedure are i n the results section. HEMOGLOBIN (HGB), Routine 04/04/2014 8:41 AM Resu lts for this POCT, B CDT procedure are i n the results section. documented in this encounter Results (ABNORMAL) HX GLUCOSE 1 HR OB POC RESULT (04/04/2014 8:41 AM CDT) P athologist Signature HX Glucose 1 147 (H) 79.00 - POWERCHART Hr Ob 139.00 MGDL Specimen (Source) Anatomical Collection Method Collection Time Re ceived Time Location / / Volume Laterality 04/04/2014 8:41 AM CDT Todd Aponte M.D. LAB HISTORICAL ORDERS Performing Organization Address City/State/ZIP Code Phon e Number POWERCHART (ABNORMAL) Hemoglobin (HGB), POCT (04/04/2014 8:41 AM CDT) P athologist Signature Hemoglobin 11.1 (L) 12.0 - 15.5 POWERCHART GMDL Specimen (Source) Anatomical Collection Method Collection Time Re ceived Time Location / / Volume Laterality 04/04/2014 8:41 AM CDT Todd Aponte M.D. LAB POCT ORDERABLES - DEVICE Performing Organization Address City/State/ZIP Code Phon e Number POWERCHART documented in this encounter Visit Diagnoses Not on filedocumented in this encounter Additional Health Concerns Assessment Noted Time PHQ-9 Depression Total Score: 1 11/16/2012 11:45 AM CS T documented as of this encounter
--- OUTSIDE RECORDS SUMMARY | 2022-07-09 20:43 | XMS_ITS | Encounter Summary ---
:1990 Author Organization [facility] Address [address] [place] [address] Care Team Providers Name Role Phone Unavailable Primary Care Provider Unavailable Encounter Details Date Type Department Care Team Description 06/06/2014 Hospital Encounter HX NO MAPPING Matthew Aponte [...] do you attend pentecostal or Never 2020 evangelical services? Do you belong to any clubs [...]
--- OUTSIDE RECORDS SUMMARY | 2022-07-09 20:43 | XMS_ITS | Encounter Summary ---
:1990 Author Organization [facility] Address [address] [place] [address] Care Team Providers Name Role Phone Unavailable Primary Care Provider Unavailable Encounter Details Date Type Department Care Team Description 05/29/2014 Hospital Encounter HX NO MAPPING Sumeet Hanson M.D. [address] [place], [place] [phone] (Wo rk) Social History [...] do you attend mandaeism or Never 2020 episcopalian services? Do you belong to any clubs [...]
--- OUTSIDE RECORDS SUMMARY | 2022-07-09 20:43 | XMS_ITS | Encounter Summary ---
:1990 Author Organization [facility] Address [address] [place] [address] Care Team Providers Name Role Phone Unavailable Primary Care Provider Unavailable Encounter Details Date Type Department Care Team Description 06/27/2014 Hospital Encounter HX NO MAPPING Matthew Aponte [...] or relatives? How often do you attend adventist or Never 2020 sikh services? Do you belong to any clubs or No 06/25/2021 organizations such as adventist groups, unions, fraternal or athletic groups, or [...]
--- OUTSIDE RECORDS SUMMARY | 2022-07-09 20:43 | XMS_ITS | Encounter Summary ---
:1990 Author Organization [facility] Address [address] [place] [address] Care Team Providers Name Role Phone Unavailable Primary Care Provider Unavailable Encounter Details Date Type Department Care Team Description 04/23/2014 Hospital Encounter HX NO MAPPING Matthew Aponte [...] do you attend hoahaoism or Never 2020 baptist services? Do you [...]
--- OUTSIDE RECORDS SUMMARY | 2022-07-09 20:43 | XMS_ITS | Encounter Summary ---
:1990 Author Organization [facility] Address [address] [place] [address] Care Team Providers Name Role Phone Unavailable Primary Care Provider Unavailable Encounter Details Date Type Department Care Team Description 06/06/2014 Hospital Encounter HX [facility] Todd Dinero [...] you attend oriental orthodox or Never 2020 christianity services? Do you belong to any clubs [...] Sign Reading Time Taken Comments Blood Pressure 122/78 06/06/2014 1:53 PM CDT Pulse - - Temperature - - Respiratory Rate - - Oxygen Saturation - - Inhaled Oxygen Concentration - - Weight 95.1 kg (209 lb 10.5 oz) 06/06/2014 1:53 PM CDT Height 149 cm (4' 10.66) 06/06/2014 1:53 PM CDT Body Mass Index 42.84 06/06/2014 1:53 PM CDT documented in this encounter Progress Notes Todd Aponte M.D. - 06/06/2014 1:44 PM CDT [id number] CHIEF COMPLAINT/REASON FOR VISIT Routine OB visit. HISTORY OF PRESENT ILLNESS This patient is a 23-year-old, G3, P2-0-0-2 female with LMP of 09/20/2013, and an EDC of 06/27/2014 at 37 and 0/7 weeks. Patient presents for OB visit and nonstress test. She has complicated by a prior section x2. Obesity. GERD. Seasonal allergic rhinitis. History of depression. Rubella nonimmune status. labor at 31 weeks during this . The patient was given betamethasone x2 doses on 04/22/2014 and 04/23/2014. The patient was seen on Labor and Delivery last night with right-sided sciatic nerve pain and irregular contractions. Her cervix was unchanged. She was discharged home after IV fluid hydration. She reports that her contractions have decreased. Her sciatic nerve pain on the right has improved. She reports active movement. No leaking of fluid or vaginal bleeding. No pelvic pressure. No headaches or vision changes. No depression symptoms. No difficulty urinating. ALLERGIES No known drug allergies. MEDICATIONS Generic vitamins. PAST MEDICAL/SURGICAL HISTORY PAST MEDICAL HISTORY: 1. Obesity. 2. GERD. 3. Seasonal allergic rhinitis. 4. Depression. 5. History of overdose and suicide attempt. PAST SURGICAL HISTORY: 1. section, 2009. 2. section, 2012. PAST OBSTETRICAL HISTORY: 1. section, 11/26/2009, 37 and 2/7 weeks. 2. section, 06/01/2013, at 39 and 1/7 week. VITAL SIGNS Weight 95.1 kg, height 149 cm, blood pressure 122/78, pulse 66. PHYSICAL EXAMINATION GENERAL: Well-developed, well-nourished gravid female in no apparent distress. Alert and oriented times 3. Normal affect. ABDOMEN: Gravid, soft and nontender. Fundal height is 37 cm. Positive heart tones 144 beats per minute. Vertex presentation by Katie. Well-healed Pfannenstiel skin incision. EXTREMITIES: No edema or tenderness. GENITALIA: Cervix is 1 cm dilated, external os 3 cm thick, 0 station. Cephalic presentation confirmed. DIAGNOSTICS Labs: 06/06/2014: GBS culture obtained. Results are pending. Labs: 05/30/2014: Urine culture negative. PROCEDURE On 06/06/2014, a nonstress test is performed. Please see separate report for details. IMPRESSION/REPORT/PLAN 1. Intrauterine at 37 and 0/7 weeks. Positive cardiac activity. 2. History of two prior sections. 3. Rubella nonimmune status. 4. History of labor at 31 weeks this gestation. The patient was given pain medicines, betamethasone x2 doses on 04/22/2014 and 04/23/2014. 5. Obesity. 6. History of depression, currently stable off medication. 7. Sciatic nerve pain, improved. PLAN: 1. I reviewed nonstress test results with the patient showing reassuring assessment. heart tones are in the 150s with good variability. She had 2 contractions on a 30 minute strip. She has no cervical change from prior examination. 2. I reviewed the urine culture results from last week, which are negative. Her dysuria and difficulty with urination have resolved. 3. GBS culture obtained today per protocol. 4. I encouraged fluids and hydration. 5. I would like the patient to follow upin 1 week for OB visit or be seen sooner as needed. 6. Routine OB precautions, recommendations, instructions are reviewed with patient including movement and kick counts. 7. labor precautions are reviewed with patient. 8. Patient is scheduled for elective repeat section at 39 and 0/7 weeks on 06/20/2014 at [facility]. 9. I spent 30 minutes [id number] time with patient with over 50% of that time spent in counseling. Todd Aponte M.D./ruiz Electronically Signed By: TODD APONTE MD On: 06/08/2014 09:32 AM Source: [facility] [email or web address] Document Id: [id number] documented in this encounter Procedure Notes Todd Aponte M.D. - 06/06/2014 12:00 AM CDT 2RPT DIAGNOSIS 1. A 23-year-old G3, P2-0-0-2 female at 37 and 0/7 weeks. 2. History of 2 prior sections. 3. labor this . 4. Obesity. INDICATION FOR TEST 1. Intrauterine at 37 and 0/7 weeks. 2. Uterine contractions. INTERPRETATION Reactive, reassuring assessment. HEART RATE BASELINE 140s with good variability and positive accelerations up to 162 beats per minute. No decelerations. PERIODIC CHANGES Periodic changes are present. CONTRACTIONS Two contractions on a 30-minute strip. RECOMMENDED FOLLOWUP One week as scheduled. I performed and interpreted the results of this testing. Todd Aponte M.D./ruiz Electronically Signed By: TODD APONTE MD On: 06/06/2014 04:29 PM Source: [facility] MHSDOLBEYNONRADSYS Document Id: [id number] documented in this encounter Miscellaneous Notes Miscellaneous - Todd Aponte M.D. - 06/06/2014 2:19 PM CDT Ambulatory Patient Summary [facility] [address] [place] [address] [id number] Visit Information Name: BARBRA GIMENEZ [facility] Number: [id number] Current Date: 06/06/2014 14:19:14 Physicians Attending Provider: TODD APONTE MD Primary [...] the Following Medications: Medication list as of 06-06-14 14:19 Attention: If you have any medications at home that are not on this list, DO NOT take them until youcontact your provider for clarification. Give a copy of your medication list to your primary care provider. Update your medication list any time medications or doses are changed and carry your medication list at all times in case of emergency. Electronically Signed By: OTDD APONTE MD Signed On:06-JUN-2014 14:19:10 Your Allergies & Intolerances Substance Reaction Symptoms Category Comments Cats Other has allergy to cats Your Problem List Problem Status Onset Comments Family History of Diabetes Mellitus Active Mild Hyperemesis Gravidarum, Antepartum Condition or Complication Active 10/26/2012 Previous delivery, antepartum Active 10/27/2013 Labor >22 Active Your Upcoming Appointments Date Time Location Provider 06/13/2014 14:30 [facility] OVERSEAMER Todd Aponte MD Attention: Contact your local Clinic if further appointment detail needed. Your Goals/Additional instructions: Source: [facility] POWERCHART Document Id: [id number] Miscellaneous - Todd Aponte M.D. - 06/06/2014 2:19 PM CDT Ambulatory Discharge Medication List [address] [id number] Visit Information Name: BARBRA GIMENEZ MUKESH [facility] Number: [id number] Visit Date: 06/06/2014 14:19:13 Attending Provider: TODD APONTE MD Primary Care [...] the Following Medications: Medication list as of 06-06-14 14:19 Attention: If you have any medications at [...] Electronically Signed By: TODD APONTE MD Signed On:06-JUN-2014 14:19:10 Additional Information: [email or web address] Document Id: [id number] Miscellaneous - Nori Hong L.P.N. - 06/06/2014 1:53 PM CDT Adult Door Serviceman Intake/History Adult Door Serviceman Intake/History Entered On: 06/06/2014 13:53 CDT Performed On: 06/06/2014 13:53 CDT by NORI HONG Intake Chief Complaint : OB visit NST 37 weeks Systolic Blood Pressure : 122 mmHg Diastolic Blood Pressure : 78 mmHg NIBP Mean : 93 mmHg BP Location : Left upper extremity Blood Pressure Cuff Size : Regular Height : 149 cm(Converted to: 4 ft 11 inch(es), 59 inch(es)) Actual Weight : 95.1 kg(Converted to: 209 lb 11 oz) Weight Source : Standing scale Dosing Weight Clinic : 95.1 kg Clinic BSA : 1.98 Body Mass Index : 42.84 kg/m2 NORI HONG - 06/06/2014 13:53 CDT General Info Languages : Chadian Is Patient Female and 13-50 no hysterectomy : Yes Status : Confirmed positive Are you ? : No NORI HONG - 06/06/2014 13:53 CDT Subjective Pain Symptoms : No NORI HOGN - 06/06/2014 13:53 CDT Dependent Habits Tobacco Use/Currently Using : No Exposure to Tobacco Smoke : Lives with someone who smokes, Other: none Smoking Status : Never smoker NORI HONG - 06/06/2014 13:53 CDT Caffeine Use Grid Caffeine Use : Current Type : Coffee Frequency : Daily NORI HONG - 06/06/2014 13:53 CDT Source: [email or web address] Document Id: [id number] CDT!30 documented in this encounter Plan of Treatment Not on filedocumented as of this encounter Procedures Procedure Name Priority Date/Time Associated Diagnosis Comme nts HXSTREP GROUP B BY Routine 06/06/2014 2:05 PM Res ults for this PCR CDT procedure are i n the results section. documented in this encounter Results HXSTREP GROUP B BY PCR (06/06/2014 2:05 PM CDT) [facility] gist Method Time Signature HXStrep Group POWERCHART B by PCR HXFinal Negative for POWERCHART Group B Strep by PCR. Specimen (Source) Anatomical Collection Method Collection Time Re ceived Time Location / / Volume Laterality Vaginal/Rectum 06/06/2014 2:05 PM CDT Todd Aponte M.D. LAB HISTORICAL ORDERS Performing Organization Address City/State/ZIP Code Phon e Number POWERCHART documented in this encounter Visit Diagnoses Not on filedocumented in this encounter Additional Health Concerns Assessment Noted Time PHQ-9 Depression Total Score: 1 11/16/2012 11:45 AM CS T documented as of this encounter
--- OUTSIDE RECORDS SUMMARY | 2022-07-09 20:43 | XMS_ITS | Encounter Summary ---
:1990 Author Organization [facility] Address [address] [place] [address] Care Team Providers Name Role Phone Unavailable Primary Care Provider Unavailable Encounter Details Date Type Department Care Team Description 05/29/2014 Hospital Encounter HX NO MAPPING Sumeet Hanson M.D. [address] [place], [place] [phone] (Wo rk) [...] do you attend religious or Never 2020 hoahaoism services? Do you [...]
--- OUTSIDE RECORDS SUMMARY | 2022-07-09 20:43 | XMS_ITS | Encounter Summary ---
:1990 Author Organization [facility] Address [address] [place] [address] Care Team Providers Name Role Phone Unavailable Primary Care Provider Unavailable Encounter Details Date Type Department Care Team Description 06/05/2014 Hospital Encounter HX NO MAPPING Mathtew Aponte M.D. Social History Tobacco Use Types [...] do you attend hindu or Never 2020 restorationism services? Do you [...]
--- OUTSIDE RECORDS SUMMARY | 2022-07-09 20:43 | XMS_ITS | Encounter Summary ---
:1990 Author Organization [facility] Address [address] [place] [address] Care Team Providers Name Role Phone Unavailable Primary Care Provider Unavailable Encounter Details Date Type Department Care Team Description 05/30/2014 Hospital Encounter HX NO MAPPING Matthew Apotne M.D. Social History Tobacco Use Types Packs/Day [...] or relatives? How often do you attend confucianism or Never 2020 mu-ism services? Do you belong to any clubs or No 06/25/2021 organizations such as confucianism groups, unions, fraternal or athletic groups, or [...]
--- OUTSIDE RECORDS SUMMARY | 2022-07-09 20:43 | XMS_ITS | Encounter Summary ---
:1990 Author Organization [facility] Address [address] [place] [address] Care Team Providers Name Role Phone Unavailable Primary Care Provider Unavailable Encounter Details Date Type Department Care Team Description 05/03/2014 Hospital Encounter HX [facility] Todd Dinero [...] do you attend druze or Never 2020 gnosticism services? Do you [...] Reading Time Taken Comments Blood Pressure 110/64 05/03/2014 2:20 PM CDT Pulse - - Temperature - - Respiratory Rate - - Oxygen Saturation - - Inhaled Oxygen Concentration - - Weight 94 kg (207 lb 3.7 oz) 05/03/2014 2:20 PM CDT Height 149 cm (4' 10.66) 05/03/2014 2:20 PM CDT Body Mass Index 42.34 05/03/2014 2:20 PM CDT documented in this encounter Progress Notes Todd Aponte M.D. - 05/03/2014 2:15 PM CDT [id number] CHIEF COMPLAINT/REASON FOR VISIT Routine OB visit. HISTORY OF PRESENT ILLNESS This patient is a 23-year-old, G3, P 2-0-0-2 female with LMP of 09/20/2013 and EDC of 06/27/2014 at 32 and 1/7 weeks. She has complicated by history of prior section x2. Obesity. GERD. Seasonal allergic rhinitis. History of depression. Rubella nonimmune status. labor at 31 weeks. Patient given betamethasone x2 doses on 04/22 and 04/23/2014. The patient presents for followup. She is doing well. She continues to have some irregular uterine contractions when she is active, and this resolves when she rests. No current contractions. No pelvic pressure. No leaking of fluid or vaginal bleeding. No headaches or vision changes. No depression symptoms. She reports active movement. No difficulty urinating. No change in bowel habits. No vaginal itching or irritation. ALLERGIES No known drug allergies. MEDICATIONS Generic vitamins. PAST MEDICAL/SURGICAL HISTORY 1. Obesity. 2. GERD. 3. Seasonal allergic rhinitis. 4. Depression. 5. History of overdose and suicide attempt. PAST SURGICAL HISTORY: 1. section, 2009. 2. section, 2012. PAST OBSTETRICAL HISTORY: 1. section, 11/26/2009. 2. section, 06/01/2013. PHYSICAL EXAMINATION VITAL SIGNS: Weight 94.0 kg, height 149 cm. Blood pressure 110/64, pulse 70. GENERAL: Well-developed, well-nourished, obese gravid female in no apparent distress. Alert and oriented times 3. Normal affect. ABDOMEN: Obese. Gravid, soft and nontender. Fundal height is 32 cm. Positive heart tones, 144 beats per minute. Vertex presentation by Katie. Well- healed Pfannenstiel skin incision. EXTREMITIES: No edema or tenderness. PELVIC: Cervix: External cervical os is 1 cm dilated. Internal cervical os is fingertip dilated. Cervix is 3 cm, thick, 0 station. Cephalic presentation confirmed. PROCEDURE Nonstress test is performed. Please see separate report for details. IMPRESSION/REPORT/PLAN 1. Intrauterine at 32 and 1/7 weeks. Positive cardiac activity. 2. History of 2 prior sections. 3. Rubella nonimmune status. 4. labor at 31 weeks, given betamethasone x2 doses on 04/22 and 04/23. 5. Obesity. 6. History of depression, currently stable. Off medication. PLAN: 1. Reassurance given to the patient. The patient's nonstress test is reactive and reassuring. No evidence of contractions. She has no cervical change. The patient has already received betamethasone x2 doses. 2. labor precautions reviewed with the patient. 3. I would like the patient to continue to be at home bed rest and avoid strenuous activity. I encouraged fluids and hydration. 4. Routine OB precautions, recommendations, instructions to patient including movement and kick counts. 5. I recommend elective repeat section at term. 6. I spent 30 minutes [id number] time with patient with over 50% of the time spent in counseling. Todd Aponte M.D./ruiz Electronically Signed By: TODD APONTE MD On: 05/04/2014 08:48 AM Source: [facility] MHSDOLBEYNONRADSYS Document Id: [id number] documented in this encounter Procedure Notes Todd Aponte M.D. - 05/03/2014 12:00 AM CDT 2RPT DIAGNOSIS 1. A 23-year-old -0-0-2 female at 32 and 1/7 weeks. 2. History of 2 prior sections. 3. labor. 4. Obesity. INDICATION FOR TEST 1. Intrauterine at 32 and 1/7 weeks. 2. labor. INTERPRETATION Reactive and reassuring. HEART RATE BASELINE 140s with good variability and positive accelerations up to 154 beats per minute. No decelerations. PERIODIC CHANGES Present. CONTRACTIONS No contractions present. RECOMMENDED FOLLOWUP One week as scheduled. I performed and interpreted the results of this testing. Todd Aponte M.D./ruiz Electronically Signed By: TODD APONTE MD On: 05/04/2014 08:48 AM Source: [facility] MHSDOLBEYNONRADSYS Document Id: [id number] documented in this encounter Miscellaneous Notes Miscellaneous - Todd Aponte M.D. - 05/03/2014 3:09 PM CDT Ambulatory Patient Summary [address] [id number] Visit Information Name: AMMYHIMANSHUBARBRAJOSEY MAYORGA [facility] Number: [id number] Current Date: 05/03/2014 15:09:10 Physicians Attending Provider: TODD APONTE MD Primary [...] the Following Medications: Medication list as of 05-03-14 15:09 Attention: If you have any medications at [...] Electronically Signed By: TODD APONTE MD Signed On:03-MAY-2014 15:09:07 Your Allergies & Intolerances Substance Reaction Symptoms Category Comments Cats Other has allergy to cats Your Problem List Problem Status Onset Comments Family History of Diabetes Mellitus Active Mild Hyperemesis Gravidarum, Antepartum Condition or Complication Active 10/26/2012 Previous delivery, antepartum Active 10/27/2013 Labor >22 Active Your Upcoming Appointments Date Time Location Reason Provider 05/11/2014 10:00 [facility] 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 Your Goals/Additional instructions: Source: [facility] POWERCHART Document Id: [id number] ND Schwab - Todd Aponte M.D. - 05/03/2014 3:09 PM CDT Ambulatory Discharge Medication List [address] [id number] Visit Information Name: BARBRA GIMENEZ [facility] Number: [id number] Visit Date: 05/03/2014 15:09:09 Attending Provider: TODD APONTE MD Primary Care [...] the Following Medications: Medication list as of 05-03-14 15:09 Attention: If you have any medications at [...] Electronically Signed By: TODD APONTE MD Signed On:03-MAY-2014 15:09:07 Additional Information: Source: [facility] EntertainmentCHART Document Id: [id number] Aysha Nugent R.N. - 05/03/2014 2:20 PM CDT Adult Surgical Asst Intake/History Adult Surgical Asst Intake/History Entered On: 05/03/2014 14:21 CDT Performed On: 05/03/2014 14:20 CDT by AYSHA MOYA Intake Chief Complaint : OB visit 32 1/7 weeks Systolic Blood Pressure : 110 mmHg Diastolic Blood Pressure : 64 mmHg NIBP Mean : 79 mmHg BP Location : Left upper extremity Blood Pressure Cuff Size : Regular Height : 149 cm(Converted to: 4 ft 11 inch(es), 59 inch(es)) Actual Weight : 94.0 kg(Converted to: 207 lb 4 oz) Dosing Weight Clinic : 94 kg Clinic BSA : 1.97 Body Mass Index : 42.34 kg/m2 AYSHA MOYA - 05/03/2014 14:20 CDT General Info Languages : Portuguese Is Patient Female and 13-50 no hysterectomy : Yes Status : Confirmed positive Are you ? : No AYSHA MOYA - 05/03/2014 14:20 CDT Subjective Pain Symptoms : No AYSHA MOYA - 05/03/2014 14:20 CDT Dependent Habits Tobacco Use/Currently Using : No Exposure to Tobacco Smoke : Lives with someone who smokes, Other: none Smoking Status : Unknown if ever smoke AYSHA MOYA - 05/03/2014 14:20 CDT Caffeine Use Grid Caffeine Use : Current Type : Coffee Frequency : Daily AYSHA MOYA - 05/03/2014 14:20 CDT Source: [employer] Document Id: [id number] CDT!29 documented in this encounter Plan of Treatment Not on filedocumented as of this encounter Visit Diagnoses Not on filedocumented in this encounter Additional Health Concerns Assessment Noted Time PHQ-9 Depression Total Score: 1 11/16/2012 11:45 AM CS T documented as of this encounter
--- OUTSIDE RECORDS SUMMARY | 2022-07-09 20:43 | XMS_ITS | Encounter Summary ---
:1990 Author Organization [facility] Address [address] [place] [address] Care Team Providers Name Role Phone Unavailable Primary Care Provider Unavailable Encounter Details Date Type Department Care Team Description 06/13/2014 Hospital Encounter HX [facility] Todd Dinero [...] do you attend mormon or Never 2020 latter-day services? Do you belong to any clubs [...] Sign Reading Time Taken Comments Blood Pressure 134/70 06/13/2014 2:49 PM CDT Pulse - - Temperature - - Respiratory Rate - - Oxygen Saturation - - Inhaled Oxygen Concentration - - Weight 95.7 kg (210 lb 15.7 oz) 06/13/2014 2:49 PM CDT Height 149 cm (4' 10.66) 06/13/2014 2:49 PM CDT Body Mass Index 43.11 06/13/2014 2:49 PM CDT documented in this encounter Progress Notes Todd Aponte M.D. - 06/13/2014 2:41 PM CDT [id number] CHIEF COMPLAINT/REASON FOR VISIT Preop history and physical examination for planned section. HISTORY OF PRESENT ILLNESS This patient is a 23-year-old G3, P2-0-0-2 female with LMP of 09/20/2013 and EDC of 06/27/2014 at 38and 0/7 weeks. Patient presents for OB visit for preop history and physical examination. She has a complicated by prior section x2, obesity, GERD, seasonal allergic rhinitis, history depression, rubella nonimmune status, labor at 31 weeks during this . Patient is given betamethasone x2 doses on 04/22/2014 and 04/23/2014. The patient is doing well. She reports active movement. She denies leaking of fluid or vaginalbleeding. She does have irregular uterine contractions that continue when she is active. These symptoms have improved now that she has decreased her work and is getting more rest. She also complains ofpelvic pressure when she is standing on her feet and especially when she is standing at work. No current pelvic pressure. No headaches or vision changes. No depression symptoms. No fevers or chills. Nodifficulty urinating. ALLERGIES No known drug allergies. MEDICATIONS Generic vitamins. SYSTEMS REVIEW As per HPI; otherwise negative. PAST MEDICAL/SURGICAL HISTORY PAST MEDICAL HISTORY: 1. Obesity. 2. GERD. 3. Seasonal allergic rhinitis. 4. Depression. 5. History of overdose and suicide attempt. PAST SURGICAL HISTORY: 1. section 2009. 2. section 2012. PAST OBSTETRICAL HISTORY: 1. section 11/26/2009 at 37 and 2/7 weeks, male , 6 pounds 10 ounces. 2. section 06/01/2013 at 39 and 1/7 week, male , 6 pounds 4 ounces. SOCIAL HISTORY The patient is single. She denies tobacco, alcohol, or drug use. She was treated for chlamydia in 2012. No history of cervical dysplasia. No history of abuse. FAMILY HISTORY Mother, father and maternal grandfather with diabetes. No hypertension or coronary artery disease. No cancer. No congenital anomalies. VITAL SIGNS Weight 95.7 kg, height 149 cm blood pressure 134/70, temperature 36.8, respiration 20. PHYSICAL EXAMINATION GENERAL: Well-developed, well-nourished gravid female in no apparent distress. Alert and oriented x3. Normal affect. LUNGS: Clear to auscultation bilaterally. HEART: Regular rate and rhythm without murmur. ABDOMEN: Gravid, soft, obese, nontender. Positive bowel sounds. Fundal height 38 cm. Positive heart tones 138 beats per minute. Vertex presentation by Leopolds. Well-healed Pfannenstiel skin incision. EXTREMITIES: No clubbing, cyanosis, or edema. Nontender bilaterally. GENITAL: Cervix is 1 cm dilated. External os is 3 cm thick, 0 station. Cephalic presentation confirmed. No change from prior examination. DIAGNOSTICS 06/06/2014 GBS culture negative. PROCEDURE 06/06/2014 nonstress test is performed. Please see separate report for details. IMPRESSION/REPORT/PLAN 1. Intrauterine at 38 and 0/7 weeks. Positive cardiac activity. 2. History of 2 prior sections. 3. Rubella nonimmune status. 4. History of labor at 31 weeks this gestation. The patient is given betamethasone x2 doses on 04/22/2014 and 04/23/2014. 5. Obesity. 6. History of depression, currently stable off medication. 7. Sciatic nerve pain, improved PLAN: 1. labs are blood type O positive, antibody screen negative, platelets 267, hemoglobin 11.1, rubella nonimmune, serology negative,chlamydia negative, hepatitis B surface antigen negative, HIV negative, TSH 0.6, Pap smear negative for intraepithelial lesion or malignancy, diabetic screen 147, 3 hour GTT is 72, 130, 131, 98, normal. Urine culture negative, group B strep culture negative. 2. The patient is scheduled for elective repeat section at [facility] on 06/20/2014 at 39 and 0/7 weeks. 3. I reviewed the risks, benefits, alternatives, and indication of repeat section with patient. I discussed risk of infection, bleeding, need for blood transfusion, injury to organs and need for repair, need for hysterectomy, risk of injury to fetus, anesthesia risk, DVT risk, cardiovascular risk, unexpected findings, need for further ,sections and rarely . Patient verbalizes understanding, desires to proceed. Surgical consent form is given to the patient and signed. 4. Routine obstetric precautions, recommendations, instructions are reviewed including movement and kick counts. 5. Labor precautions are reviewed with the patient. 6. The patient be nothing by mouth for at least 8 hours prior to surgery. 7. All of the patient's questions are answered. 8. I spent over 30 minutes [id number] time with patient with over 50% of that time spent in counseling. Todd Aponte M.D./ruiz Electronically Signed By: TODD APONTE MD On: 06/15/2014 08:32 AM Source: [facility] [employer] Document Id: [id number] documented in this encounter Procedure Notes Todd Aponte M.D. - 06/13/2014 12:00 AM CDT 2RPT DIAGNOSIS 1. A 23-year-old G3, P2-0-0-2 female at 38 and 0/7 weeks. 2. History of 2 prior sections. 3. labor this . 4. Obesity. INDICATION FOR TEST 1. Intrauterine at 38 and 0/7 weeks. 2. Irregular uterine contractions. INTERPRETATION Reactive and reassuring assessment. HEART RATE BASELINE 130s with good variability and positive accelerations up to 158 beats per minute. No decelerations. Good variability. PERIODIC CHANGES Present. CONTRACTIONS One contraction on a 35-minute strip. RECOMMENDED FOLLOWUP One week as scheduled. I performed and interpreted the results of this testing. Todd Aponte M.D./ruiz Electronically Signed By: TODD APONTE MD On: 06/13/2014 04:14 PM Source: [facility] [employer] Document Id: [id number] documented in this encounter Miscellaneous Notes Miscellaneous - Todd Aponte M.D. - 06/13/2014 3:19 PM CDT Ambulatory Patient Summary [address] [id number] Visit Information Name: BARBRA GIMENEZ [facility] Number: [id number] Current Date: 06/13/2014 15:19:26 Physicians Attending Provider: TODD APONTE MD Primary [...] the Following Medications: Medication list as of 06-13-14 15:19 Attention: If you have any medications at [...] Electronically Signed By: TODD APONTE MD Signed On:13-JUN-2014 15:19:23 Your Allergies & Intolerances Substance Reaction Symptoms Category Comments Cats Other has allergy to cats Your Problem List Problem Status Onset Comments Family History of Diabetes Mellitus Active Mild Hyperemesis Gravidarum, Antepartum Condition or Complication Active 10/26/2012 Previous delivery, antepartum Active 10/27/2013 Labor >22 Active Your Upcoming Appointments Date Time Location Provider 06/18/2014 14:30 [facility] COMPLIANCE DIRECTOR Todd Aponte MD Attention: Contact your local Clinic if further appointment detail needed. Your Goals/Additional instructions: Source: [facility] POWERCHART Document Id: [id number] Miscellaneous - Todd Aponte M.D. - 06/13/2014 3:19 PM CDT Ambulatory Discharge Medication List [address] [place] [id number] Visit Information Name: BARBRA GIMENEZ [facility] Number: [id number] Visit Date: 06/13/2014 15:19:25 Attending Provider: TODD APONTE MD Primary Care [...] the Following Medications: Medication list as of 06-13-14 15:19 Attention: If you have any medications at [...] Electronically Signed By: TODD APONTE MD Signed On:13-JUN-2014 15:19:23 Additional Information: Source: [facility] POWERCHART Document Id: [id number] Miscellaneous - Todd Aponte M.D. - 06/13/2014 2:59 PM CDT Work Excuse 13 June 2014 BARBRA GIMENEZ [address] [place] [address] [address] [facility] [address] Dear BARBRA GIMENEZ, You were examined in my office on: 06/13/2014 14:56 Reason for work excuse: Medical Illness ( x ) Yes ( _ ) No Injury ( _ ) Yes ( x ) No Is excused from all work: ( x ) Yes ( _ ) No Has work limitations: ( _ ) Yes ( x ) No As follows: _ Limitations apply until: _ Follow-Up Appointment : ( _ ) Return to Work date: 08/06/2014 Notes: This patient is with an EDC of 06/27/2014. She is off work on FMLA leave starting on 06/12/2014 due to reasons. She is scheudled for a section delivery on 06/20/2014. I expect her to return to work on 08/06/2014. Sincerely, TODD APONTE [address] [place] [id number] Electronic Signature Electronically Signed By: TODD APONTE MD On: 13 June 2014 This document has images extracted. Source: [facility] POWERCHART Document Id: [id number] Miscellaneous - Kylee Crespo, L.P.N. - 06/13/2014 2:49 PM CDT Adult Client Engagement Manager Intake/History Adult Client Engagement Manager Intake/History Entered On: 06/13/2014 14:50 CDT Performed On: 06/13/2014 14:49 CDT by KYLEE CRESPO LPN Intake Chief Complaint : Ob visit 38 weeks LMP Date : 09/20/13 Systolic Blood Pressure : 134 mmHg Diastolic Blood Pressure : 70 mmHg NIBP Mean : 91 mmHg BP Location : Left upper extremity Blood Pressure Cuff Size : Regular Height : 149 cm(Converted to: 4 ft 11 inch(es), 59 inch(es)) Actual Weight : 95.7 kg(Converted to: 211 lb 0 oz) Weight Source : Standing scale Dosing Weight Clinic : 95.7 kg Clinic BSA : 1.99 Body Mass Index : 43.11 kg/m2 KYLEE CRESPO LPN - 06/13/2014 14:49 CDT General Info Information Given By : Patient Languages : Georgian Is Patient Female and 13-50 no hysterectomy : Yes Status : Confirmed positive Are you ? : No KYLEE CRESPO LPN - 06/13/2014 14:49 CDT Subjective Pain Symptoms : No KYLEE CRESPO LPN - 06/13/2014 14:49 CDT Dependent Habits Tobacco Use/Currently Using : No Exposure to Tobacco Smoke : Lives with someone who smokes, Other: none Smoking Status : Never smoker KYLEE CRESPO LPN - 06/13/2014 14:49 CDT Caffeine Use Grid Caffeine Use : Current Type : Coffee Frequency : Daily KYLEE CRESPO LPN - 06/13/2014 14:49 CDT Source: [employer] Document Id: [id number] CDT!32 documented in this encounter Plan of Treatment Not on filedocumented as of this encounter Visit Diagnoses Not on filedocumented in this encounter Additional Health Concerns Assessment Noted Time PHQ-9 Depression Total Score: 1 11/16/2012 11:45 AM CS T documented as of this encounter
--- OUTSIDE RECORDS SUMMARY | 2022-07-09 20:43 | XMS_ITS | Encounter Summary ---
:1990 Author Organization [facility] Address [address] [place] [address] Care Team Providers Name Role Phone Unavailable Primary Care Provider Unavailable Encounter Details Date Type Department Care Team Description 06/23/2014 Hospital Encounter HX NO MAPPING Katie Patel [address] [place] [address] (Wo rk) Social History Tobacco [...] do you attend sabianist or Never 2020 restorationism services? Do you [...]
--- OUTSIDE RECORDS SUMMARY | 2022-07-09 20:43 | XMS_ITS | Encounter Summary ---
:1990 Author Organization [facility] Address [address] [place] [address] Care Team Providers Name Role Phone Unavailable Primary Care Provider Unavailable Encounter Details Date Type Department Care Team Description 06/20/2014 Hospital Encounter HX NO MAPPING Matthew Aponte [...] do you attend yazdanism or Never 2020 christianity services? Do you [...]
--- OUTSIDE RECORDS SUMMARY | 2022-07-09 20:43 | XMS_ITS | Encounter Summary ---
:1990 Author Organization [facility] Address [address] [place] [address] Care Team Providers Name Role Phone Unavailable Primary Care Provider Unavailable Encounter Details Date Type Department Care Team Description 04/03/2014 Hospital Encounter HX [facility] Andre Felder Jr., M.D. [address] [place], [place] [phone] (Wo rk) Social History [...] do you attend episcopal or Never 2020 anabaptist services? Do you [...] Sign Reading Time Taken Comments Blood Pressure 110/60 04/03/2014 3:06 PM CDT Pulse - - Temperature - - Respiratory Rate - - Oxygen Saturation - - Inhaled Oxygen Concentration - - Weight 92.1 kg (203 lb 0.7 oz) 04/03/2014 3:06 PM CDT Height 149 cm (4' 10.66) 04/03/2014 3:06 PM CDT Body Mass Index 41.49 04/03/2014 3:06 PM CDT documented in this encounter Progress Notes Andre Zabala Jr., M.D. - 04/03/2014 2:58 PM CDT [id number] CHIEF COMPLAINT/REASON FOR VISIT Contractions, back pain, nausea, left foot pain, and increased vaginal discharge during . HISTORY OF PRESENT ILLNESS Barbra is a 23-year-old 3, para 2-0-0-2 female at 27-6/7 weeks gestation by LMP of 09/20/2013 who presents to the clinic for contractions, back pain, nausea, left foot pain, and increased vaginal discharge during . Her EDC is 06/27/2014, and Dr. Aponte is her regular OB provider. Barbra states that she has been having increased pressure and contractions recently. Contractions are 10 minutes apart but are not becoming more frequent and are not becoming more painful. Additionally, she is experiencing lower back pain, nausea, and increased vaginal discharge. She has not been vomiting. Positive movement. She also states that she is having some left foot pain. MEDICATIONS vitamins. ALLERGIES No known drug allergies SYSTEMS REVIEW Remarkable for abdominal cramping and mild contractions, back pain, nausea, left foot pain, and increased vaginal discharge without odor or vaginal itching or irritation. Otherwise all systems are reviewed and are negative. PAST MEDICAL/SURGICAL HISTORY No significant chronic health issues. PAST SURGICAL HISTORY: section x2. PAST OBSTETRICAL HISTORY: section 11/26/2009. section 06/01/2013. VITAL SIGNS WEIGHT: 92.1 kg. BLOOD PRESSURE: 110/60. PHYSICAL EXAMINATION GENERAL: Patient appears well groomed and well nourished. No acute distress. Oriented times three. ABDOMEN: Soft and nontender. Fundal height is 28 cm. heart tones are 149 bpm. PELVIS: Vaginal discharge appears normal. Cervix is closed and long. Fetus is vertex. EXTREMITIES: Lower extremities are nontender, no edema. BACK: No CVA tenderness. DIAGNOSTIC: UCx is done today. IMPRESSION/REPORT/PLAN [age] year old 3, para 2-0-0-2 female at 27-6/7 weeks gestation. EDC 06/27/2014. PLAN: 1. care: Patient will continue with routine care is discussed with Dr. Aponte. Patient has not had 1-hr GCT, and Glucola is given today. She will complete 1-hr GCT tomorrow at a followup appointment with Dr. Aponte. 2. Vaginal discharge: This appears normal, and is likely secondary to . 3. Contractions: Patient is experiencing intermittent contractions, but these are stable overall. Patient is encouraged to increase fluid intake and to rest regularly when she experiences contractions.Cervix is closed and long during exam. She will contact the clinic if her contractions worsen. 4. Back pain: Patient has no CVA tenderness during exam today. UCx is done today to rule out urinarytract infection, and patient will be contacted with results. 5. Left foot pain: This is likely secondary to muscle cramping and tension. Patient does work on herfeet frequently which could be worsening her pain. Stretches are demonstrated in the clinic today. If her pain does not improve, she will follow up with Dr. Aponte for further evaluation. 6. Follow up: Patient will return to the clinic tomorrow for 1-hr GCT and routine OB check with Dr. Aponte. This document serves as a record of services personally performed by Andre Zabala MD. It was created on their behalf by Diamond Bhatt, a trained director of medical education. The creation of this record is based on the scribe's personal observations and the provider's statements to them. This document has been ch ecked and approved by the attending provider. Andre Zabala M.D./indira Electronically Signed By: ANDRE ZABALA MD On: 04/03/2014 05:15 PM Source: [facility] [employer] Document Id: [id number] documented in this encounter Miscellaneous Notes Miscellaneous - Andre Zabala Jr., M.D. - 04/03/2014 3:15 PM CDT Ambulatory Patient Summary [address] [place] [id number] Visit Information Name: BARBRA GIMENEZ [facility] Number: [id number] Current Date: 04/03/2014 15:15:53 Physicians Attending Provider: ANDRE ZABALA MD Primary Care Provider: TODD APONTE MD [...] the Following Medications: Medication list as of 04-03-14 15:15 Attention: If you have any medications at home that are not on this list, DO NOT take them until youcontact your provider for clarification. Give a copy of your medication list to your primary care provider. Update your medication list any time medications or doses are changed and carry your medication list at all times in case of emergency. Electronically Signed By: ANDRE ZABALA MD Signed On:03-APR-2014 15:15:50 Your Allergies & Intolerances Substance Reaction Symptoms Category Comments Cats Other has allergy to cats Your Problem List Problem Status Onset Comments Family History of Diabetes Mellitus Active Mild Hyperemesis Gravidarum, Antepartum Condition or Complication Active 10/26/2012 Previous delivery, antepartum Active 10/27/2013 Your Upcoming Appointments Date Time Location Reason Provider No Appointments found Attention: Contact your local Clinic if further appointment detail needed. Your Goals/Additional instructions: Source: [facility] POWERCHART Document Id: [id number] Miscellaneous - Andre Zabala Jr., M.D. - 04/03/2014 3:15 PM CDT Ambulatory Discharge Medication List [address] [id number] Visit Information Name: BARBRA GIMENEZ [facility] Number: [id number] Visit Date: 04/03/2014 15:15:52 Attending Provider: ANDRE ZABALA MD Primary Care Provider: TODD APONTE MD [...] the Following Medications: Medication list as of 04-03-14 15:15 Attention: If you have any medications at home that are not on this list, DO NOT take them until youcontact your provider for clarification. Give a copy of your medication list to your primary care provider. Update your medication list any time medications or doses are changed and carry your medication list at all times in case of emergency. Electronically Signed By: ANDRE ZABALA MD Signed On:03-APR-2014 15:15:50 Additional Information: Source: [facility] POWERCHART Document Id: [id number] Miscellaneous - Aysha Coffman, R.N. - 04/03/2014 3:06 PM CDT Adult Malter Operator Intake/History Adult Malter Operator Intake/History Entered On: 04/03/2014 15:08 CDT Performed On: 04/03/2014 15:06 CDT by AYSHA MOYA Intake Chief Complaint : OB visit 27 6/7 weeks Systolic Blood Pressure : 110 mmHg Diastolic Blood Pressure : 60 mmHg NIBP Mean : 77 mmHg BP Location : Left upper extremity Blood Pressure Cuff Size : Regular Height : 149 cm(Converted to: 4 ft 11 inch(es), 59 inch(es)) Actual Weight : 92.1 kg(Converted to: 203 lb 1 oz) Dosing Weight Clinic : 92.1 kg Clinic BSA : 1.95 Body Mass Index : 41.48 kg/m2 AYSHA MOYA - 04/03/2014 15:06 CDT General Info Languages : Swedish AYSHA MOYA - 04/03/2014 15:06 CDT Subjective Pain Symptoms : No AYSHA MOYA - 04/03/2014 15:06 CDT Dependent Habits Tobacco Use/Currently Using : No Exposure to Tobacco Smoke : Lives with someone who smokes, Other: none Smoking Status : Never smoker AYSHA MOYA - 04/03/2014 15:06 CDT Caffeine Use Grid Caffeine Use : Current Type : Coffee Frequency : Daily AYSHA MOYA - 04/03/2014 15:06 CDT Source: [facility] POWERCHART Document Id: [id number] CDT!26 documented in this encounter Plan of Treatment Not on filedocumented as of this encounter Procedures Procedure Name Priority Date/Time Associated Diagnosis Comme nts BACTERIAL CULTURE, Routine 04/03/2014 4:44 PM Res ults for this AEROBIC, URINE CDT procedure are in the results section. documented in this encounter Results Bacterial Culture, Aerobic, Urine (04/03/2014 4:44 PM CDT) [facility] Method Time Signature Bacterial POWERCHART Culture, Aerobic, Urine HXPre No growth POWERCHART HXFinal Mixed say. No POWERCHART further studies unless notified. HXFinal [place] POWERCHART Microbiology laboratory [phone] Specimen (Source) Anatomical Collection Method Collection Time Re ceived Time Location / / Volume Laterality Urine, Clean 04/03/2014 4:44 PM Catch CDT Andre Zabala Jr., M.D. LAB MICROBIOLOGY - GENERAL O RDERABLES Performing Organization Address City/State/ZIP Code Phon e Number POWERCHART documented in this encounter Visit Diagnoses Not on filedocumented in this encounter Additional Health Concerns Assessment Noted Time PHQ-9 Depression Total Score: 1 11/16/2012 11:45 AM CS T documented as of this encounter
--- OUTSIDE RECORDS SUMMARY | 2022-07-09 20:43 | XMS_ITS | Encounter Summary ---
:1990 Author Organization [facility] Address [address] [place] [address] Care Team Providers Name Role Phone Unavailable Primary Care Provider Unavailable Encounter Details Date Type Department Care Team Description 05/18/2014 Hospital Encounter HX [facility] Todd Dinero [...] Sign Reading Time Taken Comments Blood Pressure 134/86 05/18/2014 3:45 PM CDT Pulse - - Temperature - - Respiratory Rate - - Oxygen Saturation - - Inhaled Oxygen Concentration - - Weight 94.3 kg (207 lb 14.3 oz) 05/18/2014 3:45 PM CDT Height 149 cm (4' 10.66) 05/18/2014 3:45 PM CDT Body Mass Index 42.48 05/18/2014 3:45 PM CDT documented in this encounter Progress Notes Todd Aponte M.D. - 05/18/2014 3:37 PM CDT [id number] CHIEF COMPLAINT/REASON FOR VISIT Routine OB visit. HISTORY OF PRESENT ILLNESS This patient is a 23-year-old -0-0-2 female with LMP of 09/20/2013 and an EDC of 06/27/2014 at 34 and 2/7 weeks. Patient presents for an OB nonstress test. She has complicated by prior section x2. Obesity. GERD. Seasonal allergic rhinitis. History of depression. Rubella nonimmune status. labor at 31 weeks, this . The patient was given betamethasone x2 doses on04/22/2014 and 04/23/2014. The patient no showed her appointment this morning, but rescheduled with another appointment for this afternoon. She is doing well. She has no complaints. She reports active movement. She denies leaking of fluid. No vaginal bleeding. No cramping or contractions. No pelvic pressure. No headaches or vision changes. No depression symptoms. ALLERGIES No known drug allergies. MEDICATIONS Generic vitamins. PAST MEDICAL/SURGICAL HISTORY PAST MEDICAL HISTORY: 1. Obesity. 2. GERD. 3. Seasonal allergic rhinitis. 4. Depression. 5. History of overdose and suicide attempt. PAST SURGICAL HISTORY: 1. section 2009. 2. section 2012. PAST OBSTETRICAL HISTORY: 1. section 11/26/2009. 2. section 06/01/2013. VITAL SIGNS Weight 94.3 kg, height 149 cm, blood pressure 134/86, repeat 130/78. PHYSICAL EXAMINATION GENERAL: Obese. Well-developed, well-nourished gravid female in no apparent distress. Alert and oriented times 3. Normal affect. ABDOMEN: Gravid, soft and nontender, obese. Fundal height 34 cm. Positive heart tones 148 beats per minute. Vertex presentation by Darinel's. Well-healed Pfannenstiel skin incision. EXTREMITIES: No edema or tenderness. GENITAL: Cervix is 1 cm dilated, external cervical os. Internal cervical os is fingertip. Cervix is 3 cm thick, 0 station. Cephalic presentation. PROCEDURE Nonstress test was performed. Please see separate report for details. IMPRESSION/REPORT/PLAN 1. Intrauterine at 34 and 2/7 weeks. Positive cardiac activity. 2. History of 2 prior sections. 3. Rubella nonimmune status. 4. labor at 31 weeks this gestation. Patient given betamethasone x2 doses on 04/22/2014 and 04/23/2014. 5. Obesity. 6. History of depression currently stable off medication. PLAN: 1. I reviewed nonstress test results showing reassuring assessment, without contractions. 2. Reassurance given to the patient. She has had no cervical change. 3. labor precautions the patient. 4. Routine OB precautions, recommendations, instructions reviewed with patient including movement and kick counts. 1. Encouraged patient to be at modified bed rest and avoid strenuous activity for the rest of the . I also encouraged fluids and hydration. 2. I recommend elective repeat section at 39 weeks. 3. I spent 30 minutes in kfit-md-rhap time with the patient, with over 50% of that time spent in counseling. Todd Aponte M.D./ruiz Electronically Signed By: TODD APONTE MD On: 05/21/2014 08:25 AM Source: [facility] MHSDOLBEYNONRADSYS Document Id: [id number] documented in this encounter Procedure Notes Todd Aponte M.D. - 05/18/2014 12:00 AM CDT 2RPT DIAGNOSES 1. A 23-year-old G3, P2-0-0-2 female at 34-2/7 weeks. 2. History of 2 prior cesarian sections. 3. labor this . 4. Obesity. INDICATIONS FOR TEST 1. Intrauterine at 34-2/7 weeks. 2. History of labor this . INTERPRETATION Reactive reassuring assessment. HEART RATE BASELINE At 150s with good variability. Positive acceleration up to 168 beats per minute. No decelerations. PERIODIC CHANGES Are present. CONTRACTIONS None. RECOMMENDED FOLLOWUP One week as scheduled. I performed and interpreted the results of this testing. Todd Aponte M.D./ruiz Electronically Signed By: TODD APONTE MD On: 05/21/2014 08:25 AM Source: [facility] MHSDOLBEYNONRADSYS Document Id: [id number] documented in this encounter Miscellaneous Notes Miscellaneous - Todd Aponte M.D. - 05/18/2014 4:16 PM CDT Ambulatory Patient Summary [address] [id number] Visit Information Name: BARBRA CHUN [facility] Number: [id number] Current Date: 05/18/2014 16:16:16 Physicians Attending Provider: TODD APONTE MD Primary [...] the Following Medications: Medication list as of 05-18-14 16:16 Attention: If you have any medications at [...] Electronically Signed By: TODD APONTE MD Signed On:18-MAY-2014 16:16:12 Your Allergies & Intolerances Substance Reaction Symptoms Category Comments Cats Other has allergy to cats Your Problem List Problem Status Onset Comments Family History of Diabetes Mellitus Active Mild Hyperemesis Gravidarum, Antepartum Condition or Complication Active 10/26/2012 Previous delivery, antepartum Active 10/27/2013 Labor >22 Active Your Upcoming Appointments Date Time Location Reason Provider 05/25/2014 14:30 [facility] Todd Aponte MD Attention: Contact your local Clinic if further appointment detail needed. Your Goals/Additional instructions: Source: [facility] POWERCHART Document Id: [id number] Zaheer - Todd Aponte M.D. - 05/18/2014 4:16 PM CDT Ambulatory Discharge Medication List [address] [id number] Visit Information Name: BARBRA CHUN [facility] Number: [id number] Visit Date: 05/18/2014 16:16:15 Attending Provider: TODD APONTE MD Primary Care [...] the Following Medications: Medication list as of 05-18-14 16:16 Attention: If you have any medications at [...] Electronically Signed By: TODD APONTE MD Signed On:18-MAY-2014 16:16:12 Additional Information: Source: [facility] BIOeCONCHART Document Id: [id number] Zaheer - Kylee Crespo L.P.NWander - 05/18/2014 3:45 PM CDT Adult Crusher Tender Intake/History Adult Crusher Tender Intake/History Entered On: 05/18/2014 15:47 CDT Performed On: 05/18/2014 15:45 CDT by KYLEE CRESPO LPN Intake Chief Complaint : Ob visit 34 2/7 weeks NST LMP Date : 09/20/13 Systolic Blood Pressure : 134 mmHg Diastolic Blood Pressure : 86 mmHg NIBP Mean : 102 mmHg BP Location : Left upper extremity Blood Pressure Cuff Size : Regular Height : 149 cm(Converted to: 4 ft 11 inch(es), 59 inch(es)) Actual Weight : 94.3 kg(Converted to: 207 lb 14 oz) Dosing Weight Clinic : 94.3 kg Clinic BSA : 1.98 Body Mass Index : 42.48 kg/m2 KYLEE CRESPO LPN - 05/18/2014 15:45 CDT General Info Information Given By : Patient Languages : Spanish Is Patient Female and 13-50 no hysterectomy : Yes Status : Confirmed positive Are you ? : No KYLEE CRESPO LPN - 05/18/2014 15:45 CDT Subjective Pain Symptoms : No KYLEE CRESPO LPN - 05/18/2014 15:45 CDT Dependent Habits Tobacco Use/Currently Using : No Exposure to Tobacco Smoke : Lives with someone who smokes, Other: none Smoking Status : Never smoker KYLEE CRESPO LPN - 05/18/2014 15:45 CDT Caffeine Use Grid Caffeine Use : Current Type : Coffee Frequency : Daily KYLEE CRESPO LPN - 05/18/2014 15:45 CDT Source: [employer] Document Id: [id number] CDT!31 Telephone Encounter - Todd Aponte M.D. - 05/18/2014 12:00 AM CDT [id number] Ms. Chun no showed her appointment in the [facility] today. Todd Aponte M.D./ruiz Electronically Signed By: TODD APONTE MD On: 05/21/2014 08:25 AM Source: [facility] MHSDOLBEYNONRADSYS Document Id: [id number] documented in this encounter Plan of Treatment Not on filedocumented as of this encounter Visit Diagnoses Not on filedocumented in this encounter Additional Health Concerns Assessment Noted Time PHQ-9 Depression Total Score: 1 11/16/2012 11:45 AM CS T documented as of this encounter
--- OUTSIDE RECORDS SUMMARY | 2022-07-09 20:43 | XMS_ITS | Encounter Summary ---
:1990 Author Organization [facility] Address [address] [place] [address] Care Team Providers Name Role Phone Unavailable Primary Care Provider Unavailable Encounter Details Date Type Department Care Team Description 08/15/2014 Hospital Encounter HX [facility] Todd Dinero [...] do you attend confucianist or Never 2020 mandaeism services? Do you [...] Sign Reading Time Taken Comments Blood Pressure 92/52 08/15/2014 9:10 AM CUSTOMER CONTACT SPECIALIST Pulse 82 08/15/2014 9:10 AM CUSTOMER CONTACT SPECIALIST Temperature - - Respiratory Rate - - Oxygen Saturation - - Inhaled Oxygen Concentration - - Weight 91.5 kg (201 lb 11.5 oz) 08/15/2014 9:10 AM CUSTOMER CONTACT SPECIALIST Height 149 cm (4' 10.66) 08/15/2014 9:10 AM CUSTOMER CONTACT SPECIALIST Body Mass Index 41.21 08/15/2014 9:10 AM CUSTOMER CONTACT SPECIALIST documented in this encounter Progress Notes Todd Aponte M.D. - 08/15/2014 9:06 AM CST [id number] CHIEF COMPLAINT/REASON FOR VISIT visit. HISTORY OF PRESENT ILLNESS This patient is a 23-year-old, G3, P3-0-0-3 female who presents for visit. She had a repeat section on 06/20/2014 delivering a viable female . She is doing well. She has no complaints. The patient developed a postop incision cellulitis and was treated with antibiotics. This has resolved. 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 She has no headaches or vision changes. No depression symptoms or suicidal thoughts. No shortness of breath or chest pain. No fevers or chills. No difficulty urinating. No change in bowel habits. No constipation. No diarrhea. No vaginal itching, irritation or discharge. Shehas not had menses since delivery. She reports no intercourse since delivery. She reports her incision has healed well. The patient would like to discuss contraception options. She received Depo- Provera prior to being discharged home but is interested in long-term contraception. ALLERGIES No known drug allergies. MEDICATIONS 1. Generic vitamins. 2. Yijv-see-reowhsk stool softener. 3. Depo-Provera, given on 06/22/2014. PAST MEDICAL/SURGICAL HISTORY 1. Obesity. 2. GERD. 3. Constipation. 4. Seasonal allergic rhinitis. 5. Depression. 6. Pelvic adhesions. 7. History of overdose and suicide attempt. PAST SURGICAL HISTORY: 1. section 2009. 2. section 2012. 3. section 06/20/2014. PAST OBSTETRICAL HISTORY: 1. section 11/26/2009 at 37 weeks, male , 6 pounds 10 ounces. 2. section 06/01/2013 at 39 weeks, male infant, 2905 g. 3. section 06/20/2014 at 39 weeks, female , 2550 g, dense pelvic adhesions. SOCIAL HISTORY Patient is single. She denies tobacco, alcohol or drug use. No history of abuse. No history of PID. She was treated for chlamydia in 2012. No history of cervical dysplasia. ADULT PREVENTIVE SERVICES Provided by [facility]. The patient had chlamydia testing on 01/02/2014. She had tetanus on 06/22/2014, influenza 06/22/2014, Pap smear 01/02/2014. Depression denied. VITAL SIGNS Weight 91.5 kg, height 149 cm. Pulse 82,respiration 18, blood pressure 92/52. PHYSICAL EXAMINATION GENERAL: Well-developed, well-nourished, obese female, in no apparent distress. Alert oriented x3. Normal affect. ABDOMEN: Soft, obese, nontender, nondistended. Positive bowel sounds. No hepatomegaly. No rebound. No guarding. Well-healed Pfannenstiel skin incision. No signs of infection. EXTREMITIES: No clubbing, cyanosis, or edema. Nontender bilaterally. GENITALIA: Declined by patient. IMPRESSION/REPORT/PLAN 1. Normal visit after section 06/20/2014. 2. Pelvic adhesive disease. 3. Contraception counseling. 4. Nursing. 5. History of depression, currently asymptomatic. PLAN: 1. I gave the patient return to work note. I recommend she return to work without restrictions. 2. Routine depression precautions reviewed with the patient. 3. Routine precautions reviewed with the patient. 4. Nursing is encouraged. 5. I discussed contraception options with the patient. The patient would like long-term contraception. I reviewed the risks, benefits, alternatives, indication of Nexplanon, Mirena IUD, Charito IUD, and ParaGard IUD. I also discussed Depo-Provera as well as control pills, NuvaRing, Ortho Evra patch. 6. Patient is interested in Nexplanon. I gave the patient literature to review. I reviewed the risks, benefits, alternatives, and indications of Nexplanon. I reviewed with patient this is effective forcontraception for 3 years. I discussed the failure rate of less 1%. I discussed the risk for irregular bleeding. The patient desires to proceed. The patient has signed the Nexplanon order form and we will send this to final assembly inspector to obtain the device for the patient. 7. The patient follow up in 2 weeks for Nexplanon insertion. I recommend she remain abstinent from now until the Nexplanon is inserted. Will check a urine test prior to placing the Nexplanon. 8. I spent 25 minutes tzpe-tz-pzeo time with patient with over 50% of time spent in counseling. Todd Aponte M.D./ruiz Electronically Signed By: TODD APONTE MD On: 08/15/2014 10:45 AM Source: [facility] MHSDOLBEYNONRADSYS Document Id: [id number] OMER CONTACT SPECIALIST documented in this encounter Miscellaneous Notes Miscellaneous - Todd Aponte M.D. - 08/15/2014 9:27 AM CST Ambulatory Patient Summary [address] [id number] Visit Information Name: NORAH GIMENEZ [facility] Number: [id number] Current Date: 08/15/2014 09:27:20 Physicians Attending Provider: TODD APONTE MD Primary Care Provider: TODD APONTE MD AMMY NORAH MAYORGA has been given the following list [...] Take Indications/Special Instructions/Comments/Notes for Patient Medication Changes/Routing medroxyPROGESTERone (Depo-Provera Contraceptive) 150 mg, Intramuscular, once multivitamin, ( Multivitamins oral tablet) 1 Tablet(s), Oral, once a day Stop Taking the Following Medications: Medication list as of 08-15-14 09:27 Attention: If you have any medications at [...] Electronically Signed By: TODD APONTE MD Signed On:15-AUG-2014 09:27:12 Your Allergies & Intolerances Substance Reaction Symptoms Category Comments Cats Other has allergy to cats Your Problem List Problem Status Onset Comments Family History of Diabetes Mellitus Active Adhesion Pelvic Female Active Your Upcoming Appointments Date Time Location Provider No Appointments found Attention: Contact your local Clinic if further appointment detail needed. Your Goals/Additional instructions: Source: [facility] [employer]CHART Document Id: [id number] Todd Reyez M.D. - 08/15/2014 9:27 AM CST Ambulatory Discharge Medication List [address] [id number] Visit Information Name: NORAH GIMENEZ [facility] Number: [id number] Visit Date: 08/15/2014 09:27:19 Attending Provider: TODD APONTE MD Primary Care Provider: TODD APONTE MD NORAH GIMENEZ has been given the following list of medications: Your Medications It is important to take your medications as directed. Use a pill box or chart to help remind you to take your medications. Please let your doctor or nurse know if you have problems taking your medications. Medication/Strength How to Take Indications/Special Instructions/Comments/Notes for Patient Medication Changes/Routing medroxyPROGESTERone (Depo-Provera Contraceptive) 150 mg, Intramuscular, once multivitamin, ( Multivitamins oral tablet) 1 Tablet(s), Oral, once a day Stop Taking the Following Medications: Medication list as of 08-15-14 09:27 Attention: If you have any medications at [...] Electronically Signed By: TODD APONTE MD Signed On:15-AUG-2014 09:27:12 Additional Information: Source: [facility] [employer]CHART Document Id: [id number] Todd Reyez M.D. - 08/15/2014 9:20 AM CST Work Excuse 15 August 2014 NORAH GIMENEZ [address] [facility] [id number] Dear NORAH GIMENEZ, You were examined in my office on: 08/15/2014 9:19 Reason for work excuse: Medical Illness ( [...] ( _ ) Return to Work date: 08/16/2014 Notes: She had surgery on 06/20/2014 and can return to work tomorrow without restrictions Sincerely, TODD APONTE [address] [place] [address] [place] [address] Electronic Signature Electronically Signed By: TODD APONTE MD On: 15 August 2014 This document has images extracted. Source: [facility] POWERCHART Document Id: [id number] Electronically signed by Maycol [facility] Dynamic Etching Processor [id number] at 02/23/2017 9:39 AM CDT Miscellaneous - Diamond Crespo, L.P.N. - 08/15/2014 9:10 AM CST Adult Special Education Professional Intake/History Adult Special Education Professional Intake/History Entered On: 08/15/2014 9:14 CUSTOMER CONTACT SPECIALIST Performed On: 08/15/2014 9:10 CUSTOMER CONTACT SPECIALIST by DIAMOND CRESPO LPN Intake Chief Complaint : Post Peripheral Pulse Rate : 82 /min Systolic Blood Pressure : 92 mmHg Diastolic Blood Pressure : 52 mmHg NIBP Mean : 65 mmHg BP Location : Right upper extremity Blood Pressure Cuff Size : Large Height : 149 cm(Converted to: 4 ft 11 inch(es), 59 inch(es)) Actual Weight : 91.5 kg(Converted to: 201 lb 12 oz) Weight Source : Standing scale Dosing Weight Clinic : 91.5 kg Clinic BSA : 1.95 Body Mass Index : 41.21 kg/m2 DIAMOND CRESPO LPN - 08/15/2014 9:10 CUSTOMER CONTACT SPECIALIST General Info Information Given By : Patient Languages : Maltese Is Patient Female and 13-50 no hysterectomy : Yes Status : Patient denies Are you ? : Yes DIAMOND CRESPO LPN - 08/15/2014 9:10 CUSTOMER CONTACT SPECIALIST Subjective Pain Symptoms : No DIAMOND CRESPO [facility] - 08/15/2014 9:10 CUSTOMER CONTACT SPECIALIST Dependent Habits Tobacco Use/Currently Using : No Exposure to Tobacco Smoke : Lives with someone who smokes, Other: none Smoking Status : Never smoker GIACOMO CRESPOAH Lisandra [facility] - 08/15/2014 9:10 CUSTOMER CONTACT SPECIALIST Caffeine Use Grid Caffeine Use : Current Type : Coffee Frequency : Daily DIAMOND CRESPO [facility] - 08/15/2014 9:10 CUSTOMER CONTACT SPECIALIST ID Screen Travel Within Last 21 Days : No DIAMOND CRESPO LPN - 08/15/2014 9:10 CUSTOMER CONTACT SPECIALIST [facility] Document Id: [id number] CUSTOMER CONTACT SPECIALIST!34 OMER CONTACT SPECIALIST documented in this encounter Plan of Treatment Not on filedocumented as of this encounter Visit Diagnoses Not on filedocumented in this encounter Additional Health Concerns Assessment Noted Time PHQ-9 Depression Total Score: 1 11/16/2012 11:45 AM CS T documented as of this encounter
--- OUTSIDE RECORDS SUMMARY | 2022-07-09 20:43 | XMS_ITS | Encounter Summary ---
:1990 Author Organization [facility] Address [address] [place] [address] Care Team Providers Name Role Phone Unavailable Primary Care Provider Unavailable Encounter Details Date Type Department Care Team Description 05/30/2014 Hospital Encounter HX [facility] Todd Dinero [...] do you attend yazidi or Never 2020 oriental orthodox services? Do you belong to any [...] Reading Time Taken Comments Blood Pressure 134/70 05/30/2014 1:52 PM CDT Pulse - - Temperature - - Respiratory Rate - - Oxygen Saturation - - Inhaled Oxygen Concentration - - Weight 94.4 kg (208 lb 1.8 oz) 05/30/2014 1:52 PM CDT Height 149 cm (4' 10.66) 05/30/2014 1:52 PM CDT Body Mass Index 42.52 05/30/2014 1:52 PM CDT documented in this encounter Progress Notes Todd Aponte M.D. - 05/30/2014 1:45 PM CDT [id number] CHIEF COMPLAINT/REASON FOR VISIT Routine OB visit. HISTORY OF PRESENT ILLNESS This patient is a 23-year-old, G3, P2-0-0-2 female with LMP of 09/20/2013 and EDC of 06/27/2014 at 36 and 0/7 weeks. Patient presents for OB visit and nonstress test. She has complicated by prior section x2, obesity, GERD, seasonal allergic rhinitis, history of depression, rubella no nimmune status, labor at 31 weeks during this . The patient was given betamethasonex2 doses on 04/22/2014 and 04/23/2014. The patient was seen in Labor and Delivery yesterday with dysuria and contractions. She reports no urinalysis was obtained. She was given some intravenous fluids and was sent home with no cervical change. She reports active movement. She reports her contractions have resolved. No cramping or contractions. No pelvic pressure. No headaches or vision changes. No depression symptoms. No leaking of fluid vaginal bleeding. No headaches or vision changes. No depression. ALLERGIES No known drug allergies. MEDICATIONS Generic vitamins. PAST MEDICAL/SURGICAL HISTORY PAST MEDICAL HISTORY: 1. Obesity. 2. GERD. 3. Seasonal allergic rhinitis. 4. Depression. 5. History of overdose and suicide attempt. PAST SURGICAL HISTORY: 1. section 2009. 2. section 2012. PAST OBSTETRICAL HISTORY: 1. section 11/26/2009, 37 and 2/7 weeks. 2. section 06/01/2013, 39 and 1/7 weeks. VITAL SIGNS Weight 94.4 kg, height 149 cm. Blood pressure 134/70. Pulse 64. PHYSICAL EXAMINATION GENERAL: Well-developed, well-nourished, obese, gravid female in no apparent distress. Alert and oriented times 3. Normal affect. ABDOMEN: Gravid, obese, soft and nontender. Fundal height is 36 cm. Positive heart tones 150 beats per minute. Vertex presentation by Katie. Well- healed Pfannenstiel skin incision. EXTREMITIES: No edema or tenderness. GENITALIA: With 1 cm dilated external cervical os. Internal cervical os is fingertip. Cervix is 3 cmthick, 0 station. No change from prior examination. Cephalic presentation. DIAGNOSTICS Lab 05/30/2014: Urine dip is negative for nitrites. Positive leukocyte esterase. Urine culture obtained, results are pending. Procedure 05/30/2014: Nonstress test is performed. Please see separate report for details. IMPRESSION/REPORT/PLAN 1. Intrauterine at 36 and 0/7 weeks. Positive cardiac activity. 2. History of 2 prior sections. 3. Rubella nonimmune status. 4. labor at 31 weeks gestation. Patient was given betamethasone x2 doses on 04/22/2014 and 04/23/2014. 5. Obesity. 6. History of depression, currently stable off medication. 7. Dysuria. PLAN: 1. I reviewed nonstress test results with the patient showing reassuring assessment with fetalheart tones 150s, good variability, positive accelerations, no decelerations, no contractions. 2. Patient had a reassuring assessment on Labor and Delivery last night with no cervical change. 3. I discussed the patient's dysuria. Her urine dip looks negative, without evidence of infection. Urine culture is obtained. I will contact the patient with this result. 4. Encouraged fluids and hydration. I discusseduse of cranberry juice. 5. Routine OB precautions, recommendations, instructions are reviewed with patient including movement and kick counts. 6. labor precautions are reviewed with the patient. 7. I recommend checking group B strep culture at next visit per protocol. 8. I recommend elective repeat section at term. This is scheduled at 39 and 0/7 weeks on 06/20/2014. 9. I spent 30 minutes [id number] time with the patient with over 50% of that time spent in counseling. Todd Aponte M.D./ruiz Electronically Signed By: TODD APONTE MD On: 05/30/2014 05:46 PM Source: [facility]OLBEYNON[employer]SYS Document Id: [id number] documented in this encounter Procedure Notes Kylee Crespo L.PWanderNWander - 05/30/2014 2:22 PM CDT Urine Dipstick Urine Dipstick Entered On: 05/30/2014 14:23 CDT Performed On: 05/30/2014 14:22 CDT by KYLEE CRESPO LPN Urine Dipstick UA Color POC : Yellow UA Appear POC : Clear UA Leuk POC : 3+ Large UA Nitrite POC : Negative UA Urobilinogen POC : 1 mg/dl UA Protein POC : Trace UA pH POC : 7.0 UA Blood POC : 1+ SMALL UA Spec Grav POC : 1.025 UA Ketones POC : Negative UA Bili POC : 1+ Small UA Glucose POC : Negative KYLEE CRESPO LPN - 05/30/2014 14:22 CDT Source: [facility] [employer] Document Id: [id number] CDT!14 Todd Aponte M.D. - 05/30/2014 12:00 AM CDT 2RPT DIAGNOSES 1. A 23-year-old G3, P2-0-0-2 female at 35-6/7 weeks. 2. History of 2 prior sections. 3. labor with this . 4. Obesity. INDICATIONS FOR TEST 1. Intrauterine at 35-6/7 weeks. 2. History of labor with this . INTERPRETATION Reactive and reassuring assessment. HEART RATE BASELINE At 140s with good variability and positive accelerations up to 170 beats per minute. No decelerations. PERIODIC CHANGES Present. CONTRACTIONS None. RECOMMENDED FOLLOWUP One week as scheduled. I performed and interpreted the results of this testing. Todd Aponte M.D./ruiz Electronically Signed By: TODD APONTE MD On: 05/30/2014 05:46 PM Source: [facility]SDOLBEYNON[employer] Document Id: [id number] documented in this encounter Miscellaneous Notes Miscellaneous - Todd Aponte M.D. - 05/30/2014 2:17 PM CDT Ambulatory Patient Summary [address] [id number] Visit Information Name: BARBRA GIMENEZ [facility] Number: [id number] Current Date: 05/30/2014 14:17:46 Physicians Attending Provider: TODD APONTE MD Primary [...] the Following Medications: Medication list as of 05-30-14 14:17 Attention: If you have any medications at [...] Electronically Signed By: TODD APONTE MD Signed On:30-MAY-2014 14:17:43 Your Allergies & Intolerances Substance Reaction Symptoms Category Comments Cats Other has allergy to cats Your Problem List Problem Status Onset Comments Family History of Diabetes Mellitus Active Mild Hyperemesis Gravidarum, Antepartum Condition or Complication Active 10/26/2012 Previous delivery, antepartum Active 10/27/2013 Labor >22 Active Your Upcoming Appointments Date Time Location Provider 06/06/2014 14:00 [facility] FLOOR INSTALLATION MECHANIC Todd Aponte MD 06/13/2014 14:30 [facility] FLOOR INSTALLATION MECHANIC Todd Aponte MD Attention: Contact your local Clinic if further appointment detail needed. Your Goals/Additional instructions: Source: [facility] [employer] Document Id: [id number] Miscellaneous - Todd Aponte M.D. - 05/30/2014 2:17 PM CDT Ambulatory Discharge Medication List [address] [id number] Visit Information Name: BARBRA GIMENEZ [facility] Number: [id number] Visit Date: 05/30/2014 14:17:45 Attending Provider: TODD APONTE MD Primary Care [...] the Following Medications: Medication list as of 05-30-14 14:17 Attention: If you have any medications at [...] Electronically Signed By: TODD APONTE MD Signed On:30-MAY-2014 14:17:43 Additional Information: Source: [facility] POWERCHART Document Id: [id number] Miscellaneous - Kylee Crespo, L.P.N. - 05/30/2014 1:52 PM CDT Adult Adoption Agent Intake/History Adult Adoption Agent Intake/History Entered On: 05/30/2014 13:54 CDT Performed On: 05/30/2014 13:52 CDT by KYLEE CRESPO LPN Intake Chief Complaint : Ob visit 35 6/7 weeks LMP Date : 09/20/13 Systolic Blood Pressure : 134 mmHg Diastolic Blood Pressure : 70 mmHg NIBP Mean : 91 mmHg BP Location : Left upper extremity Blood Pressure Cuff Size : Regular Height : 149 cm(Converted to: 4 ft 11 inch(es), 59 inch(es)) Actual Weight : 94.4 kg(Converted to: 208 lb 2 oz) Dosing Weight Clinic : 94.4 kg Clinic BSA : 1.98 Body Mass Index : 42.52 kg/m2 KYLEE CRESPO [facility] - 05/30/2014 13:52 CDT General Info Information Given By : Patient Languages : Swedish Is Patient Female and 13-50 no hysterectomy : Yes Status : Confirmed positive Are you ? : No KYLEE CRESPO [facility] - 05/30/2014 13:52 CDT Subjective Pain Symptoms : No KYLEE CRESPO [facility] - 05/30/2014 13:52 CDT Dependent Habits Tobacco Use/Currently Using : No Exposure to Tobacco Smoke : Lives with someone who smokes, Other: none Smoking Status : Never smoker KYLEE CRESPO [facility] - 05/30/2014 13:52 CDT Caffeine Use Grid Caffeine Use : Current Type : Coffee Frequency : Daily KYLEE CRESPO [facility] - 05/30/2014 13:52 CDT Source: [facility] [employer] Document Id: [id number] CDT!31 documented in this encounter Plan of Treatment Not on filedocumented as of this encounter Procedures Procedure Name Priority Date/Time Associated Comments Diagnosis DIPSTICK, POCT, U Routine 05/30/2014 2:22 PM Resu lts for this (NURSING) INTERFACED CDT procedu re are in the results section. BACTERIAL CULTURE, Routine 05/30/2014 2:15 PM Res ults for this AEROBIC, URINE CDT procedure are in the results section. documented in this encounter Results Dipstick, POCT, Urine (nursing) (05/30/2014 2:22 PM CDT) Analysis Performed At [facility] Time Signature Color Yellow POWERCHART Appearance Clear POWERCHART Leukocytes, 3+ Large POWERCHART POCT, U Nitrites, POCT, Negative POWERCHART U Urobilinogen, 1 mg/dl POWERCHART POCT, Urine Protein, POCT, Trace POWERCHART U pH, POCT, Urine 7.0 5.0 - 9.0 POWERCHART Blood, POCT, U 1+ SMALL POWERCHART Specific 1.025 1.000 - POWERCHART Filion, POCT, 1.030 U Ketone, POCT, U Negative POWERCHART Bilirubin, 1+ Small POWERCHART POCT, U Glucose, POCT, Negative POWERCHART U Specimen (Source) Anatomical Collection Method Collection Time Re ceived Time Location / / Volume Laterality 05/30/2014 2:22 PM CDT Todd Aponte M.D. LAB POCT ORDERABLES - DEVICE Performing Organization Address City/State/ZIP Code Phon e Number POWERCHART Bacterial Culture, Aerobic, Urine (05/30/2014 2:15 PM CDT) [facility] Method Time Signature Bacterial POWERCHART Culture, Aerobic, Urine HXPre Reincubate POWERCHART HXFinal Mixed say. No POWERCHART further studies unless notified. [facility] Microbiology laboratory [phone] Specimen (Source) Anatomical Collection Method Collection Time Re ceived Time Location / / Volume Laterality Urine, Clean 05/30/2014 2:15 PM Catch CDT Todd Aponte M.D. LAB MICROBIOLOGY - GENERAL O RDERABLES Performing Organization Address City/State/ZIP Code Phon e Number POWERCHART documented in this encounter Visit Diagnoses Not on filedocumented in this encounter Additional Health Concerns Assessment Noted Time PHQ-9 Depression Total Score: 1 11/16/2012 11:45 AM CS T documented as of this encounter
--- OUTSIDE RECORDS SUMMARY | 2022-07-09 20:43 | XMS_ITS | Encounter Summary ---
:1990 Author Organization [facility] Address [address] [place] [address] Care Team Providers Name Role Phone Unavailable Primary Care Provider Unavailable Encounter Details Date Type Department Care Team Description 05/11/2014 Hospital Encounter HX [facility] Todd Dinero [...] do you attend sikhism or Never 2020 islam services? Do you [...] Sign Reading Time Taken Comments Blood Pressure 102/60 05/11/2014 4:01 PM CDT Pulse - - Temperature - - Respiratory Rate - - Oxygen Saturation - - Inhaled Oxygen Concentration - - Weight 56.6 kg (124 lb 12.5 oz) 05/11/2014 4:01 PM CDT Height 149 cm (4' 10.66) 05/11/2014 4:01 PM CDT Body Mass Index 25.49 05/11/2014 4:01 PM CDT documented in this encounter Progress Notes Todd Aponte M.D. - 05/11/2014 9:57 AM CDT [id number] CHIEF COMPLAINT/REASON FOR VISIT Routine OB visit. HISTORY OF PRESENT ILLNESS This patient is a 23-year-old -0-0-2 female with LMP of 09/20/2013 and EDC of 06/27/2014 at 33 and 2/7 weeks. The patient has a complicated by prior section x2. Obesity. GERD. Seasonal allergic rhinitis. History depression. Rubella nonimmune status. labor at 31 weeks, this . The patient is given betamethasone x2 doses on 04/22 and 04/23/2014. The patient presents for OB visit and follow up. She is doing well. She has no complaints. She reports her contractions have completely resolved now that she is at rest. No contractions. No pelvic pressure. No leaking of fluid or vaginal bleeding. No headaches or vision changes. No depression symptoms. No difficulty urinating. No change in bowel habits. No vaginal itching or irritation. She reports active movement. She feels good. ALLERGIES No known drug allergies. MEDICATIONS Generic vitamins. PAST MEDICAL/SURGICAL HISTORY PAST MEDICAL HISTORY: 1. Obesity. 2. GERD. 3. Seasonal allergic rhinitis. 4. Depression. 5. History of overdose and suicide attempt. PAST SURGICAL HISTORY: 1. section 2009. 2. section 2012. PAST OBSTETRICAL HISTORY: 1. section 11/26/2009. 2. section 06/01/2013. VITAL SIGNS Weight 94.8 kg, height 149 cm, blood pressure 138/72. PHYSICAL EXAMINATION GENERAL: Well-developed, well-nourished obese gravid female in no apparent distress. Alert and oriented times 3. Normal affect. ABDOMEN: Gravid, soft and nontender, obese. Fundal height is 33 cm. Positive heart tones 150 beats per minute. Vertex presentation by Katie. Well- healed Pfannenstiel skin incision. EXTREMITIES: No edema or tenderness. GENITAL: Cervix is 1 cm dilated, external cervical os. Internal cervical os is fingertip. Cervix is 3 cm thick, 0 station. Cephalic presentation confirmed. No change from prior examination. PROCEDURE PERFORMED Nonstress test was performed. Please see separate report for details. PROCEDURE PERFORMED OB ultrasound is performed. Please see separate report for details. IMPRESSION/REPORT/PLAN 1. Intrauterine at 33 and 2/7 weeks. Positive cardiac activity. 2. History of 2 prior sections. 3. Rubella nonimmune status. 4. labor at 31 weeks this gestation. Given betamethasone x2 doses on 04/22 and 04/23. 5. Obesity. 6. History depression, currently stable off medication. PLAN: 1. I reviewed nonstress test results with patient showing reactive reassuring assessment. No evidence of contractions. 2. I reviewed OB ultrasound results with the patient showing appropriate interval growth. Thisshows an intrauterine at 33 and 4/7 weeks with estimated weight of 2024 g, which is 46th percentile for growth. Fluid level is normal at 10.85. No gross anomalies are visualized. Placenta is located anteriorly. 3. Reassurance given to the patient. She has had no further cervical change. She has no contractionson the monitor. She is not feeling any contractions. She has appropriate interval growth with ultrasound. 4. labor precautions reviewed with the patient. 5. Routine OB precautions, recommendations and instructions are reviewed with the patient including movement and kick counts. 6. I encouraged the patient to continue to be at modified bed rest and avoid strenuous activity for the rest of the . I encouraged fluids and hydration. 7. I recommend elective repeat section at term. 8. I spent 30 minutes in [id number] time with the patient, with over 50% of that time spent in counseling. Todd Aponte M.D./ruiz Electronically Signed By: TODD APONTE MD On: 05/11/2014 02:04 PM Source: [facility] MHSDOLBEYNONRADSYS Document Id: [id number] documented in this encounter Procedure Notes Todd Aponte M.D. - 05/11/2014 12:00 AM CDT 2RPT DIAGNOSIS 1. A 23-year-old G3, P2-0-0-2 female at 33 and 2/7 weeks. 2. History of 2 prior sections. 3. History of labor. 4. Obesity. INDICATION FOR TEST 1. Intrauterine at 33 and 2/7 weeks. 2. History of labor this . INTERPRETATION Reactive and reassuring. HEART RATE BASELINE 140s with good variability and positive acceleration up to 162 beats per minute. No decelerations. PERIODIC CHANGES Present. CONTRACTIONS No contractions are present. RECOMMENDED FOLLOWUP One week as scheduled. I performed and interpreted the results of tis testing. Todd Aponte M.D./ruiz Electronically Signed By: TODD APONTE MD On: 05/11/2014 02:04 PM Source: [facility]SDOLBEYNONRADSYS Document Id: [id number] documented in this encounter Miscellaneous Notes Miscellaneous - Kylee Crespo, L.P.N. - 05/11/2014 4:01 PM CDT Adult Hospital Unit Coordinator Intake/History Adult Hospital Unit Coordinator Intake/History Entered On: 05/11/2014 16:01 CDT Performed On: 05/11/2014 16:01 CDT by KYLEE CRESPO LPN Intake Chief Complaint : Ob visit 11 1/7 weeks LMP Date : 02/21/14 Systolic Blood Pressure : 102 mmHg Diastolic Blood Pressure : 60 mmHg NIBP Mean : 74 mmHg BP Location : Left upper extremity Blood Pressure Cuff Size : Regular Height : 149 cm(Converted to: 4 ft 11 inch(es), 59 inch(es)) Actual Weight : 56.6 kg(Converted to: 124 lb 13 oz) Dosing Weight Clinic : 56.6 kg Clinic BSA : 1.53 Body Mass Index : 25.49 kg/m2 KYLEE CRESPO LPN - 05/11/2014 16:01 CDT General Info Information Given By : Patient Languages : Citizen Of [place] Is Patient Female and 13-50 no hysterectomy : Yes Status : Confirmed positive Are you ? : No KYLEE CRESPO LPN - 05/11/2014 16:01 CDT Subjective Pain Symptoms : No KYLEE CRESPO LPN - 05/11/2014 16:01 CDT Dependent Habits Tobacco Use/Currently Using : No Exposure to Tobacco Smoke : Lives with someone who smokes, Other: none Smoking Status : Never smoker KYLEE CRESPO [employer] - 05/11/2014 16:01 CDT Caffeine Use Grid Caffeine Use : Current Type : Coffee Frequency : Daily KYLEE CRESPO BRENNA - 05/11/2014 16:01 CDT Source: [facility] [employer] Document Id: [id number] CDT!31 Miscellaneous - Todd Aponte M.D. - 05/11/2014 12:42 PM CDT Ambulatory Patient Summary [address] [id number] Visit Information Name: BARBRA GIMENEZ [facility] Number: [id number] Current Date: 05/11/2014 12:42:01 Physicians Attending Provider: TODD APONTE MD Primary [...] the Following Medications: Medication list as of 05-11-14 12:42 Attention: If you have any medications at [...] Electronically Signed By: TODD APONTE MD Signed On:11-MAY-2014 12:41:57 Your Allergies & Intolerances Substance Reaction Symptoms Category Comments Cats Other has allergy to cats Your Problem List Problem Status Onset Comments Family History of Diabetes Mellitus Active Mild Hyperemesis Gravidarum, Antepartum Condition or Complication Active 10/26/2012 Previous delivery, antepartum Active 10/27/2013 Labor >22 Active Your Upcoming Appointments Date Time Location Reason Provider 05/18/2014 09:30 [facility] ADA ACCOMMODATION CONSULTANT ob, NST Todd Aponte MD Attention: Contact your local Clinic if further appointment detail needed. Your Goals/Additional instructions: Source: [facility] [employer] Document Id: [id number] Miscellaneous - Todd Aponte M.D. - 05/11/2014 12:42 PM CDT Ambulatory Discharge Medication List [address] [id number] Visit Information Name: BARBRA GIMENEZ MUKESH [facility] Number: [id number] Visit Date: 05/11/2014 12:41:59 Attending Provider: TODD APONTE MD Primary Care Provider: TODD APONTE MD BARBRA GIMENEZLE has been given the following list of [...] the Following Medications: Medication list as of 05-11-14 12:41 Attention: If you have any medications at [...] Electronically Signed By: TODD APONTE MD Signed On:11-MAY-2014 12:41:57 Additional Information: [facility] Document Id: [id number] Miscellaneous - Kylee Crespo L.P.N. - 05/11/2014 10:02 AM CDT Adult Hospital Unit Coordinator Intake/History Adult Hospital Unit Coordinator Intake/History Entered On: 05/11/2014 10:03 CDT Performed On: 05/11/2014 10:02 CDT by KYLEE CRESPO LPN Intake Chief Complaint : Ob visit, US. NST 32 2/7 weeks LMP Date : 09/20/13 Systolic Blood Pressure : 138 mmHg Diastolic Blood Pressure : 72 mmHg NIBP Mean : 94 mmHg BP Location : Left upper extremity Blood Pressure Cuff Size : Regular Height : 149 cm(Converted to: 4 ft 11 inch(es), 59 inch(es)) Actual Weight : 94.8 kg(Converted to: 209 lb 0 oz) Dosing Weight Clinic : 94.8 kg Clinic BSA : 1.98 Body Mass Index : 42.7 kg/m2 KYLEE CRESPO [employer] TECHN[employer]IST - 05/11/2014 10:02 CDT General Info Information Given By : Patient Languages : Citizen Of [place] Is Patient Female and 13-50 no hysterectomy : Yes Status : Confirmed positive Are you ? : No KYLEE CRESPO LPN - 05/11/2014 10:02 CDT Subjective Pain Symptoms : No KYLEE CRESPO LPN - 05/11/2014 10:02 CDT Dependent Habits Tobacco Use/Currently Using : No Exposure to Tobacco Smoke : Lives with someone who smokes, Other: none Smoking Status : Never smoker KYLEE CRESPO LPN - 05/11/2014 10:02 CDT Caffeine Use Grid Caffeine Use : Current Type : Coffee Frequency : Daily KYLEE CRESPO LPN - 05/11/2014 10:02 CDT Source: [employer] Document Id: [id number] CDT!31 documented in this encounter Plan of Treatment Not on filedocumented as of this encounter Visit Diagnoses Not on filedocumented in this encounter Additional Health Concerns Assessment Noted Time PHQ-9 Depression Total Score: 1 11/16/2012 11:45 AM CS T documented as of this encounter
--- OUTSIDE RECORDS SUMMARY | 2022-07-09 20:43 | XMS_ITS | Encounter Summary ---
:1990 Author Organization [facility] Address [address] [place] [address] Care Team Providers Name Role Phone Unavailable Primary Care Provider Unavailable Encounter Details Date Type Department Care Team Description 04/18/2014 Hospital Encounter [facility]X [facility] Todd Aponte M.D . Social History Tobacco Use Types Packs/Day Years [...] do you attend lutheran or Never 2020 scientologist services? Do you [...] - - Height 149 cm (4' 10.66) 04/18/2014 8:46 AM CDT Body Mass Index - - documented in this encounter Miscellaneous Notes Miscellaneous - Todd Aponte M.D. - 04/18/2014 1:16 PM CDT Normal Results Letter 18 April 2014 BARBRA GIMENEZ [address] [facility] [address] Dear BARBRA GIMENEZ, I am pleased to report that your results from the following diagnostic test(s) are normal. You do not have gestational diabetes. Please follow up with us as we discussed during your visit or sooner if you have any concerns. If you have questions or concerns, please do not hesitate to call our office. Result Name Current Result Previous Result Normal Range Gluc 3 Hr (mg/dL) 98 04/18/2014 107 03/22/2013 70 - 139 Gluc 2 Hr (mg/dL) 131 04/18/2014 110 03/22/2013 70 - 155 Gluc 1 Hr (mg/dL) 130 04/18/2014 (H) 142 03/22/2013 70 - 139 Gluc Fast 3Hr (mg/dL) 72 04/18/2014 77 03/22/2013 70 - 94 Sincerely, TODD APONTE [address] [place] [address] [place] [address] Electronic Signature Electronically Signed By: TODD APONTE MD On: 18 April 2014 This document has images extracted. Source: [facility] POWERCHART Document Id: [id number] Electronically signed by Conversion, [facility] Phlebotomy Tech [id number] at 02/23/2017 3:02 PM CDT documented in this encounter Plan of Treatment Not on filedocumented as of this encounter Procedures Procedure Name Priority Date/Time Associated Diagnosis Comme nts GLUCOSE TRACE, 3 HR, Routine 04/18/2014 11:55 AM Re sults for this S/P CDT procedure are i n the results section. ORAL GLUCOSE Routine 04/18/2014 10:55 AM Results for this TOLERANCE, CDT procedure are i n NON-GESTATIONAL, 2 the resul ts HOUR, section. GLUCOSE TRACE, 1HR, Routine 04/18/2014 9:58 AM Resu lts for this S/P CDT procedure are i n the results section. GLUCOSE TRACE, 3 HR, Routine 04/18/2014 8:49 AM Res ults for this S/P CDT procedure are i n the results section. documented in this encounter Results Glucose Tolerance, 3 Hours (04/18/2014 11:55 AM CDT) P athologist Signature HXGluc 3 Hr 98 70 - 139 POWERCHART MGDL Specimen (Source) Anatomical Collection Method Collection Time Re ceived Time Location / / Volume Laterality Blood 04/18/2014 11:55 AM CDT Todd Aponte M.D. LAB BLOOD NON ADD-ON Performing Organization Address City/State/ZIP Code Phon e Number POWERCHART Oral Glucose Tolerance, Non-Gestational, 2 Hour, (04/18/2014 10:55 AM CDT) P athologist Signature HXGluc 2 Hr 131 70 - 155 POWERCHART MGDL Specimen (Source) Anatomical Collection Method Collection Time Re ceived Time Location / / Volume Laterality Blood 04/18/2014 10:55 AM CDT Todd Aponte M.D. LAB BLOOD ADD-ON Performing Organization Address City/State/ZIP Code Phon e Number POWERCHART Glucose Tolerance, 1HR (04/18/2014 9:58 AM CDT) P athologist Signature HXGluc 1 Hr 130 70 - 139 POWERCHART MGDL Specimen (Source) Anatomical Collection Method Collection Time Re ceived Time Location / / Volume Laterality Blood 04/18/2014 9:58 AM CDT Todd Aponte M.D. LAB BLOOD NON ADD-ON Performing Organization Address City/State/ZIP Code Phon e Number POWERCHART Glucose Tolerance, 3 Hours (04/18/2014 8:49 AM CDT) P athologist Signature HXGluc Fast 3Hr 72 70 - 94 POWERCHART MGDL Specimen (Source) Anatomical Collection Method Collection Time Re ceived Time Location / / Volume Laterality Blood 04/18/2014 8:49 AM CDT Todd Aponte M.D. LAB BLOOD NON ADD-ON Performing Organization Address City/State/ZIP Code Phon e Number POWERCHART documented in this encounter Visit Diagnoses Not on filedocumented in this encounter Additional Health Concerns Assessment Noted Time PHQ-9 Depression Total Score: 1 11/16/2012 11:45 AM CS T documented as of this encounter
--- OUTSIDE RECORDS SUMMARY | 2022-07-09 20:43 | XMS_ITS | Encounter Summary ---
:1990 Author Organization [facility] Address [address] [place] [address] Care Team Providers Name Role Phone Unavailable Primary Care Provider Unavailable Encounter Details Date Type Department Care Team Description 08/30/2014 Hospital Encounter HX [facility] Todd Dinero [...] do you attend druze or Never 2020 mormon services? Do you [...] Sign Reading Time Taken Comments Blood Pressure 120/72 08/30/2014 2:07 PM INSULATOR TECHNICIAN Pulse 78 08/30/2014 2:07 PM INSULATOR TECHNICIAN Temperature - - Respiratory Rate - - Oxygen Saturation - - Inhaled Oxygen Concentration - - Weight 92.4 kg (203 lb 11.3 oz) 08/30/2014 2:07 PM INSULATOR TECHNICIAN Height 149 cm (4' 10.66) 08/30/2014 2:07 PM INSULATOR TECHNICIAN Body Mass Index 41.62 08/30/2014 2:07 PM INSULATOR TECHNICIAN documented in this encounter Progress Notes Todd Aponte M.D. - 08/30/2014 2:04 PM CST [id number] CHIEF COMPLAINT/REASON FOR VISIT Nexplanon insertion. HISTORY OF PRESENT ILLNESS This patient is a 23-year-old, G3, P3-0-0-3 female who presents for Nexplanon insertion. She had a repeat section on 06/20/2014. She was given Depo- Provera on 06/22/2014 prior to being discharged home she has not had a menses since delivery. She reports she has not had intercourse since delivery. She presents for Nexplanon insertion for long-term contraception. She is having no problems or difficulties. ALLERGIES No known drug allergies. MEDICATIONS 1. Generic vitamins. 2. Yfcz-nga-sovntql stool softener. 3. Depo-Provera, given on 06/22/2014. 4. Nexplanon inserted today. PAST MEDICAL/SURGICAL HISTORY 1. Obesity. 2. GERD. 3. Constipation. 4. Seasonal allergic rhinitis. 5. Depression. 6. Pelvic adhesions. 7. History of overdose and suicide attempt. PAST SURGICAL HISTORY: 1. section 2009. 2. section 2012. 3. section 06/20/2014. PAST OBSTETRICAL HISTORY: section x3. SOCIAL HISTORY The patient is single. She denies tobacco, alcohol, or drug use. No history of abuse. No history of PID. She was treated for chlamydia in 2012. No history of cervical dysplasia. PHYSICAL EXAMINATION VITAL SIGNS: Weight 92.4 kg, height 149 cm, pulse 78, blood pressure 120/72. GENERAL: Well-developed, well-nourished, obese female, in no apparent distress. Alert oriented x3. EXTREMITIES: No clubbing, cyanosis, or edema. Nontender bilaterally. GENITALIA: Deferred. PROCEDURE I reviewed the risks, benefits, alternatives, indications of Nexplanon insertion with the patient. Patient verbalizes understanding and desires to proceed. [employer] protocol form completed. I prepped and draped the medial aspect of left upper arm in the usual fashion. I marked the insertion site and the path of the Nexplanon capsule in the usual fashion. I then injected 3 mL of 1% lidocaine for local pain control. Next, I made a small stab incision with the scalpel at the insertion site.I obtained a Nexplanon insertion catheter and advanced this through the insertion site and along themarked path on the arm just under the skin in the usual fashion. I deployed the Nexplanon capsule and the insertion catheter is removed. I am able to palpate the Nexplanon capsule just under skin in the correct location. The patient is able to palpate the capsule. Steri-Strips are placed over the incis ion. A pressure bandage is placed over the site in the usual fashion. All sponge, lap, needle, and instrument counts are correct x2. The patient tolerated the procedure well. IMPRESSION/REPORT/PLAN Nexplanon insertion, at patient request. PLAN: I reviewed the risks, benefits, alternatives, and indications of Nexplanon with the patient. The patient would like long-term contraception. I reviewed with patient that Nexplanon is effective for 3 years and will need to be removed or replaced in August of 2017. I discussed the failure rate of less than 1%. I discussed the risk for irregular bleeding. I discussed the risk for amenorrhea. Thepatient verbalizes understanding desires to proceed. Nexplanon is inserted as mentioned above without difficulty. Todd Aponte M.D./ruiz Electronically Signed By: TODD APONTE MD On: 08/31/2014 01:25 PM Source: [facility] MHSDOLBEYNONRADSYS Document Id: [id number] LATOR TECHNICIAN documented in this encounter Miscellaneous Notes Miscellaneous - Todd Aponte M.D. - 08/30/2014 2:12 PM CST Ambulatory Patient Summary [address] [id number] Visit Information Name: BARBRA GIMENEZ [facility] Number: [id number] Current Date: 08/30/2014 14:12:48 Physicians Attending Provider: TODD APONTE MD Primary Care Provider: PCP, ELSEWHERE BARBRA GIMENEZ has been given the following [...] Take Indications/Special Instructions/Comments/Notes for Patient Medication Changes/Routing etonogestrel (etonogestrel) Implant, once New multivitamin, ( Multivitamins oral tablet) 1 Tablet(s), Oral, once a day Stop Taking the Following Medications: medroxyPROGESTERone (Depo-Provera Contraceptive) Medication list as of 08-30-14 14:12 Attention: If you have any medications at [...] Electronically Signed By: TODD APONTE MD Signed On:30-AUG-2014 14:12:44 Your Allergies & Intolerances Substance Reaction Symptoms Category Comments Cats Other has allergy to cats Your Problem List Problem Status Onset Comments Family History of Diabetes Mellitus Active Adhesion Pelvic Female Active Your Upcoming Appointments Date Time Location Provider No Appointments found Attention: Contact your local Clinic if further appointment detail needed. Your Goals/Additional instructions: Source: [facility] POWERCHART Document Id: [id number] LATOR TECHNICIAN Miscellaneous - Todd Aponte M.D. - 08/30/2014 2:12 PM CST Ambulatory Discharge Medication List [address] [id number] Visit Information Name: BARBRA GIMENEZ [facility] Number: [id number] Visit Date: 08/30/2014 14:12:47 Attending Provider: TODD APONTE MD Primary Care Provider: PCP, BARBRA CRAWLEY has been given the following list of medications: Your Medications It is important to take your medications as directed. Use a pill box or chart to help remind you to take your medications. Please let your doctor or nurse know if you have problems taking your medications. Medication/Strength How to Take Indications/Special Instructions/Comments/Notes for Patient Medication Changes/Routing etonogestrel (etonogestrel) Implant, once New multivitamin, ( Multivitamins oral tablet) 1 Tablet(s), Oral, once a day Stop Taking the Following Medications: medroxyPROGESTERone (Depo-Provera Contraceptive) Medication list as of 08-30-14 14:12 Attention: If you have any medications at [...] Electronically Signed By: TODD APONTE MD Signed On:30-AUG-2014 14:12:44 Additional Information: Source: [facility] POWERCHART Document Id: [id number] LATOR TECHNICIAN Miscellaneous - Kylee Crespo, L.P.N. - 08/30/2014 2:07 PM CST Adult Test Engineer Nuclear Equipment Intake/History Adult Test Engineer Nuclear Equipment Intake/History Entered On: 08/30/2014 14:11 INSULATOR TECHNICIAN Performed On: 08/30/2014 14:07 INSULATOR TECHNICIAN by KYLEE CRESPO LPN Intake Actual Weight : 92.4 kg(Converted to: 203 lb 11 oz) Weight Source : Standing scale Dosing Weight Clinic : 92.4 kg Clinic BSA : 1.96 Body Mass Index : 41.62 kg/m2 KYLEE CRESPO LPN - 08/30/2014 14:11 INSULATOR TECHNICIAN Chief Complaint : Nexplanon insertion LMP Date : 08/01/14 Peripheral Pulse Rate : 78 /min Systolic Blood Pressure : 120 mmHg Diastolic Blood Pressure : 72 mmHg NIBP Mean : 88 mmHg BP Location : Right upper extremity Blood Pressure Cuff Size : Regular Height : 149 cm(Converted to: 4 ft 11 inch(es), 59 inch(es)) KYLEE CRESPO LPN - 08/30/2014 14:07 INSULATOR TECHNICIAN General Info Information Given By : Patient Languages : [place] Is Patient Female and 13-50 no hysterectomy : Yes Status : Patient denies Are you ? : Yes KYLEE CRESPO LPN - 08/30/2014 14:07 INSULATOR TECHNICIAN Subjective Pain Symptoms : No KYLEE CRESPO LPN - 08/30/2014 14:07 INSULATOR TECHNICIAN Dependent Habits Tobacco Use/Currently Using : No Exposure to Tobacco Smoke : Lives with someone who smokes, Other: none Smoking Status : Never smoker KYLEE CRESPO [facility] - 08/30/2014 14:07 INSULATOR TECHNICIAN Caffeine Use Grid Caffeine Use : Current Type : Coffee Frequency : Daily KYLEE CRESPO LPN - 08/30/2014 14:07 INSULATOR TECHNICIAN ID Screen Travel Within Last 21 Days : No KYLEE CRESPO LPN - 08/30/2014 14:07 INSULATOR TECHNICIAN Source: [facility] [employer] Document Id: [id number] INSULATOR TECHNICIAN!7 LATOR TECHNICIAN documented in this encounter Plan of Treatment Not on filedocumented as of this encounter Visit Diagnoses Not on filedocumented in this encounter Additional Health Concerns Assessment Noted Time PHQ-9 Depression Total Score: 1 11/16/2012 11:45 AM CS T documented as of this encounter
--- OUTSIDE RECORDS SUMMARY | 2022-07-09 20:43 | XMS_ITS | Encounter Summary ---
:1990 Author Organization [facility] Address [address] [place] [address] Care Team Providers Name Role Phone Unavailable Primary Care Provider Unavailable Encounter Details Date Type Department Care Team Description 03/16/2014 Hospital Encounter HX NO MAPPING Matthew Aponte [...] do you attend jew or Never 2020 pentecostalism services? Do you [...]
--- OUTSIDE RECORDS SUMMARY | 2022-07-09 20:43 | XMS_ITS | Encounter Summary ---
:1990 Author Organization [facility] Address [address] [place] [address] Care Team Providers Name Role Phone Unavailable Primary Care Provider Unavailable Encounter Details Date Type Department Care Team Description 04/03/2014 Hospital Encounter HX NO MAPPING Purvi Gutierres Jr., M.D. [address] [place], [place] [phone] (Wo rk) Social History [...] do you attend mandaen or Never 2020 restoration services? Do you belong to any clubs [...]
--- OUTSIDE RECORDS SUMMARY | 2022-07-09 20:43 | XMS_ITS | Encounter Summary ---
:1990 Author Organization [facility] Address [address] [place] [address] Care Team Providers Name Role Phone Unavailable Primary Care Provider Unavailable Encounter Details Date Type Department Care Team Description 04/18/2014 Hospital Encounter HX [facility] Todd Dinero [...] you attend jehovah's witness or Never 2020 adventism services? Do you [...] Sign Reading Time Taken Comments Blood Pressure 108/60 04/18/2014 2:55 PM CDT Pulse - - Temperature - - Respiratory Rate - - Oxygen Saturation - - Inhaled Oxygen Concentration - - Weight 94 kg (207 lb 3.7 oz) 04/18/2014 2:55 PM CDT Height 149 cm (4' 10.66) 04/18/2014 2:55 PM CDT Body Mass Index 42.34 04/18/2014 2:55 PM CDT documented in this encounter Progress Notes Todd Aponte M.D. - 04/18/2014 2:50 PM CDT [id number] CHIEF COMPLAINT/REASON FOR VISIT Routine OB visit. HISTORY OF PRESENT ILLNESS This patient is a 23-year-old, G3, P2-0-0-2 female with LMP of 09/20/2013 and EDC of 06/27/2014 at 30 and 0/7 weeks. Patient presents for OB visit. She is doing well. She reports her cramping contractions have resolved. She was seen in Labor and Delivery 5 days ago with irregular contractions. She wasfound to have no contractions and no cervical change. She was sent home undelivered. She reports active movement. No leaking of fluid or vaginal bleeding. No further cramping or contractions. No headaches, vision changes. No depression symptoms. No difficulty urinating. ALLERGIES No known drug allergies. MEDICATIONS Generic vitamins. PAST MEDICAL/SURGICAL HISTORY PAST MEDICAL HISTORY: Obesity. History of GERD. Seasonal allergic rhinitis. History depression. History of overdose and suicide attempt. PAST SURGICAL HISTORY: 1. section 2009. 2. section 2012. PAST OBSTETRICAL HISTORY: 1. section 11/26/2009. 2. section 06/01/2013. SOCIAL HISTORY Patient is single. No tobacco, alcohol, or drug use. She was treated for chlamydia in 2012. No history of cervical dysplasia. No history of abuse. VITAL SIGNS Weight 94.0 kg, height 149 cm, blood pressure 108/60. PHYSICAL EXAMINATION GENERAL: Well-developed, well-nourished obese gravid female in no apparent distress. Alert and oriented times 3. Normal affect. ABDOMEN: Gravid, soft and nontender. Fundal height is 30 cm. Positive heart tones 146. Vertex presentation by Katie. Well healed Pfannenstiel skin incision. EXTREMITIES: No edema or tenderness. GENITAL: Deferred. DIAGNOSTICS 04/03/2014 urine culture no growth. 04/18/2014, 3 hour glucose tolerance test 72, 130, 131, 98, normal. IMPRESSION/REPORT/PLAN 1. Intrauterine at 30 and 0/7 weeks. Positive cardiac activity. 2. History of 2 prior sections. 3. Rubella nonimmune status. 4. Obesity. 5. Elevated diabetic screen with normal 3 hour glucose tolerance test. 6. Irregular uterine contractions with no cervical change. 7. History of depression, currently stable off medication. PLAN: 1. Reassurance given to the patient. She has had no cervical change on cervical exam. She has no current contractions. She declines cervical check today. 2. I reviewed 3 hour glucose tolerance test results with the patient which are normal. 3. I would like the patient follow up in 2 weeks for OB visit or be seen sooner. 4. Routine OB precautions, recommendations, instructions are reviewed with patient including movement and kick counts. 5. I recommend elective repeat section at term. 6. labor precautions reviewed with the patient. 7. I gave the patient a work note recommending that she take frequent breaks and avoid heavy liftinggreater 25 pounds. Also recommend that she be allowed to work up at the front of her work where she is able to sit more, this at the patient's request. 8. I spent 25 minutes in [id number] time with patient with over 50% of the time spent in counseling. Todd Aponte M.D./ruiz Electronically Signed By: TODD APONTE MD On: 04/18/2014 05:01 PM Source: [facility] MHSDOLBEYNONRADSYS Document Id: [id number] documented in this encounter Miscellaneous Notes Miscellaneous - Todd Aponte M.D. - 04/18/2014 3:14 PM CDT Ambulatory Patient Summary [address] [id number] Visit Information Name: BARBRA GIMENEZ [facility] Number: [id number] Current Date: 04/18/2014 15:14:33 Physicians Attending Provider: TODD APONTE MD Primary [...] the Following Medications: Medication list as of 04-18-14 15:14 Attention: If you have any medications at [...] Electronically Signed By: TODD APONTE MD Signed On:18-APR-2014 15:14:23 Your Allergies & Intolerances Substance Reaction Symptoms Category Comments Cats Other has allergy to cats Your Problem List Problem Status Onset Comments Family History of Diabetes Mellitus Active Mild Hyperemesis Gravidarum, Antepartum Condition or Complication Active 10/26/2012 Previous delivery, antepartum Active 10/27/2013 Your Upcoming Appointments Date Time Location Reason Provider 05/03/2014 14:30 [facility] DRAW FURNACE TENDER ob Todd Aponte MD Attention: Contact your local Clinic if further appointment detail needed. Your Goals/Additional instructions: Source: [facility] POWERCHART Document Id: [id number] Miscellaneous - Todd Aponte M.D. - 04/18/2014 3:14 PM CDT Ambulatory Discharge Medication List [address] [id number] Visit Information Name: BARBRA GIMENEZ [facility] Number: [id number] Visit Date: 04/18/2014 15:14:32 Attending Provider: TODD APONTE MD Primary Care [...] the Following Medications: Medication list as of 04-18-14 15:14 Attention: If you have any medications at [...] Electronically Signed By: TODD APONTE MD Signed On:18-APR-2014 15:14:23 Additional Information: Source: [facility] [employer]P [employer]ART Document Id: [id number] Miscellaneous - Todd Aponte M.D. - 04/18/2014 3:08 PM CDT Work Excuse 18 April 2014 BARBRA GIMENEZ [address] [facility] [address] Dear BARBRA GIMENEZ, You were examined in my office on: 04/18/2014 15:06 Reason for work excuse: Medical Illness ( x ) Yes ( _ ) No Injury ( _ ) Yes ( x ) No Is excused from all work: ( _ ) Yes ( x ) No Has work limitations: ( x ) Yes ( _ ) No As follows: No heavy lifting or strenous activity for the rest of the Limitations apply until: delivery Follow-Up Appointment : ( _ ) Return to Work date: Tomorrow Notes: This pateint is with an EDC 06/27/2014. She will need more rest in the . Please allow her to work in the front and not do the frequent walking and lifting for the rest of the . Sincerely, TODD APONTE [address] [place] [id number] Electronic Signature Electronically Signed By: TODD APONTE MD On: 18 April 2014 This document has images extracted. Source: [facility] POWERCHART Document Id: [id number] Miscellaneous - Nori Hong L.P.N. - 04/18/2014 2:55 PM CDT Adult Supervisor Poultry Farm Intake/History Adult Supervisor Poultry Farm Intake/History Entered On: 04/18/2014 14:57 CDT Performed On: 04/18/2014 14:55 CDT by NORI HONG Intake Chief Complaint : OB visit 30 weeks LMP Date : 09/20/2013 Systolic Blood Pressure : 108 mmHg Diastolic Blood Pressure : 60 mmHg NIBP Mean : 76 mmHg BP Location : Left upper extremity Blood Pressure Cuff Size : Regular Height : 149 cm(Converted to: 4 ft 11 inch(es), 59 inch(es)) Actual Weight : 94.0 kg(Converted to: 207 lb 4 oz) Weight Source : Standing scale Dosing Weight Clinic : 94 kg Clinic BSA : 1.97 Body Mass Index : 42.34 kg/m2 NORI HONG - 04/18/2014 14:55 CDT General Info Languages : Slovak NORI HONG - 04/18/2014 14:55 CDT Subjective Pain Symptoms : No NORI HONG - 04/18/2014 14:55 CDT Dependent Habits Tobacco Use/Currently Using : No Exposure to Tobacco Smoke : Lives with someone who smokes, Other: none Smoking Status : Never smoker NORI HONG - 04/18/2014 14:55 CDT Caffeine Use Grid Caffeine Use : Current Type : Coffee Frequency : Daily NORI HONG - 04/18/2014 14:55 CDT Source: [facility] POWERCHART Document Id: [id number] CDT!28 documented in this encounter Plan of Treatment Not on filedocumented as of this encounter Visit Diagnoses Not on filedocumented in this encounter Additional Health Concerns Assessment Noted Time PHQ-9 Depression Total Score: 1 11/16/2012 11:45 AM CS T documented as of this encounter
--- OUTSIDE RECORDS SUMMARY | 2022-07-09 20:43 | XMS_ITS | Encounter Summary ---
:1990 Author Organization [facility] Address [address] [place] [address] Care Team Providers Name Role Phone Unavailable Primary Care Provider Unavailable Encounter Details Date Type Department Care Team Description 05/25/2014 Hospital Encounter HX [facility] Todd Dinero [...] do you attend confucianism or Never 2020 taoism services? Do you belong to any clubs [...] - - Height 149 cm (4' 10.66) 05/25/2014 2:31 PM CDT Body Mass Index - - documented in this encounter Progress Notes Todd Aponte M.D. - 05/25/2014 2:30 PM CDT [id number] CHIEF COMPLAINT/REASON FOR VISIT Routine OB visit. HISTORY OF PRESENT ILLNESS This patient is a 23-year-old G3, P2-0-0-2 female with LMP of 09/20/2013 and EDC of 06/27/2014 at 35-2/7 weeks. The patient presents for OB visit and nonstress test. She has a complicated by a prior section x2, obesity, GERD, seasonal allergic rhinitis, history of depression, rubella nonimmune status, labor at 31 weeks this . The patient was given betamethasone x2 doses on 04/22/2014 and 04/23/2014. The patient has no complaints. She is doing well. She reports active movement. She denies cramping or contractions. No pelvic pressure. No low back pain. She reports no depression symptoms. No leaking of fluid or vaginal bleeding. No headaches or vision changes. ALLERGIES No known drug allergies. MEDICATIONS Generic vitamins. PAST MEDICAL/SURGICAL HISTORY PAST MEDICAL HISTORY: 1. Obesity. 2. GERD. 3. Seasonal allergic rhinitis. 4. Depression. 5. History of overdose and suicide attempt. PAST SURGICAL HISTORY: 1. section, 2009. 2. section, 2012. PAST OBSTETRICAL SURGICAL: 1. section, 11/26/2009, at 37-2/7 weeks. 2. section, 06/01/2013, at 39-1/7 week. VITAL SIGNS Weight 94.5 kg, blood pressure 122/80, repeat 124/74, pulse 72, respirations 18, temperature 36.8, height 149 cm. PHYSICAL EXAMINATION GENERAL: Well-developed, well-nourished gravid obese female in no apparent distress. Alert and oriented times 3. Normal affect. ABDOMEN: Gravid, soft, obese and nontender. Fundal height is 35 cm. Positive heart tones, 128 beats per minute. Vertex presentation by Katie. Well- healed Pfannenstiel skin incision. EXTREMITIES: No edema or tenderness. GENITAL: Cervix is 1 cm dilated, external cervical os. Internal cervical os is fingertip. Cervix is 3 cm thick, 0 station. Cephalic presentation confirmed. DIAGNOSTICS Nonstress test is performed. Please see separate form for details. IMPRESSION/REPORT/PLAN 1. Intrauterine at 35-2/7 weeks. Positive cardiac activity. 2. History of 2 prior sections. 3. Rubella nonimmune status. 4. labor at 31 weeks gestation. Patient was given betamethasone x2 doses on 04/22/2014 and 04/23/2014. 5. Obesity. 6. History of depression, currently stable off of medication. PLAN: 1. I reviewed nonstress test results showing a reassuring assessment with heart tones 120s with good variability, positive accelerations with no contractions. 2. Reassurance given to the patient. I reviewed the nonstress test results with the patient. The patient has no cervical change. 3. labor precautions are reviewed with the patient. 4. Routine OB precautions, recommendations, and instructions are reviewed with the patient, including movement and kick counts. 5. I recommend elective repeat section at term. This is scheduled at 39 weeks on 06/20/2014. I spent 30 minutes nvri-ry-jfgv time with the patient, with over 50% of that time spent in counseling. Todd Aponte M.D./ruiz Electronically Signed By: TODD APONTE MD On: 05/30/2014 08:17 AM Source: [facility] MHSDOLBEYNONRADSYS Document Id: [id number] documented in this encounter Procedure Notes Todd Aponte M.D. - 05/25/2014 12:00 AM CDT 2RPT DIAGNOSIS 1. A 23-year-old G3, P2-0-0-2 female at 35-2/7 weeks. 2. History of 2 prior sections. 3. labor with this . 4. Obesity. INDICATIONS FOR TEST 1. Intrauterine at 35-2/7 weeks. 2. History of labor with this . INTERPRETATION Reactive and reassuring assessment. HEART RATE BASELINE At 120's with good variability and positive accelerations up to 142 beats per minute. No decelerations. PERIODIC CHANGES Present. CONTRACTIONS None. RECOMMENDED FOLLOWUP One week as scheduled. I performed and interpreted the results of this testing. Todd Aponte M.D./ruiz Electronically Signed By: TODD APONTE MD On: 05/30/2014 08:18 AM Source: [facility] MHSDOLBEYNONRADSYS Document Id: [id number] documented in this encounter Miscellaneous Notes Miscellaneous - Todd Aponte M.D. - 05/25/2014 4:00 PM CDT Ambulatory Patient Summary [address] [id number] Visit Information Name: AMMYHIMANSHUBARBRAJOSEY MAYORGA [facility] Number: [id number] Current Date: 05/25/2014 16:00:46 Physicians Attending Provider: TODD APONTE MD Primary [...] the Following Medications: Medication list as of 05-25-14 16:00 Attention: If you have any medications at [...] Electronically Signed By: TODD APONTE MD Signed On:25-MAY-2014 16:00:43 Your Allergies & Intolerances Substance Reaction Symptoms Category Comments Cats Other has allergy to cats Your Problem List Problem Status Onset Comments Family History of Diabetes Mellitus Active Mild Hyperemesis Gravidarum, Antepartum Condition or Complication Active 10/26/2012 Previous delivery, antepartum Active 10/27/2013 Labor >22 Active Your Upcoming Appointments Date Time Location Provider 05/30/2014 14:00 [facility] CATHEAD OPERATOR Todd Aponte MD 06/06/2014 14:00 [facility] CATHEAD OPERATOR Todd Aponte MD 06/13/2014 14:30 [facility] CATHEAD OPERATOR Todd Aponte MD Attention: Contact your local Clinic if further appointment detail needed. Your Goals/Additional instructions: Source: [facility] PathfireCHART Document Id: [id number] Miscellaneous - Todd Aponte M.D. - 05/25/2014 4:00 PM CDT Ambulatory Discharge Medication List [address] [id number] Visit Information Name: HIMANSHU GIMENEZJOSEY MAYORGA [facility] Number: [id number] Visit Date: 05/25/2014 16:00:45 Attending Provider: TODD APONTE MD Primary Care [...] the Following Medications: Medication list as of 05-25-14 16:00 Attention: If you have any medications at [...] Electronically Signed By: TODD APONTE MD Signed On:25-MAY-2014 16:00:43 Additional Information: [facility] ServicesCH[facility] Document Id: [id number] documented in this encounter Plan of Treatment Not on filedocumented as of this encounter Visit Diagnoses Not on filedocumented in this encounter Additional Health Concerns Assessment Noted Time PHQ-9 Depression Total Score: 1 11/16/2012 11:45 AM CS T documented as of this encounter
--- OUTSIDE RECORDS SUMMARY | 2022-07-09 20:44 | XMS_ITS | Encounter Summary ---
:1990 Author Organization [facility] Address [address] [place] [address] Care Team Providers Name Role Phone Unavailable Primary Care Provider Unavailable Encounter Details Date Type Department Care Team Description 01/22/2014 Hospital Encounter HX [facility] Todd Dinero [...] or relatives? How often do you attend anabaptist or Never 2020 bahai services? Do you belong to any clubs or No 06/25/2021 organizations such as anabaptist groups, unions, fraternal or athletic groups, or [...] Sign Reading Time Taken Comments Blood Pressure 110/58 01/22/2014 2:34 PM CDT Pulse - - Temperature - - Respiratory Rate - - Oxygen Saturation - - Inhaled Oxygen Concentration - - Weight 89.9 kg (198 lb 3.1 oz) 01/22/2014 2:34 PM CDT Height - - Body Mass Index 40.49 11/23/2012 1:32 PM DANDY OPERATOR documented in this encounter Progress Notes Todd Aponte M.D. - 01/22/2014 2:27 PM CDT [id number] CHIEF COMPLAINT/REASON FOR VISIT Routine OB visit. HISTORY OF PRESENT ILLNESS This patient is a 23-year-old G3, P2-0-0-2 female with LMP of 09/20/2013, with EDC of 06/27/2014, at17-5/7 weeks. Patient presents for her first OB history and physical examination. She is doing well.She reports positive movement. She describes this as a fluttering sensation. Her nausea is improved but not resolved. No further emesis. No headaches, vision changes. No depression symptoms. No suicidal thoughts. No pain, cramping, tenderness, or discomfort. No leaking of fluid or vaginal bleeding. No difficulty urinating. No change in bowel habits. She is very excited to be . ALLERGIES No known drug allergies. MEDICATIONS Generic vitamins. PAST MEDICAL/SURGICAL HISTORY PAST MEDICAL HISTORY: 1. GERD, on no medication. 2. Obesity. 3. Seasonal allergic rhinitis, on no medication. 4. Depression, on no medication. 5. History of overdose and suicide attempt in the past. PAST SURGICAL HISTORY: 1. section, 2009. 2. section, 2012. PAST OBSTETRICAL HISTORY: 1. section, 11/26/2009, 37-2/7 weeks, male , 6 pounds 10 ounces, for nonreassuring assessment and arrest of dilation. 2. section, 06/01/2013, 39-1/7 weeks, male infant, 6 pounds 4 ounces, scheduled elective repeat section. SOCIAL HISTORY Patient is single. She has a new partner. She reports that he is involved in this . No alcohol, tobacco or drug use. No history of PID. History of chlamydia in 2013. She has a negative chlamydia test this . No history of cervical dysplasia. No history of abuse. FAMILY HISTORY Mother, father, maternal grandfather with diabetes. No history of congenital anomalies. No hypertension. No coronary artery disease. ADULT PREVENTIVE SERVICES Tobacco use: Denied. Pap smear: 01/02/2013. Chlamydia: 01/02/2014. Tetanus: 06/02/2013. Influenza: Declined. Gardasil immunization: Recommended be given . Depression: Denied. Asthma: Denied. VITAL SIGNS Weight 89.9 kg. Temperature 36.8, pulse 78, blood pressure 110/58. Height not performed. PHYSICAL EXAMINATION GENERAL: Obese, well-developed, well-nourished gravid female in no apparent distress. Alert and oriented times 3. Normal affect. LUNGS: Clear to auscultation bilaterally. Good inspiratory effort. HEART: Regular rate and rhythm without murmur. ABDOMEN: Obese, gravid, soft and nontender. Fundal height is not palpated. Positive [place] were auscultated at 160 beats per minute. Well-healed Pfannenstiel skin incision. EXTREMITIES: No edema or tenderness. GENITALIA: Exam declined by patient. DIAGNOSTICS 01/02/2014: Chlamydia negative. Gonorrhea negative. Pap smear negative for intraepithelial lesion ormalignancy. 01/22/2014: New OB labs are drawn; results are pending. IMPRESSION/REPORT/PLAN 1. Intrauterine at 17-5/7 weeks. Positive cardiac activity. 2. History of 2 prior sections. 3. Obesity. 4. History of depression, currently asymptomatic. PLAN: 1. New OB labs are drawn; these results are pending. 2. Routine OB precautions, recommendations, instructions are reviewed with patient including movement and kick counts. 3. Genetic testing discussed with the patient. Patient declines genetic testing. 4. I have recommended thepatient receive Gardasil immunization in the period. 5. I would like the patient to follow up in 3 to 4 weeks for OB visit or be seen sooner as needed. 6. Plan OB ultrasound for survey at 20 to 22 weeks. 7. Plan elective repeat section at term, as she has had 2 prior sections and no vaginal deliveries. 8. I spent 30 minutes cgih-qy-tywg time with the patient, with over 50% of time spent in counseling. Todd Aponte M.D./ruiz Electronically Signed By: TODD APONTE MD On: 01/24/2014 10:02 AM Source: [facility] MHSDOLBEYNONRADSYS Document Id: [id number] documented in this encounter Miscellaneous Notes Miscellaneous - Todd Aponte M.D. - 01/22/2014 3:39 PM CDT Ambulatory Patient Summary [address] [id number] Visit Information Name: BARBRA GIMENEZ [facility] Number: [id number] Current Date: 01/22/2014 15:39:28 Physicians Attending Provider: TODD APONTE MD Primary [...] the Following Medications: Medication list as of 01-22-14 15:39 Attention: If you have any medications at [...] Electronically Signed By: TODD APONTE MD Signed On:22-JAN-2014 15:39:23 Your Allergies & Intolerances Substance Reaction Symptoms Category Comments Cats Other has allergy to cats Your Problem List Problem Status Onset Comments Family History of Diabetes Mellitus Active Mild Hyperemesis Gravidarum, Antepartum Condition or Complication Active 10/26/2012 Previous delivery, antepartum Active 10/27/2013 Your Upcoming Appointments Date Time Location Reason Provider 02/16/2014 14:00 [facility] STAFF NURSE MIDWIFE ob, ob ultrasound Todd Aponte MD Attention: Contact your local Clinic if further appointment detail needed. Your Goals/Additional instructions: Source: [facility] POWERCHART Document Id: [id number] Miscellaneous - Todd Aponte M.D. - 01/22/2014 3:39 PM CDT Ambulatory Discharge Medication List [address] [id number] Visit Information Name: BARBRA GIMENEZ [facility] Number: [id number] Visit Date: 01/22/2014 15:39:27 Attending Provider: TODD APONTE MD Primary Care [...] the Following Medications: Medication list as of 01-22-14 15:39 Attention: If you have any medications at [...] Electronically Signed By: TODD APONTE MD Signed On:22-JAN-2014 15:39:23 Additional Information: Source: [facility] POWERCHART Document Id: [id number] Zaheer - Pia Maldonado L.P.NWander - 01/22/2014 2:34 PM CDT Adult Arbor Press Operator Intake/History Adult Arbor Press Operator Intake/History Entered On: 01/22/2014 14:37 CDT Performed On: 01/22/2014 14:34 CDT by PIA MALDONADO Chief Complaint : OB visit Temperature Core : 36.8 DegC(Converted to: 98.2 DegF) Systolic Blood Pressure : 110 mmHg Diastolic Blood Pressure : 58 mmHg NIBP Mean : 75 mmHg BP Location : Left upper extremity Blood Pressure Cuff Size : Regular Actual Weight : 89.9 kg(Converted to: 198 lb 3 oz) Weight Source : Standing scale Dosing Weight Clinic : 89.9 kg PIA MALDONADO - 01/22/2014 14:34 CDT General Info Information Given By : Patient Preferred Communication Mode : Verbal Languages : Vietnamese JESSEE MALDONADOAN - 01/22/2014 14:34 CDT Subjective Pain Symptoms : No PIA MALDONADO - 01/22/2014 14:34 CDT Dependent Habits Tobacco Use/Currently Using : No Tobacco Use/Last 12 months : No Exposure to Tobacco Smoke : Lives with someone who smokes, Other: none Smoking Status : Never smoker MALDNOADOPIA - 01/22/2014 14:34 CDT Caffeine Use Grid Caffeine Use : Current Type : Coffee Frequency : Daily MALDONADOPIA Traore - 01/22/2014 14:34 CDT [facility] Document Id: [id number]!28 documented in this encounter Plan of Treatment Not on filedocumented as of this encounter Procedures Procedure Name Priority Date/Time Associated Comments Diagnosis HXZZORDERS Routine 01/22/2014 2:50 PM Results f or this CDT procedure are i n the results section. ABO GROUPING, B Routine 01/22/2014 2:50 PM Result s for this CDT procedure are i n the results section. PROFILE II Routine 01/22/2014 2:50 PM Re sults for this WITHOUT CBC, B/SERUM CDT procedu re are in the results section. AUTOMATED Routine 01/22/2014 2:50 PM Results f or this DIFFERENTIAL, B CDT procedure ar e in the results section. 1,25-DIHYDROXYVITAMI Routine 01/22/2014 2:50 PM R esults for this N D, S CDT procedure are i n the results section. CBC WITH Routine 01/22/2014 2:50 PM Results f or this DIFFERENTIAL, B CDT procedure ar e in the results section. ANTIBODY SCREEN, B Routine 01/22/2014 2:50 PM Res ults for this CDT procedure are i n the results section. THYROID-STIMULATING Routine 01/22/2014 2:50 PM Re sults for this HORMONE-SENSITIVE CDT procedure are in (S-TSH) the results section. documented in this encounter Results Antibody Screen (01/22/2014 2:50 PM CDT) P athologist Signature Antibody Negative POWERCHART Screen Specimen (Source) Anatomical Collection Method Collection Time Re ceived Time Location / / Volume Laterality 01/22/2014 2:50 PM CDT Todd Aponte M.D. LAB BLOOD BANK TEST ORDERABL ES Performing Organization Address [facility] Phon e Number POWERCHART Grouping and Rh-Gerardo FLIP, see #[id number] (01/22/2014 2:50 PM CDT) [facility] gist Method Time Signature HX Grouping O Positive POWERCHART and Rh Specimen (Source) Anatomical Collection Method Collection Time Re ceived Time Location / / Volume Laterality 01/22/2014 2:50 PM CDT Todd Aponte M.D. LAB BLOOD BANK TEST ORDERABL ES Performing Organization Address [facility] Phon e Number POWERCHART (ABNORMAL) Automated Differential (01/22/2014 2:50 PM CDT) [facility] gist Method Time Signature Neutro % 72.5 (H) 34.0 - POWERCHART 71.1 Lymphocytes % 21.6 19.3 - POWERCHART 51.7 HX [place] % 5.1 4.7 - 12.5 POWERCHART HX Eos % 0.7 0.7 - 5.8 POWERCHART HX Baso % 0.1 0.1 - 1.2 POWERCHART Absolute 6.23 1.70 - POWERCHART Neutrophils 7.00 109L Lymphocytes 1.86 0.90 - POWERCHART 2.90 X109L Monocytes 0.44 0.30 - POWERCHART 0.90 X109L Eosinophils 0.06 0.05 - POWERCHART 0.50 X109L Absolute 0.01 0.00 - POWERCHART Basophil 0.30 X109L Specimen Anatomical Collection Method Collection Time Receive d Time (Source) Location / / Volume Laterality Blood 01/22/2014 2:50 PM 4 2:50 CDT PM CDT Todd Aponte M.D. LAB BLOOD ADD-ON Performing Organization Address [facility] Phon e Number POWERCHART CBC with Differential (01/22/2014 2:50 PM CDT) athologist Signature Leukocytes 8.6 3.4 - 10.5 POWERCHART X109L Erythrocytes 4.07 3.90 - POWERCHART 5.03 [id number] Hemoglobin 12.0 12.0 - POWERCHART 15.5 GDL Hematocrit 35.5 34.9 - POWERCHART 44.5 MCV 87.2 82.0 - POWERCHART 98.0 FL Platelet Count 267 150 - 450 POWERCHART X109L HX RDW 13.6 11.9 - POWERCHART 15.5 HXDifferential? Auto POWERCHART Specimen (Source) Anatomical Collection Method Collection Time Re ceived Time Location / / Volume Laterality Blood 01/22/2014 2:50 PM CDT Todd Aponte M.D. LAB BLOOD ADD-ON Performing Organization Address [facility] Phon e Number POWERCHART (ABNORMAL) 1,25-Dihydroxyvitamin D (01/22/2014 2:50 PM CDT) [facility] gist Method Time Signature 1, 25 95 (H) 18 - 78 POWERCHART DIHYDROXYVITAMIN D, PGML S Comment: Test Performed by: [place] [address] Sql Developer Dba: Humberto anna III, M.D. Specimen (Source) Anatomical Collection Method Collection Time Re ceived Time Location / / Volume Laterality Blood 01/22/2014 2:50 PM CDT Todd Aponte M.D. LAB BLOOD ADD-ON Performing Organization Address [facility] Phon e Number POWERCHART Thyroid-Stimulating Hormone-Sensitive (s-TSH) (01/22/2014 2:50 PM CDT) athologist Signature TSH, Sensitive 0.6 0.3 - 5.0 POWERCHART MIUL Comment: Test Performed by: [place] [address] Sql Developer Dba: Humberto anna III, M.D. Specimen (Source) Anatomical Collection Method Collection Time Re ceived Time Location / / Volume Laterality Blood 01/22/2014 2:50 PM CDT Todd Aponte M.D. LAB BLOOD ADD-ON Performing Organization Address [facility] Code Phon e Number POWERCHART Profile II without CBC/Serum (01/22/2014 2:50 PM CDT) athologist Signature HX Rubella Negative POWERCHART IgG-[place] Comment: -- REFERENCE VALUE -- Vaccinated: Positive (>=1.0 AI) Unvaccinated: Negative (<=0.7 AI) Rubella IgG Antibody Index 0.7 POW ERCHART Syphilis IgG Ab, S Negative Negative POWERCHART Comment: No serologic evidence of exposu re to syphilis. HBs Antigen, S Negative Negative POWERCHART Comment: Test Performed by: [facility] [address] [place] [address] Sql Developer Dba: Humberto anna III, M.D. Specimen (Source) Anatomical Collection Method Collection Time Re ceived Time Location / / Volume Laterality Blood 01/22/2014 2:50 PM CDT Todd Aponte M.D. LAB BLOOD NON ADD-ON Performing Organization Address [facility] Phon e Number POWERCHART HXZZORDERS (01/22/2014 2:50 PM CDT) athologist Signature HIV-1/-2 Negative Negative POWERCHART Antibody Comment: Negative result does not rule out HIV in fection. If acute HIV-1 infection is suspected in a high-r isk patient, submit plasma specimen for HIV-1 RNA quantifica tion test. If this test is ordered as a follow-up t est to a reactive rapid HIV antibody test result, suppleme ntal testing by Western blot is recommended, even when t his test result is negative. Testing is performed using the [employer] ros Anti-HIV 1+2 chemiluminescence immunoassay. Test Performed by: [facility] [address] [place] [address] Sql Developer Dba: Humberto anna III, M.D. Specimen (Source) Anatomical Collection Method Collection Time Re ceived Time Location / / Volume Laterality Blood 01/22/2014 2:50 PM CDT Todd Aponte M.D. LAB HISTORICAL ORDERS Performing Organization Address [facility] Code Phon e Number POWERCHART documented in this encounter Visit Diagnoses Not on filedocumented in this encounter Additional Health Concerns Assessment Noted Time PHQ-9 Depression Total Score: 1 11/16/2012 11:45 AM CS T documented as of this encounter
--- OUTSIDE RECORDS SUMMARY | 2022-07-09 20:44 | XMS_ITS | Encounter Summary ---
:1990 Author Organization [facility] Address [address] [place] [address] Care Team Providers Name Role Phone Unavailable Primary Care Provider Unavailable Encounter Details Date Type Department Care Team Description 05/11/2013 Hospital Encounter HX [facility] Todd Dinero [...] do you attend anabaptism or Never 2020 christianity services? Do you [...] Sign Reading Time Taken Comments Blood Pressure 122/68 05/11/2013 1:44 PM CDT Pulse - - Temperature - - Respiratory Rate - - Oxygen Saturation - - Inhaled Oxygen Concentration - - Weight 99.7 kg (219 lb 12.8 oz) 05/11/2013 1:44 PM CDT Height - - Body Mass Index 44.91 11/23/2012 1:32 PM RAIL WASHER documented in this encounter Progress Notes Todd Aponte M.D. - 05/11/2013 1:41 PM CDT [id number] CHIEF COMPLAINT/REASON FOR VISIT Routine OB visit HISTORY OF PRESENT ILLNESS This patient is a 22-year-old G2, P1-0-0-1 female with LMP of 08/31/2012, EDC of 06/07/2013 at 36-1/7 weeks. Patient presents for OB visit. She is doing well. She has no complaints. She reports good movement. No leaking of fluid or vaginal bleeding. No cramping or contractions. No headaches, vision changes. No depression symptoms. She is doing well and has no complaints. No fevers or chills. She reports active movement. CURRENT MEDICATIONS Generic vitamins. ALLERGIES No known drug allergies. PAST MEDICAL/SURGICAL HISTORY 1. GERD currently asymptomatic. 2. Depression currently asymptomatic. 3. History of overdose and suicide attempt currently asymptomatic. PAST SURGICAL HISTORY: section 2009. VITAL SIGNS WEIGHT: 99.7 kg. BLOOD PRESSURE: 122/68. PULSE: 74. HEIGHT: 149 cm. PHYSICAL EXAMINATION GENERAL: Well developed, well nourished gravid female in no apparent distress. Alert and oriented times 3. Normal affect. ABDOMEN: Gravid, soft and nontender. Fundal height is 36 cm. Positive heart tones 136. Vertex presentation by Darinel's. EXTREMITIES: No edema or tenderness. Genital exam declined by patient. LAB: 05/04/2013 GBS culture negative. IMPRESSION/REPORT/PLAN 1. Intrauterine at 36-1/7 weeks. Positive cardiac activity. 2. History of prior section. 3. History of chlamydia in on 10/05/2012 treated. 4. Rubella nonimmune status. 5. Obesity. 6. Dysuria of with normal urinalysis. 7. History of depression and suicide attempt. Currently asymptomatic. PLAN: 1. Follow up in 1 week for OB visit or be seen sooner as needed. 2. I would like to repeat section on 06/01/2013 at 39-1/7 week. 3. Routine OB precautions, recommendations and instructions are reviewed with patient including movement and kick counts. 4. Labor precautions are reviewed with patient. 5. I reviewed GBS culture results which are negative. 6. Encouraged the patient to continue with fluids and hydration. I discussed her history of dysuria.Her urinalyses have been normal. She denies any current dysuria. 7. I spent 25 minutes of [id number]-iq-eccm time with patient discussing her symptoms, performing examination and coordinating care. Todd Aponte M.D./lina Electronically Signed By: TODD APONTE MD On: 05/17/2013 10:10 AM Source: [facility] MHSDOLBEYNONRADSYS Document Id: [id number] documented in this encounter Miscellaneous Notes Miscellaneous - Todd Aponte M.D. - 05/11/2013 1:58 PM CDT Ambulatory [place] [address] Visit Information Name: BARBRA GIMENEZ [facility] Number: [id number] Current Date: 05/11/2013 13:58:09 Physicians Attending Provider: TODD APONTE MD Primary Care Provider: TODD APONTE MD Your Medications Here is a list of your medications. It is important to take your medications as directed. Use a pillbox or chart to help remind you to take your medications. Please let your doctor or nurse know if you have problems taking your medications. Medication/Strength Dose Route Frequency Indications/Special Instructions/Comments/Notes calcium-vitamin D (calcium (as carbonate)-vitamin D 600 mg-400 intl units oral tablet) 1 tab(s) Oralonce a day with meal with plenty of water acetaminophen (Tylenol 500 mg oral tablet) multivitamin, ( Multivitamins oral tablet) 1 tab(s) Oral once a day Attention: If you have any medications at home that are not on this list, DO NOT take them until youcontact your provider for clarification. Your Allergies & Intolerances Substance Reaction Symptoms Category Comments Cats Other has allergy to cats Your Problem List Problem Status Onset Comments Family History of Diabetes Mellitus Active Previous delivery, antepartum Active 10/05/2012 10/05/12 LMP 08/31/2012 Mild Hyperemesis Gravidarum, Antepartum Condition or Complication Active 10/26/2012 Your Upcoming Appointments Date Time Location Reason Provider 05/18/2013 13:30 [facility] FOCUSING MACHINE OPERATOR ob Todd Aponte MD 05/25/2013 13:30 [facility] FOCUSING MACHINE OPERATOR ob Todd Aponte MD Your Goals/Additional instructions: Source: [facility] POWERCHART Document Id: [id number] Zaheer - Todd Aponte M.D. - 05/11/2013 1:58 PM CDT Amb[place] [address] Visit Information Name: BARBRA GIMENEZ [facility] Number: [id number] Visit Date: 05/11/2013 13:58:08 Attending Provider: TODD APONTE MD Primary Care [...] medications. Medication/Strength Dose Route Frequency Indications/Special Instructions/Comments/Notes calcium-vitamin D (calcium (as carbonate)-vitamin D 600 mg-400 intl units oral tablet) 1 tab(s) Oralonce a day with meal with plenty of water acetaminophen (Tylenol 500 mg oral tablet) multivitamin, ( Multivitamins oral tablet) 1 tab(s) Oral once a day Attention: If you have any medications at home that are not on this list, DO NOT take them until youcontact your provider for clarification. Additional Information: Source: [facility] POWERCHART Document Id: [id number] Zaheer - Nori Hong L.P.N. - 05/11/2013 1:44 PM CDT Adult Casino Assistant Manager Intake/History Adult Casino Assistant Manager Intake/History Entered On: 05/11/2013 13:46 CDT Performed On: 05/11/2013 13:44 CDT by NORI HONG Intake Chief Complaint : OB visit 36 1/7 weeks c/o heartburn LMP Date : 08/31/2012 Systolic Blood Pressure : 122 mmHg Diastolic Blood Pressure : 68 mmHg NIBP Mean : 86 mmHg BP Location : Right upper extremity Blood Pressure Cuff Size : Regular Actual Weight : 99.7 kg(Converted to: 219 lb 13 oz) Weight Source : Standing scale Dosing Weight Clinic : 99.7 kg NORI HONG - 05/11/2013 13:44 CDT General Info Languages : Swedish NORI HONG - 05/11/2013 13:44 CDT Subjective Pain Symptoms : No NORI HONG - 05/11/2013 13:44 CDT Dependent Habits Tobacco Use/Currently Using : No Exposure to Tobacco Smoke : Lives with someone who smokes, Other: none Smoking Status : Never smoker NORI HONG - 05/11/2013 13:44 CDT Caffeine Use Grid Caffeine Use : Current Type : Coffee Frequency : Daily NORI HONG - 05/11/2013 13:44 CDT Source: [employer] Document Id: [id number] CDT!25 documented in this encounter Plan of Treatment Not on filedocumented as of this encounter Visit Diagnoses Not on filedocumented in this encounter Additional Health Concerns Assessment Noted Time PHQ-9 Depression Total Score: 1 11/16/2012 11:45 AM CS T documented as of this encounter
--- OUTSIDE RECORDS SUMMARY | 2022-07-09 20:44 | XMS_ITS | Encounter Summary ---
:1990 Author Organization [facility] Address [address] [place] [address] Care Team Providers Name Role Phone Unavailable Primary Care Provider Unavailable Encounter Details Date Type Department Care Team Description 07/28/2013 Hospital Encounter HX [facility] Justus Middleton M .D., M.H.A. [address] [facility] [place] [phone] (Wo rk) Social History Tobacco Use Types [...] do you attend pentecostalism or Never 2020 confucianist services? Do you [...] documented as of this encounter Progress Notes Justus Schaefer M.D. - 07/28/2013 4:00 PM CDT [id number] CHIEF COMPLAINT/REASON FOR VISIT Presenting for followup. HISTORY OF PRESENT ILLNESS Ms. Belle is a 23-year-old lady previously evaluated for incision dehiscence. We have collected cultures and microbiology revealed infection that is susceptible to Bactrim. I have started her on Bactrim. We did perform wound cleaning, debridement, and reapproximation. She presents today. Reports thather symptoms are improving. She is no more experiencing bleeding or drainage from the incision. Her pain is getting better. SYSTEMS REVIEW Otherwise negative. PAST MEDICAL/SURGICAL HISTORY PAST MEDICAL HISTORY: Reviewed and nonsignificant. PAST SURGICAL HISTORY: Notable for around 2 months ago. MEDICATIONS Reviewed. At this time, the patient has completed her Bactrim course. PHYSICAL EXAMINATION VITAL SIGNS: Temperature 76.7, respirations 16. Weight 89.9. GENERAL APPEARANCE: No acute distress. Well dressed, well groomed, well developed. PSYCH/NEURO: The patient is conscious, oriented, cooperative, has appropriate affect. ABDOMEN: Soft, nontender. No guarding. No rebound. Incision has significantly healed from the last evaluation. Appears to be adequately approximated. There is no evidence of any erythematous changes orsigns of infection. The 2 interrupted sutures are still present approximating the skin lines. IMPRESSION/REPORT/PLAN Ms. Belle is a 23-year-old lady who presents for wound dehiscence. At this time, there is marked improvement in the size of the defect since the last visit. The patient's symptoms have also been improving and given the culture showing infection I did advise that we renew her prescription and give her another 7 days of Bactrim. We will also have her recheck in 1 week. Also, the patient was complaining about hip pains today, mostly when she is moving when she tries to get in and out of the bed. The pain involves bilateral hip area. The patient has no urinary symptoms. No change in her gastrointestinal symptoms. At this time, we did discuss pelvic changes during /delivery, and I do expect her to be feeling much better now that she is 2 months post delivery. However, she is still having those pains so I did discuss with her being evaluated by Dr. Luther to assess for the need of any physical therapy treatment. The patient agreed to that. PLAN: 1. Refer to Dr. Luther for assessment of bilateral hip pain. 2. Patient is to follow up in 1 week for incision check. 3. We will renew her Bactrim for an additional week. Justus Schaefer M.D./ruiz Electronically Signed By: JUSTUS SCHAEFER MD On: 08/22/2013 09:41 AM Source: [facility] MHSDOLBEYNONRADSYS Document Id: [id number] LY CHAIN VICE PRESIDENT documented in this encounter Miscellaneous Notes Miscellaneous - Justus Schaefer M.D. - 07/28/2013 4:23 PM CDT Ambulatory Patient Summary [address] [place] [address] Visit Information Name: BARBRA GIMENEZ [facility] Number: [id number] Current Date: 07/28/2013 16:23:50 Physicians Attending Provider: JUSTUS SCHAEFER MD Primary Care Provider: TODD MCBRIDE MD BARBRA GIMENEZ has been given the [...] medications. Medication/Strength Dose Route Frequency Indications/Special Instructions/Comments/Notes sulfamethoxazole-trimethoprim (Bactrim DS 800 mg-160 mg oral tablet) 1 tab(s) Oral two times a day for 7 Days docusate (Colace 100 mg oral capsule) 100 mg Oral two times a day ibuprofen (ibuprofen 600 mg oral tablet) 600 mg Oral three times a day as needed for Pain Take with food ferrous sulfate (ferrous sulfate 325 mg (65 mg elemental iron) oral tablet) 325 mg Oral once a day calcium-vitamin D (calcium (as carbonate)-vitamin D 600 [...] Upcoming Appointments Date Time Location Reason Provider 08/04/2013 15:20 [facility] Justus Schaefer MD Attention: Contact your local Clinic if further appointment detail needed. Your Goals/Additional instructions: Source: [facility] POWERCHART Document Id: [id number] Miscellaneous - Justus Schaefer M.D. - 07/28/2013 4:23 PM CDT Ambulatory [place] [address] Visit Information Name: BARBRA GIMENEZ [facility] Number: [id number] Visit Date: 07/28/2013 16:23:49 Attending Provider: JUSTUS SCHAEFER MD Primary Care Provider: TODD MCBRIDE MD BARBRA GIMENEZ has been given the following list of medications: Your Medications It is important to take your medications as directed. Use a pill box or chart to help remind you to take your medications. Please let your doctor or nurse know if you have problems taking your medications. Medication/Strength Dose Route Frequency Indications/Special Instructions/Comments/Notes sulfamethoxazole-trimethoprim (Bactrim DS 800 mg-160 mg oral tablet) 1 tab(s) Oral two times a day for 7 Days docusate (Colace 100 mg oral capsule) 100 mg Oral two times a day ibuprofen (ibuprofen 600 mg oral tablet) 600 mg Oral three times a day as needed for Pain Take with food ferrous sulfate (ferrous sulfate 325 mg (65 mg elemental iron) oral tablet) 325 mg Oral once a day calcium-vitamin D (calcium (as carbonate)-vitamin D 600 [...] your provider for clarification. Additional Information: Source: [facility] [employer] Document Id: [id number] Miscellaneous - Sandra Zarate, C.M.A. - 07/28/2013 4:05 PM CDT Adult Zipper Ironer Intake/History Adult Zipper Ironer Intake/History Entered On: 07/28/2013 16:06 CDT Performed On: 07/28/2013 16:05 CDT by SANDRA ZARATE Intake Chief Complaint : Incision recheck Temperature Core : 36.7 DegC(Converted to: 98.1 DegF) SANDRA ZARATE - 07/28/2013 16:05 CDT General Info Information Given By : Patient Languages : [place] SANDRA ZARATE - 07/28/2013 16:05 CDT Subjective Pain Symptoms : Yes SANDRA ZARATE - 07/28/2013 16:05 CDT Pain Pain Assessment Grid Pain 1 Location : Other: thighs and hips and around groin area are painful Laterality : Bilateral Intensity : 8 SANDRA ZARATE - 07/28/2013 16:05 CDT Dependent Habits Tobacco Use/Currently Using : No Tobacco Use/Advised to Quit : No Exposure to Tobacco Smoke : Lives with someone who smokes, Other: none Smoking Status : Never smoker SANDRA ZARTAE - 07/28/2013 16:05 CDT Caffeine Use Grid Caffeine Use : Current Type : Coffee Frequency : Daily SANDRA ZARATE - 07/28/2013 16:05 CDT Source: [facility] [employer] Document Id: [id number] CDT!25 documented in this encounter Plan of Treatment Not on filedocumented as of this encounter Visit Diagnoses Not on filedocumented in this encounter Additional Health Concerns Assessment Noted Time PHQ-9 Depression Total Score: 1 11/16/2012 11:45 AM CS T documented as of this encounter
--- OUTSIDE RECORDS SUMMARY | 2022-07-09 20:44 | XMS_ITS | Encounter Summary ---
:1990 Author Organization [facility] Address [address] [place] [address] Care Team Providers Name Role Phone Unavailable Primary Care Provider Unavailable Encounter Details Date Type Department Care Team Description 11/09/2013 Hospital Encounter HX [facility] Todd Dinero [...] or relatives? How often do you attend alevism or Never 2020 mandaen services? Do you belong to any clubs or No 06/25/2021 organizations such as alevism groups, unions, fraternal or athletic groups, or [...] Sign Reading Time Taken Comments Blood Pressure 122/70 11/09/2013 2:11 PM [facility] OFFICIAL Pulse - - Temperature - - Respiratory Rate - - Oxygen Saturation - - Inhaled Oxygen Concentration - - Weight 91.4 kg (201 lb 8 oz) 11/09/2013 2:11 PM [facility] OFFICIAL Height - - Body Mass Index 41.17 11/23/2012 1:32 PM [facility] OFFICIAL documented in this encounter Progress Notes Todd Aponte M.D. - 11/09/2013 2:06 PM CST [id number] CHIEF COMPLAINT/REASON FOR VISIT Routine OB visit. HISTORY OF PRESENT ILLNESS This patient is a 23-year-old G3, P2-0-0-2 female with LMP of 09/20/2013 and EDC 06/27/2014 at 7-1/7weeks. The patient presents for OB visit and OB ultrasound. She is doing well. She continues to havesome mild morning nausea but denies emesis. No change in bowel habits. No difficulty urinating. No vaginal itching, irritation or discharge. No vaginal bleeding. No pain, cramping, tenderness, or discomfort. No headaches or vision changes. No depression symptoms. She is very excited to be . She has a new partner and reports that he is going to support her during this . ALLERGIES No known drug allergies. MEDICATIONS None. PAST MEDICAL / SURGICAL HISTORY 1. GERD; on no medication. 2. Obesity. 3. Seasonal allergic rhinitis; no medication. 4. Depression; on no medication. 5. History of overdose and suicide attempt; on no medication. Surgical history: 1. section 2009. 2. section 2012. Obstetric history: 1. section 11/26/2009. 2. section 06/01/2013. SOCIAL HISTORY The patient is single. She reports a new partner for this . She denies alcohol, tobacco or drug use. No history of PID. She was treated for chlamydia September2012. No history of cervical dysplasia. No history of abuse. FAMILY HISTORY Mother, father and maternal grandfather with diabetes. No congenital anomalies. No hypertension. No coronary artery disease. ADULT PREVENTATIVE SERVICES: Tobacco use: None Pap smear: Recommend this be done at OB history and physical examination. Chlamydia: 10/27/2013. Lipid panel: Not indicated due to age. Gardasil: Recommended after . Tetanus booster: Recommend after 20 weeks. Influenza: Recommended; patient declined. Depression: Denied. Asthma: Denied. VITAL SIGNS WEIGHT: 91.4 kg BLOOD PRESSURE: 122/70 PULSE: 68 RESPIRATION: 18 HEIGHT: Not performed. PHYSICAL EXAMINATION GENERAL: Well-developed, well-nourished obese female in no apparent stress. Alert and oriented x3. ABDOMEN: Soft, obese, nontender and nondistended. Positive bowel sounds. Fundus not palpated. Negative Doptones. EXTREMITIES: No clubbing, cyanosis or edema. Nontender bilaterally. GENITAL EXAM: Normal external female genitalia. Normal BSU. Normal multiparous cervical os. No cervical motion tenderness. Cervix is closed and 4 cm thick. Uterus is 6 to 8 weeks size, midposition, andmobile. Exam limited by body habitus. No adnexal masses or tenderness. Exam limited by body habitus. PROCEDURE: An obstetrical ultrasound was performed revealing an intrauterine at 6-0/7 weeks. [place]-rump length is measured at 0.35 cm, which is 6- 0/7 weeks. Cardiac activity visualized and measuring at 119 beats per minute. This gives an EDC of 07/05/2014. Yolk-sac is seen. Cervix closed and3.5 cm thick. No adnexal masses. No free fluid. Please see separate report for details. IMPRESSION/REPORT/PLAN 1. at 7 weeks 1 day. Positive cardiac activity on ultrasound. 2. History of 2 prior sections. 3. Nursing. 4. Obesity. 5. History of depression, currently asymptomatic. PLAN 1. I reviewed OB ultrasound results with the patient. This shows an intrauterine at 6 weeks. [place]-rump length was measured at 0.35 cm, which is 6-0/7 weeks. Cardiac activity seen at 119 beats per minute. This gives an EDC of 07/05/2014. The cervix was closed and thick. No myometrial masses.No adnexal masses. I reviewed with the patient that it appears that she has an earlier gestation, but because of how small this is, I recommended not changing her dates at this time. I would like to repeat an ultrasound in 3 weeks to reassess. If the is still 1 week off, then I would recommend changing her due date at that time. She agrees with this course of action. 2. Symptomatic relief measures for nausea and vomiting in were discussed with the patient. 3. I discussed her nursing in . She just had a vaginal delivery in 2012 and is still nursing. I discussed the risks, benefits and alternatives of nursing while . 4. I strongly encouraged the patient to start vitamins. She is and she is also nursing. She declines a prescription. 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 5. Routine OB precautions, recommendations, and instructions were reviewed with the patient. 6. I would like the patient to follow up in 3 weeks for OB visit and OB ultrasound or be seen sooneras needed. 7. I recommend we check new OB labs at first OB history and physical examination. 8. I recommend Adacel immunization after 20 weeks. 9. I recommend influenza immunization, but the patient declined. 10. I recommend Gardasil immunizations . 11. I spent over 25 minutes with the patient with 50% of that time spent in counseling. I reviewed the patient's symptoms, performed examination and coordinated care. Todd Aponte M.D./deion Electronically Signed By: TODD APONTE MD On: 11/10/2013 03:02 PM Source: [facility] [email or web address] Document Id: [id number] [facility] OFFICIAL documented in this encounter Miscellaneous Notes Miscellaneous - Todd Aponte M.D. - 11/09/2013 2:53 PM CST Ambulatory [place] [address] Visit Information Name: BARBRA GIMENEZ MUKESH [facility] Number: [phone] Current Date: 11/09/2013 14:53:29 Physicians Attending Provider: TODD APONTE MD Primary [...] Take Indications/Special Instructions/Comments/Notes for Patient Medication Changes/Routing No Medications found Stop Taking the Following Medications: Medication list as of 11-09-13 14:53 Attention: If you have any medications at home that are not on this list, DO NOT take them until youcontact your provider for clarification. Give a copy of your medication list to your primary care provider. Update your medication list any time medications or doses are changed and carry your medication list at all times in case of emergency. Your Allergies & Intolerances Substance Reaction Symptoms Category Comments Cats Other has allergy to cats Your Problem List Problem Status Onset Comments Family History of Diabetes Mellitus Active Mild Hyperemesis Gravidarum, Antepartum Condition or Complication Active 10/26/2012 Previous delivery, antepartum Active 10/27/2013 Your Upcoming Appointments Date Time Location Reason Provider 12/01/2013 14:00 [facility] REHABILITATION SERVICES MANAGER ob, ob ultrasound Todd Aponte MD Attention: Contact your local Clinic if further appointment detail needed. Your Goals/Additional instructions: Source: [employer] Document Id: [id number] [facility] OFFICIAL Miscellaneous - Todd Aponte M.D. - 11/09/2013 2:53 PM CST Ambulatory [place] [address] Visit Information Name: AMMY BARBRA MAYORGA [facility] Number: [phone] Visit Date: 11/09/2013 14:53:28 Attending Provider: TODD APONTE MD Primary Care [...] Take Indications/Special Instructions/Comments/Notes for Patient Medication Changes/Routing No Medications found Stop Taking the Following Medications: Medication list as of 11-09-13 14:53 Attention: If you have any medications at home that are not on this list, DO NOT take them until youcontact your provider for clarification. Give a copy of your medication list to your primary care provider. Update your medication list any time medications or doses are changed and carry your medication list at all times in case of emergency. Additional Information: Source: [employer] Document Id: [id number] [facility] OFFICIAL Miscellaneous - Nori Hong LWanderPWanderN. - 11/09/2013 2:11 PM CST Adult White Washer Piler Intake/History Adult White Washer Piler Intake/History Entered On: 11/09/2013 14:12 [facility] OFF[facility]IAL Performed On: 11/09/2013 14:11 [facility] OFFICIAL by NORI HONG Intake Chief Complaint : OB visit US 7 1/ weeks Systolic Blood Pressure : 122 mmHg Diastolic Blood Pressure : 70 mmHg NIBP Mean : 87 mmHg BP Location : Left upper extremity Blood Pressure Cuff Size : Regular Actual Weight : 91.4 kg(Converted to: 201 lb 8 oz) Weight Source : Standing scale Dosing Weight Clinic : 91.4 kg NORI HONG - 11/09/2013 14:11 [facility] OFFICIAL General Info Languages : Armenian NORI HONG - 11/09/2013 14:11 [facility] OFFICIAL Subjective Pain Symptoms : No NORI HONG - 11/09/2013 14:11 [facility] OFFICIAL Dependent Habits Tobacco Use/Currently Using : No Exposure to Tobacco Smoke : Lives with someone who smokes, Other: none Smoking Status : Never smoker NORI HONG - 11/09/2013 14:11 [facility] OFFICIAL Caffeine Use Grid Caffeine Use : Current Type : Coffee Frequency : Daily NORI HONG - 11/09/2013 14:11 [facility] OFF[facility]IAL Source: [employer] Document Id: [id number] [facility] OFFICIAL!24 [facility] OFFICIAL documented in this encounter Plan of Treatment Not on filedocumented as of this encounter Visit Diagnoses Not on filedocumented in this encounter Additional Health Concerns Assessment Noted Time PHQ-9 Depression Total Score: 1 11/16/2012 11:45 AM CS T documented as of this encounter
--- OUTSIDE RECORDS SUMMARY | 2022-07-09 20:44 | XMS_ITS | Encounter Summary ---
:1990 Author Organization [facility] Address [address] [place] [address] Care Team Providers Name Role Phone Unavailable Primary Care Provider Unavailable Encounter Details Date Type Department Care Team Description 02/15/2013 Hospital Encounter HX [facility] Todd Dinero [...] or relatives? How often do you attend congregational or Never 2020 restorationism services? 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 - 02/15/2013 8:02 AM CDT [id number] CHIEF COMPLAINT/REASON FOR VISIT Routine OB visit HISTORY OF PRESENT ILLNESS This patient is a 22-year-old female with LMP 08/31/2012. EDC 06/07/2013 at 24-0/7 weeks who presents for OB visit. She is doing well. She has no complaints. She reports good movement. No leaking of fluid, vaginal bleeding. No cramping or contractions. No headaches, vision changes. No de pression symptoms. No difficulty with urination. CURRENT MEDICATIONS Generic vitamins. ALLERGIES No known drug allergies. PAST MEDICAL/SURGICAL HISTORY 1. History of GERD currently asymptomatic 2. History of depression currently asymptomatic 3. History of overdose, suicide attempt currently asymptomatic. Past Surgical History section 2009. VITAL SIGNS WEIGHT 92.9 kg. BLOOD PRESSURE: 100/60. PULSE 70. HEIGHT: 149 cm. PHYSICAL EXAMINATION GENERAL: Well developed, well nourished gravid female in no apparent distress. Alert and oriented times 3. Normal affect. ABDOMEN: Gravid, soft and nontender. Fundal height 24 cm, positive heart tones 160. EXTREMITIES: No edema or tenderness. GENITALIA: Genital exam deferred. IMPRESSION/REPORT/PLAN 1. Intrauterine at 24-0/7 weeks. Positive cardiac activity. 2. History of prior section. 3. History of chlamydia in 10/05/2012 treated. 4. Rubella nonimmune status. 5. Obesity. 6. History of depression, suicide attempt currently asymptomatic. Plan 1. Routine OB precautions, recommendations and instructions are reviewed with the patient. 2. Follow up in 3-4 weeks for OB visit or be seen sooner p.r.n. 3. Glucola with instructions are given to the patient. We will check diabetic screen at the next visit. 4. Routine depression precautions reviewed with the patient. 5. Recommend elective repeat section at term. 6. Routine OB precautions, recommendations and instructions are reviewed with patient including movement and kick counts. Todd Apotne M.D./andrews Electronically Signed By: TODD APONTE MD On: 02/16/2013 02:53 PM Source: [facility] [email or web address] Document Id: [id number] documented in this encounter Miscellaneous Notes Miscellaneous - Todd Aponte M.D. - 02/15/2013 12:36 PM CDT Ambulatory Patient Summary [address] [address] Visit Information Name: BARBRA GIMENEZ [facility] Number: [id number] Current Date: 02/15/2013 12:36:39 Physicians Attending Provider: TODD APONTE MD Primary Care Provider: TODD APONTE MD Your Medications Here is a list of your medications. It is important to take your medications as directed. Use a pillbox or chart to help remind you to take your medications. Please let your doctor or nurse know if you have problems taking your medications. 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 - 02/15/2013 12:36 PM CDT Ambulatory Depart Summary [address] [address] Visit Information Name: BARBRA GIMENEZ [facility] Number: [phone] Visit Date: 02/15/2013 12:36:39 Attending Provider: TODD APONTE MD Primary Care [...] your medications. Medication/Strength Dose Route Frequency Indications/Special Instructions/Comments calcium-vitamin D (calcium (as carbonate)-vitamin D 600 [...] your provider for clarification. Additional Information: Source: [facility] POWERCHART Document Id: [id number] Miscellaneous - Nori Hong, L.P.N. 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 Service Manager Intake/History Adult Food And Beverage Service Manager Intake/History Entered On: 02/15/2013 8:08 CDT Performed On: 02/15/2013 8:07 CDT by NORI HONG Intake Chief Complaint : OB visit 24 weeks LMP Date : N/A Systolic Blood Pressure : 100 mmHg Diastolic Blood Pressure : 60 mmHg NIBP Mean : 73 mmHg BP Location : Right upper extremity Blood Pressure Cuff Size : Regular Actual Weight : 92.9 kg(Converted to: 204 lb 13 oz) Weight Source : Standing scale Dosing Weight Clinic : 92.9 kg NORI HONG - 02/15/2013 8:07 CDT General Info Languages : Macedonian NORI HONG - 02/15/2013 8:07 CDT Subjective Pain Symptoms : No NORI HONG - 02/15/2013 8:07 CDT Dependent Habits Tobacco Use/Currently Using : No Exposure to Tobacco Smoke : Lives with someone who smokes, Other: none Smoking Status : Never smoker NORI HONG - 02/15/2013 8:07 CDT Caffeine Use Grid Caffeine Use : Current Type : Coffee Frequency : Daily NORI HONG - 02/15/2013 8:07 CDT Source: [employer] Document Id: [id number] CDT!25 documented in this encounter Plan of Treatment Not on filedocumented as of this encounter Visit Diagnoses Not on filedocumented in this encounter Additional Health Concerns Assessment Noted Time PHQ-9 Depression Total Score: 1 11/16/2012 11:45 AM CS T documented as of this encounter
--- OUTSIDE RECORDS SUMMARY | 2022-07-09 20:44 | XMS_ITS | Encounter Summary ---
:1990 Author Organization [facility] Address [address] [place] [address] Care Team Providers Name Role Phone Unavailable Primary Care Provider Unavailable Encounter Details Date Type Department Care Team Description 12/14/2013 Hospital Encounter HX NO MAPPING Anup Galo M.D. [address] [place], [place] [phone] (Wo rk) Social History [...] or relatives? How often do you attend religion or Never 2020 anabaptism services? Do you belong to any clubs or No 06/25/2021 organizations such as religion groups, unions, fraternal or athletic groups, or [...]
--- OUTSIDE RECORDS SUMMARY | 2022-07-09 20:44 | XMS_ITS | Encounter Summary ---
:1990 Author Organization [facility] Address [address] [place] [address] Care Team Providers Name Role Phone Unavailable Primary Care Provider Unavailable Encounter Details Date Type Department Care Team Description 06/15/2013 Hospital Encounter [facility]X [facility] Todd Dinero [...] or relatives? How often do you attend temple or Never 2020 episcopal services? 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 - 06/15/2013 12:51 PM CDT [id number] CHIEF COMPLAINT/REASON FOR VISIT Postop visit. HISTORY OF PRESENT ILLNESS This patient is a 22-year-old G2, P2-0-0-2 female who presents for postop visit. She had a repeat section on 06/01/2013 delivering a viable male infant. She is doing well. She is nursing exclusively without difficulty. She has minimal lochia, but has not resolved. No pain, cramping, tenderness or discomfort. She is still taking an occasional ibuprofen and Tylenol. No vaginal itching, irritation or discharge, other than the lochia. No change in bowel habits. No difficulty urinating. No fevers or chills. No headaches or vision changes. No depression symptoms. CURRENT MEDICATIONS 1. Generic vitamins. 2. Tylenol as needed. 3. Ibuprofen as needed. 4. Colace 100 mg by mouth two times a day. 5. Zyrtec 10 mg by mouth daily. ALLERGIES No known drug allergies. PAST MEDICAL/SURGICAL HISTORY 1. GERD. 2. Seasonal allergic rhinitis. 3. History of depression, currently asymptomatic. 4. History of overdose on suicide attempt, currently asymptomatic. PAST MEDICAL/SURGICAL HISTORY 1. section, 2009. 2. section, 06/01/2013. PAST OBSTETRIC HISTORY 1. section, 11/26/2009. 2. section, 06/01/2013. SOCIAL HISTORY The patient is single. The father of the baby is not involved. She denies alcohol, tobacco or drug use. She denies history of PID. She was treated for chlamydia in September 2012. No history of cervical dysplasia. No history of abuse. FAMILY HISTORY Mother, father, maternal grandfather with diabetes. No congenital anomalies. No hypertension. No coronary artery disease. ADULT PREVENTIVE SERVICES Tobacco use: None. Pap smear: Not indicated due to age. Chlamydia: 11/23/2012. Lipid panel: Not indicated due to age. Gardasil: Recommended, this will be given . Tetanus booster: Recommend this be given. Depression: Denied. Asthma: Denied. VITAL SIGNS WEIGHT: 90.8 kg. TEMPERATURE: 37.3. PULSE: 76. RESPIRATIONS: 16. BLOOD PRESSURE: 116/64. PHYSICAL EXAMINATION GENERAL: Well-developed, well-nourished, obese female, in no apparent distress. Alert and oriented x3. ABDOMEN: Soft, obese, nontender, nondistended. Positive bowel sounds. Fundus firm and nontender, 4 cm below umbilicus. Incision clean, dry and intact without erythema. No signs of infection. EXTREMITIES: No clubbing, cyanosis or edema, nontender bilaterally. Genital exam deferred. IMPRESSION/REPORT/PLAN 1. Normal postop visit, status-post repeat section, 06/01/2013. 2. Nursing. 3. Seasonal allergic rhinitis on medication. 4. History of depression, currently asymptomatic. PLAN 1. I would like the patient to followup in 4 weeks for visit or be seen sooner as needed. 2. Nursing is encouraged. 3. Routine postop and precautions, recommendations and instructions are reviewed with thepatient. 4. I gave the patient a return to work note recommending that she be off work for recovery through July 16, 2013. 5. I would be happy to see the patient as needed. 6. Contraception options are discussed with the patient, the patient is undecided. I recommend she remain abstinent until she on reliable contraception. Todd Aponte M.D./ryan Electronically Signed By: TODD APONTE MD On: 06/16/2013 02:52 PM Source: [facility] Document Id: [id number] Todd Aponte M.D. - 06/15/2013 12:51 PM CDT [id number] Mrs. Chun no-showed her appointment in the [facility] today. Todd Aponte M.D./bhakti Electronically Signed By: TODD APONTE MD On: 06/28/2013 08:24 AM Source: [facility] Document Id: [id number] documented in this encounter Miscellaneous Notes Miscellaneous - Todd Aponte M.D. - 06/15/2013 1:54 PM CDT Ambulatory Patient Summary [address] [address] Visit Information Name: NORAH CHUN [facility] Number: [id number] Current Date: 06/15/2013 13:54:55 Physicians Attending Provider: TODD APONTE MD Primary Care Provider: TODD APONTE MD Your Medications Here is a list of your medications. It is important to take your medications as directed. Use a pillbox or chart to help remind you to take your medications. Please let your doctor or nurse know if you have problems taking your medications. Medication/Strength Dose Route Frequency Indications/Special Instructions/Comments/Notes docusate (Colace 100 mg oral capsule) 100 [...] Upcoming Appointments Date Time Location Reason Provider 07/13/2013 13:50 [facility]PER[facility] post-op Todd Aponte MD Your Goals/Additional instructions: Source: [facility] POWERCHART Document Id: [id number] AT Todd Borja M.D. - 06/15/2013 1:54 PM CDT Ambulatory Depart Summary [facility] [address] [place] Visit Information Name: AMMY NORAH MAYORGA [facility] Number: [id number] Visit Date: 06/15/2013 13:54:54 Attending Provider: TODD APONTE MD Primary Care Provider: TODD APONTE MD AMMYNORAH MUKEHS has been given the following list of medications: Your Medications It is important to take your medications as directed. Use a pill box or chart to help remind you to take your medications. Please let your doctor or nurse know if you have problems taking your medications. Medication/Strength Dose Route Frequency Indications/Special Instructions/Comments/Notes docusate (Colace 100 mg oral capsule) 100 [...] your provider for clarification. Additional Information: Source: [facility] POWERCHART Document Id: [id number] Todd Birmingham M.D. - 06/15/2013 1:07 PM CDT Work Excuse 15 June 2013 NORAH CHUN [address] [facility] [address] Dear NORAH CHUN, You were examined in my office on: 06/15/2013 Reason for work excuse: Medical Illness ( x_ ) Yes ( _ ) No Injury ( _ ) Yes ( x_ ) No Is excused from all work: ( x_ ) Yes ( _ ) No Has work limitations: ( x_ ) Yes ( _ ) No As follows: No work until after post-operative recovery period_ Limitations apply until: 07/16/2013_ Follow-Up Appointment : ( 07/13/2013_ ) Return to Work date: 07/17/2013_ Notes: This pateint had a section delivery on 06/01/2013. She will need to be off work for post- and post-operative recovery through 07/16/2013._ Sincerely, TODD APONTE [address] [place] [address] Electronic Signature Electronically Signed By: TODD APONTE MD On: 15 June 2013 This document has images extracted. Source: [facility] POWERCHART Document Id: [id number] Electronically signed by [facility] Steam Table Attendant [id number] at 02/24/2017 10:57 PM CDT Miscellaneous - Alden Hong, L.P.N. 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 Intake/History Entered On: 06/15/2013 12:58 CDT Performed On: 06/15/2013 12:56 CDT by ALDEN HONG Intake Chief Complaint : post op Temperature Core : 37.3 DegC(Converted to: 99.1 DegF) Peripheral Pulse Rate : 76 /min Respiratory Rate : 16 /min Heart Rhythm : Regular Systolic Blood Pressure : 116 mmHg Diastolic Blood Pressure : 64 mmHg NIBP Mean : 81 mmHg BP Location : Right upper extremity Blood Pressure Cuff Size : Regular Actual Weight : 90.8 kg(Converted to: 200 lb 3 oz) Weight Source : Standing scale Dosing Weight Clinic : 90.8 kg ALDEN HONG - 06/15/2013 12:56 CDT General Info Languages : Serbian ALDEN HONG - 06/15/2013 12:56 CDT Subjective Pain Symptoms : No ALDEN HONG - 06/15/2013 12:56 CDT Dependent Habits Tobacco Use/Currently Using : No Exposure to Tobacco Smoke : Lives with someone who smokes, Other: none Smoking Status : Never smoker ALDEN HONG - 06/15/2013 12:56 CDT Caffeine Use Grid Caffeine Use : Current Type : Coffee Frequency : Daily ALDEN HONG - 06/15/2013 12:56 CDT Source: [employer] Document Id: [id number] CDT!28 documented in this encounter Plan of Treatment Not on filedocumented as of this encounter Visit Diagnoses Not on filedocumented in this encounter Additional Health Concerns Assessment Noted Time PHQ-9 Depression Total Score: 1 11/16/2012 11:45 AM CS T documented as of this encounter
--- OUTSIDE RECORDS SUMMARY | 2022-07-09 20:44 | XMS_ITS | Encounter Summary ---
:1990 Author Organization [facility] Address [address] [place] [address] Care Team Providers Name Role Phone Unavailable Primary Care Provider Unavailable Encounter Details Date Type Department Care Team Description 03/22/2013 Hospital Encounter [facility]X [facility] Matthew Aponte M.D . Social History Tobacco Use [...] do you attend mormon or Never 2020 buddhist services? Do you belong to any clubs [...] Comme nts GLUCOSE TRACE, 3 HR, Routine 03/22/2013 11:52 AM Re sults for this S/P CDT procedure are i n the results section. ORAL GLUCOSE Routine 03/22/2013 10:47 AM Results for this TOLERANCE, CDT procedure are i n NON-GESTATIONAL, 2 the resul ts HOUR, section. GLUCOSE TRACE, 1HR, Routine 03/22/2013 9:50 AM Resu lts for this S/P CDT procedure are i n the results section. GLUCOSE TRACE, 3 HR, Routine 03/22/2013 8:54 AM Res ults for this S/P CDT procedure are i n the results section. documented in this encounter Results Glucose Tolerance, 3 Hours (03/22/2013 11:52 AM CDT) P athologist Signature HXGluc 3 Hr 107 70 - 139 POWERCHART MGDL Specimen (Source) Anatomical Collection Method Collection Time Re ceived Time Location / / Volume Laterality Blood 03/22/2013 11:52 AM CDT Matthew Aponte M.D. LAB BLOOD NON ADD-ON Performing Organization Address City/State/ZIP Code Phon e Number POWERCHART Oral Glucose Tolerance, Non-Gestational, 2 Hour, (03/22/2013 10:47 AM CDT) P athologist Signature HXGluc 2 Hr 110 70 - 155 POWERCHART MGDL Specimen (Source) Anatomical Collection Method Collection Time Re ceived Time Location / / Volume Laterality Blood 03/22/2013 10:47 AM CDT Matthew Aponte M.D. LAB BLOOD ADD-ON Performing Organization Address City/State/ZIP Code Phon e Number POWERCHART (ABNORMAL) Glucose Tolerance, 1HR (03/22/2013 9:50 AM CDT) P athologist Signature HXGluc 1 Hr 142 (H) 70 - 139 POWERCHART MGDL Specimen (Source) Anatomical Collection Method Collection Time Re ceived Time Location / / Volume Laterality Blood 03/22/2013 9:50 AM CDT Matthew Aponte M.D. LAB BLOOD NON ADD-ON Performing Organization Address City/State/ZIP Code Phon e Number POWERCHART Glucose Tolerance, 3 Hours (03/22/2013 8:54 AM CDT) P athologist Signature HXGluc Fast 3Hr 77 70 - 94 POWERCHART MGDL Specimen (Source) Anatomical Collection Method Collection Time Re ceived Time Location / / Volume Laterality Blood 03/22/2013 8:54 AM CDT Matthew Aponte M.D. LAB BLOOD NON ADD-ON Performing Organization Address City/State/ZIP Code Phon e Number POWERCHART documented in this encounter Visit Diagnoses Not on filedocumented in this encounter Additional Health Concerns Assessment Noted Time PHQ-9 Depression Total Score: 1 11/16/2012 11:45 AM CS T documented as of this encounter
--- OUTSIDE RECORDS SUMMARY | 2022-07-09 20:44 | XMS_ITS | Encounter Summary ---
:1990 Author Organization [facility] Address [address] [place] [address] Care Team Providers Name Role Phone Unavailable Primary Care Provider Unavailable Encounter Details Date Type Department Care Team Description 05/31/2013 Hospital Encounter [facility]X [facility] Todd Dinero [...] do you attend anabaptism or Never 2020 quaker services? 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 - 05/31/2013 8:31 AM CDT [id number] CHIEF COMPLAINT/REASON FOR VISIT Preoperative history and physical for planned section. HISTORY OF PRESENT ILLNESS This patient is a 22-year-old -0-2-1 female with LMP of 08/31/2012 and EDC of 06/07/2013 at 39 and 0/7 weeks. The patient presents for OB visit and preop examination. She is doing well. She reports good movement. She denies leaking of fluid or vaginal bleeding. She continues to have irregular contractions when she is active, but these improve when she rests. No current contractions. She has some pelvic pressure at the end of the day when she is standing but this again resolves when she rests. No current pelvic pressure. No headaches or vision changes. No depression symptoms. No difficulty urinating. No change in bowel habits. CURRENT MEDICATIONS 1. Generic vitamins. 2. Tylenol as needed. 3. Zyrtec 10 mg by mouth daily. ALLERGIES No known drug allergies. SYSTEMS REVIEW As per HPI. Otherwise negative. PAST MEDICAL/SURGICAL HISTORY 1. GERD, currently asymptomatic. 2. Seasonal allergic rhinitis. 3. History of depression, currently asymptomatic. 4. History of overdose and suicide attempt, currently asymptomatic. PAST SURGICAL HISTORY 1. section in 2009. PAST OBSTETRCAL HISTORY 1. section 11/26/2009 at 37 and 2/7 weeks' (male 6 pounds 10 ounces) for arrest of dilation. Low-segment transverse uterine incision by operation report. FAMILY HISTORY Mother, father and maternal grandfather with diabetes. No history of congenital anomalies. No hypertension. No coronary artery disease. No breast cancer, colon cancer or ovarian cancer. SOCIAL HISTORY The patient is single. The father of the baby is not involved. Her mother is her support person. Shedenies alcohol, tobacco or drug use. She denies a history of PID. She has had chlamydia in the past and was treated for chlamydia early in the on 10/05/2012. She denies a history of cervical dysplasia. She reports that she has never had a Pap smear. She denies a history of abuse. PREVENTIVE SERVICES Tobacco use: Denied. Pap smear: Not indicated due to age. Chlamydia: 11/23/2012. Lipid panel: Not indicated due to age. Gardasil: Recommended this should be done . Tetanus booster: 05/14/2004. Recommended this be given . Depression: Denied. Asthma: Denied. VITAL SIGNS WEIGHT: 100.2 kg. BLOOD PRESSURE: 122/72. PULSE: 68. RESPIRATIONS: 18. TEMPERATURE: 36.8. HEIGHT: 149 cm. PHYSICAL EXAM GENERAL: Well-developed, well-nourished obese female in no apparent distress. Alert and oriented x 3. Normal affect. Patient appears groomed appropriately. SKIN: Normal without evidence of rashes or lesions. HEAD: Within normal limits ENT: Neck is supple and within normal limits. Oropharynx is clear. No cervical adenopathy or tenderness. Trachea is midline. THYROID: No thyromegaly or tenderness. BREASTS: Deferred. HEART: Regular rate and rhythm without murmur. No rubs or gallops. No JVD. No peripheral vascular disease. LUNGS: Clear to auscultation bilaterally with good inspiratory effort. ABDOMEN: Gravid, soft, obese, nontender. Positive bowel sounds. Fundal height 39 cm. Positive heart tones, 134 beats per minute. Vertex presentation by Darinel's. Well-healed Pfannenstiel skin incision. RECTUM: Declined by patient. GENITALIA: Cervix is fingertip dilated at 3 cm, thick, -1 station. Cephalic presentation confirmed. No change from prior examination. SPINE: No CVA tenderness bilaterally. EXTREMITIES: No clubbing, cyanosis or edema. Nontender bilaterally. GAIT: Normal. NEURO: No gross motor or sensory deficits noted. LABS: labs are blood type 0+, antibody screen negative. Hemoglobin 12.1, hematocrit 35.5, platelets 283, rubella nonimmune, serology negative. Chlamydia positive 10/05/2012, negative on 11/23/2012. Hepatis B surface antigen negative. HIV negative. TSH 1.5. Vitamin D 127. Diabetic screen 152. Her GTT is 77, 142, 110, 107. Urine culture no growth. Group B strep culture negative. IMPRESSION/REPORT/PLAN 1. Intrauterine at 39 and 0/7 weeks. Positive cardiac activity. 2. History of prior section. 3. History of chlamydia in on 10/05/2012 treated. 4. Rubella nonimmune status. 5. Obesity. 6. History of depression and suicide attempt, currently asymptomatic. 7. Seasonal allergic rhinitis, asymptomatic on medication. PLAN: 1. The patient is scheduled for elective repeat section on 06/01/[address] [facility] at 39 and 1/7 weeks. I reviewed the risks, benefits, alternatives, and indication of the repeat section with the patient including the risk of infection, bleeding, need for a blood transfusion, injury to the organs with need for repair, need for hysterectomy, risk of injury to fetus, anesthesia risk, DVT risk, cardiovascular risk, unexpected findings of rarely . Patient verbalizes understanding and would like to proceed. Surgical consent form is signed. 2. Patient will be nothing by mouth for at least 6 to 8 hours prior to surgery. 3. I gave the patient Hibiclens and discussed hygiene and bathing prior to surgery. 4. Routine OB precautions, recommendations and instructions are reviewed with the patient. 5. Labor precautions are reviewed with the patient. 6. I recommend the patient receive rubella immunization in the period as she is rubella nonimmune. 7. I recommend the patient receive Adacel immunization in the period as it has been 9-1/2years since her last tetanus immunization. 8. Patient will meet with anesthesia tomorrow morning prior to surgery. 9. We will check a CBC on admission to the hospital. 10. I spent 40 minutes odgb-fo-slsb time with the patient discussing symptoms, performing examination and coordinating care. 11. All questions were answered for the patient. HEALTH MAINTENANCE RECOMMENDATIONS - Instructed to have complete physical exam once a year. - Instructed to see java web application developer and dentist at least once a year. - Instructed to wear a seatbelt when in a motor vehicle. - Questioned about symptoms of domestic abuse and there are none. - 2 question depression screen performed without signs of depression symptoms. - Recommend breast self examinations once a month. Instructed on principle of self exam. - Regular exercise program recommended. - Daily calcium is recommended. - Folic acid supplement is recommended for all women of childbearing age. Todd Aponte M.D./[facility] Electronically Signed By: TODD APONTE MD On: 05/31/2013 12:54 PM Source: [facility] MHSDOLBEYNONRADSYS Document Id: [id number] documented in this encounter Miscellaneous Notes Miscellaneous - Todd Aponte M.D. - 05/31/2013 8:48 AM CDT Ambulatory Patient Summary [address] [address] Visit Information Name: BARBRA GIMENEZ [facility] Number: [id number] Current Date: 05/31/2013 08:48:24 Physicians Attending Provider: TODD APONTE MD Primary [...] Upcoming Appointments Date Time Location Reason Provider 06/14/2013 14:30 [facility] GYMNASTIC TEACHER post-op Todd Aponte MD Your Goals/Additional instructions: Source: [facility] POWERCHART Document Id: [id number] Miscellaneous - Todd Aponte M.D. - 05/31/2013 8:48 AM CDT Ambulatory Depart Summary [address] [place] [address] Visit Information Name: BARBRA GIMENEZ [facility] Number: [id number] Visit Date: 05/31/2013 08:48:23 Attending Provider: TODD APONTE MD Primary Care [...] your provider for clarification. Additional Information: Source: [facility] POWERCHART Document Id: [id number] Miscellaneous - Nori Hong, L.P.N. 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 Intake/History Adult Trailhead Maintenance Worker Intake/History Entered On: 05/31/2013 8:36 CDT Performed On: 05/31/2013 8:34 CDT by NORI HONG Intake Chief Complaint : OB visit 38 6/7 weeks LMP Date : 08/31/2012 Systolic Blood Pressure : 122 mmHg Diastolic Blood Pressure : 72 mmHg NIBP Mean : 89 mmHg BP Location : Right upper extremity Blood Pressure Cuff Size : Regular Actual Weight : 100.2 kg(Converted to: 220 lb 14 oz) Weight Source : Standing scale Dosing Weight Clinic : 100.2 kg NORI HONG - 05/31/2013 8:34 CDT General Info Languages : Palauan NORI HONG - 05/31/2013 8:34 CDT Subjective Pain Symptoms : No NORI HONG - 05/31/2013 8:34 CDT Dependent Habits Tobacco Use/Currently Using : No Exposure to Tobacco Smoke : Lives with someone who smokes, Other: none Smoking Status : Never smoker NORI HONG - 05/31/2013 8:34 CDT Caffeine Use Grid Caffeine Use : Current Type : Coffee Frequency : Daily NORI HONG - 05/31/2013 8:34 CDT Source: [employer] Document Id: [id number] CDT!25 documented in this encounter Plan of Treatment Not on filedocumented as of this encounter Visit Diagnoses Not on filedocumented in this encounter Additional Health Concerns Assessment Noted Time PHQ-9 Depression Total Score: 1 11/16/2012 11:45 AM CS T documented as of this encounter
--- OUTSIDE RECORDS SUMMARY | 2022-07-09 20:44 | XMS_ITS | Encounter Summary ---
:1990 Author Organization [facility] Address [address] [place] [address] Care Team Providers Name Role Phone Unavailable Primary Care Provider Unavailable Encounter Details Date Type Department Care Team Description 03/22/2013 Hospital Encounter HX [facility] Todd Dinero [...] do you attend bahai or Never 2020 confucianist services? 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 - 03/22/2013 1:30 PM CDT [id number] CHIEF COMPLAINT/REASON FOR VISIT Routine OB visit. HISTORY OF PRESENT ILLNESS This patient is a 22-year-old female with LMP 08/31/2012. EDC 06/07/2013 at 29-0/7 weeks who presents for OB visit. She is doing well. She has no complaints. Reports good movement. No leaking fluid, vaginal bleeding. No cramping or contractions. No pelvic pressure. No headaches, vision changes. No depression symptoms. CURRENT MEDICATIONS Generic vitamins. ALLERGIES No known drug allergies. PAST MEDICAL/SURGICAL HISTORY 1. History of GERD currently asymptomatic. 2. History of depression currently asymptomatic. 3. History of overdose, suicide attempt currently asymptomatic. Past Surgical History section 2009. VITAL SIGNS WEIGHT 94.6 kg. BLOOD PRESSURE: 116/62. PULSE 70. HEIGHT 149 cm. PHYSICAL EXAMINATION GENERAL: Well developed, well nourished gravid female in no apparent distress. Alert and oriented times 3. Normal affect. ABDOMEN: Gravid, soft and nontender. Fundal height is 29 cm. Positive heart tones 148. Vertex presentation by Darinel's. EXTREMITIES: No edema or tenderness. GENITALIA: Genital exam deferred. LABS 03/08/2013 diabetic screen 152, hemoglobin 11.2. LABS 03/22/2013, 3-hour GTT 77, 142, 110, 107 normal. IMPRESSION/REPORT/PLAN 1. Intrauterine at 29-0/7 weeks. Positive cardiac activity. 2. History of prior section. 3. History of chlamydia in 10/05/2012 treated. 4. Rubella nonimmune status. 5. Obesity. 6. History of depression and suicide attempt currently asymptomatic. 7. Elevated diabetic screen with normal 3-hour GTT. Plan 1. I reviewed 3 hour GTT results with patient which is normal. She does not have gestational diabetes. She has various family members with diabetes. I do encourage patient to follow ADA diet. I discussed this with her. I offered her consult to a scientist/engineer and she declines. I would like the patient to follow up in 2 weeks for OB visit or be seen sooner as needed. 2. Plan elective repeat section at term. 3. Routine OB precautions, recommendations and instructions are reviewed with the patient including movement and kick counts. 4. Routine depression precautions in are reviewed with the patient. Todd Aponte M.D./andrews Electronically Signed By: TODD APONTE MD On: 03/24/2013 08:27 AM Source: [facility] MHSDOLBEYNONRADSYS Document Id: [id number] documented in this encounter Miscellaneous Notes Miscellaneous - Todd Aponte M.D. - 03/22/2013 1:47 PM CDT [place] [address] Visit Information Name: BARBRA GIMENEZ [facility] Number: [id number] Current Date: 03/22/2013 13:47:50 Physicians Attending Provider: TODD APONTE MD Primary [...] Time Location Reason Provider No Appointments found Your Goals/Additional instructions: Source: [facility] POWERCHART Document Id: [id number] Zaheer - Todd Aponte M.D. - 03/22/2013 1:47 PM CDT Ambulatory Depart Summary [address] [address] Visit Information Name: BARBRA GIMENEZ [facility] Number: [id number] Visit Date: 03/22/2013 13:47:49 Attending Provider: TODD APONTE MD Primary Care [...] your provider for clarification. Additional Information: Source: [facility] inTarvoCHART Document Id: [id number] Miscellaneous - Conversion, Historical Provider Ser - 03/22/2013 1:28 PM CDT Health Assessment Health Assessment Entered On: 03/22/2013 13:28 CDT Performed On: 03/22/2013 13:28 CDT by ESTRELLA HARRIS LPN Health Assessment Complete Health Assessment Complete or Modified : Annual Health Assessment Annual Health Assessment Completed : Yes ESTRELLA HARRIS LPN - 03/22/2013 13:28 CDT Nutrition Nutrition Risk Factors by History Adult : None Home Diet : Regular Eating Difficulties : None ESTRELLA HARRIS LPN - 03/22/2013 13:28 CDT Functional Current Daily Living Assistance : None ESTRELLA HARRIS LPN - 03/22/2013 13:28 CDT Dependent Habits Tobacco Use/Currently Using : No Exposure to Tobacco Smoke : Lives with someone who smokes, Other: none Smoking Status : Never smoker ESTRELLA HARRIS LPN - 03/22/2013 13:28 CDT Caffeine Use Grid Caffeine Use : Current Type : Coffee Frequency : Daily ESTRELLA HARRIS LPN - 03/22/2013 13:28 CDT Psychosocial Domestic Abuse Concerns : None ESTRELLA HARRIS LPN - 03/22/2013 13:28 CDT Advance Directive Advanced Directives : No ESTRELLA HARRIS LPN - 03/22/2013 13:28 CDT Educ Needs Learning Style Preference Adult Grid Patient : Demonstration, Printed materials, Verbal explanation, Video/Educational TV Family : Demonstration, Printed materials, Verbal explanation, Video/Educational TV ESTRELLA HARRIS LPN - 03/22/2013 13:28 CDT Source: [employer] Document Id: [id number] CDT!27 Miscellaneous - Conversion, Historical Provider Ser - 03/22/2013 1:26 PM CDT 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 Intake/History 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 Intake/History Entered On: 03/22/2013 13:28 CDT Performed On: 03/22/2013 13:26 CDT by ESTRELLA HARRIS LPN Intake Chief Complaint : ob check Systolic Blood Pressure : 116 mmHg Diastolic Blood Pressure : 62 mmHg NIBP Mean : 80 mmHg BP Location : Left upper extremity Blood Pressure Cuff Size : Regular Actual Weight : 94.6 kg(Converted to: 208 lb 9 oz) Weight Source : Standing scale Dosing Weight Clinic : 94.6 kg ESTRELLA HARRIS LPN - 03/22/2013 13:26 CDT General Info Information Given By : Patient Languages : [place] Islander ESTRELLA HARRIS LPN - 03/22/2013 13:26 CDT Subjective Pain Symptoms : No ESTRELLA HARRIS LPN - 03/22/2013 13:26 CDT Dependent Habits Tobacco Use/Currently Using : No Exposure to Tobacco Smoke : Lives with someone who smokes, Other: none Smoking Status : Never smoker Alcohol Use : No ESTRELLA HARRIS LPN - 03/22/2013 13:26 CDT Caffeine Use Grid Caffeine Use : Current Type : Coffee Frequency : Daily ESTRELLA HARRIS LPN - 03/22/2013 13:26 CDT [facility] [employer] Document Id: [id number] CDT!26 documented in this encounter Plan of Treatment Not on filedocumented as of this encounter Visit Diagnoses Not on filedocumented in this encounter Additional Health Concerns Assessment Noted Time PHQ-9 Depression Total Score: 1 11/16/2012 11:45 AM CS T documented as of this encounter
--- OUTSIDE RECORDS SUMMARY | 2022-07-09 20:44 | XMS_ITS | Encounter Summary ---
:1990 Author Organization [facility] Address [address] [place] [address] Care Team Providers Name Role Phone Unavailable Primary Care Provider Unavailable Encounter Details Date Type Department Care Team Description 12/01/2013 Hospital Encounter HX [facility] Todd Dinero [...] do you attend baptism or Never 2020 voodoo services? Do you belong to any clubs [...] Reading Time Taken Comments Blood Pressure 122/78 12/01/2013 2:12 PM REHAB TRAINER Pulse - - Temperature - - Respiratory Rate - - Oxygen Saturation - - Inhaled Oxygen Concentration - - Weight 89.2 kg (196 lb 10.4 oz) 12/01/2013 2:12 PM REHAB TRAINER Height - - Body Mass Index 40.18 11/23/2012 1:32 PM REHAB TRAINER documented in this encounter Progress Notes Todd Aponte M.D. - 12/01/2013 1:59 PM CST [id number] CHIEF COMPLAINT/REASON FOR VISIT Routine OB visit. HISTORY OF PRESENT ILLNESS This patient is a 23-year-old -0-0-2 female with LMP of 09/20/2013, EDC of 06/27/2014 at 10-2/7weeks. Patient presents for OB visit, OB ultrasound. She is doing well. She continues to have mild morning nausea but denies emesis. No difficulty urinating. No change in bowel habits. No vaginal itching, irritation or discharge. No vaginal bleeding. No headaches, vision changes. No depression symptoms. ALLERGIES No known drug allergies. MEDICATIONS Generic vitamins. PAST MEDICAL/SURGICAL HISTORY 1. GERD, on no medication. 2. Obesity. 3. Seasonal allergic rhinitis, on no medication. 4. Depression, on no medication. 5. History of overdose and suicide attempt in the past. PAST MEDICAL/SURGICAL HISTORY 1. section 2009. 2. section 2012. PAST OBSTETRICAL HISTORY 1. section 11/26/2009. 2. section 06/01/2013. SOCIAL HISTORY Patient is single. She has a new partner. She denies alcohol, tobacco or drug use. No history of PID. She was treated for chlamydia in 2012. No history of cervical dysplasia. No history of abuse. FAMILY HISTORY Mother, father, maternal grandfather with diabetes. No congenital anomalies. No hypertension. No coronary artery disease. ADULT PREVENTATIVE SERVICES: Tobacco use: None. Pap smear: Recommend this be done at first OB history and physical examination. Chlamydia: 10/27/2013. Lipid panel: Not indicated. Gardasil: Recommended after visit. Tetanus booster: Recommended after 20 weeks. Influenza: Recommended, patient declines. Depression: Denied. Asthma: Denied. VITAL SIGNS: Weight 89.2 kg. Blood pressure 122/78. Pulse 70. Height not performed. PHYSICAL EXAMINATION GENERAL: Well-developed, well-nourished gravid female in no apparent distress. Alert and oriented times 3. Normal affect. ABDOMEN: Obese. Gravid, soft and nontender. Fundal height not palpated. Positive Doptones are auscultated. EXTREMITIES: No edema or tenderness. GENITOURINARY: Deferred. PROCEDURE: An obstetrical ultrasound was performed. Please see separate form for details. IMPRESSION/REPORT/PLAN 1. Intrauterine at 10 weeks and 2 days. Positive cardiac activity. 2. History of 2 prior sections. 3. Nursing. 4. Obesity. 5. History of depression currently asymptomatic. PLAN: 1. I reviewed OB ultrasound results with the patient showing intrauterine at 9 weeks and 5days which is consistent with dates. Positive cardiac activity is seen. Yolk-sac is seen. Cervical length is thick and closed at 3.25 cm. 2. I would like the patient to follow up in 2 weeks for OB visit including first OB history and physical examination, pelvic exam and Pap smear. 3. I recommend we check new OB labs. 4. I encouraged vitamins. The patient is and nursing. I discussed nursing in . 5. Routine OB precautions, recommendations and instructions reviewed with patient. Todd Aponte M.D./jose Electronically Signed By: TODD APONTE MD On: 12/04/2013 10:17 AM Source: [facility] MHSDOLBEYNONRADSYS Document Id: [id number] documented in this encounter Miscellaneous Notes Miscellaneous - Todd Aponte M.D. - 12/01/2013 3:02 PM CST Ambulatory Patient Summary [address] [id number] Visit Information Name: BARBRA GIMENEZ MUKESH [facility] Number: [id number] Current Date: 12/01/2013 15:02:35 Physicians Attending Provider: TODD APONTE MD Primary [...] the Following Medications: Medication list as of 12-01-13 15:02 Attention: If you have any medications at [...] Upcoming Appointments Date Time Location Reason Provider 12/22/2013 14:00 FBCV MEAT CURER first OB H&P Todd Aponte MD Attention: Contact your local Clinic if further appointment detail needed. Your Goals/Additional instructions: Source: [facility] POWERCHART Document Id: [id number] B TRAINER Miscellaneous - Todd Aponte M.D. - 12/01/2013 3:02 PM CST Ambulatory Discharge Medication List [address] [id number] Visit Information Name: AMMY BARBRA AMYORGA [facility] Number: [id number] Visit Date: 12/01/2013 15:02:34 Attending Provider: TODD APONTE MD Primary Care [...] the Following Medications: Medication list as of 12-01-13 15:02 Attention: If you have any medications at home that are not on this list, DO NOT take them until youcontact your provider for clarification. Give a copy of your medication list to your primary care provider. Update your medication list any time medications or doses are changed and carry your medication list at all times in case of emergency. Additional Information: Source: [facility] [employer] Document Id: [id number] B TRAINER Miscellaneous - Nori Hong LWanderP.N. - 12/01/2013 2:12 PM CST Adult Warehouse Supervisor 3Rd Shift Intake/History Adult Warehouse Supervisor 3Rd Shift Intake/History Entered On: 12/01/2013 14:12 REHAB TRAINER Performed On: 12/01/2013 14:12 REHAB TRAINER by NORI HONG Intake Chief Complaint : OB visit US 10 2/7 weeks Systolic Blood Pressure : 122 mmHg Diastolic Blood Pressure : 78 mmHg NIBP Mean : 93 mmHg BP Location : Left upper extremity Blood Pressure Cuff Size : Regular Actual Weight : 89.2 kg(Converted to: 196 lb 10 oz) Weight Source : Standing scale Dosing Weight Clinic : 89.2 kg NORI HONG - 12/01/2013 14:12 REHAB TRAINER General Info Languages : Lithuanian NORI HONG - 12/01/2013 14:12 REHAB TRAINER Subjective Pain Symptoms : No NORI HONG - 12/01/2013 14:12 REHAB TRAINER Dependent Habits Tobacco Use/Currently Using : No Exposure to Tobacco Smoke : Lives with someone who smokes, Other: none Smoking Status : Never smoker NORI HONG - 12/01/2013 14:12 REHAB TRAINER Caffeine Use Grid Caffeine Use : Current Type : Coffee Frequency : Daily NORI HONG - 12/01/2013 14:12 REHAB TRAINER [facility] Document Id: [id number] REHAB TRAINER!24 B TRAINER documented in this encounter Plan of Treatment Not on filedocumented as of this encounter Visit Diagnoses Not on filedocumented in this encounter Additional Health Concerns Assessment Noted Time PHQ-9 Depression Total Score: 1 11/16/2012 11:45 AM CS T documented as of this encounter
--- OUTSIDE RECORDS SUMMARY | 2022-07-09 20:44 | XMS_ITS | Encounter Summary ---
:1990 Author Organization [facility] Address [address] [place] [address] Care Team Providers Name Role Phone Unavailable Primary Care Provider Unavailable Encounter Details Date Type Department Care Team Description 05/18/2013 Hospital Encounter HX [facility] Todd Dinero [...] do you attend spiritism or Never 2020 christian services? Do you belong to any clubs [...] Sign Reading Time Taken Comments Blood Pressure 116/68 05/18/2013 1:32 PM CDT Pulse - - Temperature - - Respiratory Rate - - Oxygen Saturation - - Inhaled Oxygen Concentration - - Weight 101 kg (222 lb 7.1 oz) 05/18/2013 1:32 PM CDT Height - - Body Mass Index 45.45 11/23/2012 1:32 PM MEDICAL DETAILIST documented in this encounter Progress Notes Todd Aponte M.D. - 05/18/2013 1:28 PM CDT [id number] CHIEF COMPLAINT/REASON FOR VISIT Routine OB visit. HISTORY OF PRESENT ILLNESS This patient is a 22-year-old G2, P1001 female with LMP of 08/31/2012 with EDC 06/07/2013 at 37-1/7 weeks'. Patient presents for OB visit. She is doing well. She reports good movement. Her contractions have resolved. She has been on modified bedrest at home and returned to work without difficulty. No further cramping or contractions. No pelvic pressure. No headaches or vision changes. No depression symptoms. No leaking of fluid or vaginal bleeding. She reports active movement. No depression symptoms. CURRENT MEDICATIONS Generic vitamins. ALLERGIES No known drug allergies. PAST MEDICAL / SURGICAL HISTORY Past Medical History 1. GERD, currently asymptomatic. 2. Depression, currently asymptomatic. 3. History of overdose and suicide attempt, currently asymptomatic. PAST MEDICAL/SURGICAL HISTORY section 2009. VITAL SIGNS WEIGHT: 100.9 kg. BLOOD PRESSURE: 116/68. PULSE: 70. HEIGHT: 149 cm. PHYSICAL EXAMINATION GENERAL: Well developed, well nourished gravid female in no apparent distress. Alert and oriented times 3. Normal affect. ABDOMEN: Gravid, soft and nontender. Fundal height is 37 cm. Positive heart tones 132. Vertex presentation by Darinel's. EXTREMITIES: No edema or tenderness. GENITALIA: Genital exam: Cervix is fingertip dilated, 3 cm thick, -1 station. No change from prior examination. Cephalic presentation confirmed. SPINE: No CVA tenderness bilaterally. LABS 05/04/2013: GBS culture negative. IMPRESSION/REPORT/PLAN 1. Intrauterine at 37-1/7 weeks'. Positive cardiac activity. 2. History of prior section. 3. History of chlamydia in on 10/05/2012 treated. 4. Rubella nonimmune status. 5. Obesity. 6. History depression. Suicide attempted in the past. Currently asymptomatic. PLAN 1. Routine OB precautions, recommendations and instructions are reviewed with the patient including movement and kick counts. 2. Follow up in one week for OB visit or be seen sooner as needed. 3. Labor and precautions are reviewed with patient. 4. I strongly encouraged the patient to increase fluids and hydration. I discussed dietary recommendations in . I also discussed to make sure she gets increased rest and take breaks at work. 5. Recommend elective repeat section at term. This is scheduled for 06/01/2013 at 39-1/7 weeks'. 6. I spent 25 minutes [id number] time with the patient discussing symptoms, performing examinationand coordinating care. Todd Aponte M.D./fer Electronically Signed By: TODD APONTE MD On: 05/24/2013 08:27 AM Source: [facility] MHSDOLBEYNONRADSYS Document Id: [id number] documented in this encounter Miscellaneous Notes Miscellaneous - Todd Aponte M.D. 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 - 05/18/2013 3:19 PM CDT [place] [address] Visit Information Name: BARBRA GIMENEZ [facility] Number: [id number] Visit Date: 05/18/2013 15:19:17 Attending Provider: TODD APONTE MD Primary Care [...] your provider for clarification. Additional Information: Source: [facility] [employer]CHART Document Id: [id number] Miscellkhadijah - Nori Hong L.P.N. 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 Intake/History Entered On: 05/18/2013 13:34 CDT Performed On: 05/18/2013 13:32 CDT by NORI HONG Intake Chief Complaint : OB visit 37 1/7 weeks LMP Date : 08/31/2012 Systolic Blood Pressure : 116 mmHg Diastolic Blood Pressure : 68 mmHg NIBP Mean : 84 mmHg BP Location : Right upper extremity Blood Pressure Cuff Size : Regular Actual Weight : 100.9 kg(Converted to: 222 lb 7 oz) Weight Source : Standing scale Dosing Weight Clinic : 100.9 kg NORI HONG - 05/18/2013 13:32 CDT General Info Languages : Algerian NORI HONG - 05/18/2013 13:32 CDT Subjective Pain Symptoms : No NORI HONG - 05/18/2013 13:32 CDT Dependent Habits Tobacco Use/Currently Using : No Exposure to Tobacco Smoke : Lives with someone who smokes, Other: none Smoking Status : Never smoker NORI HONG - 05/18/2013 13:32 CDT Caffeine Use Grid Caffeine Use : Current Type : Coffee Frequency : Daily NORI HONG - 05/18/2013 13:32 CDT Source: [address] Document Id: [id number] CDT!25 documented in this encounter Plan of Treatment Not on filedocumented as of this encounter Visit Diagnoses Not on filedocumented in this encounter Additional Health Concerns Assessment Noted Time PHQ-9 Depression Total Score: 1 11/16/2012 11:45 AM CS T documented as of this encounter
--- OUTSIDE RECORDS SUMMARY | 2022-07-09 20:44 | XMS_ITS | Encounter Summary ---
:1990 Author Organization [facility] Address [address] [place] [address] Care Team Providers Name Role Phone Unavailable Primary Care Provider Unavailable Encounter Details Date Type Department Care Team Description 06/01/2013 Hospital Encounter HX NO MAPPING Matthew Aponte [...] do you attend mosque or Never 2020 evangelical services? Do you [...]
--- OUTSIDE RECORDS SUMMARY | 2022-07-09 20:44 | XMS_ITS | Encounter Summary ---
:1990 Author Organization [facility] Address [address] [place] [address] Care Team Providers Name Role Phone Unavailable Primary Care Provider Unavailable Encounter Details Date Type Department Care Team Description 01/19/2014 Hospital Encounter HX [facility] Todd Dinero [...] do you attend orthodoxy or Never 2020 m[employer]on services? Do you [...] Sign Reading Time Taken Comments Blood Pressure 116/60 01/19/2014 1:55 PM CDT Pulse - - Temperature - - Respiratory Rate - - Oxygen Saturation - - Inhaled Oxygen Concentration - - Weight 89 kg (196 lb 3.4 oz) 01/19/2014 1:55 PM CDT Height - - Body Mass Index 40.09 11/23/2012 1:32 PM CLIENT SOLUTIONS MANAGER documented in this encounter Progress Notes Todd Aponte M.D. - 01/19/2014 1:50 PM CDT [id number] CHIEF COMPLAINT/REASON FOR VISIT Routine OB visit. HISTORY OF PRESENT ILLNESS This patient is 15 minutes late for her appointment. She is 23-year-old G3, P2-0-0-2 female with LMPof 09/20/2013 and EDC of 06/27/2014 at 17-2/7 weeks. She presents for OB visit. She has not had a first OB history and physical examination, and she has not had her new OB labs. She reports her nausea is much improved with no further emesis. No headaches, vision changes. No depression symptoms. No pain, cramping, tenderness or discomfort. No leaking of fluid. No vaginal bleeding. She reports she is feeling the baby move over the last week and describes this as a fluttering nodepression symptoms. PAST MEDICAL/SURGICAL HISTORY PAST MEDICAL HISTORY: 1. Gastroesophageal reflux disease on no medication. 2. Obesity. 3. Seasonal allergic rhinitis on no medication. 4. Depression on no medication. 5. History of overdose and suicide attempt in the past. PAST SURGERY HISTORY: 1. section 2009. 2. section 2012. PAST OBSTETRICAL HISTORY: 1. section 11/26/2009. 2. section 06/01/2013. ALLERGIES No known drug allergies. MEDICATIONS Generic vitamins. SOCIAL HISTORY Patient is single. She has a new partner. She denies alcohol, tobacco, or drug use. No history of PID. She was treated for chlamydia in 2012. She has negative chlamydia this . No history of cervical dysplasia. No history of abuse. FAMILY HISTORY Mother, father, maternal grandfather with diabetes. No history of congenital anomalies. No hypertension. No coronary disease. VITAL SIGNS Weight 89.0 kg, blood pressure 116/60, pulse 68, height not performed. PHYSICAL EXAMINATION GENERAL: Well-developed, well-nourished, obese gravid female in no apparent distress. Alert and oriented times 3. Normal affect. ABDOMEN: Gravid, obese, soft and nontender. Fundal height not palpated. Positive Doptones are auscultated at 156 beats per minute. Well-healed Pfannenstiel skin incision. EXTREMITIES: No edema or tenderness. GENITAL: Deferred. DIAGNOSTICS New OB labs are ordered. Patient will go to the front to have this scheduled. IMPRESSION/REPORT/PLAN 1. Intrauterine at 17-2/7 weeks. Positive cardiac activity. 2. History of 2 prior sections. 3. Obesity. 4. History of depression, currently asymptomatic. PLAN: 1. I recommend the patient do new OB labs. These are ordered. The patient will go to the front and have these scheduled. 2. I would like to see the patient back in the next week for a full visit and an opportunity to do first OB history and physical examination. I did not have enough time to do this today. She will follow back up next week. 3. Routine OB precautions, recommendations, instructions are reviewed with the patient including movement and kick counts. 4. I discussed genetic testing, quad screen testing with the patient. The patient declines. Todd Aponte M.D./ruiz Electronically Signed By: TODD APONTE MD On: 01/19/2014 03:48 PM Source: [facility] MHSDOLBEYNONRADSYS Document Id: [id number] documented in this encounter Miscellaneous Notes Miscellaneous - Todd Aponte M.D. - 01/19/2014 2:07 PM CDT Ambulatory Patient Summary [facility] [address] [place] [id number] Visit Information Name: BARBRA GIMENEZ [facility] Number: [id number] Current Date: 01/19/2014 14:07:37 Physicians Attending Provider: TODD APONTE MD Primary [...] a day Stop Taking the Following Medications: fluconazole (Diflucan 150 mg oral tablet) Medication list as of 01-19-14 14:07 Attention: If you have any medications at [...] Electronically Signed By: TODD APONTE MD Signed On:19-JAN-2014 14:07:33 Your Allergies & Intolerances Substance Reaction Symptoms Category Comments Cats Other has allergy to cats Your Problem List Problem Status Onset Comments Family History of Diabetes Mellitus Active Mild Hyperemesis Gravidarum, Antepartum Condition or Complication Active 10/26/2012 Previous delivery, antepartum Active 10/27/2013 Your Upcoming Appointments Date Time Location Reason Provider 01/22/2014 14:30 [facility] 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 Your Goals/Additional instructions: Source: [facility] POWERCHART Document Id: [id number] Miscellaneous - Todd Aponte M.D. - 01/19/2014 2:07 PM CDT Ambulatory Discharge Medication List [address] [id number] Visit Information Name: AMMY BARBRA MAYORGA [facility] Number: [id number] Visit Date: 01/19/2014 14:07:36 Attending Provider: TODD APONTE MD Primary Care Provider: TODD APONTE MD HIMANSHU GIMENEZJOSEY MAYORGA has been given the following list [...] a day Stop Taking the Following Medications: fluconazole (Diflucan 150 mg oral tablet) Medication list as of 01-19-14 14:07 Attention: If you have any medications at [...] Electronically Signed By: TODD APONTE MD Signed On:19-JAN-2014 14:07:33 Additional Information: Source: [facility] [employer] Document Id: [id number] Miscellaneous - Nori Hong LWanderPWanderN. 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 Intake/History Adult Transit Bus Operator Intake/History Entered On: 01/19/2014 13:55 CDT Performed On: 01/19/2014 13:55 CDT by NORI HONG Intake Chief Complaint : OB visit 17 2/7 weeks Systolic Blood Pressure : 116 mmHg Diastolic Blood Pressure : 60 mmHg NIBP Mean : 79 mmHg BP Location : Right upper extremity Blood Pressure Cuff Size : Regular Actual Weight : 89.0 kg(Converted to: 196 lb 3 oz) Weight Source : Standing scale Dosing Weight Clinic : 89 kg NORI HONG - 01/19/2014 13:55 CDT General Info Languages : [place] NORI HONG - 01/19/2014 13:55 CDT Subjective Pain Symptoms : No NORI HONG - 01/19/2014 13:55 CDT Dependent Habits Tobacco Use/Currently Using : No Exposure to Tobacco Smoke : Lives with someone who smokes, Other: none Smoking Status : Never smoker NORI HONG - 01/19/2014 13:55 CDT Caffeine Use Grid Caffeine Use : Current Type : Coffee Frequency : Daily NORI HONG - 01/19/2014 13:55 CDT Source: [facility] [employer] Document Id: [id number] CDT!24 documented in this encounter Plan of Treatment Not on filedocumented as of this encounter Visit Diagnoses Not on filedocumented in this encounter Additional Health Concerns Assessment Noted Time PHQ-9 Depression Total Score: 1 11/16/2012 11:45 AM CS T documented as of this encounter
--- OUTSIDE RECORDS SUMMARY | 2022-07-09 20:44 | XMS_ITS | Encounter Summary ---
:1990 Author Organization [facility] Address [address] [place] [address] Care Team Providers Name Role Phone Unavailable Primary Care Provider Unavailable Encounter Details Date Type Department Care Team Description 06/09/2013 Hospital Encounter HX [facility] Matthew Dinero M .D. Social History Tobacco Use [...] do you attend confucianism or Never 2020 mandaen services? Do you [...]
--- OUTSIDE RECORDS SUMMARY | 2022-07-09 20:44 | XMS_ITS | Encounter Summary ---
:1990 Author Organization [facility] Address [address] [place] [address] Care Team Providers Name Role Phone Unavailable Primary Care Provider Unavailable Encounter Details Date Type Department Care Team Description 01/02/2014 Hospital Encounter HX [facility] Nilton Sellers, [employer], C.N.P. [address] [place], [place] [phone] (Wo rk) Social History [...] do you attend scientologist or Never 2020 spiritism services? 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 - 01/02/2014 12:37 PM CDT [id number] CHIEF COMPLAINT/REASON FOR VISIT Routine follow up obstetrical appointment at 14-6/7 weeks' gestation. HISTORY OF PRESENT ILLNESS Norah is a 23-year-old, 3, para 2, who has history of section x2. She was scheduled for a routine OB appointment with Dr. Aponte approximately a week ago, but states that her car brokedown, and therefore, she was not able to keep that appointment. She shows up today at the clinic requesting a routine OB appointment. I had an opening, and therefore, was able to see her. Her primary chain tender is Dr. Aponte whom she last saw on 12/01/2013. Norah's EDC is 06/27/2014 based on LMP 09/20/2013. This was confirmed by 1st trimester ultrasound at 9-5/7 weeks' gestation. The patient notes that she was seen in the [facility] on December 14, 2012, for complaints of pelvic pre ssure. She was worked up at that point, and diagnosed with bacterial vaginosis. She was treated withclindamycin, and symptoms did improve. She notes that she continues to have some vaginal discharge that is white, but no vaginal irritation, itching, burning, or concerns. She does want to make sure that her infection is cleared. She also notes that her boyfriend has cheated on her during their relationship in the recent past. She found this out recently, and therefore, is requesting testing for gonorrhea and Chlamydia today, which I am happy to do for her. She states that she continues to be sexually active with him, and she is not having any postcoital spotting, but that sometimes after urinating, she will wipe to clean herself, and she notes a couple little drops of pink on the toilet paper. She otherwise has had no symptoms. She denies any dysuria. No urgency or frequency, and she has been having some mild belly pain,but she believes that this is from her prior scar. She also notes that she has continued to experience nausea. She has not experienced any vomiting. She is trying to drink adequate fluids, but has trouble with this. She also notes that she has had a decreased appetite but is able to get fluid in. We discussed the importance of frequent small meals to h elp with the nausea. She also notes that when she is not eating and drinking appropriately, she willget migraine headaches. She is not taking any medicine for either of these problems at this time. She notes that sometimes if she gets a headache and goes outside to get fresh air, that will help relieve the headache. She denies any visual disturbances or auras with her migraines. She thinks she may have felt movement, but she is unsure at this point. Reassured her that is normal. She otherwise has no concerns or complaints for me. She denies any problem with mood. No problem with bowel function. MEDICATIONS vitamins. ALLERGIES Cats. SYSTEMS REVIEW Pertinent positives noted in HPI. Otherwise negative. PAST MEDICAL/SURGICAL HISTORY MEDICAL HISTORY: 1. Family history of diabetes. 2. History of hyperemesis gravidarum. 3. History of dysthymia. SURGICAL HISTORY: 1. section 06/01/2013. 2. IUD 03/10/2010. 3. section 11/26/2009. PREVENTATIVE HEALTH: Patient states she has never had a Pap smear, would like me to go ahead and perform that for her today. States that she has had 2 shots of her Gardasil injection, but due to , has not yet acquired her 3rd. FAMILY HISTORY Diabetes. SOCIAL HISTORY Patient denies any tobacco, alcohol, or illicit drug use during . Denies any domestic abuse. VITAL SIGNS Blood pressure 100/52, weight 88.1. PHYSICAL EXAMINATION GENERAL: She is a well-appearing female in no acute distress. HEENT: Vision and hearing grossly intact. SKIN: Warm, dry, and pink. No rashes, lesions or bruising. ABDOMEN: Soft and nontender, gravid. Fundal height 14 week size. heart tones 145 to 155 with the Doppler. PELVIS: External genitalia appears normal and healthy. Speculum examination is performed. Cervix visualized, appears pink and intact. No lesions noted. Cervix is closed. Pap smear obtained using a spatula and Cytobrush. Gonorrhea/chlamydia swab and wet prep obtained. There is some white, thick discharge throughout the vagina. No odor noted. Upon bimanual exam, uterus is 14-week size. Adnexa without masses or tenderness. Rectovaginal deferred. LOWER EXTREMITIES: Nontender. No edema. LABORATORY DATA Urine dipstick performed in the clinic, 1+ protein, otherwise negative. IMPRESSION/REPORT/PLAN 1. Routine visit at 14-6/7 weeks' gestation. 2. Screening for venereal disease. PLAN: I will plan to give patient a call at [phone] with her results later today of the wet prep. If findings are within normal limits, I will wait to provide her a call until I have all of her results back in approximately 10 to 14 days. This was discussed with patient, and she is agreeable. I recommend that she return in 2 weeks to have her next routine visit with Dr. Aponte and to gether obstetrical labs drawn at that time. She is agreeable. We did spend time discussing early warning signs and symptoms. Reassured her that it is normal to not be feeling definite movement at this time in her . Encouraged her to push oral fluids and to consume frequent small meals t hroughout the day. I recommended that she can go to [employer] and order picker jamee tablets to help withthe nausea, and if that is not helping within the next 2 weeks, she can further discuss options for treatment for nausea with Dr. Aponte. At this point, she does not have any additional concerns, questions or problems for me. She will be in contact with myself or Dr. Aponte if any problems should arise. Nilton Whiting CNP/ruiz Electronically Signed By: NILTON WHITING RN, CNP On: 01/04/2014 01:26 PM Source: [facility] MHSDOLBEYNONRADSYS Document Id: [id number] documented in this encounter Procedure Notes Giovanna Coffman R.N. - 01/02/2014 1:41 PM CDT Urine Dipstick Urine Dipstick Entered On: 01/02/2014 13:41 CDT Performed On: 01/02/2014 13:41 CDT by GIOVANNA MYOA Urine Dipstick UA Color POC : Yellow UA Appear POC : Clear UA Leuk POC : Negative UA Nitrite POC : Negative UA Urobilinogen POC : 1 mg/dl UA Protein POC : 1+ (30 mg/dl) UA pH POC : 6.5 UA Blood POC : Negativ UA Spec Grav POC : 1.030 UA Ketones POC : Negative UA Bili POC : Negative UA Glucose POC : Negative GIOVANNA MOYA - 01/02/2014 13:41 CDT Source: [facility] [employer] Document Id: [id number] CDT!14 documented in this encounter Miscellaneous Notes Miscellaneous - Nilton Whiting APRN, C.N.P. - 01/05/2014 9:42 AM CDT Normal Results Letter 05 January 2014 NORAH GIMENEZ [address] [facility] [address] Dear NORAH GIMENEZ, Thank you for your recent visit to the [facility] in [place]. I am pleased to report that your results from the following diagnostic test(s) are normal. I attempted to contact you by phone several times, but was unable to reach you or leave you a message. Please follow up with us as we discussed during your visit or sooner if you have any concerns. If you have questions or concerns, please do not hesitate to call our office. A. ThinPrep Pap Test Screen (Cervical/Endocervical): Satisfactory for evaluation. Negative for intraepithelial lesion or malignancy. Result Name Current Result Previous Result Normal Range Aero Bact Rslt-[place] See Comment 01/10/2013 C trach Amp Src-[place] Endocervical 01/02/2014 Urine 10/27/2013 C trach Amp RNA-[place] Negative 01/02/2014 Negative 10/27/2013 Negative - N gonor Amp Src-[place] Endocervical 01/02/2014 Urine 10/27/2013 N gonor Amp DNA-[place] Negative 01/02/2014 Negative 10/27/2013 Negative - Sincerely, NILTON WHITING [address] [place] [address] Electronic Signature Electronically Signed By: NILTON WHITING RN PRODUCT SUPPORT REP On: 05 January 2014 This document has images extracted. Source: [facility] [employer] Document Id: [id number] Electronically signed by [facility], [facility] Economist Research Assistant [id number] at 02/23/2017 11:45 AM CDT Miscellkhadijah - Nilton Whiting APRN, C.N.P. - 01/03/2014 9:28 AM CDT Normal Results Letter 03 January 2014 NORAH GIMENEZ [address] [facility] [address] Dear NORAH GIMENEZ, Thank you for your recent visit to the [facility] in [place]. I am writing you withtest results from your recent visit. Your wet prep test was postive for a yeast infection. I tried calling you several times at the number that you provided for me, but was unable to reach you. [facility] you and would like you to pick that up andstart taking it as soon as possible. Please follow the instructions on the bottle. Please follow up with us as we discussed during your visit or sooner if you have any concerns. If you have questions or concerns, please do not hesitate to call our office. Sincerely, NILTON WHITING [address] [place] [address] Electronic Signature Electronically Signed By: NILTON WHITING RN PRODUCT SUPPORT REP On: 03 January 2014 This document has images extracted. Source: [facility] [employer] Document Id: [id number] Electronically signed by [facility], [facility] Economist Research Assistant [id number] at 02/23/2017 11:45 AM CDT Miscellkhadijah - Nilton Whiting APRN, C.N.P. - 01/02/2014 2:07 PM CDT Ambulatory Patient Summary [facility] [address] [place], [place] [id number] Visit Information Name: NORAH GIMENEZ [facility] Number: [id number] Current Date: 01/02/2014 14:07:20 Physicians Attending Provider: NILTON WHITING RN PRODUCT SUPPORT REP Primary Care Provider: TODD APONTE MD NORAH GIMENEZLE has been given the following list [...] the Following Medications: Medication list as of 01-02-14 14:07 Attention: If you have any medications [...] of emergency. Electronically Signed By: NILTON WHITING RN PRODUCT SUPPORT REP Signed On:02-JAN-2014 14:07:13 Your Allergies & Intolerances Substance Reaction Symptoms [...] appointment detail needed. Your Goals/Additional instructions: Source: [facility] POWERCHART Document Id: [id number] Miscellaneous - Nilton Whiting APRN, C.N.P. - 01/02/2014 2:07 PM CDT Ambulatory Discharge Medication List [address] [id number] Visit Information Name: NORAH GIMENEZ [facility] Number: [id number] Visit Date: 01/02/2014 14:07:19 Attending Provider: NILTON WHITING RN PRODUCT SUPPORT REP Primary Care Provider: TODD APONTE MD NORAH [...] the Following Medications: Medication list as of 01-02-14 14:07 Attention: If you have any medications [...] of emergency. Electronically Signed By: NILTON WHITING RN PRODUCT SUPPORT REP Signed On:02-JAN-2014 14:07:13 Additional Information: Source: [facility] POWERCHART Document Id: [id number] Miscellaneous - Giovanna Coffman, R.N. 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 Intake/History Entered On: 01/02/2014 13:13 CDT Performed On: 01/02/2014 13:12 CDT by GIOVANNA MOYA Intake Chief Complaint : OB visit 14 6/7 week; recheck vaginal infection Systolic Blood Pressure : 100 mmHg Diastolic Blood Pressure : 52 mmHg NIBP Mean : 68 mmHg BP Location : Left upper extremity Blood Pressure Cuff Size : Regular Actual Weight : 88.1 kg(Converted to: 194 lb 4 oz) Dosing Weight Clinic : 88.1 kg GIOVANNA MOAY - 01/02/2014 13:12 CDT General Info Languages : Swedish GIOVANNA MOYA - 01/02/2014 13:12 CDT Subjective Pain Symptoms : No GIOVANNA MOYA - 01/02/2014 13:12 CDT Dependent Habits Tobacco Use/Currently Using : No Exposure to Tobacco Smoke : Lives with someone who smokes, Other: none Smoking Status : Unknown if ever smoke GIOVANNA MOYA - 01/02/2014 13:12 CDT Caffeine Use Grid Caffeine Use : Current Type : Coffee Frequency : Daily GIOVANNA MOYA - 01/02/2014 13:12 CDT Source: [facility] [employer] Document Id: [id number] CDT!23 documented in this encounter Plan of Treatment Not on filedocumented as of this encounter Procedures Procedure Name Priority Date/Time Associated Comments Diagnosis THINPREP SCREEN Routine 01/02/2014 4:53 PM Result s for this CDT procedure are i n the results section. N GONOR AMP SRC Routine 01/02/2014 2:38 PM Result s for this CDT procedure are i n the results section. N GONOR AMP DNA Routine 01/02/2014 2:38 PM Result s for this CDT procedure are i n the results section. C TRACH AMP SRC Routine 01/02/2014 2:38 PM Result s for this CDT procedure are i n the results section. C TRACH AMP RNA Routine 01/02/2014 2:38 PM Result s for this CDT procedure are i n the results section. WET PREP EXAM, Routine 01/02/2014 2:38 PM Results for this UROGENITAL CDT procedure are i n the results section. POCT KETONE, URINE Routine 01/02/2014 1:41 PM Res ults for this CDT procedure are i n the results section. documented in this encounter Results Pathology ThinPrep Screen (01/02/2014 4:53 PM CDT) [facility] Method Time Signature [facility] [id number] POWERCHART [facility] HXScrnNoInt See Comment POWERCHART [facility] Comment: A. ??ThinPrep Pap Test Screen (Cervical/ Endocervical): Satisfactory for evaluation. Negative for intraepithelial lesion or m alignancy. HXScrnNoInt [facility] See Comment POWERC IVEY Comment: Report electronically signed by Boni Garcia [facility](ASCP) 01/04/2014 15:38 Interpreted by: Huy Gutierres, CT(ASCP) HX Spec Desc-[place] See Comment POWERCHART Comment: A. ??ThinPrep Pap Test Screen (Cervical/ Endocervical): ??Received cloudy specimen in ThinPrep vial. Test Performed by: [facility] [place] [address] Spa Coordinator: Humberto anna III, M.D. Specimen (Source) Anatomical Collection Method Collection Time Re ceived Time Location / / Volume Laterality Cervix/Endocervix 01/02/2014 4:53 PM CDT Nilton Whiting APRN, C.N.P. LAB PAP PATHDX ORDERABL ES Performing Organization Address City/[facility] Code Phon e Number POWERCHART HX-N gonor Amp DNA (01/02/2014 2:38 PM CDT) athologist Signature HXN gonor Amp Negative POWERCHART DNA-[place] Specimen (Source) Anatomical Collection Method Collection Time Re ceived Time Location / / Volume Laterality 01/02/2014 2:38 PM CDT Narrative POWERCHART - 01/04/2014 7:55 PM CDT Test Performed by: [facility] [place] [address] Spa Coordinator: Humberto anna III, M.D. Nilton Whiting APRN, C.N.P. LAB HISTORICAL ORDERS Performing Organization Address City/[facility]/ZIP Code Phon e Number POWERCHART HX-N gonor Amp Src (01/02/2014 2:38 PM CDT) Patholo gist Method Time Signature HXN gonor Amp Endocervical POWERCHART Src-[place] Specimen (Source) Anatomical Collection Method Collection Time Re ceived Time Location / / Volume Laterality 01/02/2014 2:38 PM CDT Nilton Whiting APRN, C.N.P. LAB HISTORICAL ORDERS Performing Organization Address City/[facility]/ZIP Code Phon e Number POWERCHART HX-C trach Amp RNA (01/02/2014 2:38 PM CDT) Patholo gist Method Time Signature Chlamydia Negative POWERCHART trachomatis amplified RNA Specimen (Source) Anatomical Collection Method Collection Time Re ceived Time Location / / Volume Laterality 01/02/2014 2:38 PM CDT Nilton Whiting APRN, C.N.P. LAB HISTORICAL ORDERS Performing Organization Address City/[facility]/ZIP Code Phon e Number POWERCHART HX-C trach Amp Src (01/02/2014 2:38 PM CDT) [facility] Method Time Signature HXC trach Amp Endocervical POWERCHART Src-[place] Specimen (Source) Anatomical Collection Method Collection Time Re ceived Time Location / / Volume Laterality 01/02/2014 2:38 PM CDT Nilton Whiting APRN, C.N.P. LAB HISTORICAL ORDERS Performing Organization Address City/State/ZIP Code Phon e Number POWERCHART (ABNORMAL) Wet Prep Exam, Urogenital (01/02/2014 2:38 PM CDT) [facility] (POSITIVE) POWERCHART HXFinal Trichomonas: POWERCHART Negative HXFinal Clue Cells: POWERCHART Negative HXFinal Yeast: POWERCHART Positive HXFinal Sperm: POWERCHART Negative Specimen (Source) Anatomical Collection Method Collection Time Re ceived Time Location / / Volume Laterality Vagina 01/02/2014 2:38 PM CDT Nilton Whiting APRN, C.N.P. LAB MICROBIOLOGY - GENE RAL ORDERABLES Performing Organization Address City/[facility]/ZIP Code Phon e Number POWERCHART Ketone, Urine, POCT (01/02/2014 1:41 PM CDT) [facility] gist Method Time Signature Color Yellow POWERCHART Appearance Clear POWERCHART Leukocytes, Negative POWERCHART POCT, U Nitrites, Negative POWERCHART POCT, U Urobilinogen, 1 mg/dl POWERCHART POCT, Urine Protein, POCT, 1+ (30 POWERCHART U mg/dl) pH, POCT, 6.5 5.0 - 9.0 POWERCHART Urine Blood, POCT, U Negativ POWERCHART Specific 1.030 1.000 - POWERCHART [place], POCT, 1.030 U Ketone, POCT, Negative POWERCHART U Bilirubin, Negative POWERCHART POCT, U Glucose, POCT, Negative POWERCHART U Specimen (Source) Anatomical Collection Method Collection Time Re ceived Time Location / / Volume Laterality 01/02/2014 1:41 PM CDT Nilton Whiting APRN, C.N.P. LAB POCT ORDERABLES-MAN UAL Performing Organization Address City/State/ZIP Code Phon e Number POWERCHART documented in this encounter Visit Diagnoses Not on filedocumented in this encounter Additional Health Concerns Assessment Noted Time PHQ-9 Depression Total Score: 1 11/16/2012 11:45 AM CS T documented as of this encounter
--- OUTSIDE RECORDS SUMMARY | 2022-07-09 20:44 | XMS_ITS | Encounter Summary ---
:1990 Author Organization [facility] Address [address] [place] [address] Care Team Providers Name Role Phone Unavailable Primary Care Provider Unavailable Encounter Details Date Type Department Care Team Description 07/21/2013 Hospital Encounter HX [facility] Justus Middleton M .D., M.H.A. [address] [facility] [phone] (Wo rk) Social History Tobacco Use Types [...] do you attend christianity or Never 2020 restoration services? Do you [...] Sign Reading Time Taken Comments Blood Pressure 100/62 07/21/2013 1:44 PM CDT Pulse - - Temperature - - Respiratory Rate - - Oxygen Saturation - - Inhaled Oxygen Concentration - - Weight 89.9 kg (198 lb 3.1 oz) 07/21/2013 1:44 PM CDT Height - - Body Mass Index 40.49 11/23/2012 1:32 PM PUBLIC ADDRESS TECHNICIAN documented in this encounter Progress Notes Justus Schaefer M.D. - 07/21/2013 1:36 PM CDT [id number] CHIEF COMPLAINT/REASON FOR VISIT Presenting for incision opening and drainage. HISTORY OF PRESENT ILLNESS Miss Belle is a 23-year-old lady who presents for the above reason. She is status post repeat in the 1st week of May 2013. The patient reports that postoperatively she had complications with hematoma collection under the skin line and fever and drainage of blood through the incision. The patient reports that she has gradually recovered and she felt that she was doing okay over the last few days. She has noted that the incision has opened again and there is some minor drainage and minor blood coming out of that and she also reports some stomach pains and decreased appetite, She reports that her bleeding has not completely stopped after the procedure. It appears that she has been hav ing some on and off bleeding. She is not using anything for contraception at this time and she is breast feeding. PAST MEDICAL/SURGICAL HISTORY Notable for 2 C-sections. SOCIAL HISTORY Denies any alcohol, drugs, or tobacco. Currently is not sexually active. 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 SYSTEMS REVIEW As above. Otherwise negative. PHYSICAL EXAMINATION GENERAL APPEARANCE: In no distress well dressed, well groomed, well developed. PSYCH/NEURO: The patient is conscious, oriented, cooperative, has appropriate affect. VITAL SIGNS Blood pressure 100/62, temperature 36.4, respirations 16. ABDOMEN: Soft, nontender. No guarding. No rebound. The patient has a small panniculus and the incision is located underneath this panniculus. Incision appears to be around 3-4 cm defect located on the left side of the incision. There is no evidence of any infection. There is minor smell from the incision site. There is no evidence of any active bleeding. I did probe the incision and there does not appear to be any fascial defects. This incision is around 0.5 cm deep. At this time we discussed the management of this abnormality. We talked about allowing for healing by secondary intention, and just monitoring and regular wound care. We gave the patient the option of wound debridement and reapproximation as this sometimes might allow faster healing process. After discussion the patient elected to proceed with the approximation. PROCEDURE: Wound debridement and reapproximation. The patient was put in the dorsal supine position. Initially I started by collecting a culture from inside the incision and this was sent to the lab and then Betadine was used to clean the incision site. After cleansing the incision site local anesthetic was used to infiltrate the skin edges. After that, I proceeded with a debridement of the incision and I did freshen the edges of the incision line until there was some bleeding and more vital tissues. At this point, the incision was thoroughly irrigated with normal saline, and then interrupted 2-0 Vicryl stitches were used to approximate the skin. Note good space was left between the stitches to allow for drainage. The patient tolerated the procedure well. At this time the patient was given instructions on proper wound care. I did decide to starther on antibiotics for coverage of potential infection due to the minor smell coming out of the incision, and the patient was instructed to pump and dump at this time until she completes her course of a ntibiotics. IMPRESSION/REPORT/PLAN Miss Belle is a 23-year-old lady who presents around 8 weeks after her section with a wound dehiscence. Today we have performed debridement and reapproximation under local anesthetic. PLAN: 1. The patient is to start Bactrim. 2. Patient is to follow up in 1 week for re-evaluation or earlier as needed. Total time spent with the patient 50 minutes. More than 50% of the time was spent in counseling. Justus Schaefer M.D./ruiz Electronically Signed By: JUSTUS SCHAEFER MD On: 08/22/2013 09:42 AM Source: [facility] [id number] Document Id: [id number] IC ADDRESS TECHNICIAN documented in this encounter Miscellaneous Notes Miscellaneous - Justus Schaefer M.D. 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 Your Goals/Additional instructions: Source: [facility] POWERCHART Document Id: [id number] Miscellaneous - Justus Schaefer M.D. - 07/22/2013 1:39 AM CDT Ambulatory [place] [address] Visit Information Name: NORAH GIMENEZ [facility] Number: [id number] Visit Date: 07/22/2013 01:39:46 Attending Provider: JUSTUS SCHAEFER MD Primary Care Provider: TODD MCBRIDE MD NORAH GIMENEZ has been given the [...] your provider for clarification. Additional Information: Source: [facility] POWERCHART Document Id: [id number] Miscellaneous - Sandra Zarate C.MDelmar - 07/21/2013 1:44 PM CDT Adult Lining Vamper Intake/History Adult Lining Vamper Intake/History Entered On: 07/21/2013 13:46 CDT Performed On: 07/21/2013 13:44 CDT by SANDRA ZARATE Intake Chief Complaint : opening/stomach pain Temperature Core : 36.4 DegC(Converted to: 97.5 DegF) (LOW) Systolic Blood Pressure : 100 mmHg Diastolic Blood Pressure : 62 mmHg NIBP Mean : 75 mmHg BP Location : Left upper extremity Blood Pressure Cuff Size : Regular Actual Weight : 89.9 kg(Converted to: 198 lb 3 oz) Weight Source : Standing scale Dosing Weight Clinic : 89.9 kg SANDRA ZARATE - 07/21/2013 13:44 CDT General Info Information Given By : Patient Languages : Bulgarian SANDRA ZARATE - 07/21/2013 13:44 CDT Subjective Pain Symptoms : Yes SANDRA ZARATE - 07/21/2013 13:44 CDT Pain Pain Assessment Grid Pain 1 Location : Other: insicion Laterality : Bilateral Intensity : 10 SANDRA ZARATE - 07/21/2013 13:44 CDT Dependent Habits Tobacco Use/Currently Using : No Exposure to Tobacco Smoke : Lives with someone who smokes, Other: none Smoking Status : Never smoker SANDRA ZARATE - 07/21/2013 13:44 CDT Caffeine Use Grid Caffeine Use : Current Type : Coffee Frequency : Daily SANDRA ZARATE - 07/21/2013 13:44 CDT [facility] Document Id: [id number]!32 documented in this encounter Plan of Treatment Not on filedocumented as of this encounter Procedures Procedure Name Priority Date/Time Associated Diagnosis Comme nts BACTERIAL CULTURE, Routine 07/21/2013 2:20 PM Res ults for this AEROBIC CDT procedure are i n the results section. BACTERIAL CULTURE, Routine 07/21/2013 2:20 PM Res ults for this ANAEROBIC + SUSC CDT procedure a re in the results section. documented in this encounter Results Bacterial Culture, Anaerobic (07/21/2013 2:20 PM CDT) Component Value Ref Test Analysis Performed At [facility] [employer] Range Method Time Signature Anaerobe POWERCHART Identification Only HXPre No anaerobes POWERCHART isolated. HXFinal No anaerobes POWERCHART isolated. Specimen (Source) Anatomical Collection Method Collection Time Re ceived Time Location / / Volume Laterality Incision 07/21/2013 2:20 PM CDT Justus Schaefer M.D., M.H.A. LAB MICROBIOLOGY - GENERAL O RDERABLES Performing Organization Address City/State/ZIP Code Phon e Number POWERCHART (ABNORMAL) Bacterial Culture, Aerobic (07/21/2013 2:20 PM CDT) Component Value Ref Test Analysis Performed At [facility] [employer] Range Method Time Signature Wound SA (POSITIVE) >=0.5 POWERCHART Culture Wound PROMIR (POSITIVE) >=0.5 POWERCHART Culture HX GS Moderate epithelial POWERCHART cells HX GS Rare POWERCHART polymorphonuclear leukocytes HX GS No organisms seen. POWERCHART HXPre GPC POWERCHART HXPre DIPTH POWERCHART HXPre GNR POWERCHART Comment: Light growth Gram Positive Cocci staphlo coccus species, ??Further studies to follow Heavy growth Diptheroid species No furth er studies done. Rare Gram Negative Rods Further studies to follow HXPre GPC POWERCHART HXPre DIPTH POWERCHART HXPre GNR POWERCHART Comment: Light growth Gram Positive Cocci Presump tive Staphylococcus aureus Identification and susceptibility to follow. Heavy growth Diptheroid species No furth er studies done. Rare Gram Negative Rods Further studies to follow HXPre GPC POWERCHART HXPre DIPTH POWERCHART HXPre GNR POWERCHART HXPre ALPHST POWERCHART Comment: Light growth Gram Positive Cocci Presump tive Staphylococcus aureus Identification and susceptibility to follow. Heavy growth Diptheroid species No furth er studies done. Rare Gram Negative Rods Identification a nd susceptibility to follow. Scant growth Alpha hemolytic strep Susce ptibility testing not indicated. HXPre GPC POWERCHART HXPre DIPTH POWERCHART HXPre GNR POWERCHART HXPre ALPHST POWERCHART Comment: Light growth Gram Positive Cocci Presump tive Staphylococcus aureus Identification and susceptibility to follow. Heavy growth Diptheroid species No furth er studies done. Rare Gram Negative Rods Identification a nd susceptibility to follow. Isolated from anaerobic plates only Scant growth Alpha hemolytic strep Susce ptibility testing not indicated. HXFinal SA POWERCHART HXFinal DIPTH POWERCHART HXFinal PROMIR POWERCHART HXFinal ALPHST POWERCHART Comment: Light growth Staphylococcus aureus See S usceptibility tab. Heavy growth Diptheroid species No furth er studies done. Rare Proteus mirabilis See Susceptibilit y tab. Scant growth Alpha hemolytic strep Susce ptibility testing not indicated. Specimen (Source) Anatomical Collection Method Collection Time Re ceived Time Location / / Volume Laterality Incision 07/21/2013 2:20 PM (Abdomen) CDT Organism Antibiotic Method Susceptibility Staphylococcus aureus Benzylpenicillin SUSCEPTIBILITY, >=0.5: Re sistant ADELITA (MCG/ML) Staphylococcus aureus Ciprofloxacin SUSCEPTIBILITY, <=0.5: Elizabeth ceptible ADELITA (MCG/ML) Staphylococcus aureus Clindamycin SUSCEPTIBILITY, <=0.25: Zelaya sceptible ADELITA (MCG/ML) Staphylococcus aureus Erythromycin SUSCEPTIBILITY, <=0.25: Zelaya sceptible ADELITA (MCG/ML) Staphylococcus aureus Gentamicin SUSCEPTIBILITY, <=0.5: Elizabeth ceptible ADELITA (MCG/ML) Staphylococcus aureus Levofloxacin SUSCEPTIBILITY, 0.25: Susc eptible ADELITA (MCG/ML) Staphylococcus aureus Moxifloxacin SUSCEPTIBILITY, <=0.25: Zelaya sceptible ADELITA (MCG/ML) Staphylococcus aureus Oxacillin SUSCEPTIBILITY, <=0.25: Zelaya sceptible ADELITA (MCG/ML) Staphylococcus aureus Quinupristin + Dalfopristin SUSCEPTIBILITY , <=0.25: Susceptible ADELITA (MCG/ML) Staphylococcus aureus Trimethoprim + SUSCEPTIBILITY, <=10: Susc eptible Sulfamethoxazole ADELITA (MCG/ML) Staphylococcus aureus Tetracycline SUSCEPTIBILITY, <=1: Susce ptible ADELITA (MCG/ML) Staphylococcus aureus Vancomycin SUSCEPTIBILITY, 1: Suscept ible ADELITA (MCG/ML) Proteus mirabilis Ampicillin SUSCEPTIBILITY, >=32: Resistan t ADELITA (MCG/ML) Proteus mirabilis Cefazolin SUSCEPTIBILITY, <=4: Susceptib le ADELITA (MCG/ML) Proteus mirabilis Cefepime SUSCEPTIBILITY, <=1: Susceptib le ADELITA (MCG/ML) Proteus mirabilis Ceftriaxone SUSCEPTIBILITY, <=1: Susceptib le ADELITA (MCG/ML) Proteus mirabilis Ertapenem SUSCEPTIBILITY, <=0.5: Suscept ible ADELITA (MCG/ML) Proteus mirabilis Gentamicin SUSCEPTIBILITY, <=1: Susceptib le ADELITA (MCG/ML) Proteus mirabilis Legend SUSCEPTIBILITY, Legend ADELITA (MCG/ML) Comment: S = Susceptible; I = Interme diate; R = Resistant; N/R = Not Reported; --- = Not Tested; TFG = Thymidine-dependent strain; ESBL = Extended spectrum beta- lactamase; Albert = Beta-lactamase positive; ADELITA = mcg/mL (mg/L); S* = Predicted susceptible interpretation; R* = Predict ed resistant interpretation; EBL? = Suspected ESBL. Confirmatory tests needed to differentiate ESBL from other beta-lactamases; IB = Inducible Beta-lactamase. Appears in plac e of Susceptible with spec ies known to possess inducible beta-lactamases. Proteus mirabilis Levofloxacin SUSCEPTIBILITY, ADELITA <=0.12: Zelaya sceptible (MCG/ML) Proteus mirabilis Piperacillin + Tazobactam SUSCEPTIBILITY, ADELITA <=4: Susceptible (MCG/ML) Proteus mirabilis Trimethoprim + SUSCEPTIBILITY, ADELITA <=20: Susc eptible Sulfamethoxazole (MCG/ML) Proteus mirabilis Tobramycin SUSCEPTIBILITY, ADELITA <=1: Susce ptible (MCG/ML) Justus Schaefer M.D., M.H.A. LAB MICROBIOLOGY - GENERAL O RDERABLES Performing Organization Address City/State/ZIP Code Phon e Number POWERCHART documented in this encounter Visit Diagnoses Not on filedocumented in this encounter Additional Health Concerns Assessment Noted Time PHQ-9 Depression Total Score: 1 11/16/2012 11:45 AM CS T documented as of this encounter
--- OUTSIDE RECORDS SUMMARY | 2022-07-09 20:44 | XMS_ITS | Encounter Summary ---
:1990 Author Organization [facility] Address [address] [place] [address] Care Team Providers Name Role Phone Unavailable Primary Care Provider Unavailable Encounter Details Date Type Department Care Team Description 04/05/2013 Hospital Encounter [facility]X [facility] Todd Dinero [...] do you attend yazdanism or Never 2020 latter-day services? Do you [...] Sign Reading Time Taken Comments Blood Pressure 118/60 04/05/2013 1:24 PM CDT Pulse - - Temperature - - Respiratory Rate - - Oxygen Saturation - - Inhaled Oxygen Concentration - - Weight 93.8 kg (206 lb 12.7 oz) 04/05/2013 1:24 PM CDT Height - - Body Mass Index 42.25 11/23/2012 1:32 PM CLIENT OPERATIONS MANAGER documented in this encounter Progress Notes Todd Aponte M.D. - 04/05/2013 1:20 PM CDT [id number] CHIEF COMPLAINT/REASON FOR VISIT Routine OB visit. HISTORY OF PRESENT ILLNESS This patient is a 22-year-old female with LMP 08/31/2012. EDC 06/07/2013 at 31-0/7 weeks who presents for OB visit. She is doing well. She has no complaints. She reports good movement. No leaking of fluid, vaginal bleeding. No cramping or contractions. No pelvic pressure. No headaches, vision changes. No depression symptoms. Patient does report some burning on urination over the last week. This happens only at night before she goes to bed. She has no discomfort with urination at other times during the day. No flank pain. No hematuria. This has been ongoing for the last week. She would like that evaluated. No fevers or chills. CURRENT MEDICATIONS Generic vitamins. ALLERGIES Are no known drug allergies. PAST MEDICAL/SURGICAL HISTORY 1. History of GERD currently asymptomatic. 2. History of depression currently asymptomatic. 3. History of overdose and suicide attempt currently asymptomatic. Past Surgical History section 2009. VITAL SIGNS WEIGHT 93.8 kg. BLOOD PRESSURE: 118/60. PULSE 72. HEIGHT: 149 cm. PHYSICAL EXAMINATION GENERAL: Well developed, well nourished gravid female in no apparent distress. Alert and oriented times 3. Normal affect. ABDOMEN: Gravid, soft and nontender. Fundal height 31 cm. Positive heart tones 142. Vertex presentation by Darinel's. EXTREMITIES: No edema or tenderness. GENITALIA: Genital exam deferred. SPINE: No CVA tenderness bilaterally. LABS 04/05/2013 urinalysis negative, urine culture obtained results are pending. IMPRESSION/REPORT/PLAN 1. Intrauterine at 31-0/7 weeks. Positive cardiac activity. 2. History of prior section. 3. History of chlamydia in 10/05/2012 treated. 4. Rubella nonimmune status. 5. Obesity. 6. Dysuria in . 7. History of depression, suicide attempt currently asymptomatic. Plan 1. Urinalysis appears normal. Urine culture is obtained. These results are pending. I will contact patient with this result. 2. I discussed the patient's dysuria and discomfort only with urination at night. I encouraged patient to drink fluids and also discussed use of cranberry juice. 3. Follow up in 2 weeks for OB visit with my partner while I am out of town and then in 4 weeks withme. 4. Routine OB precautions, recommendations and instructions are reviewed with patient including movement and kick counts. 5. Plan elective repeat section at term. Todd Aponte M.D./andrews Electronically Signed By: TODD APONTE MD On: 04/07/2013 09:16 AM Source: [facility] MHSDOLBEYNONRADSYS Document Id: [id number] documented in this encounter Procedure Notes Nori Hong L.P.N. - 04/05/2013 1:39 PM CDT Urine Dipstick Urine Dipstick Entered On: 04/05/2013 13:39 CDT Performed On: 04/05/2013 13:39 CDT by NORI HONG Urine Dipstick UA Color POC : Yellow UA Appear POC : Clear UA Leuk POC : Negative UA Nitrite POC : Negative UA Urobilinogen POC : 0.2 mg/dl UA Protein POC : Negative UA pH POC : 7.5 UA Blood POC : Negativ UA Spec Grav POC : 1.020 UA Ketones POC : Negative UA Bili POC : Negative UA Glucose POC : Negative NORI HONG - 04/05/2013 13:39 CDT Source: [facility] POWERCHART Document Id: [id number] CDT!14 documented in this encounter Miscellaneous Notes Miscellaneous - Todd Aponte M.D. 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 - 04/05/2013 1:53 PM CDT [place] [address] Visit Information Name: BARBRA GIMENEZ [facility] Number: [id number] Visit Date: 04/05/2013 13:53:42 Attending Provider: TODD APONTE MD Primary Care [...] your provider for clarification. Additional Information: Source: [facility] POWERCHART Document Id: [id number] Miscellaneous - Nori Hong, L.P.N. - 04/05/2013 1:24 PM CDT Adult Form Stripper Intake/History Adult Form Stripper Intake/History Entered On: 04/05/2013 13:26 CDT Performed On: 04/05/2013 13:24 CDT by NORI HONG Intake Chief Complaint : OB visit 31 weeks LMP Date : 08/31/2012 Systolic Blood Pressure : 118 mmHg Diastolic Blood Pressure : 60 mmHg NIBP Mean : 79 mmHg BP Location : Right upper extremity Blood Pressure Cuff Size : Regular Actual Weight : 93.8 kg(Converted to: 206 lb 13 oz) Weight Source : Standing scale Dosing Weight Clinic : 93.8 kg NORI HONG - 04/05/2013 13:24 CDT General Info Languages : Citizen Of [place] NORI HONG - 04/05/2013 13:24 CDT Subjective Pain Symptoms : Yes NORI HONG - 04/05/2013 13:24 CDT Pain Pain Assessment Grid Pain 1 Location : Abdomen Laterality : Right NORI HONG - 04/05/2013 13:24 CDT Dependent Habits Tobacco Use/Currently Using : No Exposure to Tobacco Smoke : Lives with someone who smokes, Other: none Smoking Status : Never smoker NORI HONG - 04/05/2013 13:24 CDT Caffeine Use Grid Caffeine Use : Current Type : Coffee Frequency : Daily NORI HONG L - 04/05/2013 13:24 CDT Source: [id number]-DENTIST Document Id: [id number] CDT!30 documented in this encounter Plan of Treatment Not on filedocumented as of this encounter Procedures Procedure Name Priority Date/Time Associated Diagnosis Comme nts HX UA NITRITE POC Routine 04/05/2013 1:39 PM Resu lts for this CDT procedure are i n the results section. HX UA GLUCOSE POC Routine 04/05/2013 1:39 PM Resu lts for this CDT procedure are i n the results section. HX UA APPEAR POC Routine 04/05/2013 1:39 PM Resul ts for this CDT procedure are i n the results section. DIPSTICK, POCT, U Routine 04/05/2013 1:39 PM Resu lts for this (DIPC1) CDT procedure are i n the results section. DIPSTICK, POCT, U Routine 04/05/2013 1:39 PM Resu lts for this (DIPC1) CDT procedure are i n the results section. DIPSTICK, POCT, U Routine 04/05/2013 1:39 PM Resu lts for this (DIPC1) CDT procedure are i n the results section. DIPSTICK, POCT, U Routine 04/05/2013 1:39 PM Resu lts for this (DIPC1) CDT procedure are i n the results section. DIPSTICK, POCT, U Routine 04/05/2013 1:39 PM Resu lts for this (DIPC1) CDT procedure are i n the results section. DIPSTICK, POCT, U Routine 04/05/2013 1:39 PM Resu lts for this (DIPC1) CDT procedure are i n the results section. DIPSTICK, POCT, U Routine 04/05/2013 1:39 PM Resu lts for this (DIPC1) CDT procedure are i n the results section. DIPSTICK, POCT, U Routine 04/05/2013 1:39 PM Resu lts for this (DIPC1) CDT procedure are i n the results section. POCT KETONE, URINE Routine 04/05/2013 1:39 PM Res ults for this CDT procedure are i n the results section. BACTERIAL CULTURE, Routine 04/05/2013 1:31 PM Res ults for this AEROBIC, URINE CDT procedure are in the results section. documented in this encounter Results HX UA GLUCOSE POC (04/05/2013 1:39 PM CDT) P athologist Signature Glucose, POCT, Negative POWERCHART U Specimen (Source) Anatomical Collection Method Collection Time Re ceived Time Location / / Volume Laterality 04/05/2013 1:39 PM CDT Historical Provider LAB HISTORICAL ORDERS Performing Organization Address City/[facility]/ZIP Code Phon e Number POWERCHART Dipstick, POCT, Urine (lab) (04/05/2013 1:39 PM CDT) athologist Signature Bilirubin, Negative POWERCHART POCT, U Specimen (Source) Anatomical Collection Method Collection Time Re ceived Time Location / / Volume Laterality 04/05/2013 1:39 PM CDT Historical Provider LAB POCT ORDERABLES - DEVICE Performing Organization Address City/[facility]/ZIP Code Phon e Number POWERCHART Ketone, Urine, POCT (04/05/2013 1:39 PM CDT) athologist Signature Ketone, POCT, Negative POWERCHART U Specimen (Source) Anatomical Collection Method Collection Time Re ceived Time Location / / Volume Laterality 04/05/2013 1:39 PM CDT Historical Provider LAB POCT ORDERABLES-MANUAL Performing Organization Address City/[facility]/ZIP Code Phon e Number POWERCHART Dipstick, POCT, Urine (lab) (04/05/2013 1:39 PM CDT) P athologist Signature Specific 1.020 POWERCHART [place], POCT, U Specimen (Source) Anatomical Collection Method Collection Time Re ceived Time Location / / Volume Laterality 04/05/2013 1:39 PM CDT Historical Provider LAB POCT ORDERABLES - DEVICE Performing Organization Address [facility]/ZIP Code Phon e Number POWERCHART Dipstick, POCT, Urine (lab) (04/05/2013 1:39 PM CDT) P athologist Signature Blood, POCT, U Negative POWERCHART Specimen (Source) Anatomical Collection Method Collection Time Re ceived Time Location / / Volume Laterality 04/05/2013 1:39 PM CDT Historical Provider LAB POCT ORDERABLES - DEVICE Performing Organization Address [facility]/ZIP Code Phon e Number POWERCHART Dipstick, POCT, Urine (lab) (04/05/2013 1:39 PM CDT) P athologist Signature pH, POCT, Urine 7.5 POWERCHART Specimen (Source) Anatomical Collection Method Collection Time Re ceived Time Location / / Volume Laterality 04/05/2013 1:39 PM CDT Historical Provider LAB POCT ORDERABLES - DEVICE Performing Organization Address [facility]/ZIP Code Phon e Number POWERCHART Dipstick, POCT, Urine (lab) (04/05/2013 1:39 PM CDT) P athologist Signature Protein, POCT, Negative POWERCHART U Specimen (Source) Anatomical Collection Method Collection Time Re ceived Time Location / / Volume Laterality 04/05/2013 1:39 PM CDT Historical Provider LAB POCT ORDERABLES - DEVICE Performing Organization Address [facility] Phon e Number POWERCHART Dipstick, POCT, Urine (lab) (04/05/2013 1:39 PM CDT) [facility] Signature Urobilinogen, 0.2 mg/dl POWERCHART POCT, Urine Specimen (Source) Anatomical Collection Method Collection Time Re ceived Time Location / / Volume Laterality 04/05/2013 1:39 PM CDT Historical Provider LAB POCT ORDERABLES - DEVICE Performing Organization Address City/[facility]/ZIP Code Phon e Number POWERCHART HX UA NITRITE POC (04/05/2013 1:39 PM CDT) P athologist Signature Nitrites, Negative POWERCHART POCT, U Specimen (Source) Anatomical Collection Method Collection Time Re ceived Time Location / / Volume Laterality 04/05/2013 1:39 PM CDT Historical Provider LAB HISTORICAL ORDERS Performing Organization Address City/State/ZIP Code Phon e Number POWERCHART Dipstick, POCT, Urine (lab) (04/05/2013 1:39 PM CDT) P athologist Signature Leukocytes, Negative POWERCHART POCT, U Specimen (Source) Anatomical Collection Method Collection Time Re ceived Time Location / / Volume Laterality 04/05/2013 1:39 PM CDT Historical Provider LAB POCT ORDERABLES - DEVICE Performing Organization Address City/[facility]/ZIP Code Phon e Number POWERCHART HX UA APPEAR POC (04/05/2013 1:39 PM CDT) P athologist Signature Appearance Clear POWERCHART Specimen (Source) Anatomical Collection Method Collection Time Re ceived Time Location / / Volume Laterality 04/05/2013 1:39 PM CDT Historical Provider LAB HISTORICAL ORDERS Performing Organization Address [facility]/ZIP Code Phon e Number POWERCHART Dipstick, POCT, Urine (lab) (04/05/2013 1:39 PM CDT) athologist Signature Color Yellow POWERCHART Specimen (Source) Anatomical Collection Method Collection Time Re ceived Time Location / / Volume Laterality 04/05/2013 1:39 PM CDT Historical Provider LAB POCT ORDERABLES - DEVICE Performing Organization Address City/[facility]/ZIP Code Phon e Number POWERCHART Bacterial Culture, Aerobic, Urine (04/05/2013 1:31 PM CDT) [facility] Method Time Signature Bacterial POWERCHART Culture, Aerobic, Urine HXFinal See POWERCHART scanned/paper report. Test performed at [facility]. Specimen (Source) Anatomical Collection Method Collection Time Re ceived Time Location / / Volume Laterality Urine, Clean 04/05/2013 1:31 PM Catch CDT Todd Aponte M.D. LAB MICROBIOLOGY - GENERAL O RDERABLES Performing Organization Address City/State/ZIP Code Phon e Number POWERCHART documented in this encounter Visit Diagnoses Not on filedocumented in this encounter Additional Health Concerns Assessment Noted Time PHQ-9 Depression Total Score: 1 11/16/2012 11:45 AM CS T documented as of this encounter
--- OUTSIDE RECORDS SUMMARY | 2022-07-09 20:44 | XMS_ITS | Encounter Summary ---
:1990 Author Organization [facility] Address [address] [place] [address] Care Team Providers Name Role Phone Unavailable Primary Care Provider Unavailable Encounter Details Date Type Department Care Team Description 02/16/2014 Hospital Encounter HX [facility] Todd Dinero [...] do you attend buddhist or Never 2020 taoism services? Do you [...] Reading Time Taken Comments Blood Pressure 102/60 02/16/2014 2:09 PM CDT Pulse - - Temperature - - Respiratory Rate - - Oxygen Saturation - - Inhaled Oxygen Concentration - - Weight 91.4 kg (201 lb 8 oz) 02/16/2014 2:09 PM CDT Height - - Body Mass Index 41.17 11/23/2012 1:32 PM OUTSIDE DELIVERER documented in this encounter Progress Notes Todd Aponte M.D. - 02/16/2014 2:02 PM CDT [id number] CHIEF COMPLAINT/REASON FOR VISIT Routine OB visit. HISTORY OF PRESENT ILLNESS This patient is a 23-year-old G3, P2-0-0-2 female with LMP of 09/20/2013, with an EDC of 06/27/2014,at 21 and 2/7 weeks. Patient presents for OB visit and OB ultrasound. She is doing well. She has no complaints. She reports active movement. She denies leaking of fluid. No vaginal bleeding. No cramping or contractions. No pelvic pressure. No headaches or vision changes. No depression symptoms. No difficulty urinating. No change in bowel habits. She is very happy to be . Her nausea symptoms have resolved. ALLERGIES No known drug allergies. MEDICATIONS Generic vitamins. PAST MEDICAL/SURGICAL HISTORY PAST MEDICAL HISTORY: 1. History of GERD, on no medication. 2. Obesity. 3. Seasonal allergic rhinitis on no medication. 4. History of depression, on no medication. 5. History of overdose and suicide attempt in the past. PAST SURGICAL HISTORY: 1. section, 2009. 2. section, 2012. PAST OBSTETRICAL HISTORY: 1. section, 11/26/2009. 2. section, 06/01/2013. SOCIAL HISTORY The patient is single. She has a new partner. She reports that he is involved in this . No tobacco, alcohol, or drug use. She has a history of chlamydia in 2012, which was treated. No history of cervical dysplasia. No history of abuse. VITAL SIGNS Weight 91.4 kg, blood pressure 102/60, pulse 70, height not performed. PHYSICAL EXAMINATION GENERAL: Well-developed, well-nourished, obese, gravid female in no apparent distress. Alert and oriented times 3. Normal affect. ABDOMEN: Gravid, obese, soft and nontender. Fundal height is 21 cm. Positive Doptones are auscultated at 146 beats per minute. Well-healed Pfannenstiel skin incision. EXTREMITIES: No edema or tenderness. GENITAL: Deferred. DIAGNOSTICS LABORATORY: 01/22/2014: Blood type O positive, antibody screen negative, hemoglobin 12.0, gmfsiymvyh45.5, platelets 267, rubella not immune, serology negative, chlamydia negative, gonorrhea negative, hepatitis B surface antigen negative, HIV negative, TSH 0.6, vitamin D 95. 01/02/2014: Pap smear negative for intraepithelial lesion or malignancy. ULTRASOUND: 02/16/2014: An OB ultrasound was performed. Please see separate report for details. IMPRESSION/REPORT/PLAN 1. Intrauterine at 21 and 2/7 weeks. Positive cardiac activity. 2. History of 2 prior sections. 3. Rubella nonimmune status. 4. Obesity. 5. History of depression, currently stable off medication. 6. History of gastroesophageal reflux disorder, currently stable off medication. 7. History of seasonal allergic rhinitis. Currently stable off medication. PLAN: 1. I reviewed the OB lab results with the patient, with normal findings. I discussed rubella nonimmune status with the patient. She will need rubella immunization . 2. I reviewed OB ultrasound results with the patient showing intrauterine at 20 and 5/7 weeks consistent with dates. Placenta is located anteriorly. No placenta previa. No gross anomalies are visualized. 3. I would like the patient to follow up in 4 weeks for OB visit or be seen sooner as needed. 4. Routine OB precautions,recommendations, and instructions are reviewed with the patient, includingfetal movement and kick counts. 5. I recommend the patient receive Gardasil immunization . 6. I recommend elective repeat section at term. The patient has had 2 prior sections and no vaginal deliveries. I spent 30 minutes [id number] time with the patient, with over 50% of that time spent in counseling. Todd Aponte M.D./ruiz Electronically Signed By: TODD APONTE MD On: 02/16/2014 09:41 PM Source: [facility] MHSDOLBEYNONRADSYS Document Id: [id number] documented in this encounter Miscellaneous Notes Miscellaneous - Todd Aponte M.D. - 02/16/2014 2:28 PM CDT Ambulatory Patient Summary [address] [id number] Visit Information Name: BARBRA GIMENEZ [facility] Number: [id number] Current Date: 02/16/2014 14:28:55 Physicians Attending Provider: TODD APONTE MD Primary [...] the Following Medications: Medication list as of 02-16-14 14:28 Attention: If you have any medications at [...] Electronically Signed By: TODD APONTE MD Signed On:16-FEB-2014 14:28:51 Your Allergies & Intolerances Substance Reaction Symptoms Category Comments Cats Other has allergy to cats Your Problem List Problem Status Onset Comments Family History of Diabetes Mellitus Active Mild Hyperemesis Gravidarum, Antepartum Condition or Complication Active 10/26/2012 Previous delivery, antepartum Active 10/27/2013 Your Upcoming Appointments Date Time Location Reason Provider 03/16/2014 14:00 FBCV ENGINE SETTER ob Todd Aponte MD Attention: Contact your local Clinic if further appointment detail needed. Your Goals/Additional instructions: Source: [facility] POWERCHART Document Id: [id number] Miscellaneous - Todd Aponte M.D. - 02/16/2014 2:28 PM CDT Ambulatory Discharge Medication List [address] [id number] Visit Information Name: BARBRA GIMENEZ [facility] Number: [id number] Visit Date: 02/16/2014 14:28:54 Attending Provider: TODD APONTE MD Primary Care Provider: TODD APONTE MD BARBAR GIMENEZ has been given the following list [...] the Following Medications: Medication list as of 02-16-14 14:28 Attention: If you have any medications at [...] Electronically Signed By: TODD APONTE MD Signed On:16-FEB-2014 14:28:51 Additional Information: Source: [facility] POWERCHART Document Id: [id number] Miscellaneous - Nori Hong LWanderPWanderN. - 02/16/2014 2:09 PM CDT Adult Filter Pulp Washer Intake/History Adult Filter Pulp Washer Intake/History Entered On: 02/16/2014 14:09 CDT Performed On: 02/16/2014 14:09 CDT by NORI HONG Intake Chief Complaint : OB visit US 21 2/7 weeks Systolic Blood Pressure : 102 mmHg Diastolic Blood Pressure : 60 mmHg NIBP Mean : 74 mmHg BP Location : Left upper extremity Blood Pressure Cuff Size : Regular Actual Weight : 91.4 kg(Converted to: 201 lb 8 oz) Weight Source : Standing scale Dosing Weight Clinic : 91.4 kg NORI HONG - 02/16/2014 14:09 CDT General Info Languages : Syriac NORI HONG - 02/16/2014 14:09 CDT Subjective Pain Symptoms : No NORI HONG - 02/16/2014 14:09 CDT Dependent Habits Tobacco Use/Currently Using : No Exposure to Tobacco Smoke : Lives with someone who smokes, Other: none Smoking Status : Never smoker NORI HONG - 02/16/2014 14:09 CDT Caffeine Use Grid Caffeine Use : Current Type : Coffee Frequency : Daily NORI HONG - 02/16/2014 14:09 CDT Source: [employer] Document Id: [id number] CDT!24 documented in this encounter Plan of Treatment Not on filedocumented as of this encounter Visit Diagnoses Not on filedocumented in this encounter Additional Health Concerns Assessment Noted Time PHQ-9 Depression Total Score: 1 11/16/2012 11:45 AM CS T documented as of this encounter
--- OUTSIDE RECORDS SUMMARY | 2022-07-09 20:44 | XMS_ITS | Encounter Summary ---
:1990 Author Organization [facility] Address [address] [place] [address] Care Team Providers Name Role Phone Unavailable Primary Care Provider Unavailable Encounter Details Date Type Department Care Team Description 08/04/2013 Hospital Encounter HX [facility] Justus Middleton M .D., M.H.A. [address] [facility] [place] [id number] (Wo rk) Social History Tobacco Use Types [...] or relatives? How often do you attend jainism or Never 2020 denominational services? Do you belong to any clubs or No 06/25/2021 organizations such as jainism groups, unions, fraternal or athletic groups, or [...] encounter Progress Notes Justus Schaefer M.D. - 08/04/2013 3:25 PM CST [id number] CHIEF COMPLAINT/REASON FOR VISIT Presenting for followup. HISTORY OF PRESENT ILLNESS Ms. Norah is a 23-year-old lady previously evaluated for post incision problems and she had incision dehiscence and infection. We have performed incision debridement and reapproximation and started her on treatment, and I did perform serial followup. At this time the patient presents today for re-evaluation. Has no complaints. SYSTEMS REVIEW Negative. PHYSICAL EXAMINATION GENERAL APPEARANCE: Not in acute distress. ABDOMEN: Soft, nontender. No guarding, no rebound. Incision appears to have healed very well. At this time there is some residual suture material at the level of the incision. I did remove those residual stitches. The incision has almost completely healed at this time. I did reassure the patient aboutthe findings today. At this time she will not need any further followup. She herself is very happy with the results and today the healing process appears to be almost complete and I do not feel that she would need any further followup for this issue. At this time we discussed that she will need to follow up for an annual exam to make sure that she is up to date on all her routine screening tests. Patient understands, all her questions were answered. Total time spent with the patient 10 minutes, more than 50% of the time was spent in counseling. Justus Schaefer M.D./naila Electronically Signed By: JUSTUS SCHAEFER MD On: 09/06/2013 08:17 AM Source: [facility] MHSDOLBEYNONRADSYS Document Id: [id number] PRESSMAN documented in this encounter Miscellaneous Notes Miscellaneous - Justus Schaefer M.D. - 08/04/2013 8:01 PM CST Ambulatory Patient Summary [place] [address] [place] [address] Visit Information Name: NORAH GIMENEZ [facility] Number: [id number] Current Date: 08/04/2013 20:01:25 Physicians Attending Provider: JUSTUS SCHAEFER MD Primary Care Provider: TODD MCBRIDE MD NORAH GIMENEZ MUKESH has been given the following [...] Upcoming Appointments Date Time Location Reason Provider 08/16/2013 15:15 ALCL SANDBLASTING SUPERVISOR annual Luigi AVALOS, Kaleigh Garner Attention: Contact your local Clinic if further appointment detail needed. Your Goals/Additional instructions: Source: [facility] POWERCHART Document Id: [id number] PRESSMAN Miscellaneous - Justus Schaefer M.D. - 08/04/2013 8:01 PM CST Ambulatory Depart Summary [place] [address] [place] [address] Visit Information Name: NORAH GIMENEZ [facility] Number: [id number] Visit Date: 08/04/2013 20:01:24 Attending Provider: JUSTUS SCHAEFER MD Primary Care [...] your provider for clarification. Additional Information: Source: [facility] POWERCHART Document Id: [id number] PRESSMAN Miscellaneous - Patti Roberts, R.N. - 08/04/2013 3:54 PM CST Adult Home Coordinator Intake/History Adult Home Coordinator Intake/History Entered On: 08/04/2013 15:55 WEB PRESSMAN Performed On: 08/04/2013 15:54 WEB PRESSMAN by PATTI ROBERTS LPN Intake Chief Complaint : post -incision check Ambulatory Intake Additional Information : pp depression screening score =2. pt is PATTI ROBERTS LPN - 08/04/2013 15:54 WEB PRESSMAN General Info Information Given By : Patient Languages : Macedonian PATTI ROBERTS LPN - 08/04/2013 15:54 WEB PRESSMAN Subjective Pain Symptoms : No PATTI ROBERTS [facility] - 08/04/2013 15:54 WEB PRESSMAN Dependent Habits Tobacco Use/Currently Using : No Exposure to Tobacco Smoke : Lives with someone who smokes, Other: none Smoking Status : Never smoker PATTI ROBERTS [facility] - 08/04/2013 15:54 WEB PRESSMAN Caffeine Use Grid Caffeine Use : Current Type : Coffee Frequency : Daily PATTI ROBERTS [facility] - 08/04/2013 15:54 WEB PRESSMAN Source: [employer] Document Id: [id number] WEB PRESSMAN!18 PRESSMAN documented in this encounter Plan of Treatment Not on filedocumented as of this encounter Visit Diagnoses Not on filedocumented in this encounter Additional Health Concerns Assessment Noted Time PHQ-9 Depression Total Score: 1 11/16/2012 11:45 AM CS T documented as of this encounter
--- OUTSIDE RECORDS SUMMARY | 2022-07-09 20:44 | XMS_ITS | Encounter Summary ---
:1990 Author Organization [facility] Address [address] [place] [address] Care Team Providers Name Role Phone Unavailable Primary Care Provider Unavailable Encounter Details Date Type Department Care Team Description 03/08/2013 Hospital Encounter HX [facility] Todd Dinero [...] do you attend jain or Never 2020 synagogue services? Do you [...] Sign Reading Time Taken Comments Blood Pressure 120/62 03/08/2013 9:58 AM CDT Pulse - - Temperature - - Respiratory Rate - - Oxygen Saturation - - Inhaled Oxygen Concentration - - Weight 93.5 kg (206 lb 2.1 oz) 03/08/2013 9:58 AM CDT Height - - Body Mass Index 42.12 11/23/2012 1:32 PM DIRECTOR FIXED INCOME documented in this encounter Progress Notes Todd Aponte M.D. - 03/08/2013 9:52 AM CDT [id number] CHIEF COMPLAINT/REASON FOR VISIT Routine OB visit. HISTORY OF PRESENT ILLNESS This patient is a 22-year-old G2, P1-0-0-1 female with LMP 08/31/2012. EDC of 06/07/2013 at 27-0/7 weeks. Patient presents for OB visit. She is doing well. She reports good movement. She denies cramping or contractions. No pelvic pressure. No leaking of fluid or vaginal bleeding. No headaches orvision changes. No depression symptoms. CURRENT MEDICATIONS Generic vitamins. ALLERGIES No known drug allergies. PAST MEDICAL/SURGICAL HISTORY 1. History of GERD, currently asymptomatic. 2. History depression, currently asymptomatic. 3. History of overdose and suicide attempt, currently asymptomatic. PAST SURGICAL HISTORY section, 2009. VITAL SIGNS WEIGHT: 93.5 kg. BLOOD PRESSURE: 120/62. HEIGHT: 149 cm. PHYSICAL EXAM GENERAL: Well-developed, well-nourished gravid female in no apparent distress. Alert and oriented times 3. Normal affect. ABDOMEN: Gravid, soft and nontender. Fundal height is 28 cm. Positive heart tones, 152 beats. Vertex presentation by Darinel's. EXTREMITIES: No edema or tenderness. Genital exam deferred. LABS: 03/08/2013, diabetic screen 152, hemoglobin 11.2. IMPRESSION/REPORT/PLAN 1. Intrauterine at 27-0/7 weeks. Positive cardiac activity. 2. History of prior section. 3. History of chlamydia in , 10/05/2012, treated. 4. Rubella, nonimmune status. 5. Obesity. 6. History of depression and suicide attempt, currently asymptomatic. 7. Elevated diabetic screen. PLAN 1. I reviewed Glucola results with the patient. She had an elevated diabetic screen at 152. Her hemoglobin level is 11.2. I recommend a 3-hour GTT; this is ordered. The patient will go to the front andhave this scheduled. 2. I discussed diabetes in with the patient. The patient has various family numbers with diabetes. I recommend the patient follow an ADA diet and I recommend we check a 3-hour GTT. 3. I would like the patient followup in 2 weeks for OB visit or be seen sooner as needed. 4. Routine OB precautions, recommendations, instructions are reviewed with the patient, including movement and kick counts. 5. Plan elective repeat section at term. 6. Routine depression precautions are reviewed with the patient. Todd Aponte M.D./ryan Electronically Signed By: TODD APONTE MD On: 03/13/2013 08:27 AM Source: [facility] MHSDOLBEYNONRADSYS Document Id: [id number] documented in this encounter Procedure Notes Nori Hong LWanderP.N. - 03/08/2013 10:04 AM CDT Glucose 1 Hr OB POC Glucose 1 Hr OB POC Entered On: 03/08/2013 10:04 CDT Performed On: 03/08/2013 10:04 CDT by NORI HONG Glucose 1 Hr OB POC Glucose 1 Hr OB POC Result : 152 mg/dL (HI) Site : Finger, Right NORI HONG - 03/08/2013 10:04 CDT Source: [facility] [employer] Document Id: [id number] CDT!4 Nori Hong L.P.NWander - 03/08/2013 10:04 AM CDT Hemoglobin POC Hemoglobin POC Entered On: 03/08/2013 10:05 CDT Performed On: 03/08/2013 10:04 CDT by NORI HONG Hemoglobin POC Hgb POC : 11.6 gm/dL (LOW) Site : Finger, Right NORI HONG - 03/08/2013 10:04 CDT Source: [facility] [employer] Document Id: [id number] CDT!4 documented in this encounter Miscellaneous Notes Miscellaneous - Todd Aponte M.D. - 03/08/2013 10:19 AM CDT Ambulatory Patient Summary [address] [address] Visit Information Name: BARBRA GIMENEZ [facility] Number: [id number] Current Date: 03/08/2013 10:19:00 Physicians Attending Provider: TODD APONTE MD Primary [...] No Appointments found Your Goals/Additional instructions: Source: [facility] POWERCHART Document Id: [id number] Miscellaneous - Todd Aponte M.D. - 03/08/2013 10:18 AM CDT Ambulatory Depart Summary [address] [address] Visit Information Name: AMMY BARBRAJOSEY MAYORGA [facility] Number: [id number] Visit Date: 03/08/2013 10:18:59 Attending Provider: TODD APONTE MD Primary Care [...] your provider for clarification. Additional Information: Source: [facility] POWERCHART Document Id: [id number] Miscellaneous - Nori Hong, L.P.N. - 03/08/2013 9:58 AM CDT Adult Reinforcing Steel Worker Intake/History Adult Reinforcing Steel Worker Intake/History Entered On: 03/08/2013 9:59 CDT Performed On: 03/08/2013 9:58 CDT by NORI HONG Intake Chief Complaint : OB visit 27 weeks LMP Date : 08/31/2012 Systolic Blood Pressure : 120 mmHg Diastolic Blood Pressure : 62 mmHg NIBP Mean : 81 mmHg BP Location : Right upper extremity Blood Pressure Cuff Size : Regular Actual Weight : 93.5 kg(Converted to: 206 lb 2 oz) Weight Source : Standing scale Dosing Weight Clinic : 93.5 kg NORI HONG - 03/08/2013 9:58 CDT General Info Languages : Danish NORI HONG - 03/08/2013 9:58 CDT Subjective Pain Symptoms : No NORI HONG - 03/08/2013 9:58 CDT Dependent Habits Tobacco Use/Currently Using : No Exposure to Tobacco Smoke : Lives with someone who smokes, Other: none Smoking Status : Never smoker NORI HONG - 03/08/2013 9:58 CDT Caffeine Use Grid Caffeine Use : Current Type : Coffee Frequency : Daily NORI HONG - 03/08/2013 9:58 CDT [facility] [employer] POWERCHART Document Id: [id number] CDT!25 documented in this encounter Plan of Treatment Not on filedocumented as of this encounter Procedures Procedure Name Priority Date/Time Associated Comments Diagnosis HEMOGLOBIN (HGB), Routine 03/08/2013 10:05 AM Res ults for this POCT, B CDT procedure are i n the results section. HX GLUCOSE 1 HR OB Routine 03/08/2013 10:04 AM Re sults for this POC RESULT CDT procedure are i n the results section. documented in this encounter Results Hemoglobin (HGB), POCT (03/08/2013 10:05 AM CDT) P athologist Signature Hemoglobin 11.6 GMDL POWERCHART Specimen (Source) Anatomical Collection Method Collection Time Re ceived Time Location / / Volume Laterality 03/08/2013 10:05 AM CDT Historical Provider LAB POCT ORDERABLES - DEVICE Performing Organization Address City/[facility] Code Phon e Number POWERCHART HX GLUCOSE 1 HR OB POC RESULT (03/08/2013 10:04 AM CDT) P athologist Signature HX Glucose 1 Hr 152 MGDL POWERCHART Ob Specimen (Source) Anatomical Collection Method Collection Time Re ceived Time Location / / Volume Laterality 03/08/2013 10:04 AM CDT Historical Provider LAB HISTORICAL ORDERS Performing Organization Address City/[facility]/ZIP Code Phon e Number POWERCHART documented in this encounter Visit Diagnoses Not on filedocumented in this encounter Additional Health Concerns Assessment Noted Time PHQ-9 Depression Total Score: 1 11/16/2012 11:45 AM CS T documented as of this encounter
--- OUTSIDE RECORDS SUMMARY | 2022-07-09 20:44 | XMS_ITS | Encounter Summary ---
:1990 Author Organization [facility] Address [address] [place] [address] Care Team Providers Name Role Phone Unavailable Primary Care Provider Unavailable Encounter Details Date Type Department Care Team Description 05/04/2013 Hospital Encounter HX [facility] Todd Dinero [...] do you attend spiritism or Never 2020 anglican services? Do you belong to any clubs [...] Reading Time Taken Comments Blood Pressure 120/68 05/04/2013 1:32 PM CDT Pulse - - Temperature - - Respiratory Rate - - Oxygen Saturation - - Inhaled Oxygen Concentration - - Weight 100 kg (220 lb 14.4 oz) 05/04/2013 1:32 PM CDT Height - - Body Mass Index 45.13 11/23/2012 1:32 PM RISK ADJUSTMENT SPECIALIST documented in this encounter Progress Notes Todd Aponte M.D. - 05/04/2013 1:28 PM CDT [id number] CHIEF COMPLAINT / REASON FOR VISIT Routine OB visit HISTORY OF PRESENT ILLNESS This patient is a 22-year-old 001 female with LMP of 08/31/2012. EDC of 06/07/2013 at 35-1/7 week. Patient presents for OB visit. She is doing well. She has some pressure when she urinates. This been ongoing for a month. No dysuria, no flank pain. No hematuria. No cramping or contractions. No pelvic pressure. No leaking of fluid. No vaginal bleeding. No headaches, vision changes. No depression symptoms. No fevers or chills. CURRENT MEDICATIONS Generic vitamins. ALLERGIES No known drug allergies. PAST MEDICAL/SURGICAL HISTORY 1. GERD currently asymptomatic 2. Depression currently asymptomatic 3. History of overdose and suicide attempt currently asymptomatic. PAST MEDICAL/SURGICAL HISTORY section 2009. VITAL SIGNS WEIGHT 100.2 kg BLOOD PRESSURE: 120/68 PULSE 68 HEIGHT: 149 cm. PHYSICAL EXAMINATION GENERAL: Well developed, well nourished gravid female in no apparent distress. Alert and oriented times 3. Normal affect. ABDOMEN: Gravid, soft and nontender. Fundal height is 35 cm. Positive heart tones 140. Vertex presentation by Darinel's. EXTREMITIES: No edema or tenderness. GENITALIA: Cervix is closed, 4 cm thick, -1 station cell presentation and firm. SPINE: No CVA tenderness bilaterally. LABS 04/05/2013 urine culture no growth. LABS 05/04/2013 urinalysis negative. No protein, no hematuria. No leukocyte esterase, negative ketones. LABS 05/04/2013 GBS culture obtained and results are pending. IMPRESSION/REPORT/PLAN 1 Intrauterine at 35-1/7 week. Positive cardiac activity. 2. History of prior section. 3. History of chlamydia in 10/05/2012 treated 4. Rubella nonimmune status. 5. Obesity 6. Dysuria in with normal urinalysis. 7. History depression, suicide attempt currently asymptomatic PLAN 1. Urinalysis is normal. Last urine culture is no growth. Patient's cervix is closed and thick. No evidence of contractions or cervical change. 2. I encourage fluids and hydration. I discussed use of cranberry juice. Reassurance given to the patient about her current symptoms. 3. I recommend elective repeat section at term. The patient would like to have the surgery on 06/01/2013 at 39-1/7 week. I will get this scheduled at [facility] 4. Follow up in 1 week for OB visit or be seen sooner. 5. Routine OB precautions, recommendations and instructions are reviewed with the patient 6. GBS culture obtained today per protocol. 7. I spent 25 minutes face to face with patient discussing her symptoms. Todd Aponte M.D./kalin Electronically Signed By: TODD APONTE MD On: 05/08/2013 05:07 PM Source: [facility] MHSDOLBEYNONRADSYS Document Id: [id number] documented in this encounter Nursing Notes Nori Hong L.P.N. - 05/04/2013 2:36 PM CDT Repeat scheduled Patient has been scheduled for a repeat on 06-01-[address] Lorenz notified to be present for infants provider. Electronically Signed By: NORI HONG On: 05/04/2013 02:38 PM Source: [facility] POWERCHART Document Id: [id number] documented in this encounter Miscellaneous Notes Miscellaneous - Todd Aponte M.D. - 05/04/2013 1:52 PM CDT Ambulatory Patient Summary [facility] [address] [place] [address] Visit Information Name: BARBRA GIMENEZ [facility] Number: [id number] Current Date: 05/04/2013 13:52:19 Physicians Attending Provider: TODD APONTE MD Primary Care Provider: OTDD APONTE MD Your Medications Here is a [...] No Appointments found Your Goals/Additional instructions: Source: [facility] POWERCHART Document Id: [id number] Miscellaneous - Todd Aponte M.D. - 05/04/2013 1:52 PM CDT [place] [address] Visit Information Name: BARBRA GIMENEZ MUKESH [facility] Number: [id number] Visit Date: 05/04/2013 13:52:18 Attending Provider: TODD APONTE MD Primary Care [...] your provider for clarification. Additional Information: Source: [facility] [employer] Document Id: [id number] Miscellaneous - Nori Hong L.PWanderN. - 05/04/2013 1:32 PM CDT Adult Electric Blanket Wirer Intake/History Adult Electric Blanket Wirer Intake/History Entered On: 05/04/2013 13:34 CDT Performed On: 05/04/2013 13:32 CDT by NORI HONG Intake Chief Complaint : OB visit 35 1/7 weeks LMP Date : 08/31/2012 Systolic Blood Pressure : 120 mmHg Diastolic Blood Pressure : 68 mmHg NIBP Mean : 85 mmHg BP Location : Right upper extremity Blood Pressure Cuff Size : Regular Actual Weight : 100.2 kg(Converted to: 220 lb 14 oz) Weight Source : Standing scale Dosing Weight Clinic : 100.2 kg NORI HONG - 05/04/2013 13:32 CDT General Info Languages : Mauritanian NORI HONG - 05/04/2013 13:32 CDT Subjective Pain Symptoms : No NORI HONG - 05/04/2013 13:32 CDT Dependent Habits Tobacco Use/Currently Using : No Exposure to Tobacco Smoke : Lives with someone who smokes, Other: none Smoking Status : Never smoker NORI HONG - 05/04/2013 13:32 CDT Caffeine Use Grid Caffeine Use : Current Type : Coffee Frequency : Daily NORI HONG - 05/04/2013 13:32 CDT Source: [facility] [employer] Document Id: [id number] CDT!25 documented in this encounter Plan of Treatment Not on filedocumented as of this encounter Procedures Procedure Name Priority Date/Time Associated Diagnosis Comme nts GRP B STREP (S. Routine 05/04/2013 1:36 PM Result s for this AGALACTIAE) CULTURE CDT procedur e are in the results section. documented in this encounter Results Grp B Strep (S. Agalactiae) Culture (05/04/2013 1:36 PM CDT) [facility] Method Time Signature Grp B Strep POWERCHART (S. agalactiae) Culture HXFinal See POWERCHART scanned/paper report. Test performed at [facility]. Specimen (Source) Anatomical Collection Method Collection Time Re ceived Time Location / / Volume Laterality Vaginal/Rectum 05/04/2013 1:36 PM CDT Todd Aponte M.D. LAB MICROBIOLOGY - GENERAL O RDERABLES Performing Organization Address City/State/ZIP Code Phon e Number POWERCHART documented in this encounter Visit Diagnoses Not on filedocumented in this encounter Additional Health Concerns Assessment Noted Time PHQ-9 Depression Total Score: 1 11/16/2012 11:45 AM CS T documented as of this encounter
--- OUTSIDE RECORDS SUMMARY | 2022-07-09 20:44 | XMS_ITS | Encounter Summary ---
:1990 Author Organization [facility] Address [address] [place] [address] Care Team Providers Name Role Phone Unavailable Primary Care Provider Unavailable Encounter Details Date Type Department Care Team Description 10/27/2013 Hospital Encounter [facility]X [facility] Todd Dinero [...] do you attend mormonism or Never 2020 restorationist services? Do you [...] Reading Time Taken Comments Blood Pressure 118/72 10/27/2013 1:58 PM OFFSET PRESS ASSISTANT Pulse 70 10/27/2013 1:58 PM OFFSET PRESS ASSISTANT Temperature - - Respiratory Rate 16 10/27/2013 1:58 PM OFFSET PRESS ASSISTANT Oxygen Saturation - - Inhaled Oxygen Concentration - - Weight 90.3 kg (199 lb 1.2 oz) 10/27/2013 1:58 PM OFFSET PRESS ASSISTANT Height - - Body Mass Index 40.67 11/23/2012 1:32 PM OFFSET PRESS ASSISTANT documented in this encounter Progress Notes Todd Aponte M.D. - 10/27/2013 1:48 PM CST [id number] CHIEF COMPLAINT/REASON FOR VISIT confirmation. HISTORY OF PRESENT ILLNESS This patient is a 23-year-old -0-0-2 female who presents for confirmation. She reports LMP of 09/20/2013. She reports regular menses once a month. She had a positive home test 3 days ago. She now presents for confirmation. She is very excited to be . This patient reports that the baby's father is a new partner. She reports she is not sure if he is going to be involved during this . The father of her last child is not involved in their life. The patient had just had a repeat section on 06/01/2013. The patient had postop complication of an incision seroma and this then opened up approximately 3 cm in size with a small skin dehiscence. She developed a cellulitis in June on 07/21/2013 approximately 6 weeks after delivery. The patient was given antibiotics and had secondary closure of a small incision opening. The patient reportsthat this has healed well. The patient is still nursing occasionally her infant, 1 or 2 times per day. No vaginal itching, irritation or discharge. No pain, cramping, discharge or discomfort. No headaches, vision changes. No shortness of breath or chest pain. No fevers or chills. No depression symptoms or suicidal thoughts. Shedoes report some mild morning nausea but denies emesis. ALLERGIES No known drug allergies. MEDICATIONS None. PAST MEDICAL / SURGICAL HISTORY 1. GERD, on no medication. 2. Seasonal allergic rhinitis. No medication. 3. Depression, on no medication. 4. History of overdose and suicide attempt, on no medication. PAST SURGICAL HISTORY 1. section in 2009. 2. section 06/01/2013. PAST OBSTETRIC HISTORY 1. section 11/26/2009. 2. section 06/01/2013. SOCIAL HISTORY The patient is single. She is not sure if the father of the baby is going to be involved in this . She denies alcohol, tobacco or drug use. No history of PID. She was treated for chlamydia in September 2012. No history of cervical ablation. No history of abuse. FAMILY HISTORY Mother, father and maternal grandfather with diabetes. No congenital anomalies. No hypertension. No coronary artery disease. ADULT PREVENTATIVE SERVICES: Tobacco use: None. Pap smear: Recommend this be done at first OB history and physical examination. Chlamydia: 10/27/2013, pending. Lipid panel: Not indicated dates. Gardasil: Recommended, patient declines. Tetanus booster: Recommended after 20 weeks, but the patient declines. Influenza: Recommended, patient declines. Depression: denied. Asthma: Denied. VITAL SIGNS WEIGHT: 90.3 kg. PULSE: 70. RESPIRATIONS: 16. BLOOD PRESSURE: 118/72. PHYSICAL EXAMINATION GENERAL: Well-developed, well-nourished obese female in no apparent stress. Alert and oriented x3. Formal examination deferred. LABS 10/27/2013: Urine test positive. LCR for GC and chlamydia pending. IMPRESSION/REPORT/PLAN 1. Positive test. 2. Last menstrual period (LMP) 09/20/2013, giving us an estimated date of confinement (EDC) of 06/27/2014. 3. History of 2 prior sections. 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 5. Obesity. 6. History of depression, currently asymptomatic. PLAN: 1. Congratulations given to the patient. 2. verification letter to be given to the patient. I recommend she go to [facility] to turn this in and apply for Medical Assistance. 3. I recommend the patient start vitamins. 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 4. I discussed nursing in . The patient reports that she will continue to nurse occasionally as she is. 5. I would like the patient to follow up in 2 or 3 weeks for OB visit and OB ultrasound to confirm gestational age and cardiac activity or be seen sooner as needed. 6. Symptomatic relief measures for nausea and vomiting or discussed with the patient. 7. Routine OB precautions, recommendations, instructions are reviewed with the patient. Todd Aponte M.D./thomas Electronically Signed By: TODD APONTE MD On: 10/30/2013 10:26 AM Source: [facility] MHSDOLBEYNONRADSYS Document Id: [id number] ET PRESS ASSISTANT documented in this encounter Procedure Notes Hal, Nori L, L.P.N. - 10/27/2013 2:51 PM CST Urine Test Urine Test Entered On: 10/27/2013 14:51 OFFSET PRESS ASSISTANT Performed On: 10/27/2013 14:51 OFFSET PRESS ASSISTANT by NORI HONG Urine HCG U beta hCG Ql POC : Positive Internal Positive QC : Pass Internal Negative QC : Pass NORI HONG - 10/27/2013 14:51 OFFSET PRESS ASSISTANT Source: [facility] POWERCHART Document Id: [id number] OFFSET PRESS ASSISTANT!5 ET PRESS ASSISTANT documented in this encounter Miscellaneous Notes Miscellaneous - Todd Aponte M.D. - 10/27/2013 2:37 PM CST [place] [address] Visit Information Name: BARBRA GIMENEZ [facility] Number: [id number] Current Date: 10/27/2013 14:37:36 Physicians Attending Provider: TODD APONTE MD Primary [...] Medication Changes/Routing Stop Taking the Following Medications: acetaminophen (Tylenol 500 mg oral tablet) docusate (Colace 100 mg oral capsule) ferrous sulfate (ferrous sulfate 325 mg (65 mg elemental iron) oral tablet) ibuprofen (ibuprofen 600 mg oral tablet) multivitamin, ( Multivitamins oral tablet) Medication list as of 10-27-13 14:37 Attention: If you have any medications at [...] Upcoming Appointments Date Time Location Reason Provider 11/09/2013 14:00 [facility] OUTREACH REPRESENTATIVE ob, ob ultrasound Todd Aponte MD Attention: Contact your local Clinic if further appointment detail needed. Your Goals/Additional instructions: Source: [facility] POWERCHART Document Id: [id number] ET PRESS ASSISTANT Miscellaneous - Todd Aponte M.D. - 10/27/2013 2:37 PM CST [place] [address] Visit Information Name: BARBRA GIMENEZ [facility] Number: [id number] Visit Date: 10/27/2013 14:37:35 Attending Provider: TODD APONTE MD Primary Care [...] Medication Changes/Routing Stop Taking the Following Medications: acetaminophen (Tylenol 500 mg oral tablet) docusate (Colace 100 mg oral capsule) ferrous sulfate (ferrous sulfate 325 mg (65 mg elemental iron) oral tablet) ibuprofen (ibuprofen 600 mg oral tablet) multivitamin, ( Multivitamins oral tablet) Medication list as of 10-27-13 14:37 Attention: If you have any medications at home that are not on this list, DO NOT take them until youcontact your provider for clarification. Give a copy of your medication list to your primary care provider. Update your medication list any time medications or doses are changed and carry your medication list at all times in case of emergency. Additional Information: Source: [facility] [employer] Document Id: [id number] ET PRESS ASSISTANT Miscellaneous - Nori Hong L.P.N. - 10/27/2013 1:58 PM CST Adult Door Operator Intake/History Adult Door Operator Intake/History Entered On: 10/27/2013 13:59 OFFSET PRESS ASSISTANT Performed On: 10/27/2013 13:58 OFFSET PRESS ASSISTANT by NORI HONG Intake Chief Complaint : confirm Peripheral Pulse Rate : 70 /min Respiratory Rate : 16 /min Heart Rhythm : Regular Systolic Blood Pressure : 118 mmHg Diastolic Blood Pressure : 72 mmHg NIBP Mean : 87 mmHg BP Location : Left upper extremity Blood Pressure Cuff Size : Regular Actual Weight : 90.3 kg(Converted to: 199 lb 1 oz) Weight Source : Standing scale Dosing Weight Clinic : 90.3 kg NORI HONG - 10/27/2013 13:58 OFFSET PRESS ASSISTANT General Info Languages : Puerto Rican NORI HONG - 10/27/2013 13:58 OFFSET PRESS ASSISTANT Subjective Pain Symptoms : No NORI HONG - 10/27/2013 13:58 OFFSET PRESS ASSISTANT Dependent Habits Tobacco Use/Currently Using : No Exposure to Tobacco Smoke : Lives with someone who smokes, Other: none Smoking Status : Never smoker NORI HONG - 10/27/2013 13:58 OFFSET PRESS ASSISTANT Caffeine Use Grid Caffeine Use : Current Type : Coffee Frequency : Daily NORI HONG - 10/27/2013 13:58 OFFSET PRESS ASSISTANT [facility] [employer] Document Id: [id number] OFFSET PRESS ASSISTANT!27 ET PRESS ASSISTANT documented in this encounter Plan of Treatment Not on filedocumented as of this encounter Procedures Procedure Name Priority Date/Time Associated Diagnosis Comme nts N GONOR AMP SRC Routine 10/27/2013 4:52 PM Result s for this OFFSET PRESS ASSISTANT procedure are i n the results section. N GONOR AMP DNA Routine 10/27/2013 4:52 PM Result s for this OFFSET PRESS ASSISTANT procedure are i n the results section. C TRACH AMP SRC Routine 10/27/2013 4:52 PM Result s for this OFFSET PRESS ASSISTANT procedure are i n the results section. C TRACH AMP RNA Routine 10/27/2013 4:52 PM Result s for this OFFSET PRESS ASSISTANT procedure are i n the results section. TEST, Routine 10/27/2013 2:51 PM Result s for this POCT, U (MANUAL) OFFSET PRESS ASSISTANT procedure a re in the results section. documented in this encounter Results HX-N gonor Amp DNA (10/27/2013 4:52 PM OFFSET PRESS ASSISTANT) athologist Signature HXN gonor Amp Negative POWERCHART DNA-[place] Specimen (Source) Anatomical Collection Method Collection Time Re ceived Time Location / / Volume Laterality 10/27/2013 4:52 PM OFFSET PRESS ASSISTANT Narrative POWERCHART - 10/31/2013 4:04 PM OFFSET PRESS ASSISTANT Test Performed by: [place] [address] Charter Driver: Humberto anna IIILake Todd Aponte M.D. LAB HISTORICAL ORDERS Performing Organization Address City/State/ZIP Code Phon e Number POWERCHART HX-N gonor Amp Src (10/27/2013 4:52 PM OFFSET PRESS ASSISTANT) athologist Signature HXN gonor Amp Urine [facility] Spec[facility] (Source) Anatomical Collection Method Collection Time Re ceived Time Location / / Volume Laterality 10/27/2013 4:52 PM OFFSET PRESS ASSISTANT Todd Aponte M.D. LAB HISTORICAL ORDERS Performing Organization Address City/State/ZIP Code Phon e Number POWERCHART HX-C trach Amp RNA (10/27/2013 4:52 PM OFFSET PRESS ASSISTANT) [facility] gist Method Time Signature Chlamydia Negative POWERCHART trachomatis amplified RNA Specimen (Source) Anatomical Collection Method Collection Time Re ceived Time Location / / Volume Laterality 10/27/2013 4:52 PM OFFSET PRESS ASSISTANT Todd Aponte M.D. LAB HISTORICAL ORDERS Performing Organization Address City/State/ZIP Code Phon e Number POWERCHART HX-C trach Amp Src (10/27/2013 4:52 PM OFFSET PRESS ASSISTANT) athologist Signature HXC trach Amp Urine [facility] Specimen (Source) Anatomical Collection Method Collection Time Re ceived Time Location / / Volume Laterality 10/27/2013 4:52 PM OFFSET PRESS ASSISTANT Todd Aponte M.D. LAB HISTORICAL ORDERS Performing Organization Address City/State/ZIP Code Phon e Number POWERCHART Test, POCT, Urine (nursing) (10/27/2013 2:51 PM OFFSET PRESS ASSISTANT) P athologist Signature HX Beta hCG Positive POWERCHART Qual Urine-Lab Only Specimen (Source) Anatomical Collection Method Collection Time Re ceived Time Location / / Volume Laterality 10/27/2013 2:51 PM OFFSET PRESS ASSISTANT Todd Aponte M.D. LAB POCT ORDERABLES-MANUAL Performing Organization Address City/State/ZIP Code Phon e Number POWERCHART documented in this encounter Visit Diagnoses Not on filedocumented in this encounter Additional Health Concerns Assessment Noted Time PHQ-9 Depression Total Score: 1 11/16/2012 11:45 AM CS T documented as of this encounter
--- OUTSIDE RECORDS SUMMARY | 2022-07-09 20:44 | XMS_ITS | Encounter Summary ---
:1990 Author Organization [facility] Address [address] [place] [address] Care Team Providers Name Role Phone Unavailable Primary Care Provider Unavailable Encounter Details Date Type Department Care Team Description 05/15/2013 Hospital Encounter HX [facility] Todd Dinero [...] Sign Reading Time Taken Comments Blood Pressure 124/72 05/15/2013 10:33 AM CDT Pulse - - Temperature - - Respiratory Rate - - Oxygen Saturation - - Inhaled Oxygen Concentration - - Weight 98.1 kg (216 lb 4.3 oz) 05/15/2013 10:33 AM CDT Height - - Body Mass Index 44.19 11/23/2012 1:32 PM AVIONICS SAFETY INSPECTOR documented in this encounter Progress Notes Todd Aponte M.D. - 05/15/2013 10:30 AM CDT [id number] CHIEF COMPLAINT/REASON FOR VISIT Acute OB visit. HISTORY OF PRESENT ILLNESS This patient is a 22-year-old G2, P1-0-0-1 female with LMP of 08/31/2012, EDC of 06/07/2013 at 36-5/7 weeks. Patient presents for an acute OB visit. She was seen in Labor and Delivery over the weekend with labor contractions after being at work all day. She reports she only had 2 glasses of fluid all day and skipped lunch at work. At the end of the work she had a lot of contractions and presented to Labor and Delivery. She was found to have regular contractions every 2 to 3 minutes. Her cervix was fingertip dilated. She was given IV fluid hydration and 1 dose of terbutaline which resolved her contractions. The patient now presents for followup. She reports continued irregular contractions since she was discharged home from the hospital, nothing regular. These contractions are worse when she is standing and active and improve when she rests. She is able to sleep. She reports that she has been drinking but has not had anything to eat since breakfast this morning. She reports good movement. No leaking of fluid or vaginal bleeding. No pelvic pressure. No headaches, vision changes. No depression symptoms. CURRENT MEDICATIONS Generic vitamins. ALLERGIES No known drug allergies. PAST MEDICAL/SURGICAL HISTORY 1. GERD currently asymptomatic. 2. Depression currently asymptomatic. 3. History of overdose and suicide attempt currently asymptomatic. PAST SURGICAL HISTORY: section 2009. VITAL SIGNS WEIGHT: 98.1 kg. TEMPERATURE: 36.7. PULSE: 74. BLOOD PRESSURE: 124/72. HEIGHT: 149 cm. PHYSICAL EXAMINATION GENERAL: Well developed, well nourished gravid female in no apparent distress. Alert and oriented times 3. Normal affect. ABDOMEN: Gravid, soft and nontender. Fundal height is 36 cm. Positive heart tones 140. Vertex presentation by Darinel's. EXTREMITIES: No edema or tenderness. GENITAL EXAM: Cervix is fingertip dilated, 3 cm thick, -1 station. Cephalic presentation confirmed. SPINE: No CVA tenderness bilaterally. LAB: 05/04/2013 GBS culture negative. IMPRESSION/REPORT/PLAN 1. Intrauterine at 36-5/7 weeks. Positive cardiac activity. 2. History of prior section. 3. History of chlamydia in 10/05/2012 treated. 4. Rubella nonimmune status. 5. Obesity. 6. History of depression and suicide attempt currently asymptomatic. PLAN: 1. Reassurance given to the patient. Irregular uterine contractions are common at the end of the . 2. Labor precautions are reviewed with patient. 3. I gave the patient a work excuse note recommending that she be off work the rest of today. I discussed return to work tomorrow but encouraged her to drink fluids and to eat throughout today. If her contractions worsen at work then I have recommended that she get more rest. If we need to then we will need to cut back on her work hours and consider having her stay off work for the rest of the . She would like to work if she can. 4. I would like the patient to follow up within 3 days as scheduled for OB visit or be seen sooner as needed. 5. I recommend elective repeat section at term. This is scheduled for 06/01/2013 at 39-1/7 week. 6. Routine OB precautions, recommendations and instructions are reviewed with patient. 7. Labor precautions are reviewed with patient. 8. I spent 25 minutes in [id number] time with the patient discussing her symptoms, performing her examination and coordinating care. Todd Aponte M.D./lina Electronically Signed By: TODD APONTE MD On: 05/17/2013 10:10 AM Source: [facility] MHSDOLBEYNONRADSYS Document Id: [id number] documented in this encounter Miscellaneous Notes Miscellaneous - Todd Aponte M.D. - 05/15/2013 1:39 PM CDT Ambulatory Patient Summary [address] [address] Visit Information Name: BARBRA GIMENEZ [facility] Number: [id number] Current Date: 05/15/2013 13:39:56 Physicians Attending Provider: TODD APONTE MD Primary [...] Time Location Reason Provider 05/18/2013 13:30 [facility] MMA FIGHTER ob Todd Aponte MD 05/25/2013 13:30 FBC[facility] MMA FIGHTER ob Todd Aponte MD Your Goals/Additional instructions: Source: [facility] POWERCHART Document Id: [id number] Miscellaneous - Todd Aponte M.D. - 05/15/2013 1:39 PM CDT [place] [address] Visit Information Name: BARBRA GIMENEZ [facility] Number: [id number] Visit Date: 05/15/2013 13:39:55 Attending Provider: TODD APONTE MD Primary Care [...] clarification. Additional Information: Source: [facility] [email or web address] Document Id: [id number] Miscellaneous - Nori Hong LWanderPWanderN. - 05/15/2013 10:33 AM CDT Adult Senior Compensation Consultant Intake/History Adult Senior Compensation Consultant Intake/History Entered On: 05/15/2013 10:35 CDT Performed On: 05/15/2013 10:33 CDT by NORI HONG Intake Chief Complaint : OB visit 36 5/7 weeks LMP Date : 08/31/2012 Temperature Core : 36.7 DegC(Converted to: 98.1 DegF) Systolic Blood Pressure : 124 mmHg Diastolic Blood Pressure : 72 mmHg NIBP Mean : 89 mmHg BP Location : Right upper extremity Blood Pressure Cuff Size : Regular Actual Weight : 98.1 kg(Converted to: 216 lb 4 oz) Weight Source : Standing scale Dosing Weight Clinic : 98.1 kg NORI HONG - 05/15/2013 10:33 CDT General Info Languages : Wallisian NORI HONG - 05/15/2013 10:33 CDT Subjective Pain Symptoms : No NORI HONG - 05/15/2013 10:33 CDT Dependent Habits Tobacco Use/Currently Using : No Exposure to Tobacco Smoke : Lives with someone who smokes, Other: none Smoking Status : Never smoker NORI HONG - 05/15/2013 10:33 CDT Caffeine Use Grid Caffeine Use : Current Type : Coffee Frequency : Daily NORI HONG - 05/15/2013 10:33 CDT Source: [facility] POWERCHART Document Id: [id number] CDT!26 documented in this encounter Plan of Treatment Not on filedocumented as of this encounter Visit Diagnoses Not on filedocumented in this encounter Additional Health Concerns Assessment Noted Time PHQ-9 Depression Total Score: 1 11/16/2012 11:45 AM CS T documented as of this encounter
--- OUTSIDE RECORDS SUMMARY | 2022-07-09 20:44 | XMS_ITS | Encounter Summary ---
:1990 Author Organization [facility] Address [address] [place] [address] Care Team Providers Name Role Phone Unavailable Primary Care Provider Unavailable Encounter Details Date Type Department Care Team Description 04/19/2013 Hospital Encounter HX [facility] Gopal Archer M.D. [address] [place] [address] (Wo rk) Social History Tobacco Use Types [...] or relatives? How often do you attend cheondoism or Never 2020 temple services? Do you belong to any clubs or No 06/25/2021 organizations such as cheondoism groups, unions, fraternal or athletic groups, or [...] Sign Reading Time Taken Comments Blood Pressure 118/62 04/19/2013 10:51 AM CDT Pulse - - Temperature - - Respiratory Rate - - Oxygen Saturation - - Inhaled Oxygen Concentration - - Weight 96.2 kg (212 lb 1.3 oz) 04/19/2013 10:51 AM CDT Height - - Body Mass Index 43.33 11/23/2012 1:32 PM STATISTICAL REPORTING ANALYST documented in this encounter Progress Notes Nubia Self M.D. - 04/19/2013 10:45 AM CDT [id number] HISTORY OF PRESENT ILLNESS Barbra comes in today for OB check. She is having good movement. VITAL SIGNS Stable. PHYSICAL EXAMINATION ABDOMEN: Fundal height consistent with dates. movement counts are given to the patient. IMPRESSION/REPORT/PLAN She will be back in [address] Aponte. Nubia Bains. Lake Self/vijay Electronically Signed By: NUBIA SELF MD On: 04/25/2013 02:51 PM Source: [facility] MHSDOLBEYNONRADSYS Document Id: [id number] documented in this encounter Miscellaneous Notes Miscellaneous - Nubia Self M.D. - 04/19/2013 11:14 AM CDT Ambulatory Patient Summary [facility] [address] [place] [address] Visit Information Name: BARBRA GIMENEZ [facility] Number: [id number] Current Date: 04/19/2013 11:14:16 Physicians Attending Provider: NUBIA SELF MD Primary Care Provider: TODD APONTE MD [...] Upcoming Appointments Date Time Location Reason Provider 05/04/2013 13:30 [facility] HAIR TINTER ob Todd Aponte MD Your Goals/Additional instructions: Source: [facility] Cross[employer] Document Id: [id number] Miscellaneous - Nubia Self M.D. - 04/19/2013 11:14 AM CDT [place] [address] Visit Information Name: BARBRA GIMENEZ [facility] Number: [id number] Visit Date: 04/19/2013 11:14:15 Attending Provider: NUBIA SELF MD Primary Care Provider: TODD APONTE MD [...] your provider for clarification. Additional Information: Source: [facility] CueSongsCHART Document Id: [id number] Miscellaneous - Conversion, Historical Provider Ser - 04/19/2013 10:51 AM CDT Adult Cartography Teacher Intake/History Adult Cartography Teacher Intake/History Entered On: 04/19/2013 10:53 CDT Performed On: 04/19/2013 10:51 CDT by ESTRELLA HARRIS LPN Intake Chief Complaint : ob check Systolic Blood Pressure : 118 mmHg Diastolic Blood Pressure : 62 mmHg NIBP Mean : 81 mmHg BP Location : Right upper extremity Actual Weight : 96.2 kg(Converted to: 212 lb 1 oz) Weight Source : Standing scale Dosing Weight Clinic : 96.2 kg ESTRELLA HARRIS LPN - 04/19/2013 10:51 CDT General Info Information Given By : Patient Languages : Danish ESTRELLA HARRIS LPN - 04/19/2013 10:51 CDT Subjective Pain Symptoms : No ESTRELLA HARRIS LPN - 04/19/2013 10:51 CDT Dependent Habits Tobacco Use/Currently Using : No Exposure to Tobacco Smoke : Lives with someone who smokes, Other: none Smoking Status : Never smoker ESTRELLA HARRIS LPN - 04/19/2013 10:51 CDT Caffeine Use Grid Caffeine Use : Current Type : Coffee Frequency : Daily ESTRELLA HARRIS LPN - 04/19/2013 10:51 CDT Source: [employer] POWERCHART Document Id: [id number] CDT!24 documented in this encounter Plan of Treatment Not on filedocumented as of this encounter Visit Diagnoses Not on filedocumented in this encounter Additional Health Concerns Assessment Noted Time PHQ-9 Depression Total Score: 1 11/16/2012 11:45 AM CS T documented as of this encounter
--- OUTSIDE RECORDS SUMMARY | 2022-07-09 20:44 | XMS_ITS | Encounter Summary ---
:1990 Author Organization [facility] Address [address] [place] [address] Care Team Providers Name Role Phone Unavailable Primary Care Provider Unavailable Encounter Details Date Type Department Care Team Description 05/25/2013 Hospital Encounter HX [facility] Todd Dinero [...] or relatives? How often do you attend latter-day or Never 2020 anabaptist services? 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 - 05/25/2013 1:20 PM CDT [id number] CHIEF COMPLAINT/REASON FOR VISIT Routine OB visit. HISTORY OF PRESENT ILLNESS This patient is a 22-year-old female with LMP 08/31/2012. EDC of 06/07/2013 at 38-1/7 weekswho presents for OB visit. She is doing well. She reports good movement. No leaking of fluid or vaginal bleeding. She continues to have irregular contractions when she is standing and active but t his resolves when she rests. No current contractions. No current pelvic pressure. No headaches, vision changes. No depression symptoms. No difficulty urinating. No change in bowel habits. The patient does complain of watery and itchy eyes for the last week. She thinks this is related to the weather. She denies congestion or runny nose. No sore throat or cough. No difficulty breathing. She thinks that this is either pink eye or allergies. She has had similar symptoms in the spring. CURRENT MEDICATIONS 1. Generic vitamins. 2. Tylenol as needed. 3. Zyrtec new prescription given today. ALLERGIES No known drug allergies. PAST MEDICAL/SURGICAL HISTORY 1. GERD currently asymptomatic. 2. Depression currently asymptomatic. 3. History of overdose and suicide attempt currently asymptomatic. 4. Suspect seasonal allergic rhinitis. PAST MEDICAL/SURGICAL HISTORY section 2009. VITAL SIGNS WEIGHT: 101.7 kg. BLOOD PRESSURE: 118/68. PULSE: 66. HEIGHT: 149 cm. PHYSICAL EXAMINATION GENERAL: Well developed, well-nourished gravid female in no apparent distress. Alert and oriented times 3. Normal affect. ABDOMEN: Gravid, soft and nontender. Fundal height is 38 cm. Positive heart tones 138. Vertex presentation by Darinel's. EXTREMITIES: No edema or tenderness. GENITAL EXAM: Cervix is fingertip dilated, 3 cm thick -1 station. No change from prior examination. Cephalic presentation confirmed. SPINE: No CVA tenderness bilaterally. HEAD/NECK: Oropharynx is clear. No erythema. No exudate. No adenopathy. No sinus tenderness. Bilateral nares without drainage. No erythema. Conjunctiva without erythema or redness. No puffiness. No evidence of conjunctivitis. LABS: 05/04/2013 GBS culture negative. IMPRESSION/REPORT/PLAN 1. Intrauterine at 30-1/7 week. Positive cardiac activity. 2. History prior section. 3. History of chlamydia in on 10/05/2012 treated 4. Rubella nonimmune status. 5. Obesity. 6. History of depression and suicide attempt currently asymptomatic. 7. Suspect seasonal allergic rhinitis. PLAN 1. Symptomatic relief measures for seasonal allergies are discussed with the patient. Discussed use of Zyrtec in . 2. Hygiene discussed with the patient. 3. Symptomatic relief measures for seasonal allergies are discussed with the patient. 4. Follow up in 1 week for OB visit or be seen sooner as needed. 5. Labor precautions are reviewed with the patient. 6. Routine OB precautions recommendations instructions are reviewed with the patient including fetalmovement and kick counts. 7. Plan elective repeat section on 06/01/2013 at 39-1/7 week. 8. I spent 25 minutes [id number] time with the patient discussing symptoms performing examination coordinating care. Todd Aponte M.D./vijay Electronically Signed By: TODD APONTE MD On: 05/31/2013 08:09 AM Source: [facility] MHSDOLBEYNONRADSYS Document Id: [id number] documented in this encounter Miscellaneous Notes Miscellaneous - Todd Aponte M.D. - 05/25/2013 1:49 PM CDT Ambulatory Patient Summary [facility] [address] [place] [address] Visit Information Name: BARBRA GIMENEZ [facility] Number: [id number] Current Date: 05/25/2013 13:49:17 Physicians Attending Provider: TODD APONTE MD Primary [...] Upcoming Appointments Date Time Location Reason Provider 05/31/2013 08:30 [facility] CHANGE MANAGEMENT MANAGER ob Todd Aponte MD Your Goals/Additional instructions: Source: [facility] POWERCHART Document Id: [id number] Miscellaneous - Todd Aponte M.D. - 05/25/2013 1:49 PM CDT [place] [address] Visit Information Name: BARBRA GIMENEZ MUKESH [facility] Number: [phone] Visit Date: 05/25/2013 13:49:16 Attending Provider: TODD APONTE MD Primary Care [...] your provider for clarification. Additional Information: Source: [facility] POWERCHART Document Id: [id number] Miscellaneous - Nori Hong LWanderPWanderN. - 05/25/2013 1:26 PM CDT Adult Crew Scheduler Intake/History Adult Crew Scheduler Intake/History Entered On: 05/25/2013 13:29 CDT Performed On: 05/25/2013 13:26 CDT by NORI HONG Intake Chief Complaint : OB visit 38 1/7 weeks c/o both eyes watery and itching LMP Date : 08/31/2012 Systolic Blood Pressure : 118 mmHg Diastolic Blood Pressure : 68 mmHg NIBP Mean : 85 mmHg BP Location : Right upper extremity Blood Pressure Cuff Size : Regular Actual Weight : 101.7 kg(Converted to: 224 lb 3 oz) Weight Source : Standing scale Dosing Weight Clinic : 101.7 kg NORI HONG - 05/25/2013 13:26 CDT General Info Languages : Chinese NORI HONG - 05/25/2013 13:26 CDT Subjective Pain Symptoms : No NORI HONG - 05/25/2013 13:26 CDT Dependent Habits Tobacco Use/Currently Using : No Exposure to Tobacco Smoke : Lives with someone who smokes, Other: none Smoking Status : Never smoker NORI HONG - 05/25/2013 13:26 CDT Caffeine Use Grid Caffeine Use : Current Type : Coffee Frequency : Daily NORI HONG - 05/25/2013 13:26 CDT Source: [facility] [employer] Document Id: [id number] CDT!25 documented in this encounter Plan of Treatment Not on filedocumented as of this encounter Visit Diagnoses Not on filedocumented in this encounter Additional Health Concerns Assessment Noted Time PHQ-9 Depression Total Score: 1 11/16/2012 11:45 AM CS T documented as of this encounter
--- OUTSIDE RECORDS SUMMARY | 2022-07-09 20:45 | XMS_ITS | Encounter Summary ---
:1990 Author Organization [facility] Address [address] [place] [address] Care Team Providers Name Role Phone Unavailable Primary Care Provider Unavailable Encounter Details Date Type Department Care Team Description 01/09/2013 - Hospital Encounter HX [facility] MA ED Kaleigh Wayne, 01/10/2013 P.A.-C. [address] [place] [address] (Wo rk) Social History Tobacco Use Types [...] do you attend quaker or Never 2020 taoist services? Do you [...] Sign Reading Time Taken Comments Blood Pressure 123/98 01/10/2013 12:00 AM CDT Pulse 86 01/10/2013 12:00 AM CDT Temperature - - Respiratory Rate 16 01/10/2013 12:00 AM CDT Oxygen Saturation - - Inhaled Oxygen Concentration - - Weight - - Height - - Body Mass Index - - documented in this encounter Discharge Summaries Hugo Aponte M.S.N., R.N. - 01/10/2013 12:26 AM CDT ED Discharge Instructions [address] [address] Name: NORAH GIMENEZ Date of : 1990 12:00 AM Visit Date: 01/09/2013 11:01 PM [facility] Number: [id number] Address: [address] [place] [address] [address] [facility] [address] Primary Care Provider: TODD APONTE MD IMPORTANT:[facility] in [place] would like to thank you for allowing us to assist you with your healthcare needs. The following includes patient education materials and information regarding your injury/illness. Chief Complaint: Painful urination Follow-Up Instructions: With: Address: When: TODD APONTE [address] [place] [address] [phone] Business (1) Within 1 - 2 days Comments: Patient Education Materials: [id number] ABDOMINAL PAIN AND EARLY [R/O SAB, ectopic: serial Q-HCG's] Based on your visit today, we know you are . But, the exact cause of your abdominal (stomach) pain is not certain. Some pain or bleeding may occur in a NORMAL . But pain may also be a sign of a MISCARRIAGE or an ECTOPIC (baby growing in the Fallopian tube instead of the uterus). An ectopic is a very serious condition. It can lead to severe internal bleeding and even . Therefore, further tests are needed to find out the cause of your symptoms. These may include: 1. ULTRASOUND - A pelvic ultrasound can detect a normal as early as 4- 5 weeks of age. But,if the ultrasound test does not show the baby inside the uterus, it means that i) you have a normal less than 4 weeks old, ii) you are having or recently had a miscarriage or iii) you have anectopic . 2. QUANTITATIVE HCG - a test that measures the amount of hormone in your blood. Comparing today's test result to a repeat test in 48 hours shows whether or not you have a normal . 3. LAPAROSCOPY - a surgical procedure where a tube with a light is placed inside the abdomen to lookdirectly at the pelvic organs. This is used when it is not safe to wait 48 hours for blood test results. ----- IMPORTANT ----- If you do have an ectopic , there is a small chance that the growing fetus can tear the Fallopian tube and cause severe internal bleeding. If this happens, there may be SUDDEN SEVERE LOWER ABDOMINAL PAIN, VAGINAL BLEEDING, WEAKNESS, DIZZINESS and sometimes FAINTING. If any of these symptoms occur: ?? CALL AN AMBULANCE (call 911) or return immediately to the hospital. ?? DO NOT DRIVE YOURSELF. ?? DO NOT GO TO YOUR DOCTOR'S OFFICE OR TO A CLINIC. HOME CARE: 1. Rest until your next exam. Do not perform any strenuous activity. 2. Eat a light diet with foods that are easy to digest. 3. Avoid sexual intercourse until all symptoms have gone away and you are cleared by your doctor. FOLLOW UP with your doctor or this facility as advised for repeat blood testing. [NOTE: If you had an X-ray or ultrasound test, it will be reviewed by a specialist. You will be notified of any new findings that may affect your care.] GET PROMPT MEDICAL ATTENTION if any of the following occur: ?? Sudden or gradual worsening abdominal pain ?? Fainting, dizziness or weakness when standing ?? Heavy vaginal bleeding (soaking one pad an hour for three hours) ?? Vaginal bleeding for more than 5 days ?? Repeated vomiting or diarrhea ?? Pain that moves to the right lower abdomen (stomach) ?? Blood in vomit or bowel movements (dark red or black color) Fever over 100.0??F (37.8??C) ?? [id number] [employer], [address] [place] [address], [place] [address]. All rights reserved. This information is not intended as a substitute for professional medical care. Always follow your healthcare professional's instructions. ED Tests and Procedures: Order Status UR Microscopic Completed Urinalysis with Microscopic if Indicated Completed Discharge Prescriptions & Home Medications: Medication/Strength Dose Route Frequency Indications/Special Instructions/Comments amoxicillin (amoxicillin 500 mg oral capsule) 500 mg Oral two times a day for 7 Days calcium-vitamin D (calcium (as carbonate)-vitamin D 600 mg-400 intl units oral tablet) 1 tab(s) Oralonce a day with meal with plenty of water acetaminophen (Tylenol 500 mg oral t ablet) multivitamin, ( Multivitamins oral tablet) 1 tab(s) Oral once a day Comment: Attention: If you have any medications at home not on this list, DO NOT take them until you contact your provider for clarification. Medication Reconciliation: Reconciliation is a process of identifying the most accurate list of all medications a patient is taking - including name, dosage, frequency, and route - and using this list to provide to the patient information about how to take those medications. NORAH GIMENEZ or fatuma has reviewed the home medications you have listed with us. Review the following instructions: You have NOT received any prescriptions and you have told us you are not currently taking any home medications You have NOT received any prescriptions. You have been provided a discharge medications list and you may CONTINUE taking your medications as previously prescribed by your regular providers. You have received the listed prescriptions and BEGIN all listed prescriptions as directed. Since you have listed no home medications, please check with your family doctor if you are taking any other medications. You have received the listed prescriptions and BEGIN all listed prescriptions as directed. Youhave been provided a discharge medications list and you may CONTINUE all home medications as previously prescribed by your regular providers. You have received the listed prescriptions and BEGIN all listed prescriptions as directed. Youhave been provided a discharge medications list. The following CHANGES have been made to your medication list; Otherwise, CONTINUE all home medications as previously prescribed by your regular provider. IMPORTANT: We examined and treated you today on an emergency basis only. This was not a substitute for, or an effort to provide, complete medical care. In most cases, you must let your doctor check youagain. Tell your doctor about any new or lasting problems. We cannot recognize and treat all injuries or illnesses in one Emergency Department visit. If you had special tests, such as EKG's or X- rays, we will review them again within 24 hours. We will call you if there are any new suggestions. Please follow the instructions above carefully. If you are being transferred to another facility your followup plan of care will be determined by the receiving facility. If you are a patient that is being discharged from the Emergency Department after receiving narcotics or other medications that may impair your judgment you may be a risk to yourself or others if you operate a motor vehicle. We recommend that you arrange a ride home with a responsible democrat. I, NORAH GIMENEZ , or responsible democrat have received this information and my questions havebeen answered. I have discussed any challenges I see with this plan with the nurse or physician. Patient Signature or Responsible Libertarian/Relationship Date Time Provider Signature Date Time Medication Reconciliation: Reconciliation is a process of identifying the most accurate list of all medications a patient is taking - including name, dosage, frequency, and route - and using this list to provide to the patient information about how to take those medications. NORAH GIMENEZ or fatuma has reviewed the home medications you have listed with us. Review the following instructions: You have NOT received any prescriptions and you have told us you are not currently taking any home medications You have NOT received any prescriptions. You have been provided a discharge medications list and you may CONTINUE taking your medications as previously prescribed by your regular providers. You have received the listed prescriptions and BEGIN all listed prescriptions as directed. Since you have listed no home medications, please check with your family doctor if you are taking any other medications. You have received the listed prescriptions and BEGIN all listed prescriptions as directed. Youhave been provided a discharge medications list and you may CONTINUE all home medications as previously prescribed by your regular providers. You have received the listed prescriptions and BEGIN all listed prescriptions as directed. Youhave been provided a discharge medications list. The following CHANGES have been made to your medication list; Otherwise, CONTINUE all home medications as previously prescribed by your regular provider. IMPORTANT: We examined and treated you today on an emergency basis only. This was not a substitute for, or an effort to provide, complete medical care. In most cases, you must let your doctor check youagain. Tell your doctor about any new or lasting problems. We cannot recognize and treat all injuries or illnesses in one Emergency Department visit. If you had special tests, such as EKG's or X- rays, we will review them again within 24 hours. We will call you if there are any new suggestions. Please follow the instructions above carefully. If you are being transferred to another facility your followup plan of care will be determined by the receiving facility. If you are a patient that is being discharged from the Emergency Department after receiving narcotics or other medications that may impair your judgment you may be a risk to yourself or others if you operate a motor vehicle. We recommend that you arrange a ride home with a responsible democrat. I, NORAH GIMENEZ , or responsible democrat have received this information and my questions havebeen answered. I have discussed any challenges I see with this plan with the nurse or physician. Patient Signature or Responsible Libertarian/Relationship Date Time Provider Signature Date Time This document has images extracted. Please consider using [employer] for all your patient education needs. Source: [facility] POWERCHART Document Id: [id number] Hugo Aponte M.S.N., R.N. - 01/10/2013 12:26 AM CDT ED Depart Summary [facility] Emergency Department Clinical Discharge Summary PERSON INFORMATION Name NORAH GIMENEZ Age 22 Years 1990 12:00 AM Sex Female Language Frisian PCP TODD APONTE MD Marital Status Single Visit Id Visit Reason Painful urination Specialty Enc Type Emergency Med Service Emergency Medicine Referred by Track Group [facility] ED/UC Discharge 01/10/2013 12:05 AM Tracking Id [id number] Checkout 01/10/2013 12:05 AM Checkin 01/09/2013 11:01 PM Acuity 3 -Urgent Dispo Type * Discharged to Home or Self Care Arrival 01/09/2013 11:01 PM Reg Status LOS 000 01:04 Address: [address] [place] [address] [address] [facility] [address] Comment: PROVIDER INFORMATION Provider Role Assigned Unassigned HUGO APONTE DOCK OPERATOR Nurse 01/09/2013 11:09 PM KALEIGH WAYNE ED Provider 01/09/2013 11:11 PM DIAGNOSIS state V22.2 Comment: PATIENT EDUCATION INFORMATION Instructions: ABDOMINAL PAIN, Early Follow up: With: Address: When: TODD APONTE [address] [place] [id number] [facility] () Within 1 - 2 days Comments: Source: [facility] [employer] Document Id: [id number] documented in this encounter Nursing Notes Hugo Aponte M.SJoshua, R.N. - 01/10/2013 12:26 AM CDT ED Pain Assessment ED Pain Assessment Entered On: 01/10/2013 0:26 CDT Performed On: 01/10/2013 0:26 CDT by HUGO APONTE RN Pain Assessment Pain Symptoms : Yes HUGO APONTE RN - 01/10/2013 0:26 CDT Source: [facility] [employer] Document Id: [id number] CDT!3 Hugo Aponte M.S.N., R.N. - 01/09/2013 11:09 PM CDT ED Primary Assessment Document Has Been Updated ED Primary Assessment Entered On: 01/09/2013 23:09 CDT Performed On: 01/09/2013 23:09 CDT by HUGO APONTE RN Reason For Visit (As Of: 01/09/2013 23:30:40 CDT) Problems(Active) Family History of Diabetes Mellitus (ICD-9-CM :V18.0 ) Name of Problem: Family History of Diabetes Mellitus ; Recorder: DK MORENO MD; Confirmation: Confirmed ; Classification: Medical ; Code: V18.0 ; Contributor System: [employer] ; Last Updated: 06/03/2010 15:52 CDT ; Life Cycle Date: 0 06/03/2010 ; Life Cycle Status: Active ; Responsible Provider: DK MORENO MD; Vocabulary: ICD-9-CM Mild Hyperemesis Gravidarum, Antepartum Condition or Complication (ICD-9-CM :643.03 ) Name of Problem: Mild Hyperemesis Gravidarum, Antepartum Condition or Complication ; Onset Date: 10/26/2012 ; Recorder: TODD APONTE MD; Confirmation: Confirmed ; Classification: Medical ; Code: 643.03 ; Last Updated: 10/26/2012 10:54 CODING VALIDATOR ; Life Cycle Status: Active ; Responsible Provider: TODD APONTE MD; Vocabulary: ICD-9-CM Previous delivery, antepartum (ICD-9-CM :654.23 ) Name of Problem: Previous delivery, antepartum ; Onset Date: 10/05/2012 ; Recorder: TODD APONTE MD; Confirmation: Confirmed ; Classification: Medical ; Code: 654.23 ; Last Updated: 10/05/2012 10:45 CODING VALIDATOR ; Life Cycle Status: Active ; R esponsible Provider: TODD APONTE MD; Vocabulary: ICD-9-CM ; Comments: 10/05/2012 10:48 - TODD APONTE MD LMP 08/31/2012 Triage Chief Complaint Description : State she had intercourse earlier this evening and then after she wentto the BR she noticed some vaginal discharge and vaginal pain. Stated she has been spotting since and the pain is more steady now Information Given By : Patient Accompanied By : Friend Mode of Arrival ED : Private vehicle Track : Medical Languages : Frisian Vital Signs Assessed : Yes GCS Assessed : Yes HUGO APONTE RN - 01/09/2013 23:27 CDT Vital Signs Temperature Core : 36.4 DegC(Converted to: 97.5 DegF) (LOW) Respiratory Rate : 16 /min Systolic Blood Pressure : 101 mmHg Diastolic Blood Pressure : 63 mmHg NIBP Mean : 76 mmHg HUGO APONTE RN - 01/09/2013 23:27 CDT [place] Coma Eye Opening Response Danny : Spontaneously Best Verbal Response Danny : Oriented Best Motor Response Danny : Obeys simple commands Danny Coma Score : 15 HUGO APONTE RN - 01/09/2013 23:27 CDT Pain Assessment Pain Symptoms : Yes HUGO APONTE RN - 01/09/2013 23:27 CDT Pain Pain Assessment Grid Pain 1 Location : Vagina Quality : Sharp HUGO APONTE RN - 01/09/2013 23:27 CDT ED Physician Notification Time ED Physician Notification Time : 01/09/2013 23:05 CDT HUGO APONTE RN - 01/09/2013 23:09 CDT SONNY SONNY Level 1 : No SONNY Level 2 : No SONNY Level 3 : One HUGO APONTE RN - 01/09/2013 23:09 CDT DCP GENERIC CODE Tracking Group : [facility] ED/UC Tracking Acuity : 3 -Urgent HUGO APONTE RN - 01/09/2013 23:09 CDT Allergy (As Of: 01/09/2013 23:30:40 CDT) Allergies (Active) Cats Estimated Onset Date: Unspecified ; Comment: has allergy to cats ; Created By: CLIVE MACKAY LPN; Reaction Status: Active ; Category: Other ; Substance: Cats ; Type: Allergy ; Updated By: RAYMOND MACKAY LPN; Reviewed Date: 01/09/2013 23:08 CDT Respiratory Airway : Patent Respirations : Unlabored Respiratory Pattern : Regular HUGO APONTE RN - 01/09/2013 23:27 CDT Cardiovascular Heart Rhythm : Regular Skin Color : Normal for ethnicity Skin Description : Normal Skin Temperature : Warm HUGO APONTE RN - 01/09/2013 23:27 CDT Neurological Last Well Time Known : Not applicable Level of Consciousness : Alert Orientation : Oriented x 3 Characteristics of Speech : Appropriate for age Neuro Patient Stated Symptoms : None Gait : Steady Swallowing Difficulty/Aspiration Risk : None HUGO APONTE RN - 01/09/2013 23:27 CDT ED Psychosocial Affect/Behavior : Cooperative, Appropriate Domestic Abuse Concerns : None HUGO APONTE RN - 01/09/2013 23:27 CDT Gastrointestinal Nutrition ED : Adequate HUGO APONTE RN - 01/09/2013 23:27 CDT /OB Assessment Patient Stated Symptoms : Vaginal discharge Sexually Active : Yes Contraception Used : No Contraception Type : None : 2 Para : 1 Status : Confirmed positive Note : Pt stated she will be 19w next week HUGO APONTE RN - 01/09/2013 23:27 CDT Musculoskeletal Fall Prevention Education Provided : Yes UHGO APONTE RN - 01/09/2013 23:27 CDT Social Habits Tobacco Use/Currently Using : No Exposure to Tobacco Smoke : Lives with someone who smokes, Other: none Smoking Status : Unknown if ever smoke HUGO APONTE RN - 01/09/2013 23:27 CDT Source: [employer] Document Id: [id number] CDT!74 documented in this encounter ED Notes Hugo Aponte M.SJoshua, R.N. - 01/10/2013 12:25 AM CDT ED Disposition Summary ED Disposition Summary Entered On: 01/10/2013 0:26 CDT Performed On: 01/10/2013 0:25 CDT by HUGO APONTE DOCK OPERATOR Disposition Summary Accompanied By : Friend Mode of Discharge : Ambulatory Transportation : Private vehicle Discharge From ED With : Home Med List Printed Discharge Instructions Given to Patient : Yes Patient Status at Discharge from ED : Improved HUGO APONTE RN - 01/10/2013 0:25 CDT Source: [employer] Document Id: [id number]!8 Hugo Aponte M.S.N., R.N. - 01/10/2013 12:00 AM CDT ED Nurse Reassess ED Nurse Reassess Entered On: 01/10/2013 0:12 CDT Performed On: 01/10/2013 0:00 CDT by HUGO APONTE RN Pain Assessment Pain Symptoms : Yes RAE HUGO Esparza RN - 01/10/2013 0:12 CDT Resp Reassess Respiratory Patient Stated Symptoms : None Distress : None Airway : Patent Respiratory Pattern : Regular Respirations : Unlabored Cough : None HUGO APONTE RN - 01/10/2013 0:12 CDT Breath Sounds Assessment Grid BUL : Clear BLL : Clear MAGI : Clear RUL : Clear RML : Clear LLL : Clear RLL : Clear HUGO APONTE Isaias FAUST - 01/10/2013 0:12 CDT CV Reassess CV Patient Stated Symptoms : None Skin Color : Normal for ethnicity Skin Description : Normal Skin Temperature : Warm Heart Rhythm : Regular HUGO APONTE RN - 01/10/2013 0:12 CDT Neuro Reassess Last Well Time Known : Not applicable Orientation : Oriented x 3 Characteristics of Speech : Appropriate for age Level of Consciousness : Alert Neuro Patient Stated Symptoms : None Gait : Steady HUGO APONTE RN - 01/10/2013 0:12 CDT Danny Coma Eye Opening Response Danny : Spontaneously Best Verbal Response [place] : Oriented Best Motor Response Danny : Obeys simple commands Danny Coma Score : 15 RAE HUGO Esparza RN - 01/10/2013 0:12 CDT GI Reassess GI Patient Stated Symptoms : None HUGO APONTE RN - 01/10/2013 0:12 CDT /OB Reassess Patient Stated Symptoms : None HUGO APONTE RN - 01/10/2013 0:12 CDT Integumentary Integumentary Patient Stated Symptoms : None HUGO APONTE RN - 01/10/2013 0:12 CDT Musculoskeletal Reassess Musculoskeletal Patient Stated Symptoms : None HUGO APONTE RN - 01/10/2013 0:12 CDT Source: [employer] Document Id: [id number] CDT!44 Kaleigh Wayne P.A.-C. - 01/09/2013 11:08 PM CDT Problem < 20 Weeks *ED Patient: NORAH GIMENEZ Age: 22 years Sex: Female : 1990 Author: KALEIGH WAYNE Attachments: None Associated Diagnosis: state V22.2 Basic Information Time seen: Date 01/09/2013, Immediately upon arrival. History source: Patient. Arrival mode: Private vehicle. History limitation: None. Additional information: Chief Complaint from Nursing Triage Note : Chief Complaint Description. 01/09/2013 23:09 CDT Chief Complaint Description State she had intercourse earlier this evening and then after she went to the BR she noticed some vaginal discharge and vaginal pain. Stated she has been spotting since and the pain is more steady now History of Present Illness The patient presents with Patient is a 22 year old female who is almost 19weeks presents to the ED with the chief complaint of vaginal spotting and burning urination after intercourse this evening. States her partner noted blood on his penis after intercourse. . The onset was just prior to arrival. Character of pain: cramping location: vaginal. Bleeding: mild. Status : 2, Para: 1 19 weeks. There are exacerbating factors including intercourse and urination. The relieving factor is none. Risk factors consist of none. Prior episodes: none. Therapy today: none. Associated symptoms: nausea, dysuria, denies vomiting, denies fever, denies chills, denies abdominal pain and denies back pain. Review of Systems Constitutional symptoms: Negative except as documented in HPI. Skin symptoms: Negative except as documented in HPI. Eye symptoms: Negative except as documented in HPI. ENMT symptoms: Negative except as documented in HPI. Respiratory symptoms: Negative except as documented in HPI. Cardiovascular symptoms: Negative except as documented in HPI. Gastrointestinal symptoms: Negative except as documented in HPI. Genitourinary symptoms: Negative except as documented in HPI. Musculoskeletal symptoms: Negative except as documented in HPI. Neurologic symptoms: Negative except as documented in HPI. Health Status Allergies: . Allergic Reactions (Selected) Severity Not Documented Cats- No reactions were documented. Past Medical/ Family/ Social History Surgical history: . IUD contraception ([id number]) in 2009 at 19 Years. Comments: 10/05/2012 10:49 - TODD APONTE MD IUD removed 05/2010 delivery only; (21003) in 2009 at 19 Years. Comments: 10/05/2012 10:50 - TODD APONTE MD section 37 2/7wk, male, 6lb 10oz, arrest of dilation Family history: . No family history items have been selected or recorded. Physical Examination General: Alert and no acute distress. Skin: Warm and dry. Head: Normocephalic and atraumatic. Cardiovascular: Regular rate and rhythm, No murmur and Normal peripheral perfusion. Respiratory: Lungs are clear to auscultation, respirations are non-labored, breath sounds are equal and Symmetrical chest wall expansion. Gastrointestinal: Soft and Nontender. Genitourinary: External genitalia:there appears to be a varicosity on the superior aspect of vaginalopening, is tender to palpation. and Bimanual exam: Cervix closed, no blood in vaginal vault. . Medical Decision Making OrdersLaunch Orders. Laboratory: UA with Microscopic if Indicated (Order Processing): Stat, 01/09/2013 23:09 CDT, Once, Clean Void Urine Heart RateBy Doppler 148 bpm. Results review:Lab results : Lab View. 01/09/2013 23:14 CDT UUA Source. UA Color YELLOW UA Spec Grav 1.020 UA pH 6.5 UA Protein Negative UA Glucose Negative UA Ketones Negative UA Bili Negative UA Urobilinogen 1.0 UA Blood Moderate UA Nitrite Negative UA Leuk Est Negative UA WBC 0-2 UA RBC 10-20 UA Bacteria 2+ UA Mucous Trace UA Appear CLEAR UA Epi 2+ UA Casts None Seen UA Crystals None Seen Impression and Plan Diagnosis state V22.2 (Discharge, Emergency medicine, Medical) Diagnosis vaginal mass, most likely varicosity bacteria in urine Plan Condition: Stable. Disposition: Medically cleared, Discharged: Time 01/09/2013 23:54:00, to home. Prescriptions: Prescription [employer]. Pharmacy: amoxicillin 500 mg oral capsule (Ordered): 500 mg, 1 cap(s), PO, 2xDay, 14 cap(s) Patient was given the following educational materials: ABDOMINAL PAIN, Early , ABDOMINAL PAIN, Early . Follow up with: TODD APONTE Within 1 - 2 days, TODD APONTE Within 1 - 2 days, TODD APONTE Within 1 - 2 days. Counseled: Patient, Regarding diagnosis, Regarding diagnostic results, Regarding treatment plan, Regarding prescription, Patient indicated understanding of instructions. Notes: Elected to treat the bacteria in urine since patient reports she did a true clean catch sample. . Electronically Signed By: KALEIGH WAYNE On: 01/10/2013 12:06 AM Modified by and Electronically Signed by: KALEIGH WAYNE On: 01/10/2013 12:06 AM Source: [facility] [employer] Document Id: [id number]} documented in this encounter Miscellaneous Notes Miscellaneous - Hugo Aponte M.S.N., R.N. - 01/10/2013 12:26 AM CDT Valuables/Belongings Valuables/Belongings Entered On: 01/10/2013 0:26 CDT Performed On: 01/10/2013 0:26 CDT by HUGO APONTE RN Valuables/Belongings Belongings Sent Home With : patient HUGO APONTE RN - 01/10/2013 0:26 CDT Source: [facility] [employer] Document Id: [id number] CDT!3 Miscellaneous - Hugo Aponte M.SJoshua, R.N. - 01/09/2013 11:01 PM CDT Facility Charge Ticket Facility Charge Ticket Entered On: 01/10/2013 0:26 CDT Performed On: 01/09/2013 23:01 CDT by HUGO APONTE RN Facility Charge TVL Level for Facility Charge Ticket : Level 3 [facility] Total Points with Diagnosis Control : 6 [facility] Visit Level : 47303 Level 3 PONCE ALMENDAREZ - 01/11/2013 10:16 CDT Mode of Arrival ED : Private vehicle [facility] Mode of Arrival Interpreted : Standard [facility] Process Management : None [facility] Order Management : Lab tests 30 Minutes Critical Care : No [facility] Nursing Assessment : Triage and 1-2 nursing assessments [facility] Disposition : Discharge HUGO APONTE RN - 01/10/2013 0:26 CDT Chief Complaint 8.50.02 Reason For Visit Category : Genitourinary ED Chief Complaint Genitourinary 8.5 : Groin pain TVL Calc : 8 TVL for Facility Charge Ticket Dx : Level 3 PONCE ALMENDAREZ - 01/11/2013 10:16 CDT Source: [facility] [employer] Document Id: [id number] CDT!10 documented in this encounter Plan of Treatment Not on filedocumented as of this encounter Procedures Procedure Name Priority Date/Time Associated Comments Diagnosis URINALYSIS, ROUTINE Routine 01/09/2013 11:14 PM R esults for this CDT procedure are i n the results section. URINE MICROSCOPIC Routine 01/09/2013 11:14 PM Res ults for this CDT procedure are i n the results section. documented in this encounter Results (ABNORMAL) Urine Microscopic (01/09/2013 11:14 PM CDT) [facility] Method Time Signature HXUr WBC 0-2 Negative POWERCHART Red Blood Cell 10-20 Negative POWERCHART Clump, Urine HXUr Epithelial 2+ None Seen POWERCHART HXUr Bacteria 2+ (A) Negative POWERCHART Crystals None Seen None Seen POWERCHART HX Ur Casts None Seen None Seen POWERCHART HX MUCOUS Trace None Seen POWERCHART THREADS Specimen Anatomical Collection Method Collection Time Receive d Time (Source) Location / / Volume Laterality Urine 01/09/2013 11:14 01/09/2013 PM CDT 11:14 PM CDT Kaleigh Wayne P.A.-C. LAB URINE ORDERABLES Performing Organization Address City/State/ZIP Code Phon e Number POWERCHART (ABNORMAL) Urinalysis, Routine (01/09/2013 11:14 PM CDT) [facility] Method Time Signature pH, POCT, Urine 6.5 5.0 - 8.0 POWERCHART HXUr Color YELLOW POWERCHART Appearance CLEAR POWERCHART Specific 1.020 1.008 - POWERCHART [place], POCT, U 1.030 Protein, Ur, Dip Negative Negative POWERCHART Glucose Negative Negative POWERCHART Ketones, QL(U) Negative Negative POWERCHART HXBILIRUBIN Negative Negative POWERCHART HXBLOOD Moderate Negative POWERCHART (A) Leukocyte Negative Negative POWERCHART Esterase HXNITRITE Negative Negative POWERCHART Urobilinogen 1.0 0.2 - 1.0 POWERCHART Source Clean Void POWERCHART Urine Specimen (Source) Anatomical Collection Method Collection Time Re ceived Time Location / / Volume Laterality Urine 01/09/2013 11:14 PM CDT Kaleigh Wayne P.A.-C. LAB URINE ORDERABLES Performing Organization Address City/State/ZIP Code Phon e Number POWERCHART documented in this encounter Visit Diagnoses Not on filedocumented in this encounter Additional Health Concerns Assessment Noted Time PHQ-9 Depression Total Score: 1 11/16/2012 11:45 AM CS T documented as of this encounter
--- OUTSIDE RECORDS SUMMARY | 2022-07-09 20:45 | XMS_ITS | Encounter Summary ---
:1990 Author Organization [facility] Address [address] [place] [address] Care Team Providers Name Role Phone Unavailable Primary Care Provider Unavailable Encounter Details Date Type Department Care Team Description 07/20/2011 Hospital Encounter HX NO MAPPING Elijah Cavazos D.O. [address] [place] [id number] (Wo rk) Social History Tobacco Use Types [...] do you attend tenriism or Never 2020 gnosticism services? Do you [...] Assessment Noted Time PHQ-9 Depression Total Score: 24 07/02/2011 4:05 PM CD T documented as of this encounter
--- OUTSIDE RECORDS SUMMARY | 2022-07-09 20:45 | XMS_ITS | Encounter Summary ---
:1990 Author Organization [facility] Address [address] [place] [address] Care Team Providers Name Role Phone Unavailable Primary Care Provider Unavailable Encounter Details Date Type Department Care Team Description 06/17/2011 Hospital Encounter HX [facility] ED Provider, Historica l Social History Tobacco Use Types Packs/Day [...] do you attend mu-ism or Never 2020 pentecostal services? Do you belong to any clubs [...] PM CDT documented as of this encounter Discharge Summaries Sandra Salguero R.N. - 06/17/2011 8:42 PM CDT ED Discharge Instructions [address] [address] Name: NORAH GIMENEZ Date of : 1990 12:00 AM Visit Date: 06/17/2011 6:42 PM Address: [address] [id number] Primary Care Provider: GINNY MALDONADO MD IMPORTANT:[facility] in [place] would like to thank you for allowing us to assist you with your healthcare needs. The following includes patient education materials and information regarding your injury/illness. Follow-Up Instructions: With: Address: When: GINNY MALDONADO [address] [address] phone, business (1) Within As Needed Comments: Follow up with Dr. Maldonado if no improvement of muscle pain. Naprosyn 500 mg bid for pain. No heavy lifting for the next 3-5 days. Patient Education Materials: [id number] CHEST PAIN, NONCARDIAC Based on your visit today, the exact cause of your chest pain is not certain. Your condition does not seem serious and your pain does not appear to be coming from your heart. However, sometimes the signs of a serious problem take more time to appear. Therefore, please watch for the warning signs listed below. HOME CARE: 1. Rest today and avoid strenuous activity. 2. Take any prescribed medicine as directed. FOLLOW UP with your doctor or this facility as instructed or if you do not start to feel better within 24 hours. [NOTE: If an X-ray or EKG (cardiogram) was made, it will be reviewed by another specialist. You willbe notified of any new findings that may affect your care.] GET PROMPT MEDICAL ATTENTION if any of the following occur: ?? A change in the type of pain: if it feels different, becomes more severe, lasts longer, or beginsto spread into your shoulder, arm, neck, jaw or back ?? Shortness of breath or increased pain with breathing ?? Cough with dark colored sputum (phlegm) or blood ?? Weakness, dizziness, or fainting ?? Fever over 100.0?? F (37.8?? C) Swelling, pain or redness in one leg ?? [id number] [employer], [address] [place] [address], [place] [address]. All rights reserved. This information is not intended as a substitute for professional medical care. Always follow your healthcare professional's instructions. Discharge Prescriptions & Home Medications: Medication/Strength Dose Route Frequency Indications/Special Instructions/Comments naproxen (Naprosyn 500 mg oral tablet) 500 mg Oral two times a day as needed for pain ain ethinyl estradiol-norgestimate (Ortho Cyclen) 1 tab Oral once a day Attention: If you have any medications at home that are not on this list, please contact your provider for clarification. Medication Reconciliation: [...] the instructions above carefully. If you are a patient that is being discharged from the Emergency Department after receiving narcotics or other medications that may impair your judgment you may be a risk to yourself or others if you operate a motor vehicle. We recommend that you arrange a ride home with a responsible alliance party. I, NORAH GIMENEZ , or responsible alliance party have received this information and my questions havebeen answered. I have discussed any challenges I see with this plan with the nurse or physician. Patient Signature or Responsible Libertarian/Relationship Date/Time Provider Signature Date/Time Medication Reconciliation: Reconciliation is a process of [...] the instructions above carefully. If you are a patient that is being discharged from the Emergency Department after receiving narcotics or other medications that may impair your judgment you may be a risk to yourself or others if you operate a motor vehicle. We recommend that you arrange a ride home with a responsible alliance party. I, AMMY NORAH MAYORGA , or responsible alliance party have received this information and my questions havebeen answered. I have discussed any challenges I see with this plan with the nurse or physician. Patient Signature or Responsible Libertarian/Relationship Date/Time Provider Signature Date/Time This document has images extracted. Please consider using [employer] for all your patient education needs. Source: [facility] POWERCHART Document Id: [id number] Electronically signed by Maycol, [facility] Professor Of Spanish [id number] at 02/28/2017 2:08 PM CDT Sandra Salguero R.N. - 06/17/2011 8:42 PM CDT ED Depart [facility] Clinical Discharge Summary PERSON INFORMATION Name NORAH GIMENEZ Age 20 Years 1990 12:00 AM Sex Female Language Kittitian PCP GINNY MALDONADO MD Marital Status Single Visit Id Visit Reason Chest wall pain; Chest pain; CHEST PAIN / DIZZY Specialty Enc Type Emergency Med Service Emergency Medicine Referred by Track Group [facility] ED/UC Discharge 06/17/2011 7:15 PM Tracking Id [id number] Checkout 06/17/2011 7:15 PM Checkin 06/17/2011 6:42 PM Acuity 4 -Less Urgent Dispo Type * Discharged to Home or Self Care Arrival 06/17/2011 6:42 PM Reg Status Complete LOS 000 00:33 Address: [facility] [address] [facility] [address] [facility] [phone] Comment: PROVIDER INFORMATION Provider Role Assigned Unassigned SHAMAR GRAHAM PA-C ED Provider 06/17/2011 6:46 PM SANDRA SALGUERO TOLL SETTLEMENT CLERK Nurse 06/17/2011 6:57 PM DIAGNOSIS Musculoskeletal chest pain Comment: PATIENT EDUCATION INFORMATION Instructions: CHEST PAIN, NonCardiac Follow up: With: Address: When: GINNY MALDONADO [address] [place] [address] phone, [employer] (5) Within As Needed Comments: Follow up with Dr. Maldonado if no improvement of muscle pain. Naprosyn 500 mg bid for pain. No heavy lifting for the next 3-5 days. Source: [facility] [employer] Document Id: [id number] documented in this encounter Nursing Notes Sandra Salguero R.N. - 06/17/2011 7:15 PM CDT ED Pain Assessment ED Pain Assessment Entered On: 06/17/2011 20:38 CDT Performed On: 06/17/2011 19:15 CDT by SANDRA SALGUERO RN Pain Assessment Pain Symptoms: Yes SANDRA SALGUERO RN - 06/17/2011 20:37 CDT Source: [facility] Digital VaultCHART Document Id: [id number] CDT!3 Sandra Salguero R.N. - 06/17/2011 6:50 PM CDT ED Primary Assessment ED Primary Assessment Entered On: 06/17/2011 18:55 CDT Performed On: 06/17/2011 18:50 CDT by SANDRA SALGUERO RN Reason For Visit Problems(Active) Anxiety With Depression Name of Problem: Anxiety With Depression ; Onset Date: 06/03/2010 ; Recorder: SARA ROE RN; Confirmation: Confirmed ; Classification: Medical ; Code: 1231 ; Last Updated:07/28/2010 9:52 CDT ; Life Cycle Date: 06/03/2010 ; Life Cycle Status: Active ; Responsible Provider: DK MORENO MD; Vocabulary: ICD-9-CM Encounter For Anatomic Survey Name of Problem: Encounter For Anatomic Survey ; Onset Date: 06/2009 ; Classification: Medical ; Code: 1231 ; Contributor System: [employer]_HPP_SYS ; Last Updated: 07/23/2009 19:00 CDT ; Life Cycle Date: 01/02/2010 ; Life Cycle Status: Active ; Vocabulary: ICD-9-CM Family History of Diabetes Mellitus Name of Problem: Family History of Diabetes Mellitus ; Recorder:DK MORENO MD; Confirmation: Confirmed ; Classification: Medical ; Code: 1231 ; Contributor System: [employer] ; Last Updated: 06/03/2010 10:52 CDT ; Life Cycle Date: 06/03/2010 ; Life Cycle Status: Active ; Responsible Provider: DK MORENO MD; Vocabulary: ICD-9-CM IUD - Intrauterine device procedure Name of Problem: IUD - Intrauterine device procedure ; Recorder:CASSANDRA SALGUERO NP; Confirmation: Confirmed ; Classification: Medical ; Code: 839774 ; ContributorSystem: [employer] ; Last Updated: 03/10/2010 10:42 CDT ; Life Cycle Date: 03/10/2010 ; Life Cycle Status: Active ; Responsible Provider: CASSANDRA SALGUERO NP; Vocabulary: SNOMED CT IUD - Removal of intrauterine device Name of Problem: IUD - Removal of intrauterine device ; Recorder: CASSANDRA SALGUERO NP; Confirmation: Confirmed ; Classification: Medical ; Code: 732404 ; Contributor System: [employer] ; Last Updated: 06/17/2010 7:28 CDT ; Life Cycle Date: 06/17/2010 ; Life Cycle Status: Active ; Responsible Provider: CASSANDRA SALGUERO BILINGUAL SALES REPRESENTATIVE; Vocabulary: SNOMED CT Post Op Incision Name of Problem: Post Op Incision ; Onset Date: 11/2009 ; Classification: Medical ; Code: 1231 ; Contributor System: [employer]_HPP_SYS ; Last Updated: 12/11/2009 19:00 CDT ; Life Cycle Date: 01/02/2010 ; Life Cycle Status: Active ; Vocabulary: ICD-9-CM Preg Normal 1st Name of Problem: Preg Normal 1st ; Onset Date: 04/2009 ; Classification: Medical ; Code: 1231 ; Contributor System: [employer]_HPP_SYS ; Last Updated: 11/24/2009 18:00 QUALIFICATION ENGINEER ; Life Cycle Date: 01/02/2010 ; Life Cycle Status: Active ; Vocabulary: ICD-9-CM Diagnoses(Active) Chest pain Date: 06/17/2011 18:46 CDT ; Diagnosis Type: Reason For Visit ; Confirmation: Confirmed ;Classification: Medical ; Clinical Service: Emergency medicine ; Code: PNED ; Probability: 0 ; Diagnosis Code: [id number] Chest wall pain Date: 06/17/2011 18:50 CDT ; Diagnosis Type: Reason For Visit ; Confirmation: Complaint of ; Classification: Nursing ; Clinical Service: Emergency medicine ; Code: SNOMED CT ; Probability: 0 ; Diagnosis Code: [id number] Triage Chief Complaint Description: pt says I have had chest pain off and on since wednesday and have thrown up today, it is not getting better, and at work I have to stand at a table and move things. pt denies SOB and say Information Given By: Patient Accompanied By: Alone Mode of Arrival ED: Private vehicle Track: Medical Vital Signs Assessed: Yes GCS Assessed: Yes SANDRA SALGUERO RN - 06/17/2011 18:50 CDT Vital Signs Temperature Oral: 36.7C(Converted to: 98.1DegF) Peripheral Pulse Rate: 77/min Respiratory Rate: 16/min Systolic Blood Pressure: 132mmHg Diastolic Blood Pressure: 74mmHg NIBP Mean: 93mmHg BP Location: Left upper extremity SpO2: 98% Oxygen Therapy: Room air SANDRA SALGUERO RN - 06/17/2011 18:50 CDT Gold Bar Coma Eye Opening Response Gold Bar: Spontaneously Best Verbal Response Gold Bar: Oriented Best Motor Response Gold Bar: Obeys simple commands Gold Bar Coma Score: 15 SANDRA SALGUERO RN - 06/17/2011 18:50 CDT Pain Assessment Pain Symptoms: Yes SANDRA SALGUERO RN - 06/17/2011 18:50 CDT Pain Pain Assessment Grid Pain 1 Location: Chest Laterality: Left Intensity: 2 Quality: Dull, Other: numb Aggravating Factors: Breathing, Movement SANDRA SALGUERO RN - 06/17/2011 18:50 CDT ED Physician Notification Time ED Physician Notification Time: 06/17/2011 18:53 CDT SANDRA SALGUERO RN - 06/17/2011 18:50 CDT SONNY SONNY Level 1: No SONNY Level 2: No SONNY Level 3: One SANDRA SALGUERO RN - 06/17/2011 18:50 CDT DCP GENERIC CODE Tracking Acuity: 4 -Less Urgent Tracking Group: [facility] ED/UC SANDRA SALGUERO RN - 06/17/2011 18:50 CDT Allergy Allergies (Active) Cats Estimated Onset Date: Unspecified ; Comment: has allergy to cats ; Created By: CLIVE MACKAY LPN; Reaction Status: Active ; Category: Other ; Substance: Cats ; Type: Allergy ; Updated By: RAYMOND MACKAY LPN; Reviewed Date: 05/28/2011 18:56 CDT Immunizations Immunizations Current: Yes Last Tetanus: < 5 years LULITIMMYSANDRA POOL RN - 06/17/2011 18:50 CDT Respiratory Airway: Patent Respirations: Unlabored Respiratory Pattern: Regular Oxygen Therapy: Room air LULITIMMYSANDRA POOL Mirza RN - 06/17/2011 18:50 CDT Cardiovascular Heart Rhythm: Regular Skin Color: Normal for ethnicity Skin Description: Dry Skin Temperature: Warm Cardiovascular Detailed Assessment: Yes LULINORTHSANDRA Mirza FAUST - 06/17/2011 18:50 CDT CV Detailed CV Patient Stated Symptoms: Chest pain Heart Sounds ICU: S1S2 Cardiac Rhythm: Sinus rhythm Ectopy Frequency: Other: none LULINORTH SANDRA Mirza FAUST - 06/17/2011 18:50 CDT Neurological Level of Consciousness: Alert Orientation: Oriented x 3 Characteristics of Speech: Appropriate for age Neuro Patient Stated Symptoms: None Gait: Steady KASSANDRASANDRA POOL RN - 06/17/2011 18:50 CDT ED Psychosocial Affect/Behavior: Calm, Cooperative, Appropriate Domestic Abuse Concerns: None SANDRA SALGUERO RN - 06/17/2011 18:50 CDT Gastrointestinal Nutrition ED: Adequate GI Detailed Assessment: Yes SANDRA SALGUERO RN - 06/17/2011 18:50 CDT GI Detailed Bowel Movement Last Date: 06/16/2011 CDT Stool Color: Brown SANDRA SALGUERO RN - 06/17/2011 18:50 CDT Musculoskeletal Fall Prevention Education Provided: Yes SANDRA SALGUERO RN - 06/17/2011 18:50 CDT EENT EENT Nostril Grid Nares, Bilateral Symptoms: Nasal drainage (Comment: and stuffy nose [SANDRA SALGUERO RN - 06/17/2011 18:50 CDT] ) SANDRA SALGUERO RN - 06/17/2011 18:50 CDT Social Habits Exposure to Tobacco Smoke: Lives with someone who smokes SANDRA SALGUERO RN - 06/17/2011 18:50 CDT Source: [employer] Document Id: [id number] CDT!85 documented in this encounter ED Notes Sandra Salguero R.N. - 06/17/2011 7:15 PM CDT ED Disposition Summary ED Disposition Summary Entered On: 06/17/2011 20:42 CDT Performed On: 06/17/2011 19:15 CDT by SANDRA SALGUERO RN ED Disposition Summary Comment: pt wanting a noted to be excused from work SANDRA SALGUERO RN - 06/17/2011 20:41 CDT Source: [employer] Document Id: [id number] CDT!3 Sandra Salguero R.N. - 06/17/2011 7:05 PM CDT ED Nurse Reassess ED Nurse Reassess Entered On: 06/17/2011 20:39 CDT Performed On: 06/17/2011 19:05 CDT by SANDRA SALGUERO RN Pain Assessment Pain Symptoms: Yes SANDRA SALGUERO RN - 06/17/2011 20:38 CDT Pain Pain Assessment Grid Pain 1 Pain 2 Location: Chest Intensity: 2 Aggravating Factors: Breathing SANDRA SALGUERO RN - 06/17/2011 20:38 CDT SANDRA SALGUERO RN - 06/17/2011 20:38 CDT Resp Reassess Respiratory Patient Stated Symptoms: None SANDRA SALGUERO RN - 06/17/2011 20:38 CDT CV Reassess CV Patient Stated Symptoms: Chest pain Skin Color: Normal for ethnicity Skin Description: Dry Skin Temperature: Warm Heart Rhythm: Regular Cardiac Rhythm: Sinus rhythm SANDRA SALGUERO RN - 06/17/2011 20:38 CDT Behavioral Health Screen/Safety Reassmt Affect/Behavior: Calm, Cooperative, Appropriate SANDRA SALGUERO RN - 06/17/2011 20:38 CDT Source: [employer] Document Id: [id number] CDT!21 Sandra Salguero RWanderNWander - 06/17/2011 7:05 PM CDT ED Disposition Summary ED Disposition Summary Entered On: 06/17/2011 20:41 CDT Performed On: 06/17/2011 19:05 CDT by SANDRA SALGUERO RN ED Disposition Summary Accompanied By: Friend Mode of Discharge: Ambulatory Transportation: Private vehicle Discharge From ED With: Home Med List Patient Status at Discharge from ED: Unchanged SANDRA SALGUERO RN - 06/17/2011 20:40 CDT Source: [employer] Document Id: [id number] CDT!7 Conversion, Historical Provider Ser - 06/17/2011 6:46 PM CDT Chest pain Patient: NORAH GIMENEZ - [place] MRN Age: 20 years Sex: Female : 1990 Author: SHAMAR GRAHAM PA-C Basic Information Time seen: Date & time 06/17/2011 18:42:00. History source: Patient. Arrival mode: Private vehicle, walking, from . History limitation: None. History of Present Illness The patient presents with chest pain. The onset was 3 days ago. The course/duration of symptoms is episodic: with multiple episodes and fluctuating in intensity. Location: Left central chest. Radiatingpain: none. The character of symptoms is achy. The degree at onset was minimal. The degree at maximum was moderate. The degree at present is moderate. Exacerbating factors consist of movement. The relieving factor is none. Risk factors consist ofRepetitive lifting at job [employer].. Prior episodes: none. Therapy today None. Associated symptoms: denies shortness of breath, denies nausea and denies diaphoresis. Patient presents to the ER with complaints of having pain in her left breast region. Pain has been present for the past 3 days. Pain started while working at [employer], her job which requires a fair amount of repetitive lifting. . Review of Systems Constitutional symptoms: no fever no chills. Skin symptoms: no rash no pruritus, no lesion. Respiratory symptoms: no shortness of breath no cough, no wheezing. Cardiovascular symptoms: Negative except as documented in HPI. Gastrointestinal symptoms: no abdominal pain no nausea, no vomiting, no diarrhea. Musculoskeletal symptoms: Negative except as documented in HPI, no back pain. Neurologic symptoms: no headache Psychiatric symptoms: Anxiety, depression. Health Status Allergies: . Allergic Reactions (all) Cats Medications: . Prescriptions and Home Medications ethinyl estradiol-norgestimate (Ortho Cyclen), 1 tab, PO, Daily, 84 tab(s) Menstrual history: Last menstrual period: 2 day(s) ago. Past Medical/ Family/ Social History Medical history: Medical history. Active Post Op Incision (V58.49): Onset in 2009 at 19 years. Encounter For Anatomic Survey (V28.81): Onset in 2008 at 19 years. Preg Normal 1st (V22.0): Onset in 2008 at 18 years. Surgical history: Surgical history. IUD contraception ([id number]) in 2010 at 19 Years. Family history: Family history. No family history items have been selected or recorded. Problem list: . All Problems Anxiety With Depression / 300.4 / Confirmed Encounter For Anatomic Survey / V28.81 Post Op Incision / V58.49 Family History of Diabetes Mellitus / V18.0 / Confirmed IUD - Intrauterine device procedure / [id number] / Confirmed IUD - Removal of intrauterine device / [id number] / Confirmed Preg Normal 1st / V22.0 Physical Examination General: Alert. no acute distress. Skin: Warm. dry. intact. no rash. normal for ethnicity. Head: Normocephalic. atraumatic. Neck: Supple. trachea midline. Eye: Pupils are equal, round and reactive to light. normal conjunctiva. Ears, nose, mouth and throat: Oral mucosa moist. No pharyngeal erythema or exudate. Cardiovascular: Regular rate and rhythm. No murmur. Normal peripheral perfusion. No edema. Normal Sinus Rhythm on telemetry.. Respiratory: Lungs are clear to auscultation. respirations are non-labored. breath sounds are equal.Symmetrical chest wall expansion. Chest wall: No deformity. Reproducible pain noted with palpation of left anterior chest wall, just lateral to sternum and medial aspect of breast tissue. . Back: Nontender. Normal range of motion. Normal alignment. Musculoskeletal: Normal ROM. normal strength. no tenderness. no swelling. no deformity. Gastrointestinal: Soft. Nontender. Non distended. No epigastric tenderness.. Neurological: Alert and oriented to person, place, time, and situation. No focal neurological deficit observed. Psychiatric: Cooperative Medical Decision Making Differential Diagnosis:Chest wall pain. RationalePain is reproducible with palpation and related to patient's repetitive lifting at work. . 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 Reexamination/ Reevaluation Re-examination/Re-evaluation:Time 06/17/2011 18:58:00, Toradol 60 mg IM.. Impression and Plan Diagnosis Musculoskeletal chest pain (Discharge, Emergency medicine, Medical) Discharge plan Condition: Stable. Dispositioned: Time 06/17/2011 19:16:00, To home. 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 Pharmacy: Naprosyn 500 mg oral tablet (Ordered): 500 mg, 1 tab(s), PO, 2xDay, 20 tab(s), PRN Patient was given the following educational materials: CHEST PAIN, NonCardiac. Follow up with: GINNY MALDONADO Within As Needed Follow up with Dr. Maldonado if no improvement of muscle pain. Naprosyn 500 mg bid for pain. No heavy lifting for the next 3-5 days.. Counseled: Patient, Regarding diagnosis, Regarding diagnostic results, Regarding treatment plan, Regarding prescription, Patient indicated understanding of instructions. Source: [facility] [employer] Document Id: {[id number]} documented in this encounter Miscellaneous Notes Miscellaneous - Sandra Salguero R.N. - 06/17/2011 7:05 PM CDT Valuables/Belongings Valuables/Belongings Entered On: 06/17/2011 20:41 CDT Performed On: 06/17/2011 19:05 CDT by SANDRA SALGUERO RN Valuables/Belongings Room Orientation/Facility Policy Reviewed: Yes Home Medication Disposition: None brought in with patient SANDRA SALGUERO RN - 06/17/2011 20:41 CDT Source: [facility] [employer] Document Id: [id number] CDT!4 Miscellaneous - Sandra Salguero R.N. - 06/17/2011 6:42 PM CDT Facility Charge Ticket Facility Charge Ticket Entered On: 06/17/2011 20:41 CDT Performed On: 06/17/2011 18:42 CDT by SANDRA SALGUERO RN Facility Charge TVL Level for Facility Charge Ticket: Level 5 Mode of Arrival ED: Private vehicle [facility] Mode of Arrival Interpreted: Standard [facility] Process Management: None [facility] Order Management: None 30 Minutes Critical Care: No [facility] Nursing Assessment: Triage and 1-2 nursing assessments [facility]x Disposition: Discharge [facility] Total Points with Diagnosis Control: 11 [facility]x Visit Level: 30171 Level 4 SANDRA SALGUERO RN - 06/17/2011 20:41 CDT [facility] Document Id: [id number] CDT!12 documented in this encounter Plan of Treatment Not on filedocumented as of this encounter Visit Diagnoses Not on filedocumented in this encounter
--- OUTSIDE RECORDS SUMMARY | 2022-07-09 20:45 | XMS_ITS | Encounter Summary ---
:1990 Author Organization [facility] Address [address] [place] [address] Care Team Providers Name Role Phone Unavailable Primary Care Provider Unavailable Encounter Details Date Type Department Care Team Description 10/05/2012 Hospital Encounter HX [facility] Todd Dinero [...] do you attend yarsani or Never 2020 bahai services? Do you [...] Reading Time Taken Comments Blood Pressure 116/68 10/05/2012 10:26 AM INTELLIGENCE OFFICER BASIC Pulse 68 10/05/2012 10:26 AM INTELLIGENCE OFFICER BASIC Temperature - - Respiratory Rate 18 10/05/2012 10:26 AM INTELLIGENCE OFFICER BASIC Oxygen Saturation - - Inhaled Oxygen Concentration - - Weight 90.8 kg (200 lb 2.8 oz) 10/05/2012 10:26 AM INTELLIGENCE OFFICER BASIC Height - - Body Mass Index 40.9 05/20/2012 2:58 PM CDT documented in this encounter Procedure Notes Alden Hong L.P.N. - 10/05/2012 11:06 AM CST Urine Test Urine Test Entered On: 10/05/2012 11:07 INTELLIGENCE OFFICER BASIC Performed On: 10/05/2012 11:06 INTELLIGENCE OFFICER BASIC by ALDEN HONG Urine HCG U beta hCG Ql POC : Positive Internal Positive QC : Pass Internal Negative QC : Pass ALDEN HONG - 10/05/2012 11:06 INTELLIGENCE OFFICER BASIC Source: [facility] [employer] Document Id: [id number] LLIGENCE OFFICER BASIC documented in this encounter Consult Notes Todd Aponte M.D. - 10/05/2012 10:18 AM CST [id number] CHIEF COMPLAINT/REASON FOR VISIT Transfer OB care. HISTORY OF PRESENT ILLNESS This patient presents for GREEN CHAIN MARKER consult from Zohreh Beaulieu at [facility]. She is a 22-year-old G2, P 1-0-0-1 female with sure LMP 08/31/2012. The patient is now 5-0/7 weeks. The patient had a positive home test. She presents for confirmation and transfer of care as she has aprior section. The patient reports some mild nausea but denies emesis. She also reports some episodic headaches which she reports she had with her prior as well. She is taking Tylenol with resolution of her headache. She also has some breast tenderness. She denies vomiting. She denies change in bowel habits. She denies difficulty urinating. No fevers or chills. No vision changes. No shortness of breath or chest pain. No vaginal bleeding or leaking of fluid. She is very excited to be . She was using no contraception. She reports father of the baby will not be involved. Shewants to keep the . CURRENT MEDICATIONS vitamins. ALLERGIES No known drug allergies. PAST MEDICAL/SURGICAL HISTORY 1. GERD, currently on no medication 2. History of depression currently on no medication 3. History of overdose and suicide attempt on no medication 4. History of kidney stones on no medication. Past Surgical History section 2009 Past Obstetrical History 1. section 11/26/2009 at 37-2/7 weeks male 6 pounds, 10 ounces for arrest of dilation. ADULT PREVENTATIVE SERVICES Provided by Zohreh Beaulieu at [facility]. These records are not available for my review. SOCIAL HISTORY The patient is single. She reports father of baby is not involved. She denies tobacco, alcohol, or drug use. She denies history of STD or PID. She denies history of cervical dysplasia. She had 1 prior Pap smear when she was with her last child which was normal. She denies history of abuse. VITAL SIGNS WEIGHT 90.8 kg PULSE 68 RESPIRATION 18 BLOOD PRESSURE 116/68 PHYSICAL EXAMINATION GENERAL: Well-developed, well-nourished obese female in no apparent distress. Alert and oriented times 3. ABDOMEN: Soft, obese, nontender, nondistended. Positive bowel sounds. Well-healed Pfannenstiel skin incision. Negative Doptones are auscultated. EXTREMITIES: No clubbing, cyanosis, edema, nontender bilaterally GENITAL EXAM: Deferred. LABS Urine test negative. Urine LCR for GC, chlamydia pending. IMPRESSION/REPORT/PLAN 1. at 5-0/7 weeks. 2. History of prior section. 3. Nausea in . 4. Obesity 5. History of depression currently asymptomatic on no medication Plan 1. Congratulations given to the patient 2. I encouraged patient to continue with vitamins which she has already started 3. I would like the patient to follow up in 2 to 3 weeks for OB visit and OB ultrasound to confirm gestational age and cardiac activity. I will confirm EDC at that ultrasound visit. The patient agreeswith this course of action. 4. Symptomatic relief measures for nausea and vomiting are discussed with patient. I discussed saltine crackers. I discussed sea band wrist straps. I discussed jamee. I recommend she avoid trigger foods that result in nausea. If the patient's nausea worsens, if she develops emesis or is losing weight I would like for her to follow up for reevaluation and strong consideration of starting antiemetic therapy. The patient feels good now and declines antiemetic therapy at this time. 5. I recommend we check new OB labs at the next visit. 6. I briefly discussed the patient's history of prior section with no vaginal deliveries. I reviewed with the patient that she is not a candidate at [facility]. She is not a candidate for trial of labor. I recommend elective repeat section at term. Patient verbalizesunderstanding. 7. I will be happy to see the patient throughout her . When we coordinate and schedule hercesarean section I will contact Zohreh Christofer so that she may be able to care for the infant. 8. I discussed importance of vitamins Todd Aponte M.D./andrews cc: Rossi Beaulieu, MANAGER OF DISTRIBUTION Electronically Signed By: TODD APONTE MD On: 10/10/2012 12:51 PM Source: [facility] [employer] Document Id: [id number] LLIGENCE OFFICER BASIC documented in this encounter Miscellaneous Notes Miscellaneous - Todd Aponte M.D. - 10/05/2012 11:41 AM CST Ambulatory Patient Summary [facility] [address] [place] [address] Visit Information Name: NORAH GIMENEZ [facility] Number: [id number] Current Date: 10/05/2012 11:41:20 Physicians Attending Provider: TODD APONTE MD Primary Care Provider: PCP, ELSEWHERE Your Medications Here is a list of your medications. It is important to take your medications as directed. Use a pillbox or chart to help remind you to take your medications. Please let your doctor or nurse know if you have problems taking your medications. Medication/Strength Dose Route Frequency Indications/Special Instructions/Comments multivitamin, ( Multivitamins oral tablet) 1 tab(s) Oral once a day acetaminophen (acetaminophen 500 mg oral tablet) 1,000 mg Oral every 6 hours as needed for Pain Attention: If you have any medications at home that are not on this list, DO NOT take them until youcontact your provider for clarification. Your Allergies & Intolerances Substance Reaction Symptoms Category Comments Cats Other has allergy to cats Your Problem List Problem Status Onset Comments Family History of Diabetes Mellitus Active Anxiety With Depression Active 06/03/2010 Previous delivery, antepartum Active 10/05/2012 10/05/12 LMP 08/31/2012 Your Upcoming Appointments Date Time Location Reason Provider 10/26/2012 10:30 [facility] [employer]ER ob and ob ultrasound Todd Aponte MD Your Goals/Additional instructions: Source: [facility] [employer] Document Id: [id number] LLIGENCE OFFICER BASIC Zaheer - Todd Aponte M.D. - 10/05/2012 11:41 AM CST [place] [address] Visit Information Name: NORAH GIMENEZ [facility] Number: [id number] Visit Date: 10/05/2012 11:41:19 Attending Provider: TODD APONTE MD Primary Care Provider: PCP, ELSEWHERE NORAH GIMENEZ has been given the following list of medications: Your Medications It is important to take your medications as directed. Use a pill box or chart to help remind you to take your medications. Please let your doctor or nurse know if you have problems taking your medications. Medication/Strength Dose Route Frequency Indications/Special Instructions/Comments multivitamin, ( Multivitamins oral tablet) 1 tab(s) Oral once a day acetaminophen (acetaminophen 500 mg oral tablet) 1,000 mg Oral every 6 hours as needed for Pain Attention: If you have any medications at home that are not on this list, DO NOT take them until youcontact your provider for clarification. Additional Information: Source: [facility] [employer] Document Id: [id number] LLIGENCE OFFICER BASIC Yessicacellkhadijah - Alden Hong, LWanderP.N. - 10/05/2012 10:26 AM CST Adult Staining Machine Operator Intake/History Adult Staining Machine Operator Intake/History Entered On: 10/05/2012 10:29 INTELLIGENCE OFFICER BASIC Performed On: 10/05/2012 10:26 INTELLIGENCE OFFICER BASIC by ALDEN HONG Intake Chief Complaint : OB visit 5 weeks LMP Date : 08/31/2012 Peripheral Pulse Rate : 68/min Respiratory Rate : 18/min Heart Rhythm : Regular Systolic Blood Pressure : 116mmHg Diastolic Blood Pressure : 68mmHg NIBP Mean : 84mmHg BP Location : Right upper extremity Blood Pressure Cuff Size : Regular Actual Weight : 90.8kg(Converted to: 200lb 3oz) Weight Source : Standing scale Dosing Weight Clinic : 90.80kg ALDEN HONG - 10/05/2012 10:26 INTELLIGENCE OFFICER BASIC Subjective Pain Symptoms : No ALDEN HONG 10/05/2012 10:26 INTELLIGENCE OFFICER BASIC Dependent Habits Tobacco Use/Currently Using : No Exposure to Tobacco Smoke : Lives with someone who smokes, Other: none Smoking Status : Never smoker ALDEN HONG 10/05/2012 10:26 INTELLIGENCE OFFICER BASIC Caffeine Use Grid Caffeine Use : Current Type : Coffee Frequency : Daily ALDEN HONG 10/05/2012 10:26 INTELLIGENCE OFFICER BASIC Allergy Allergies (Active) Cats Estimated Onset Date: Unspecified ; Comment: has allergy to cats ; Created By: CLIVE MACKAY LPN; Reaction Status: Active ; Category: Other ; Substance: Cats ; Type: Allergy ; Updated By: RAYMOND MACKAY LPN; Reviewed Date: 10/05/2012 10:24 INTELLIGENCE OFFICER BASIC [facility] Document Id: [id number] LLIGENCE OFFICER BASIC documented in this encounter Plan of Treatment Not on filedocumented as of this encounter Procedures Procedure Name Priority Date/Time Associated Diagnosis Comme nts HX U BETA HCG QL Routine 10/05/2012 11:07 AM Resu lts for this POC INTELLIGENCE OFFICER BASIC procedure are i n the results section. N GONOR AMP SRC Routine 10/05/2012 10:46 AM Resul ts for this INTELLIGENCE OFFICER BASIC procedure are i n the results section. N GONOR AMP DNA Routine 10/05/2012 10:46 AM Resul ts for this INTELLIGENCE OFFICER BASIC procedure are i n the results section. C TRACH AMP SRC Routine 10/05/2012 10:46 AM Resul ts for this INTELLIGENCE OFFICER BASIC procedure are i n the results section. C TRACH AMP RNA Routine 10/05/2012 10:46 AM Resul ts for this INTELLIGENCE OFFICER BASIC procedure are i n the results section. documented in this encounter Results HX U BETA HCG QL POC (10/05/2012 11:07 AM INTELLIGENCE OFFICER BASIC) athologist Signature HX Beta hCG Positive POWERCHART Qual Urine-Lab Only Specimen (Source) Anatomical Collection Method Collection Time Re ceived Time Location / / Volume Laterality 10/05/2012 11:07 AM INTELLIGENCE OFFICER BASIC Historical Provider LAB HISTORICAL ORDERS Performing Organization Address City/State/ZIP Code Phon e Number POWERCHART HX-N gonor Amp DNA (10/05/2012 10:46 AM INTELLIGENCE OFFICER BASIC) athologist Signature HXN gonor Amp Negative POWERCHART DNA-[place] Specimen (Source) Anatomical Collection Method Collection Time Re ceived Time Location / / Volume Laterality 10/05/2012 10:46 AM INTELLIGENCE OFFICER BASIC Narrative POWERCHART - 10/06/2012 4:03 PM INTELLIGENCE OFFICER BASIC Test Performed by: [address] [id number] Die Mounter: Humberto anna III, M.D. Todd Aponte M.D. LAB HISTORICAL ORDERS Performing Organization Address City/State/ZIP Code Phon e Number POWERCHART HX-N gonor Amp Src (10/05/2012 10:46 AM INTELLIGENCE OFFICER BASIC) athologist Signature HXN gonor Amp Urine POWERCHART Src-[place] Specimen (Source) Anatomical Collection Method Collection Time Re ceived Time Location / / Volume Laterality 10/05/2012 10:46 AM INTELLIGENCE OFFICER BASIC Todd Aponte M.D. LAB HISTORICAL ORDERS Performing Organization Address City/State/ZIP Code Phon e Number POWERCHART HX-C trach Amp RNA (10/05/2012 10:46 AM INTELLIGENCE OFFICER BASIC) [facility] Method Time Signature Chlamydia Positive POWERCHART trachomatis amplified RNA Specimen (Source) Anatomical Collection Method Collection Time Re ceived Time Location / / Volume Laterality 10/05/2012 10:46 AM INTELLIGENCE OFFICER BASIC Todd Aponte M.D. LAB HISTORICAL ORDERS Performing Organization Address City/State/ZIP Code Phon e Number POWERCHART HX-C trach Amp Src (10/05/2012 10:46 AM INTELLIGENCE OFFICER BASIC) athologist Signature HXC trach Amp Urine POWERCHART Src-[place] Specimen (Source) Anatomical Collection Method Collection Time Re ceived Time Location / / Volume Laterality 10/05/2012 10:46 AM INTELLIGENCE OFFICER BASIC Todd Aponte M.D. LAB HISTORICAL ORDERS Performing Organization Address City/State/ZIP Code Phon e Number POWERCHART documented in this encounter Visit Diagnoses Not on filedocumented in this encounter Additional Health Concerns Assessment Noted Time PHQ-9 Depression Total Score: 24 07/02/2011 4:05 PM CD T documented as of this encounter
--- OUTSIDE RECORDS SUMMARY | 2022-07-09 20:45 | XMS_ITS | Encounter Summary ---
:1990 Author Organization [facility] Address [address] [place] [address] Care Team Providers Name Role Phone Unavailable Primary Care Provider Unavailable Encounter Details Date Type Department Care Team Description 01/03/2013 Hospital Encounter HX [facility] Nilton Sellers, COMPUTER OPERATIONS ANALYST, C.N.P. [address] [place], [place] [phone] (Wo rk) Social History [...] do you attend sabianist or Never 2020 lutheran services? Do you belong to any clubs [...] Sign Reading Time Taken Comments Blood Pressure 90/58 01/03/2013 2:42 PM CDT Pulse - - Temperature - - Respiratory Rate - - Oxygen Saturation - - Inhaled Oxygen Concentration - - Weight 91.2 kg (201 lb 1 oz) 01/03/2013 2:42 PM CDT Height - - Body Mass Index 41.08 11/23/2012 1:32 PM [employer] documented in this encounter Progress Notes Nilton Whiting APRN, CWanderN.P. - 01/03/2013 2:38 PM CDT [id number] CHIEF COMPLAINT / REASON FOR VISIT Pelvic pressure during . HISTORY OF PRESENT ILLNESS Barbra is a 22-year-old 2, para 1 ( section) whose EDC is 06/07/2013 based on LMP of08/31/2012. Her primary induction heat treater is Dr. Aponte. She last saw him on 12/21/2012 for her routine care. Her is complicated by a history of , obesity, nausea and vomiting in early , positive chlamydia during her first trimester with eqir-bd-zlut performed on 11/23 that was negative. History of depression with suicide attempt diagnosed with urinary tract infection on 11/08/2012. Patient is 17-6/7 weeks gestation today. Patient denies having felt any movement to date. She denies any bleeding or spotting from the vagina. She has been experiencing some pelvic pressure for the last couple of days. She states she is scheduled to see Dr. Aponte back in one week but she did not want to let this wait any longer. She does admit that she has been working long days trying to get in over time at her job at [employer]. Some days she works from 7 a.m. to 9 p.m. She is working greater than 48 hours every week. Currently, she is living with her mother. Her mom provides daycare for her 3-year-old during the day. Her goal is to make some extra money in order to save for down-payment on her own trailer. She also notes she has been experiencing some headaches recently, some trouble sleeping during the night, her appetite has been diminished and she has noted that she is not tolerating dairy as well so she has been avoiding that quite a bit. Patient states that she has not been sexually active since her eero-ww-fxcn for her chlamydia so she is not concerned at this point in time about sexually transmitted infection. She also states that she has not been experiencing any urinary urgency, frequency, dysuria or hematuria. Her bowel function has been fairly normal with the exception of some loose stools and some discomfort in her abdomen when she consumes dairy. She denies any vaginal discharge or odor. She does have a history of a yeast infection a couple of years ago. Has no history of bacterial vaginosis and she is here to be sure that everything is fine with her . CURRENT MEDICATIONS 1. vitamins. 2. Tylenol. 3. Calcium and vitamin D. ALLERGIES No known drug allergies but patient is allergic to cats. SYSTEMS REVIEW Pertinent positives noted in HPI, otherwise negative. PAST MEDICAL/SURGICAL HISTORY Past Medical History 1. History of GERD, currently asymptomatic. 2. History of depression, currently asymptomatic. 3. History of overdose and suicide attempt, currently asymptomatic. Surgical History 1. section in 2010. VITAL SIGNS WEIGHT: 91.2 BLOOD PRESSURE: 90/58 TEMPERATURE: 36.5 PHYSICAL EXAMINATION GENERAL: She is a well-appearing female in no acute distress. HEENT: Vision and hearing grossly intact. SKIN: Warm, dry and pink. No rashes, lesions or bruising. ABDOMEN: Soft, nontender and gravid. Fundal height 16 cm. heart tones assessed with mini Doppler, 145 to 150. EXTREMITIES: No edema or tenderness. SPINE: No CVA tenderness. PELVIS: External genitalia without lesions or abnormalities. Urethral meatus normal in location and appearance without masses. Negative Bartholin's and Refugio's. Vaginal mucosa appears pink and moist with normal rugae. No lesions noted. Normal physiologic discharge noted. Cervix visualized. Appears pink without lesions or abnormalities. Cervix is closed. Wet prep was obtained. LABORATORY DATA Urine dipstick was negative. Wet prep was obtained and pending. IMPRESSION / REPORT / PLAN 1. Intrauterine at 17-6/7 weeks gestation. 2. Abdominal pain and pressure. PLAN At this point, heart rate is reassuring. Cervix appears closed and normal. Urine is negative for urinary tract infection. Wet prep is pending. Counseled patient on adequate fluid intake and cutting back on her caffeine intake. I also counseled her on eating 6 to 7 small meals per day with her decreased appetite instead of trying to eat three larger meals per day. Encouraged her to get adequate sleep during the night. Shared with her that she may be overdoing it working 12 to 14 hour days and she should consider cutting back to 8 to 10 hours per day during her to prevent discomfort and other complications. Encouraged her to go ahead and continue avoiding dairy. Did provide her with a prescription for a calcium and vitamin D supplement since she is no longer consuming any dairy products. Encouraged her to keep her visit next week with Dr. Aponte and to call us if any of her pelvic pressure symptoms become more problematic before that time. At this point she has no additional concerns or questions and she is agreeable to this plan of care. Nilton Whiting CNP/fer Electronically Signed By: NILTON WHITING RN, CNP On: 01/05/2013 10:57 AM Source: [facility] MHSDOLBEYNONRADSYS Document Id: [id number] documented in this encounter Procedure Notes Aysha Coffman RJoshua - 01/03/2013 3:07 PM CDT Urine Dipstick Urine Dipstick Entered On: 01/03/2013 15:08 CDT Performed On: 01/03/2013 15:07 CDT by AYSHA MOYA Urine Dipstick UA Color POC : Yellow UA Appear POC : Clear UA Leuk POC : Negative UA Nitrite POC : Negative UA Urobilinogen POC : 1 mg/dl UA Protein POC : Negative UA pH POC : 6.0 UA Blood POC : Negativ UA Spec Grav POC : 1.025 UA Ketones POC : Negative UA Bili POC : Negative UA Glucose POC : Negative AYSHA MOYA - 01/03/2013 15:07 CDT Source: [facility] POWERCHART Document Id: [id number]!14 documented in this encounter Miscellaneous Notes Miscellaneous - Nilton Whiting APRN, C.N.P. - 01/03/2013 3:25 PM CD[place] [address] Visit Information Name: BARBRA GIMENEZ [facility] Number: [id number] Current Date: 01/03/2013 15:25:08 Physicians Attending Provider: NILTON WHITING RN VIDEO SYSTEM REPAIRER Primary Care Provider: TODD APONTE MD Your Medications Here is a list of your medications. It is important to take your medications as directed. Use a pillbox or chart to help remind you to take your medications. Please let your doctor or nurse know if you have problems taking your medications. Medication/Strength Dose Route Frequency Indications/Special Instructions/Comments calcium-vitamin D (calcium-vitamin D 500 mg-400 units oral tablet, chewable) 1 tab(s) Chewed once a day with meal acetaminophen (Tylenol 500 mg oral tablet) multivitamin, [...] Upcoming Appointments Date Time Location Reason Provider 01/11/2013 10:00 [facility] ob Todd Aponte MD 01/25/2013 10:00 [facility] HOME ECONOMIST ob, ob ultrasound Todd Aponte MD Your Goals/Additional instructions: Source: [facility] POWERCHART Document Id: [id number] Miscellaneous - Nilton Whiting APRN, C.N.P. - 01/03/2013 3:25 PM CDT [place] [address] Visit Information Name: BARBRA GIMENEZ [facility] Number: [id number] Visit Date: 01/03/2013 15:25:08 Attending Provider: HENOK, NILTON J RN VIDEO SYSTEM REPAIRER Primary Care Provider: TODD APONTE MD BARBRA GIMENEZLE has been given the following list of medications: Your Medications It is important to take your medications as directed. Use a pill box or chart to help remind you to take your medications. Please let your doctor or nurse know if you have problems taking your medications. Medication/Strength Dose Route Frequency Indications/Special Instructions/Comments calcium-vitamin D (calcium-vitamin D 500 mg-400 units oral tablet, chewable) 1 tab(s) Chewed once a day with meal acetaminophen (Tylenol 500 mg oral tablet) multivitamin, ( Multivitamins oral tablet) 1 tab(s) Oral once a day Attention: If you have any medications at home that are not on this list, DO NOT take them until youcontact your provider for clarification. Additional Information: Source: [facility] POWERCHART Document Id: [id number] Miscellaneous - Aysha Coffman, RWanderNWander - 01/03/2013 2:42 PM CDT Adult Plant Engineering Manager Intake/History Adult Plant Engineering Manager Intake/History Entered On: 01/03/2013 14:44 CDT Performed On: 01/03/2013 14:42 CDT by AYSHA MOYA Intake Chief Complaint : OB visit 17 6/7 weeks Temperature Core : 36.5 DegC(Converted to: 97.7 DegF) Systolic Blood Pressure : 90 mmHg (LOW) Diastolic Blood Pressure : 58 mmHg NIBP Mean : 69 mmHg BP Location : Right upper extremity Blood Pressure Cuff Size : Regular Actual Weight : 91.2 kg(Converted to: 201 lb 1 oz) Dosing Weight Clinic : 91.2 kg AYSHA MOYA - 01/03/2013 14:42 CDT General Info Languages : Korean AYSHA MOYA - 01/03/2013 14:42 CDT Subjective Pain Symptoms : No AYSHA MOYA - 01/03/2013 14:42 CDT Dependent Habits Tobacco Use/Currently Using : No Exposure to Tobacco Smoke : Lives with someone who smokes, Other: none Smoking Status : Unknown if ever smoke AYSHA MOYA - 01/03/2013 14:42 CDT Caffeine Use Grid Caffeine Use : Current Type : Coffee Frequency : Daily AYSHA MOYA - 01/03/2013 14:42 CDT Source: [facility] POWERCHART Document Id: [id number] CDT!24 documented in this encounter Plan of Treatment Not on filedocumented as of this encounter Procedures Procedure Name Priority Date/Time Associated Comments Diagnosis POCT KETONE, URINE Routine 01/03/2013 3:07 PM Res ults for this CDT procedure are i n the results section. WET PREP EXAM, Routine 01/03/2013 3:04 PM Results for this UROGENITAL CDT procedure are i n the results section. documented in this encounter Results Ketone, Urine, POCT (01/03/2013 3:07 PM CDT) Analysis Performed At Patho logist Time Signature Color Yellow POWERCHART Appearance Clear POWERCHART Leukocytes, Negative POWERCHART POCT, U Nitrites, POCT, Negative POWERCHART U Urobilinogen, 1 mg/dl POWERCHART POCT, Urine Protein, POCT, Negative POWERCHART U pH, POCT, Urine 6.0 5.0 - 9.0 POWERCHART Blood, POCT, U Negativ POWERCHART Specific 1.025 1.000 - POWERCHART [place], POCT, 1.030 U Ketone, POCT, U Negative POWERCHART Bilirubin, Negative POWERCHART POCT, U Glucose, POCT, Negative POWERCHART U Specimen (Source) Anatomical Collection Method Collection Time Re ceived Time Location / / Volume Laterality 01/03/2013 3:07 PM CDT Nilton Whiting APRN, C.N.P. LAB POCT ORDERABLES-MAN UAL Performing Organization Address City/State/ZIP Code Phon e Number POWERCHART Wet Prep Exam, Urogenital (01/03/2013 3:04 PM CDT) P athologist Signature HXWet Prep POWERCHART HXFinal No yeast, POWERCHART Trichomonas , clue cells, or sperm seen. Specimen (Source) Anatomical Collection Method Collection Time Re ceived Time Location / / Volume Laterality Vagina 01/03/2013 3:04 PM CDT Nilton Whiting APRN, C.N.P. LAB MICROBIOLOGY - GENE RAL ORDERABLES Performing Organization Address City/State/ZIP Code Phon e Number POWERCHART documented in this encounter Visit Diagnoses Not on filedocumented in this encounter Additional Health Concerns Assessment Noted Time PHQ-9 Depression Total Score: 1 11/16/2012 11:45 AM CS T documented as of this encounter
--- OUTSIDE RECORDS SUMMARY | 2022-07-09 20:45 | XMS_ITS | Encounter Summary ---
:1990 Author Organization [facility] Address [address] [place] [address] Care Team Providers Name Role Phone Unavailable Primary Care Provider Unavailable Encounter Details Date Type Department Care Team Description 01/09/2011 Hospital Encounter HX [facility] Felicita Bolanos M.D. [address] [address] [place] [address] (Wo rk) Social History Tobacco Use Types [...] do you attend buddhism or Never 2020 church services? Do you [...]
--- OUTSIDE RECORDS SUMMARY | 2022-07-09 20:45 | XMS_ITS | Encounter Summary ---
:[address] [facility] Address [address] [place] [address] Care Team Providers Name Role Phone Unavailable Primary Care Provider Unavailable Encounter Details Date Type Department Care Team Description 05/20/2012 Hospital Encounter HX [facility] Isaias Weinberg M.D. [address] [place] [address] Social History Tobacco Use Types Packs/Day Years [...] do you attend denominational or Never 2020 buddhism services? Do you belong to any clubs [...] Sign Reading Time Taken Comments Blood Pressure 122/64 05/20/2012 2:58 PM CDT Pulse 74 05/20/2012 2:58 PM CDT Temperature - - Respiratory Rate 16 05/20/2012 2:58 PM CDT Oxygen Saturation - - Inhaled Oxygen Concentration - - Weight 87 kg (191 lb 12.8 oz) 05/20/2012 2:58 PM CDT Height 149 cm (4' 10.66) 05/20/2012 2:58 PM CDT Body Mass Index 39.19 05/20/2012 2:58 PM CDT documented in this encounter Progress Notes Iain Lentz M.D. - 05/20/2012 2:31 PM CDT EC DATE: 05/20/2012 CHIEF COMPLAINT/REASON FOR VISIT Norah is a 21-year-old female who presents today with a litany of issues including crusty, mattery and red eyes for about the last week. HISTORY OF PRESENT ILLNESS She has also had an itchy but not a sore throat. She denies any definite fever. She gets strep about5 times a year she says. She has been complaining of coughing and sneezing for about a week. She also notes some frontal headache and some nasal discharge at times. There are some questionable vague issues regarding bladder stones. CURRENT MEDICATIONS 1. Fluticasone nasal spray. 2. control pills. 3. Sertraline 25 mg daily. ALLERGIES CATS. PHYSICAL EXAMINATION HEENT: Eyes: There is trace to 1+ conjunctivitis present. The pupils are equal, round and reactive to light and accommodation. ENT: Negative. +/- red oropharynx. LUNGS: Clear. NECK: No significant adenopathy. ABDOMEN: Essentially negative. I am unable to appreciate any definite pathology through a moderatelyobese abdomen. GENITOURINARY: LMP: The patient states that her last menstrual period was 2 weeks ago. IMPRESSION/REPORT/PLAN 1. Acute pharyngitis with a strong history of strep. 2. Cough. 3. Conjunctivitis. Elect to cover with sodium sulfacetamide ophthalmic drops for the conjunctivitis at least one day beyond resolution of symptoms. We will also give her amoxicillin 250 t.i.d. for 10 days to cover any potential urinary issues along with respiratory issues. Certainly if her symptoms persist she should return and follow up with her regular doctor for any urinary tract problems. KINJAL:kaylynn Doc#: [id number] Electronically Signed By: IAIN LENTZ MD On: 05/24/2012 01:17 PM Source: [facility] JESSEJDICTAPHONESYS Document Id: [id number] documented in this encounter Miscellaneous Notes Miscellaneous - Iain Lentz M.D. - 05/20/2012 3:26 PM CDT Ambulatory Depart Summary [address] [place] [address] Visit Information Name: AMMY NORAHJOSEY MAYORGA Visit Date: 05/20/2012 15:26:56 Attending Provider: IAIN LENTZ MD Primary Care Provider: GINNY MALDONADO MD NORAH GIMENEZ has been given the following list of medications: Your Medications It is important to take your medications as directed. Use a pill box or chart to help remind you to take your medications. Please let your doctor or nurse know if you have problems taking your medications. Medication/Strength Dose Route Frequency Indications/Special Instructions/Comments sulfacetamide sodium ophthalmic (Sulfacet Sodium 10% ophthalmic solution) 1 drop(s) Eyes(Both) four times a day for 7 Days amoxicillin (amoxicillin 250 mg oral capsule) 250 mg Oral three times a day for 10 Days fluticasone nasal (Flonase 0.05 mg/inh nasal spray) 2 spray(s) Nasal two times a day sertraline (Zoloft 25 mg oral tablet) 25 mg Oral once a day ethinyl estradiol-norgestimate (Ortho Cyclen) 1 tab Oral once a day Attention: If you have any medications at home that are not on this list, DO NOT take them until youcontact your provider for clarification. Additional Information: Source: [facility] POWERCHART Document Id: [id number] Miscellaneous - Iain Lentz M.D. - 05/20/2012 3:26 PM CDT Ambulatory Patient Summary [address] [place] [address] Visit Information Name: NORAH GIMENEZ Current Date: 05/20/2012 15:26:57 Physicians Attending Provider: IAIN LENTZ MD Primary Care Provider: GINNY MALDONADO MD Your Medications Here is a list of your medications. It is important to take your medications as directed. Use a pillbox or chart to help remind you to take your medications. Please let your doctor or nurse know if you have problems taking your medications. Medication/Strength Dose Route Frequency Indications/Special Instructions/Comments sulfacetamide sodium ophthalmic (Sulfacet Sodium 10% ophthalmic solution) 1 drop(s) Eyes(Both) four times a day for 7 Days amoxicillin (amoxicillin 250 mg oral capsule) 250 mg Oral three times a day for 10 Days fluticasone nasal (Flonase 0.05 mg/inh nasal spray) 2 spray(s) Nasal two times a day sertraline (Zoloft 25 mg oral tablet) 25 mg Oral once a day ethinyl estradiol-norgestimate (Ortho Cyclen) 1 tab Oral once a day Attention: If you have any medications at home that are not on this list, DO NOT take them until youcontact your provider for clarification. Your Allergies & Intolerances Substance Reaction Symptoms Category Comments Cats Other has allergy to cats Your Problem List Problem Status Onset Comments Preg Normal 1st Active 05/16/2009 Encounter For Anatomic Survey Active 07/24/2009 Post Op Incision Active 12/12/2009 IUD - Intrauterine device procedure Active Family History of Diabetes Mellitus Active IUD - Removal of intrauterine device Active Anxiety With Depression Active 06/03/2010 Your Upcoming Appointments Date Time Location Reason Provider No Appointments found Your Goals/Additional instructions: Source: [facility] POWERCHART Document Id: [id number] Miscellaneous - Conversion, Historical Provider Ser - 05/20/2012 2:58 PM CDT Adult Beauty Culturist Intake/History Adult Beauty Culturist Intake/History Entered On: 05/20/2012 15:02 CDT Performed On: 05/20/2012 14:58 CDT by CASTILLO MEJIAS Chief Complaint : Irritation and build-up in eyes Runny nose/Stuffy nose Congestion headaches vomitting stomach hurts when lying on it Onset of Symptoms : Few Days Temperature Core : 36.8C(Converted to: 98.2DegF) Peripheral Pulse Rate : 74/min Respiratory Rate : 16/min Heart Rhythm : Regular Systolic Blood Pressure : 122mmHg Diastolic Blood Pressure : 64mmHg NIBP Mean : 83mmHg BP Location : Left upper extremity Height : 149cm(Converted to: 4ft 11inch(es), 58.66inch(es)) Actual Weight : 87kg(Converted to: 191lb 13oz) Weight Source : Standing scale Dosing Weight Clinic : 87.00kg Clinic BSA : 1.90 Body Mass Index : 39.19kg/m2 CASTILLO MEJIAS Gina 05/20/2012 14:58 CDT General Info Information Given By : Patient Preferred Communication Mode : Verbal Languages : Latvian CASTILLO MEJIAS Gina 05/20/2012 14:58 CDT Subjective Pain Symptoms : Yes STEPHON MEJIASZEFERINO Fuentes 05/20/2012 14:58 CDT Pain Pain Assessment Grid Pain 1 Location : Abdomen Laterality : Bilateral Intensity : 5 Comment : When lying down - patient does have bladder stones ENMANUELKrystina CASTILLO Fuentes 05/20/2012 14:58 CDT Dependent Habits Tobacco Use/Currently Using : No Exposure to Tobacco Smoke : Lives with someone who smokes Smoking Status : Former smoker ENMANUELKrystinaSTEPHONZEFERINO Fuentes 05/20/2012 14:58 CDT Caffeine Use Grid Caffeine Use : Current Type : Coffee Frequency : Daily ENMANUELKrystinaSTEPHONZEFERINO Fuentes 05/20/2012 14:58 CDT Allergy Allergies (Active) Cats Estimated Onset Date: Unspecified ; Comment: has allergy to cats ; Created By: CLIVE MACKAY LPN; Reaction Status: Active ; Category: Other ; Substance: Cats ; Type: Allergy ; Updated By: RAYMOND MACKAY LPN; Reviewed Date: 05/20/2012 14:57 CDT Source: [employer] Document Id: [id number] documented in this encounter Plan of Treatment Not on filedocumented as of this encounter Visit Diagnoses Not on filedocumented in this encounter Additional Health Concerns Assessment Noted Time PHQ-9 Depression Total Score: 24 07/02/2011 4:05 PM CD T documented as of this encounter
--- OUTSIDE RECORDS SUMMARY | 2022-07-09 20:45 | XMS_ITS | Encounter Summary ---
:1990 Author Organization [facility] Address [address] [place] [address] Care Team Providers Name Role Phone Unavailable Primary Care Provider Unavailable Encounter Details Date Type Department Care Team Description 08/01/2012 Hospital Encounter [facility] Elias kamlesh L, PHYSICAL PLANT MANAGER, C.N.P., [address] [facility] [place] [address] (Wo rk) Social History Tobacco Use Types [...] you attend jehovah's witness or Never 2020 gnosticist services? Do you belong to any clubs [...] Reading Time Taken Comments Blood Pressure 112/60 08/01/2012 5:19 PM HAND STRIPER Pulse 66 08/01/2012 5:19 PM HAND STRIPER Temperature - - Respiratory Rate 18 08/01/2012 5:19 PM HAND STRIPER Oxygen Saturation - - Inhaled Oxygen Concentration - - Weight 92.6 kg (204 lb 2.3 oz) 08/01/2012 5:19 PM HAND STRIPER Height - - Body Mass Index 41.71 05/20/2012 2:58 PM CDT documented in this encounter Progress Notes Beatrice Mendes APRN, CWanderN.P. - 08/01/2012 5:10 PM CST EC DATE: 08/01/2012 CHIEF COMPLAINT/REASON FOR VISIT Urinary frequency and check for STDs. HISTORY OF PRESENT ILLNESS This is a 22-year-old female who states she would like to be tested for STDs today. When I asked herif she is having any symptoms, no, but my cousin keeps spreading that I have an STD. I did explain to her that in itself would not constitute STD testing; however, she does state she has also been having some urinary frequency as well over the last few days also. She states to me that she was sexuallyactive 2 days ago with a person that she did not use any protective intercourse. She did not use a condom with this partner. She is not on any type of control whatsoever. She currently has 1 son and tells me she does not want to get . I did discuss with her unprotected sex can cause and also can cause STDs and encouraged her to think about that. This patient has had no hesitancy, blood in her urine, flank pain, or abdominal pain. She has had no odor in her discharge she states. No headaches or groin discomfort. PAST MEDICAL/SURGICAL HISTORY MEDICAL: I have reviewed, reconciled and listed all. CURRENT MEDICATIONS I have reviewed, reconciled and listed all. ALLERGIES I have reviewed, reconciled and listed all. VITAL SIGNS Temperature 36.6. Pulse rate 66 and regular. Respiratory rate 18 and regular. Blood pressure 112/70.Weight 92.6 kg. PHYSICAL EXAMINATION GENERAL: A 22-year-old female in no acute distress. CHEST: Lung sounds clear throughout. HEART: Sounds S1, S2 auscultated. No murmurs, clicks or gallops noted. ABDOMEN: Soft. Bowel sounds active. No organomegaly or splenomegaly. GENITOURINARY: Genitalia: Patient had a speculum inserted. There is a small amount of whitish vaginal discharge noted and watery type consistency. There is no foul odor, greenish discharge or any yellowish discharge or thick mucus. No signs of any venereal warts or herpes genitalia noted. DIAGNOSTIC STUDIES: Wet prep completed with negative for bacterial vaginosis. Negative for yeast. Negative for trichomonas. Urinalysis was negative for any type of white blood cells, nitrates or blood in the urine. GC chlamydia was sent out. I will call the patient only if this is positive, otherwise she will consider this negative result. IMPRESSION/REPORT/PLAN Dysuria. Patient can continue to drink plenty of fluids, urinate when she needs to. I did encourage her to engage in safe sex especially if she does not want to become . Also if she does not have her period, if she has concern of , she should come and get rechecked or checked with herregular physician regarding this. NATIVIDAD:kaylynn Doc#: [id number] Electronically Signed By: BEATRICE MENDES RISK TECH On: 08/09/2012 09:34 AM Source: [facility] ISJDICTAPHONESYS Document Id: [id number] STRIPER documented in this encounter Miscellaneous Notes Miscellaneous - Conversion, Historical Provider Ser - 08/01/2012 5:19 PM HAND STRIPER Adult Family Law Legal Assistant Intake/History Adult Family Law Legal Assistant Intake/History Entered On: 08/01/2012 17:28 HAND STRIPER Performed On: 08/01/2012 17:19 HAND STRIPER by CHEYANNE BRYAN LPN Intake Chief Complaint : urinary frequency, also wants to be tested for stds Onset of Symptoms : frequency, a few days Ambulatory Intake Additional Information : denies pain Temperature Core : 36.6C(Converted to: 97.9DegF) Peripheral Pulse Rate : 66/min Respiratory Rate : 18/min Heart Rhythm : Regular Systolic Blood Pressure : 112mmHg Diastolic Blood Pressure : 60mmHg NIBP Mean : 77mmHg BP Location : Right upper extremity Blood Pressure Cuff Size : Large Actual Weight : 92.6kg(Converted to: 204lb 2oz) Weight Source : Standing scale Dosing Weight Clinic : 92.60kg CHEYANNE BRYAN BRENNA - 08/01/2012 17:19 HAND STRIPER Subjective Pain Symptoms : No CHEYANNE BRYAN BRENNA - 08/01/2012 17:19 HAND STRIPER Dependent Habits Tobacco Use/Currently Using : No Exposure to Tobacco Smoke : Lives with someone who smokes Smoking Status : Never smoker CHEYANNE BRYAN BRENNA - 08/01/2012 17:19 HAND STRIPER Caffeine Use Grid Caffeine Use : Current Type : Coffee Frequency : Daily CHEYANNE BRYAN BRENNA - 08/01/2012 17:19 HAND STRIPER Allergy Allergies (Active) Cats Estimated Onset Date: Unspecified ; Comment: has allergy to cats ; Created By: CLIVE MACKAY LPN; Reaction Status: Active ; Category: Other ; Substance: Cats ; Type: Allergy ; Updated By: RAYMOND MACKAY LPN; Reviewed Date: 08/01/2012 17:19 HAND STRIPER Source: [facility] DocumentCloudCHART Document Id: [id number] documented in this encounter Plan of Treatment Not on filedocumented as of this encounter Procedures Procedure Name Priority Date/Time Associated Comments Diagnosis CHLAMYDIA/GONORRHOEAE Routine 08/01/2012 5:35 PM Results for this AMPLIFIED RNA HAND STRIPER procedure are in the results section. CHLAMYDIA TRACHOMATIS Routine 08/01/2012 5:35 PM Results for this AMPLIFIED RNA HAND STRIPER procedure are in the results section. WET PREP EXAM, Routine 08/01/2012 5:35 PM Results for this UROGENITAL HAND STRIPER procedure are i n the results section. URINALYSIS, ROUTINE Routine 08/01/2012 5:20 PM Re sults for this HAND STRIPER procedure are i n the results section. documented in this encounter Results Chlamydia / Gonorrhoeae Amplified RNA (08/01/2012 5:35 PM HAND STRIPER) Component Value Ref Test Analysis Performed At [facility] gist Range Method Time Signature HX GC by Nucleic POWERCHART Acid Amplification HXFinal Negative for POWERCHART Neisseria gonorrhea by DNA amplification . HXFinal Reference: POWERCHART Negative Specimen (Source) Anatomical Collection Method Collection Time Re ceived Time Location / / Volume Laterality Cervix/Endocervix 08/01/2012 5:35 PM HAND STRIPER BeatriceRhonda Foreman APRNN.P., R.N. LAB MICROBIOLOGY - GENERAL ORDERABLES Performing Organization Address [facility] Phon e Number POWERCHART Chlamydia Trachomatis Amplified RNA (08/01/2012 5:35 PM HAND STRIPER) Component Value Ref Test Analysis Performed At [facility] Range Method Time Signature HXChlamydia by POWERCHART Nucleic Acid Amplification HXFinal Negative for POWERCHART Chlamydia trachomitis by DNA amplification. HXFinal Reference: POWERCHART Negative Specimen (Source) Anatomical Collection Method Collection Time Re ceived Time Location / / Volume Laterality Cervix/Endocervix 08/01/2012 5:35 PM HAND STRIPER BeatriceRhonda Foreman APRNN.P., R.N. LAB MICROBIOLOGY - GENERAL ORDERABLES Performing Organization Address [facility] Code Phon e Number POWERCHART Wet Prep Exam, Urogenital (08/01/2012 5:35 PM HAND STRIPER) athologist Signature HXWet Prep POWERCHART HXFinal No yeast, POWERCHART Trichomonas , clue cells, or sperm seen. Specimen (Source) Anatomical Collection Method Collection Time Re ceived Time Location / / Volume Laterality Vagina 08/01/2012 5:35 PM HAND STRIPER Beatrice Blue Rhonda Griffin APRNN.P., R.N. LAB MICROBIOLOGY - GENERAL ORDERABLES Performing Organization Address [facility] Phon e Number POWERCHART (ABNORMAL) Urinalysis, Routine (08/01/2012 5:20 PM HAND STRIPER) [facility] Method Time Signature pH, POCT, Urine 5.5 5.0 - 8.0 POWERCHART HXUr Color YELLOW POWERCHART Appearance CLEAR POWERCHART Specific >=1.030 (A) 1.008 - POWERCHART [place]saile, POCT, U 1.030 Protein, Ur, Dip Negative Negative POWERCHART Glucose Negative Negative POWERCHART Ketones, QL(U) Negative Negative POWERCHART HXBILIRUBIN Negative Negative POWERCHART HXBLOOD Negative Negative POWERCHART Leukocyte Negative Negative POWERCHART Esterase HXNITRITE Negative Negative POWERCHART Urobilinogen 0.2 0.2 - 1.0 POWERCHART Source Clean Void POWERCHART Urine Specimen (Source) Anatomical Collection Method Collection Time Re ceived Time Location / / Volume Laterality Urine 08/01/2012 5:20 PM HAND STRIPER Beatrice Blue Elias QUIROZ C.N.P., R.N. LAB URINE ORDERABL ES Performing Organization Address City/State/ZIP Code Phon e Number POWERCHART documented in this encounter Visit Diagnoses Not on filedocumented in this encounter Additional Health Concerns Assessment Noted Time PHQ-9 Depression Total Score: 24 07/02/2011 4:05 PM CD T documented as of this encounter
--- OUTSIDE RECORDS SUMMARY | 2022-07-09 20:45 | XMS_ITS | Encounter Summary ---
:1990 Author Organization [facility] Address [address] [place] [address] Care Team Providers Name Role Phone Unavailable Primary Care Provider Unavailable Encounter Details Date Type Department Care Team Description 03/20/2011 [facility] V[facility] P[facility]A.-C. [address] [place] [phone] (Wo rk) Social History Tobacco Use Types [...] do you attend orthodox or Never 2020 jehovah's witness services? Do [...] documented as of this encounter Progress Notes Vijay Morales P.A.-C. - 03/20/2011 6:49 PM CDT EC DATE OF SERVICE: 03/20/2011 REASON FOR VISIT Vaginal bleeding. HISTORY OF PRESENT ILLNESS Patient presents to urgent care complaining of a sudden onset of vaginal bleeding along with lower abdominal cramping, developed this morning. She stated her last menstrual period was 03/06/2011 and she is about a week or two early. She denies any vaginal discharge prior to onset of vaginal bleeding. She denies any trauma. She has had unprotected sex with same partner due to condom breakage on two occasions but she is on oral control pills. She denies any nausea. She did have sore throat and cough symptoms over the past 48 hours. Her grandmother gave her a medication from [place] which I suspect is a penicillin based medication, (spelling is penisodina), she says she took 2 tablets and one this morning and then the bleeding started. She denies any other noted changes such as breast tenderness or morning nausea. MEDICATIONS Only medications taken are the medication from [place] and oral control pills. ALLERGIES No medicine allergies. EXAMINATION VITAL SIGNS: Are contained in nurses notes, have been reviewed. GENERAL: Patient is awake, alert, Skin is warm and dry. LUNG: Sounds clear bilaterally. ABDOMEN: Soft, nontender, nondistended. Obese female. She has negative flank pain. PELVIC EXAMINATION: Has been deferred at patient request. She states her bleeding has slowed prior to arrival. DIAGNOSTIC DATA Urinalysis for red blood cells but negative otherwise. Urine is negative as well. IMPRESSION/REPORT/PLAN Dysfunctional uterine bleeding. Counseled patient that occasional midcycle bleeding, while abnormal for her is an occasional occurrence. Requested that she take Tylenol for any abdominal cramping. No vaginal intercourse and let us see how she progresses over the next few days. I did recommend she follow with primary care provider which is Dr. Walsh. If she develops worsening bleeding or increasing abdominal pain and/or fever she will need to return to the emergency department. LOURDES:raina Doc#: [id number] Electronically Signed By: VIJAY MORALES PA-C On: 03/23/2011 05:03 PM Source: [facility] ISJDICTAPHONESYS Document Id: [id number] documented in this encounter Miscellaneous Notes Miscellaneous - Vijay Morales P.A.-C. - 03/20/2011 7:23 PM CDT Ambulatory Patient Summary [address] [address] Visit Information Name: NORAH GIMENEZ Current Date: 03/20/2011 19:23:47 Primary Care Provider: GINNY MALDONADO MD Your Medications Here is a list of your medications. It is important to take your medications as directed. Use a pillbox or chart to help remind you to take your medications. Please let your doctor or nurse know if you have problems taking your medications. Medication/Strength Dose Route Frequency Indications/Special Instructions/Comments ethinyl estradiol-norgestimate (Ortho Cyclen) 1 tab Oral once a day Your Allergies & Intolerances Substance Reaction Symptoms Category Comments Cats Other has allergy to cats Your Problem List Problem Status Onset Comments Supervision of Normal First Active 05/16/2009 Encounter for Anatomic Survey Active 07/24/2009 Encounter for Other Specified Aftercare Following Surgery Active 12/12/2009 IUD - Intrauterine device procedure Active Family History of Diabetes Mellitus Active IUD - Removal of intrauterine device Active Anxiety With Depression Active 06/03/2010 Your Recommendations We want to make sure you get the tests, immunizations, and guidance you need to stay healthy. Here is a customized list of recommendations, based on information we have in your medical record. Your doctor may have additional recommendations for you, based on your personal medical history and risk factors. You can help us by calling us to make an appointment when you are due for your tests. Additional information regarding recommendations: Test/Treatment Last Done Next Due Additional Information Screening Chlamydia every 1 year Females Age 16-24 05/09/2010 05/09/2011 Depression: PHQ-9 every 6 months 03/20/2011 Vaccine: Tetanus every 10 years 05/14/2004 05/12/2014 Immunization to help prevent you from getting the serious disease Tetanus (Lockjaw). Your Upcoming Appointments Date Time Location Reason Provider No Appointments found Your Goals/Additional instructions: Source: [facility] POWERCHART Document Id: [id number] Miscellaneous - Vijay Morales P.A.-C. - 03/20/2011 7:23 PM CDT Ambulatory Depart Summary [place] - [address] [address] Visit Information Name: NORAH GIMENEZ Current Date: 03/20/2011 19:23:47 Primary Care Provider: GINNY MALDONADO MD NORAH GIMENEZ has been given the following list of medications: Your Medications It is important to take your medications as directed. Use a pill box or chart to help remind you to take your medications. Please let your doctor or nurse know if you have problems taking your medications. Medication/Strength Dose Route Frequency Indications/Special Instructions/Comments ethinyl estradiol-norgestimate (Ortho Cyclen) 1 tab Oral once a day Additional Information: Source: [facility] POWERCHART Document Id: [id number] Miscellaneous - Conversion, Historical Provider Ser - 03/20/2011 6:52 PM CDT Adult Aquatic Instructor Intake/History Adult Aquatic Instructor Intake/History Entered On: 03/20/2011 18:56 CDT Performed On: 03/20/2011 18:52 CDT by CHEYANNE BRYAN LPN Intake Chief Complaint: heavy vag bleeding Onset of Symptoms: today LMP Date: 03/06/11 Ambulatory Intake Additional Information: abd cramping, some clotting Temperature Core: 36.8C(Converted to: 98.2DegF) Peripheral Pulse Rate: 78/min Respiratory Rate: 20/min Systolic Blood Pressure: 111mmHg Diastolic Blood Pressure: 70mmHg NIBP Mean: 84mmHg BP Location: Left upper extremity Heart Rhythm: Regular CHEYANNE BRYAN LPN - 03/20/2011 18:52 CDT Subjective Pain Symptoms: Yes CHEYANNE BRYAN LPN - 03/20/2011 18:52 CDT Pain Pain Assessment Grid Pain 1 Location: Abdomen Laterality: Bilateral Intensity: 5 Time Pattern: Acute Onset: Gradual Quality: Cramping CHEYANNE BRYAN LPN - 03/20/2011 18:52 CDT Dependent Habits Tobacco Use/Currently Using: No Exposure to Tobacco Smoke: Lives with someone who smokes CHEYANNE BRYAN BRENNA - 03/20/2011 18:52 CDT Caffeine Use Grid Caffeine Use: Current Type: Coffee Frequency: Daily CHEYANNE BRYAN BRENNA - 03/20/2011 18:52 CDT Allergy Allergies (Active) Cats Estimated Onset Date: Unspecified ; Comment: has allergy to cats ; Created By: CLIVE MACKAY LPN; Reaction Status: Active ; Category: Other ; Substance: Cats ; Type: Allergy ; Updated By: RAYMOND MACKAY LPN; Reviewed Date: 03/20/2011 18:52 CDT [facility] Document Id: [id number] documented in this encounter Plan of Treatment Not on filedocumented as of this encounter Visit Diagnoses Not on filedocumented in this encounter
--- OUTSIDE RECORDS SUMMARY | 2022-07-09 20:45 | XMS_ITS | Encounter Summary ---
:1990 Author Organization [facility] Address [address] [place] [address] Care Team Providers Name Role Phone Unavailable Primary Care Provider Unavailable Encounter Details Date Type Department Care Team Description 06/20/2011 Hospital Encounter HX [facility] Dk Waters M.D. [address] [address] [place] [address] (Wo rk) Social History Tobacco Use Types [...] or relatives? How often do you attend scientology or Never 2020 quaker services? Do you belong to any clubs or No 06/25/2021 organizations such as scientology groups, unions, fraternal or athletic groups, or [...] CDT documented as of this encounter Progress Dk Chan M.D. - 06/20/2011 12:49 PM CDT EC DATE OF SERVICE: 06/20/2011 REASON FOR VISIT This 20-year-old female was seen on 06/20/2011 due to cough, congestion, some difficulty breathing, intermittent sore throat, and fever. HISTORY OF PRESENT ILLNESS The patient also has some back pain. The patient is already Keflex and naproxen due to the symptoms and what I understand is some mastitis, but I do not find any mention of this breast infection the patient refers to on a recent note from a recent visit. MEDICATIONS Reviewed. ALLERGIES Reviewed. EXAMINATION VITAL SIGNS: Reviewed. GENERAL: She is a very pleasant girl. She is hoarse. She does cough some during the visit and sneeze. HEENT: Ears are unremarkable. Pharynx is erythematous. Sinuses tender to percussion especially in the maxillary area. LUNGS: Clear to auscultation. HEART: Regular with clear S1 and S2. IMPRESSION/REPORT/PLAN 1. Sinusitis. 2. Bronchitis. I will use a Z-Sagar. The patient is to continue with Keflex and Guiatussin for cough. I checked the patients left breast which she had this infection, and to me it looks unremarkable. The patient said it is not as tender as it was, and she been on Keflex only 3 days. GDD:emanuel Doc#: [id number] cc: Electronically Signed By: DK MEYER MD On: 06/23/2011 04:58 PM Source: [facility] ISJDICTAPHONESYS Document Id: [id number] documented in this encounter Miscellaneous Notes Miscellaneous - Conversion, Historical Provider Ser - 06/20/2011 12:53 PM CDT Adult Apartment Maintenance Supervisor Intake/History Adult Apartment Maintenance Supervisor Intake/History Entered On: 06/20/2011 12:58 CDT Performed On: 06/20/2011 12:53 CDT by NILTON PANTOJA Intake Chief Complaint: Cough, congestion, difficulty breathing, intermittent sore throat, and intermittentfever. Also complains of low back pain with radiation into buttock on right side. Temperature Core: 36.4C(Converted to: 97.5DegF) (LOW) Peripheral Pulse Rate: 80/min Respiratory Rate: 12/min (LOW) Systolic Blood Pressure: 110mmHg Diastolic Blood Pressure: 90mmHg (HI) NIBP Mean: 97mmHg BP Location: Right upper extremity Heart Rhythm: Regular Oxygen Therapy: Room air Actual Weight: 87.400kg(Converted to: 192lb 11oz) Weight Source: Standing scale Dosing Weight Clinic: 87.40kg NILTON PANTOJA 06/20/2011 12:53 CDT General Info Information Given By: Patient Preferred Communication Mode: Verbal Languages: Nauruan NILTON PANTOJA 06/20/2011 12:53 CDT Subjective Pain Symptoms: No NILTON PANTOJA 06/20/2011 12:53 CDT Dependent Habits Tobacco Use/Currently Using: No Exposure to Tobacco Smoke: Lives with someone who smokes NILTON PANTOJA 06/20/2011 12:53 CDT Caffeine Use Grid Caffeine Use: Current Type: Coffee Frequency: Daily NILTON PANTOJA 06/20/2011 12:53 CDT Allergy Allergies (Active) Cats Estimated Onset Date: Unspecified ; Comment: has allergy to cats ; Created By: CLIVE MACKAY LPN; Reaction Status: Active ; Category: Other ; Substance: Cats ; Type: Allergy ; Updated By: RAYMOND MACKAY LPN; Reviewed Date: 06/18/2011 13:19 CDT [facility] Document Id: [id number] documented in this encounter Plan of Treatment Not on filedocumented as of this encounter Visit Diagnoses Not on filedocumented in this encounter
--- OUTSIDE RECORDS SUMMARY | 2022-07-09 20:45 | XMS_ITS | Encounter Summary ---
:1990 Author Organization [facility] Address [address] [place] [address] Care Team Providers Name Role Phone Unavailable Primary Care Provider Unavailable Encounter Details Date Type Department Care Team Description 10/26/2012 Hospital Encounter HX [facility] Todd Dinero [...] do you attend confucianist or Never 2020 spiritism services? Do you [...] Reading Time Taken Comments Blood Pressure 108/62 10/26/2012 10:34 AM SUPERANNUATION CLERK Pulse - - Temperature - - Respiratory Rate - - Oxygen Saturation - - Inhaled Oxygen Concentration - - Weight 90.4 kg (199 lb 4.7 oz) 10/26/2012 10:34 AM SUPERANNUATION CLERK Height - - Body Mass Index 40.72 05/20/2012 2:58 PM CDT documented in this encounter Progress Notes Todd Aponte M.D. - 10/26/2012 10:23 AM CST [id number] CHIEF COMPLAINT/REASON FOR VISIT Routine OB visit HISTORY OF PRESENT ILLNESS This patient is a 22-year-old G2, P1001 female with LMP of 08/31/2012 and EDC 06/09/2013 at 8-0/7 weeks. Patient presents for OB visit and OB ultrasound to confirm gestational age and cardiac activity.The patient had a positive chlamydia 10/05/2012 and was given a prescription for azithromycin 10/07/2012. She reports she took the medication. She has not had intercourse since taking medication. She is no longer with the father of the baby. The patient does complain of continued nausea with occasional emesis. She has tried symptomatic relief measures without resolution. She would like to start on antiemetic medication. No abdominal pain, cramping, tenderness or discomfort. No leaking of fluid, no vaginal bleeding. No shortness of breath or chest pain. No fevers or chills. No depression symptoms. She wants to keep thepregnancy. She reports the father of the baby is not involved. CURRENT MEDICATIONS 1. Generic vitamins 2. Zofran new prescription given today 3. Azithromycin 1 g prescribed 10/07/2012 ALLERGIES No known drug allergies. PAST MEDICAL/SURGICAL HISTORY 1. GERD currently on no medication 2. History of depression currently on no medication 3. History of overdose and suicide attempt on no medication 4. History of kidney stones on no medications. Past Surgical History 1. section 2009 Past Obstetrical History 1. section 11/26/2009 at 37-2/7 weeks male infant 6 pounds 10 ounces for arrest of dilation. ADULT PREVENTATIVE SERVICES Provided by Zohreh Beaulieu at [facility]. These records are not available for my review. SOCIAL HISTORY Patient is single. The father of the baby is not involved. She denies tobacco, alcohol, drug use. Nohistory of STD or PID. She has history of cervical dysplasia with abnormal Pap smear in 2009. She reports normal Pap smear after delivery. She denies history of abuse. VITAL SIGNS WEIGHT 90.4 kg BLOOD PRESSURE: 108/62 PULSE 74 PHYSICAL EXAMINATION GENERAL: Well developed, well nourished, obese, gravid female in no apparent distress. Alert and oriented times 3. Normal affect. ABDOMEN: Gravid, obese, soft and nontender. Fundal height not palpated. Negative Doptones are auscultated. Well-healed Pfannenstiel skin incision. EXTREMITIES: No edema or tenderness. GENITALIA: Genital exam normal external female genitalia, normal BUS, normal vaginal rugae without lesions. Normal multiparous cervical os without lesions. Cervix is closed, 4 cm thick. No cervical motion tenderness. Uterus is 8 weeks size, midposition, mobile, nontender. Exam is limited by body habitus. No adnexal masses or tenderness bilaterally. Exam is limited by body habitus. LABS 10/26/2012 new OB labs are drawn. Results are pending. LABS 10/05/2012 chlamydia positive, gonorrhea negative. PROCEDURE An obstetrical ultrasound is performed revealing a single intrauterine gestation. Gestational sac isseen and located at the fundus. Gestational sac measures 2.55 cm which is 7-5/7 weeks. One embryo isseen. Gilgo rump length is measured at 1.41 cm which is 7-5/7 weeks. Positive cardiac activity seen. heart rate is measured at 160 beats per minute. Yolk-sac is seen and appears normal. No abnormalities are seen. No myometrial masses. Cervical length is measured at 3.84 cm. Right and left ovaries are seen and appear normal. No adnexal masses. No free fluid. IMPRESSION/REPORT/PLAN 1. Intrauterine at 8-0/7 weeks. Positive cardiac activity on ultrasound. 2. History of prior section. 3. Nausea and vomiting in . 4. History of chlamydia on 10/05/2012 treated with antibiotics 5. Obesity 6. History of depression and suicide attempt currently asymptomatic on no medication Plan 1. I reviewed OB ultrasound results with patient showing appropriate gestational age with positive cardiac activity. This confirms her EDC is 06/07/2013 2. New OB labs drawn today 3. The patient reports she picked up the antibiotics and was treated with azithromycin for positive chlamydia. I recommend test of cure in 1 month. 4. I would like patient to follow up in 3 weeks for first OB history and physical examination and pelvic and Pap smear or be seen sooner p.r.n. 5. Symptomatic relief measures for nausea and vomiting are discussed with the patient. The patient would like to start on antiemetic therapy. I reviewed the risks, benefits, alternatives and indicationof antiemetic therapy with patient. I am giving the patient a prescription for Zofran 4 mg p.o. q. 8hours p.r.n. nausea #40 pills times 3 refills. I discussed use of this medication in . 6. Encourage fluids and hydration. 7. I briefly reviewed with patient her history of prior section with no vaginal deliveries.She is not a candidate for a trial of labor or a delivery at [facility]. I recommendelective repeat section at term. Patient verbalized understanding. Todd Aponte M.D./andrews Electronically Signed By: TODD APONTE MD On: 10/27/2012 03:38 PM Source: [facility] MHSDOLBEYNONRADSYS Document Id: [id number] RANNUATION CLERK documented in this encounter Miscellaneous Notes Miscellaneous - Todd Aponte M.D. - 11/07/2012 1:52 PM CST Results Notification Document Contains Addenda Addendum by ALDEN HONG on 09 November 2012 13:59:59 SUPERANNUATION CLERK done. From: TODD APONTE MD To: ALDEN HONG Sent: 11/07/2012 13:52:49 SUPERANNUATION CLERK ! Show up: 11/07/2012 19:52:49 [facility] Subject: Results Notification Actions: Note to Nurse Source: [facility] POWERCHART Document Id: [id number] Electronically signed by [facility] Corporate Statistical Financial Analyst [id number] at 02/24/2017 9:58 PM CDT Miscellaneous - Todd Aponte M.D. - 10/28/2012 7:53 AM CST Results Notification Document Contains Addenda Addendum by ALDEN HONG on 02 November 2012 16:15:14 SUPERANNUATION CLERK done. From: TODD APONTE MD To: ALDEN HONG Sent: 10/28/2012 07:53:01 SUPERANNUATION CLERK ! Show up: 10/28/2012 13:53:01 [facility] Subject: Results Notification Actions: Note to Nurse Source: [facility] POWERCHART Document Id: [id number] Electronically signed by Conversion, [facility] Corporate Statistical Financial Analyst [id number] at 02/24/2017 9:58 PM CDT Zaheer - Todd Aponte M.D. - 10/26/2012 4:41 PM CST Results Notification Document Contains Addenda Addendum by ALDEN HONG on 02 November 2012 16:15:24 SUPERANNUATION CLERK done. From: TODD APONTE MD To: ALDEN HONG Sent: 10/26/2012 16:41:33 SUPERANNUATION CLERK ! Show up: 10/26/2012 22:41:33 [facility] Subject: Results Notification Actions: Note to Nurse Source: [facility] POWERCHART Document Id: [id number] Electronically signed by Conversion, [facility] Corporate Statistical Financial Analyst [id number] at 02/24/2017 9:58 PM CDT Zaheer - Todd Aponte M.D. - 10/26/2012 11:00 AM CST Ambulatory Patient Summary [address] [address] Visit Information Name: NORAH GIMENEZ [facility] Number: [id number] Current Date: 10/26/2012 11:00:21 Physicians Attending Provider: TODD APONTE MD Primary Care Provider: PCP, ELSEWHERE Your Medications Here is a list of your medications. It is important to take your medications as directed. Use a pillbox or chart to help remind you to take your medications. Please let your doctor or nurse know if you have problems taking your medications. Medication/Strength Dose Route Frequency Indications/Special Instructions/Comments ondansetron (Zofran 4 mg oral tablet) 4 mg Oral every 8 hours multivitamin, ( Multivitamins oral tablet) 1 tab(s) [...] Upcoming Appointments Date Time Location Reason Provider 11/16/2012 10:30 [facility] Todd Aponte MD Your Goals/Additional instructions: Source: [facility] POWERCHART Document Id: [id number] RANNUATION CLERK Miscellaneous - Todd Aponte M.D. - 10/26/2012 11:00 AM CST [place] [address] Visit Information Name: AMMY NORAHJOSEY MAYORGA [facility] Number: [id number] Visit Date: 10/26/2012 11:00:21 Attending Provider: TODD APONTE MD Primary Care Provider: PCP, ELSEWHERE HIMANSHU GIMENEZJOSEY MAYORGA has been given the following list of medications: Your Medications It is important to take your medications as directed. Use a pill box or chart to help remind you to take your medications. Please let your doctor or nurse know if you have problems taking your medications. Medication/Strength Dose Route Frequency Indications/Special Instructions/Comments ondansetron (Zofran 4 mg oral tablet) 4 mg Oral every 8 hours multivitamin, ( Multivitamins oral tablet) 1 tab(s) Oral once a day acetaminophen (acetaminophen 500 mg oral tablet) 1,000 mg Oral every 6 hours as needed for Pain Attention: If you have any medications at home that are not on this list, DO NOT take them until youcontact your provider for clarification. Additional Information: Source: [facility] POWERCHART Document Id: [id number] RANNUATION CLERK Miscellaneous - Alden Hong L.P.N. - 10/26/2012 10:34 AM CST Adult Lead Driver Intake/History Adult Lead Driver Intake/History Entered On: 10/26/2012 10:36 SUPERANNUATION CLERK Performed On: 10/26/2012 10:34 SUPERANNUATION CLERK by ALDEN HONG Intake Chief Complaint : OB visit U/S 8 weeks c/o cramping and dark pink discharge LMP Date : 08/31/2012 Systolic Blood Pressure : 108mmHg Diastolic Blood Pressure : 62mmHg NIBP Mean : 77mmHg BP Location : Right upper extremity Blood Pressure Cuff Size : Regular Actual Weight : 90.4kg(Converted to: 199lb 5oz) Weight Source : Standing scale Dosing Weight Clinic : 90.40kg ALDEN HONG - 10/26/2012 10:34 SUPERANNUATION CLERK Subjective Pain Symptoms : No ALDEN HONG - 10/26/2012 10:34 SUPERANNUATION CLERK Dependent Habits Tobacco Use/Currently Using : No Exposure to Tobacco Smoke : Lives with someone who smokes, Other: none Smoking Status : Never smoker ALDEN HONG - 10/26/2012 10:34 SUPERANNUATION CLERK Caffeine Use Grid Caffeine Use : Current Type : Coffee Frequency : Daily ALDEN HONG - 10/26/2012 10:34 SUPERANNUATION CLERK Allergy Allergies (Active) Cats Estimated Onset Date: Unspecified ; Comment: has allergy to cats ; Created By: CLIVE MACKAY LPN; Reaction Status: Active ; Category: Other ; Substance: Cats ; Type: Allergy ; Updated By: RAYMOND MACKAY LPN; Reviewed Date: 10/26/2012 10:33 SUPERANNUATION CLERK Source: [facility] POWERCHART Document Id: [id number] RANNUATION CLERK documented in this encounter Plan of Treatment Not on filedocumented as of this encounter Procedures Procedure Name Priority Date/Time Associated Comments Diagnosis HXZZORDERS Routine 10/26/2012 11:00 AM Results for this SUPERANNUATION CLERK procedure are i n the results section. ABO GROUPING, B Routine 10/26/2012 11:00 AM Resul ts for this SUPERANNUATION CLERK procedure are i n the results section. PROFILE II Routine 10/26/2012 11:00 AM R esults for this WITHOUT CBC, B/SERUM SUPERANNUATION CLERK procedu re are in the results section. AUTOMATED Routine 10/26/2012 11:00 AM Results for this DIFFERENTIAL, B SUPERANNUATION CLERK procedure ar e in the results section. 1,25-DIHYDROXYVITAMI Routine 10/26/2012 11:00 AM Results for this N D, S SUPERANNUATION CLERK procedure are i n the results section. CBC WITH Routine 10/26/2012 11:00 AM Results for this DIFFERENTIAL, B SUPERANNUATION CLERK procedure ar e in the results section. ANTIBODY SCREEN, B Routine 10/26/2012 11:00 AM Re sults for this SUPERANNUATION CLERK procedure are i n the results section. THYROID-STIMULATING Routine 10/26/2012 11:00 AM R esults for this HORMONE-SENSITIVE SUPERANNUATION CLERK procedure are in (S-TSH) the results section. documented in this encounter Results Antibody Screen (10/26/2012 11:00 AM SUPERANNUATION CLERK) P athologist Signature Antibody Negative POWERCHART Screen Specimen (Source) Anatomical Collection Method Collection Time Re ceived Time Location / / Volume Laterality 10/26/2012 11:00 AM SUPERANNUATION CLERK Todd Aponte M.D. LAB BLOOD BANK TEST ORDERABL ES Performing Organization Address City/State/ZIP Code Phon e Number POWERCHART Grouping and Rh-Gerardo FLIP, see #[id number] (10/26/2012 11:00 AM SUPERANNUATION CLERK) Patholo gist Method Time Signature HX Grouping O Positive POWERCHART and Rh Specimen (Source) Anatomical Collection Method Collection Time Re ceived Time Location / / Volume Laterality 10/26/2012 11:00 AM SUPERANNUATION CLERK Todd Aponte M.D. LAB BLOOD BANK TEST ORDERABL ES Performing Organization Address City/State/ZIP Code Phon e Number POWERCHART (ABNORMAL) Automated Differential (10/26/2012 11:00 AM SUPERANNUATION CLERK) P athologist Signature Neutro % 60.4 34.0 - POWERCHART 71.1 Lymphocytes % 32.5 19.3 - POWERCHART 51.7 HX [place] % 6.4 4.7 - 12.5 POWERCHART HX Eos % 0.5 (L) 0.7 - 5.8 POWERCHART HX Baso % 0.2 0.1 - 1.2 POWERCHART Specimen Anatomical Collection Method Collection Time Receive d Time (Source) Location / / Volume Laterality Blood 10/26/2012 11:00 10/26/2012 AM SUPERANNUATION CLERK 11:00 AM SUPERANNUATION CLERK Todd Aponte M.D. LAB BLOOD ADD-ON Performing Organization Address City/State/ZIP Code Phon e Number POWERCHART CBC with Differential (10/26/2012 11:00 AM SUPERANNUATION CLERK) P athologist Signature Leukocytes 5.9 3.4 - 10.5 POWERCHART X109L Erythrocytes 4.11 3.90 - POWERCHART 5.03 [id number] Hemoglobin 12.2 12.0 - POWERCHART 15.5 GDL Hematocrit 35.5 34.9 - POWERCHART 44.5 MCV 86.4 82.0 - POWERCHART 98.0 FL Platelet Count 283 150 - 450 POWERCHART X109L HX RDW 12.5 11.9 - POWERCHART 15.5 HXDifferential? Auto POWERCHART Specimen (Source) Anatomical Collection Method Collection Time Re ceived Time Location / / Volume Laterality Blood 10/26/2012 11:00 AM SUPERANNUATION CLERK Todd Aponte M.D. LAB BLOOD ADD-ON Performing Organization Address City/State/ZIP Code Phon e Number POWERCHART (ABNORMAL) 1,25-Dihydroxyvitamin D (10/26/2012 11:00 AM SUPERANNUATION CLERK) Patholo gist Method Time Signature 1, 25 127 (H) 18 - 78 POWERCHART DIHYDROXYVITAMIN D, PGML S Comment: Test Performed by: [facility] [address] [place] [address] Law Tutor: Humberto anna III, M.D. Specimen (Source) Anatomical Collection Method Collection Time Re ceived Time Location / / Volume Laterality Blood 10/26/2012 11:00 AM SUPERANNUATION CLERK Todd Aponte M.D. LAB BLOOD ADD-ON Performing Organization Address [facility] Code Phon e Number POWERCHART Thyroid-Stimulating Hormone-Sensitive (s-TSH) (10/26/2012 11:00 AM SUPERANNUATION CLERK) athologist Signature TSH, Sensitive 1.5 0.3 - 5.0 POWERCHART MIUL Comment: Test Performed by: [facility] [place] [address] Law Tutor: Humberto anna III, M.D. Specimen (Source) Anatomical Collection Method Collection Time Re ceived Time Location / / Volume Laterality Blood 10/26/2012 11:00 AM SUPERANNUATION CLERK Todd Aponte M.D. LAB BLOOD ADD-ON Performing Organization Address [facility] Phon e Number POWERCHART Profile II without CBC/Serum (10/26/2012 11:00 AM SUPERANNUATION CLERK) athologist [facility] [place] HX Rubella Negative POWERCHART IgG-[place] Comment: -- REFERENCE VALUE -- Negative Syphilis IgG Ab, S Negative Negative POWERCHART Comment: No serologic evidence of exposu re to syphilis. HBs Antigen, S Negative Negative POWERCHART Comment: Test Performed by: [facility] [place] [address] Law Tutor: Humberto anna III, M.D. Specimen (Source) Anatomical Collection Method Collection Time Re ceived Time Location / / Volume Laterality Blood 10/26/2012 11:00 AM SUPERANNUATION CLERK Todd Aponte M.D. LAB BLOOD NON ADD-ON Performing Organization Address City/[facility] Phon e Number POWERCHART HXZZORDERS (10/26/2012 11:00 AM SUPERANNUATION CLERK) athologist [facility] [place] HIV-1/-2 Negative Negative POWERCHART Antibody Comment: Negative [...] negative. Testing is performed using the Ortho Vit ros Anti-HIV 1+2 chemiluminescence immunoassay. Test Performed by: [place] [address] Law Tutor: Humberto anna III, M.D. Specimen (Source) Anatomical Collection Method Collection Time Re ceived Time Location / / Volume Laterality Blood 10/26/2012 11:00 AM SUPERANNUATION CLERK Todd Aponte M.D. LAB HISTORICAL ORDERS Performing Organization Address City/State/ZIP Code Phon e Number POWERCHART documented in this encounter Visit Diagnoses Not on filedocumented in this encounter Additional Health Concerns Assessment Noted Time PHQ-9 Depression Total Score: 24 07/02/2011 4:05 PM CD T documented as of this encounter
--- OUTSIDE RECORDS SUMMARY | 2022-07-09 20:45 | XMS_ITS | Encounter Summary ---
:1990 Author Organization [facility] Address [address] [place] [address] Care Team Providers Name Role Phone Unavailable Primary Care Provider Unavailable Encounter Details Date Type Department Care Team Description 11/23/2012 Hospital Encounter [facility]X [facility] Todd Dinero [...] do you attend mosque or Never 2020 gnosticism services? Do you [...] Reading Time Taken Comments Blood Pressure 120/72 11/23/2012 1:32 PM LMSW Pulse - - Temperature - - Respiratory Rate - - Oxygen Saturation - - Inhaled Oxygen Concentration - - Weight 89.7 kg (197 lb 12 oz) 11/23/2012 1:32 PM LMSW Height 149 cm (4' 10.66) 11/23/2012 1:32 PM LMSW Body Mass Index 40.4 11/23/2012 1:32 PM LMSW documented in this encounter H&P Notes Todd Aponte M.D. - 11/23/2012 1:25 PM CST [id number] CHIEF COMPLAINT/REASON FOR VISIT First OB history, physical examination HISTORY OF PRESENT ILLNESS This patient is a 22-year-old G2, P1001 female with LMP 08/31/2012 and EDC 06/07/2013 at 12-0/7 weeks. Patient presents for first OB history, physical examination, she is doing well. Her nausea and vomiting symptoms have resolved. She is taking only occasional Zofran. No bleeding. No cramping. No tenderness or discomfort. No pelvic pressure. No vaginal itching, irritation or discharge. No difficulty urinating, no dysuria, hematuria or flank pain. No fevers or chills. No headaches, vision changes. Nodepression symptoms. No suicidal thoughts. She is not feeling baby move yet. She reports that her mother's going to be her support person and she reports that her boyfriend is no longer supporting her.He is not going to be involved in this . CURRENT MEDICATIONS 1 Generic vitamins 2. Zofran as needed. ALLERGIES No known drug allergies. SYSTEMS REVIEW As per HPI, otherwise negative. PAST MEDICAL/SURGICAL HISTORY 1. GERD currently on no medication 2. History of depression currently asymptomatic on no medication 3. History of overdose, suicide attempt asymptomatic on no medication 4. History of kidney stones asymptomatic on no medication. Past Surgical History section 2009 Past Obstetrical History 1. section 11/26/2009 at 37-2/7 weeks male 6 pounds 10 ounces for arrest of dilation. Operation report shows low segment transverse uterine incision. ADULT PREVENTATIVE SERVICES Provided by Zohreh Beaulieu at [facility]. These records are not available for my review. SOCIAL HISTORY Patient is single. The father of the baby is not involved. Her mother is her support person. She denies tobacco, alcohol, drug use. She has history of chlamydia 10/05/2012 which was treated. No historyof PID. She has history of cervical dysplasia with abnormal Pap smear 2009 with normal followup Pap smear. No history of abuse. FAMILY HISTORY Mother, father and paternal grandfather with diabetes. No hypertension. No coronary artery disease. No breast cancer, colon cancer or ovarian cancer. VITAL SIGNS WEIGHT to 89.7 kg HEIGHT 149 cm BLOOD PRESSURE: 120/72 PULSE 70 RESPIRATION 18 TEMPERATURE 36.4 PHYSICAL EXAMINATION GENERAL: Well-developed, well-nourished obese female [...] bilaterally with good inspiratory effort. ABDOMEN: Soft, obese, nontender, and nondistended. Positive bowel sounds. No enlarged groin nodes palpable. No hepatosplenomegaly. No rebound. No guarding. No evidence of hernias present. Well healed Pfannenstiel skin incision. Positive Doptones are auscultated 160 beats per minute. RECTUM: Normal sphincter tone. Examination confirms genital examination. GENITALIA: Normal external female genitalia. Normal BUS. Normal vaginal rugae without lesions. Normal multiparous cervical os without lesions. Cervix is closed, 4 cm thick. Uterus: 12 week size, midposition, mobile and nontender. Exam is limited by body habitus. No adnexal masses or tenderness bilaterally. Exam is limited by body habitus. SPINE: No CVA tenderness bilaterally. EXTREMITIES: No clubbing, cyanosis or edema. Nontender bilaterally. GAIT: Normal gait. NEURO: No gross motor or sensory deficits noted. LABS 10/26/2012 blood type O+, antibody screen negative, hemoglobin 12.2, hematocrit 35.5, platelets 283,rubella nonimmune, serology negative, hepatitis B surface antigen negative, HIV negative, TSH 1.5, vitamin D 127 LABS 10/05/2012 chlamydia positive. LABS 11/23/2012 repeat LCR for GC, chlamydia obtained. IMPRESSION/REPORT/PLAN 1. Intrauterine at 12-0/7 weeks. Positive cardiac activity. 2. History of prior section with documented low segment transverse uterine incision. 3. Nausea and vomiting in improving on medication 4. History of chlamydia which was treated 10/05/2012 5. Rubella nonimmune status. 6. Obesity 7. History of depression, suicide attempt currently asymptomatic on no medication Plan 1. Repeat LCR for GC, chlamydia obtained today. The patient was treated on 10/05/2012. We are doing test of cure 2. Pap smear not performed as the patient is under age 23 3. Recommend patient follow up in 4 weeks for OB visit or be seen sooner p.r.n. 4. Routine OB precautions, recommendations and instructions are reviewed with patient including movement and kick counts 5. Miscarriage precautions reviewed with the patient 6. Depression precautions reviewed with the patient 7. I recommend elective repeat section at term. Patient is not a candidate or trial oflabor candidate as she has had only 1 with a section. She verbalized understanding and agrees with this course of action. 8. Encourage fluids and hydration. Todd Aponte M.D./andrews DOCID: [id number] Electronically Signed By: TODD APONTE MD On: 11/24/2012 02:50 PM Source: [facility] MHSDOLBEYNONRADSYS Document Id: [id number] documented in this encounter Miscellaneous Notes Miscellaneous - Todd Aponte M.D. - 11/25/2012 10:04 AM CST Results Notification Document Contains Addenda Addendum by ALDEN HONG on 01 December 2012 10:40:44 LMSW filed in OB chart. From: TODD APONTE MD To: ALDEN HONG Sent: 11/25/2012 10:04:14 LMSW ! Show up: 11/25/2012 16:04:14 [facility] Subject: Results Notification Actions: Note to Nurse Source: [facility] POWERCHART Document Id: [id number] Electronically signed by Maycol [facility] Director Process [id number] at 02/24/2017 10:22 AM CDT Todd Borja M.D. - 11/23/2012 2:06 PM CST Ambulatory Depart Summary [address] [address] Visit Information Name: NORAH GIMENEZ [facility] Number: [id number] Visit Date: 11/23/2012 14:06:10 Attending Provider: TODD APONTE MD Primary Care [...] your provider for clarification. Additional Information: Source: [facility] POWERCHART Document Id: [id number] Todd Borja M.D. - 11/23/2012 2:06 PM CST Ambulatory Patient Summary [address] [address] Visit Information Name: NORAH GIMENEZ [facility] Number: [id number] Current Date: 11/23/2012 14:06:11 Physicians Attending Provider: TODD APONTE MD Primary [...] Upcoming Appointments Date Time Location Reason Provider 12/21/2012 13:30 [facility] PRODUCE RUNNER ob Todd Aponte MD Your Goals/Additional instructions: Source: [facility] POWERCHART Document Id: [id number] Miscellaneous - Alden Hong LWanderPWanderN. - 11/23/2012 1:32 PM CST Adult Trade Sales Assistant Intake/History Adult Trade Sales Assistant Intake/History Entered On: 11/23/2012 13:34 LMSW Performed On: 11/23/2012 13:32 LMSW by ALDEN HONG Intake Chief Complaint : OB visit 12 weeks LMP Date : 08/31/2012 Systolic Blood Pressure : 120mmHg Diastolic Blood Pressure : 72mmHg NIBP Mean : 88mmHg BP Location : Right upper extremity Blood Pressure Cuff Size : Regular Height : 149cm(Converted to: 4ft 11inch(es), 58.66inch(es)) Actual Weight : 89.7kg(Converted to: 197lb 12oz) Weight Source : Standing scale Dosing Weight Clinic : 89.70kg Clinic BSA : 1.93 Body Mass Index : 40.40kg/m2 ALDEN HONG - 11/23/2012 13:32 LMSW General Info Information Given By : Patient Languages : Bruneian ALDEN HONG - 11/23/2012 13:32 LMSW Subjective Pain Symptoms : No ALDEN HONG - 11/23/2012 13:32 LMSW Dependent Habits Tobacco Use/Currently Using : No Exposure to Tobacco Smoke : Lives with someone who smokes, Other: none Smoking Status : Never smoker ALDEN HONG - 11/23/2012 13:32 LMSW Caffeine Use Grid Caffeine Use : Current Type : Coffee Frequency : Daily ALDEN HONG 11/23/2012 13:32 LMSW Allergy Allergies (Active) Cats Estimated Onset Date: Unspecified ; Comment: has allergy to cats ; Created By: CLIVE MACKAY LPN; Reaction Status: Active ; Category: Other ; Substance: Cats ; Type: Allergy ; Updated By: RAYMOND MACKAY LPN; Reviewed Date: 11/23/2012 13:31 LMSW Source: [facility] POWERCHART Document Id: [id number] documented in this encounter Plan of Treatment Not on filedocumented as of this encounter Procedures Procedure Name Priority Date/Time Associated Diagnosis Comme nts N GONOR AMP SRC Routine 11/23/2012 2:29 PM Result s for this LMSW procedure are i n the results section. N GONOR AMP DNA Routine 11/23/2012 2:29 PM Result s for this LMSW procedure are i n the results section. C TRACH AMP SRC Routine 11/23/2012 2:29 PM Result s for this LMSW procedure are i n the results section. C TRACH AMP RNA Routine 11/23/2012 2:29 PM Result s for this LMSW procedure are i n the results section. documented in this encounter Results HX-N gonor Amp DNA (11/23/2012 2:29 PM LMSW) P athologist Signature HXN gonor Amp Negative POWERCHART DNA-[place] Specimen (Source) Anatomical Collection Method Collection Time Re ceived Time Location / / Volume Laterality 11/23/2012 2:29 PM LMSW Narrative POWERCHART - 11/24/2012 6:01 PM LMSW Test Performed by: [address] [address] Tyre Builder: Humberto R. Cockeri ll, III, M.D. Todd Aponte M.D. LAB HISTORICAL ORDERS Performing Organization Address City/State/ZIP Code Phon e Number POWERCHART HX-N gonor Amp Src (11/23/2012 2:29 PM LMSW) P athologist Signature HXN gonor Amp URINE POWERCHART Src-[place] Specimen (Source) Anatomical Collection Method Collection Time Re ceived Time Location / / Volume Laterality 11/23/2012 2:29 PM LMSW Todd Aponte M.D. LAB HISTORICAL ORDERS Performing Organization Address City/State/ZIP Code Phon e Number POWERCHART HX-C trach Amp RNA (11/23/2012 2:29 PM LMSW) [facility] gist Method Time Signature Chlamydia Negative POWERCHART trachomatis amplified RNA Specimen (Source) Anatomical Collection Method Collection Time Re ceived Time Location / / Volume Laterality 11/23/2012 2:29 PM LMSW Todd Aponte M.D. LAB HISTORICAL ORDERS Performing Organization Address City/State/ZIP Code Phon e Number POWERCHART HX-C trach Amp Src (11/23/2012 2:29 PM LMSW) P athologist Signature HXC trach Amp URINE POWERCHART Src-[place] Specimen (Source) Anatomical Collection Method Collection Time Re ceived Time Location / / Volume Laterality 11/23/2012 2:29 PM LMSW Todd Aponte M.D. LAB HISTORICAL ORDERS Performing Organization Address City/State/ZIP Code Phon e Number POWERCHART documented in this encounter Visit Diagnoses Not on filedocumented in this encounter Additional Health Concerns Assessment Noted Time PHQ-9 Depression Total Score: 1 11/16/2012 11:45 AM CS T documented as of this encounter
--- OUTSIDE RECORDS SUMMARY | 2022-07-09 20:45 | XMS_ITS | Encounter Summary ---
:1990 Author Organization [facility] Address [address] [place] [address] Care Team Providers Name Role Phone Unavailable Primary Care Provider Unavailable Encounter Details Date Type Department Care Team Description 01/09/2011 Hospital Encounter HX [facility] Dk Randolph M.D. [address] [address] [place] [address] (Wo rk) Social History Tobacco Use Types [...] or relatives? How often do you attend zoroastrianism or Never 2020 jainism services? Do you belong to any clubs or No 06/25/2021 organizations such as zoroastrianism groups, unions, fraternal or athletic groups, or [...] this encounter Progress Dk Chan M.D. - 01/09/2011 10:57 AM CDT [facility] DATE OF SERVICE: 01/09/2011 REASON FOR VISIT This 20-year-old female was seen on 01/09/2011 because she has noticed that there is some white spots on her tonsils and she has been feeling a little nauseated, some abdominal discomfort and dizzy. HISTORY OF PRESENT ILLNESS She has not had any fever. She said her throat hurts the most. The patient had a swab for strep thatwas negative but she wanted to be seen because she had too many symptoms and needed to have that addressed. ALLERGIES No allergies to medications. She has allergies to CATS. EXAMINATION HEENT: Head is normocephalic and atraumatic. Mucous membranes are moist. The pharynx is erythematous. Tonsils enlarged and with some exudates. NECK: Supple. LUNGS: Clear to auscultation. HEART: Regular with clear S1 S2. IMPRESSION/REPORT/PLAN Pharyngitis. Z-Sagar order and patient instructed to come if symptoms worsen or she does not improve. GDD:raina Doc#: [id number] Electronically Signed By: DK MEYER MD On: 01/13/2011 08:01 Source: [facility] ISJDICTAPHONESYS Document Id: [id number] documented in this encounter Miscellaneous Notes Miscellaneous - Pia Mae, C.M.A. - 01/09/2011 11:04 AM CDT Adult Tax Representative Intake/History Adult Tax Representative Intake/History Entered On: 01/09/2011 11:08 CDT Performed On: 01/09/2011 11:04 CDT by PIA MEA Intake Chief Complaint: swollen tonsils with white spots, nausea, occasional blurred vision, dizziness Onset of Symptoms: 2 days ago Temperature Core: 36.7C(Converted to: 98.1DegF) Peripheral Pulse Rate: 84/min Respiratory Rate: 20/min Systolic Blood Pressure: 112mmHg Diastolic Blood Pressure: 72mmHg NIBP Mean: 85mmHg BP Location: Right upper extremity Height: 149.50cm(Converted to: 4ft 11in, 58.86in) Actual Weight: 86.100kg(Converted to: 189lb 13oz) Dosing Weight Clinic: 86.10kg Clinic BSA: 1.89 Body Mass Index: 38.52kg/m2 PIA MAE - 01/09/2011 11:04 CDT Subjective Pain Symptoms: Yes PIA MAE 01/09/2011 11:04 CDT Pain Pain Assessment Grid Pain 1 Pain 2 Location: Throat Head Laterality: Bilateral Bilateral Intensity: 9 5 PIA MAE - 01/09/2011 11:04 CDT PIA MAE 01/09/2011 11:04 CDT Dependent Habits Tobacco Use/Currently Using: No Exposure to Tobacco Smoke: Lives with someone who smokes PIA MAE 01/09/2011 11:04 CDT Caffeine Use Grid Caffeine Use: Current Type: Coffee Frequency: Daily PIA MAE 01/09/2011 11:04 CDT Allergies Allergies (Active) Cats Estimated Onset Date: Unspecified ; Comment: has allergy to cats ; Created By: CLIVE MACKAY LPN; Reaction Status: Active ; Category: Other ; Substance: Cats ; Type: Allergy ; Updated By: RAYMOND MACKAY LPN; Reviewed Date: 01/09/2011 11:02 CDT [facility] Document Id: [id number] documented in this encounter Plan of Treatment Not on filedocumented as of this encounter Visit Diagnoses Not on filedocumented in this encounter
--- OUTSIDE RECORDS SUMMARY | 2022-07-09 20:45 | XMS_ITS | Encounter Summary ---
:1990 Author Organization [facility] Address [address] [place] [address] Care Team Providers Name Role Phone Unavailable Primary Care Provider Unavailable Encounter Details Date Type Department Care Team Description 07/01/2011 Hospital Encounter HX [facility] Javier Sanderson M.D. [address] [place] [address] (Wo rk) Social History Tobacco Use Types [...] do you attend gnosticist or Never [employer] services? Do you belong to any clubs [...] CDT documented as of this encounter Progress Eri Bañuelos M.D. - 07/01/2011 1:35 PM CDT [facility] DATE OF SERVICE: 07/01/2011 REASON FOR VISIT Norah is a 21-year-old who is here today with complaints of nausea and vomiting along with nasal congestion and shortness of breath which has been going on for the last 3-4 days. HISTORY OF PRESENT ILLNESS She tells me she has been having really bad congestion along with high fever which she has never measured at home. Also has some headaches with it, but says she does not feel like these are her sinusesbut just coughing yet. Also has been having some abdominal pains which are mostly crampy in nature and have been in the lower abdomen. Says it all started about 3-4 days back when she was having some diarrhea to go along with it. The diarrhea has resolved since then, but she still feels nauseous. She tells me she has not been able to eat anything for the last 2-3 days, but yesterday she started eating again and was able to keep it down, too. Norah also tells me that she is feeling very anxious at this point since she does not know what is going on with her. She has past medical history of depression and anxiety. Says she was on Prilosec for this, but she stopped taking it since she thought it was not doing much for her. At this point she appears pretty anxious and tells me that she thinks she is also depressed. Says she does not feel like doing anything for the last many weeks. Also has not been sleeping as well as she used to. Tells me that she feels tired all the time and says that she feels like she has lost interest in everything.On asking, she said she feels hopeless and says that she feels like she is letting everybody down. Says she does not have any suicidal or homicidal ideations and never even would consider doing that. PAST MEDICAL, FAMILY, AND SOCIAL HISTORY Medical: 1. History of depression. 2. Anxiety. Surgical: None. Family: High blood pressure. Social: No history of any alcohol, drug, or tobacco abuse. MEDICATIONS Please see completed chart in the EMR. ALLERGIES CATS. REVIEW OF SYSTEMS Eyes: No blurring, itching, loss of vision or pain. ENT: Nasal congestion. No complaints of any sore throat. Respiratory: Has shortness of breath. No dyspnea or wheezing. Cardiovascular: No chest pain, orthopnea, peripheral edema. Gastrointestinal: See history of present illness. Genitourinary: Complains of dysuria and increased frequency of urination. Says she has not been running any fever but on questioning she remembered she is going to the bathroom more often. Denies any vaginal discharge. Musculoskeletal: No joint pain, stiffness, or swelling. Neurological: No dizziness or vertigo. No weakness, numbness, paresthesia. Skin: No worrisome lesions. Endocrine: Negative. Psychiatric: See history of present illness. EXAMINATION VITAL SIGNS: Blood pressure 104/58 with a respiratory rate of 16 and a peripheral pulse rate of 66. She is afebrile with temperature of 37.1. On asking, she denies usage of any Tylenol or Motrin today. HEAD: No sinus tenderness. EYES: No redness or discharge. ENT: Bilateral tympanic membranes are clear. NOSE: Some clear nasal discharge is seen. No sinus pressure, tenderness. THROAT: Pharynx is normal. Tonsils are not enlarged. No pus pockets seen. RESPIRATORY: Bilateral lungs are clear. No wheezes, rales, or rhonchi. Does not appear in any kind of respiratory distress at this point. CARDIOVASCULAR: S1 and S2 are normal. Peripheral pulsations are normal. No pedal edema noted. ABDOMEN: Nontender to palpation. No guarding or rigidity. Bowel sounds are present. MUSCULOSKELETAL: Gait and spine are normal. PSYCHOLOGICAL: Mood appears anxious right now. NEUROLOGICAL: Alert and oriented x 3. DIAGNOSTIC DATA 1. CBC: WBC counts are within normal limits. 2. Chest x-ray does not show any acute processes. 3. UA is negative for urinary tract infection. IMPRESSION/REPORT/PLAN 1. Upper respiratory tract infection. Will go ahead and treat this with Z-Sagar. We also gave her a nasal steroid inhaler. Also asked her todo steam inhalations. She can continue to use Tylenol or Motrin. If she still continues to be febrile she will get back in touch with us. 2. Depression and anxiety. PHQ-9 score in the clinic today was 22. She tells me that she has been on medication before, but shedoes not like taking it so she does not take it. She would like to go ahead and get something started at this point. Will go ahead and start her on Zoloft 25 mg. I did talk to her regarding getting psychotherapy involved as well. She does not want to see Dr. Sanchez right now. Says she will try the medications first and see if she is getting any kind of help from there. No suicidal or homicidal ideations at this point. Side effects have been explained to her and she agrees to call me if she has any side effects at all or get medical help immediately. She will come back and followup with me in about 2 weeks time for this. FA:alisa Doc#: [id number] cc: Electronically Signed By: ERI HERRERA MD On: 07/06/2011 03:14 PM Source: [facility] [employer] Document Id: [id number] documented in this encounter Miscellaneous Notes Miscellaneous - Jaimee Tatum L.P.NWander - 07/02/2011 4:05 PM CDT PHQ-9 PHQ-9 Entered On: 07/02/2011 16:05 CDT Performed On: 07/02/2011 16:05 CDT by JAIMEE TATUM LPN PHQ-9 Little interest or pleasure in doing things: Nearly every day Feeling down, depressed, or hopeless: Nearly every day Trouble falling or staying asleep, or sleeping too much: Nearly every day Feeling tired or having little energy: Nearly every day Poor appetite or overeating: Nearly every day Feeling bad about yourself or that you are a failure: Nearly every day Trouble concentrating on things: Nearly every day Moving or speaking slowly; restless or fidgety: Nearly every day Thoughts that you would be better off /hurting self: Not at all PHQ-9 Calculated Score: 24 JAIMEE TATUM LPN - 07/02/2011 16:05 CDT Source: [facility] POWERCHART Document Id: [id number] CDT!12 Miscellaneous - Eri Herrera M.D. - 07/01/2011 2:53 PM CDT Ambulatory Patient Summary [facility] - [address] [place] [id number] Visit Information Name: NORAH GIMENEZ Current Date: 07/01/2011 14:53:34 Primary Care Provider: GINNY MALDONADO MD Your Medications Here is a list of your medications. It is important to take your medications as directed. Use a pillbox or chart to help remind you to take your medications. Please let your doctor or nurse know if you have problems taking your medications. Medication/Strength Dose Route Frequency Indications/Special Instructions/Comments azithromycin (azithromycin 250 mg oral tablet) 2 tablets on day 1, then 1 tablet on days 2-5 Oral asdirected for 5 Days fluticasone nasal (Flonase 0.05 mg/inh nasal [...] 05/09/2010 05/09/2011 Depression: PHQ-9 every 6 months 07/01/2011 Vaccine: Tetanus every 10 years 05/14/2004 05/12/2014 Immunization to help prevent you from getting the serious disease Tetanus (Lockjaw). Your Upcoming Appointments Date Time Location Reason Provider No Appointments found Your Goals/Additional instructions: Source: [facility] POWERCHART Document Id: [id number] Electronically signed by Conversion, [facility] Manager [employer]itness [id number] at 02/28/2017 4:28 PM CDT Yessicacellaneous - Eri Herrera M.D. - 07/01/2011 2:53 PM CDT Ambulatory Depart Summary [address] [address] Visit Information Name: NORAH GIMENEZ Current Date: 07/01/2011 14:53:33 Primary Care Provider: GINNY MALDONADO MD NORAH GIMENEZ has been given the following list of medications: Your Medications It is important to take your medications as directed. Use a pill box or chart to help remind you to take your medications. Please let your doctor or nurse know if you have problems taking your medications. Medication/Strength Dose Route Frequency Indications/Special Instructions/Comments azithromycin (azithromycin 250 mg oral tablet) 2 tablets on day 1, then 1 tablet on days 2-5 Oral asdirected for 5 Days fluticasone nasal (Flonase 0.05 mg/inh nasal spray) 2 spray(s) Nasal two times a day sertraline (Zoloft 25 mg oral tablet) 25 mg Oral once a day ethinyl estradiol-norgestimate (Ortho Cyclen) 1 tab Oral once a day Additional Information: Source: [facility] POWERCHART Document Id: [id number] Electronically signed by Conversion, [facility] Manager [employer]itness [id number] at 02/28/2017 4:28 PM CDT Miscellaneous - Jaimee Tatum, L.P.N. - 07/01/2011 1:46 PM CDT Adult Lean Consultant Intake/History Adult Lean Consultant Intake/History Entered On: 07/01/2011 13:50 CDT Performed On: 07/01/2011 13:46 CDT by JAIMEE TATUM [employer] OF MEASUREMENT [employer] INSIGHTS Intake Chief Complaint: chest pains, nausea, vomitting, high fevers, hard to breath, congestion Temperature Core: 37.1C(Converted to: 98.8DegF) Peripheral Pulse Rate: 66/min Respiratory Rate: 16/min Systolic Blood Pressure: 104mmHg Diastolic Blood Pressure: 58mmHg NIBP Mean: 73mmHg BP Location: Left upper extremity Heart Rhythm: Regular Height: 149.00cm(Converted to: 4ft 11inch(es), 58.66inch(es)) Actual Weight: 86.700kg(Converted to: 191lb 2oz) Dosing Weight Clinic: 86.70kg Clinic BSA: 1.89 Body Mass Index: 39.05kg/m2 JAIMEE TATUM LPN - 07/01/2011 13:46 CDT General Info Information Given By: Patient Preferred Communication Mode: Verbal Languages: Grenadian JAIMEE TATUM LPN - 07/01/2011 13:46 CDT Subjective Pain Symptoms: Yes JAIMEE TATUM LPN - 07/01/2011 13:46 CDT Pain Pain Assessment Grid Pain 1 Location: Neck Laterality: Left JAIMEE TATUM LPN - 07/01/2011 13:46 CDT Dependent Habits Tobacco Use/Currently Using: No Exposure to Tobacco Smoke: Lives with someone who smokes JAIMEE TATUM LPN - 07/01/2011 13:46 CDT Caffeine Use Grid Caffeine Use: Current Type: Coffee Frequency: Daily JAIMEE TATUM LPN - 07/01/2011 13:46 CDT Allergy Allergies (Active) Cats Estimated Onset Date: Unspecified ; Comment: has allergy to cats ; Created By: CLIVE MACKAY LPN; Reaction Status: Active ; Category: Other ; Substance: Cats ; Type: Allergy ; Updated By: RAYMOND MACKAY LPN; Reviewed Date: 07/01/2011 13:45 CDT Source: [facility] [employer] Document Id: [id number] CDT!35 Miscellaneous - Eri Herrera M.D. - 07/01/2011 1:35 PM CDT CL July 06, 2011 NORAH GIMENEZ [address] [place] [address] [address]IREZ [id number] Patient Date of : 1990 Dear Norah: I am writing this letter to inform you about the test results of your blood tests and x-ray that we had done during your clinic visit. I am happy to tell you that at this point your complete blood count is within normal limits. Your chest x-ray was normal and did not show any acute process. Also your urinalysis was negative for urinary tract infection as I informed you during your clinic visit. Do remember to follow up with me as we had planned earlier for a followup on your Zoloft medication. If you have any questions or concerns, please feel free to call me back at the clinic number. Sincerely, Eri Herrera M.D. [facility] FA:cg Doc#: [id number] Enclosures: cc: Electronically Signed By: ERI HERRERA MD On: 07/06/2011 03:31 PM This document has images extracted. Source: [facility] Document Id: [id number] documented in this encounter Plan of Treatment Not on filedocumented as of this encounter Procedures Procedure Name Priority Date/Time Associated Diagnosis Comme nts DX CHEST AP OR PA Routine 07/01/2011 2:13 PM Resu lts for this AND LATERAL 2 VIEWS CDT procedur e are in the results section. documented in this encounter Results DX Chest AP or PA and Lateral 2 Views (07/01/2011 2:13 PM CDT) Anatomical Region Laterality Modality Chest N/A Radiographic Imaging Specimen (Source) Anatomical Collection Method Collection Time Re ceived Time Location / / Volume Laterality 07/01/2011 2:13 PM CDT Impressions 07/01/2011 3:12 PM CDT ?? No radiographic evidence of acute cardio pulmonary disease. Narrative 07/01/2011 3:12 PM CDT Technique: PA and lateral views of the c hest were obtained. No prior studies are available for comparison. ?? FINDINGS: The trachea is midline. ??Ther e is no focal consolidation, pleural effusion, vascular congestion or pneumothorax. The cardiomediastinal silhouette is unremark able. ?? Procedure Note Ben Flor M.D. / Provider, Manuel dobbins M.D. - 02/18/2017 Technique: PA and lateral views of the c hest were obtained. No prior studies are available for comparison. FINDINGS: The trachea is midline. There is no focal consolidation, pleural effusion, vascular congestion or pneumothorax. The cardiomediastinal silhouette is unremark able. IMPRESSION: No radiographic evidence of acute cardio pulmonary disease. Virginia Iraheta R.T.(R)(CT), R.T.(R)(M) IMG DIAGNOSTIC IMAGING PROCEDURES documented in this encounter Visit Diagnoses Not on filedocumented in this encounter Additional Health Concerns Assessment Noted Time PHQ-9 Depression Total Score: 24 07/02/2011 4:05 PM CD T documented as of this encounter
--- OUTSIDE RECORDS SUMMARY | 2022-07-09 20:45 | XMS_ITS | Encounter Summary ---
:1990 Author Organization [facility] Address [address] [place] [address] Care Team Providers Name Role Phone Unavailable Primary Care Provider Unavailable Encounter Details Date Type Department Care Team Description 01/10/2013 Hospital Encounter HX [facility] Florentin Rosado M.D. [address] [place], [place] [phone] (Wo rk) Social [...] do you attend buddhism or Never 2020 taoism services? 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 - 01/10/2013 10:23 AM CDT [id number] CHIEF COMPLAINT/REASON FOR VISIT Followup of ER visit last evening. HISTORY OF PRESENT ILLNESS Barbra is a 22-year-old 2, para 1-0-0-1 female at 18 +6 weeks by last menstrual period consistent with 7 +5 week ultrasound who presents after an ER visit last night for bleeding after intercourse. Barbra states that she had intercourse. Barbra states that she had intercourse yesterday afternoon and denies any pain associated with it. However her partner noticed blood on his penis and she noticed reddish orange blood on the toilet paper when she wiped following intercourse. She describes this as quite light. However when she urinated and when she took a shower after this she had burning externally. Due to this she presented to the ER for further evaluation. In the ER pelvic exam was performed and there is a description of a varicosity in the superior aspect of vaginal opening that is tender to palpation. There was no blood noted in the vaginal vault. Also urinalysis was performed and showed moderate blood and 2+ bacteria and 2+ squamous epithelial cells but no leukocyte esterase or nitrites. The patient was given a prescription for an antibiotic which she has not filled yet. Today she states that she continues to have this very light bleeding when she wipes with toilet paper. She alsohas discomfort externally on the vulva when she moves. She was also recently seen by Aracely Shahfor increasing pelvic pressure and evaluation was normal at that time. She states that she has contin ued to have sharp bilateral lower abdominal pain, particularly with movement or certain activities. She denies any urinary frequency or urgency and other than this external burning she has no dysuria. She is not yet feeling her baby move. This is the first episode of bleeding that she has had and she has not had intercourse in quite some time. CURRENT MEDICATIONS 1. vitamin 1 tablet by mouth daily ALLERGIES Cats, no known drug allergies SYSTEMS REVIEW GENERAL: No fevers, chills, fatigue, unintentional weight loss or weight gain. HEENT: No changes in vision or hearing, no sore throat or nasal congestion. CARDIOVASCULAR: No chest pain, irregular heartbeat or racing heart. RESPIRATORY: No shortness of breath, cough or wheeze. GASTROINTESTINAL: Positive for nausea and abdominal pain - see HPI. No vomiting, diarrhea, constipation. GENITOURINARY: Positive for vaginal bleeding and pain with urination - see HPI. No heavy periods, painful periods, abnormal vaginal discharge, leaking urine, leaking stool or gas. SKIN: No rashes or skin lesions. BREASTS: No masses or lumps, no discharge from the nipples. NEURO: No difficulty with memory, numbness, tingling, falls. PSYCHE: No anxiety, depression, or difficulty sleeping. ENDOCRINE: No heat intolerance, cold intolerance, excessive thirst or hair loss. COMPLICATIONS OF 1. History of prior section 2. Obesity 3. Nausea and vomiting in 4. History of chlamydia with negative test of reinfection 5. History of depression with suicide attempt in 6. Urinary tract infection in 7. Rubella nonimmune 8. Vulvar trauma in . VITAL SIGNS WEIGHT 91.0 kg BLOOD PRESSURE: 94/62 TEMPERATURE 36.6 Celsius PULSE 60 PHYSICAL EXAM GENERAL: Well nourished female in no acute distress. ABDOMEN: Soft, nondistended, mild diffuse tenderness to deep palpation in the suprapubic area and bilateral lower quadrants, fundal height is 2 cm below the umbilicus and heart tones are present in the 140s by Doptone. PELVIC EXAM: External genitalia with evidence of either a linear ulcerated area just to the right ofthe urethra extending from the hymenal ring anteriorly that is approximately 1 cm long x 5 mm wide or this could also be consistent with trauma as the area is erythematous with some yellowish exudativematerial over it with fairly clean margins, the hymenal remnants anteriorly are ecchymotic and edematous mildly consistent with trauma as well. The urethral meatus itself is normal in location and appearance, without masses, no other vulvar lesions are noted, the area of the anterior hymen and the right aspect of the hymenal opening anteriorly is very tender to palpation. The speculum was inserted wit hout difficulty. The vaginal mucosa is noted to be pink and moist with a moderate amount of white discharge present, some is thick and some is thin, the cervix appears nulliparous and there are no lesions or abnormalities of the cervix noted. There is no bleeding noted from within the vagina. Vaginal pH is acidic and whiff test is negative. LOWER EXTREMITIES: Nontender, no edema. HEENT: Vision and hearing grossly intact. IMPRESSION/REPORT/PLAN 22-year-old 2, para 1-0-0-1 female at 18 +6 weeks by last menstrual period consistent with 7+5 week ultrasound with likely vulvar trauma related to intercourse who presents for followup after an ER visit for this. 1. Vulvar lesion: I believe this is likely trauma post intercourse since the patient has this linear area extending from the hymenal opening on the right to just anterior to the urethra on the right side of the urethra. There was some exudative material on this lesion which she was removed and this area was swabbed for both bacterial culture and HSV PCR. However the anterior hymenal remnants are ecchymotic and edematous consistent with trauma as well. Therefore I believe this is likely trauma related. Wet prep will also be sent due to the vaginal discharge noted and the pain described but I do notthink the symptoms are likely related to that either. The patient was counseled on sitz baths three to four times daily for 15 minutes and I will give her a prescription for lidocaine ointment to applyto the area to aid in pain control. I will contact her if any of these tests return positive. Also, I believe that the patient's dysuria is related to this lesion rather than to a urinary tract infection. Her urine last night was negative for nitrites and leukocyte esterase and contained squamous epithelial cells indicating contamination. This is also likely the source of the blood and bacteria. 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 We will send her clean-catch today for culture to confirm whether or not she has an infection. If this is positive on culture then we would treat the patient for urinary tract infection. 2. Low abdominal pain: I believe this is musculoskeletal related due to changes in including hormonal changes and stretching. The patient was counseled on this. 3. Followup: Patient has an appointment with Dr. Aponte in early January for ultrasound. She will see Dr. Aponte at that time for OB followup as well. Also, if her symptoms are not improving she needs to contact the clinic. Cooper Beltran M.D./andrews Electronically Signed By: COOPER BELTRAN MD On: 01/12/2013 05:57 PM Modified by and Electronically Signed by: COOPER BELTRAN MD On: 01/12/2013 05:57 PM Source: [facility] [email or web address] Document Id: [id number] documented in this encounter Procedure Notes Conversion, Historical Provider Ser - 01/10/2013 1:11 PM CDT Urine Dipstick Urine Dipstick Entered On: 01/10/2013 13:11 CDT Performed On: 01/10/2013 13:11 CDT by CAIN MEEK LPN Urine Dipstick UA Color POC : Jaimee UA Appear POC : Slightly Cloudy UA Protein POC : Negative UA Glucose POC : Negative CAIN MEEK LPN - 01/10/2013 13:11 CDT Source: [facility] POWERCHART Document Id: [id number] CDT!6 documented in this encounter Miscellaneous Notes Miscellaneous - Cooper Beltran M.D. - 01/13/2013 6:09 PM CDT Results Notification Document Contains Addenda Addendum by CAIN MEEK LPN on 19 January 2013 15:40:25 CDT From: CAIN MEEK LPN To: COOPER BELTRAN MD; Sent: 01/19/2013 15:40:25 CDT Show up: 01/19/2013 15:37:00 CDT Subject: RE: Results Notification patient returns call and she is given this information. she does wonder if she should be worried as she is almost 20 weeks and not felt the baby move. I did reassure her that movement may be very lightat first and to discuss her concerns with you at her appointment next week. She is aggreeable with this plan of care. Addendum by CAIN MEEK LPN on 19 January 2013 10:52:29 CDT voice message left at [phone] at 1050am Addendum by CAIN MEEK LPN on 19 January 2013 10:50:48 CDT message left information put in chart From: COOPER BELTRAN MD To: CAIN MEEK LPN; Sent: 01/13/2013 18:09:46 CDT ! Show up: 01/13/2013 23:09:46 [facility] Subject: Results Notification Actions: Note to Nurse Reminder Comments: Please add negative urine culture to chart and call the patient and let her know that she does not have a urinary tract infection. Results: Date Result Type Result Name 01/13/2013 16:40 Document - mdoc Laboratory-Scanned Source: [facility] ScribeStorm Document Id: [id number] Electronically signed by Maycol [facility] Estimator Paperboard Boxes [id number] at 02/24/2017 12:16 PM CDT Miscellaneous - Cooper Beltran M.D. - 01/10/2013 11:31 AM CDT Ambulatory Patient Summary [facility] [address] [place] [address] Visit Information Name: BARBRA GIMENEZ [facility] Number: [id number] Visit Date: 01/10/2013 11:31:12 Attending Provider: COOPER BELTRAN MD Primary Care Provider: TODD APONTE MD BARBRA GIMENEZ has been given the following list of medications: Your Medications It is important to take your medications as directed. Use a pill box or chart to help remind you to take your medications. Please let your doctor or nurse know if you have problems taking your medications. Medication/Strength Dose Route Frequency Indications/Special Instructions/Comments lidocaine topical (lidocaine 5% topical ointment) See Instructions small amount Topical to affected area 4xDay prn vulvar pain calcium-vitamin D (calcium (as carbonate)-vitamin D 600 [...] Source: [facility] POWERCHART Document Id: [id number] Miscellaneous - Cooper Beltran M.D. - 01/10/2013 11:31 AM CDT [place] [address] Visit Information Name: BARBRA GIMENEZ [facility] Number: [id number] Visit Date: 01/10/2013 11:31:12 Attending Provider: COOPER BELTRAN MD Primary Care Provider: TODD APONTE MD BARBRA GIMENEZ has been given the following list of medications: Your Medications It is important to take your medications as directed. Use a pill box or chart to help remind you to take your medications. Please let your doctor or nurse know if you have problems taking your medications. 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 Tester Intake/History Adult Soil Tester Intake/History Entered On: 01/10/2013 10:34 CDT Performed On: 01/10/2013 10:30 CDT by CAIN MEEK LPN Intake Chief Complaint : ER with bleeding was told it was a vein dizzy nausea Temperature Core : 36.6 DegC(Converted to: 97.9 DegF) Peripheral Pulse Rate : 60 /min Systolic Blood Pressure : 94 mmHg Diastolic Blood Pressure : 62 mmHg NIBP Mean : 73 mmHg Actual Weight : 91 kg(Converted to: 200 lb 10 oz) Dosing Weight Clinic : 91 kg CAIN MEEK LPN - 01/10/2013 10:30 CDT General Info Information Given By : Patient Languages : Arabic CAIN MEEK LPN - 01/10/2013 10:30 CDT Subjective Pain Symptoms : Yes CAIN MEEK LPN - 01/10/2013 10:30 CDT Pain Pain Assessment Grid Pain 1 Location : Abdomen CAIN MEEK LPN - 01/10/2013 10:30 CDT Dependent Habits Tobacco Use/Currently Using : No Exposure to Tobacco Smoke : Lives with someone who smokes, Other: none Smoking Status : Never smoker CAIN MEEK LPN - 01/10/2013 10:30 CDT Caffeine Use Grid Caffeine Use : Current Type : Coffee Frequency : Daily CAIN MEEK LPN - 01/10/2013 10:30 CDT [facility] Document Id: [id number] CDT!28 documented in this encounter Plan of Treatment Not on filedocumented as of this encounter Procedures Procedure Name Priority Date/Time Associated Comments Diagnosis HX UA GLUCOSE POC Routine 01/10/2013 1:11 PM Resu lts for this CDT procedure are i n the results section. HX UA GLUCOSE POC Routine 01/10/2013 1:11 PM Resu lts for this CDT procedure are i n the results section. HX UA APPEAR POC Routine 01/10/2013 1:11 PM Resul ts for this CDT procedure are i n the results section. HX UA APPEAR POC Routine 01/10/2013 1:11 PM Resul ts for this CDT procedure are i n the results section. DIPSTICK, POCT, U Routine 01/10/2013 1:11 PM Resu lts for this (DIPC1) CDT procedure are i n the results section. DIPSTICK, POCT, U Routine 01/10/2013 1:11 PM Resu lts for this (DIPC1) CDT procedure are i n the results section. DIPSTICK, POCT, U Routine 01/10/2013 1:11 PM Resu lts for this (DIPC1) CDT procedure are i n the results section. DIPSTICK, POCT, U Routine 01/10/2013 1:11 PM Resu lts for this (DIPC1) CDT procedure are i n the results section. AERO BACT RSLT Routine 01/10/2013 11:17 AM Result s for this CDT procedure are i n the results section. HERPES SIMPLEX VIRUS Routine 01/10/2013 11:17 AM Results for this PCR CDT procedure are i n the results section. WET PREP EXAM, Routine 01/10/2013 11:17 AM Result s for this UROGENITAL CDT procedure are i n the results section. BACTERIAL CULTURE, Routine 01/10/2013 11:17 AM Re sults for this AEROBIC, URINE CDT procedure are in the results section. documented in this encounter Results HX UA GLUCOSE POC (01/10/2013 1:11 PM CDT) P athologist Signature Glucose, POCT, Negative POWERCHART U Specimen (Source) Anatomical Collection Method Collection Time Re ceived Time Location / / Volume Laterality 01/10/2013 1:11 PM CDT Historical Provider LAB HISTORICAL ORDERS Performing Organization Address City/State/ZIP Code Phon e Number POWERCHART Dipstick, POCT, Urine (lab) (01/10/2013 1:11 PM CDT) P athologist Signature Protein, POCT, Negative POWERCHART U Specimen (Source) Anatomical Collection Method Collection Time Re ceived Time Location / / Volume Laterality 01/10/2013 1:11 PM CDT Historical Provider LAB POCT ORDERABLES - DEVICE Performing Organization Address City/[facility]/ZIP Code Phon e Number POWERCHART HX UA APPEAR POC (01/10/2013 1:11 PM CDT) Analysis Performed At Patho logist Time Signature Appearance Slightly POWERCHART Cloudy Specimen (Source) Anatomical Collection Method Collection Time Re ceived Time Location / / Volume Laterality 01/10/2013 1:11 PM CDT Historical Provider LAB HISTORICAL ORDERS Performing Organization Address City/[facility]/ZIP Code Phon e Number POWERCHART Dipstick, POCT, Urine (lab) (01/10/2013 1:11 PM CDT) P athologist Signature Color Jaimee POWERCHART Specimen (Source) Anatomical Collection Method Collection Time Re ceived Time Location / / Volume Laterality 01/10/2013 1:11 PM CDT Historical Provider LAB POCT ORDERABLES - DEVICE Performing Organization Address [facility] Phon e Number POWERCHART HX UA GLUCOSE POC (01/10/2013 1:11 PM CDT) P athologist Signature Glucose, POCT, Negative POWERCHART U Specimen (Source) Anatomical Collection Method Collection Time Re ceived Time Location / / Volume Laterality 01/10/2013 1:11 PM CDT Historical Provider LAB HISTORICAL ORDERS Performing Organization Address [facility]/ZIP Code Phon e Number POWERCHART Dipstick, POCT, Urine (lab) (01/10/2013 1:11 PM CDT) P athologist Signature Protein, POCT, Negative POWERCHART U Specimen (Source) Anatomical Collection Method Collection Time Re ceived Time Location / / Volume Laterality 01/10/2013 1:11 PM CDT Historical Provider LAB POCT ORDERABLES - DEVICE Performing Organization Address City/[facility]/ZIP Code Phon e Number POWERCHART HX UA APPEAR POC (01/10/2013 1:11 PM CDT) Analysis Performed At Patho logist Time Signature Appearance Slightly POWERCHART Cloudy Specimen (Source) Anatomical Collection Method Collection Time Re ceived Time Location / / Volume Laterality 01/10/2013 1:11 PM CDT Historical Provider LAB HISTORICAL ORDERS Performing Organization Address City/[facility]/ZIP Code Phon e Number POWERCHART Dipstick, POCT, Urine (lab) (01/10/2013 1:11 PM CDT) P athologist Signature Color Jaimee POWERCHART Specimen (Source) Anatomical Collection Method Collection Time Re ceived Time Location / / Volume Laterality 01/10/2013 1:11 PM CDT Historical Provider LAB POCT ORDERABLES - DEVICE Performing Organization Address City/State/ZIP Code Phon e Number POWERCHART HX-Aero Bact Rslt (01/10/2013 11:17 AM CDT) Patholo gist Method Time Signature HXAero Bact See Comment POWERCHART Rslt-[place] Specimen (Source) Anatomical Collection Method Collection Time Re ceived Time Location / / Volume Laterality 01/10/2013 11:17 AM CDT Narrative POWERCHART - 01/13/2013 12:49 PM CDT SOURCE: VULVA, vulvar lesion BACTERIAL CULTURE, AEROBIC ? FINAL Usual say Test Performed by: [facility] [place] [place] [address] Associate Trainer: Humberto anna III, M.D. Cooper Beltran M.D. LAB HISTORICAL ORDERS Performing Organization Address City/[facility]/ZIP [facility] Phon e Number POWERCHART Herpes Simplex Virus PCR (01/10/2013 11:17 AM CDT) [facility] gist Method Time Signature HXHSV PCR vulvar POWERCHART Src-Gerardo lesion HX HSV PCR Negative Not POWERCHART Rslt-[place] applicable Comment: Analyte Specific Reagent: This test was developed and its performance characteristics determined b y [facility]. It has not been cleared or approved by the U.S. Food and Drug Administration. Test Performed by: [facility] [place] [address] Associate Trainer: Humberto anna III, M.D. Specimen (Source) Anatomical Collection Method Collection Time Re ceived Time Location / / Volume Laterality Gerardo Review 01/10/2013 11:17 AM CDT Cooper Beltran M.D. LAB MICROBIOLOGY - GENERAL O RDERABLES Performing Organization Address City/State/ZIP Code Phon e Number POWERCHART Wet Prep Exam, Urogenital (01/10/2013 11:17 AM CDT) P athologist Signature HXWet Prep POWERCHART HXFinal No yeast, POWERCHART Trichomonas , clue cells, or sperm seen. Specimen (Source) Anatomical Collection Method Collection Time Re ceived Time Location / / Volume Laterality Vagina 01/10/2013 11:17 AM CDT Cooper Beltran M.D. LAB MICROBIOLOGY - GENERAL O RDERABLES Performing Organization Address City/State/ZIP Code Phon e Number POWERCHART Bacterial Culture, Aerobic, Urine (01/10/2013 11:17 AM CDT) [facility] gist Method Time Signature Bacterial POWERCHART Culture, Aerobic, Urine HXFinal See POWERCHART scanned/paper report. Test performed at [facility]. Specimen (Source) Anatomical Collection Method Collection Time Re ceived Time Location / / Volume Laterality Urine, Clean 01/10/2013 11:17 Catch AM CDT Cooper Beltran M.D. LAB MICROBIOLOGY - GENERAL O MALOU Performing Organization Address City/State/ZIP Code Phon e Number POWERCHART documented in this encounter Visit Diagnoses Not on filedocumented in this encounter Additional Health Concerns Assessment Noted Time PHQ-9 Depression Total Score: 1 11/16/2012 11:45 AM CS T documented as of this encounter
--- OUTSIDE RECORDS SUMMARY | 2022-07-09 20:45 | XMS_ITS | Encounter Summary ---
:1990 Author Organization [facility] Address [address] [place] [address] Care Team Providers Name Role Phone Unavailable Primary Care Provider Unavailable Encounter Details Date Type Department Care Team Description 07/01/2012 Hospital Encounter HX [facility] Isaias Weinberg M.D. [address] [place] [address] Social History Tobacco Use Types [...] do you attend amish or Never 2020 yazidism services? Do you [...] Taken Comments Blood Pressure - - Pulse 74 07/01/2012 1:18 PM CDT Temperature - - Respiratory Rate 18 07/01/2012 1:18 PM CDT Oxygen Saturation - - Inhaled Oxygen Concentration - - Weight 92.4 kg (203 lb 11.3 oz) 07/01/2012 1:18 PM CDT Height - - Body Mass Index 41.62 05/20/2012 2:58 PM CDT documented in this encounter Progress Notes Iain Lentz M.D. - 07/01/2012 12:57 PM CDT EC DATE: 07/01/2012 HISTORY OF PRESENT ILLNESS Barbra is a pleasant 21-year-old white female who presents today primarily because of ear pain but more importantly some plugging in the right ear that has been present for the past 2 days. She denies any fever. CURRENT MEDICATIONS 1. control pills. 2. Sertraline 25 mg daily. ALLERGIES CATS. VITAL SIGNS Blood pressure not obtained. Pulse 74, respirations 18, temperature 37, weight 92.4 kg. PHYSICAL EXAMINATION ENT: Oropharynx +/- red. TMS: Left appears to be normal. The right is obviously abnormal with loss of landmarks and inflammation and some signs of separation. NECK: No significant adenopathy. IMPRESSION/REPORT/PLAN Right acute otitis media. Amoxicillin 500 mg t.i.d. for 10 days. Decongestant p.r.n., Tylenol or Advil p.r.n. discomfort. JWD:gc Doc#: [id number] cc: Electronically Signed By: IAIN LENTZ MD On: 07/04/2012 04:19 PM Source: [facility] ISJDICTAPHONESYS Document Id: [id number] documented in this encounter Miscellaneous Notes Miscellaneous - Iain Lentz M.D. - 07/01/2012 1:26 PM CDT Ambulatory Patient Summary [address] [id number] Visit Information Name: BARBRA GIMENEZ Current Date: 07/01/2012 13:26:33 Physicians Attending Provider: IAIN LENTZ MD Primary Care Provider: GINNY MALDONADO MD Your Medications Here is a list of your medications. It is important to take your medications as directed. Use a pillbox or chart to help remind you to take your medications. Please let your doctor or nurse know if you have problems taking your medications. Medication/Strength Dose Route Frequency Indications/Special Instructions/Comments amoxicillin (amoxicillin 500 mg oral capsule) 500 mg Oral three times a day for 10 Days sertraline (Zoloft 25 mg oral tablet) 25 [...] No Appointments found Your Goals/Additional instructions: Source: [facility] POWERCHART Document Id: [id number] Miscellaneous - Iain Lentz M.D. - 07/01/2012 1:26 PM CDT Ambulatory Depart Summary [address] [address] Visit Information Name: BARBRA GIMENEZ Visit Date: 07/01/2012 13:26:32 Attending Provider: IAIN LENTZ MD Primary Care Provider: GINNY MALDONADO MD BARBRA GIMENEZ has been given the following list of medications: Your Medications It is important to take your medications as directed. Use a pill box or chart to help remind you to take your medications. Please let your doctor or nurse know if you have problems taking your medications. Medication/Strength Dose Route Frequency Indications/Special Instructions/Comments amoxicillin (amoxicillin 500 mg oral capsule) 500 mg Oral three times a day for 10 Days sertraline (Zoloft 25 mg oral tablet) 25 mg Oral once a day ethinyl estradiol-norgestimate (Ortho Cyclen) 1 tab Oral once a day Attention: If you have any medications at home that are not on this list, DO NOT take them until youcontact your provider for clarification. Additional Information: Source: [facility] POWERCHART Document Id: [id number] Miscellaneous - Conversion, Historical Provider Ser - 07/01/2012 1:18 PM CDT Adult Political Researcher Intake/History Adult Political Researcher Intake/History Entered On: 07/01/2012 13:22 CDT Performed On: 07/01/2012 13:18 CDT by CHEYANNE BRYAN LPN Intake Chief Complaint : ear pain Onset of Symptoms : few days Ambulatory Intake Additional Information : hears abeep' in right ear Temperature Core : 37C(Converted to: 98.6DegF) Peripheral Pulse Rate : 74/min Respiratory Rate : 18/min Heart Rhythm : Regular Systolic Blood Pressure : 70mmHg (<LLOW) BP Location : Right upper extremity Blood Pressure Cuff Size : Regular Actual Weight : 92.4kg(Converted to: 203lb 11oz) Weight Source : Standing scale Dosing Weight Clinic : 92.40kg CHEYANNE BRYAN LPN - 07/01/2012 13:18 CDT Subjective Pain Symptoms : Yes CHEYANNE BRYAN LPN - 07/01/2012 13:18 CDT Pain Pain Assessment Grid Pain 1 Location : Ear Laterality : Bilateral CHEYANNE BRYAN LPN - 07/01/2012 13:18 CDT Dependent Habits Tobacco Use/Currently Using : No Exposure to Tobacco Smoke : Lives with someone who smokes Smoking Status : Never smoker CHEYANNE BRYAN LPN - 07/01/2012 13:18 CDT Caffeine Use Grid Caffeine Use : Current Type : Coffee Frequency : Daily CHEYANNE BRYAN LPN - 07/01/2012 13:18 CDT Allergy Allergies (Active) Cats Estimated Onset Date: Unspecified ; Comment: has allergy to cats ; Created By: CLIVE MACKAY LPN; Reaction Status: Active ; Category: Other ; Substance: Cats ; Type: Allergy ; Updated By: RAYMOND MACKAY LPN; Reviewed Date: 07/01/2012 13:17 CDT Source: [facility] POWERCHART Document Id: [id number] documented in this encounter Plan of Treatment Not on filedocumented as of this encounter Visit Diagnoses Not on filedocumented in this encounter Additional Health Concerns Assessment Noted Time PHQ-9 Depression Total Score: 24 07/02/2011 4:05 PM CD T documented as of this encounter
--- OUTSIDE RECORDS SUMMARY | 2022-07-09 20:45 | XMS_ITS | Encounter Summary ---
:1990 Author Organization [facility] Address [address] [place] [address] Care Team Providers Name Role Phone Unavailable Primary Care Provider Unavailable Encounter Details Date Type Department Care Team Description 01/25/2013 Hospital Encounter HX [facility] Todd Dinero [...] do you attend baptist or Never 2020 jainism services? Do you [...] Sign Reading Time Taken Comments Blood Pressure 120/58 01/25/2013 9:55 AM CDT Pulse - - Temperature - - Respiratory Rate - - Oxygen Saturation - - Inhaled Oxygen Concentration - - Weight 92.8 kg (204 lb 9.4 oz) 01/25/2013 9:55 AM CDT Height - - Body Mass Index 41.8 11/23/2012 1:32 PM SAS ANALYST documented in this encounter Progress Notes Todd Aponte M.D. - 01/25/2013 9:51 AM CDT [id number] CHIEF COMPLAINT/REASON FOR VISIT Routine OB visit. HISTORY OF PRESENT ILLNESS This patient is a 22-year-old G2, P1-0-0-1 female with LMP of 08/31/2012 with EDC 06/07/2013 at 21-0/7 weeks. Patient presents for OB visit and OB ultrasound for survey. She is doing well. She reports some movement but it is very irregular. She denies leaking of fluid or vaginal bleeding. No cramping or contractions. No pelvic pressure. She denies any further pelvic pain or discomfort. Novaginal itching, irritation or discharge. No difficulty urinating. CURRENT MEDICATIONS Generic vitamins. ALLERGIES No known drug allergies. PAST MEDICAL/SURGICAL HISTORY 1. History of GERD, currently asymptomatic. 2. History of depression, currently asymptomatic. 3. History of overdose and suicide attempt, currently asymptomatic. PAST SURGICAL HISTORY section, 2009. PROCEDURE Obstetrical ultrasound performed revealing a single intrauterine gestation, cephalic presentation. Placenta is located anteriorly. No placenta previa. Amniotic fluid level is normal. Gender is not visualized due to positioning. Three-vessel cord is seen and it appears normal. Lateral ventricle atrium and cerebellum are seen and appear normal. Cervical, thoracic, lumbar and sacral spine are seenand appear normal. Stomach cord insertion, bladder, kidneys are seen and appear normal. Right and left upper and lower extremities, including hands and feet are seen and appear normal. Nose and lips are seen and appear normal. Cardiac activity is seen. Four chamber heart is seen. heart rate is measured at 150 beats per minute. No gross anomalies are visualized. Patient is aware this is not a comprehensive screen for congenital anomalies. The patient is aware that we were unable to see the sex of the due to positioning. VITAL SIGNS WEIGHT: 92.8 kg. BLOOD PRESSURE: 120/58. PULSE: 68 HEIGHT: 149 cm. PHYSICAL EXAM GENERAL: Well-developed, well-nourished gravid female in no apparent distress. Alert and oriented times 3. Normal affect. ABDOMEN: Gravid, soft and nontender. Fundal height is 21 cm. Positive heart tones 150 beats per minute. EXTREMITIES: No edema or tenderness. GENITALIA: Genital exam deferred. LABS: 11/23/2012, chlamydia negative, gonorrhea negative. LABS: 01/10/2013, HSV culture negative. IMPRESSION/REPORT/PLAN 1. Intrauterine at 21-0/7 weeks. Positive cardiac activity. 2. History of prior section. 3. History of chlamydia in 10/05/2012, treated. 4. Rubella nonimmune status. 5. Obesity. 6. History of depression and suicide attempt, currently asymptomatic. PLAN 1. OB ultrasound results are reviewed with the patient with normal findings. 2. I recommend the patient followup in 3 to 4 weeks for OB visit or be seen sooner as needed. 3. Routine OB precautions, recommendations and instructions are reviewed with the patient, includingfetal movement and kick counts. 4. Depression precautions in are reviewed with the patient. 5. I recommended elective repeat section at term. Todd Aponte M.D./ryan Electronically Signed By: TODD APONTE MD On: 01/25/2013 02:15 PM Source: [facility] MHSDOLBEYNONRADSYS Document Id: [id number] documented in this encounter Miscellaneous Notes Miscellaneous - Todd Aponte M.D. - 01/25/2013 10:23 AM CDT Ambulatory Patient Summary [facility] [address] [place] [id number] Visit Information Name: BARBRA GIMENEZ [facility] Number: [id number] Current Date: 01/25/2013 10:23:27 Physicians Attending Provider: TODD APONTE MD Primary [...] Upcoming Appointments Date Time Location Reason Provider 02/15/2013 08:00 [facility] DIRECT MAIL CLERK ob Todd Aponte MD Your Goals/Additional instructions: Source: [facility] POWERCHART Document Id: [id number] Miscellaneous - Todd Aponte M.D. - 01/25/2013 10:23 AM CDT Ambulatory Depart Summary [address] [address] Visit Information Name: BARBRA GIMENEZ [facility] Number: [id number] Visit Date: 01/25/2013 10:23:27 Attending Provider: TODD APONTE MD Primary Care [...] your provider for clarification. Additional Information: Source: [facility] [employer] Document Id: [id number] Miscellaneous - Nori Hong LWanderP.N. - 01/25/2013 9:55 AM CDT Adult Fisher Hoop Net Intake/History Adult Fisher Hoop Net Intake/History Entered On: 01/25/2013 9:56 CDT Performed On: 01/25/2013 9:55 CDT by NORI HONG Intake Chief Complaint : OB visit US 21 weeks LMP Date : 08/31/2012 Systolic Blood Pressure : 120 mmHg Diastolic Blood Pressure : 58 mmHg NIBP Mean : 79 mmHg BP Location : Right upper extremity Blood Pressure Cuff Size : Regular Actual Weight : 92.8 kg(Converted to: 204 lb 9 oz) Weight Source : Standing scale Dosing Weight Clinic : 92.8 kg NORI HONG - 01/25/2013 9:55 CDT General Info Languages : Iranian NORI HONG - 01/25/2013 9:55 CDT Subjective Pain Symptoms : No NORI HONG - 01/25/2013 9:55 CDT Dependent Habits Tobacco Use/Currently Using : No Exposure to Tobacco Smoke : Lives with someone who smokes, Other: none Smoking Status : Never smoker NORI HONG - 01/25/2013 9:55 CDT Caffeine Use Grid Caffeine Use : Current Type : Coffee Frequency : Daily NORI HONG - 01/25/2013 9:55 CDT [facility] Document Id: [id number] CDT!25 documented in this encounter Plan of Treatment Not on filedocumented as of this encounter Visit Diagnoses Not on filedocumented in this encounter Additional Health Concerns Assessment Noted Time PHQ-9 Depression Total Score: 1 11/16/2012 11:45 AM CS T documented as of this encounter
--- OUTSIDE RECORDS SUMMARY | 2022-07-09 20:45 | XMS_ITS | Encounter Summary ---
:1990 Author Organization [facility] Address [address] [place] [address] Care Team Providers Name Role Phone Unavailable Primary Care Provider Unavailable Encounter Details Date Type Department Care Team Description 06/18/2011 Hospital Encounter [facility] Wade Carrasquillo, P.A. -C. [address] [place] [address] (Wo rk) Social History Tobacco Use Types [...] do you attend hindu or Never 2020 congregational services? Do you [...] documented as of this encounter Progress Notes Wade Carrasquillo - 06/18/2011 12:00 AM CDT [id number] CHIEF COMPLAINT / REASON FOR VISIT Left breast pain. HISTORY OF PRESENT ILLNESS The patient states that since Wednesday she has had pain in the left breast. She states that she has not been . She did not notice any discharge from the breast. She has had some mild cough on and off as well, but without any significant complications. She denied any fever. However, she did say she is having some mild chills and sweats. Denied any vomiting. Denied any abdominal pain. Denied any diarrhea. Denied any back pain. The patient states she was worked up in the [facility] for chest pain. She states that they did an EKG and gave her a shot for pain. She states that a cardiac workup was negative. She denied any trauma to the breast. She denied any trauma to the chest either. She did notice that there is a little bit of swelling at the base of the left breast. CURRENT MEDICATIONS Reviewed and no changes per EMR. ALLERGIES Reviewed and no changes per EMR. VITALS SIGNS Reviewed and no changes per EMR. PHYSICAL EXAM GENERAL: This is a pleasant 20-year-old female in no apparent distress. She appears to be fairly comfortable and cooperative. She is alert and awake and responds appropriately to auditory and visual stimuli. LUNGS: Clear to auscultation. No wheezes, rales or rhonchi. BREASTS: Left breast is a little swain than the right one. I did appreciate some clear nipple discharge from the left breast; none on the right side. There appears to be mild to moderate tenderness at the base of the left breast. It does appear to be slightly warm to touch as well. No rash that I could appreciate. ABDOMEN: Soft and nontender. IMPRESSION / REPORT / PLAN 1) Possible mastitis. We are going to start the patient today on Keflex 500 mg 4 times daily for 10 days. I did recommend heat and ibuprofen. Also encouraged her to followup with a primary care provider in the next couple of days if there is no progressive improvement. She is comfortable with this plan. deion Alonso Justin Electronically Signed By: WADE CARRASQUILLO On: 06/23/2011 08:29 AM Source: [facility] MHSDOLBEYNONRADSYS Document Id: [id number] documented in this encounter Miscellaneous Notes Miscellaneous - Castillo Bobby L.P.N. - 06/18/2011 8:46 PM CDT School or Work Excuse School or Work Excuse Entered On: 06/18/2011 20:47 CDT Performed On: 06/18/2011 20:46 CDT by CASTILLO BOBBY School or Work Excuse Date Patient Seen: 06/18/2011 CDT School or Work Restrictions: No Restrictions Date of Return to School/Work Without Restrictions: 06/18/2011 CDT CASTILLO BOBBY - 06/18/2011 20:46 CDT Source: [employer] Document Id: [id number] CDT!5 Miscellaneous - Conversion, Historical Provider Ser - 06/18/2011 1:21 PM CDT Adult Billing Control Clerk Intake/History Adult Billing Control Clerk Intake/History Entered On: 06/18/2011 13:26 CDT Performed On: 06/18/2011 13:21 CDT by SANDRO VELEZ Intake Chief Complaint: L sided chest /breast pain- was seen in ER last night- was told pain was r/t lifting motion at work- pt states found small round lump in L breast today- c/o fever last night- has had SOB, WARNER, nausea along with this over last few days Temperature Oral: 36.9C(Converted to: 98.4DegF) Peripheral Pulse Rate: 80/min Respiratory Rate: 12/min (LOW) Systolic Blood Pressure: 110mmHg Diastolic Blood Pressure: 74mmHg NIBP Mean: 86mmHg BP Location: Right upper extremity Heart Rhythm: Regular Actual Weight: 90.100kg(Converted to: 198lb 10oz) Dosing Weight Clinic: 90.10kg SANDRO VELEZ - 06/18/2011 13:21 CDT General Info Information Given By: Patient Preferred Communication Mode: Verbal Languages: Faroese SANDRO VELEZ - 06/18/2011 13:21 CDT Subjective Pain Symptoms: No SANDRO VELEZ - 06/18/2011 13:21 CDT Dependent Habits Tobacco Use/Currently Using: No Exposure to Tobacco Smoke: Lives with someone who smokes SANDRO VELEZ S - 06/18/2011 13:21 CDT Caffeine Use Grid Caffeine Use: Current Type: Coffee Frequency: Daily SANDRO VELEZ S - 06/18/2011 13:21 CDT Allergy Allergies (Active) Cats Estimated Onset Date: Unspecified ; Comment: has allergy to cats ; Created By: CLIVE MACKAY LPN; Reaction Status: Active ; Category: Other ; Substance: Cats ; Type: Allergy ; Updated By: RAYMOND MACKAY LPN; Reviewed Date: 06/18/2011 13:19 CDT [facility] Document Id: [id number] CDT!27 documented in this encounter Plan of Treatment Not on filedocumented as of this encounter Visit Diagnoses Not on filedocumented in this encounter
--- OUTSIDE RECORDS SUMMARY | 2022-07-09 20:45 | XMS_ITS | Encounter Summary ---
:1990 Author Organization [facility] Address [address] [place] [address] Care Team Providers Name Role Phone Unavailable Primary Care Provider Unavailable Encounter Details Date Type Department Care Team Description 05/28/2011 [facility] Elias kamlesh L, MATCHBOOK MAKER, C.N.P., [address] [facility] [place] [address] (Wo rk) Social History Tobacco [...] do you attend christianity or Never 2020 zoroastrian services? Do you [...] documented as of this encounter Progress Notes Conversion, Historical Provider Ser - 05/28/2011 6:52 PM CDT EC DATE OF SERVICE: 05/28/2011 REASON FOR VISIT Missed period for two months. HISTORY OF PRESENT ILLNESS Patient presents into urgent care requesting a test. 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 She denies any muscle cramping or syncopal episodes. She states this is similar abdominal pain that she had when she was the last time. She is currently G1, P1. MEDICATIONS No medications other than control pills. ALLERGIES No allergies. EXAMINATION VITALS: Contained in nurses notes and have been reviewed. GENERAL: Patient is awake, alert and oriented. She declined any other examination at this time. DIAGNOSTIC DATA Urinalysis: For is negative. IMPRESSION/REPORT/PLAN Amenorrhea times two months. I offered to work the patient up further via urinalysis and other assessments. Patient declined. Shestates she will see Dr. Walsh at her next possible available appointment and will call tomorrowmorning to set that up. I advised her to continue with her control until proven otherwise. LOURDES:viola Doc#: [id number] cc: Electronically Signed By: VIJAY MORALES PA-C On: 12/21/2015 10:41 AM Co-Signed By: VIJAY MORALES PA-C On: 12/21/2015 10:41 AM Co-Signed By: BRUCE FIELD Electronically Signed by Proxy by: BRUCE FIELD Source: [facility] ISJDICTAPHONESYS Document Id: [id number] documented in this encounter Miscellaneous Notes Miscellaneous - Vijay Morales P.A.-C. - 05/28/2011 7:18 PM CDT Ambulatory Patient Summary [address] [address] Visit Information Name: NORAH GIMENEZ Current Date: 05/28/2011 19:18:53 Primary Care Provider: GINNY MALDONADO MD Your [...] 05/09/2010 05/09/2011 Depression: PHQ-9 every 6 months 05/28/2011 Vaccine: Tetanus every 10 years 05/14/2004 05/12/2014 Immunization to help prevent you from getting the serious disease Tetanus (Lockjaw). Your Upcoming Appointments Date Time Location Reason Provider No Appointments found Your Goals/Additional instructions: Source: [facility] POWERCHART Document Id: [id number] Electronically signed by Maycol [facility] Psychology Teacher [id number] at 02/28/2017 2:08 PM CDT Miscellaneous - Vijay Morales P.A.-C. - 05/28/2011 7:18 PM CDT Ambulatory Depart Summary [place] - [address] [address] Visit Information Name: NORAH GIMENEZ Current Date: 05/28/2011 19:18:53 Primary Care Provider: GINNY MALDONADO MD NORAH GIMENEZLE has been given the [...] Oral once a day Additional Information: Source: [facility] [employer] Document Id: [id number] Electronically signed by Maycol [facility] Psychology Teacher [id number] at 02/28/2017 2:08 PM CDT Miscellaneous - Sera Guerrero L.P.N. - 05/28/2011 6:57 PM CDT Adult Porcelain Technician Intake/History Adult Porcelain Technician Intake/History Entered On: 05/28/2011 19:00 CDT Performed On: 05/28/2011 18:57 CDT by SERA GUERRERO LPN Intake Chief Complaint: Hasn't had period for 2 months. Has not missed BCP. Feeling dizzy nauseated not eating. Temperature Core: 36.6C(Converted to: 97.9DegF) Peripheral Pulse Rate: 80/min Respiratory Rate: 16/min Systolic Blood Pressure: 120mmHg Diastolic Blood Pressure: 70mmHg NIBP Mean: 87mmHg BP Location: Right upper extremity SERA GUERRERO LPN - 05/28/2011 18:57 CDT Subjective Pain Symptoms: No SERA GUERRERO LPN - 05/28/2011 18:57 CDT Dependent Habits Tobacco Use/Currently Using: No Exposure to Tobacco Smoke: Lives with someone who smokes SERA GUERRERO LPN - 05/28/2011 18:57 CDT Caffeine Use Grid Caffeine Use: Current Type: Coffee Frequency: Daily SERA GUERRERO LPN - 05/28/2011 18:57 CDT Allergy Allergies (Active) Cats Estimated Onset Date: Unspecified ; Comment: has allergy to cats ; Created By: CLIVE MACKAY LPN; Reaction Status: Active ; Category: Other ; Substance: Cats ; Type: Allergy ; Updated By: RAYMOND MACKAY LPN; Reviewed Date: 05/28/2011 18:56 CDT Source: [facility] POWERCHART Document Id: [id number] CDT!20 documented in this encounter Plan of Treatment Not on filedocumented as of this encounter Visit Diagnoses Not on filedocumented in this encounter
--- OUTSIDE RECORDS SUMMARY | 2022-07-09 20:45 | XMS_ITS | Encounter Summary ---
:1990 Author Organization [facility] Address [address] [place] [address] Care Team Providers Name Role Phone Unavailable Primary Care Provider Unavailable Encounter Details Date Type Department Care Team Description 11/08/2012 Hospital Encounter HX [facility] Todd Dinero [...] do you attend rastafarian or Never 2020 judaism services? Do you belong to any clubs [...] Sign Reading Time Taken Comments Blood Pressure 126/70 11/08/2012 1:40 PM HEALTH INFORMATION ADMINISTRATOR Pulse - - Temperature - - Respiratory Rate - - Oxygen Saturation - - Inhaled Oxygen Concentration - - Weight 89.2 kg (196 lb 10.4 oz) 11/08/2012 1:40 PM HEALTH INFORMATION ADMINISTRATOR Height - - Body Mass Index 40.18 05/20/2012 2:58 PM CDT documented in this encounter Procedure Notes Conversion, Historical Provider Ser - 11/08/2012 1:54 PM CST Urine Dipstick Urine Dipstick Entered On: 11/08/2012 13:55 HEALTH INFORMATION ADMINISTRATOR Performed On: 11/08/2012 13:54 HEALTH INFORMATION ADMINISTRATOR by MELITA GALLARDO Urine Dipstick UA Color POC : Yellow UA Appear POC : Clear UA Leuk POC : Trace UA Nitrite POC : Negative UA Urobilinogen POC : 0.2 mg/dl UA Protein POC : Negative UA pH POC : 5.5 UA Blood POC : 2+ MODERATE UA Spec Grav POC : 1.015 UA Ketones POC : Negative UA Bili POC : Negative UA Glucose POC : Negative MELITA GALLARDO - 11/08/2012 13:54 HEALTH INFORMATION ADMINISTRATOR Source: Food and Beverage Document Id: [id number] documented in this encounter Miscellaneous Notes Miscellaneous - Donna Salgado, LWanderPJoshua - 11/10/2012 11:23 AM CST PHQ-9 DUE From: DONNA SALGADO LPN To: ALDEN DE LA GARZA; Sent: 11/10/2012 11:23:44 HEALTH INFORMATION ADMINISTRATOR Show up: 11/10/2012 11:23:00 HEALTH INFORMATION ADMINISTRATOR Subject: PHQ-9 DUE Please Remember to: Patient is due for PHQ-9 now. This can be a office visit or done over the phone.If done over the phone and patient scores 9 or greater please advise patient to follow-up with provider. Please call patient and advise. PATIENT: ( ) Call Patient ( ) Ask Patient to ( ) ( ) Call Relative ( ) Schedule Patient ( ) ( ) Call for Plastic Panel Installer ( ) Follow up on Results ( ) Other: PROVIDER: ( ) Call Physician ( ) Call Pharmacist ( ) Call Lab ( ) Other: Special Instructions: Comments: Source: [facility] POWERCHART Document Id: [id number] Electronically signed by [facility] Automatic Winder Operator [id number] at 02/24/2017 8:57 PM CDT Miscellaneous - Aracely Shah APRN, C.N.P. - 11/08/2012 2:19 PM HEALTH INFORMATION ADMINISTRATOR Ambulatory Patient Summary [address] [address] Visit Information Name: NORAH GIMENEZ [facility] Number: [id number] Current Date: 11/08/2012 14:19:24 Physicians Attending Provider: TODD MCBRIDE MD Primary Care Provider: TODD MCBRIDE MD Your Medications Here is a list of your medications. It is important to take your medications as directed. Use a pillbox or chart to help remind you to take your medications. Please let your doctor or nurse know if you have problems taking your medications. Medication/Strength Dose Route Frequency Indications/Special Instructions/Comments nitrofurantoin (Macrobid 100 mg oral capsule) 100 mg Oral two times a day for 7 Days ondansetron (Zofran 4 mg oral tablet) 4 [...] No Appointments found Your Goals/Additional instructions: Source: [facility] POWERCHART Document Id: [id number] TH INFORMATION ADMINISTRATOR Miscellaneous - Aracely Shah APRN, C.N.P. - 11/08/2012 2:19 PM HEALTH INFORMATION ADMINISTRATOR Ambulatory Depart Summary [address] [address] Visit Information Name: NORAH GIMENEZ [facility] Number: [id number] Visit Date: 11/08/2012 14:19:23 Attending Provider: TODD MCBRIDE MD Primary Care Provider: TODD MCBRIDE MD NORAH GIMENEZ has been given the following list of medications: Your Medications It is important to take your medications as directed. Use a pill box or chart to help remind you to take your medications. Please let your doctor or nurse know if you have problems taking your medications. Medication/Strength Dose Route Frequency Indications/Special Instructions/Comments nitrofurantoin (Macrobid 100 mg oral capsule) 100 mg Oral two times a day for 7 Days ondansetron (Zofran 4 mg oral tablet) 4 [...] your provider for clarification. Additional Information: Source: [facility] POWERCHART Document Id: [id number] TH INFORMATION ADMINISTRATOR Miscellaneous - Conversion, Historical Provider Ser - 11/08/2012 1:40 PM HEALTH INFORMATION ADMINISTRATOR Adult Coupon Collection Clerk Intake/History Adult Coupon Collection Clerk Intake/History Entered On: 11/08/2012 13:41 HEALTH INFORMATION ADMINISTRATOR Performed On: 11/08/2012 13:40 HEALTH INFORMATION ADMINISTRATOR by MELITA GALLARDO Intake Chief Complaint : ob visit, having left side back and side pain LMP Date : 08-31-12 Systolic Blood Pressure : 126mmHg Diastolic Blood Pressure : 70mmHg NIBP Mean : 89mmHg BP Location : Left upper extremity Blood Pressure Cuff Size : Regular Actual Weight : 89.2kg(Converted to: 196lb 10oz) Dosing Weight Clinic : 89.20kg MELITA GALLARDO - 11/08/2012 13:40 HEALTH INFORMATION ADMINISTRATOR General Info Information Given By : Patient Languages : Indonesian MELITA GALLARDO - 11/08/2012 13:40 HEALTH INFORMATION ADMINISTRATOR Subjective Pain Symptoms : No MELITA GALLARDO - 11/08/2012 13:40 HEALTH INFORMATION ADMINISTRATOR Dependent Habits Tobacco Use/Currently Using : No Tobacco Use/Last 12 months : No Exposure to Tobacco Smoke : Lives with someone who smokes, Other: none Smoking Status : Never smoker MELITA GALLARDO - 11/08/2012 13:40 HEALTH INFORMATION ADMINISTRATOR Caffeine Use Grid Caffeine Use : Current Type : Coffee Frequency : Daily MELITA GALLARDO - 11/08/2012 13:40 HEALTH INFORMATION ADMINISTRATOR Allergy Allergies (Active) Cats Estimated Onset Date: Unspecified ; Comment: has allergy to cats ; Created By: CLIVE MACKAY LPN; Reaction Status: Active ; Category: Other ; Substance: Cats ; Type: Allergy ; Updated By: RAYMOND MACKAY LPN; Reviewed Date: 10/26/2012 10:33 HEALTH INFORMATION ADMINISTRATOR [facility] Document Id: [id number] documented in this encounter Plan of Treatment Not on filedocumented as of this encounter Procedures Procedure Name Priority Date/Time Associated Comments Diagnosis BACTERIAL CULTURE, Routine 11/08/2012 4:43 PM Res ults for this AEROBIC, URINE HEALTH INFORMATION ADMINISTRATOR procedure are in the results section. MISCELLANEOUS SENT OUT Routine 11/08/2012 4:42 PM Results for this LAB TEST HEALTH INFORMATION ADMINISTRATOR procedure are i n the results section. HX UA NITRITE POC Routine 11/08/2012 1:55 PM Resu lts for this HEALTH INFORMATION ADMINISTRATOR procedure are i n the results section. HX UA NITRITE POC Routine 11/08/2012 1:55 PM Resu lts for this HEALTH INFORMATION ADMINISTRATOR procedure are i n the results section. HX UA GLUCOSE POC Routine 11/08/2012 1:55 PM Resu lts for this HEALTH INFORMATION ADMINISTRATOR procedure are i n the results section. HX UA GLUCOSE POC Routine 11/08/2012 1:55 PM Resu lts for this HEALTH INFORMATION ADMINISTRATOR procedure are i n the results section. HX UA APPEAR POC Routine 11/08/2012 1:55 PM Resul ts for this HEALTH INFORMATION ADMINISTRATOR procedure are i n the results section. HX UA APPEAR POC Routine 11/08/2012 1:55 PM Resul ts for this HEALTH INFORMATION ADMINISTRATOR procedure are i n the results section. DIPSTICK, POCT, U Routine 11/08/2012 1:55 PM Resu lts for this (DIPC1) HEALTH INFORMATION ADMINISTRATOR procedure are i n the results section. DIPSTICK, POCT, U Routine 11/08/2012 1:55 PM Resu lts for this (DIPC1) HEALTH INFORMATION ADMINISTRATOR procedure are i n the results section. DIPSTICK, POCT, U Routine 11/08/2012 1:55 PM Resu lts for this (DIPC1) HEALTH INFORMATION ADMINISTRATOR procedure are i n the results section. DIPSTICK, POCT, U Routine 11/08/2012 1:55 PM Resu lts for this (DIPC1) HEALTH INFORMATION ADMINISTRATOR procedure are i n the results section. DIPSTICK, POCT, U Routine 11/08/2012 1:55 PM Resu lts for this (DIPC1) HEALTH INFORMATION ADMINISTRATOR procedure are i n the results section. DIPSTICK, POCT, U Routine 11/08/2012 1:55 PM Resu lts for this (DIPC1) HEALTH INFORMATION ADMINISTRATOR procedure are i n the results section. DIPSTICK, POCT, U Routine 11/08/2012 1:55 PM Resu lts for this (DIPC1) HEALTH INFORMATION ADMINISTRATOR procedure are i n the results section. DIPSTICK, POCT, U Routine 11/08/2012 1:55 PM Resu lts for this (DIPC1) HEALTH INFORMATION ADMINISTRATOR procedure are i n the results section. DIPSTICK, POCT, U Routine 11/08/2012 1:55 PM Resu lts for this (DIPC1) HEALTH INFORMATION ADMINISTRATOR procedure are i n the results section. DIPSTICK, POCT, U Routine 11/08/2012 1:55 PM Resu lts for this (DIPC1) HEALTH INFORMATION ADMINISTRATOR procedure are i n the results section. DIPSTICK, POCT, U Routine 11/08/2012 1:55 PM Resu lts for this (DIPC1) HEALTH INFORMATION ADMINISTRATOR procedure are i n the results section. DIPSTICK, POCT, U Routine 11/08/2012 1:55 PM Resu lts for this (DIPC1) HEALTH INFORMATION ADMINISTRATOR procedure are i n the results section. DIPSTICK, POCT, U Routine 11/08/2012 1:55 PM Resu lts for this (DIPC1) HEALTH INFORMATION ADMINISTRATOR procedure are i n the results section. DIPSTICK, POCT, U Routine 11/08/2012 1:55 PM Resu lts for this (DIPC1) HEALTH INFORMATION ADMINISTRATOR procedure are i n the results section. DIPSTICK, POCT, U Routine 11/08/2012 1:55 PM Resu lts for this (DIPC1) HEALTH INFORMATION ADMINISTRATOR procedure are i n the results section. DIPSTICK, POCT, U Routine 11/08/2012 1:55 PM Resu lts for this (DIPC1) HEALTH INFORMATION ADMINISTRATOR procedure are i n the results section. POCT KETONE, URINE Routine 11/08/2012 1:55 PM Res ults for this HEALTH INFORMATION ADMINISTRATOR procedure are i n the results section. POCT KETONE, URINE Routine 11/08/2012 1:55 PM Res ults for this HEALTH INFORMATION ADMINISTRATOR procedure are i n the results section. documented in this encounter Results Bacterial Culture, Aerobic, Urine (11/08/2012 4:43 PM HEALTH INFORMATION ADMINISTRATOR) [facility] Method Time Signature Bacterial POWERCHART Culture, Aerobic, Urine HXFinal See POWERCHART scanned/paper report. Test performed at [facility]. Specimen (Source) Anatomical Collection Method Collection Time Re ceived Time Location / / Volume Laterality Urine, Clean 11/08/2012 4:43 PM Catch HEALTH INFORMATION ADMINISTRATOR Aracely Shah APRN, C.N.P. LAB MICROBIOLOGY - GENE RAL ORDERABLES Performing Organization Address City/State/ZIP Code Phon e Number POWERCHART Miscellaneous Lab Test, Non-Tissue (11/08/2012 4:42 PM HEALTH INFORMATION ADMINISTRATOR) [facility] Method Time Signature HXTest to be urine POWERCHART Ordered microscopid HXMisc Result see sep report POWERCHART HXMisc [id number] POWERCHART Reference Lab Test Code HXMisc ua POWERCHART Specimen Source Specimen (Source) Anatomical Collection Method Collection Time Re ceived Time Location / / Volume Laterality Blood 11/08/2012 4:42 PM HEALTH INFORMATION ADMINISTRATOR Aracely Shah APRN, C.N.P. LAB MISC ORDERABLES Performing Organization Address City/State/ZIP Code Phon e Number POWERCHART HX UA GLUCOSE POC (11/08/2012 1:55 PM HEALTH INFORMATION ADMINISTRATOR) athologist Signature Glucose, POCT, Negative POWERCHART U Specimen (Source) Anatomical Collection Method Collection Time Re ceived Time Location / / Volume Laterality 11/08/2012 1:55 PM HEALTH INFORMATION ADMINISTRATOR Historical Provider LAB HISTORICAL ORDERS Performing Organization Address [facility] Code Phon e Number POWERCHART Dipstick, POCT, Urine (lab) (11/08/2012 1:55 PM HEALTH INFORMATION ADMINISTRATOR) P athologist Signature Bilirubin, Negative POWERCHART POCT, U Specimen (Source) Anatomical Collection Method Collection Time Re ceived Time Location / / Volume Laterality 11/08/2012 1:55 PM HEALTH INFORMATION ADMINISTRATOR Historical Provider LAB POCT ORDERABLES - DEVICE Performing Organization Address [facility] Code Phon e Number POWERCHART Ketone, Urine, POCT (11/08/2012 1:55 PM HEALTH INFORMATION ADMINISTRATOR) P athologist Signature Ketone, POCT, Negative POWERCHART U Specimen (Source) Anatomical Collection Method Collection Time Re ceived Time Location / / Volume Laterality 11/08/2012 1:55 PM HEALTH INFORMATION ADMINISTRATOR Historical Provider LAB POCT ORDERABLES-MANUAL Performing Organization Address [facility] Phon e Number POWERCHART Dipstick, POCT, Urine (lab) (11/08/2012 1:55 PM HEALTH INFORMATION ADMINISTRATOR) P athologist Signature Specific 1.015 POWERCHART [place], POCT, U Specimen (Source) Anatomical Collection Method Collection Time Re ceived Time Location / / Volume Laterality 11/08/2012 1:55 PM HEALTH INFORMATION ADMINISTRATOR Historical Provider LAB POCT ORDERABLES - DEVICE Performing Organization Address [facility] Code Phon e Number POWERCHART Dipstick, POCT, Urine (lab) (11/08/2012 1:55 PM HEALTH INFORMATION ADMINISTRATOR) [facility] Method Time Signature Blood, POCT, U 2+ MODERATE POWERCHART Specimen (Source) Anatomical Collection Method Collection Time Re ceived Time Location / / Volume Laterality 11/08/2012 1:55 PM HEALTH INFORMATION ADMINISTRATOR Historical Provider LAB POCT ORDERABLES - DEVICE Performing Organization Address [facility] Phon e Number POWERCHART Dipstick, POCT, Urine (lab) (11/08/2012 1:55 PM HEALTH INFORMATION ADMINISTRATOR) P athologist Signature pH, POCT, Urine 5.5 POWERCHART Specimen (Source) Anatomical Collection Method Collection Time Re ceived Time Location / / Volume Laterality 11/08/2012 1:55 PM HEALTH INFORMATION ADMINISTRATOR Historical Provider LAB POCT ORDERABLES - DEVICE Performing Organization Address [facility]/ZIP Code Phon e Number POWERCHART Dipstick, POCT, Urine (lab) (11/08/2012 1:55 PM HEALTH INFORMATION ADMINISTRATOR) P athologist Signature Protein, POCT, Negative POWERCHART U Specimen (Source) Anatomical Collection Method Collection Time Re ceived Time Location / / Volume Laterality 11/08/2012 1:55 PM HEALTH INFORMATION ADMINISTRATOR Historical Provider LAB POCT ORDERABLES - DEVICE Performing Organization Address [facility] Phon e Number POWERCHART Dipstick, POCT, Urine (lab) (11/08/2012 1:55 PM HEALTH INFORMATION ADMINISTRATOR) [facility] Signature Urobilinogen, 0.2 mg/dl POWERCHART POCT, Urine Specimen (Source) Anatomical Collection Method Collection Time Re ceived Time Location / / Volume Laterality 11/08/2012 1:55 PM HEALTH INFORMATION ADMINISTRATOR Historical Provider LAB POCT ORDERABLES - DEVICE Performing Organization Address [facility] Phon e Number POWERCHART HX UA NITRITE POC (11/08/2012 1:55 PM HEALTH INFORMATION ADMINISTRATOR) P athologist Signature Nitrites, Negative POWERCHART POCT, U Specimen (Source) Anatomical Collection Method Collection Time Re ceived Time Location / / Volume Laterality 11/08/2012 1:55 PM HEALTH INFORMATION ADMINISTRATOR Historical Provider LAB HISTORICAL ORDERS Performing Organization Address [facility] Code Phon e Number POWERCHART Dipstick, POCT, Urine (lab) (11/08/2012 1:55 PM HEALTH INFORMATION ADMINISTRATOR) P athologist Signature Leukocytes, Trace POWERCHART POCT, U Specimen (Source) Anatomical Collection Method Collection Time Re ceived Time Location / / Volume Laterality 11/08/2012 1:55 PM HEALTH INFORMATION ADMINISTRATOR Historical Provider LAB POCT ORDERABLES - DEVICE Performing Organization Address [facility]/ZIP Code Phon e Number POWERCHART HX UA APPEAR POC (11/08/2012 1:55 PM HEALTH INFORMATION ADMINISTRATOR) P athologist Signature Appearance Clear POWERCHART Specimen (Source) Anatomical Collection Method Collection Time Re ceived Time Location / / Volume Laterality 11/08/2012 1:55 PM HEALTH INFORMATION ADMINISTRATOR Historical Provider LAB HISTORICAL ORDERS Performing Organization Address City/State/ZIP Code Phon e Number POWERCHART Dipstick, POCT, Urine (lab) (11/08/2012 1:55 PM HEALTH INFORMATION ADMINISTRATOR) P athologist Signature Color Yellow POWERCHART Specimen (Source) Anatomical Collection Method Collection Time Re ceived Time Location / / Volume Laterality 11/08/2012 1:55 PM HEALTH INFORMATION ADMINISTRATOR Historical Provider LAB POCT ORDERABLES - DEVICE Performing Organization Address City/State/ZIP Code Phon e Number POWERCHART HX UA GLUCOSE POC (11/08/2012 1:55 PM HEALTH INFORMATION ADMINISTRATOR) P athologist Signature Glucose, POCT, Negative POWERCHART U Specimen (Source) Anatomical Collection Method Collection Time Re ceived Time Location / / Volume Laterality 11/08/2012 1:55 PM HEALTH INFORMATION ADMINISTRATOR Historical Provider LAB HISTORICAL ORDERS Performing Organization Address [facility]/ZIP [facility] Phon e Number POWERCHART Dipstick, POCT, Urine (lab) (11/08/2012 1:55 PM HEALTH INFORMATION ADMINISTRATOR) P athologist Signature Bilirubin, Negative POWERCHART POCT, U Specimen (Source) Anatomical Collection Method Collection Time Re ceived Time Location / / Volume Laterality 11/08/2012 1:55 PM HEALTH INFORMATION ADMINISTRATOR Historical Provider LAB POCT ORDERABLES - DEVICE Performing Organization Address [facility] Code Phon e Number POWERCHART Ketone, Urine, POCT (11/08/2012 1:55 PM HEALTH INFORMATION ADMINISTRATOR) P athologist Signature Ketone, POCT, Negative POWERCHART U Specimen (Source) Anatomical Collection Method Collection Time Re ceived Time Location / / Volume Laterality 11/08/2012 1:55 PM HEALTH INFORMATION ADMINISTRATOR Historical Provider LAB POCT ORDERABLES-MANUAL Performing Organization Address City/[facility]/ZIP Code Phon e Number POWERCHART Dipstick, POCT, Urine (lab) (11/08/2012 1:55 PM HEALTH INFORMATION ADMINISTRATOR) P athologist Signature Specific 1.015 POWERCHART [place], POCT, U Specimen (Source) Anatomical Collection Method Collection Time Re ceived Time Location / / Volume Laterality 11/08/2012 1:55 PM HEALTH INFORMATION ADMINISTRATOR Historical Provider LAB POCT ORDERABLES - DEVICE Performing Organization Address [facility]/ZIP Code Phon e Number POWERCHART Dipstick, POCT, Urine (lab) (11/08/2012 1:55 PM HEALTH INFORMATION ADMINISTRATOR) Patholo gist Method Time Signature Blood, POCT, U 2+ MODERATE POWERCHART Specimen (Source) Anatomical Collection Method Collection Time Re ceived Time Location / / Volume Laterality 11/08/2012 1:55 PM HEALTH INFORMATION ADMINISTRATOR Historical Provider LAB POCT ORDERABLES - DEVICE Performing Organization Address [facility] Code Phon e Number POWERCHART Dipstick, POCT, Urine (lab) (11/08/2012 1:55 PM HEALTH INFORMATION ADMINISTRATOR) athologist Signature pH, POCT, Urine 5.5 POWERCHART Specimen (Source) Anatomical Collection Method Collection Time Re ceived Time Location / / Volume Laterality 11/08/2012 1:55 PM HEALTH INFORMATION ADMINISTRATOR Historical Provider LAB POCT ORDERABLES - DEVICE Performing Organization Address [facility] Phon e Number POWERCHART Dipstick, POCT, Urine (lab) (11/08/2012 1:55 PM HEALTH INFORMATION ADMINISTRATOR) athologist Signature Protein, POCT, Negative POWERCHART U Specimen (Source) Anatomical Collection Method Collection Time Re ceived Time Location / / Volume Laterality 11/08/2012 1:55 PM HEALTH INFORMATION ADMINISTRATOR Historical Provider LAB POCT ORDERABLES - DEVICE Performing Organization Address [facility] Phon e Number POWERCHART Dipstick, POCT, Urine (lab) (11/08/2012 1:55 PM HEALTH INFORMATION ADMINISTRATOR) Analysis Performed At Patho logist Time Signature Urobilinogen, 0.2 mg/dl POWERCHART POCT, Urine Specimen (Source) Anatomical Collection Method Collection Time Re ceived Time Location / / Volume Laterality 11/08/2012 1:55 PM HEALTH INFORMATION ADMINISTRATOR Historical Provider LAB POCT ORDERABLES - DEVICE Performing Organization Address [facility]/ZIP Code Phon e Number POWERCHART HX UA NITRITE POC (11/08/2012 1:55 PM HEALTH INFORMATION ADMINISTRATOR) P athologist Signature Nitrites, Negative POWERCHART POCT, U Specimen (Source) Anatomical Collection Method Collection Time Re ceived Time Location / / Volume Laterality 11/08/2012 1:55 PM HEALTH INFORMATION ADMINISTRATOR Historical Provider LAB HISTORICAL ORDERS Performing Organization Address [facility]/ZIP [facility] Phon e Number POWERCHART Dipstick, POCT, Urine (lab) (11/08/2012 1:55 PM HEALTH INFORMATION ADMINISTRATOR) P athologist Signature Leukocytes, Trace POWERCHART POCT, U Specimen (Source) Anatomical Collection Method Collection Time Re ceived Time Location / / Volume Laterality 11/08/2012 1:55 PM HEALTH INFORMATION ADMINISTRATOR Historical Provider LAB POCT ORDERABLES - DEVICE Performing Organization Address [facility] Phon e Number POWERCHART HX UA APPEAR POC (11/08/2012 1:55 PM HEALTH INFORMATION ADMINISTRATOR) P athologist Signature Appearance Clear POWERCHART Specimen (Source) Anatomical Collection Method Collection Time Re ceived Time Location / / Volume Laterality 11/08/2012 1:55 PM HEALTH INFORMATION ADMINISTRATOR Historical Provider LAB HISTORICAL ORDERS Performing Organization Address [facility] Phon e Number POWERCHART Dipstick, POCT, Urine (lab) (11/08/2012 1:55 PM HEALTH INFORMATION ADMINISTRATOR) P athologist Signature Color Yellow POWERCHART Specimen (Source) Anatomical Collection Method Collection Time Re ceived Time Location / / Volume Laterality 11/08/2012 1:55 PM HEALTH INFORMATION ADMINISTRATOR Historical Provider LAB POCT ORDERABLES - DEVICE Performing Organization Address [facility] Phon e Number POWERCHART documented in this encounter Visit Diagnoses Not on filedocumented in this encounter Additional Health Concerns Assessment Noted Time PHQ-9 Depression Total Score: 24 07/02/2011 4:05 PM CD T documented as of this encounter
--- OUTSIDE RECORDS SUMMARY | 2022-07-09 20:45 | XMS_ITS | Encounter Summary ---
:1990 Author Organization [facility] Address [address] [place] [address] Care Team Providers Name Role Phone Unavailable Primary Care Provider Unavailable Encounter Details Date Type Department Care Team Description 04/13/2011 [facility], P.A.-C. [address] [place] [phone] (Wo rk) Social History Tobacco [...] do you attend worship or Never 2020 pentecostalism services? Do you [...] documented as of this encounter Progress Notes Carri Hair - 04/13/2011 12:00 AM CDT [id number] CHIEF COMPLAINT / REASON FOR VISIT Sore throat. HISTORY OF PRESENT ILLNESS The patient presents to the clinic today stating that she woke up this morning with sore throat. She has had strep throat many, many times in the past. She believes the last was about 2 months ago and she wants to be sure she does not have strep. At this point in time, she has no nasal congestion, cough, headache, fever, skin rash, nausea, vomiting, diarrhea or other associated signs or symptoms. CURRENT MEDICATIONS Reviewed and no changes per EMR. ALLERGIES Reviewed and no changes per EMR. VITAL SIGNS Per EMR. PHYSICAL EXAM GENERAL: Patient is alert, pleasant, in no acute distress. EYES: Conjunctivae and sclerae are clear. ENT: EACs and TMs within normal limits. Oropharynx has 2+ tonsillar hypertrophy. There is exudate bilaterally, a little more so on the right than the left. Neck has no adenopathy. LUNGS: Clear to auscultation bilaterally. IMPRESSION / REPORT / PLAN DIAGNOSTIC: Rapid strep negative. 1) Pharyngitis. At this point in time, discussed this appears to be viral, but I would encourage her to observe. Treat symptomatically. We will notify her tomorrow if throat culture is positive and treat accordingly. She is comfortable with this plan. Carri Hair P.A.-C. cla Electronically Signed By: CARRI HARI On: 04/14/2011 08:14 AM Source: [facility] MHSDOLBEYNONRADSYS Document Id: [id number] documented in this encounter Procedure Notes Jessica Adam R.N. - 04/13/2011 9:55 AM CDT Rapid Strep A Screen POC Rapid Strep A Screen POC Entered On: 04/13/2011 9:55 CDT Performed On: 04/13/2011 9:55 CDT by JESSICA AZAR Rapid Strep A Screen POC Rapid Strep A Screen POC: Negative Internal QC: Pass JESSICA AZAR - 04/13/2011 9:55 CDT Source: [facility] POWERCHART Document Id: [id number] CDT!4 documented in this encounter Miscellaneous Notes Miscellaneous - Carri Hair - 04/13/2011 9:48 AM CDT Ambulatory Patient Summary [facility] [address] [place] [id number] Visit Information Name: NORAH GIMENEZ Current Date: 04/13/2011 09:48:07 Primary Care Provider: GINNY MALDONADO MD Your [...] 05/09/2010 05/09/2011 Depression: PHQ-9 every 6 months 04/13/2011 Vaccine: Tetanus every 10 years 05/14/2004 05/12/2014 Immunization to help prevent you from getting the serious disease Tetanus (Lockjaw). Your Upcoming Appointments Date Time Location Reason Provider No Appointments found Your Goals/Additional instructions: Source: [employer] Document Id: [id number] Electronically signed by Conversion, [facility] Sustainable Systems Analyst [id number] at 02/28/2017 3:25 PM CDT Carri Daniels - 04/13/2011 9:48 AM CDT Ambulatory Depart Summary [facility] [address] [place] [id number] Visit Information Name: NORAH GIMENEZ Current Date: 04/13/2011 09:48:07 Primary Care Provider: GINNY MALDONADO MD AMMY NORAH MAYORGA has been given [...] tab Oral once a day Additional Information: Yes - Current list of reconciled medications is provided and explained to the patient and/or family, guardian/caregiver. Source: [email or web address] Document Id: [id number] Electronically signed by Conversion, [facility] Sustainable Systems Analyst [id number] at 02/28/2017 3:25 PM CDT Jessica Zarate RWanderNWander - 04/13/2011 9:32 AM CDT Adult Mechanical Maintenance Instructor Intake/History Adult Mechanical Maintenance Instructor Intake/History Entered On: 04/13/2011 9:32 CDT Performed On: 04/13/2011 9:32 CDT by JESSICA AZAR Intake Chief Complaint: Sore throat Onset of Symptoms: today Temperature Oral: 37.0C(Converted to: 98.6DegF) Apical Heart Rate: 82/min Respiratory Rate: 16/min Systolic Blood Pressure: 102mmHg Diastolic Blood Pressure: 66mmHg NIBP Mean: 78mmHg BP Location: Right upper extremity Heart Rhythm: Regular Actual Weight: 88.200kg(Converted to: 194lb 7oz) Dosing Weight Clinic: 88.20kg JESSICA AZAR - 04/13/2011 9:32 CDT Subjective Pain Symptoms: No WING AZAREREN Blue - 04/13/2011 9:32 CDT Dependent Habits Tobacco Use/Currently Using: No Exposure to Tobacco Smoke: Lives with someone who smokes JESSICA AZAR Mirza - 04/13/2011 9:32 CDT Caffeine Use Grid Caffeine Use: Current Type: Coffee Frequency: Daily LUCERO AZARLEIDY Blue - 04/13/2011 9:32 CDT Allergy Allergies (Active) Cats Estimated Onset Date: Unspecified ; Comment: has allergy to cats ; Created By: CLIVE MACKAY LPN; Reaction Status: Active ; Category: Other ; Substance: Cats ; Type: Allergy ; Updated By: RAYMOND MACKAY LPN; Reviewed Date: 03/20/2011 18:52 CDT Source: [email or web address] Document Id: [id number] CDT!24 documented in this encounter Plan of Treatment Not on filedocumented as of this encounter Visit Diagnoses Not on filedocumented in this encounter
--- OUTSIDE RECORDS SUMMARY | 2022-07-09 20:45 | XMS_ITS | Encounter Summary ---
:1990 Author Organization [facility] Address [address] [place] [address] Care Team Providers Name Role Phone Unavailable Primary Care Provider Unavailable Encounter Details Date Type Department Care Team Description 02/20/2011 Hospital Encounter [facility]X [facility] Kev Sesay M.D . [address] [place] [phone] (Wo rk) Social History Tobacco Use [...] you attend latter day or Never 2020 buddhist services? Do you [...] as of this encounter Progress Notes Kev Crockett M.D. - 02/20/2011 12:19 PM CDT EC DATE OF SERVICE: 02/20/2011 REASON FOR VISIT Question . HISTORY OF PRESENT ILLNESS Barbra is an 20-year-old female 1, para 1 who comes in today complaining of some stomach aches which she describes as more of nausea though occasionally she has a pain that goes alongwith this in her lower and upper belly. Patient is concerned that she might be as this is how she felt the last time. Patients last menstrual period was the beginning of last month and she states that she is due again on the first of February. Patient has been having this slight nausea and abdominal cramping since last week. She has taken a test at [facility] which was negative, but reports that her urine tests always turn up negative even when she was . The patient is sexua lly active and states that she usually uses condoms but thinks the condom ripped about 2-3 weeks ago. The patient denies any vaginal pain or discharge. The patient describes her pain in the belly as kind of a cramping or aching sensation that goes into her lower back. She is wondering if she might have a urinary tract infection. REVIEW OF SYSTEMS General: No fevers, chills, or sweats. No breast tenderness. Respiratory: No shortness of breath or cough. GI: No significant heartburn, nausea, vomiting, diarrhea, or constipation. : No pain and burning with urination. No odd smells or colors. Extremities: No significant swelling. EXAMINATION VITAL SIGNS: Temperature 36.7, pulse 88, respirs 20, blood pressure 120/70. HEENT: Atraumatic, normocephalic. Oral cavity pink and moist. CARDIOVASCULAR: Regular rate and rhythm. No murmurs auscultated. RESPIRATORY: Clear to auscultation bilaterally. ABDOMEN: Soft, mildly tender in the right lower quadrant and left lower quadrant. Positive bowel sounds in all 4 quadrants. No organomegaly noted. MUSCULOSKELETAL: Evaluation of patients back reveals some mild tenderness over the bilateral paraspinous muscles in the lumbar region. DIAGNOSTIC DATA Urinalysis and urine HCG are both negative at this time. IMPRESSION/REPORT/PLAN Abdominal discomfort likely premenstrual. I recommended plenty of fluids and Tylenol for discomfort as the patient still is concerned that shemay be and it just might be too early. I encouraged the patient to wait and see if she doesdevelop her menstrual period on time. If she does, she can, of course, use whatever medication she likes for discomfort but if she misses her period or is late for her period, I would recommend that she use a home test and if she continues to be late for her menstrual cycle, come in to have it reevaluated with either a quantitative or qualitative beta HCG. The patient indicates her understanding. CRS:yung Doc#: [id number] cc: Electronically Signed By: KEV CROCKETT MD On: 03/29/2011 07:13 AM Source: [facility] ISJDICTAPHONESYS Document Id: [id number] documented in this encounter Miscellaneous Notes Miscellaneous - Conversion, Historical Provider Ser - 02/20/2011 12:40 PM CDT Adult Pharmacy Affairs Assistant Intake/History Adult Pharmacy Affairs Assistant Intake/History Entered On: 02/20/2011 12:45 CDT Performed On: 02/20/2011 12:40 CDT by CHEYANNE BRYAN LPN Intake Chief Complaint: lower back ache, abd pain, nausea, Onset of Symptoms: one week Ambulatory Intake Additional Information: also headaches with vision changes Temperature Core: 36.7C(Converted to: 98.1DegF) Peripheral Pulse Rate: 88/min Respiratory Rate: 20/min Systolic Blood Pressure: 120mmHg Diastolic Blood Pressure: 70mmHg NIBP Mean: 87mmHg BP Location: Left upper extremity Heart Rhythm: Regular CHEYANNE BRYAN LPN - 02/20/2011 12:40 CDT Subjective Pain Symptoms: Yes CHEYANNE BRYAN LPN - 02/20/2011 12:40 CDT Pain Pain Assessment Grid Pain 1 Location: Abdomen Laterality: Bilateral Intensity: 5 Time Pattern: Acute Quality: Aching CHEYANNE BRYAN LPN - 02/20/2011 12:40 CDT Dependent Habits Tobacco Use/Currently Using: No Exposure to Tobacco Smoke: Lives with someone who smokes CHEYANNE BRYAN LPN - 02/20/2011 12:40 CDT Caffeine Use Grid Caffeine Use: Current Type: Coffee Frequency: Daily CHEYANNE BRYAN LPN - 02/20/2011 12:40 CDT Allergy Allergies (Active) Cats Estimated Onset Date: Unspecified ; Comment: has allergy to cats ; Created By: CLIVE MACKAY LPN; Reaction Status: Active ; Category: Other ; Substance: Cats ; Type: Allergy ; Updated By: RAYMOND MACKAY LPN; Reviewed Date: 02/20/2011 12:39 CDT Source: [facility] [employer] Document Id: [id number] CDT!31 documented in this encounter Plan of Treatment Not on filedocumented as of this encounter Visit Diagnoses Not on filedocumented in this encounter
--- OUTSIDE RECORDS SUMMARY | 2022-07-09 20:45 | XMS_ITS | Encounter Summary ---
:1990 Author Organization [facility] Address [address] [place] [address] Care Team Providers Name Role Phone Unavailable Primary Care Provider Unavailable Encounter Details Date Type Department Care Team Description 12/21/2012 Hospital Encounter HX [facility] Todd Dinero [...] do you attend jewish or Never 2020 jewish services? 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 - 12/21/2012 3:12 PM CDT [id number] CHIEF COMPLAINT/REASON FOR VISIT Routine OB visit HISTORY OF PRESENT ILLNESS This patient is a 22-year-old 10/28 female with LMP 08/31/2012. EDC 06/07/2013 at 16-0/7 weeks. Patient presents for OB visit. She is doing well. She has no complaints. Her nausea and vomiting symptoms have resolved. No pain, cramping, tenderness or discomfort. No leaking of fluid or vaginal bleeding. No headaches, vision changes. No shortness of breath or chest pain. No fevers or chills. No depression symptoms. She reports she is not feeling the baby move yet. CURRENT MEDICATIONS 1. Generic vitamins ALLERGIES No known drug allergies. PAST MEDICAL/SURGICAL HISTORY 1. History of GED currently asymptomatic. 2. History depression currently asymptomatic. 3. History of overdose, suicide attempt currently asymptomatic. PAST SURGICAL HISTORY: section 2009 PHYSICAL EXAMINATION Weight 91.1 kg. Blood pressure 118/64. Height 149 cm. GENERAL: Well developed, well nourished gravid female in no apparent distress. Alert and oriented times 3. Normal affect. ABDOMEN: Gravid, soft and nontender. Fundal height not palpated. Positive Doptones are auscultated 148 beats per minute. EXTREMITIES: No edema or tenderness. GENITAL: Exam deferred. LABS 11/23/2012 repeat LCR for chlamydia negative, gonorrhea negative. IMPRESSION/REPORT/PLAN 1. Intrauterine at 16-0/7 weeks. Positive cardiac activity. 2. History of prior section with documented low segment transverse uterine tension. 3. Nausea, vomiting of resolved. 4. History of chlamydia in 10/05/2012 5. Rubella nonimmune status. 6. Obesity. 7. History depression and suicide attempt currently asymptomatic. PLAN 1. I reviewed LCR results of the patient which are negative. The patient received treatment for positive chlamydia test earlier in . 2. STD prevention discussed with the patient. 3. Follow up in 3 weeks for OB visit or be seen sooner p.r.n. 4. Follow up in 5 to 6 weeks for OB ultrasound or be seen sooner p.r.n. 5. I discussed genetic testing quad screen test with the patient. The patient declines 6. Depression precautions reviewed with the patient. 7. Routine OB precautions, recommendations and instructions are reviewed with patient including movement and kick counts. 8. I recommend elective repeat section at term. Todd Aponte M.D./vijay Electronically Signed By: TODD APONTE MD On: 12/23/2012 10:44 AM Source: [facility] MHSDOLBEYNONRADSYS Document Id: [id number] documented in this encounter Miscellaneous Notes Miscellaneous - Todd Aponte M.D. - 12/21/2012 3:29 PM CDT Ambulatory Patient Summary [address] [address] Visit Information Name: BARBRA GIMENEZ [facility] Number: [id number] Current Date: 12/21/2012 15:29:54 Physicians Attending Provider: TODD APONTE MD Primary [...] Time Location Reason Provider 01/11/2013 10:00 [facility] WAREHOUSE LOGISTICS MANAGER ob Todd Aponte MD 01/25/2013 10:00 [facility] WAREHOUSE LOGISTICS MANAGER ob, ob ultrasound Todd Aponte MD Your Goals/Additional instructions: Source: [facility] POWERCHART Document Id: [id number] Miscellaneous - Todd Aponte M.D. - 12/21/2012 3:29 PM CDT Ambulatory Depart Summary [address] [address] Visit Information Name: BARBRA GIMENEZ [facility] Number: [id number] Visit Date: 12/21/2012 15:29:54 Attending Provider: TODD APONTE MD Primary Care [...] provider for clarification. Additional Information: Source: [facility] POWERCHART Document Id: [id number] Miscellaneous - Nori Hong, L.P.N. - 12/21/2012 3:16 PM CDT Adult Ceo And Co Founder Intake/History Adult Ceo And Co Founder Intake/History Entered On: 12/21/2012 15:19 CDT Performed On: 12/21/2012 15:16 CDT by NORI HONG Intake Chief Complaint : OB visit 16 weeks c/o decreased appetite LMP Date : 08/31/2012 Systolic Blood Pressure : 118mmHg Diastolic Blood Pressure : 64mmHg NIBP Mean : 82mmHg BP Location : Left upper extremity Blood Pressure Cuff Size : Regular Actual Weight : 91.1kg(Converted to: 200lb 13oz) Weight Source : Standing scale Dosing Weight Clinic : 91.10kg NORI HONG 12/21/2012 15:16 CDT General Info Languages : Malay NORI HONG 12/21/2012 15:16 CDT Subjective Pain Symptoms : No NORI HONG 12/21/2012 15:16 CDT Dependent Habits Tobacco Use/Currently Using : No Exposure to Tobacco Smoke : Lives with someone who smokes, Other: none Smoking Status : Never smoker NORI HONG 12/21/2012 15:16 CDT Caffeine Use Grid Caffeine Use : Current Type : Coffee Frequency : Daily NORI HONG 12/21/2012 15:16 CDT Allergy Allergies (Active) Cats Estimated Onset Date: Unspecified ; Comment: has allergy to cats ; Created By: CLIVE MACKAY LPN; Reaction Status: Active ; Category: Other ; Substance: Cats ; Type: Allergy ; Updated By: RAYMOND MACKAY LPN; Reviewed Date: 12/21/2012 15:16 CDT Source: [facility] [employer] Document Id: [id number] documented in this encounter Plan of Treatment Not on filedocumented as of this encounter Visit Diagnoses Not on filedocumented in this encounter Additional Health Concerns Assessment Noted Time PHQ-9 Depression Total Score: 1 11/16/2012 11:45 AM CS T documented as of this encounter
--- OUTSIDE RECORDS SUMMARY | 2022-07-09 20:45 | XMS_ITS | Encounter Summary ---
:1990 Author Organization [facility] Address [address] [place] [address] Care Team Providers Name Role Phone Unavailable Primary Care Provider Unavailable Encounter Details Date Type Department Care Team Description 11/16/2012 Hospital Encounter HX [facility] oTdd Dinero M .D. Social History Tobacco Use [...] do you attend mandaeism or Never 2020 sabianism services? Do you belong to any clubs [...] Sign Reading Time Taken Comments Blood Pressure 98/60 11/16/2012 10:42 AM AIRBORNE SENSOR SPECIALIST Pulse - - Temperature - - Respiratory Rate - - Oxygen Saturation - - Inhaled Oxygen Concentration - - Weight 90.2 kg (198 lb 13.7 oz) 11/16/2012 10:42 AM AIRBORNE SENSOR SPECIALIST Height - - Body Mass Index 40.63 05/20/2012 2:58 PM CDT documented in this encounter Progress Notes Todd Aponte M.D. - 11/16/2012 10:32 AM CST [id number] CHIEF COMPLAINT/REASON FOR VISIT Routine OB visit HISTORY OF PRESENT ILLNESS This patient is a 22-year-old female with LMP 08/31/2012 and EDC 06/07/2013 at 11-0/7 weeks. Patient presents for OB visit. She is doing well. She has no complaints. She has some mild nausea, vomiting symptoms which are improved with Zofran. She is tolerating diet and gaining weight. She denies bleeding. No cramping, tenderness, discomfort. No vaginal itching, irritation or discharge. Patient was seen last week for bladder infection and finished antibiotics. She has no further difficulty urinating. No further UTI symptoms. No headaches, vision changes. No depression symptoms. She is not feeling baby move yet. She reports she is no longer with the father of the baby. CURRENT MEDICATIONS 1. Generic vitamins 2. Zofran as needed 3. Macrobid prescription completed 4. Azithromycin prescription completed. ALLERGIES No known drug allergies. PAST MEDICAL/SURGICAL HISTORY 1. GERD currently on no medication 2. History of depression currently on no medication 3. History of overdose and suicide attempt now on no medication 4. History of kidney stones on no medication Past Surgical History section 2009 Past Obstetrical History section 11/26/2009 at 37-2/7 weeks male infant 6 pounds 10 ounces for arrest of dilation. ADULT PREVENTATIVE SERVICES Provided by Zohreh Beaulieu at [facility]. These records are not available for my review. SOCIAL HISTORY Patient is single. The father of the baby is no longer involved. She denies tobacco, alcohol, drug use. She has a history of chlamydia on 10/05/2012 which was treated. No history of PID. She has history of cervical dysplasia with abnormal Pap smear 2009. She reports normal followup Pap smear. No history of abuse. FAMILY HISTORY Denied by patient. VITAL SIGNS WEIGHT 90.2 kg BLOOD PRESSURE: 98/60 PULSE 70 PHYSICAL EXAMINATION GENERAL: Well developed, well nourished, obese, gravid female in no apparent distress. Alert and oriented times 3. Normal affect. ABDOMEN: Gravid, obese, soft and nontender. Fundal height not palpated. Positive Doptones are auscultated 158 beats per minute. Well healed Pfannenstiel skin incision. EXTREMITIES: No edema or tenderness. GENITALIA: Genital exam declined by patient. LABS 10/26/2012 blood type O+, antibody screen negative, hemoglobin 12.2, hematocrit 35.5, platelets 283,rubella nonimmune, serology negative, chlamydia positive, gonorrhea negative, hepatitis B surface antigen negative, HIV negative, TSH 1.5, vitamin D 127. LABS 10/14/2012 urine culture negative. IMPRESSION/REPORT/PLAN 1. Intrauterine at 11-0/7 weeks. Positive cardiac activity. 2. History of prior section. 3. Nausea and vomiting in improved on medication 4. History of chlamydia on 10/05/2012 treated 5. Rubella nonimmune status. 6. Obesity 7. History of depression, suicide attempt currently asymptomatic on no medication Plan 1. I would like the patient to come back in 2 weeks for first OB history, physical examination including pelvic exam and Pap smear. 2. I reviewed new OB lab results with the patient 3. I recommend repeat chlamydia testing at the next visit to confirm test of cure for chlamydia 4. Nausea, vomiting precautions reviewed with the patient. Symptomatic relief measures reviewed with the patient 5. I encourage fluids and hydration. 6. I recommend a repeat section at term. Todd Aponte M.D./andrews DOCID: [id number] Electronically Signed By: TODD APONTE MD On: 11/17/2012 11:48 AM Source: [facility] MHSDOLBEYNONRADSYS Document Id: [id number] ORNE SENSOR SPECIALIST documented in this encounter Miscellaneous Notes Miscellaneous - Todd Aponte M.D. - 11/16/2012 12:06 PM CST [place] [address] Visit Information Name: NORAH GIMENEZ [facility] Number: [id number] Current Date: 11/16/2012 12:06:41 Physicians Attending Provider: TODD APONTE MD Primary [...] Upcoming Appointments Date Time Location Reason Provider 11/23/2012 13:30 [facility] SOFTWARE TECHNICAL LEAD first ob H&P, Pap Todd Aponte MD Your Goals/Additional instructions: Source: [facility] POWERCHART Document Id: [id number] ORNE SENSOR SPECIALIST Miscellaneous - Todd Aponte M.D. - 11/16/2012 12:06 PM CST [place] [address] Visit Information Name: NORAH GIMENEZ [facility] Number: [phone] Visit Date: 11/16/2012 12:06:40 Attending Provider: TODD APONTE MD Primary Care [...] your provider for clarification. Additional Information: Source: [facility] LeWa TekCHART Document Id: [id number] ORNE SENSOR SPECIALIST Alden Winter L.P.N. - 11/16/2012 11:45 AM CST PHQ-9 PHQ-9 Entered On: 11/16/2012 11:46 AIRBORNE SENSOR SPECIALIST Performed On: 11/16/2012 11:45 AIRBORNE SENSOR SPECIALIST by ALDEN DE LA GARZA PHQ-9 Little interest or pleasure in doing things : Not at all Feeling down, depressed, or hopeless : Not at all Trouble falling or staying asleep, or sleeping too much : Not at all Feeling tired or having little energy : Not at all Poor appetite or overeating : Several days Feeling bad about yourself or that you are a failure : Not at all Trouble concentrating on things : Not at all Moving or speaking slowly; restless or fidgety : Not at all Thoughts that you would be better off /hurting self : Not at all PHQ-9 Calculated Score : 1 Problems make work, home, or dealing with others : Not difficult at all ALDEN DE LA GARZA - 11/16/2012 11:45 AIRBORNE SENSOR SPECIALIST Source: [facility] [employer]ulls Document Id: [id number] ORNE SENSOR SPECIALIST Alden Winter L.P.N. - 11/16/2012 10:42 AM CST Adult Secret Code Expert Intake/History Adult Secret Code Expert Intake/History Entered On: 11/16/2012 10:43 AIRBORNE SENSOR SPECIALIST Performed On: 11/16/2012 10:42 AIRBORNE SENSOR SPECIALIST by ALDEN DE LA GARZA Intake Chief Complaint : OB visit 11 weeks LMP Date : 08/31/2012 Systolic Blood Pressure : 98mmHg Diastolic Blood Pressure : 60mmHg NIBP Mean : 73mmHg BP Location : Right upper extremity Blood Pressure Cuff Size : Regular Actual Weight : 90.2kg(Converted to: 198lb 14oz) Weight Source : Standing scale Dosing Weight Clinic : 90.20kg ALDEN DE LA GARZA 11/16/2012 10:42 AIRBORNE SENSOR SPECIALIST General Info Information Given By : Patient Languages : Malian ALDEN DE LA GARZA - 11/16/2012 10:42 AIRBORNE SENSOR SPECIALIST Subjective Pain Symptoms : No ALDEN DE LA GARZA 11/16/2012 10:42 AIRBORNE SENSOR SPECIALIST Dependent Habits Tobacco Use/Currently Using : No Exposure to Tobacco Smoke : Lives with someone who smokes, Other: none Smoking Status : Never smoker ALDEN DE LA GARZA 11/16/2012 10:42 AIRBORNE SENSOR SPECIALIST Caffeine Use Grid Caffeine Use : Current Type : Coffee Frequency : Daily ALDEN DE LA GARZA 11/16/2012 10:42 AIRBORNE SENSOR SPECIALIST Allergy Allergies (Active) Cats Estimated Onset Date: Unspecified ; Comment: has allergy to cats ; Created By: CLIVE MACKAY LPN; Reaction Status: Active ; Category: Other ; Substance: Cats ; Type: Allergy ; Updated By: RAYMOND MACKAY LPN; Reviewed Date: 10/26/2012 10:33 AIRBORNE SENSOR SPECIALIST Source: [facility] POWERCHART Document Id: [id number] ORNE SENSOR SPECIALIST documented in this encounter Plan of Treatment Not on filedocumented as of this encounter Visit Diagnoses Not on filedocumented in this encounter Additional Health Concerns Assessment Noted Time PHQ-9 Depression Total Score: 1 11/16/2012 11:45 AM CS T documented as of this encounter
--- OUTSIDE RECORDS SUMMARY | 2022-07-09 20:45 | XMS_ITS | Encounter Summary ---
:1990 Author Organization [facility] Address [address] [place] [address] Care Team Providers Name Role Phone Unavailable Primary Care Provider Unavailable Encounter Details Date Type Department Care Team Description 07/28/2011 [facility] Elias kamlesh L, AGRICULTURAL CHEMIST, C.N.P., [address] [facility] [place] [address] (Wo rk) Social History Tobacco [...] do you attend bahai or Never 2020 yazdanism services? Do you [...] documented as of this encounter Progress Notes Beatrice Mendes, RICHIE, C.N.P. - 07/28/2011 5:10 PM CDT EC DATE OF SERVICE: 07/28/2011 REASON FOR VISIT Nausea. HISTORY OF PRESENT ILLNESS This is a 21-year-old female who comes in with some complaints of nausea for the last five days or so. She is worried that she is today. She states that she had unprotected sex on July 04 and with her and then she proceeded to have her period July 06 through the July 08 or July 09 she states but she still feels that she may be . She states she has had some mild abdominal cramping. She has had no dysuria, but she does state that her urine has been a little bit cloudy. She has had no itching pain, no vaginal discharge. She says there is no chance she could have any sexually transmitted diseases and does not need any testing today for that. She is just looking for us to do a serum and urinalysis test. She states she has not vomited. She has had no diarrhea with this and she does not recall eating anything that has been upsetting her stomach. She did feel a little bit faint yesterday, but wondering if she is a little bit dehydrated with this as well. PAST MEDICAL, FAMILY, AND SOCIAL HISTORY Medical: Reviewed and reconciled. MEDICATIONS Reviewed and reconciled. ALLERGIES Reviewed and reconciled. EXAMINATION GENERAL: This is a 21-year-old female in no acute distress. VITAL SIGNS: Temperature 36.5. Pulse rate 80. Respiratory rate 18. Blood pressure 120/80. HEENT: Head: Normocephalic. Atraumatic. Eyes: PERRLA. Nares are patent bilaterally. Mucous membranesare moist and intact. NECK: Supple. No lymphadenopathy noted. CHEST: Lung sounds clear in all oconnor. HEART: S1, S2 auscultated. No murmurs, rubs or gallops are noted. ABDOMEN: Soft. She has got no abdominal bloating. Bowel sounds are active. Organomegaly is noted. She has really no tenderness in the abdomen or flank area. DIAGNOSTIC DATA Beta HCG was done for serum which was negative. HCG for urine is negative. Urinalysis is negative for any signs of bacteria infection. IMPRESSION/REPORT/PLAN Nausea. I did explain to the patient that she should drink plenty of fluids. She can start a BRAT diet as long as she is not feeling overly nauseated. I told her to introduce fluids slowly, to avoid spicy foods at this time. If she has signs of dehydration or is unable to tolerate foods or fluids I did tell her to return or if she has any other signs and symptoms or acute discomfort she should be reseen. Shehas no other questions at this time. She is agreeable with this plan of care and is very satisfied that she is not today. [facility]:sst Doc#: [id number] cc: Electronically Signed By: BEATRICE MENDES DIAMOND FINISHING SUPERVISOR On: 08/03/2011 02:48 PM Modified by and Electronically Signed by: BEATRICE MENDES NP On: 08/03/2011 02:48 PM Source: [facility] ISJDICTAPHONESYS Document Id: [id number] R SALES ENERGY ADVISOR documented in this encounter Miscellaneous Notes Miscellaneous - Bethany Gamino LWanderPWanderN. - 07/28/2011 5:17 PM CDT Adult Tree And Shrub Technician Intake/History Adult Tree And Shrub Technician Intake/History Entered On: 07/28/2011 17:23 CDT Performed On: 07/28/2011 17:17 CDT by BETHANY GAMINO LPN Intake Chief Complaint : c/o nausea every morning and off/on thru day. has not missed a cycle yet, has had unprotected sex, and wants to discuss a test. c/o lower abd pain. denies any pain w/ urination. Onset of Symptoms : 1 week Temperature Core : 36.5C(Converted to: 97.7DegF) Peripheral Pulse Rate : 80/min Respiratory Rate : 18/min Systolic Blood Pressure : 120mmHg Diastolic Blood Pressure : 80mmHg NIBP Mean : 93mmHg BP Location : Right upper extremity Actual Weight : 86.4kg(Converted to: 190lb 8oz) Dosing Weight Clinic : 86.40kg BETHANY GAMINO LPN - 07/28/2011 17:17 CDT Subjective Pain Symptoms : Yes BETHANY GAMINO LPN - 07/28/2011 17:17 CDT Dependent Habits Tobacco Use/Currently Using : No Exposure to Tobacco Smoke : Lives with someone who smokes Smoking Status : Never smoker BETHANY GAMINO LPN - 07/28/2011 17:17 CDT Caffeine Use Grid Caffeine Use : Current Type : Coffee Frequency : Daily BETHANY GAMINO LPN - 07/28/2011 17:17 CDT Allergy Allergies (Active) Cats Estimated Onset Date: Unspecified ; Comment: has allergy to cats ; Created By: CLIVE MACKAY LPN; Reaction Status: Active ; Category: Other ; Substance: Cats ; Type: Allergy ; Updated By: RAYMOND MACKAY LPN; Reviewed Date: 07/28/2011 17:17 CDT Source: [employer] Document Id: [id number] CDT!24 documented in this encounter Plan of Treatment Not on filedocumented as of this encounter Visit Diagnoses Not on filedocumented in this encounter Additional Health Concerns Assessment Noted Time PHQ-9 Depression Total Score: 24 07/02/2011 4:05 PM CD T documented as of this encounter
--- OUTSIDE RECORDS SUMMARY | 2022-07-09 20:46 | XMS_ITS | Encounter Summary ---
:1990 Author Organization [facility] Address [address] [place] [address] Care Team Providers Name Role Phone Unavailable Primary Care Provider Unavailable Encounter Details Date Type Department Care Team Description 03/10/2010 Hospital Encounter HX [facility] OWCassandra Mo A PRN, C.N.P., M.S.N. Social History Tobacco Use Types Packs/Day Years [...] do you attend yazidi or Never 2020 baptism services? Do you belong to any clubs [...] documented as of this encounter Progress Notes Cassandra Salguero M.S.N. - 03/10/2010 12:00 AM CDT [id number] CHIEF COMPLAINT/REASON FOR VISIT Barbra is seen for placement of a Mirena IUD. HISTORY OF PRESENT ILLNESS She has previously been counseled by me and did have negative GC chlamydia testing during her and wishes to go ahead with placement today as she started her period on 03/06/2010. She has read through the printed information and has no concerns. She is currently breast-feeding and is about 12 weeks . VITAL SIGNS TEMPERATURE: 36.7 degreesC HEART RATE: 64 BLOOD PRESSURE: 116/74 left arm PHYSICAL EXAM GENERAL: Alert, oriented, pleasant 19-year-old female in no acute distress. SKIN: Warm, pink and dry. IMPRESSION/REPORT/PLAN PROCEDURE: She has read through the information and filled out the consent form, wishes to proceed with IUD placement today. Safe site verification was performed with the nurse, patient and myself. Bimanual exam was performed and showed a midline uterus which moves without cervical motion tenderness. Speculum was then inserted and vagina and cervix prepped with Betadine solution. Tenaculum was placed on the anterior lip of the cervix. Cervix was sounded to 8 cm without difficulty although patient did have some moderate cramping. The Mirena IUD was then placed and strings were trimmed to 2 cm length and tolerated procedure well overall. Tenaculum was removed with no bleeding from tenacula site and vagina is wiped free of Betadine solution and discharge. 1) 19-year-old female with placement of a Mirena IUD (intrauterine device) today. We reviewed post insertion instructions and signs and symptoms to watch for. Asked that she return in 6 weeks' time for followup and to check IUD placement. Call us sooner with any questions, problems or concerns. She was given printed information regarding the Mirena IUD and a card with the date of insertion and date for removal. Her questions were answered and she was feeling well at the time of dismissal. Christy Multani.N.P. bft Electronically Signed By:CASSANDRA SALGUERO NP On 03/13/2010 12:49 PM Source: [facility] MHSDOLBEYNRAJI Document Id: [id number] documented in this encounter Miscellaneous Notes Miscellaneous - Conversion, Historical Provider Ser - 03/10/2010 10:29 AM CDT Adult Grease And Tallow Pumper Intake/History Adult Grease And Tallow Pumper Intake/History Entered On: 03/10/2010 10:33 CDT Performed On: 03/10/2010 10:29 CDT by JULIUS LAMB Intake Chief Complaint: MIRENA IUD INSERTION LMP Date: 03/06/2010 Temperature Oral: 36.7DegC(Converted to: 98.1DegF) Peripheral Pulse Rate: 64bpm Systolic Blood Pressure: 116mmHg Diastolic Blood Pressure: 74mmHg NIBP Mean: 88mmHg BP Location: Left upper extremity JULIUS LAMB - 03/10/2010 10:29 CDT Subjective Pain Symptoms: No JULIUS LAMB - 03/10/2010 10:29 CDT Dependent Habits Tobacco Use/Currently Using: No JULIUS LAMB - 03/10/2010 10:29 CDT Allergies Allergies (Active) Cats Estimated Onset Date: Unspecified ; Comment: has allergy to cats ; Created By: CLIVE MACKAY LPN; Reaction Status: Active ; Category: Other ; Substance: Cats ; Type: Allergy ; Updated By: RAYMOND MACKAY LPN; Reviewed Date: 04/25/2009 15:44 CDT Source: [facility] POWERCHART Document Id: [id number] CDT!14 documented in this encounter Plan of Treatment Not on filedocumented as of this encounter Visit Diagnoses Not on filedocumented in this encounter
--- OUTSIDE RECORDS SUMMARY | 2022-07-09 20:46 | XMS_ITS | Encounter Summary ---
:1990 Author Organization [facility] Address [address] [place] [address] Care Team Providers Name Role Phone Unavailable Primary Care Provider Unavailable Encounter Details Date Type Department Care Team Description 07/24/2009 Hospital Encounter HX [facility] Royal Huff M.D. Social History Tobacco Use Types Packs/Day [...] do you attend quaker or Never 2020 religion services? Do you [...]
--- OUTSIDE RECORDS SUMMARY | 2022-07-09 20:46 | XMS_ITS | Encounter Summary ---
:1990 Author Organization [facility] Address [address] [place] [address] Care Team Providers Name Role Phone Unavailable Primary Care Provider Unavailable Encounter Details Date Type Department Care Team Description 10/09/2010 Hospital Encounter [facility] Florencio Lira M.D. Social History Tobacco Use Types Packs/Day [...] do you attend sikhism or Never 2020 yarsanism services? Do you [...] documented as of this encounter Progress Notes Reinaldo Enamorado M.D. - 10/09/2010 1:19 PM CST [facility] DATE OF SERVICE: 10/09/2010 REASON FOR VISIT Left sided abdominal pain. HISTORY OF PRESENT ILLNESS Barbra is an 20-year-old female, 1 para 1 AB 0, last menstrual period last month. She is currently on control. She comes in today because of left lower abdominal pain. She was seen about a week ago and at that time was told she had an infection. Apparently she had some gastroenteritis that was treated symptomatically. Things did seem to get better but now she is having more pain in her left lower abdomen. She says it seems to be getting worse. She denies any problems with having bowel movements, no pain with urination although she does notice that she has had some blood in the urine but she said she is having her period. No fever, shakes or chills. MEDICATIONS Ortho-Cyclen; Paxil 10 mg daily; hydroxyzine 50 mg three times a day; Zantac 150 daily. ALLERGIES CATS. EXAMINATION Weight 86.9 kg. Temperature 36.6 C. Pulse 80. Respirations 20. Blood pressure 124/78. Chest: Clear to auscultation and percussion. Heart: Regular rate, no murmur. Abdomen soft. Minimal tenderness to palpation in the left lower quadrant. However, there actually is a bruise about 3 inches in diameter inher left lower quadrant. No masses or organomegaly. Bowel sounds are active. IMPRESSION/REPORT/PLAN Left lower abdominal pain. We will go ahead today and do a UA, CBC and arrange for a CT scan. White count was normal. Urinalysis was unremarkable except for blood. CT scan was normal. Will go ahead and provide symptomatic care with fluids, Tylenol. Told her that the bruise might be an indication that she might have hit herself in the belly there, got poked there and that may be the cause of her pain. However, if her pain should get worse or not get any better she should come back for reevaluation and probably ultrasound. FAWN:raina Doc#: [id number] Electronically Signed By:REINALDO ENAMORADO MD On 10/12/2010 04:20 PM Source: [facility] ISJDICTAPHONESYS Document Id: [id number] INATION CLERK documented in this encounter Miscellaneous Notes Miscellaneous - Conversion, Historical Provider Ser - 10/09/2010 1:24 PM TERMINATION CLERK Adult Sales Project Engineer Intake/History Adult Sales Project Engineer Intake/History Entered On: 10/09/2010 13:29 TERMINATION CLERK Performed On: 10/09/2010 13:24 TERMINATION CLERK by MANDEEP RUIZ LPN Intake Chief Complaint: abdominal pain left side Onset of Symptoms: 1-2 weeks Temperature Core: 36.6C(Converted to: 97.9DegF) Peripheral Pulse Rate: 80/min Respiratory Rate: 20/min Systolic Blood Pressure: 124mmHg Diastolic Blood Pressure: 78mmHg NIBP Mean: 93mmHg BP Location: Right upper extremity Actual Weight: 86.900kg(Converted to: 191lb 9oz) Dosing Weight Clinic: 86.90kg MANDEEP RUIZ LPN - 10/09/2010 13:24 TERMINATION CLERK Subjective Pain Symptoms: Yes GI Symptoms: Abdominal pain, Nausea, Vomiting, Other: bleeding MANDEEP RUIZ LPN - 10/09/2010 13:24 TERMINATION CLERK Pain Pain Assessment Grid Pain 1 Location: Abdomen Laterality: Left Intensity: 9 MANDEEP RUIZ LPN - 10/09/2010 13:24 TERMINATION CLERK Dependent Habits Tobacco Use/Currently Using: No Tobacco Use/Advised to Quit: No Exposure to Tobacco Smoke: Lives with someone who smokes MANDEEP RUIZ LPN - 10/09/2010 13:24 TERMINATION CLERK Caffeine Use Grid Caffeine Use: Current Type: Coffee Frequency: Daily MANDEEP RUIZ LPN - 10/09/2010 13:24 TERMINATION CLERK Allergies Allergies (Active) Cats Estimated Onset Date: Unspecified ; Comment: has allergy to cats ; Created By: CLIVE MACKAY LPN; Reaction Status: Active ; Category: Other ; Substance: Cats ; Type: Allergy ; Updated By: RAYMOND MACKAY LPN; Reviewed Date: 10/09/2010 13:23 TERMINATION CLERK Source: [facility] POWERCHART Document Id: [id number] TERMINATION CLERK!31 documented in this encounter Plan of Treatment Not on filedocumented as of this encounter Procedures Procedure Name Priority Date/Time Associated Diagnosis Comme nts CT ABDOMEN PELVIS Routine 10/09/2010 3:23 PM Resu lts for this WITH IV CONTRAST TERMINATION CLERK procedure a re in the results section. documented in this encounter Results CT Abdomen Pelvis with IV Contrast (10/09/2010 3:23 PM TERMINATION CLERK) Anatomical Region Laterality Modality Abdomen, Pelvis, Abdominal RST LOS, Abdominal ARZ LOS, N/A Computed Tomography Abdominal FLA LOS Specimen (Source) Anatomical Collection Method Collection Time Re ceived Time Location / / Volume Laterality 10/09/2010 3:23 PM TERMINATION CLERK Narrative 10/09/2010 3:45 PM TERMINATION CLERK PROCEDURE: Following the oral administra tion of contrast and during the rapid infusion of intravenous contra st series of helical images in the axial plane were obtained through th e abdomen and pelvis. ?? FINDINGS: The lower lung oconnor are ramila r. The liver, spleen and pancreas are normal size, position, cont our, CT density and enhancement pattern. The gallbladder is present and no calcified gallstones are seen. The stomach and sma ll bowel are normal. Contrast outlines the colon which appears normal. The appendix is opacified and appears normal. No inflammatory changes noted in the right lower quadrant or elsewhere in the abdomen or pelvis. No free air is seen. The kidneys demonstrate a symmetric neph rogram and no hydronephrosis is seen. The large vessels of the retrop eritoneum enhance normally. No retroperitoneal adenopathy is seen. The left ovary measures 3 cm in diameter. The right ovary measures 2 x 3 cm in diameter. No free fluid is noted in the pelvis. ?? CONCLUSION: Probably normal CT scan of t he abdomen and pelvis. If symptoms localized to the lower abdomen or pelvis would recommend an ultrasound for further evaluation. Procedure Note Delfino Shah M.D. / ProviderKalyan M.D. - 02/17/2017 PROCEDURE: Following the oral administra tion of contrast and during the rapid infusion of intravenous contra st series of helical images in the axial plane were obtained through th e abdomen and pelvis. FINDINGS: The lower lung oconnor are ramila r. The liver, spleen and pancreas are normal size, position, cont our, CT density and enhancement pattern. The gallbladder is present and no calcified gallstones are seen. The stomach and sma ll bowel are normal. Contrast outlines the colon which appears normal. The appendix is opacified and appears normal. No inflammatory changes noted in the right lower quadrant or elsewhere in the abdomen or pelvis. No free air is seen. The kidneys demonstrate a symmetric neph rogram and no hydronephrosis is seen. The large vessels of the retrop eritoneum enhance normally. No retroperitoneal adenopathy is seen. The left ovary measures 3 cm in diameter. The right ovary measures 2 x 3 cm in diameter. No free fluid is noted in the pelvis. CONCLUSION: Probably normal CT scan of t he abdomen and pelvis. If symptoms localized to the lower abdomen or pelvis would recommend an ultrasound for further evaluation. Historical Provider IMG CT PROCEDURES documented in this encounter Visit Diagnoses Not on filedocumented in this encounter
--- OUTSIDE RECORDS SUMMARY | 2022-07-09 20:46 | XMS_ITS | Encounter Summary ---
:1990 Author Organization [facility] Address [address] [place] [address] Care Team Providers Name Role Phone Unavailable Primary Care Provider Unavailable Encounter Details Date Type Department Care Team Description 07/11/2010 Hospital Encounter [facility]X [facility] Jeremy Quintana, DWanderOWander [address], [address] [place], [place] [id number] (Wo rk) Social History Tobacco Use Types [...] do you attend episcopal or Never 2020 amish services? Do you belong to any clubs [...]
--- OUTSIDE RECORDS SUMMARY | 2022-07-09 20:46 | XMS_ITS | Encounter Summary ---
:1990 Author Organization [facility] Address [address] [place] [address] Care Team Providers Name Role Phone Unavailable Primary Care Provider Unavailable Encounter Details Date Type Department Care Team Description 06/25/2010 Hospital Encounter [facility]X [facility] Li Hoff P.AWander-CWander [address] [place], [place] [address] (Wo rk) Social History Tobacco Use Types [...] do you attend samaritan or Never 2020 nondenominational services? Do you [...] documented as of this encounter Progress Notes Li Latham P.A.-C. - 06/25/2010 6:14 PM CDT EC DATE OF SERVICE: 06/25/2010 REASON FOR VISIT Norah is a 19-year-old female who presents to the clinic with some midabdominal pain that started yesterday. HISTORY OF PRESENT ILLNESS She states that she denies any nausea or vomiting. No diarrhea. She has had this pain previously. Itkind of depends on what she eats. Denies any increased belching or heartburn-type feeling. She did have her IUD taken out 10 days ago and states that she did have a period since that time. She denies the pain being sharp today, but at times earlier it had been kind of sharp in the midabdomen. She denies any urgency or frequency. She did ask about since she was told that after taking the IUDout she could get relatively quickly. She has had her menstrual cycle and it did stop two to three days ago. She has not had any intercourse since that time, so seems relatively low. PAST, FAMILY, AND SOCIAL HISTORY Medical: Reviewed. ALLERGIES CATS. EXAMINATION Temperature 36.6. Pulse 88. Respirations 20. Blood pressure 110/70. Lungs: Clear to auscultation. Heart: Regular. Abdomen: Soft, nondistended. There is mild left upper quadrant to midquadrant abdominaldiscomfort, but not actual significant pain with palpation. Bowel sounds are normoactive throughout.No masses or organomegaly are noted. DIAGNOSTIC DATA Urinalysis: Specific gravity greater than 1.030 and a trace of protein. IMPRESSION/REPORT/PLAN Dyspepsia. We discussed pushing more water throughout her day. Placed her on Zantac 150 mg b.i.d., #30. She will follow up with her primary care provider if she is not feeling any better or worse. She is to call if she has questions. NAF:viola Doc#: [id number] Electronically Signed By:LI LATHAM On 06/30/2010 05:04 PM Source: [facility] ISJDICTAPHONESYS Document Id: [id number] documented in this encounter Miscellaneous Notes Miscellaneous - Li Latham P.A.-C. - 06/25/2010 6:54 PM CDT Ambulatory Patient Summary [address] [address] Visit Information Name: NORAH GIMENEZ Current Date: 06/25/2010 18:54:49 Primary Care Provider: GINNY MALDONADO MD Your Medications Here is a list of your medications. It is important to take your medications as directed. Use a pillbox or chart to help remind you to take your medications. Please let your doctor or nurse know if you have problems taking your medications. Medication/Strength Dose Route Frequency Indications/Special Instructions/Comments ranitidine (Zantac 150 mg oral tablet) 1 tab(s) Oral once a day ethinyl estradiol-norgestimate (Ortho Cyclen) 1 tab Oral once a day paroxetine (Paxil 10 mg oral tablet) 10 mg Oral once a day hydrOXYzine (hydrOXYzine pamoate 50 mg oral capsule) 50 mg Oral three times a day olopatadine ophthalmic (Patanol 0.1% ophthalmic solution) 1 drop(s) Eyes(Both) two times a day multivitamin, ( Multivitamins) 1 each Oral once a day Your Allergies & [...] IUD - Removal of intrauterine device Active Your Recommendations We want to make sure [...] Screening Chlamydia every 1 year Females Age 15-24 05/09/2010 05/09/2011 Your Upcoming Appointments Date Time Location Reason Provider 07/15/2010 09:30 MALLIKA Denise DEPRESSION/CONNER Daniel, Iveth J Your Goals/Additional instructions: Source: [facility] POWERCHART Document Id: [id number] Electronically signed by Conversion, [facility] Jack Strip Assembler [id number] at 03/01/2017 1:55 AM CDT Miscellaneous - Li Latham P.A.-C. - 06/25/2010 6:54 PM CDT Ambulatory Depart Summary [facility] - [address] [address] Visit Information Name: NORAH GIMENEZ Current Date: 06/25/2010 18:54:48 Primary Care Provider: GINNY MALDONADO MD NORAH GIMENEZLE has been given the following list of medications: Your Medications It is important to take your medications as directed. Use a pill box or chart to help remind you to take your medications. Please let your doctor or nurse know if you have problems taking your medications. Medication/Strength Dose Route Frequency Indications/Special Instructions/Comments ranitidine (Zantac 150 mg oral tablet) 1 tab(s) Oral once a day ethinyl estradiol-norgestimate (Ortho Cyclen) 1 tab Oral once a day paroxetine (Paxil 10 mg oral tablet) 10 mg Oral once a day hydrOXYzine (hydrOXYzine pamoate 50 mg oral capsule) 50 mg Oral three times a day olopatadine ophthalmic (Patanol 0.1% ophthalmic solution) 1 drop(s) Eyes(Both) two times a day multivitamin, ( Multivitamins) 1 each Oral once a day Additional Information: Source: [facility] Steven Winston LLCCHART Document Id: [id number] Electronically signed by Conversion, [facility] Jack Strip Assembler [id number] at 03/01/2017 1:55 AM CDT Miscellaneous - Conversion, Historical Provider Ser - 06/25/2010 6:26 PM CDT Pediatric Chief Executive Intake/History Pediatric Chief Executive Intake/History Entered On: 06/25/2010 18:30 CDT Performed On: 06/25/2010 18:26 CDT by CHEYANNE BRYAN LPN Intake Chief Complaint: abd pain Onset of Symptoms: yesterday Ambulatory Intake Additional Information: had iud taken 10 days ago, now pain sharp, no bleeding Temperature Core: 36.6C(Converted to: 97.9DegF) Peripheral Pulse Rate: 88/min Respiratory Rate: 20/min Systolic Blood Pressure: 110mmHg Diastolic Blood Pressure: 70mmHg NIBP Mean: 83mmHg BP Location: Right upper extremity CHEYANNE BRYAN BRENNA - 06/25/2010 18:26 CDT Subjective Pain Symptoms: Yes CHEYANNE BRYAN BRENNA - 06/25/2010 18:26 CDT Pain Pain Assessment Grid Pain 1 Location: Abdomen Laterality: Bilateral Intensity: 5 Time Pattern: Constant Onset: Gradual CHEYANNE BRYAN BRENNA - 06/25/2010 18:26 CDT Dependent Habits Tobacco Use/Currently Using: No Exposure to Tobacco Smoke: Lives with someone who smokes CHEYANNE BRYAN BRENNA - 06/25/2010 18:26 CDT Allergy Allergies (Active) Cats Estimated Onset Date: Unspecified ; Comment: has allergy to cats ; Created By: CLIVE MACKAY LPN; Reaction Status: Active ; Category: Other ; Substance: Cats ; Type: Allergy ; Updated By: RAYMOND MACKAY LPN; Reviewed Date: 06/25/2010 18:25 CDT Source: [facility] POWERCHART Document Id: [id number] CDT!25 documented in this encounter Plan of Treatment Not on filedocumented as of this encounter Visit Diagnoses Not on filedocumented in this encounter
--- OUTSIDE RECORDS SUMMARY | 2022-07-09 20:46 | XMS_ITS | Encounter Summary ---
:1990 Author Organization [facility] Address [address] [place] [address] Care Team Providers Name Role Phone Unavailable Primary Care Provider Unavailable Encounter Details Date Type Department Care Team Description 07/10/2009 Hospital Encounter [facility]X [facility] Royal Huff [...] do you attend adventist or Never 2020 episcopalian services? Do you [...]
--- OUTSIDE RECORDS SUMMARY | 2022-07-09 20:46 | XMS_ITS | Encounter Summary ---
:1990 Author Organization [facility] Address [address] [place] [address] Care Team Providers Name Role Phone Unavailable Primary Care Provider Unavailable Encounter Details Date Type Department Care Team Description 09/06/2009 Hospital Encounter [facility]X [facility] Kev James M.D . [address] [place] [phone] (Wo rk) Social History Tobacco Use [...] do you attend pentecostal or Never 2020 advent services? Do you [...]
--- OUTSIDE RECORDS SUMMARY | 2022-07-09 20:46 | XMS_ITS | Encounter Summary ---
:1990 Author Organization [facility] Address [address] [place] [address] Care Team Providers Name Role Phone Unavailable Primary Care Provider Unavailable Encounter Details Date Type Department Care Team Description 08/12/2010 Hospital Encounter [facility]X [facility] Jeremy Jennings, D.O. [address], [address] [place] [address] (Wo rk) Social History Tobacco Use Types [...] do you attend mandaeism or Never 2020 shinto services? Do you belong to any clubs [...] documented as of this encounter Progress Notes Enoch Crespo D.O. - 08/12/2010 2:34 PM CST [facility] DATE OF SERVICE: 08/12/2010 REASON FOR VISIT Nausea, dizzy and losing weight. HISTORY OF PRESENT ILLNESS Barbra is an 20-year-old female who presents to the clinic with concerns about nausea and dizziness.Symptoms began day with nausea. She also had some stomachaches and felt generally fatigued. Deannates that she is gaining a little bit of weight recently. She also relates that she vomited threetimes this morning. She denies dysuria. She denies pelvic pain. She does have some urinary frequency. She has not been on any recent antibiotics. She usually takes oral contraceptive between 4 and 6 p.m. She never misses a day. She is sexually active. She missed her period this month. She had a 8 months ago. PAST MEDICAL, FAMILY, AND SOCIAL HISTORY Social: The patient lives with someone who smokes. ALLERGIES CATS. REVIEW OF SYSTEMS As above, otherwise, the patient denies chest pain, palpitations or shortness of breath. All other systems are reviewed and are negative. EXAMINATION Temperature of 36.7 C. Pulse 88. Respirations 18. Blood pressure is 120/74. Weight is 86.3 kilograms. General: Alert, interactive, 20-year-old female. Mood and affect seem cheerful and bright. Heart: S1, S2, no murmur. Lungs: Clear to auscultation bilaterally. No rhonchi, wheezing or rales. Abdomen: Soft, non- tender. Bowel sounds are active. No hepatosplenomegaly. DIAGNOSTIC DATA Urinalysis was negative. Urine test was negative. The patient then requested a serum test. This was also negative. A CBC was essentially normal with a hemoglobin of 14.0. White blood cell count 7.9. Platelet count of 329. Following this, an abdomen 2 view x-ray was obtained showinga non-specific bowel gas pattern with a significant amount of stool present throughout the entire colon. IMPRESSION/REPORT/PLAN 1. Malaise and fatigue. 2. Abdominal pain, not otherwise specified. 3. Constipation, not otherwise specified. I advised the patient on lab findings, x-ray findings and recommended bowel regimen to encourage emptying the colon. Also advised on hydrating as this is probably why she has so much stool in her colon, being dehydrated. The patient will try this and return as needed. CARLY:darrian Doc#: [id number] Electronically Signed By:ENOCH CRESPO DO On 10/03/2010 02:00 PM Source: [facility] ISJDICTAPHONESYS Document Id: [id number] CTOR OF DIGITAL TECHNOLOGY documented in this encounter Miscellaneous Notes Miscellaneous - Yamile Khan L.PWanderNWander - 08/12/2010 2:39 PM CST Adult Pre Press Proofer Intake/History Adult Pre Press Proofer Intake/History Entered On: 08/12/2010 14:44 DIRECTOR OF DIGITAL TECHNOLOGY Performed On: 08/12/2010 14:39 DIRECTOR OF DIGITAL TECHNOLOGY by YAMILE KHAN LPN Intake Chief Complaint: nauseated dizzy has lost weight had to leave work ? preg. Temperature Core: 36.7C(Converted to: 98.1DegF) Peripheral Pulse Rate: 88/min Respiratory Rate: 18/min Systolic Blood Pressure: 120mmHg Diastolic Blood Pressure: 74mmHg NIBP Mean: 89mmHg BP Location: Right upper extremity Actual Weight: 86.300kg Actual Weight Conversion to Pounds: 189.860lb Dosing Weight Clinic: 86.30kg YAMILE KHAN LPN - 08/12/2010 14:39 DIRECTOR OF DIGITAL TECHNOLOGY Subjective Pain Symptoms: No YAMILE KHAN LPN - 08/12/2010 14:39 DIRECTOR OF DIGITAL TECHNOLOGY Dependent Habits Tobacco Use/Currently Using: No Exposure to Tobacco Smoke: Lives with someone who smokes YAMILE KHAN LPN - 08/12/2010 14:39 DIRECTOR OF DIGITAL TECHNOLOGY Caffeine Use Grid Caffeine Use: Current Type: Coffee Frequency: Daily YAMILE KHAN LPN - 08/12/2010 14:39 DIRECTOR OF DIGITAL TECHNOLOGY Allergies Allergies (Active) Cats Estimated Onset Date: Unspecified ; Comment: has allergy to cats ; Created By: CLIVE MACKAY LPN; Reaction Status: Active ; Category: Other ; Substance: Cats ; Type: Allergy ; Updated By: RAYMOND MACKAY LPN; Reviewed Date: 08/12/2010 14:38 DIRECTOR OF DIGITAL TECHNOLOGY Source: [facility] POWERCHART Document Id: [id number] DIRECTOR OF DIGITAL TECHNOLOGY!23 CTOR OF DIGITAL TECHNOLOGY documented in this encounter Plan of Treatment Not on filedocumented as of this encounter Procedures Procedure Name Priority Date/Time Associated Diagnosis Comme nts DX ABDOMEN SUPINE Routine 08/12/2010 3:57 PM Resu lts for this WITH UPRIGHT OR DIRECTOR OF DIGITAL TECHNOLOGY procedure ar e in DECUBITUS 2 VIEWS the result s section. documented in this encounter Results DX Abdomen Supine with Upright or Decubitus 2 Views (08/12/2010 3:57 PM DIRECTOR OF DIGITAL TECHNOLOGY) Anatomical Region Laterality Modality Abdomen Right Radiographic Imaging Specimen (Source) Anatomical Collection Method Collection Time Re ceived Time Location / / Volume Laterality 08/12/2010 3:57 PM DIRECTOR OF DIGITAL TECHNOLOGY Narrative 08/12/2010 4:25 PM DIRECTOR OF DIGITAL TECHNOLOGY FINDINGS: No free air is seen under the diaphragm. The bowel gas pattern is nonspecific. No organomegaly is seen. No abnormal intra-abdominal or pelvic calcifications are seen. ?? CONCLUSION: Benign abdomen. Procedure Note Delfino Shah M.D. / Provider, Kalyan zelaya M.D. - 02/19/2017 FINDINGS: No free air is seen under the diaphragm. The bowel gas pattern is nonspecific. No organomegaly is seen. No abnormal intra-abdominal or pelvic calcifications are seen. CONCLUSION: Benign abdomen. Virginia Velarde(R)(CT), RWanderTWander(R)(M) IMG DIAGNOSTIC IMAGING PROCEDURES documented in this encounter Visit Diagnoses Not on filedocumented in this encounter
--- OUTSIDE RECORDS SUMMARY | 2022-07-09 20:46 | XMS_ITS | Encounter Summary ---
:1990 Author Organization [facility] Address [address] [place] [address] Care Team Providers Name Role Phone Unavailable Primary Care Provider Unavailable Encounter Details Date Type Department Care Team Description 10/28/2009 Hospital Encounter HX [facility] ED Li Latham P.A.-C. [address] [place], [place] [address] (Wo rk) Social History [...] do you attend anabaptist or Never 2020 holiness services? Do you [...] documented as of this encounter Discharge Summaries Cain Flanagan RCassandra. - 10/28/2009 9:29 PM CST ED Discharge Instructions [address] [address] Name: NORAH GIMENEZ Date of : 1990 12:00 AM Visit Date: 10/28/2009 6:58 PM FIN: Current Date: 10/28/2009 21:29:47 Address: [address] [facility] [place] [id number] Primary Care Provider: VIJAY BEVERLY MD IMPORTANT: [facility] would like to thank you for allowing us to assist you with your healthcare needs. We examined and treated you today on an emergency basis only. This was not a substitute for, or an effort to provide, complete medical care. If you had any cultures, special tests, or x-rays performed during your visit, your final reports will be reviewed and we will contact you if thereare any new or significant findings other than what was discussed with you during your visit today. You have received patient education materials and information regarding your injury/illness. Follow these instructions and take all medications as prescribed. If you, ( NORAH GIMENEZ ), have any problems that we have not discussed, please call or visit your doctor right away. If you cannot reachyour doctor, return to the Emergency Department. Follow-Up Instructions: With: Address: When: VIJAY BEVERLY [address] [place] [phone] phone, [place] (1) Within 1 - 2 days Comments: Call for follow up appointment For recheck Patient Education Materials: VIRAL GASTRO-ENTERITIS [6yr-Adult] Gastro-enteritis is another name for the stomach flu. It is most often caused by a virus which affects the stomach and intestinal tract and may last from 2-7 days. Antibiotics are not effective, but simple home treatment will be helpful. HOME CARE: 1) If symptoms are severe, rest at home for the next 24 hours. 2) Avoid tobacco and alcohol use, which may worsen your symptoms. 3) You may use acetaminophen (Tylenol) or ibuprofen (Motrin, Advil) for fever, unless another medicine was prescribed. [NOTE: If you have chronic liver or kidney disease or ever had a stomach ulcer or GI bleeding, talk with your doctor before using these medicines.] (Aspirin should never be used in anyone under 18 years of age who is ill with a fever. It may cause severe liver damage.) 4) If medicines for diarrhea or vomiting were prescribed, take only as directed. 5) Once vomiting stops, then follow these guidelines: DURING THE FIRST 12-24 HOURS follow the diet below: ?? FRUIT JUICES: Strained orange juice or lemonade (no pulp), apple, grape and cranberry juice, clear fruit drinks, electrolyte replacement and sports drinks. ?? BEVERAGES: Soft drinks and carbonated drinks without caffeine; mineral water (plain or flavored),decaffeinated tea and coffee. ?? SOUPS: Clear broth, consomm?? and bouillon ?? DESSERTS: Plain gelatin (Jell-O), popsicles and fruit juice bars. As you feel better, you may add6-8 oz of yogurt per day. DURING THE NEXT 24 HOURS you may add the following to the above: ?? Hot cereal, plain toast, bread, rolls, crackers ?? Plain noodles, rice, mashed potatoes, chicken noodle or rice soup ?? Unsweetened canned fruit (avoid pineapple), bananas ?? Limit fat intake to less than 15 grams per day by avoiding margarine, butter, oils, mayonnaise, sauces, gravies, fried foods, peanut butter, meat, poultry and fish. ?? Limit fiber; avoid raw or cooked vegetables, fresh fruits (except bananas) and bran cereals. ?? Limit caffeine and chocolate. No spices or seasonings except salt. DURING THE NEXT 24 HOURS Gradually resume a normal diet, as you feel better and your symptoms lessen. FOLLOW UP with your doctor as advised if you are not improving over the next 2-3 days. If a stool (diarrhea) sample was taken, you may call in 2 days (or as directed) for the results. RETURN PROMPTLY or contact your doctor if any of the following occur: -- Constant right-sided lower abdominal pain -- Continued vomiting (unable to keep liquids down) -- Frequent diarrhea (more than 5 times a day); blood (red or black color) or mucus in diarrhea -- Reduced oral intake -- Reduced urine output or extreme thirst -- Weakness, dizziness, fainting -- Drowsiness, confusion, stiff neck or seizure -- Fever over 101.0?? F (38.3?? C) for more than 3 days Discharge Prescriptions & Home Medications: Medication/Strength Dose Route Frequency Indications/Special Instructions/Comments multivitamin, ( Multivitamins) 1 each Oral once a day Attention: If you have any medications at home that are not on this list, please contact your provider for clarification. Patient Visit Summary: NORAH GIMENEZ has been given the following list of patient education materials, prescriptions, Home Medications and follow-up instructions: Follow-up Instructions: With: Address: When: VIJAY BEVERLY [address] [place] [phone] phone, [place] (5) Within 1 - 2 days Comments: Call for follow up appointment For recheck Patient Education Materials: GASTROENTERITIS, Viral [6y-Adult] Discharge Prescriptions & Home Medications: Medication/Strength Dose Route Frequency Indications/Special Instructions/Comments multivitamin, ( Multivitamins) 1 each Oral once a day Attention: If you [...] to take those medications. NORAH GIMENEZ or fautma has reviewed the home medications you have [...] had special tests, such as EKG's or X-rays, we will review them again within 24 hours. We will call you if there are any new suggestions. Please follow the instructions above carefully. I, NORAH GIMENEZ , or responsible constitution party have received this information and my questions havebeen answered. I have discussed any challenges I see with this plan with the nurse or physician. Patient Signature or Responsible Democrat Date/Time Provider Signature Date/Time Source: HEALTH SYSTEM POWERCHART Document Id: [id number] Cain Flanagan R.NWander - 10/28/2009 9:29 PM CST ED Depart Summary [facility] Emergency Department / Urgent Care Clinical Discharge Summary PERSON INFORMATION Name NORAH GIMENEZ Age 19 Years 1990 12:00 AM Sex Female Language Jordanian PCP VIJAY BEVERLY MD Marital Status Single N [id number] Visit Id Visit Reason Abdominal pain - ; Abdominal pain - ; Abdominal pain; Abdominal pain; NOT FEELING WELL Specialty Enc Type Emergency Med Service Emergency Medicine Referred by Track Group [facility] ED/UC Discharge 10/28/2009 9:29 PM Tracking Id [id number] Checkout 10/28/2009 9:29 PM Checkin 10/28/2009 6:58 PM Acuity 3 -Urgent Dispo Type Discharged to Home or Self Care Arrival 10/28/2009 6:58 PM Reg Status Complete LOS 000 02:31 Address: [facility] [address] [facility] [place] [id number] Comment: PROVIDER INFORMATION Provider Role Assigned Unassigned LI LATHAM ED Provider 10/28/2009 7:21 PM CAIN GUPTA MEETING FACILITATOR Nurse 10/28/2009 7:21 PM VITALS INFORMATION Vital Sign Triage Latest Temp Oral 37.6 DegC 37.6 DegC Temp Axillary Temp Core 02 Sat Respiratory Rate 16 br/min 16 br/min Pulse Rate Peripheral Pulse Rate 113 bpm 113 bpm Apical Heart Rate Blood Pressure 118 mmHg / 81 mmHg 132 mmHg / 80 mmHg Comment: DIAGNOSIS Gastroenteritis NOS; , Normal Comment: ORDERS INFORMATION Start Time Order Type Status Stop Time Provider 10/28/2009 7:32 PM UR Microscopic Laboratory Completed 10/28/2009 7:48 PM LI LATHAM 10/28/2009 9:21 PM acetaminophen Pharmacy Completed 10/28/2009 9:25 PM LI LATHAM 10/28/2009 9:20 PM ondansetron Pharmacy Completed 10/28/2009 9:25 PM LI LATHAM 10/28/2009 7:32 PM Basic Metabolic Panel Laboratory Completed 10/28/2009 8:15 PM LI LATHAM 10/28/2009 7:32 PM Urinalysis with Microscopic if Indicated Laboratory Completed 10/28/2009 7:47 PM LI LATHAM 10/28/2009 7:32 PM CBC Laboratory Completed 10/28/2009 7:52 PM LI LATHAM 10/28/2009 7:32 PM Manual Differential Laboratory Completed 10/28/2009 7:52 PM LI LATHAM 10/28/2009 7:23 PM ED Saline Lock Patient Care Ordered 10/28/2009 7:23 PM LI LATHAM 10/28/2009 7:23 PM Peripheral IV to Saline Lock Patient Care Ordered 10/28/2009 7:23 PM LI LATHAM 10/28/2009 7:23 PM Sodium Chloride 0.9% Pharmacy Ordered LI LATHAM 10/28/2009 7:32 PM Automated Diff-5 Part Laboratory Canceled 10/28/2009 7:37 PM SYSTEM, SYSTEM 10/28/2009 7:50 PM Sodium Chloride 0.9% 1,000 mL Pharmacy Discontinued 10/28/2009 9:25 PM LI LATHAM MEDICAL INFORMATION Allergy Info: Cats Medication List: Medication/Strength Dose Route Frequency Indications/Special Instructions/Comments multivitamin, ( Multivitamins) 1 each Oral once a day Comment: DISCHARGE INFORMATION Discharge Disposition: Discharged to Home or Self Care Discharge Location: DEPART REASON INCOMPLETE INFORMATION PATIENT EDUCATION INFORMATION Instructions: GASTROENTERITIS, Viral [6y-Adult] Follow up: With: Address: When: VIJAY BEVERLY [address] [place] [phone] phone, [employer], [place] (1) Within 1 - 2 days Comments: Call for follow up appointment For recheck PHYS DOC NOTES Patient: NORAH GIMENEZ - [place] MRN Age: 19 years Sex: Female : 1990 Author: LI LATHAM Basic Information Time seen: Date & time 10/28/2009 19:15:00. History source: Patient. Arrival mode: Private vehicle. History limitation: None. Additional information:: Chief Complaint from Nursing Triage Note : Chief Complaint Description. 10/28/2009 19:15 STRATEGIC ADVISOR Chief Complaint Description c/o upper bilateral abdominal pain starting this morinng. Was seen this morning by her OB, was told it was false labor. C/o nausea starting this morning. Vomiting x2. History of Present Illness The patient presents with Pain across the upper abdomen off and on -tightening. Has also had some epigastric pain and nausea with 2 episodes of vomitting this AM. Saw Dr. Amaya this AM and felt that she was having Ernst-Da Silva contractions. She also states that her sister has not been feeling well with ST that is not strep and upset stomach. Patient has not had much to eat or drink today due to thenausea.. Radiating pain: none. Status : 1, Para: 0 33 weeks. The relieving factor is none. Risk factors consist of none. Prior episodes: none. Therapy today: doctor's office visit. symptoms movement. Associated symptoms: nausea, vomiting and fever. Review of Systems Gastrointestinal symptoms: Negative except as documented in HPI. Health Status Allergies: . Allergic Reactions (all) Cats Medications: . Medication Orders Sodium Chloride 0.9% (Saline flush), 10 mL, IV, PRN, PRN Continuous Infusion Orders NS Continuous and 1000ml Bolus 1,000 mL, 1000 mL/hr, IV, Give 1000 mL saline bolus Prescriptions and Home Medications multivitamin, ( Multivitamins), 1 each, PO, Daily, 100 each Past Medical/ Family/ Social History Medical history: Medical history. No active or resolved past medical history items have been selected or recorded. Surgical history: Surgical history. No active procedure history items have been selected or recorded. Family history: Family history. No family history items have been selected or recorded. Physical Examination Vital signs: Vital Signs, 10/28/2009 19:45 STRATEGIC ADVISOR Peripheral Pulse Rate 113 bpm HI Respiratory Rate 16 br/min Systolic Blood Pressure 116 mmHg Diastolic Blood Pressure 75 mmHg BP Location Left upper 10/28/2009 19:15 STRATEGIC ADVISOR Temperature Oral 37.6 DegC Peripheral Pulse Rate 113 bpm HI Respiratory Rate 16 br/min Systolic Blood Pressure 118 mmHg Diastolic Blood Pressure 81 mmHg Mean Arterial Pressure 93 mmHg BP Location Left upper Oxygen saturation Oxygen Therapy & Oxygenation Information. 10/28/2009 19:45 STRATEGIC ADVISOR Oxygen Therapy Room air SpO2 97 % 10/28/2009 19:15 STRATEGIC ADVISOR Oxygen Therapy Room air SpO2 95 % Impression and Plan gastroenteritis Discharge plan Condition: Improved. Dispositioned: Time 10/28/2009 21:30:00, To home. Patient was given the following educational materials: GASTROENTERITIS, Viral [6y-Adult]. Follow up with: In: as needed, Dr Amaya. Counseled: Patient, Family, Regarding diagnosis, Regarding treatment plan, Regarding prescription. Source: HEALTH SYSTEM POWERCHART Document Id: [id number] documented in this encounter Nursing Notes Cain Flanagan R.N. - 10/28/2009 7:41 PM CST FHR at 1940 is 150. Found in RL. Electronically Signed By:CAIN GUPTA RN On 10/28/2009 07:41 pm Source: HEALTH SYSTEM POWERCHART Document Id: [id number] TEGIC ADVISOR Cain Flanagan R.N. - 10/28/2009 7:15 PM CST ED Primary Assessment ED Primary Assessment Entered On: 10/28/2009 19:21 STRATEGIC ADVISOR Performed On: 10/28/2009 19:15 STRATEGIC ADVISOR by CAIN GUPTA RN Reason For Visit Diagnoses(Active) Abdominal pain Date: 10/28/2009 19:15 STRATEGIC ADVISOR ; Diagnosis Type: Reason For Visit ; Confirmation: Confirmed ; Classification: Nursing ; Clinical Service: Emergency medicine ; Code: SNOMED CT ; Probability: 0 ; Diagnosis Code: [id number] Triage Chief Complaint Description: c/o upper bilateral abdominal pain starting this morinng. Was seen thismorning by her OB, was told it was false labor. C/o nausea starting this morning. Vomiting x2. Information Given By: Patient Accompanied By: Mother, Sibling Mode of Arrival ED: Private vehicle Track: Medical Languages: Jordanian, Danish Pain Symptoms: Yes Vital Signs Assessed: Yes GCS Assessed: Yes CAIN GUPTA RN - 10/28/2009 19:15 STRATEGIC ADVISOR Pain Pain Assessment Grid Pain 1 Location: Abdomen Laterality: Bilateral Intensity: 5 Acceptable Intensity: 0 Time Pattern: Acute Onset: Sudden Duration: started this am Quality: Other: Hard CAIN GUPTA RN - 10/28/2009 19:15 STRATEGIC ADVISOR Vital Signs Temperature Oral: 37.6DegC(Converted to: 99.7DegF) Peripheral Pulse Rate: 113bpm (HI) Respiratory Rate: 16br/min Systolic Blood Pressure: 118mmHg Diastolic Blood Pressure: 81mmHg NIBP Mean: 93mmHg BP Location: Left upper extremity SpO2: 95% Oxygen Therapy: Room air CAIN GUPTA RN - 10/28/2009 19:15 STRATEGIC ADVISOR SONNY SONNY Level 1: No SONNY Level 2: No SONNY Level 3: Many Vital Signs SONNY: No CAIN GUPTA RN - 10/28/2009 19:15 STRATEGIC ADVISOR DCP GENERIC CODE Tracking Acuity: 3 -Urgent Tracking Group: [facility] ED/ CAIN GUPTA RN - 10/28/2009 19:15 STRATEGIC ADVISOR Allergy Allergies (Active) Cats Estimated Onset Date: Unspecified ; Comment: has allergy to cats ; Created By: CLIVE MACKAY LPN; Reaction Status: Active ; Category: Other ; Substance: Cats ; Type: Allergy ; Updated By: RAYMOND MACKAY LPN; Reviewed Date: 04/25/2009 15:44 CDT Respiratory Airway: Patent Respirations: Unlabored Respiratory Pattern: Regular CAIN GUPTA RN - 10/28/2009 19:15 STRATEGIC ADVISOR Cardiovascular Heart Rhythm: Regular Skin Color: Normal for ethnicity Skin Description: Dry Skin Temperature: Warm CAIN GUPTA RN - 10/28/2009 19:15 STRATEGIC ADVISOR Neurological Level of Consciousness: Alert Orientation: Oriented x 3 Characteristics of Speech: Clear Neuro Patient Stated Symptoms: None Gait: Steady CAIN GUPTA RN - 10/28/2009 19:15 STRATEGIC ADVISOR ED Psychosocial Affect/Behavior: Calm, Cooperative, Appropriate Domestic Concerns: None CAIN GUPTA RN - 10/28/2009 19:15 STRATEGIC ADVISOR Gastrointestinal Nutrition ED: Adequate GI Detailed Assessment: Yes CAIN GUPTA RN - 10/28/2009 19:15 STRATEGIC ADVISOR GI Detailed GI Patient Stated Symptoms: Abdominal pain, Nausea, Vomiting Frequency of Vomiting: twice CAIN GUPTA RN - 10/28/2009 19:15 STRATEGIC ADVISOR /OB Assessment Patient Stated Symptoms: None : 1 Para: 0 Status: Confirmed positive Patient Stated LESLEY: 12/13/2009 CDT CAIN GUPTA RN - 10/28/2009 19:15 STRATEGIC ADVISOR Musculoskeletal Fall Prevention Education Provided: Yes CAIN GUPTA RN - 10/28/2009 19:15 STRATEGIC ADVISOR Source: [employer] Document Id: [id number] STRATEGIC ADVISOR!72 TEGIC ADVISOR documented in this encounter ED Notes Cain Flanagan R.N. - 10/28/2009 9:26 PM CST ED Disposition Summary ED Disposition Summary Entered On: 10/28/2009 21:26 STRATEGIC ADVISOR Performed On: 10/28/2009 21:26 STRATEGIC ADVISOR by CAIN GUPTA RN ED Disposition Summary Accompanied By: Mother, Sibling, Spouse Mode of Discharge: Ambulatory Transportation: Private vehicle Discharge From ED With: Home Med List Patient Status at Discharge from ED: Improved CAIN GUPTA RN - 10/28/2009 21:26 STRATEGIC ADVISOR Source: [facility] POWERCHART Document Id: [id number] STRATEGIC ADVISOR!7 TEGIC ADVISOR Cain Flanagan R.N. - 10/28/2009 9:24 PM CST ED Treatments and Procedures ED Treatments and Procedures Entered On: 10/28/2009 21:24 STRATEGIC ADVISOR Performed On: 10/28/2009 21:24 STRATEGIC ADVISOR by CAIN GUPTA RN Peripheral IV Peripheral IV Assess/Intervention Grid Peripheral IV #1 IV Activity: Discontinue Number of Attempts: 1 Date of Insertion: 10/28/2009 STRATEGIC ADVISOR IV Site: Antecubital Laterality: Left Catheter Size: 20 Catheter Type: Over the needle Site Condition: No complications Drainage Description: None CAIN GUPTA RN - 10/28/2009 21:24 STRATEGIC ADVISOR Source: [facility] [employer] Document Id: [id number] STRATEGIC ADVISOR!13 TEGIC ADVISOR Li Latham P.A.-C. - 10/28/2009 8:20 PM CST Abdominal pain - Patient: NORAH GIMENEZ - [place] MRN Age: 19 years Sex: Female : 1990 Author: LI LATHAM Basic Information Time seen: Date & time 10/28/2009 19:15:00. History source: Patient. Arrival mode: Private vehicle. History limitation: None. Additional information:: Chief Complaint from Nursing Triage Note : Chief Complaint Description. 10/28/2009 19:15 STRATEGIC ADVISOR Chief Complaint Description c/o upper bilateral abdominal pain starting this morinng. Was seen this morning by her OB, was told it was false labor. C/o nausea starting this morning. Vomiting x2. History of Present Illness The patient presents with Pain across the upper abdomen off and on -tightening. Has also had some epigastric pain and nausea with 2 episodes of vomitting this AM. Saw Dr. Amaya this AM and felt that she was having [place]-Da Silva contractions. She also states that her sister has not been feeling well with ST that is not strep and upset stomach. Patient has not had much to eat or drink today due to thenausea.. Radiating pain: none. Status : 1, Para: 0 33 weeks. The relieving factor is none. Risk factors consist of none. Prior episodes: none. Therapy today: doctor's office visit. symptoms movement. Associated symptoms: nausea, vomiting and fever. Review of Systems Gastrointestinal symptoms: Negative except as documented in HPI. Health Status Allergies: . Allergic Reactions (all) Cats Medications: . Medication Orders Sodium Chloride 0.9% (Saline flush), 10 mL, IV, PRN, PRN Continuous Infusion Orders NS Continuous and 1000ml Bolus 1,000 mL, 1000 mL/hr, IV, Give 1000 mL saline bolus Prescriptions and Home Medications multivitamin, ( Multivitamins), 1 each, PO, Daily, 100 each Past Medical/ Family/ Social History Medical history: Medical history, No active or resolved past medical history items have been selected or recorded.33 week . Surgical history: Surgical history. No active procedure history items have been selected or recorded. Family history: Family history. No family history items have been selected or recorded. Social history: Alcohol use: Denies, Tobacco use: Denies, Drug use: Denies, Occupation: A student, Family/social situation: Lives with parent(s). Physical Examination Vital signs: Vital Signs, 10/28/2009 19:45 STRATEGIC ADVISOR Peripheral Pulse Rate 113 bpm HI Respiratory Rate 16 br/min Systolic Blood Pressure 116 mmHg Diastolic Blood Pressure 75 mmHg BP Location Left upper 10/28/2009 19:15 STRATEGIC ADVISOR Temperature Oral 37.6 DegC Peripheral Pulse Rate 113 bpm HI Respiratory Rate 16 br/min Systolic Blood Pressure 118 mmHg Diastolic Blood Pressure 81 mmHg Mean Arterial Pressure 93 mmHg BP Location Left upper Oxygen saturation Oxygen Therapy & Oxygenation Information. 10/28/2009 19:45 STRATEGIC ADVISOR Oxygen Therapy Room air SpO2 97 % 10/28/2009 19:15 STRATEGIC ADVISOR Oxygen Therapy Room air SpO2 95 % General: Alert. no acute distress. Skin: Warm. dry. pink. Neck: Supple Cardiovascular: Regular rate and rhythm Respiratory: Lungs are clear to auscultation. respirations are non-labored. Gastrointestinal: Soft. Tenderness: mild and epigastric. Guarding: negative. Rebound: negative. Bowel sounds: normal. Back: Nontender Musculoskeletal: Normal ROM. normal strength. Neurological: Alert and oriented to person, place, time, and situation. CN II- XII intact. Psychiatric: Cooperative. appropriate mood & affect. Medical Decision Making Results review:Lab results : Lab View. 10/28/2009 19:32 STRATEGIC ADVISOR UUA Source. 10/28/2009 19:32 STRATEGIC ADVISOR Hgb 12.7 gm/dL Hct 37.3 % WBC 9.5 K/mm3 RBC 4.24 M/mm3 MCV 87.8 fL MCH 30.0 pg MCHC 34.2 gm/dL MPV 8.7 fL RDW 12.2 % Platelet 271 K/mm3 Platelet Est Appears Normal Segs Man 84 % HI Band Man 6 % HI Lymph Man 09 % LOW Monocyte Man 1 % Eos Man 0 % LOW Basophil Man 0 % Differential? Manual Sodium Lvl 131 mmol/L LOW Potassium Lvl 4.2 mmol/L Chloride 102 mmol/L CO2 19 mmol/L LOW Glucose Fasting 84 mg/dL Creatinine 0.5 mg/dL BUN 7 mg/dL Calcium Lvl 9.4 mg/dL UA Color YELLOW UA Spec Grav 1.010 UA pH 7.0 UA Protein Negative UA Glucose Negative UA Ketones Negative UA Bili Negative UA Urobilinogen 0.2 UA Blood Negative UA Nitrite Negative UA Leuk Est Small UA WBC 5-10 UA RBC None Seen UA Bacteria Few UA Mucous Small UA Appear CLEAR UA Epi 20-30 UA Casts None Seen UA Crystals None Seen Impression and Plan gastroenteritis Calls-Consults -10/28/2009 21:00:00 , TALA JUAREZ MD, recommends Discussed patient symptoms and lab results. Patient is feeling better after her Zofran and the liter of fluids. heart tones are 150. She does not have any worse pain than when she was seen this AM. Dr Juarez felt that she is able to go home since she is feeling better, but if she should have and contractions, vag bleeding, continued fever or starts vomitting again she should follow up to [place] [facility] or clinic for further evaluation or to [place] [facility] if she feels she can not make it to [place]. . Discharge plan Condition: Improved, [place] better after the IV fluids and Zofran.. Dispositioned: Time 10/28/2009 21:30:00, To home. Patient was given the following educational materials: GASTROENTERITIS, Viral [6y-Adult]. Follow up with: In: 3 day(s),or sooner if needed, Dr Amaya. Counseled: Patient, Family, Regarding diagnosis, Regarding treatment plan, Regarding prescription. Source: HEALTH SYSTEM POWERCHART Document Id: [id number]} TEGIC ADVISOR Cain Flanagan R.N. - 10/28/2009 7:31 PM CST ED Treatments and Procedures ED Treatments and Procedures Entered On: 10/28/2009 19:32 STRATEGIC ADVISOR Performed On: 10/28/2009 19:31 STRATEGIC ADVISOR by CAIN GUPTA RN Peripheral IV Peripheral IV Assess/Intervention Grid Peripheral IV #1 IV Activity: Start Number of Attempts: 1 Date of Insertion: 10/28/2009 STRATEGIC ADVISOR IV Site: Antecubital Laterality: Left Catheter Size: 20 Catheter Type: Over the needle Site Condition: No complications Drainage Description: None CAIN GUPTA RN - 10/28/2009 19:31 STRATEGIC ADVISOR Source: [facility] [employer] Document Id: [id number] STRATEGIC ADVISOR!13 TEGIC ADVISOR documented in this encounter Miscellaneous Notes Miscellaneous - Cain Flanagan R.N. - 10/28/2009 9:26 PM CST Valuables/Belongings Valuables/Belongings Entered On: 10/28/2009 21:26 STRATEGIC ADVISOR Performed On: 10/28/2009 21:26 STRATEGIC ADVISOR by CAIN GUPTA RN Valuables/Belongings Room Orientation/Facility Policy Reviewed: Yes Belongings Sent Home With: patient and family Home Medication Disposition: None brought in with patient CAIN GUPTA RN - 10/28/2009 21:26 STRATEGIC ADVISOR Source: [facility] MediWoundCHART Document Id: [id number] STRATEGIC ADVISOR!5 TEGIC ADVISOR Miscellaneous - Cain Flanagan R.N. - 10/28/2009 6:58 PM CST Facility Charge Ticket Facility Charge Ticket Entered On: 10/28/2009 21:26 STRATEGIC ADVISOR Performed On: 10/28/2009 18:58 STRATEGIC ADVISOR by CAIN GUPTA RN Facility Charge TVL Level for Facility Charge Ticket: Level 4 Mode of Arrival ED: Private vehicle Lynx Mode of Arrival Interpreted: Standard Lynx Process Management: None Lynx Order Management: Lab tests 30 Minutes Critical Care: No Lynx Nursing Assessment: Triage and 3-5 nursing assessments Lynx Disposition: Discharge Lynx Total Points with Diagnosis Control: 9 Lynx Visit Level: 26401 Level 4 CAIN GUPTA RN - 10/28/2009 21:26 STRATEGIC ADVISOR Source: [facility] POWERCHART Document Id: [id number] STRATEGIC ADVISOR!12 TEGIC ADVISOR documented in this encounter Plan of Treatment Not on filedocumented as of this encounter Visit Diagnoses Not on filedocumented in this encounter
--- OUTSIDE RECORDS SUMMARY | 2022-07-09 20:46 | XMS_ITS | Encounter Summary ---
:1990 Author Organization [facility] Address [address] [place] [address] Care Team Providers Name Role Phone Unavailable Primary Care Provider Unavailable Encounter Details Date Type Department Care Team Description 09/06/2009 Hospital Encounter [facility]X [facility] ED Provider, [...] you attend latter day or Never 2020 zoroastrianism services? Do you [...] documented as of this encounter Discharge Summaries Zoe Fregoso R.N. - 09/06/2009 4:50 PM CST ED Discharge Instructions [address] [address] Name: NORAH GIMENEZ Date of : 1990 12:00 AM Reason For Visit: Pelvic pain - >20 wks ; Pelvic pain - >20 wks ; Groin pain; Groin pain; LEFT SIDE PAIN Visit Date: 09/06/2009 3:44 PM FIN: Current Date: 09/06/2009 16:50:42 Address: [address] [facility] Lisandra Aguero [place] [id number] Primary Care Provider: VIJAY BEVERLY MD IMPORTANT: [facility] would like to thank you for allowing [...] Follow-Up Instructions: With: Address: When: VIJAY BEVERLY [address] [place] [phone] phone, ROBLOX (1) Within As needed Comments: keep appointment for next week if not follow up sooner if any issues arise Patient Education Materials: BLADDER INFECTION, Female [Adult] A bladder infection (cystitis or UTI) usually causes a constant urge to urinate and a burning when passing urine. Urine may be cloudy, smelly or dark. There may be pain in the lower abdomen. A bladder infection occurs when bacteria from the vaginal area enter the bladder opening (urethra). This can occur from sexual intercourse, wearing tight clothing, dehydration and other factors. HOME CARE: 1) Drink lots of fluids (at least 6-8 glasses a day, unless you must restrict fluids for other medical reasons). This will force the medicine into your urinary system and flush the bacteria out of yourbody. 2) Avoid sexual intercourse until your symptoms are gone. 3) Avoid caffeine, alcohol and spicy foods. These can irritate the bladder. 4) A bladder infection is treated with antibiotics. You may also be given Pyridium (generic = phenazopyridine) to reduce the burning sensation. This medicine will cause your urine to become a bright orange color. The orange urine may stain clothing. Wear a pad or panty-liner to protect clothing. PREVENTING FUTURE INFECTIONS: 1) Always wipe from front to back after a bowel movement. 2) Keep the genital area clean and dry. 3) Drink plenty of fluids each day to avoid dehydration. 4) Both sexual partners should wash before intercourse. 5) Urinate right after intercourse to flush out the bladder. 6) Wear cotton underwear and cotton-lined panty hose; avoid tight-fitting pants. 7) Limit your intake of caffeine, alcohol and spicy foods. 8) If you are on control pills and are having frequent bladder infections, discuss with your doctor. FOLLOW UP: Return to this facility or se e your doctor if ALL symptoms are not gone after three daysof treatment. RETURN PROMPTLY or contact your doctor if any of the following occur: -- Fever over 100.0??F (37.8??C) -- No improvement by the third day of treatment -- Increasing back pain -- Repeated vomiting; unable to keep medicine down -- Weakness, dizziness or fainting -- Vaginal discharge -- Pain, redness or swelling in the labia (outer vaginal area) Prescriptions & Home Medications: Medication/Strength Dose Route Frequency Indications/Special Instructions/Comments cephalexin (Keflex 500 mg oral capsule) 1 cap(s) Oral four times a day multivitamin, ( Multivitamins) 1 each Oral once a day Attention: If you have any medications at home that are not on this list, please contact your provider for clarification. Patient Visit Summary: NORAH GIMENEZ has been given the following list of patient education materials, prescriptions, Home Medications and follow-up instructions: Follow-up Instructions: With: Address: When: VIJAY BEVERLY [address] [place] [phone] phone, ROBLOX (Alg[employer]olve) Within As needed Comments: keep appointment for next week if not follow up sooner if any issues arise Patient Education Materials: URINARY TRACT INFECTION (Cystitis), Female (Adult) Prescriptions & Home Medications: Medication/Strength Dose Route Frequency Indications/Special Instructions/Comments cephalexin (Keflex 500 mg oral capsule) 1 cap(s) Oral four times a day multivitamin, ( Multivitamins) 1 [...] to take those medications. NORAH GIMENEZ or designee has reviewed the home medications you have [...] nurse or physician. Patient Signature or Responsible Alliance Party Date/Time Provider Signature Date/Time This document has images extracted. Please consider using H-art (WPP) for all your patient education needs. Source: [facility] POWERCHART Document Id: [id number] Electronically signed by Maycol [facility] Erp Implementation Consultant [id number] at 03/01/2017 11:26 AM CDT Zoe Fregoso, RWanderN. - 09/06/2009 4:50 PM CST ED Depart Summary [facility] Emergency Department / Urgent Care Clinical Discharge Summary PERSON INFORMATION Name NORAH GIMENEZ Age 19 Years 1990 12:00 AM Sex Female Language Hong Konger PCP VIJAY BEVERLY MD Marital Status Single Visit Id Visit Reason Pelvic pain - >20 wks ; Pelvic pain - >20 wks ; Groin pain; Groinpain; LEFT SIDE PAIN Specialty Enc Type Emergency Med Service Emergency Medicine Referred by Track Group [facility] ED/UC Discharge 09/06/2009 4:45 PM Tracking Id [id number] Checkout 09/06/2009 4:50 PM Checkin 09/06/2009 3:44 PM Acuity 4 -Less Urgent Dispo Type Discharged to Home or Self Care Arrival 09/06/2009 3:44 PM Reg Status Complete LOS 000 01:06 Address: [facility] 09[address] [facility] [place] [id number] Comment: PROVIDER INFORMATION Provider Role Assigned Unassigned ZOE FREGOSO LIME KILN WORKER Nurse 09/06/2009 4:13 PM MARY WHITING ED Provider 09/06/2009 4:13 PM VITALS INFORMATION Vital Sign Triage Latest Temp Oral 36.6 DegC 36.6 DegC Temp Axillary Temp Core 02 Sat Respiratory Rate 18 br/min 18 br/min Pulse Rate Peripheral Pulse Rate 82 bpm 92 bpm Apical Heart Rate Blood Pressure 127 mmHg / 75 mmHg 116 mmHg / 69 mmHg Comment: DIAGNOSIS Urinary tract infection 599.0 Comment: ORDERS INFORMATION Start Time Order Type Status Stop Time Provider 09/06/2009 3:50 PM Urinalysis with Microscopic if Indicated Laboratory Completed 09/06/2009 4:14 PM MARY WHITING 09/06/2009 3:50 PM UR Microscopic Laboratory Completed 09/06/2009 4:23 PM MARY WHITING MEDICAL INFORMATION Allergy Info: Cats Medication List: Medication/Strength Dose Route Frequency Indications/Special Instructions/Comments cephalexin (Keflex 500 mg oral capsule) 1 cap(s) Oral four times a day multivitamin, ( Multivitamins) 1 each Oral once a day Comment: DISCHARGE INFORMATION Discharge Disposition: Discharged to Home or Self Care Discharge Location: DEPART REASON INCOMPLETE INFORMATION PATIENT EDUCATION INFORMATION Instructions: URINARY TRACT INFECTION (Cystitis), Female (Adult) Follow up: With: Address: When: VIJAY BEVERLY [address] [place] [phone] phone, fixed, Create (1) Within As needed Comments: keep appointment for next week if not follow up sooner if any issues arise PHYS DOC NOTES Patient: NORAH GIMENEZ - [place] MRN Age: 19 years Sex: Female : 1990 Author: MARY WHITING Basic Information Additional information:: Chief Complaint from Nursing Triage Note : Chief Complaint Description. 09/06/2009 15:55 CHEMICALS DISTILLER Chief Complaint Description pt is 6month s and developed left groin pain 1 week ago and is getting worse History of Present Illness The patient presents withLeft sided groin pain. The onset was 7 days ago. The course/duration of symptoms is fluctuating in intensity. Status : 1, Para: 0 26 weeks. Contractions: none. movement: present. Character of pain: sharp degree of pain: moderate. Bleeding: none. Discharge: none. Exacerbating factors consist of movement position. The relieving factor is position. Risk factors consist of none. Therapy today: none. Prior episodes: none. Associated symptoms: none. Additional history: Patient reports having an occurence of blurred vision earlier today...that lasted only a few seconds and that her eyes were very teary...she states her vision has since returned back to normal. Review of Systems Constitutional symptoms: no fever no chills. Gastrointestinal symptoms: no abdominal pain no nausea, no vomiting, no diarrhea, no constipation. Genitourinary symptoms: Pelvic pain no dysuria, no hematuria, no vaginal bleeding, no vaginal discharge, no excessive urination, no urinary incontinence, no urinary retention, no nocturia. Health Status Allergies: . Allergic Reactions (all) Cats Medications: . Prescriptions and Home Medications multivitamin, ( Multivitamins), [...] recorded. Physical Examination Vital signs: Vital Signs, 09/06/2009 15:55 CHEMICALS DISTILLER Temperature Oral 36.6 DegC LOW Peripheral Pulse Rate 82 bpm Respiratory Rate 18 br/min Systolic Blood Pressure 127 mmHg Diastolic Blood Pressure 75 mmHg Mean Arterial Pressure 92 mmHg BP Location Left upper Oxygen saturation Oxygen Therapy & Oxygenation Information. 09/06/2009 15:55 CHEMICALS DISTILLER Oxygen Therapy Room air SpO2 98 % General: Alert. no acute distress. Skin: Warm. dry. pink. Head: Normocephalic. atraumatic. Neck: Supple. trachea midline. no tenderness. Eye: Pupils are equal, round and reactive to light. extraocular movements are intact. normal conjunctiva. vision unchanged. Ears, nose, mouth and throat: Tympanic membranes clear. Oral mucosa moist. No pharyngeal erythema orexudate. Cardiovascular: Regular rate and rhythm. No murmur. Normal peripheral perfusion. Respiratory: Lungs are clear to auscultation. respirations are non-labored. breath sounds are equal. Gastrointestinal: Soft. Nontender. Non distended. gravid. Genitourinary: Exam deferred Back: Nontender Musculoskeletal: increased pain during L hip flexion Neurological: Alert and oriented to person, place, time, and situation. No focal neurological deficit observed. Lymphatics: No lymphadenopathy Medical Decision Making UrinalysisWhite blood cells positive. Bacteria positive. Heart RateBy Doppler 150 bpm. NotesBP's remained 120-115/ 70-60 here in the ED. Impression and Plan Diagnosis Urinary tract infection 599.0 (ICD9 599.0, Discharge, Emergency medicine, Medical) Groin pain Discharge plan Condition: Stable. Dispositioned: Time 09/06/2009 16:39:00, To home. Prescriptions: Prescription Director Of Sleep, Pharmacy: Keflex 500 mg oral capsule (Ordered): 1 cap(s), PO, 4xDay, 28 cap(s)Tylenol 500 mg as needed for pain. Patient was given the following educational materials: URINARY TRACT INFECTION (Cystitis), Female (Adult). Follow up with: VIJAY BEVERLY Within As needed keep appointment for next week if not follow up sooner if any issues arise . Source: [facility] POWERCHART Document Id: [id number] Electronically signed by Maycol, [facility] Erp Implementation Consultant [id number] at 03/01/2017 11:26 AM CDT documented in this encounter Nursing Notes Sandra Salguero RWanderNWander - 09/06/2009 3:55 PM CST ED Primary Assessment ED Primary Assessment Entered On: 09/06/2009 15:59 CHEMICALS DISTILLER Performed On: 09/06/2009 15:55 CHEMICALS DISTILLER by SANDRA SALGUERO RN Reason For Visit Diagnoses(Active) Groin pain Date: 09/06/2009 15:55 CHEMICALS DISTILLER ; Diagnosis Type: Reason For Visit ; Confirmation: Confirmed ;Classification: Nursing ; Clinical Service: Emergency medicine ; Code: Patient Care ; Probability: 0 Triage Chief Complaint Description: pt is 6month s and developed left groin pain 1 week ago and isgetting worse Information Given By: Patient Accompanied By: Alone Mode of Arrival ED: Private vehicle Track: Medical Languages: Hong Konger, Rounder And Backer called: No Pain Symptoms: Yes Vital Signs Assessed: Yes GCS Assessed: Yes GCS Assessed: Yes SANDRA SALGUERO RN - 09/06/2009 15:55 CHEMICALS DISTILLER Pain Pain Assessment Grid Pain 1 Location: Groin Laterality: Left Intensity: 7 SANDRA SALGUERO RN - 09/06/2009 15:55 CHEMICALS DISTILLER Vital Signs Temperature Oral: 36.6DegC(Converted to: 97.9DegF) (LOW) Peripheral Pulse Rate: 82bpm Respiratory Rate: 18br/min Systolic Blood Pressure: 127mmHg Diastolic Blood Pressure: 75mmHg NIBP Mean: 92mmHg BP Location: Left upper extremity SpO2: 98% Oxygen Therapy: Room air SANDRA SALGUERO RN - 09/06/2009 15:55 CHEMICALS DISTILLER ED Physician Notification Time ED Physician Notification Time: 09/06/2009 15:57 CHEMICALS DISTILLER JOSE M SANDRA Mirza FAUST - 09/06/2009 15:55 CHEMICALS DISTILLER SONNY SONNY Level 1: No SONNY Level 2: No SONNY Level 3: One LULISANDRA KAT Mirza FAUST - 09/06/2009 15:55 CHEMICALS DISTILLER Allergy Latex Screening: No SANDRA SALGUERO CHRISTIANNE - 09/06/2009 15:55 CHEMICALS DISTILLER Allergies (Active) Cats Estimated Onset Date: Unspecified ; Comment: has allergy to cats ; Created By: CLIVE MACKAY LPN; Reaction Status: Active ; Category: Other ; Substance: Cats ; Type: Allergy ; Updated By: RAYMOND MACKAY LPN; Reviewed Date: 04/25/2009 15:44 CDT Immunizations Immunizations Current: Yes JOSE M SANDRA Mirza FAUST - 09/06/2009 15:55 CHEMICALS DISTILLER Respiratory Airway: Patent Respirations: Unlabored Respiratory Pattern: Regular JOSE M SANDRA Mirza FAUST - 09/06/2009 15:55 CHEMICALS DISTILLER Cardiovascular Heart Rhythm: Regular Skin Color: Normal for ethnicity Skin Description: Dry Skin Temperature: Warm JOSE M SANDRA Mirza FAUST - 09/06/2009 15:55 CHEMICALS DISTILLER Neurological Level of Consciousness: Alert Orientation: Oriented x 3 Characteristics of Speech: Clear Neuro Patient Stated Symptoms: Dizziness Gait: Steady Swallowing Difficulty/Aspiration Risk: None JOSE M SANDRA Mirza FAUST - 09/06/2009 15:55 CHEMICALS DISTILLER ED Psychosocial Affect/Behavior: Calm, Cooperative, Appropriate Domestic Concerns: None JOES M SANDRA Mirza FAUST - 09/06/2009 15:55 CHEMICALS DISTILLER Gastrointestinal Nutrition ED: Adequate JOSE M SANDRAGina Blue RN - 09/06/2009 15:55 CHEMICALS DISTILLER /OB Assessment Patient Stated Symptoms: None Urine Description: Clear Bladder Distention: Absent Sexually Active: No : 1 Para: 0 Heart Rate: 152bpm Status: Confirmed positive Last Menstrual Period: 03/01/2009 CDT JOSE M SANDRAGina Blue RN - 09/06/2009 15:59 CHEMICALS DISTILLER Musculoskeletal Fall Prevention Education Provided: SANDRA VALDERRAMA RN - 09/06/2009 15:55 CHEMICALS DISTILLER Musculoskeletal Abnormality Ultragrid Musculoskeletal #1 Location: left groin pain Comment: hurtrs when moving and walking SANDRA SALGUERO RN - 09/06/2009 15:55 CHEMICALS DISTILLER Source: [facility] POWERCHART Document Id: [id number] CHEMICALS DISTILLER!11 ICALS DISTILLER documented in this encounter ED Notes Zoe Fregoso R.N. - 09/06/2009 4:48 PM CST ED Disposition Summary ED Disposition Summary Entered On: 09/06/2009 16:49 CHEMICALS DISTILLER Performed On: 09/06/2009 16:48 CHEMICALS DISTILLER by ZOE FREGOSO LIME KILN WORKER Disposition Summary Accompanied By: Mother Mode of Discharge: Ambulatory Transportation: Private vehicle Discharge From ED With: Home Med List Patient Status at Discharge from ED: Unchanged ZOE FREGOSO RN - 09/06/2009 16:48 CHEMICALS DISTILLER Source: [employer] Document Id: [id number] CHEMICALS DISTILLER!7 ICALS DISTILLER Conversion, Historical Provider Ser - 09/06/2009 4:34 PM CST Pelvic pain - >20 wks Patient: ONRAH GIMENEZ - [place] MRN Age: 19 years Sex: Female : 1990 Author: MARY WHITING Basic Information Additional information:: Chief Complaint from Nursing Triage Note : Chief Complaint Description. 09/06/2009 15:55 CHEMICALS DISTILLER Chief Complaint Description pt is 6month s and developed left groin pain 1 week ago and is getting worse History of Present Illness The patient presents withLeft sided groin pain. The onset was 7 days ago. The course/duration of symptoms is fluctuating in intensity. Status : 1, Para: 0 26 weeks. Contractions: none. movement: present. Character of pain: sharp degree of pain: moderate. Bleeding: none. Discharge: none. Exacerbating factors consist of movement position. The relieving factor is position. Risk factors consist of none. Therapy today: none. Prior episodes: none. Associated symptoms: none. Additional history: Patient reports having an occurence of blurred vision earlier today...that lasted only a few seconds and that her eyes were very teary...she states her vision has since returned back to normal. Review of Systems Constitutional symptoms: no fever no chills. Gastrointestinal symptoms: no abdominal pain no nausea, no vomiting, no diarrhea, no constipation. Genitourinary symptoms: Pelvic pain no dysuria, no hematuria, no vaginal bleeding, no vaginal discharge, no excessive urination, no urinary incontinence, no urinary retention, no nocturia. Health Status Allergies: . Allergic Reactions (all) Cats Medications: . Prescriptions and Home Medications multivitamin, ( Multivitamins), [...] recorded. Physical Examination Vital signs: Vital Signs, 09/06/2009 15:55 CHEMICALS DISTILLER Temperature Oral 36.6 DegC LOW Peripheral Pulse Rate 82 bpm Respiratory Rate 18 br/min Systolic Blood Pressure 127 mmHg Diastolic Blood Pressure 75 mmHg Mean Arterial Pressure 92 mmHg BP Location Left upper Oxygen saturation Oxygen Therapy & Oxygenation Information. 09/06/2009 15:55 CHEMICALS DISTILLER Oxygen Therapy Room air SpO2 98 % General: Alert. no acute distress. Skin: Warm. dry. pink. Head: Normocephalic. atraumatic. Neck: Supple. trachea midline. no tenderness. Eye: Pupils are equal, round and reactive to light. extraocular movements are intact. normal conjunctiva. vision unchanged. Ears, nose, mouth and throat: Tympanic membranes clear. Oral mucosa moist. No pharyngeal erythema orexudate. Cardiovascular: Regular rate and rhythm. No murmur. Normal peripheral perfusion. Respiratory: Lungs are clear to auscultation. respirations are non-labored. breath sounds are equal. Gastrointestinal: Soft. Nontender. Non distended. gravid. Genitourinary: Exam deferred Back: Nontender Musculoskeletal: increased pain during L hip flexion Neurological: Alert and oriented to person, place, time, and situation. No focal neurological deficit observed. Lymphatics: No lymphadenopathy Medical Decision Making UrinalysisWhite blood cells positive. Bacteria positive. Heart RateBy Doppler 150 bpm. NotesBP's remained 120-115/ 70-60 here in the ED. Impression and Plan Diagnosis Urinary tract infection 599.0 (ICD9 599.0, Discharge, Emergency medicine, Medical) Groin pain Discharge plan Condition: Stable. Dispositioned: Time 09/06/2009 16:39:00, To home. Prescriptions: Prescription Director Of Sleep, Pharmacy: Keflex 500 mg oral capsule (Ordered): 1 cap(s), PO, 4xDay, 28 cap(s)Tylenol 500 mg as needed for pain. Patient was given the following educational materials: URINARY TRACT INFECTION (Cystitis), Female (Adult). Follow up with: VIJAY BEVERLY Within As needed keep appointment for next week if not follow up sooner if any issues arise . Source: [facility] Flat.to Document Id: {[id number]} documented in this encounter Miscellaneous Notes Miscellaneous - Zoe Fregoso R.N. - 09/06/2009 4:49 PM CST Adult Pain Assessment Adult Pain Assessment Entered On: 09/06/2009 16:49 CHEMICALS DISTILLER Performed On: 09/06/2009 16:49 CHEMICALS DISTILLER by ZOE FREGOSO RN Pain Pain Assessment Grid Pain 1 Location: Groin Laterality: Left Intensity: 7 ZOE FREGOSO RN - 09/06/2009 16:49 CHEMICALS DISTILLER Source: [facility] [employer] Document Id: [id number] CHEMICALS DISTILLER!7 ICALS DISTILLER Miscellaneous - Zoe Fregoso R.N. - 09/06/2009 4:49 PM CST Valuables/Belongings Valuables/Belongings Entered On: 09/06/2009 16:49 CHEMICALS DISTILLER Performed On: 09/06/2009 16:49 CHEMICALS DISTILLER by ZOE FREGOSO RN Valuables/Belongings Valuables/Belongings Grid Valuables with Patient Clothes, Patient Valuables: Jacket, Pants, Shirt, Shoes, Undergarments Electronic Devices: Cell phone ZOE FREGOSO RN - 09/06/2009 16:49 CHEMICALS DISTILLER Source: [facility] Document Id: [id number] CHEMICALS DISTILLER!6 ICALS DISTILLER Miscellaneous - Zoe Fregoso R.N. - 09/06/2009 3:44 PM CST Facility Charge Ticket Facility Charge Ticket Entered On: 09/06/2009 16:50 CHEMICALS DISTILLER Performed On: 09/06/2009 15:44 CHEMICALS DISTILLER by ZOE FREGOSO RN Facility Charge TVL Level for Facility Charge Ticket: Level 4 Mode of Arrival ED: Private vehicle Lynx Mode of Arrival Interpreted: Standard Lynx Process Management: None Lynx Order Management: Lab tests 30 Minutes Critical Care: No Lynx Nursing Assessment: Triage and 1-2 nursing assessments Lynx Disposition: Discharge Lynx Total Points with Diagnosis Control: 8 Lynx Visit Level: 88041 Level 3 ZOE FREGOSO RN - 09/06/2009 16:49 CHEMICALS DISTILLER [facility] Document Id: [id number] CHEMICALS DISTILLER!12 ICALS DISTILLER documented in this encounter Plan of Treatment Not on filedocumented as of this encounter Visit Diagnoses Not on filedocumented in this encounter
--- OUTSIDE RECORDS SUMMARY | 2022-07-09 20:46 | XMS_ITS | Encounter Summary ---
:1990 Author Organization [facility] Address [address] [place] [address] Care Team Providers Name Role Phone Unavailable Primary Care Provider Unavailable Encounter Details Date Type Department Care Team Description 11/11/2009 Hospital Encounter [facility] [...] you attend latter day or Never 2020 rastafari services? Do you belong to any clubs [...]
--- OUTSIDE RECORDS SUMMARY | 2022-07-09 20:46 | XMS_ITS | Encounter Summary ---
:1990 Author Organization [facility] Address [address] [place] [address] Care Team Providers Name Role Phone Unavailable Primary Care Provider Unavailable Encounter Details Date Type Department Care Team Description 08/20/2009 Hospital Encounter [facility]X [facility] [...] or relatives? How often do you attend taoism or Never 2020 episcopalian services? Do you belong to any clubs or No 06/25/2021 organizations such as taoism groups, unions, fraternal or athletic groups, or [...]
--- OUTSIDE RECORDS SUMMARY | 2022-07-09 20:46 | XMS_ITS | Encounter Summary ---
:1990 Author Organization [facility] Address [address] [place] [address] Care Team Providers Name Role Phone Unavailable Primary Care Provider Unavailable Encounter Details Date Type Department Care Team Description 09/30/2009 Hospital Encounter [facility]X [facility] [...] do you attend caodaism or Never 2020 caodaism services? Do you belong to any clubs [...]
--- OUTSIDE RECORDS SUMMARY | 2022-07-09 20:46 | XMS_ITS | Encounter Summary ---
:1990 Author Organization [facility] Address [address] [place] [address] Care Team Providers Name Role Phone Unavailable Primary Care Provider Unavailable Encounter Details Date Type Department Care Team Description 01/07/2010 Hospital Encounter [facility]X [facility] Vijay Huff M.D. Social History Tobacco Use Types [...] do you attend holiness or Never 2020 rastafari services? Do you [...] as of this encounter Progress Notes Vijay Larson M.D. - 01/07/2010 12:00 AM CDT [id number] HISTORY OF PRESENT ILLNESS Barbra is here for a 6-week postoperative checkup after a section done on November 26. She is not and she has had no difficulty with her postoperative recovery. VITAL SIGNS BLOOD PRESSURE: 112/72 WEIGHT: 94 kg, which is stable from her December 12 visit, but a 13-kg decrease from her last weight. PHYSICAL EXAM GENERAL: Well-nourished, well-developed female. ABDOMEN: Her abdominal incision is healing well with no redness, induration or tenderness. PELVIS: Vulva and vagina without lesions. A Pap smear was not done due to the patient's age. A bimanual exam showed the uterus to be firm, mobile and nontender. The adnexa were without masses and tenderness. IMPRESSION / REPORT / PLAN 1) Normal 6-week postoperative checkup. The recommendations, contraceptive alternatives were discussed with the patient, IUD, Implanon, Depo-Provera or NuvaRing discussed. The patient was leaning toward the IUD, but now will consider other options and will discuss these with her family. I have recommended that, until she decides what she wants to do, she should either abstain or use barrier methods and, finally, she should not have an IUD put in until 8 weeks . The patient will consider her options and get back with us. Otherwise, she may resume normal activity. Vijay Larson M.D. cla Electronically Signed By:VIJAY LARSON MD On 01/09/2010 01:53 PM Source: [facility] MHSDOLBEYNONRADSYS Document Id: [id number] documented in this encounter Miscellaneous Notes Miscellaneous - Genevieve Crouch - 01/07/2010 10:21 AM CDT Adult Pipe Organ Tuner And Repairer Intake/History Adult Pipe Organ Tuner And Repairer Intake/History Entered On: 01/07/2010 10:24 CDT Performed On: 01/07/2010 10:21 CDT by GENEVIEVE CROUCH Intake Chief Complaint: 6 week pp exam Peripheral Pulse Rate: 72bpm Respiratory Rate: 16br/min Systolic Blood Pressure: 112mmHg Diastolic Blood Pressure: 72mmHg NIBP Mean: 85mmHg BP Location: Left upper extremity Actual Weight: 94.000kg(Converted to: 207.235lb) Dosing Weight Clinic: 94.00kg GENEVIEVE CROUCH - 01/07/2010 10:21 CDT Subjective Pain Symptoms: No GENEVIEVE CROUCH - 01/07/2010 10:21 CDT Dependent Habits Tobacco Use/Currently Using: Deja GENEVIEVE CROUCH - 01/07/2010 10:21 CDT Allergies Allergies (Active) Cats Estimated Onset Date: Unspecified ; Comment: has allergy to cats ; Created By: CLIVE MACKAY LPN; Reaction Status: Active ; Category: Other ; Substance: Cats ; Type: Allergy ; Updated By: RAYMOND MACKAY LPN; Reviewed Date: 04/25/2009 15:44 CDT Source: [facility] N(i)² Document Id: [id number] CDT!15 documented in this encounter Plan of Treatment Not on filedocumented as of this encounter Visit Diagnoses Not on filedocumented in this encounter
--- OUTSIDE RECORDS SUMMARY | 2022-07-09 20:46 | XMS_ITS | Encounter Summary ---
:1990 Author Organization [facility] Address [address] [place] [address] Care Team Providers Name Role Phone Unavailable Primary Care Provider Unavailable Encounter Details Date Type Department Care Team Description 2010 Hospital Encounter [facility]X [facility] Provider, Ct lorene Social History Tobacco Use Types Packs/Day Years [...] do you attend protestant or Never 2020 druze services? Do you [...] Progress Notes Conversion, Historical Provider Ser - 2010 2:01 PM CDT EC DATE OF SERVICE: 2010 REASON FOR VISIT Patient wants a test. HISTORY OF PRESENT ILLNESS Patient is an 20-year-old female who presents to urgent care with request to have a test. She had her IUD taken out, a Mirena, by OPERATIONS COORDINATOR doctor in [place] on June 17, 2010, because it was giving her increased cramping and heavier periods. She got her period on June 20 and started her oral control on June 24. She has not had her period since that time and she just feelskind of nauseous like she did when she was with her first child. She does have a history ofanxiety as well. PAST, FAMILY, AND SOCIAL HISTORY Reviewed, reconciled and listed on the chart. MEDICATIONS Reviewed, reconciled and listed on the chart. ALLERGIES Reviewed, reconciled and listed on the chart. REVIEW OF SYSTEMS As per history of present illness. EXAMINATION General appearance: Alert and oriented female in no acute distress. Vital signs: Temperature 37. Heart rate 84. Respirations 20. Blood pressure 122/70. No physical examination was done on todays visit. DIAGNOSTIC DATA Serum HCG was negative. IMPRESSION/REPORT/PLAN Negative test. I advised patient to continue with her oral control as instructed by the OPERATIONS COORDINATOR physician and she should not miss any days of the control pill to avoid future . RLW:viola Doc#: [id number] Electronically Signed By:SHAMAR GRAHAM PA-C On 07/11/2010 10:50 AM Source: [facility] ISJDICTAPHONESYS Document Id: [id number] documented in this encounter Miscellaneous Notes Miscellaneous - Conversion, Historical Provider Ser - 2010 3:29 PM CDT Ambulatory Patient Summary [facility] - [address] [address] Visit Information Name: AMMY NORAH MUKESH Current Date: 2010 15:29:29 Primary Care Provider: GINNY MALDONADO MD Your [...] 1 year Females Age 15-24 05/09/2010 05/09/2011 Vaccine: Tetanus every 10 years 2010 Immunization to help prevent you from getting the seriousdisease Tetanus (Lockjaw). Your Upcoming Appointments Date Time Location Reason Provider 07/15/2010 09:30 [facility] DEPRESSION/Iveth Montgomery Your Goals/Additional instructions: Source: [facility] POWERCHART Document Id: [id number] Miscellaneous - Conversion, Historical Provider Ser - 2010 3:29 PM CDT Ambulatory Depart Summary [facility] - [address] [id number] Visit Information Name: AMMY NORAHJOSEY MAYORGA Current Date: 2010 15:29:28 Primary Care Provider: GINNY MALDONADO MD NORAH [...] each Oral once a day Additional Information: Yes - Current list of reconciled medications is provided and explained to the patient and/or family, guardian/caregiver. Source: [facility] POWERCHART Document Id: [id number] Miscellaneous - Conversion, Historical Provider Ser - 2010 2:29 PM CDT Adult Linen Checker Intake/History Adult Linen Checker Intake/History Entered On: 2010 14:34 CDT Performed On: 2010 14:29 CDT by CHEYANNE BRYAN LPN Intake Chief Complaint: wants test Onset of Symptoms: missed one month's period Ambulatory Intake Additional Information: dr jordan cormier said chance of pg after uid taken out Temperature Core: 37.0C(Converted to: 98.6DegF) Peripheral Pulse Rate: 84/min Respiratory Rate: 20/min Systolic Blood Pressure: 122mmHg Diastolic Blood Pressure: 70mmHg NIBP Mean: 87mmHg BP Location: Right upper extremity CHEYANNE BRYAN LPN - 2010 14:29 CDT Subjective Pain Symptoms: Yes CHEYANNE BRYAN LPN - 2010 14:29 CDT Pain Pain Assessment Grid Pain 1 Location: Abdomen Laterality: Bilateral Time Pattern: Constant Onset: Gradual Quality: Heavy CHEYANNE BRYAN BRENNA - 2010 14:29 CDT Dependent Habits Tobacco Use/Currently Using: No Exposure to Tobacco Smoke: Lives with someone who smokes CHEYANNE BRYAN BRENNA - 2010 14:29 CDT Allergies Allergies (Active) Cats Estimated Onset Date: Unspecified ; Comment: has allergy to cats ; Created By: CLIVE MACKAY LPN; Reaction Status: Active ; Category: Other ; Substance: Cats ; Type: Allergy ; Updated By: RAYMOND MACKAY LPN; Reviewed Date: 2010 14:28 CDT [facility] Document Id: [id number] CDT!25 documented in this encounter Plan of Treatment Not on filedocumented as of this encounter Visit Diagnoses Not on filedocumented in this encounter
--- OUTSIDE RECORDS SUMMARY | 2022-07-09 20:46 | XMS_ITS | Encounter Summary ---
:1990 Author Organization [facility] Address [address] [place] [address] Care Team Providers Name Role Phone Unavailable Primary Care Provider Unavailable Encounter Details Date Type Department Care Team Description 05/21/2010 [facility] P[facility]. [address] [place] [phone] (Wo rk) Social History Tobacco Use [...] do you attend catholic or Never 2020 buddhist services? Do you [...] encounter Progress Notes Vijay Morales P.A.-C. - 05/21/2010 4:43 PM CDT EC DATE OF SERVICE: 05/21/2010 REASON FOR VISIT Red, swollen eyes. HISTORY OF PRESENT ILLNESS Patient presents to urgent care stating that she has had red, swollen eyes over the past several days. She attempted xhio-ldn-xnsespw eyedrops with little success. She states her eyes become quite swollen, itchy with foreign body sensations bilaterally. States she has had increased tearing from both eyes. Also she has been sneezing, has rhinorrhea. She does have a history of allergies to cats. Statesit feels like a similar allergy attack. She denies any decrease in her vision. ALLERGIES No medication allergies. EXAMINATION Vital signs have been taken and noted in nurses notes. Patient is awake, alert and oriented. She is sneezing repetitively. HEENT: Ear canals are patent. Tympanic membranes are pale in color, no effusion. Eyes: Right upper, lower eyelids are slightly swollen, conjunctivae is inflamed, sclerae is slightly injected. Left eye, not as dramatic as the right but similar exam. Pupils equal and reactive to 4 mm. Extraocular movements are intact. Oropharynx: [place], moist mucosa. Nares: Clear rhinorrhea bilaterally. Nasal mucosa, discolored, boggy in appearance. Lung sounds clear bilaterally. IMPRESSION/REPORT/PLAN Allergic conjunctivitis. Placed patient on Patanol eyedrops, one drop each eye twice a day for the next 7 days. Also encouraged patient to get vkbd-ugz-xlekmod loratadine 10 mg, one per day, especially during allergy season. Cold packs to both eyes to help reduce the swelling. If she develops any decrease in vision she shouldreturn to the emergency department. LOURDES:raina Doc#: [id number] Electronically Signed By:VIJAY MORALES PA-C On 05/26/2010 07:58 AM Source: [facility] ISJDICTAPHONESYS Document Id: [id number] documented in this encounter Miscellaneous Notes Miscellaneous - Vijay Morales P.A.-C. - 05/21/2010 5:05 PM CDT Ambulatory Depart Summary [facility] - [address] [address] Visit Information Name: BARBRA GIMENEZ Current Date: 05/21/2010 17:05:01 Primary Care Provider: GINNY MALDONADO MD BARBRA GIMENEZ has been given the following list of medications: Your Medications It is important to take your medications as directed. Use a pill box or chart to help remind you to take your medications. Please let your doctor or nurse know if you have problems taking your medications. Medication/Strength Dose Route Frequency Indications/Special Instructions/Comments olopatadine ophthalmic (Patanol 0.1% ophthalmic solution) 1 drop(s) Eyes(Both) two times a day levonorgestrel (Mirena 52 mg intrauteral device) multivitamin, ( Multivitamins) 1 each Oral once a day Additional Information: Source: [facility] POWERCHART Document Id: [id number] Electronically signed by Conversion, [facility] Ground Nuclear Weapons Assembly Officer [id number] at 03/01/2017 2:47 AM CDT Miscellaneous - Conversion, Historical Provider Ser - 05/21/2010 4:54 PM CDT Pediatric Systems Technologist Intake/History Pediatric Systems Technologist Intake/History Entered On: 05/21/2010 16:58 CDT Performed On: 05/21/2010 16:54 CDT by CHEYANNE BRYAN LPN Intake Chief Complaint: red, swollen eyes Onset of Symptoms: two days Ambulatory Intake Additional Information: using otc eye drops, eyes mattery this am, stinging Temperature Core: 36.4DegC(Converted to: 97.5DegF) (LOW) Peripheral Pulse Rate: 88bpm Heart Rhythm: Regular Respiratory Rate: 20br/min Systolic Blood Pressure: 118mmHg Diastolic Blood Pressure: 60mmHg NIBP Mean: 79mmHg BP Reading Side: Right upper extremity CHEYANNE BRYAN LPN - 05/21/2010 16:54 CDT Subjective Pain Symptoms: Yes CHEYANNE BRYAN LPN - 05/21/2010 16:54 CDT Pain Pain Assessment Grid Pain 1 Location: Eye Laterality: Bilateral Intensity: 10 Time Pattern: Acute Onset: Sudden Quality: Pressure CHEYANNE BRYAN LPN - 05/21/2010 16:54 CDT Dependent Habits Tobacco Use/Currently Using: No NELIA BRYANT E VISUAL COORDINATOR - 05/21/2010 16:54 CDT Allergy Allergies (Active) Cats Estimated Onset Date: Unspecified ; Comment: has allergy to cats ; Created By: CLIVE MACKAY LPN; Reaction Status: Active ; Category: Other ; Substance: Cats ; Type: Allergy ; Updated By: RAYMOND MACKAY LPN; Reviewed Date: 05/21/2010 16:53 CDT Source: [facility] [employer] Document Id: [id number] CDT!26 documented in this encounter Plan of Treatment Not on filedocumented as of this encounter Visit Diagnoses Not on filedocumented in this encounter
--- OUTSIDE RECORDS SUMMARY | 2022-07-09 20:46 | XMS_ITS | Encounter Summary ---
:1990 Author Organization [facility] Address [address] [place] [address] Care Team Providers Name Role Phone Unavailable Primary Care Provider Unavailable Encounter Details Date Type Department Care Team Description 11/26/2009 Hospital Encounter HX NO MAPPING Luda Nicholson APRN, C.N.P., M.S.N. Social History Tobacco Use Types [...] do you attend rastafari or Never 2020 bahai services? Do you [...]
--- OUTSIDE RECORDS SUMMARY | 2022-07-09 20:46 | XMS_ITS | Encounter Summary ---
:1990 Author Organization [facility] Address [address] [place] [address] Care Team Providers Name Role Phone Unavailable Primary Care Provider Unavailable Encounter Details Date Type Department Care Team Description 12/12/2009 Hospital Encounter [facility]X [facility] FAMILYPRA Luda Nicholson APRN, C.N.P., M.S.N. Social History [...] do you attend denominational or Never 2020 orthodoxy services? Do you [...]
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
--- OUTSIDE RECORDS SUMMARY | 2022-07-09 20:46 | XMS_ITS | Encounter Summary ---
:1990 Author Organization [facility] Address [address] [place] [address] Care Team Providers Name Role Phone Unavailable Primary Care Provider Unavailable Encounter Details Date Type Department Care Team Description 11/05/2010 Hospital Encounter [facility]X [facility] Junito Lorenz , PWanderAWander-C. [address] [place] [phone] (Wo rk) Social History Tobacco Use Types [...] do you attend quaker or Never 2020 taoism services? Do you [...] documented as of this encounter Progress Notes Junito Lorenz P.A.-C. - 11/05/2010 6:53 PM CST EC DATE OF SERVICE: 11/05/2010 REASON FOR VISIT Barbra is an 20-year-old female who complains of a one week history of sore throat and states that she has been exposed to strep throat through her child and her boyfriend, both of whom have tested positive. HISTORY OF PRESENT ILLNESS She has not taken her temperature, but she has occasions where she has felt warm. She denies any chest pain or shortness of breath. She has had a couple episodes of diarrhea today and has had occasional episodes of nausea, but no vomiting. Oral intake has been adequate. PAST MEDICAL, FAMILY, AND SOCIAL HISTORY Medical: 1. She does have a history of mild depression. 2. Anxiety. 3. Stress. MEDICATIONS control pills, though she cannot recall the type. ALLERGIES No known drug allergies. She is ALLERGIC TO CAT DANDER. EXAMINATION VITALS: Per nurses notes. HEENT: Pupils equal and reactive. Sclerae are nonicteric. Conjunctivae are normal. Tympanic membranes: [place]ino[place] and translucent bilaterally. Nares: Patent with scant clear rhinorrhea. Oropharynx: Mucosa iserythematous with exudate. NECK: Supple with scattered anterior chain lymphadenopathy. LUNGS: Clear to auscultation and equal in all oconnor. HEART: Normal S1 and S2. No murmur, rub or gallop. DIAGNOSTIC DATA Rapid strep test is positive. IMPRESSION/REPORT/PLAN Streptococcal pharyngitis. I prescribed a Z-Sagar for the patient and electronically sent this to [facility] for her convenience. I urged her to follow up with her primary care provider, return to the urgent care or come to the emergency department should her symptoms not improve, should they worsen or for any other medical concernsthat may arise. Patient verbalized understanding and stated she will followup as recommended. BERNSTEIN:viola Doc#: [id number] cc: Electronically Signed By: JUNITO LORENZ PA-C On: 11/15/2010 08:25 Source: [facility] ISJDICTAPHONESYS Document Id: [id number] MECHANIC documented in this encounter Miscellaneous Notes Miscellaneous - Conversion, Historical Provider Ser - 11/05/2010 7:26 PM PBX MECHANIC Adult Principal Cyber Engineer Intake/History Adult Principal Cyber Engineer Intake/History Entered On: 11/05/2010 19:30 PBX MECHANIC Performed On: 11/05/2010 19:26 PBX MECHANIC by CHEYANNE BRYAN LPN Intake Chief Complaint: sore throat Onset of Symptoms: one week Ambulatory Intake Additional Information: states child has strep Temperature Core: 38.1C(Converted to: 100.6DegF) Peripheral Pulse Rate: 100/min Respiratory Rate: 20/min Systolic Blood Pressure: 128mmHg Diastolic Blood Pressure: 80mmHg NIBP Mean: 96mmHg BP Location: Right upper extremity Heart Rhythm: Regular CHEYANNE BRYAN LPN - 11/05/2010 19:26 PBX MECHANIC Subjective Pain Symptoms: Yes CHEYANNE BRYAN LPN - 11/05/2010 19:26 PBX MECHANIC Pain Pain Assessment Grid Pain 1 Location: Throat Time Pattern: Acute Onset: Gradual Quality: Dull CHEYANNE BRYAN LPN - 11/05/2010 19:26 PBX MECHANIC Dependent Habits Tobacco Use/Currently Using: No Exposure to Tobacco Smoke: Lives with someone who smokes CHEYANNE BRYAN LPN - 11/05/2010 19:26 PBX MECHANIC Caffeine Use Grid Caffeine Use: Current Type: Coffee Frequency: Daily CHEYANNE BRYAN LPN - 11/05/2010 19:26 PBX MECHANIC Allergies Allergies (Active) Cats Estimated Onset Date: Unspecified ; Comment: has allergy to cats ; Created By: CLIVE MACKAY LPN; Reaction Status: Active ; Category: Other ; Substance: Cats ; Type: Allergy ; Updated By: RAYMOND MACKAY LPN; Reviewed Date: 11/05/2010 19:25 PBX MECHANIC Source: [facility] POWERCHART Document Id: [id number] PBX MECHANIC!30 documented in this encounter Plan of Treatment Not on filedocumented as of this encounter Visit Diagnoses Not on filedocumented in this encounter
--- OUTSIDE RECORDS SUMMARY | 2022-07-09 20:46 | XMS_ITS | Encounter Summary ---
:1990 Author Organization [facility] Address [address] [place] [address] Care Team Providers Name Role Phone Unavailable Primary Care Provider Unavailable Encounter Details Date Type Department Care Team Description 09/13/2009 Hospital Encounter [facility] Royal Huff [...] do you attend jainism or Never 2020 episcopal services? Do you [...]
--- OUTSIDE RECORDS SUMMARY | 2022-07-09 20:46 | XMS_ITS | Encounter Summary ---
:1990 Author Organization [facility] Address [address] [place] [address] Care Team Providers Name Role Phone Unavailable Primary Care Provider Unavailable Encounter Details Date Type Department Care Team Description 01/20/2010 Hospital Encounter [facility] Marlena Shelby M.D. [address] [place] [phone] (Wo rk) Social History Tobacco [...] do you attend caodaism or Never 2020 scientologist services? Do you [...] documented as of this encounter Progress Notes Jaqueline Shelby M.D. - 01/20/2010 12:00 AM CDT [id number] HISTORY OF PRESENT ILLNESS This 19-year-old female is 2 months . She says she has had 2 days when she has had a little bit of a stomachache, little bit of a lost appetite, thinks she may have a little bit of a virus, but also wonders if she might be ; says she could be up to about a month , at most. She is breast feeding. She has not always been taking precautions while being sexually active over the last month. VITAL SIGNS As per the EMR. PHYSICAL EXAM GENERAL: The patient is awake, alert and in no acute distress. She is afebrile. ABDOMEN: Examination shows her to be somewhat obese. She does have no acute tenderness on exam. Bowel sounds were fine. No unusual problems noted. IMPRESSION/REPORT/PLAN DIAGNOSTIC: We did do a test which was negative at this time, but she is cautioned this may be inaccurate if she has just recently become . PLAN: She is going to follow up with Dr. Royal Larson. She plans on calling him tomorrow to get an IUD. Jaqueline Shelby M.D. omg Electronically Signed By:JAQUELINE SHELBY MD On 01/27/2010 02:08 PM Source: [facility]YNONRAD[facility] Document Id: [id number] documented in this encounter Miscellaneous Notes Miscellaneous - Rajni Santiago, R.N. - 01/20/2010 6:07 PM CDT Pediatric Hat Forming Machine Operator Intake/History Pediatric Hat Forming Machine Operator Intake/History Entered On: 01/20/2010 18:09 CDT Performed On: 01/20/2010 18:07 CDT by RAJNI SANTIAGO Intake Chief Complaint: abdominal pain Onset of Symptoms: few days Temperature Oral: 36.8DegC(Converted to: 98.2DegF) Peripheral Pulse Rate: 84bpm Respiratory Rate: 12br/min (LOW) Systolic Blood Pressure: 102mmHg Diastolic Blood Pressure: 78mmHg NIBP Mean: 86mmHg BP Reading Side: Right lower extremity Actual Weight: 92.500kg(Converted to: 203lb 15oz, 203.928lb, 3,262.842oz) Dosing Weight Clinic: 92.50kg RAJNI SANTIAGO - 01/20/2010 18:07 CDT Subjective Pain Symptoms: Yes RAJNI SANTIAGO - 01/20/2010 18:07 CDT Pain Pain Assessment Grid Pain 1 Location: Abdomen Time Pattern: Acute RAJNI SANTIAGO - 01/20/2010 18:07 CDT Dependent Habits Tobacco Use/Currently Using: No Tobacco Use/Last 12 months: No RAJNI SANTIAGO - 01/20/2010 18:07 CDT Allergy Allergies (Active) Cats Estimated Onset Date: Unspecified ; Comment: has allergy to cats ; Created By: CLIVE MACKAY LPN; Reaction Status: Active ; Category: Other ; Substance: Cats ; Type: Allergy ; Updated By: RAYMOND MACKAY LPN; Reviewed Date: 04/25/2009 15:44 CDT [facility] Document Id: [id number] CDT!23 Miscellaneous - Rajni Santiago RJoshua - 01/20/2010 6:02 PM CDT Pediatric Hat Forming Machine Operator Intake/History Pediatric Hat Forming Machine Operator Intake/History Entered On: 01/20/2010 18:05 CDT Performed On: 01/20/2010 18:02 CDT by RAJNI SANTIAGO Intake Chief Complaint: abdominal pain, headache Onset of Symptoms: few days RAJNI SANTIAGO - 01/20/2010 18:02 CDT Subjective Pain Symptoms: Yes RAJNI SANTIAGO - 01/20/2010 18:02 CDT Pain Pain Assessment Grid Pain 1 Location: Abdomen Time Pattern: Acute RAJNI SANTIAGO - 01/20/2010 18:02 CDT Dependent Habits Tobacco Use/Currently Using: No Tobacco Use/Last 12 months: No RAJNI SANTIAGO - 01/20/2010 18:02 CDT Allergy Allergies (Active) Cats Estimated Onset Date: Unspecified ; Comment: has allergy to cats ; Created By: CLIVE MACKAY LPN; Reaction Status: Active ; Category: Other ; Substance: Cats ; Type: Allergy ; Updated By: RAYMOND MACKAY LPN; Reviewed Date: 04/25/2009 15:44 CDT Source: [facility] [employer] Document Id: [id number] CDT!14 documented in this encounter Plan of Treatment Not on filedocumented as of this encounter Visit Diagnoses Not on filedocumented in this encounter
--- OUTSIDE RECORDS SUMMARY | 2022-07-09 20:46 | XMS_ITS | Encounter Summary ---
:1990 Author Organization [facility] Address [address] [place] [address] Care Team Providers Name Role Phone Unavailable Primary Care Provider Unavailable Encounter Details Date Type Department Care Team Description 11/25/2009 Hospital Encounter HX [facility] Royal Huff [...] do you attend zoroastrianism or Never 2020 sikh services? Do you [...]
--- OUTSIDE RECORDS SUMMARY | 2022-07-09 20:46 | XMS_ITS | Encounter Summary ---
:1990 Author Organization [facility] Address [address] [place] [address] Care Team Providers Name Role Phone Unavailable Primary Care Provider Unavailable Encounter Details Date Type Department Care Team Description 06/17/2010 Hospital Encounter [facility]X [facility] Mo A [...] do you attend mandaeism or Never 2020 confucianism services? Do you belong to any clubs [...] encounter Progress Notes Cassandra Salguero M.S.N. - 06/17/2010 12:00 AM CDT [id number] CHIEF COMPLAINT / REASON FOR VISIT Barbra is seen requesting that her IUD be removed. She states she has been having all kinds of anxiety, hair loss, lower pelvic discomfort and cramping since her IUD has been placed. Has been seen at the [facility] for many of these symptoms as well. Currently on Paxil. She states she would like to go onto a control pill so that she has a regular menstrual period and thinks that this would be a better method for her than the Mirena IUD. She has had a lot of stressful family and social issues going on and is following with [facility] with regard to this. CURRENT MEDICATIONS Reviewed and no changes per EMR. ALLERGIES Cats. VITAL SIGNS BLOOD PRESSURE: 98/64 WEIGHT: 88.6 kg on 06/03/2010 PHYSICAL EXAM GENERAL: Alert, oriented, pleasant, talkative, somewhat rambling 19-year-old female in no acute distress, although she does appear emotionally anxious. SKIN: Warm, pink and dry. GENITOURINARY: Normal-appearing external female genitalia. BSU is negative. Vagina is pink and rugated. Cervix appears within normal limits. The IUD strings are noted to be 2 cm in length and this is unchanged from the time of her insertion in February. She does have a small amount of cloudy vaginal discharge present. After verifying that patient truly wants her IUD out and wants to use a different type of contraception, and re-verifying this with her 3 separate times, she asks that the IUD be removed. The IUD strings were then grasped with a ring forceps and the IUD was removed in its entirety without difficulty. IMPRESSION / REPORT / PLAN 1) [id number] female in need of adequate contraception, status post IUD removal today. I did advise her that should her pelvic symptoms not resolve with removal of the IUD that she needs to have further evaluation. We discussed the need to start on another control method immediately. She, after discussion of all the options out there, wants to go on a control pill. Will choose Ortho-Cyclen because of its monophasic activity and possibly this may be an inexpensive prescription for her. We discussed how to get started on the pill and how to take it, the need to take it on a daily basis, and what to do should she miss a pill. Also discussed calling should she have any questions or concerns with regard to this type of contraception or how to take it. She will get started on her pills today. A 3 month supply was called in with no refills. Would like to see her back before the end of the 3rd pill pack for recheck to see how this method is working for her. Terrence Multani akg Electronically Signed By:CASSANDRA SALGUERO FLAME CUTTER On 06/23/2010 10:18 AM Source: [facility] MHSDOLBEYNONRADSYS Document Id: [id number] documented in this encounter Miscellaneous Notes Miscellaneous - Conversion, Historical Provider Ser - 06/17/2010 11:01 AM CDT Adult Manager Transmission Intake/History Adult Manager Transmission Intake/History Entered On: 06/17/2010 11:06 CDT Performed On: 06/17/2010 11:01 CDT by JULIUS LAMB Intake Chief Complaint: IUD removal Pt complains of bloating, headaches starting last week, some burning when urinating, urinary frequency X 2-3 weeks Pt states she is having issues with anxiety Systolic Blood Pressure: 98mmHg Diastolic Blood Pressure: 64mmHg NIBP Mean: 75mmHg BP Location: Left upper extremity JULIUS LAMB - 06/17/2010 11:01 CDT Subjective Pain Symptoms: Yes JULIUS LAMB - 06/17/2010 11:01 CDT Pain Pain Assessment Grid Pain 1 Location: Abdomen JULIUS LAMB - 06/17/2010 11:01 CDT Dependent Habits Tobacco Use/Currently Using: No Exposure to Tobacco Smoke: Lives with someone who smokes JULIUS LAMB - 06/17/2010 11:01 CDT Allergies Allergies (Active) Cats Estimated Onset Date: Unspecified ; Comment: has allergy to cats ; Created By: CLIVE MACKAY LPN; Reaction Status: Active ; Category: Other ; Substance: Cats ; Type: Allergy ; Updated By: RAYMOND MACKAY LPN; Reviewed Date: 06/03/2010 15:08 CDT Source: [facility] POWERCHART Document Id: [id number] CDT!16 documented in this encounter Plan of Treatment Not on filedocumented as of this encounter Visit Diagnoses Not on filedocumented in this encounter
--- OUTSIDE RECORDS SUMMARY | 2022-07-09 20:46 | XMS_ITS | Encounter Summary ---
:1990 Author Organization [facility] Address [address] [place] [address] Care Team Providers Name Role Phone Unavailable Primary Care Provider Unavailable Encounter Details Date Type Department Care Team Description 10/30/2009 Hospital Encounter [facility]X [facility] Fransisco Merino M.D. [address] [place], [place] [phone] (Wo rk) Social History [...] do you attend worship or Never 2020 sikhism services? Do you [...]
--- OUTSIDE RECORDS SUMMARY | 2022-07-09 20:46 | XMS_ITS | Encounter Summary ---
:1990 Author Organization [facility] Address [address] [place] [address] Care Team Providers Name Role Phone Unavailable Primary Care Provider Unavailable Encounter Details Date Type Department Care Team Description 04/22/2010 Hospital Encounter [facility]X [facility]WC[facility]andra Mo A [...] do you attend denominational or Never 2020 restorationist services? Do you [...] encounter Progress Notes Cassandra Salguero M.S.N. - 04/22/2010 12:00 AM CDT [id number] CHIEF COMPLAINT / REASON FOR VISIT Barbra is seen for a recheck of her IUD. HISTORY OF PRESENT ILLNESS She had a Mirena IUD inserted 03/10/2010. She has noted some persistent spotting, usually light pink in color, since the IUD was placed. She has had some left-sided abdominal cramping, which is not present today. She has no other concerns or questions regarding her IUD and so, thus far, is happy with the contraceptive. VITAL SIGNS BLOOD PRESSURE: 106/66, left arm PHYSICAL EXAM GENERAL: Alert and oriented, pleasant 19-year-old female. No acute distress. SKIN: Warm, pink and dry. PELVIS: Normal-appearing external female genitalia. BSU is negative. Vagina is pink and rugated. Cervix appears within normal limits. There is a moderate amount of cloudy vaginal discharge on the cervix. IUD strings are noted to be 2 cm in length, which is where the IUD strings were trimmed to at time of insertion. She has tried to check for her strings, but has been unable to feel them. We did discuss her anatomy so that she would be able to find these in the future. Bimanual exam shows a normal-sized uterus, which is midline and moves without cervical motion tenderness. Exam was somewhat technically difficult, given her body habitus. I do not feel any pelvic masses. No adnexal fullness on either side, although she does complain of some mild tenderness in the left adnexal area. IMPRESSION / REPORT / PLAN 1) A 19-year-old female with Mirena intrauterine device placed February 2010. Continues to have some spotting, and she was reassured that this can be very normal after the Mirena IUD was placed. May last for 3 or 4 months, but generally resolves on its own. Ibuprofen 200-600 mg for cramping as needed. Follow up should she have any unusual spotting or bleeding, should she have any pain or discomfort other than what she has described thus far. Encouraged her to check for IUD strings on a monthly basis. Follow up should she have any significant change in string length or concerns. I asked that she track her spotting and any pain or cramping she may have so that she can try to correlate it with what would normally be a menstrual period time for her or ovulatory time for her. Terrence Multani cla Electronically Signed By:CASSANDRA SALGUERO NP On 04/24/2010 03:14 PM Source: [facility] Document Id: [id number] documented in this encounter Miscellaneous Notes Miscellaneous - Conversion, Historical Provider Ser - 04/22/2010 2:48 PM CDT Adult Product Promoter Sales Person Intake/History Adult Product Promoter Sales Person Intake/History Entered On: 04/22/2010 14:53 CDT Performed On: 04/22/2010 14:48 CDT by JULIUS LAMB Intake Chief Complaint: RECHECK IUD Systolic Blood Pressure: 106mmHg Diastolic Blood Pressure: 66mmHg NIBP Mean: 79mmHg BP Location: Left upper extremity JULIUS LAMB - 04/22/2010 14:48 CDT Subjective Pain Symptoms: No JULIUS LAMB - 04/22/2010 14:48 CDT Dependent Habits Tobacco Use/Currently Using: No JULIUS LAMB - 04/22/2010 14:48 CDT Allergies Allergies (Active) Cats Estimated Onset Date: Unspecified ; Comment: has allergy to cats ; Created By: CLIVE MACKAY LPN; Reaction Status: Active ; Category: Other ; Substance: Cats ; Type: Allergy ; Updated By: RAYMOND MACKAY LPN; Reviewed Date: 03/31/2010 14:09 CDT Source: [facility] POWERCHART Document Id: [id number] CDT!11 documented in this encounter Plan of Treatment Not on filedocumented as of this encounter Visit Diagnoses Not on filedocumented in this encounter
--- OUTSIDE RECORDS SUMMARY | 2022-07-09 20:46 | XMS_ITS | Encounter Summary ---
:1990 Author Organization [facility] Address [address] [place] [address] Care Team Providers Name Role Phone Unavailable Primary Care Provider Unavailable Encounter Details Date Type Department Care Team Description 06/13/2009 Hospital Encounter [facility]X [facility] Royal Huff [...] do you attend anabaptism or Never 2020 roman catholic services? Do you belong to any [...]
--- OUTSIDE RECORDS SUMMARY | 2022-07-09 20:46 | XMS_ITS | Encounter Summary ---
:1990 Author Organization [facility] Address [address] [place] [address] Care Team Providers Name Role Phone Unavailable Primary Care Provider Unavailable Encounter Details Date Type Department Care Team Description 10/28/2009 Hospital Encounter [facility] Kev Sesay M.D . [address] [place] [phone] (Wo rk) Social History Tobacco Use [...] do you attend temple or Never 2020 bahai services? Do you [...]
--- OUTSIDE RECORDS SUMMARY | 2022-07-09 20:46 | XMS_ITS | Encounter Summary ---
:1990 Author Organization [facility] Address [address] [place] [address] Care Team Providers Name Role Phone Unavailable Primary Care Provider Unavailable Encounter Details Date Type Department Care Team Description 10/02/2010 Hospital Encounter [facility] Radha Lee D.O. [address] [place] [phone] (Wo rk) Social History Tobacco Use [...] do you attend christian or Never 2020 religion services? Do you [...] documented as of this encounter Progress Notes Radha Jolly D.O. - 10/02/2010 5:13 PM CST EC DATE OF SERVICE: 10/02/2010 REASON FOR VISIT Barbra is an 20-year-old who presents to the office today complaining of lower abdominal aches and pains. HISTORY OF PRESENT ILLNESS She has had some nausea and vomiting and a headache and has been very gassy. No diarrhea. She has a good appetite. She states she is eating more now perhaps than prior to having this nausea. No fever or chills. She has noticed that her urine is a little bit darker. Does not hurt to walk or jump. It has been on and off since Wednesday. She now feels like diarrhea may be coming. EXAMINATION Generally healthy appearing, well-developed, well-nourished, well-hydrated 20-year-old female, no acute distress. Temperature 36.8. Heart rate 72. Respirations 16. Blood pressure 115/70. Heart: Regular rate and rhythm. Lungs clear to auscultation bilaterally. Abdomen soft, mild suprapubic tenderness, no rebound or guarding. Positive bowel sounds in all quadrants. Jar test was negative, psoassign was negative, no CVA tenderness. Extremities: No pain or edema. HEENT: Pupils equal, round and reactive. Mucous membranes pink and moist. Throat: No erythema or exudate. DIAGNOSTIC DATA Urinalysis was negative except for trace blood. No leukocyte esterase, nitrates were negative. Urinepregnancy test was also negative. IMPRESSION/REPORT/PLAN Viral gastroenteritis. Oral rehydration therapy with Gatorade, Powerade, water. Recommend bland diet and follow up if no resolutions of signs and symptoms or if patient shows signs of dehydration which were discussed. She expresses understanding, is comfortable with that plan. AMD:raina Doc#: [id number] Electronically Signed By:RADHA JOLLY DO On 10/03/2010 12:16 PM Source: [facility] Document Id: [id number] FINISHING RANGE BACK TENDER documented in this encounter Miscellaneous Notes Miscellaneous - Conversion, Historical Provider Ser - 10/02/2010 5:30 PM CLOTH FINISHING RANGE BACK TENDER Adult Dials Inspector Intake/History Adult Dials Inspector Intake/History Entered On: 10/02/2010 17:33 CLOTH FINISHING RANGE BACK TENDER Performed On: 10/02/2010 17:30 CLOTH FINISHING RANGE BACK TENDER by VIVIANA WANG LPN Intake Chief Complaint: stomach pain/lower abdominal; nausea; vomiting; some diarrhea Onset of Symptoms: since Wednesday Temperature Core: 36.8C(Converted to: 98.2DegF) Peripheral Pulse Rate: 72/min Respiratory Rate: 16/min Systolic Blood Pressure: 115mmHg Diastolic Blood Pressure: 70mmHg NIBP Mean: 85mmHg BP Location: Left upper extremity VIVIANA WANG LPN - 10/02/2010 17:30 CLOTH FINISHING RANGE BACK TENDER Subjective Pain Symptoms: Yes VIVIANA WANG LPN - 10/02/2010 17:30 CLOTH FINISHING RANGE BACK TENDER Pain Pain Assessment Grid Pain 1 Location: Abdomen Intensity: 9 VIVIANA WANG LPN - 10/02/2010 17:30 CLOTH FINISHING RANGE BACK TENDER Dependent Habits Tobacco Use/Currently Using: No Exposure to Tobacco Smoke: Lives with someone who smokes VIVIANA WANG LPN - 10/02/2010 17:30 CLOTH FINISHING RANGE BACK TENDER Caffeine Use Grid Caffeine Use: Current Type: Coffee Frequency: Daily VIVIANA WANG LPN - 10/02/2010 17:30 CLOTH FINISHING RANGE BACK TENDER Allergies Allergies (Active) Cats Estimated Onset Date: Unspecified ; Comment: has allergy to cats ; Created By: CLIVE MACKAY LPN; Reaction Status: Active ; Category: Other ; Substance: Cats ; Type: Allergy ; Updated By: RAYMOND MACKAY LPN; Reviewed Date: 10/02/2010 17:29 CLOTH FINISHING RANGE BACK TENDER Source: [facility] POWERCH[facility] Document Id: [id number] CLOTH FINISHING RANGE BACK TENDER!26 documented in this encounter Plan of Treatment Not on filedocumented as of this encounter Visit Diagnoses Not on filedocumented in this encounter
--- OUTSIDE RECORDS SUMMARY | 2022-07-09 20:46 | XMS_ITS | Encounter Summary ---
:1990 Author Organization [facility] Address [address] [place] [address] Care Team Providers Name Role Phone Unavailable Primary Care Provider Unavailable Encounter Details Date Type Department Care Team Description 02/11/2010 Hospital Encounter HX [facility] OWCassandra Mo A [...] do you attend pentecostal or Never 2020 jainism services? Do you [...] encounter Progress Notes Cassandra Salguero M.S.N. - 02/11/2010 12:00 AM CDT [id number] CHIEF COMPLAINT/REASON FOR VISIT Barbra is seen hoping to have an IUD placed today. HISTORY OF PRESENT ILLNESS She is over 10 weeks having had a menstrual period starting on January 28. She states that this was quite heavy although began spotting for 1 day only 02/10. She is worried that she may become and is wanting some longer term contraception. She is interested in the Mirena IUD and does not feel she would be a good pill taker and really does not want to become again for some time. She did test negative for gonorrhea and chlamydia during her and she has had no other partners. She is confident her partner has had no other partners during the course of the as well and declines any testing again. She did have a normal Pap smear 04/26/2009 collected at the time of her . She did have a delivery for arrest of descent on 11/26/2009. CURRENT MEDICATIONS Multivitamin. ALLERGIES Cats. VITAL SIGNS BLOOD PRESSURE: 92/64 left arm PHYSICAL EXAM GENERAL: Alert, oriented, pleasant 19-year-old female who is overweight. SKIN: Warm, pink and dry. She does point out a rash on her neck and asked for a refill of her clotrimazole prescription cream to use. Remainder of skin was not examined but what is present on the neck appears to be acanthosis nigricans. The remainder of physical exam was deferred. She did have a normal 6-week postoperative checkup January 07, 2010. She received printed information regarding the Mirena IUD at that time and declines any further information. IMPRESSION/REPORT/PLAN 1) 19-year-old female looking for longer term reliable contraception, does not feel she do well on the control pill. Advised that she have her period at the time of insertion and to use a backup method in the interim should she be sexually active. Should she not get a menstrual period as expected recommend she return for a test. She states that she had several tests that were negative before she finally had a positive test. Would consider a beta HCG for her although she does not believe she could be . She does not believe she has been sexually active since her menstrual period. Her questions were answered today regarding the use of Mirena IUD for contraception and will have her return at the end of the month when she is expecting her next menstrual period. Call should she have it earlier or should it not arrive on time and we will adjust the schedule accordingly in order to get her IUD placed. She had a normal Pap so will not need a repeat of this and has no concerns for partner changes since being tested during her for gonorrhea and chlamydia so we will not repeat this at this time as well. Call with any questions she may have prior to the onset of her next period or bring them with her to her appointment for IUD insertion. 2) Skin rash. We did discuss that this does not look to be a rash but is acanthosis nigricans. We discussed health implications associated with this discoloration of the skin. Told her that if she wanted to do anything she should work on weight loss and dietary changes to help reduce her risks. I would refer her further for dermatology otherwise. Terrence Multani bft Electronically Signed By:CASSANDRA SALGUERO GAME WARDEN On 02/17/2010 08:22 AM Source: [facility] MHSDOLBEYNONRADSYS Document Id: [id number] documented in this encounter Nursing Notes Conversion, Historical Provider Ser - 02/11/2010 11:38 AM CDT Several phone attempts made to pt to fill out form on post depression. Pt seen by Isaias Salguero today and completed form. No concerns today. Electronically Signed By:JF SMITH On 02/11/2010 11:39 am Source: [facility] POWERCHART Document Id: [id number] documented in this encounter Miscellaneous Notes Miscellaneous - Kaleigh Mcgee, R.N. - 07/21/2013 12:10 PM CDT General Message Document Contains Addenda Addendum by KALEIGH MCGEE RN on 21 July 2013 12:21:02 CDT From: KALEIGH MCGEE RN ([place] [facility] Nurse Line) To: CATHERINE SCHAEFER MD; Cc: ISABELLA Schaefer Nurse; Sent: 07/21/2013 12:21:02 CDT Subject: FW: General Message Noted. Due to circumstances with the schedule today, pt. has been added to Dr. Schaefer's schedule @ 1344 today. Pt's baby needs to be seen in as well also, which will be done first. From: KALEIGH MCGEE RN ([place] [facility] Nurse Line) To: ANIA KOHLI MD; Sent: 07/21/2013 12:10:24 CDT Subject: General Message Phone call from [facility]-pt. presenting there with a incision that has opened up. She rec'd her care in [place]. Could you see her? I can reach the appt. staff back at either #[phone] or #[phone]. Thanks. Source: [facility] Document Id: [id number] Electronically signed by Conversion, [facility] Educational Consultant [id number] at 03/01/2017 8:02 AM CDT Miscellaneous - Conversion, Historical Provider Ser - 02/11/2010 11:20 AM CDT Adult Curer [employer] Intake/History Adult Curer [employer] Intake/History Entered On: 02/11/2010 11:23 CDT Performed On: 02/11/2010 11:20 CDT by JULIUS LAMB Intake Chief Complaint: CONSULT RE: IUD LMP Date: 01/28/2010 Systolic Blood Pressure: 92mmHg Diastolic Blood Pressure: 64mmHg NIBP Mean: 73mmHg BP Location: Left upper extremity JULIUS LAMB - 02/11/2010 11:20 CDT Subjective Pain Symptoms: No JULIUS LAMB - 02/11/2010 11:20 CDT Dependent Habits Tobacco Use/Currently Using: No JULIUS LAMB - 02/11/2010 11:20 CDT Allergies Allergies (Active) Cats Estimated Onset Date: Unspecified ; Comment: has allergy to cats ; Created By: CLIVE MACKAY LPN; Reaction Status: Active ; Category: Other ; Substance: Cats ; Type: Allergy ; Updated By: RAYMOND MACKAY LPN; Reviewed Date: 04/25/2009 15:44 CDT Source: [facility] Document Id: [id number] CDT!12 documented in this encounter Plan of Treatment Not on filedocumented as of this encounter Visit Diagnoses Not on filedocumented in this encounter
--- OUTSIDE RECORDS SUMMARY | 2022-07-09 20:46 | XMS_ITS | Encounter Summary ---
:1990 Author Organization [facility] Address [address] [place] [address] Care Team Providers Name Role Phone Unavailable Primary Care Provider Unavailable Encounter Details Date Type Department Care Team Description 05/18/2010 Hospital Encounter HX [facility] ED Provider, [...] do you attend latter-day or Never 2020 lutheran services? Do you [...] documented as of this encounter Discharge Summaries Izaiah Blount R.N. - 05/18/2010 9:11 PM CDT ED Discharge Instructions [address] [address] Name: NORAH GIMENEZ Date of : 1990 12:00 AM Visit Date: 05/18/2010 6:09 PM FIN: Current Date: 05/18/2010 21:10:59 Address: [address] [place] [address] [address] [place] [address] Primary Care Provider: GINNY MALDONADO MD IMPORTANT: [facility] would like to thank you for [...] Emergency Department. Follow-Up Instructions: With: Address: When: GINNY MALDONADO [address] [place] [address] phone, [employer] (1) Within Asneeded Comments: Follow up with primary doctor as needed. Drink plenty of fluids/water. Increase Fiber. Miralax dailyfor constipation. Patient Education Materials: CONSTIPATION [Adult] Constipation is when your bowel movements become less frequent than usual or when the stools become very hard. This may cause abdominal swelling or bloating. It may also cause painful or difficult bowel movements. Constipation is often due to a diet thats low in fiber. Some medicines, especially pain medicines, can also cause it. Constipation may be treated with enemas, suppositories, laxatives or stool softeners. Your doctor will advise you which will work best for you. It is important to follow the advice below to avoid this problem in the future. HOME CARE: 1) Take any medicines as prescribed. Laxatives are safe for use sometimes, but they should not be taken on a regular basis. 2) Sometimes pain medicine can be a cause for constipation. In the future, if you take pain medicine, you will need to use a combination of stool softeners, high fiber diet, and occasional mild laxatives to prevent constipation. Ask your doctor about this. 3) A diet high in FIBER with plenty of fluids each day is very important. This helps to maintain regular soft bowel movements. The following foods are good sources of dietary fiber: CEREALS & BREADS: Whole grain cereal with bran (Chex, Raisin Bran, [employer] Bran), oatmeal, rolled oats, bran muffins, whole grain breads FRUITS: All fruits (fresh & dried), raisins, prunes, apricots, berries, figs VEGETABLES: Any fresh vegetables, especially peas, broccoli, brussels sprouts, winter squash, green beans, cauliflower, blue beans, carrots JUICES: Fruit juices, especially prune juice OTHER: Popcorn, brown rice, lots of water FOLLOW UP with your doctor or return to this facility if symptoms do not improve in the next few days. RETURN PROMPTLY or contact your doctor if any of the following occur: -- No bowel movement within the next 24 hours -- Increasing abdominal pain or back pain -- Fever, vomiting, abdominal swelling -- Blood in the stool -- Weakness, dizziness, fainting -- Unexpected vaginal bleeding Discharge Prescriptions & Home Medications: Medication/Strength Dose Route Frequency Indications/Special Instructions/Comments metronidazole (Flagyl 500 mg oral tablet) 0.5 gm Oral every 8 hours may use generic levonorgestrel (Mirena 52 mg intrauteral device) multivitamin, ( Multivitamins) 1 each Oral once a day Attention: If you have any medications at home that are not on this list, please contact your provider for clarification. Patient Visit Summary: NORAH GIMENEZ has been given the following list of patient education materials, prescriptions, Home Medications and follow-up instructions: Follow-up Instructions: With: Address: When: GINNY MALDONADO [address] [place] [address] phone, [employer] (1) Within Asneeded Comments: Follow up with primary doctor as needed. Drink plenty of fluids/water. Increase Fiber. Miralax dailyfor constipation. Patient Education Materials: CONSTIPATION (Adult) Discharge Prescriptions & Home Medications: Medication/Strength Dose Route Frequency Indications/Special Instructions/Comments metronidazole (Flagyl 500 mg oral tablet) 0.5 gm Oral every 8 hours may use generic levonorgestrel (Mirena 52 mg intrauteral device) multivitamin, [...] to take those medications. NORAH GIMENEZ or sueee has reviewed the home medications you have [...] carefully. I, NORAH GIMENEZ , or responsible libertarian have received this information and my questions havebeen answered. I have discussed any challenges I see with this plan with the nurse or physician. Patient Signature or Responsible Republican Date/Time Provider Signature Date/Time Source: [facility] POWERCHART Document Id: [id number] Izaiah Blount R.N. - 05/18/2010 9:10 PM CDT ED Depart Summary [facility] Emergency Department / Urgent Care Clinical Discharge Summary PERSON INFORMATION Name NORAH GIMENEZ Age 19 Years 1990 12:00 AM Sex Female Language Pashto PCP GINNY MALDONADO MD Marital Status Single [facility] [id number] Visit Id Visit Reason Abdominal pain; Abdominal pain; Abdominal pain; Abdominal pain; stomach pains Specialty Enc Type Emergency Med Service Emergency Medicine Referred by Track Group [facility] ED/UC Discharge 05/18/2010 8:32 PM Tracking Id [id number] Checkout 05/18/2010 8:32 PM Checkin 05/18/2010 6:09 PM Acuity 4 -Less Urgent Dispo Type Discharged to Home or Self Care Arrival 05/18/2010 6:09 PM Reg Status Complete LOS 000 02:23 Address: [address] [facility] [place] [address] Comment: PROVIDER INFORMATION Provider Role Assigned Unassigned SHAMAR GRAHAM PA-C ED Provider 05/18/2010 6:11 PM YUMI AREVALO RN ED Nurse 05/18/2010 6:29 PM DIAGNOSIS Abdominal pain 789.00; Urinary tract infection 599.0; Constipation 564.00 Comment: PATIENT EDUCATION INFORMATION Instructions: CONSTIPATION (Adult) Follow up: With: Address: When: GINNY MALDONADO [address] [place] [address] phone, fixed, business (1) Within Asneeded Comments: Follow up with primary doctor as needed. Drink plenty of fluids/water. Increase Fiber. Miralax dailyfor constipation. Source: [facility] POWERCHART Document Id: [id number] documented in this encounter Nursing Notes Conversion, Historical Provider Ser - 05/18/2010 6:19 PM CDT ED Primary Assessment ED Primary Assessment Entered On: 05/18/2010 18:29 CDT Performed On: 05/18/2010 18:19 CDT by YUMI AREVALO RN Reason For Visit Problems(Active) Encounter For Anatomic Survey Name of Problem: Encounter For Anatomic Survey ; Onset Date: 06/2009 ; Classification: Medical ; Code: 1231 ; Contributor System: OWA_HPP_SYS ; Last Updated: 07/23/2009 19:00 CDT ; Life Cycle Date: 01/02/2010 ; Life Cycle Status: Active ; Vocabulary: ICD-9-CM IUD - Intrauterine device procedure Name of Problem: IUD - Intrauterine device procedure ; Recorder:CASSANDRA SALGUERO NP; Confirmation: Confirmed ; Classification: Medical ; Code: 279370 ; ContributorSystem: Snap Trends ; Last Updated: 03/10/2010 10:42 CDT ; Life Cycle Date: 03/10/2010 ; Life Cycle Status: Active ; Responsible Provider: CASSANDRA SALGUERO NP; Vocabulary: SNOMED CT Post Op Incision Name [...] System: OWA_HPP_SYS ; Last Updated: 11/24/2009 18:00 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 ; Life Cycle Date: 01/02/2010 ; Life Cycle Status: Active ; Vocabulary: ICD-9-CM Diagnoses(Active) Abdominal pain Date: 05/18/2010 18:11 CDT ; Diagnosis Type: Reason For Visit ; Confirmation: Confirmed ; Classification: Medical ; Clinical Service: Emergency medicine ; Code: PNED ; Probability: 0 ; Diagnosis Code: [id number] Abdominal pain Date: 05/18/2010 18:20 CDT ; Diagnosis Type: Reason For Visit ; Confirmation: Complaint of ; Classification: Nursing ; Clinical Service: Non- Specified ; Code: SNOMED CT ; Probability: 0 ; Diagnosis Code: [id number] Triage Chief Complaint Description: pt c/o lower abd pain starting 2weeks ago, worse today. 'hard to sleep on stomach'. some N no V. LBM 05/18, pt Father was called and we were given permission to eval and treat. Information Given By: Patient Accompanied By: Alone Mode of Arrival ED: Private vehicle Track: Medical Languages: Pashto, Divehi Pain Symptoms: Yes Vital Signs Assessed: Yes GCS Assessed: Yes YUMI AREVALO RN - 05/18/2010 18:19 CDT Pain Pain Assessment Grid Pain 1 Location: Abdomen Intensity: 4 YUMI AREVALO RN - 05/18/2010 18:19 CDT Vital Signs Temperature Core: 36.8DegC(Converted to: 98.2DegF) Peripheral Pulse Rate: 110bpm (HI) Respiratory Rate: 18br/min Systolic Blood Pressure: 103mmHg Diastolic Blood Pressure: 68mmHg NIBP Mean: 80mmHg SpO2: 99% Oxygen Therapy: Room air YUMI AREVALO RN - 05/18/2010 18:19 CDT Danny Coma Eye Opening Response [place]: Spontaneously Best Verbal Response Danny: Oriented Best Motor Response [place]: Obeys simple commands [place] Coma Score: 15 YUMI AREVALO RN - 05/18/2010 18:19 CDT SONNY SONNY Level 1: No SONNY Level 2: No SONNY Level 3: One YUMI AREVALO RN - 05/18/2010 18:19 CDT DCP GENERIC CODE Tracking Acuity: 4 -Less Urgent Tracking Group: [facility] ED/ YUMI AREVALO RN 05/18/2010 18:19 CDT Allergy Allergies (Active) Cats Estimated Onset Date: Unspecified ; Comment: has allergy to cats ; Created By: CLIVE MACKAY LPN; Reaction Status: Active ; Category: Other ; Substance: Cats ; Type: Allergy ; Updated By: RAYMOND MACKAY LPN; Reviewed Date: 05/09/2010 15:43 CDT Respiratory Airway: Patent Respirations: Unlabored Respiratory Pattern: Regular YUMI AREVALO RN - 05/18/2010 18:19 CDT Cardiovascular Heart Rhythm: Regular Skin Color: Normal for ethnicity Skin Description: Dry Skin Temperature: Warm YUMI AREVALO RN - 05/18/2010 18:19 CDT Neurological Level of Consciousness: Alert Orientation: Oriented x 3 Characteristics of Speech: Clear Gait: Steady YUMI AREVALO RN - 05/18/2010 18:19 CDT ED Psychosocial Affect/Behavior: Calm, Cooperative, Appropriate Domestic Concerns: None Emotional Support Available: Yes YUMI AREVALO RN - 05/18/2010 18:19 CDT Gastrointestinal Nutrition ED: Adequate GI Detailed Assessment: Yes YUMI AREVALO RN - 05/18/2010 18:19 CDT GI Detailed GI Patient Stated Symptoms: Abdominal pain Bowel Movement Last Date: 05/18/2010 CDT YUMI AREVALO RN - 05/18/2010 18:19 CDT Bowel Sounds Grid LUQ: Normoactive RUQ: Normoactive LLQ: Normoactive RLQ: Normoactive YUMI AREVALO RN - 05/18/2010 18:19 CDT /OB Assessment Note: has IUD, states she has never had bleeding with her periods, has 5 mo. baby. YUMI AREVALO RN - 05/18/2010 18:19 CDT Integumentary Skin Turgor: Elastic Skin Integrity: Intact Mucous Membrane Color: [place] Mucous Membrane Description: Moist YUMI AREVALO RN - 05/18/2010 18:19 CDT Musculoskeletal Fall Prevention Education Provided: NA YUMI AREVALO RN - 05/18/2010 18:19 CDT [facility] Document Id: [id number] CDT!75 documented in this encounter ED Notes Izaiah Blount R.N. - 05/18/2010 9:10 PM CDT ED Disposition Summary ED Disposition Summary Entered On: 05/18/2010 21:10 CDT Performed On: 05/18/2010 21:10 CDT by IZAIAH BLOUNT RN ED Disposition Summary Accompanied By: Sibling Mode of Discharge: Ambulatory Transportation: Private vehicle Discharge From ED With: Home Med List Patient Status at Discharge from ED: Improved IZAIAH BLOUNT RN - 05/18/2010 21:10 CDT Source: [facility] [employer] Document Id: [id number] CDT!7 Conversion, Historical Provider Ser - 05/18/2010 6:11 PM CDT Abdominal pain Patient: NORAH GIMENEZ - [place] MRN Age: 19 years Sex: Female : 1990 Author: SHAMAR GRAHAM PA-C Basic Information Time seen: Date & time 05/18/2010 18:11:00. History source: Patient. Arrival mode: Private vehicle, walking. History limitation: None. History of Present Illness The patient presents with abdominal pain andPermission to treat obtained from parents. . The onset was 2 weeks ago. The course/duration of symptoms is fluctuating in intensity. The character of symptoms is dull. The degree at onset was moderate. The degree at present is moderate. The Location of pain at present is lower and abdominal. Radiating pain: none. Exacerbating factors consist of none. The relieving factor is none. Therapy today: none. Risk factors consist of obesity. Associated symptoms: none. Additional history: Flagyl was prescribed for patient on 05/09/2010 by Alta Cash. Patient never picked up or took the medication. . Patient is having abdominal pain. She has had intermittent abdominal pain over the past 2 weeks. She was seen by Alta Cash on the 09 of May and at thattime a vaginal examination was done with Wet prep. Wet prep was negavie. GC and Chlamydia were negative. She does have a Milagros in place. Patient states that her mother told her that she got with an IUD in place and that maybe she was having a baby and she should get checked out. Last examination done on the with visualization of IUD string from cervical Os. . Review of Systems Constitutional symptoms: no fever no chills. Skin symptoms: no rash no pruritus, no lesion. Eye symptoms: No acute visual changes., no recent vision problems. ENMT symptoms: No cold symptoms. . Respiratory symptoms: no shortness of breath no cough, no wheezing. Cardiovascular symptoms: no chest pain no palpitations, no syncope, no diaphoresis. Gastrointestinal symptoms: Abdominal pain, Last BM this am. Normal BM. Generally has 1 BM every 2 days. no nausea, no vomiting, no diarrhea, no constipation, no rectal bleeding. Genitourinary symptoms: history of UTIs., Recent GC/Chlamydia and WET prep negative on 05/09/2010. nodysuria, no hematuria, no vaginal bleeding, no vaginal discharge. Musculoskeletal symptoms: no back pain no Muscle pain. Neurologic symptoms: no headache no dizziness. Psychiatric symptoms: no anxiety no depression. Allergy/immunologic symptoms: no recurrent infections no impaired immunity. Health Status Allergies: . Allergic Reactions (all) Cats Medications: . Prescriptions and Home Medications multivitamin, ( Multivitamins), 1 each, PO, Daily, 100 each levonorgestrel (Mirena 52 mg intrauteral device), metronidazole (Flagyl 500 mg oral tablet), 0.5 gm, 1 tab(s), PO, q8hr, may use generic, 30 tab(s) Past Medical/ Family/ Social History Medical history: Medical history. Active Post Op Incision (V58.49): Onset in 2009 at 19 years. Encounter For Anatomic Survey (): Onset in 2008 at 19 years. Preg Normal 1st (V22.0): Onset in 2008 at 18 years. Surgical history: Surgical history. IUD contraception ([id number]) in 2009 at 19 Years. Family history: Family history. No family history items have been selected or recorded. Problem list: . All Problems Encounter For Anatomic Survey / 81 Post Op Incision / V58.49 IUD - Intrauterine device procedure / [id number] / Confirmed Preg Normal 1st / V22.0 Physical Examination Vital signs: Vital Signs. 05/18/2010 18:19 CDT Temperature Core 36.8 DegC Peripheral Pulse Rate 110 bpm HI Respiratory Rate 18 br/min SpO2 99 % Systolic Blood Pressure 103 mmHg Diastolic Blood Pressure 68 mmHg Mean Arterial Pressure 80 mmHg General: Alert. no acute distress. Skin: Warm. dry. intact. normal for ethnicity. Head: Normocephalic. atraumatic. Neck: Supple. trachea midline. Eye: Normal conjunctiva Ears, nose, mouth and throat: Oral mucosa moist. No pharyngeal erythema or exudate. Cardiovascular: Regular rate and rhythm. No murmur. Normal peripheral perfusion. No edema. Respiratory: Lungs are clear to auscultation. respirations are non-labored. breath sounds are equal.Symmetrical chest wall expansion. Gastrointestinal: Soft. Non distended. Normal bowel sounds. Obese. obese. Mild suprapubic tenderness. No rebound or guarding. No tenderness in other aspects of abdomen. + BS. Genitourinary: Deferred, done 2 weeks ago with negative results. Back: Normal range of motion. Normal alignment. Musculoskeletal: Normal ROM. normal strength. Neurological: Alert and oriented to person, place, time, and situation. No focal neurological deficit observed. Psychiatric: Cooperative Medical Decision Making Differential Diagnosis:Abdominal pain, urinary tract infection. RationaleHx of UTIs. Recent vaginal examination with negative results.. Results review:Lab results : Lab View, 05/18/2010 19:35 CDT UUA Source. 05/18/2010 20:00 CDT Hgb 12.3 gm/dL Hct 35.2 % WBC 9.3 K/mm3 RBC 4.19 M/mm3 MCV 84.0 fL MCH 29.2 pg MCHC 34.8 gm/dL HI MPV 7.9 fL RDW 12.8 % Platelet 322 K/mm3 Neutro % 59.4 % Lymph % 32.5 % [place] % 5.5 % Eos % 1.9 % Baso % 0.7 % Neutro Absolute 5.5 K/mm3 Lymph Absolute 3.0 K/mm3 HI Monocyte Absol 0.50 K/mm3 [place]osino Absolute 00.2 K/mm3 Basophil Absol 00.1 K/mm3 Differential? Auto 05/18/2010 19:35 CDT UA Color YELLOW UA Spec Grav >=1.030 UA pH 5.5 UA Protein 30 mg/dL UA Glucose Negative UA Ketones Trace UA Bili Negative UA Urobilinogen 1.0 UA Blood Negative UA Nitrite Negative UA Leuk Est Negative UA WBC 3-5 UA RBC Negative UA Bacteria Trace UA Mucous Trace UA Comments starch UA Appear SL CLOUDY UA Epi 1+ UA Casts None Seen UA Crystals See Comments U Beta-hCG Ql Negative Interpretation Labs unremarkable. Abdominal/KUB X-rayWithin normal limits, nonspecific bowel gas pattern, Stool in ascending and transverse and descending colon. Milagros IUD in place. Reexamination/ Reevaluation Re-examination/Re-evaluation:Time 05/18/2010 18:43:00, Notes Patient attempted to give a urine sample, unable. . Impression and Plan Diagnosis Abdominal pain 789.00 (ICD9 789.00, Discharge, Emergency medicine, Medical) Constipation 564.00 (ICD9 564.00, Discharge, Emergency medicine, Medical) Discharge plan Condition: Stable. Dispositioned: To home. Patient was given the following educational materials: CONSTIPATION (Adult). Follow up with: GINNY MALDONADO Within As needed Follow up with primary doctor as needed. Drink plenty of fluids/water. Increase Fiber. Miralax daily for constipation. . Counseled: Patient, Regarding diagnosis, Regarding diagnostic results, Regarding treatment plan, Regarding prescription, Patient indicated understanding of instructions. Source: [facility] [employer] Document Id: [id number]} documented in this encounter Miscellaneous Notes Miscellaneous - Izaiah Blount R.N. - 05/18/2010 9:10 PM CDT Valuables/Belongings Valuables/Belongings Entered On: 05/18/2010 21:10 CDT Performed On: 05/18/2010 21:10 CDT by IZAIAH BLOUNT RN Valuables/Belongings Valuables/Belongings Grid Valuables with Patient Clothes, Patient Valuables: Pants, Shirt, Shoes IZAIAH BLOUNT RN - 05/18/2010 21:10 CDT Source: [facility] [employer] Document Id: [id number] CDT!5 Miscellaneous - Izaiah Blount R.N. - 05/18/2010 6:09 PM CDT Facility Charge Ticket Facility Charge Ticket Entered On: 05/18/2010 21:10 CDT Performed On: 05/18/2010 18:09 CDT by IZAIAH BLOUNT RN Facility Charge TVL Level for Facility Charge Ticket: Level 4 Mode of Arrival ED: Private vehicle [facility] Mode of Arrival Interpreted: Standard [facility] Process Management: None [facility] Order Management: Xray - plain films, Lab tests 30 Minutes Critical Care: No [facility] Nursing Assessment: Triage and 1-2 nursing assessments [facility]x Disposition: Discharge [facility] Total Points with Diagnosis Control: 9 Lynx Visit Level: 07084 Level 4 IZAIAH BLOUNT RN - 05/18/2010 21:10 CDT Source: [facility] [employer] Document Id: [id number] CDT!12 documented in this encounter Plan of Treatment Not on filedocumented as of this encounter Procedures Procedure Name Priority Date/Time Associated Diagnosis Comme nts DX ABDOMEN SUPINE Routine 05/18/2010 7:59 PM Resu lts for this WITH UPRIGHT OR CDT procedure ar e in DECUBITUS 2 VIEWS the result s section. documented in this encounter Results DX Abdomen Supine with Upright or Decubitus 2 Views (05/18/2010 7:59 PM CDT) Anatomical Region Laterality Modality Abdomen Right Radiographic Imaging Specimen (Source) Anatomical Collection Method Collection Time Re ceived Time Location / / Volume Laterality 05/18/2010 7:59 PM CDT Narrative 05/19/2010 6:33 AM CDT HISTORY: 19-year-old female with lower a bdominal pain. ?? Comparison: None. ?? Findings: There is a non- obstructed bow el gas pattern. There is no evidence for free air. The lung bases ar e clear. There is an IUD projecting over the expected location of the uterus. ?? Impression: Non- obstructed bowel gas pa ttern without evidence for free air. Procedure Note Leonardo Castro M.D. / Provider, Lenny woodward M.D. - 02/19/2017 HISTORY: 19-year-old female with lower a bdominal pain. Comparison: None. Findings: There is a non- obstructed bow el gas pattern. There is no evidence for free air. The lung bases ar e clear. There is an IUD projecting over the expected location of the uterus. Impression: Non- obstructed bowel gas pa ttern without evidence for free air. Historical Provider IMG DIAGNOSTIC IMAGING PROCE DURES documented in this encounter Visit Diagnoses Not on filedocumented in this encounter
--- OUTSIDE RECORDS SUMMARY | 2022-07-09 20:46 | XMS_ITS | Encounter Summary ---
:1990 Author Organization [facility] Address [address] [place] [address] Care Team Providers Name Role Phone Unavailable Primary Care Provider Unavailable Encounter Details Date Type Department Care Team Description 06/26/2009 Hospital Encounter HX [facility] ED [facility] tere Esparza P[address] [place] [address] (Wo rk) Social History Tobacco [...] do you attend buddhism or Never 2020 roman catholic services? Do [...]
--- OUTSIDE RECORDS SUMMARY | 2022-07-09 20:46 | XMS_ITS | Encounter Summary ---
:1990 Author Organization [facility] Address [address] [place] [address] Care Team Providers Name Role Phone Unavailable Primary Care Provider Unavailable Encounter Details Date Type Department Care Team Description 06/03/2010 Hospital Encounter [facility]X [facility] Dk Randolph M.D. [address] [address] [place] [address] (Wo rk) Social History Tobacco Use Types [...] do you attend caodaism or Never 2020 advent services? Do you [...] documented as of this encounter Progress Notes Dk Meyer M.D. - 06/03/2010 2:13 PM CDT CN [facility]ILY [facility] DATE OF SERVICE: 06/03/2010 REASON FOR VISIT This 19-year-old female was seen on June 03, 2010, with multiple complaints. HISTORY OF PRESENT ILLNESS The patient is very tearful. She comes from a very dysfunctional family. She said that she has multiple physical symptoms and wondered if it has something to do with diabetes or low thyroid. She said that she has depression and is very stressed at this moment. She feels sad. She says that she has frequent urination, irregular periods, left upper quadrant pain, worries about her liver because somebodytold her that it could be her liver. She said that she has an IUD and she gets back pain, chest pain. She has visited the emergency department. She is on prescription medicine. She can sleep. She said that her father is in nursing home for something he did not do. She is supporting her boyfriend, the baby, the fathers girlfriend. She has no support and a very poor family structure. Her parents . Desmond is living with the fathers friend. She has the other 3 children from the first relationship. The patient is really concerned because her brother is using marijuana, and her 10-year-old sister is probably sexually active. The patient seems very frustrated about the situation. She does not know how to help. She mentioned several times through the conversation that she is looking for an apartmentand she cannot find it because she has no job and with her age they usually turn her away. She does get food stamps and WIC for her children, but from those food stamps she also feeds her boyfriend. Very sad situation. Unfortunately, there is not too much I can do. I think this girl has too many things on her shoulder. She has had some studies before. Nothing was wrong with them. MEDICATIONS Reviewed her medications. ALLERGIES I reviewed her allergies. EXAMINATION I reviewed her vital signs. Very vague symptoms. I checked her ENT and it is unremarkable. Neck: Supple. Lungs: Clear to auscultation. Heart: Regular with clear S1 and S2. Abdomen: Obese. Bowel sounds present. There was no real guarding or rebound or severe tenderness other than some discomfort in herleft lower upper quadrant. DIAGNOSTIC DATA Normal electrolytes, liver function, kidney function, and a UA negative for infection. Also, thyroidfunction is normal. IMPRESSION/REPORT/PLAN 1. Anxiety. 2. Adjustment disorder with depressed mood. I decided to suggest to this girl to get more help for housing. I recommended a visit to the psychologist. I told her to worry about herself and her son at this moment and try not to worry too much about other peoples problems. She needs to deal with her own situation. She is too young to have so manythings going on. I gave her a prescription for hydroxyzine 50 mg one p.o. 3 times a day as needed for insomnia, anxiety, and she is going to use paroxetine 10 mg p.o. per day. I instructed her to come in the next few weeks to check how she is doing. She does not smoke, drink alcohol, or use any illicit drugs at this moment, and she is not suicidal. GDD:sbs Doc#: [id number] Electronically Signed By:DK MEYER MD On 06/10/2010 09:09 AM Source: [facility] ISJDICTAPHONESYS Document Id: [id number] documented in this encounter Miscellaneous Notes Miscellaneous - Joe Sanders, AllyssaPWanderN. - 06/03/2010 3:09 PM CDT Pediatric Organic Gardening Teacher Intake/History Pediatric Organic Gardening Teacher Intake/History Entered On: 06/03/2010 15:13 CDT Performed On: 06/03/2010 15:09 CDT by JOE SANDERS LPN Intake Chief Complaint: Stomach aches, not sleeping, and stress issues. Temperature Core: 36.4DegC(Converted to: 97.5DegF) (LOW) Peripheral Pulse Rate: 76bpm Heart Rhythm: Regular Respiratory Rate: 20br/min Systolic Blood Pressure: 118mmHg Diastolic Blood Pressure: 78mmHg NIBP Mean: 91mmHg BP Reading Side: Right upper extremity Height: 149.50cm(Converted to: 4ft 11in, 4.90ft, 58.86in) Actual Weight: 88.600kg(Converted to: 195lb 5oz, 195.330lb, 3,125.273oz) Clinic BSA: 1.92 Body Mass Index: 40kg/m2 Dosing Weight Clinic: 88.60kg JOE SANDERS JUANCARLOS CEJA - 06/03/2010 15:09 CDT Subjective Pain Symptoms: Yes JOE SANDERS JUANCARLOS CEJA - 06/03/2010 15:09 CDT Pain Pain Assessment Grid Pain 1 Location: Abdomen Laterality: Left Intensity: 9 JOE SANDERS JUANCARLOS CEJA - 06/03/2010 15:09 CDT Dependent Habits Tobacco Use/Currently Using: No Tobacco Use/Last 12 months: No Exposure to Tobacco Smoke: Lives with someone who smokes Alcohol Use: No MARILYNJOE LEAHY JUANCARLOS CEJA - 06/03/2010 15:09 CDT Allergy Allergies (Active) Cats Estimated Onset Date: Unspecified ; Comment: has allergy to cats ; Created By: CLIVE MACKAY LPN; Reaction Status: Active ; Category: Other ; Substance: Cats ; Type: Allergy ; Updated By: RAYMOND MACKAY LPN; Reviewed Date: 06/03/2010 15:08 CDT Source: [facility] [employer] Document Id: [id number] CDT!29 Miscellaneous - Dk Meyer M.D. - 06/03/2010 2:13 PM CDT CL June 04, 2010 NORAH CHUN [address] [facility] [address] [place] [address] [facility] Patient Number: [id number] Dear Ms. Chun: Your blood work from yesterday came back, all good. Your sodium, potassium, liver function, blood sugar, kidney function are all normal as well as your urine. Thyroid function is normal. Please take the medication that I started you on yesterday and see if that helps some of your symptoms. Also pleasevisit the psychologist as we discussed yesterday. Thank you. Sincerely, Dk Meyer MD [facility] GDD:sap Doc#: [id number] Source: [facility] ISJDICTAPHONESYS Document Id: [id number] documented in this encounter Plan of Treatment Not on filedocumented as of this encounter Visit Diagnoses Not on filedocumented in this encounter
--- OUTSIDE RECORDS SUMMARY | 2022-07-09 20:46 | XMS_ITS | Encounter Summary ---
:1990 Author Organization [facility] Address [address] [place] [address] Care Team Providers Name Role Phone Unavailable Primary Care Provider Unavailable Encounter Details Date Type Department Care Team Description 11/26/2009 Hospital Encounter [facility]X [facility] [place] [...] you attend latter day or Never 2020 advent services? Do you [...]
--- OUTSIDE RECORDS SUMMARY | 2022-07-09 20:47 | XMS_ITS | Encounter Summary ---
:1990 Author Organization [facility] Address [address] [place] [address] Care Team Providers Name Role Phone Unavailable Primary Care Provider Unavailable Encounter Details Date Type Department Care Team Description 05/08/2009 Hospital Encounter [facility]X [facility] [place] [...] or relatives? How often do you attend advent or Never 2020 latter day services? Do you belong to any clubs or No 06/25/2021 organizations such as advent groups, unions, fraternal or athletic groups, or [...]
--- OUTSIDE RECORDS SUMMARY | 2022-07-09 20:47 | XMS_ITS | Encounter Summary ---
:1990 Author Organization [facility] Address [address] [place] [address] Care Team Providers Name Role Phone Unavailable Primary Care Provider Unavailable Encounter Details Date Type Department Care Team Description 05/08/2009 Hospital Encounter HX [facility] ED Richmond Riggins, R.N. [address] [place] [address] (Wo rk) Social History Tobacco [...] do you attend scientologist or Never 2020 denominational services? Do you [...]
--- OUTSIDE RECORDS SUMMARY | 2022-07-09 20:47 | XMS_ITS | Encounter Summary ---
:1990 Author Organization [facility] Address [address] [place] [address] Care Team Providers Name Role Phone Unavailable Primary Care Provider Unavailable Encounter Details Date Type Department Care Team Description 04/11/2009 Hospital Encounter HX [facility] Dk Randolph M.D. [address] [address] [place] [address] (Wo rk) Social History Tobacco Use Types [...] do you attend spiritism or Never 2020 anabaptism services? Do you [...] this encounter Progress Dk Chan M.D. - 04/11/2009 1:52 PM CDT CN DATE OF SERVICE: 04/11/2009 REASON FOR VISIT This 18-year-old female comes today with several complaints. HISTORY OF PRESENT ILLNESS The patient says she has been feeling for the first time in the past week dizzy with a headache on only one side of her head, especially the left side, and abdominal pain, some nausea, and urinary frequency. She also says that her urine looks dirty. The patient said that her last menstrual period was in February, probably at the beginning, and she did not get it in March. She had 3 home tests that were negative. The patient is sexually active and occasionally she uses condoms with her boyfriend. ALLERGIES CATS. EXAMINATION Vital signs: Blood pressure 90/40. Pulse 68. Respiratory rate 18. Temperature 37. Weight 84.8 kg. Height 150 cm. The patient is not in any distress. She is excited if she could be . I examined her. Mucous membranes moist. Lungs and heart: Unremarkable. Abdomen: Obese. Bowel sounds present. No guarding. No distention. Some discomfort in her left lower quadrant, suprapubic area, but no rebound. DIAGNOSTIC DATA UA is negative for infection, but the test in blood was positive. IMPRESSION/REPORT/PLAN 1. I Para 0 gestational age unknown. 2. Teenager . I had a long conversation with this patient in regards to her care. I also talked to her about the shared care program, and I provided her information about with a book anddifferent pamphlets, support groups, etc., and recommended her to come for a first OB visit in 2 weeks or so. I need to order an ultrasound to determine exactly how far she is , and also I willorder the blood work on her next visit. The patient says that she has good support from her mother and her boyfriend. I prescribed vitamins to her local pharmacy for #100 and 3 refills. The patient should start the vitamins as of the day of the visit. GISSELLE:emanuel Doc#: [id number] Electronically Signed By:DK MEYER MD On 04/16/2009 12:31 PM Source: [facility] ISJDICTAPHONESYS Document Id: [id number] documented in this encounter Miscellaneous Notes Miscellaneous - Dk Meyer M.D. - 04/11/2009 3:29 PM CDT Ambulatory Depart Summary [facility] - [address] [place] [address] Visit Information Name: AMMY BARBRA MAYORGA Current Date: 04/11/2009 15:29:17 Primary Care Provider: BARBRA GIMENEZ has been given the following [...] once a day Additional Information: Yes - Medication list reviewed, patient verbalizes understanding of current medications, and list given to patient. Source: [facility] POWERCHART Document Id: [id number] Electronically signed by Maycol [facility] Machine Printer [id number] at 03/01/2017 8:21 AM CDT Miscellaneous - Conversion, Historical Provider Ser - 04/11/2009 2:18 PM CDT Adult Client Technical Support Associate Intake/History Adult Client Technical Support Associate Intake/History Entered On: 04/11/2009 14:23 CDT Performed On: 04/11/2009 14:18 CDT by RAYMOND MACKAY LPN Intake Chief Complaint: stomach ache, headache Onset of Symptoms: started this week LMP Date: 02-28-09 Temperature Core: 37.0DegC(Converted to: 98.6DegF) Peripheral Pulse Rate: 68bpm Respiratory Rate: 16br/min Systolic Blood Pressure: 90mmHg (LOW) Diastolic Blood Pressure: 40mmHg (<LLOW) NIBP Mean: 57mmHg BP Location: Right upper extremity Height: 150.00cm(Converted to: 4ft 11in, 4.92ft, 59.06in) Clinic BSA: 1.88 Body Mass Index: 38kg/m2 Actual Weight: 84.800kg(Converted to: 186.952lb) Dosing Weight Clinic: 84.80kg RAYMOND MACKAY [facility] 04/11/2009 14:18 CDT Subjective Pain Symptoms: Yes RAYMOND MACKAY [facility] 04/11/2009 14:18 CDT Pain Pain Assessment Grid Pain 1 Location: Head (Comment: and stomach pain [RAYMOND MACKAY [facility] 04/11/2009 14:18 CDT] ) Laterality: Bilateral (Comment: head pain on left side [RAYMOND MACKAY [facility] 04/11/2009 14:18 CDT] ) Intensity: 5 RAYMOND MACKAY [facility] 04/11/2009 14:18 CDT Dependent Habits Tobacco Use/Currently Using: No RAYMOND MACKAY [facility] 04/11/2009 14:18 CDT Alcohol Use Grid Alcohol Use: None RAYMOND MACKAY [facility] 04/11/2009 14:18 CDT Allergies Source: [facility] [employer] Document Id: [id number] CDT!30 documented in this encounter Plan of Treatment Not on filedocumented as of this encounter Visit Diagnoses Not on filedocumented in this encounter
--- OUTSIDE RECORDS SUMMARY | 2022-07-09 20:47 | XMS_ITS | Encounter Summary ---
:1990 Author Organization [facility] Address [address] [place] [address] Care Team Providers Name Role Phone Unavailable Primary Care Provider Unavailable Encounter Details Date Type Department Care Team Description 10/01/2006 Hospital Encounter [facility]X [facility] Ryan Meraz W, P.A. [address] [place] [address] (Wo rk) Social History Tobacco Use Types [...] do you attend christian or Never 2020 buddhism services? Do you [...]
--- OUTSIDE RECORDS SUMMARY | 2022-07-09 20:47 | XMS_ITS | Encounter Summary ---
:1990 Author Organization [facility] Address [address] [place] [address] Care Team Providers Name Role Phone Unavailable Primary Care Provider Unavailable Encounter Details Date Type Department Care Team Description 04/04/2001 Hospital Encounter [facility]X [facility] Marlena Wylie M.D. [address] [place] [address] (Wo rk) Social History Tobacco [...] you attend latter day or Never 2020 restorationist services? Do you [...]
--- OUTSIDE RECORDS SUMMARY | 2022-07-09 20:47 | XMS_ITS | Encounter Summary ---
:1990 Author Organization [facility] Address [address] [place] [address] Care Team Providers Name Role Phone Unavailable Primary Care Provider Unavailable Encounter Details Date Type Department Care Team Description 04/18/2002 Hospital Encounter [facility]X [facility] Ryan Meraz W, P.A. [address] [place] [address] (Wo rk) Social History Tobacco [...] or relatives? How often do you attend adventism or Never 2020 latter-day services? Do you belong to any clubs or No 06/25/2021 organizations such as adventism groups, unions, fraternal or athletic groups, or [...]
--- OUTSIDE RECORDS SUMMARY | 2022-07-09 20:47 | XMS_ITS | Encounter Summary ---
:1990 Author Organization [facility] Address [address] [place] [address] Care Team Providers Name Role Phone Unavailable Primary Care Provider Unavailable Encounter Details Date Type Department Care Team Description 04/25/2009 Hospital Encounter [facility]X [facility] Dk Randolph M.D. [address] [address] [place] [address] (Wo rk) Social History Tobacco Use Types [...] do you attend confucianist or Never 2020 yarsanism services? Do you [...] this encounter Progress Dk Chan M.D. - 04/30/2009 12:00 AM CDT CN DATE OF SERVICE: 04/30/2009 REASON FOR VISIT This 18-year-old female comes in on 04/25/09 with her mother and boyfriend for her first visit. HISTORY OF PRESENT ILLNESS The patient is 1, para 0, unknown last menstrual period. The ultrasound has not been done yet to determine how far she is. PAST, FAMILY, AND SOCIAL HISTORY Her past medical history is unremarkable. She only has seasonal allergies to dust. The patient has never had a surgical procedure. Never had a pap smear. The family history is remarkable for diabetes in her paternal grandfathers, hypertension in maternalgrandmother, varicose veins in paternal grandmother, and thyroid dysfunction in her maternal aunt. Social history: She is single. She is a student. She lives with her parents, younger siblings, and her boyfriend in the same house. She does not smoke, drink alcohol, or use any illicit drugs and neverused them. Genetic screening and teratology counseling negative for all of the diseases listed under the A, C, or G form. Infection history is all negative for tuberculosis, genital herpes, viral illness, or STD history. MEDICATIONS The only medication she has tried since she has not had her period is Excedrin x 1 and the vitamins. EXAMINATION Vital signs reviewed from the nurses notes. Head: Normocephalic, atraumatic. Thyroid not enlarged. Eye examination normal. Breasts: Nipples everted. Palpation without masses or lumps. Lungs are clear to auscultation. Heart is regular with a clear S1 and S2. Abdomen: Bowel sounds are present without gua rding or distention. Extremities: No edema. Skin: Normal. Vulva normal. Vagina normal. Cervix: No inflammation, very healthy. Uterus size is probably six to weight weeks. Adnexa not enlarged. Probably her pelvis is gynecoid type. IMPRESSION/REPORT/PLAN 1, para 0, gestational age unknown. The patient will have her ultrasound done next week, and I will see her back in two weeks. At that time I will order the blood work necessary. GISSELLE:naresh Doc#: [id number] Electronically Signed By:DK WALSH MD On 04/30/2009 05:43 PM Source: [facility] ISJDICTAPHONESYS Document Id: [id number] documented in this encounter Miscellaneous Notes Dk Ramos M.D. - 05/01/2009 12:00 AM CDT CL May 01, 2009 NORAH Harjeet CHUN [address] [facility] [address] [facility] Patient Number: [id number] Dear Ms. Chun: Your Pap smear was normal, but it was reported that probably you have extra normal mario alberto in your vagina that we need to probably treat. On your next visit we should discuss this finding. I also know that you had the ultrasound done yesterday and it showed that you had one single baby and they gave you an estimate of your due date and how far you are . Sincerely, Dk Walsh MD [facility] GDD:tjl Doc#: [id number] Source: [facility] ISJDICTAPHON[facility]YS Document Id: [id number] Zaheer - Dk Walsh M.D. - 04/30/2009 12:00 AM CDT CL April 30, 2009 NORAH [address] [facility] [place] [address] [facility] Patient Number: [id number] Dear Wander Chun: Your vaginal swab final was negative for gonorrhea and chlamydia. Sincerely, Dk Walsh MD [facility] GDD:sbs Doc#: [id number] Source: [facility] ISJDICTAPHON[facility]YS Document Id: [id number] Miscellaneous - Joe Sanders L.PWanderNWander - 04/25/2009 3:44 PM CDT Adult Ornament Setter Intake/History Adult Ornament Setter Intake/History Entered On: 04/25/2009 15:51 CDT Performed On: 04/25/2009 15:44 CDT by JOE SANDERS LPN Intake Chief Complaint: OB visit Temperature Core: 36.9DegC(Converted to: 98.4DegF) Peripheral Pulse Rate: 84bpm Respiratory Rate: 20br/min Systolic Blood Pressure: 116mmHg Diastolic Blood Pressure: 68mmHg NIBP Mean: 84mmHg BP Location: Right upper extremity Height: 151.00cm(Converted to: 4ft 11in, 4.95ft, 59.45in) Clinic BSA: 1.91 Body Mass Index: 38kg/m2 Actual Weight: 86.800kg(Converted to: 191.361lb) Dosing Weight Clinic: 86.80kg JOE SANDERS LPN - 04/25/2009 15:44 CDT Subjective Pain Symptoms: No JOE SANDERS LPN - 04/25/2009 15:44 CDT Dependent Habits Tobacco Use/Currently Using: No Tobacco Use/Last 12 months: No JOE SANDERS LPN - 04/25/2009 15:44 CDT Alcohol Use Grid Alcohol Use: None JOE SANDERS LPN - 04/25/2009 15:44 CDT Allergies Allergies (Active) Cats Estimated Onset Date: Unspecified ; Comment: has allergy to cats ; Created By: CLIVE MACKAY LPN; Reaction Status: Active ; Category: Other ; Substance: Cats ; Type: Allergy ; Updated By: RAYMOND MACKAY LPN; Reviewed Date: 04/25/2009 15:44 CDT Source: [facility] POWERCHART Document Id: [id number] CDT!23 documented in this encounter Plan of Treatment Not on filedocumented as of this encounter Procedures Procedure Name Priority Date/Time Associated Comments Diagnosis ZZPATHOLOGY NON-DIALYSIS BIOMED TECHNICIAN Routine 04/25/2009 12:00 Resu lts for this CYTOLOGY AM CDT procedure are i n the results section. documented in this encounter Results ZZPATHOLOGY NON-DIALYSIS BIOMED TECHNICIAN CYTOLOGY (04/25/2009 12:00 AM CDT) Specimen (Source) Anatomical Location Collection Method / Collectio n Time Received Time / Laterality Volume 04/25/2009 Narrative [facility] - 04/29/20 09 10:39 AM CDT [address] [place] [id number] ? Patient: NORAH CHUN [address] [place], [place] [address] [facility] [employer] Sec. #: [id number] /Age/Sex: 1990 (Age: 18)F Collected: ? 04/25/2009 Received: ?04/26/2009 Reported: ?04/29/2009 Physician(s): Jackie WALSH MD Copy To: [facility] S ??[phone] [facility], ??[place] ??[address] CYTOPATHOLOGY DIALYSIS BIOMED TECHNICIAN REPORT FINAL CYTOLOGIC DIAGNOSIS Pap Smear - ThinPrep: NEGATIVE FOR INTRAEPITHELIAL LESION OR MALIGNANCY PREDOMINANCE OF COCCOBACILLI CONSISTENT WITH SHIFT IN VAGINAL MARIO ALBERTO (POSSIBLE BACTERIAL VAGINOSIS -- CLINICA L CORRELATION SUGGESTED). MARKED ACUTE INFLAMMATION (AND ASSOCIATE D CHANGES). ENDOCERVICAL CELLS/COMPONENT PRESENT. SATISFACTORY SPECIMEN FOR EVALUATION. Electronically Signed Out By amb/04/29/[address](ASCP) The Pap test is a screening procedure an d, as such, is subject to both false positive and false negative result s as evidenced by published data. It is not a diagnostic test and results should be interpreted in the context of the patient' s history and ot her clinical findings. ??Obtaining periodic Pap tests may help to minimize the consequences of any false negatives that may occur. SPECIMEN(S) RECEIVED: Pap Smear - ThinPrep CLINICAL HISTORY: Historical Provider LAB PATHOLOGY/CYTOLOGY ORDER RIZWANA Performing Organization Address City/State/ZIP Code Phon e Number [facility] documented in this encounter Visit Diagnoses Not on filedocumented in this encounter
--- OUTSIDE RECORDS SUMMARY | 2022-07-09 20:47 | XMS_ITS | Encounter Summary ---
:1990 Author Organization [facility] Address [address] [place] [address] Care Team Providers Name Role Phone Unavailable Primary Care Provider Unavailable Encounter Details Date Type Department Care Team Description 05/30/2009 Hospital Encounter [facility] Osman Barajas M.D. [address] [place], [place] [address] (Wo rk) Social History Tobacco Use Types [...] do you attend religious or Never 2020 anglican services? Do you [...]
--- OUTSIDE RECORDS SUMMARY | 2022-07-09 20:47 | XMS_ITS | Encounter Summary ---
:1990 Author Organization [facility] Address [address] [place] [address] Care Team Providers Name Role Phone Unavailable Primary Care Provider Unavailable Encounter Details Date Type Department Care Team Description 09/13/2006 Hospital Encounter [facility]X [facility] ED Provider, [...] do you attend buddhism or Never 2020 muslim services? Do you belong to any clubs [...]
--- OUTSIDE RECORDS SUMMARY | 2022-07-09 20:47 | XMS_ITS | Encounter Summary ---
:1990 Author Organization [facility] Address [address] [place] [address] Care Team Providers Name Role Phone Unavailable Primary Care Provider Unavailable Encounter Details Date Type Department Care Team Description 05/26/2005 Hospital Encounter [facility] Jeffrey Vann D.O. [address] [place] [phone] (Wo rk) Social History Tobacco Use Types [...] do you attend scientology or Never 2020 voodoo services? Do you [...]
--- OUTSIDE RECORDS SUMMARY | 2022-07-09 20:47 | XMS_ITS | Encounter Summary ---
:1990 Author Organization [facility] Address [address] [place] [address] Care Team Providers Name Role Phone Unavailable Primary Care Provider Unavailable Encounter Details Date Type Department Care Team Description 08/31/2006 Hospital Encounter HX [facility] Silvana Santo P.AWander [address] [place] [address] (Wo rk) Social History Tobacco Use Types [...] do you attend mormonism or Never 2020 congregational services? Do you [...]
--- OUTSIDE RECORDS SUMMARY | 2022-07-09 20:47 | XMS_ITS | Encounter Summary ---
:1990 Author Organization [facility] Address [address] [place] [address] Care Team Providers Name Role Phone Unavailable Primary Care Provider Unavailable Encounter Details Date Type Department Care Team Description 08/29/2008 Hospital Encounter HX [facility] Silvana Santo P.AWander [address] [place] [address] (Wo rk) Social History Tobacco Use Types [...] do you attend christian or Never 2020 baptism services? Do you [...]
--- OUTSIDE RECORDS SUMMARY | 2022-07-09 20:47 | XMS_ITS | Encounter Summary ---
:1990 Author Organization [facility] Address [address] [place] [address] Care Team Providers Name Role Phone Unavailable Primary Care Provider Unavailable Encounter Details Date Type Department Care Team Description 08/17/2006 Hospital Encounter HX [facility] Silvana Santo P.AWander [address] [place] [address] (Wo rk) Social History Tobacco Use Types [...] you attend latter day or Never 2020 episcopal services? Do you [...]
--- OUTSIDE RECORDS SUMMARY | 2022-07-09 20:47 | XMS_ITS | Encounter Summary ---
:1990 Author Organization [facility] Address [address] [place] [address] Care Team Providers Name Role Phone Unavailable Primary Care Provider Unavailable Encounter Details Date Type Department Care Team Description 05/13/2006 Hospital Encounter HX [facility] Randal Abraham M.D. [address] [place] [address] (Wo alejandra) Social History Tobacco Use Types Packs/Day Years [...] or relatives? How often do you attend taoist or Never 2020 scientologist services? Do you belong to any clubs or No 06/25/2021 organizations such as taoist groups, unions, fraternal or athletic groups, or [...]
--- OUTSIDE RECORDS SUMMARY | 2022-07-09 20:47 | XMS_ITS | Encounter Summary ---
:[address] [facility] Address [address] [place] [address] Care Team Providers Name Role Phone Unavailable Primary Care Provider Unavailable Encounter Details Date Type Department Care Team Description 04/30/2009 Hospital Encounter HX [facility] Hansen M.D. [address] [address] [place] [address] (Wo rk) Social History Tobacco Use Types [...] do you attend scientologist or Never 2020 christianity services? Do you [...] Name Priority Date/Time Associated Diagnosis Comme nts US SEO COORDINATOR LESS THAN Routine 04/30/2009 10:42 AM R esults for this 14 WEEKS MULTI CDT procedure are in the results section. documented in this encounter Results US SEO COORDINATOR less than 14 weeks multi (04/30/2009 10:42 AM CDT) Anatomical Region Laterality Modality Ultrasound Specimen (Source) Anatomical Collection Method Collection Time Re ceived Time Location / / Volume Laterality 04/30/2009 10:42 AM CDT Narrative 04/30/2009 10:47 AM CDT Exam: ?? US OB LESS THAN 14 WEEKS ? Clinical history: Check size and dates ?? Comparison: None ?? Findings: There is a gestational sac wit h a pole and yolk sac seen within. There is cardiac activity w ithin the pole at 128 beats per minute. There is no free fluid identified within the pelvis. The right ovary measures 2.6 x 1.9 x 1.9 cm and exhibits a small hypoechoic area measuring 1.8 x 1.5 cm. There is normal flow in the right ovary. Left ovary measures 2.6 x 2 .2 x 2.5 cm and exhibits normal flow. The crown-rump length is a 1 cm corresponding to a gestational age 7 weeks one day. The sudhakar n sac diameter is 2.6 cm corresponding to an ultrasound age is 7 weeks 6 days. The ultrasound estimated gestational age is 7 weeks one day with an estimated date of confinement of 12/16/2009. The uterus is otherwise normal in appearance. ?? Impression: ?? 1. Single live intrauterine gestation wi th an ultrasound gestational age is 7 weeks one day and estimated petra e of confinement of 12/16/2009. Suggest an anatomic survey at 18-22 week s. 2. Probable left ovarian corpus luteum c yst. Procedure Note Scott Ayala M.D. / Provider, Laith paulson M.D. - 03/01/2017 Exam: US OB LESS THAN 14 WEEKS Clinical history: Check size and dates Comparison: None Findings: There is a gestational sac wit h a pole and yolk sac seen within. There is cardiac activity w ithin the pole at 128 beats per minute. There is no free fluid identified within the pelvis. The right ovary measures 2.6 x 1.9 x 1.9 cm and exhibits a small hypoechoic area measuring 1.8 x 1.5 cm. There is normal flow in the right ovary. Left ovary measures 2.6 x 2 .2 x 2.5 cm and exhibits normal flow. The crown-rump length is a 1 cm corresponding to a gestational age 7 weeks one day. The sudhakar n sac diameter is 2.6 cm corresponding to an ultrasound age is 7 weeks 6 days. The ultrasound estimated gestational age is 7 weeks one day with an estimated date of confinement of 12/16/2009. The uterus is otherwise normal in appearance. Impression: 1. Single live intrauterine gestation wi th an ultrasound gestational age is 7 weeks one day and estimated petra e of confinement of 12/16/2009. Suggest an anatomic survey at 18-22 week s. 2. Probable left ovarian corpus luteum c yst. Virginia Acevedo R.V.T., R.D.M.S. IMG OB US PROCEDURES documented in this encounter Visit Diagnoses Not on filedocumented in this encounter
--- OUTSIDE RECORDS SUMMARY | 2022-07-09 20:47 | XMS_ITS | Encounter Summary ---
:1990 Author Organization [facility] Address [address] [place] [address] Care Team Providers Name Role Phone Unavailable Primary Care Provider Unavailable Encounter Details Date Type Department Care Team Description 11/07/2007 Hospital Encounter HX [facility] Ajay Samuels, P.A.-C. [address] [place] [id number] (Wo rk) Social History Tobacco Use Types [...] do you attend buddhism or Never 2020 latter-day services? Do you [...]
--- OUTSIDE RECORDS SUMMARY | 2022-07-09 20:47 | XMS_ITS | Encounter Summary ---
:1990 Author Organization [facility] Address [address] [place] [address] Care Team Providers Name Role Phone Unavailable Primary Care Provider Unavailable Encounter Details Date Type Department Care Team Description 12/29/2006 Hospital Encounter HX [facility] Provider, [facility] Social History Tobacco Use Types Packs/Day Years [...] do you attend christian or Never 2020 rastafarian services? Do you [...]
--- OUTSIDE RECORDS SUMMARY | 2022-07-09 20:47 | XMS_ITS | Encounter Summary ---
:1990 Author Organization [facility] Address [address] [place] [address] Care Team Providers Name Role Phone Unavailable Primary Care Provider Unavailable Encounter Details Date Type Department Care Team Description 04/30/2009 Hospital Encounter HX NO MAPPING Jackie Meyer M.D. [address] [address] [place] [phone] (Wo rk) Social History Tobacco Use Types [...] do you attend rastafari or Never 2020 confucianism services? Do you [...]
--- OUTSIDE RECORDS SUMMARY | 2022-07-09 20:47 | XMS_ITS | Encounter Summary ---
:1990 Author Organization [facility] Address [address] [place] [address] Care Team Providers Name Role Phone Unavailable Primary Care Provider Unavailable Encounter Details Date Type Department Care Team Description 07/05/2006 Hospital Encounter HX [facility] Crystal Brambila M.D. [address] [place], [place] [address] (Wo rk) Social History [...] do you attend orthodoxy or Never 2020 samaritan services? Do you [...]
--- OUTSIDE RECORDS SUMMARY | 2022-07-09 20:47 | XMS_ITS | Encounter Summary ---
:1990 Author Organization [facility] Address [address] [place] [address] Care Team Providers Name Role Phone Unavailable Primary Care Provider Unavailable Encounter Details Date Type Department Care Team Description 04/10/2003 Hospital Encounter HX [facility] Jeffrey Vann D.O. [address] [place] [phone] (Wo rk) Social History Tobacco Use [...] do you attend spiritism or Never 2020 adventist services? Do you belong to any clubs [...]
[2022-07-09 21:05] LABS: Strep A DNA Probe* Not Detected (No Detected)
[2022-07-09 21:13] LABS: PCR FLU A Negative PCR FLU A (Negative); PCR FLU B Negative PCR FLU B (Negative); PCR RSV Negative PCR RSV (Negative)
[2022-07-09 21:14] LABS: SARS PCR* Negative SARS-CoV-2 (Negative)
--- NOTE | 2022-07-09 21:30 | ED_ITS ---
HPI - Headache General Date Seen: 07/09/22 Chief Complaint: Headache/Migraine Stated Complaint: SEVERE HEADACHE,VISION ISSUES IN LEFT EYE Time Seen by Provider: 07/09/22 19:52 Source: patient Mode of arrival: ambulatory Limitations: no limitations History of Present Illness HPI Narrative: Patient is a 32-year-old female presents here with a headache and has some blurry vision. She has been sick for the last 3-4 days, with a low-grade fever, of 100?. He has no vomiting, no neck pain or stiffness, no rashes, her kids have been sick also during this time period, and they have tested negative for COVID. She was positive for influenza A approximately 1 month ago along with her kids, and has had COVID she tells me 3 times and has her normal primary series. She has had no vomiting, no diarrhea, no rashes, no abdominal pain coughing cold-like symptoms. MD elicited complaint: headache Onset (ago): day(s) Onset description: gradually Location: diffuse Severity: moderate Quality & Timing: throbbing and sharp Exacerbating factors: none Relieving factors: other (Tylenol helps) Associated symptoms: vision loss (Not vision loss but vision blurriness), malai se and lightheadedness Treatments prior to arrival: acetaminophen Related Data Allergies Allergy/AdvReac Type Severity Reaction Status Date / Time No Known Drug Allergies Allergy Verified 07/09/22 19:54 Review of Systems Status of ROS: Reports: 10 or more systems reviewed and unremarkable except as noted in History and below PFSH PFS Social History Smoking Status: Never smoker How often do you have a drink containing alcohol: never AUDIT-C Alcohol total score: 0 Non-prescribed substance use: denies use Exam Narrative: Exam Narrative: Patient is seen in room 2, with her potential [id number], she is in no apparent distress speaking to me normally laughing, not photophobic. Her pupils are equal round reactive to light there is no scleral icterus fundi are normal, TMs are normal oropharynx is normal, neck is supple full range of motion, no lym phadenopathy anterior posterior chains she has no meningismus noted at all, chest is clear by with no wheezing crackles noted heart sounds are normal her abdomen is soft and obese there is no guarding no past splenomegaly bowel sounds are normal. And no tenderness on palpation. No CVA tenderness is noted. She moves all extremities independently well fine motor movements are normal, she is able to walk for me. And her coordination is excellent. Her speech is normal. Const: Vital Signs, click to edit/add: Vital Signs - 24 hr 07/09/22 19:50 Temperature 98.5 F Pulse Rate [Right Pulse Oximeter] 89 Blood Pressure [Ri ght Upper Arm] 115/78 Pulse Oximetry 99 Oxygen Delivery Me thod Room Air Documenting provider has reviewed patient's vital signs: yes Course Vital Signs Vital signs: Initial Vital Signs Temperature 98.5 F 07/09/22 19:50 Temperature Source Temporal Artery Scan 07/09/22 19:50 Pulse Rate 89 07/09/22 19:50 Blood Pressure 115/78 07/09/22 19:50 Blood Pressure Mean 90 07/09/22 19:50 Blood Pressure Position Sitting 07/09/22 19:50 Pulse Oximetry 99 07/09/22 19:50 Oxygen Delivery Method 07/09/22 19:50 Vital Signs Temperature 98.5 F 07/09/22 19:50 Pulse Rate 89 07/09/22 19:50 Blood Pressure 115/78 07/09/22 19:50 Pulse Oximetry 99 07/09/22 19:50 Oxygen Delivery Method 07/09/22 19:50 Temperature 98.5 F 07/09/22 19:50 Pulse Rate 89 07/09/22 19:50 Blood Pressure 115/78 07/09/22 19:50 Pulse Oximetry 99 07/09/22 19:50 Oxygen Delivery Method 07/09/22 19:50 MDM - Headache MDM Narrative Medical decision making narrative: Life-threatening differential diagnosis is include meningitis, encephalitis, pneumonia, intra-abdominal infection, bacteremia, other differential diagnosis include but are not limited to viral upper respiratory tract infection, strep, urinary tract infection, skin infection, osteomyelitis, influenza, fungal infections, diskitis, epidural abscess, or fever of unknown origin. Patient looks well nontoxic looking, I think this is more of a viral type illness, I think more consistent use of Tylenol and or more ibuprofen would be helpful. I went over signs and symptoms of worsening condition she should follow-up with these occur, Differential Diagnosis Differential diagnosis: Likely migraine, tension headache, subarachnoid hemorrhage, headache, meningitis, sinusitis and postconcussion syndrome Medical Records Attestation: I reviewed the patient's medical records. Lab Data Attestation: I reviewed the patient's lab results. Labs: Lab Results 07/09/22 07/09/22 07/09/22 Range/Units 20:22 20:22 20:22 Urine Color Yellow (Yellow) Urine Appearance Clear (Clear) Urine pH 6.0 (5.0-8.5) Ur Specific [place] 1.025 (1.000-1.030) Urine Protein Negative (Negative) Urine Glucose (UA) Negative (Negative) Urine Ketones Trace A (Negative) Urine Blood Negative (Negative) Urine Nitrite Negative (Negative) Urine Bilirubin Negative (Negative) Urine Urobilinogen 1.0 (0.2-1.0) Ur Leukocyte Esterase Negative (Negative) Urine RBC 0-2 (0-2) Urine WBC 0-2 (0-5) Ur Squamous Epith Cells None (None-Few) Calcium Oxalate Crystal Few A (None) Urine Bacteria Few A (None) SARS-CoV-2 (PCR) Negative SARS-CoV-2 (Negative) Influenza Type A (PCR) Negative PCR FLU A (Negative) Influenza Type B (PCR) Negative PCR FLU B (Negative) RSV (PCR) Negative PCR RSV (Negative) Group A Strep DNA Not Detected (No Detected) Discharge Plan Discharge Clinical Impression: Headache, Viral illness Patient Disposition: Home w/ Parent or Adult Condition: Stable Instructions: Viral Syndrome (ED), General Headache (ED) Additional Instructions: Home, rest, ibuprofen 800 mg p.o. t.i.d. you can use Tylenol also. Off work for the next 2 days, note written. Return as needed, but all the testing for influenza, COVID, RSV, and your urinalysis were negative. Follow Up/Referrals: Provider,Not a Local [Primary Care Provider] - Stand Alone Forms: [employer] ([email or web address]) Info Instructions
== END 2022-07-09 21:52 | disposition home or self-care (01) ==
PROVIDERS: Emergency Provider Family Medicine
DX: R51.9 Headache, unspecified (principal); B34.9 Viral infection, unspecified
CPT/HCPCS: 81001; 87086; 87502; 87634; 87635; 87651; 99283; 99284; A9270